=== PATIENT | male | born 2000 | race Caucasian/White ===

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

== ENCOUNTER → 2018-01-29 14:16 | Outpatient (CLI) | payer MEDICAID, SELFPAY ==
[2018-01-29 16:53] LABS: Anion Gap 5 (5-15); BUN 15 mg/dL (7-18); BUN/Creat Ratio 18.3 RATIO (10-20); Calcium,Total 9.4 mg/dL (8.5-10.1); Chloride 105 mmol/L (98-107); Creatinine, Serum 0.82 mg/dL (0.70-1.30); EST Glomerular Filtration Rate 128 mL/min (>60); Est Glom Filt Rate - Afr Amer 155 mL/min (>60); Glucose 90 mg/dL (74-106); Potassium 3.6 mmol/L (3.5-5.1); Sodium Level 142 mmol/L (136-145); Thyroid Stim Hormone (TSH) 2.61 uIU/mL (0.358-3.74)
== END ==
PROVIDERS: Family Provider Family Medicine; PCP Family Medicine; Visit Provider Family Medicine
DX: Z01.818 Encounter for other preprocedural examination (principal); E03.9 Hypothyroidism, unspecified; G80.1 Spastic diplegic cerebral palsy
CPT/HCPCS: 36415; 80048; 84443; 97110; 97140

== ENCOUNTER 2018-02-05 01:50 | Emergency (ER) | payer MEDICAID, SELFPAY ==
[2018-02-05 01:50] VITALS: BP 148/69; PULSE 69; RESP 18; TEMP 36.9; O2SAT 100; BMI 18.6
--- NOTE | 2018-02-05 02:14 | ED.DCSUM_ITS ---
- ER Visit Summary Date of Service: 02/05/18 Chief Complaint: [] Postoperative leg pain History of Present Illness: The patient is a 17 M complaining of pain in his left Achilles and foot postoperative. 5 days ago he had a lengthening procedure done on his left Achilles at the [facility]. He has been having some pain in this area. He just took his last Toradol earlier today. He is taking no narcotics but was given a prescription for oxycodone that he never filled. He is also taking as needed Valium. Requesting something for pain. He said it hurts to walk on the side. The right side is not bothering him. Physical Examination: [] Vital signs reviewed General: Well-nourished well-developed Head: Normocephalic atraumatic Eyes: Pupils equal round and reactive to light extraocular movements intact ENT: TMs clear no hemotympanum no trauma Neck: Nontender full range of motion Cardiovascular: Regular rate rhythm no murmurs normal S1-S2 Respiratory: No distress clear to auscultation bilaterally chest nontender Abdomen: Soft nontender nondistended normal bowel sounds no masses Back: Nontender no CVA tenderness Extremities: Bilateral lower legs casted to mid martinez. Capillary refill bilateral feet normal. Normal dorsalis pedis pulses bilateral. Skin: Normal color no trauma Neuro alert oriented cranial nerves II through XII intact normal strength sensation reflexes Test Results: [] Emergency Department Course and Treatment: [] At this time I have a low suspicion for compartment syndrome. I do not think any to take off his cast. He is mainly here for pain control. Given a shot of morphine. Will fill his oxycodone as an outpatient. Will call his surgeon tomorrow for recheck in the office Treatment Plan: [] Disposition: [] Impression: [] Left foot postoperative pain This note was generated with [employer] dictation software. It may contain incorrect words, spelling, and punctuation that were not noted in review of the chart prior to signing ED Disposition - Plan for ED Patient: Chief Complaint: Lower Extremity Injury Referrals: Karissa Alberto MD [Primary Care Provider] -
--- NOTE | 2018-02-05 02:14 | ED.DEP ---
ED Disposition - Plan for ED Patient: Disposition: Home or Assisted Living Chief Complaint: Lower Extremity Injury Instructions: ED Post Op Pain Referrals: Karissa Alberto MD [Primary Care Provider] - Additional Instructions: Call Your surgeon to have your foot evaluated tomorrow
[2018-02-05] MEDS: Morphine 4 MG/ML Syringe IM (02:20)
[2018-02-05 02:43] VITALS: BP 132/67; PULSE 80; RESP 18; O2SAT 98
== END 2018-02-05 02:43 | disposition home or self-care (01) ==
PROVIDERS: Emergency Provider Emergency Medicine; Family Provider Family Medicine; PCP Family Medicine
DX: G89.18 Other acute postprocedural pain (principal); M79.672 Pain in left foot; Z79.899 Other long term (current) drug therapy; Z98.890 Other specified postprocedural states
CPT/HCPCS: 96372; 99282

== ENCOUNTER 2018-02-06 23:33 | Emergency (ER) | payer MEDICAID, SELFPAY ==
[2018-02-06 23:33] VITALS: BP 112/82; PULSE 128; RESP 20; TEMP 36.8; O2SAT 98; BMI 18.0
--- NOTE | 2018-02-06 23:43 | ED.VISSUMM ---
- ER Visit Summary Date of Service: 02/06/18 Chief Complaint: [] Left lower extremity pain History of Present Illness: The patient is a 17 M [] patient stated he has left lower extremity pain. It has been since he has surgery approximately a week ago on his Achilles. It hurts on the left side. He lengthening surgery. I saw him 2 days ago for the same pain. He gave a shot of morphine which helped. However he is only taking Tylenol volumes and baclofen. Physical Examination: [] Vital signs reviewed General: Well-nourished well-developed Head: Normocephalic atraumatic Eyes: Pupils equal round and reactive to light extraocular movements intact ENT: TMs clear no hemotympanum no trauma Neck: Nontender full range of motion Cardiovascular: Regular rate rhythm no murmurs normal S1-S2 Respiratory: No distress clear to auscultation bilaterally chest nontender Abdomen: Soft nontender nondistended normal bowel sounds no masses Back: Nontender no CVA tenderness Extremities: Nontender active range of motion ?4 extremities no trauma. Cast removed as well as dressings. His surgical incision on his posterior Achilles is clean dry intact without abnormalities. His lower leg is normal. There is no swelling. His pulses are good distally. There is no evidence of compartment syndrome. Good cap refill with normal color of his foot. Skin: Normal color no trauma Neuro alert oriented cranial nerves II through XII intact normal strength sensation reflexes Test Results: [] Emergency Department Course and Treatment: [] Given an injection of morphine and will be placed in a posterior leg splint. Given crutches. At this time it is likely secondary to his discomfort from his cast. He will be given a short course of Percocet for home. Will follow-up with his surgeon Treatment Plan: [] Disposition: [] Impression: [] Post operative lower extremity pain This note was generated with [employer] dictation software. It may contain incorrect words, spelling, and punctuation that were not noted in review of the chart prior to signing ED Disposition - Plan for ED Patient: Chief Complaint: Lower Extremity Injury Referrals: Adam Paiz MD [Primary Care Provider] -
--- NOTE | 2018-02-07 00:16 | ED.DEP ---
ED Disposition - Plan for ED Patient: Disposition: Home or Assisted Living Chief Complaint: Lower Extremity Injury Instructions: ED Post Op Pain Prescriptions: Oxycodone HCl/Acetaminophen [Percocet 5/325] 1 tab PO Q6H PRN PRN 3 Days #12 tab PRN Reason: Pain Referrals: Adam Paiz MD [Primary Care Provider] - Additional Instructions: follow with your surgeon.
[2018-02-07] MEDS: Morphine 4 MG/ML Syringe IM (00:19)
[2018-02-07 00:51] VITALS: BP 121/74; PULSE 92; RESP 16; O2SAT 100
--- NOTE | 2018-02-07 00:52 | ED.RN ---
THIS NURSE REVIEWED D/C INSTRUCTIONS WITH PT. PT VERBALIZED UNDERSTANDING OF INSTRUCTIONS. PT DENIES FURTHER NEEDS OR QUESTIONS AT THIS TIME.
== END 2018-02-07 00:52 | disposition home or self-care (01) ==
PROVIDERS: Emergency Provider Emergency Medicine; Family Provider Family Medicine; PCP Family Medicine
DX: G89.18 Other acute postprocedural pain (principal); M79.605 Pain in left leg; Z98.890 Other specified postprocedural states; Z79.899 Other long term (current) drug therapy
CPT/HCPCS: 29515; 96372; 99282

== ENCOUNTER 2018-02-17 10:25 | Emergency (ER) | payer MEDICAID, SELFPAY ==
[2018-02-17 10:26] VITALS: BP 149/92; PULSE 94; RESP 18; TEMP 36.3; O2SAT 99; BMI 18.6
--- NOTE | 2018-02-17 12:09 | ED.VISSUMM ---
- ER Visit Summary Date of Service: 02/17/18 Chief Complaint: Right leg pain History of Present Illness: The patient is a 17 M is status post Achilles surgery bilaterally on January [address] Lamas in [place]. He reports pain to his right leg at the ankle bilaterally. This started over the past few days. He also reports that he thinks he got this cast wet. He has no complaints regarding the left leg. No cough, fever, chest pain, or other symptoms. Physical Examination: Afebrile and vital signs unremarkable. Patient has bilateral lower extremity casts in place. He is neurovascularly intact distally. Test Results: None Emergency Department Course and Treatment: Right lower extremity cast was removed by me. The patient tolerated this well. He did have a couple areas of abrasions from the salt on his left foot. These were superficial. Incision is clean, dry, intact. No sign of redness, warmth, drainage, or bleeding. He is neurovascular intact distally. Skin otherwise appears normal. Sensation intact. Compartments soft. Calves soft and supple. Symptoms resolved with cast removal. No indication for any diagnostic testing. A splint was applied. He tolerated this well. Neurovascularly intact distally afterwards. He will follow-up with his surgeon. Call tomorrow. Return for any new or worsening issues. Treatment Plan: As above Disposition: Discharged Impression: 1. Right leg pain This note was generated with [employer] dictation software. It may contain incorrect words, spelling, and punctuation that were not noted in review of the chart prior to signing ED Disposition - Plan for ED Patient: Chief Complaint: Other, Pain/Inj Referrals: Adam Paiz MD [Primary Care Provider] -
--- NOTE | 2018-02-17 12:11 | ED.DEP ---
ED Disposition - Plan for ED Patient: Chief Complaint: Other, Pain/Inj Instructions: Discharge Instructions: Splint Care Additional Instructions: follow up with your surgeon
== END 2018-02-17 12:47 | disposition home or self-care (01) ==
PROVIDERS: Emergency Provider Emergency Medicine; Family Provider Family Medicine; PCP Family Medicine
DX: M79.604 Pain in right leg (principal); Z98.890 Other specified postprocedural states; S90.811A Abrasion, right foot, initial encounter; X58.XXXA Exposure to other specified factors, initial encounter; Y93.9 Activity, unspecified; Y92.9 Unspecified place or not applicable; Y99.9 Unspecified external cause status
CPT/HCPCS: 29515; 99282

== ENCOUNTER 2018-03-28 13:30 | Outpatient (RCR) | payer MEDICAID, SELFPAY ==
--- NOTE | 2018-01-23 15:52 | HP.PTEVAL ---
Patient's Visit Information BRITNEY WEBBER is a 17 year old M referred to Physical Therapy by ANUJA LAMAS with a diagnosis of Spastic CP. Date of Evaluation: 01/23/18 Physical Therapist: Aleksandr Conway DPT, OC - Visit Plan Frequency: 2-3x /Week Duration: 4-6 Weeks Plan: 3x/week after his surgery and 2 visits prior. Prior to surgery, work on verifying that flexion of L/S and NS positioning are helpful for his back pain, please do STM to LB and ES/MH for pain. EG to recheck after next weeks surgery but anticipate quad, HS, gastroc, add, hip flexor rollout and stretching in addition to core /NS strength adn progress to I HEP. - Subjective Subjective: Will have surgery in a week for achilles transfer adn HS lenghtening. Dr. Lamas sent him here for LBP shooting into legs due to muscles stretching. Surgery is due to pain. Hoping sice he is done growing this will be the last one. Has been hurting for about three months insidious onset. Pain can also shoot down postreioly to knees and to ankles. Pain is constant and worse with activity on feet and paying basketball or walking long distances. Ex regular include walking 1/2 mile, tries to stretch some time. Sitting is mostly comfortable. 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 Wants to run but is too painful. Went to work for a month at [employer] but pain got worse. Hoping this surgery will take care of that. Live with girlfriend. Basic ADLs are good. Wants to workout without pain to run a mile and a half for the [employer]. - Pain LBP to legs Pain Intensity (Out of 10): 2 Pain Intensity Range: 0, 8 - Objective L leg 1/2 inch hort vs R standing and supine but holds L knee slightly more bent in standing and slight contracture in supine. L -8 DF aND r -3, 90-90 hs TEST AT -60 B. quad tight max B and 90 degrees only in prone, hip extension only to neutral B, pulling in back. LB AROM ext is mod limited adn painful centrally, SB are mod limited and B painful centrally, flexion is max limited adn painful centrally. reflexes in patella and achilles are 3/3 and clonus B consistent with CP. Sensation WNL to gross light touch. Walks I with L heel not hitting ground and tighter than R. Hips are adducted adn B knees slightly bent with ambulation. -6 L knee flexion in supine. I with trasnfers and ambulation. sits slouched with slight ant pelvic tilt, worse in supine with legs straight. - Goals Goal 1:: patient back pain 1/10 at worst adn intermittent, 90% better overall. Goal Time Frame: 4-6 Weeks Goal 2:: Patient I in appropriate LE stretches and LB core ex to minimize future problems. Goal Time Frame: 4-6 Weeks Goal 3:: Pt feel good enough to attempt to work Goal Time Frame: 4-6 Weeks Goal 4:: Run 1/2 mile without pain to attempt academy run. Goal Time Frame: 4-6 Weeks - Rehabilitation Potential Physical Therapy Diagnosis: tightness in LE and pelvis leading to LBP. Rehabilitation Potential: Fair - Anticipated Interventions Patient/Client Instruction: Educate patient on: Condition, Plan of Care For the Purpose of:: To decrease pain, To increase ROM, To increase tolerance to activity/condition/position Therapeutic Exercise to Include: Strength training, Flexibilty training, Passive ROM, Active ROM, Dynamic Lumbar Stabilization For the Purpose of:: To decrease pain, To increase ROM, To increase tolerance to activity/condition/position, To improve ability of physical actions for home/community/work/leisure Manual Therapy Techniques to Include: Soft tissue mobilization For the Purpose of:: To decrease pain, To improve nutrient delivery to tissue TENS: Yes Thermo therapy (hot pack): Yes For the Purpose of:: To decrease pain, To increase ROM, To increase tolerance to activity/condition/position, To improve ability of physical actions for home/community/work/leisure, To improve gait and locomotor functions Thank you for the opportunity to evaluate your patient. For Medicare and Medicare HMO plans, please review the plan of care and approve it. It will need to be FAXED BACK to us at [phone] for Medicare purposes. Please let me know if there are questions or concerns regarding this plan of care. Physician Signature: Date:
--- NOTE | 2018-02-20 15:12 | HP.PTREVAL_ITS ---
ANUJA JOHNSON, It has been my pleasure to treat BRITNEY WEBBER over the last 4 visits for Spastic CP. Please see the progress note below for an update on the physical therapy plan of care! Subjective: 01/30 B achilles lengthening. In casts ever since but needed changed due to tightness. R one yesterday. They come off next week. No pain lately since cast changed. Using walker for balance as he is clumsy with casts on. Not much pain lately. No HEP lately, doing pressups every now and then. No back or leg pain since surgery. Objective/Function: Walks with slight L trendelenberg, able to stand straight knees and hips but tends posterior due to casts on feet/ankles B. HS length - 30 B 90/90, hip flexors mildly tight as are quads. Weakness evident on core with ambulation. Full L/S AROM without pain today. OVERALL PAIN MUCH BETTER AND ABOLISHED. BALANCE, HIP AND CORE STRENGTH ADN FLEX GASTROC EVENTUALLY WILL NEED ADDRESSED. Plan Plan: After casts removed, will see 2x/week for 4 weeks for... 1. balance check and training with gait. 2. gaastroc stretches. 3. core strength and progress HEP. 4. monitor need for further HS/quad stretching/improvement. 5. progress to running as able. Goals Goal 1:: patient back pain 1/10 at worst adn intermittent, 90% better overall. Goal Time Frame: 4-6 Weeks Goal 2:: Patient I in appropriate LE stretches and LB core ex to minimize future problems. Goal Time Frame: 4-6 Weeks Goal Progress: Progressing Goal 3:: Pt feel good enough to attempt to work Goal Time Frame: 4-6 Weeks Goal 4:: Run 1/2 mile without pain to attempt [employer] run. Goal Time Frame: 4-6 Weeks Anticipated Interventions Patient/Client Instruction: Educate patient on: Condition, Plan of Care For the Purpose of:: To decrease pain, To increase ROM, To increase tolerance to activity/condition/position Therapeutic Exercise to Include: Strength training, Flexibilty training, Passive ROM, Active ROM, Dynamic Lumbar Stabilization For the Purpose of:: To decrease pain, To increase ROM, To increase tolerance to activity/condition/position, To improve ability of physical actions for home/ community/work/leisure Manual Therapy Techniques to Include: Soft tissue mobilization For the Purpose of:: To decrease pain, To improve nutrient delivery to tissue TENS: Yes Thermo therapy (hot pack): Yes For the Purpose of:: To decrease pain, To increase ROM, To increase tolerance to activity/condition/position, To improve ability of physical actions for home/ community/work/leisure, To improve gait and locomotor functions Please do not hesitate to contact me at [phone] by phone or Fax: if you have questions or concerns regarding this new plan of care! Sincerely, Aleksandr Conway, DPT, OC
--- NOTE | 2018-03-28 14:07 | HP.PTREVAL_ITS ---
ANUJA JOHNSON, It has been my pleasure to treat BRITNEY WEBBER over the last 5 visits for Spastic CP. Please see the progress note below for an update on the physical therapy plan of care! Subjective: Was on vacatioon. Out of casts 4 weeks ago and has boots for 4 weeks which he will get out of next week. Discomfort pain is L heel if walking too far(30 mintes). No back pain lately. Not much achilles pain. Wants to get back to running for basketball and rugby. Says doctor told him to wean out of boot starting tomorrow. Objective/Function: some swelling L achilles vs R. L leg shorter 3/4 today. L achilels tendon thicker postriorly vs R slightly, both just mildly tender. Stands with R knee bent due to LLD and when straightened he is off balance. Walks without antlagia but obvious deficits with LLD without boot. Plan Plan: f/u 1-2 weeks after weaned back to walking without boots. Likely 1- 2x/week for 4-6 after that time for progression of activity and soft tissue treatment with fair prognosis toward goals which are appropriate now after surgery. Address LLD with heel lift as needed and teach strength for ankles, ensure stretching. May need more frequent treatments for STM and stretching as wella s education on weaning back to activity, may need infrequent visits to progress activity, will decide at next session. Goals Goal 1:: patient back pain 1/10 at worst adn intermittent, 90% better overall. Goal Time Frame: 4-6 Weeks Goal Progress: Progressing Goal 2:: Patient I in appropriate LE stretches and LB core ex to minimize future problems. Goal Time Frame: 4-6 Weeks Goal Progress: Progressing Goal 3:: Pt feel good enough to attempt to work Goal Time Frame: 4-6 Weeks Goal Progress: approp Goal 4:: Run 1/2 mile without pain to attempt academy run. Goal Time Frame: 4-6 Weeks Goal Progress: approp. Anticipated Interventions Patient/Client Instruction: Educate patient on: Condition, Plan of Care For the Purpose of:: To decrease pain, To increase ROM, To increase tolerance to activity/condition/position Therapeutic Exercise to Include: Strength training, Flexibilty training, Passive ROM, Active ROM, Dynamic Lumbar Stabilization For the Purpose of:: To decrease pain, To increase ROM, To increase tolerance to activity/condition/position, To improve ability of physical actions for home/community/work/leisure Manual Therapy Techniques to Include: Soft tissue mobilization For the Purpose of:: To decrease pain, To improve nutrient delivery to tissue TENS: Yes Thermo therapy (hot pack): Yes For the Purpose of:: To decrease pain, To increase ROM, To increase tolerance to activity/condition/position, To improve ability of physical actions for home/community/work/leisure, To improve gait and locomotor functions Please do not hesitate to contact me at [phone] by phone or if you have questions or concerns regarding this new plan of care! Sincerely, Aleksandr Conway, DPT, OC
--- NOTE | 2018-06-21 13:55 | HP.PT.NRP ---
HP - Discharge Summary (1) - Patient Information BRITNEY WEBBER was seen in my office for initial evaluation on 01/23/18. The following Plan of Care was established for this patient: Initial Frequency: 2-3x /Week Initial Duration: 4-6 Weeks - Anticipated Interventions Patient/Client Instruction: Educate patient on: Condition, Plan of Care For the Purpose of:: To decrease pain, To increase ROM, To increase tolerance to activity/condition/position Therapeutic Exercise to Include: Strength training, Flexibilty training, Passive ROM, Active ROM, Dynamic Lumbar Stabilization For the Purpose of:: To decrease pain, To increase ROM, To increase tolerance to activity/condition/position, To improve ability of physical actions for home/community/work/leisure Manual Therapy Techniques to Include: Soft tissue mobilization For the Purpose of:: To decrease pain, To improve nutrient delivery to tissue TENS: Yes Thermo therapy (hot pack): Yes For the Purpose of:: To decrease pain, To increase ROM, To increase tolerance to activity/condition/position, To improve ability of physical actions for home/community/work/leisure, To improve gait and locomotor functions This patient was last seen in our office 03/28/18. Pertinent comments regarding their Physical therapy will appear below: Pt seen 5 visits of POC. At his last recheck, he was in casts and was to f/u a week later for recheck. He did not schedule it for another month and then no showed for that visit at end of April and has neglected to reschedule. at this point it has been over two months and I will discontinue due to nonattendance. At this point I will be discontinuing this patient from physical therapy. I would be happy to see this patient again in the future if found appropriate by the physician. Thank you! Aleksandr Conway, DPT, OCS, CSCS
== END 2018-03-28 19:00 | disposition home or self-care (01) ==
LOC: PT 13:30
PROVIDERS: Family Provider Family Medicine; PCP Family Medicine
DX: Z01.818 Encounter for other preprocedural examination (principal); G80.1 Spastic diplegic cerebral palsy; E03.9 Hypothyroidism, unspecified
CPT/HCPCS: 97014; 97110; 97140; 97162; 97530; G0283

== ENCOUNTER 2018-04-03 21:26 | Emergency (ER) | payer MEDICAID, SELFPAY ==
[2018-04-03 21:26] VITALS: BP 157/93; PULSE 78; RESP 16; TEMP 36.7; O2SAT 98; BMI 19.2
--- NOTE | 2018-04-03 21:55 | ED.DCSUM_ITS ---
- ER Visit Summary Date of Service: 04/03/18 Chief Complaint: Back pain History of Present Illness: The patient is a 17 M presenting with back pain. Patient states he was helping someone move today. He lifted appliances and a heavy fish tank. He then started having lower back pain. He denies bowel or bl adder incontinence. Denies numbness or weakness. He is able to ambulate. He did not take any medication prior to arrival. Physical Examination: Vitals are stable. Patient is afebrile. Alert no acute distress. HEENT exam is unremarkable. Neck is supple. Lungs are clear and equal bilaterally. Heart is regular rate and rhythm. Abdomen is soft nontender nondistended. Back bilateral paraspinal lumbar tenderness, no midline tenderness Extremities are unremarkable. Skin is warm and dry. No focal neurologic deficit. Remainder of exam is unremarkable. Emergency Department Course and Treatment: Patient was given Toradol, Norflex IM. On reevaluation, patient is feeling improved. He is given a prescription for Naprosyn and Flexeril. He is advised to follow-up with his primary care physician. He is advised to return to the ED for worsening complaints. Disposition: Discharge home Impression: Lumbar strain This note was generated with [employer] dictation software. It may contain incorrect words, spelling, and punctuation that were not noted in review of the chart prior to signing ED Disposition - Plan for ED Patient: Chief Complaint: Back Instructions: ED Sprain Strain Lumbar Prescriptions: Naproxen [Naprosyn] 500 mg PO BID PRN #20 tablet Cyclobenzaprine [Flexeril] 10 mg PO TID PRN #20 tablet PRN Reason: Muscle Spasm Referrals: Adam Paiz MD [Primary Care Provider] -
[2018-04-03 22:08] VITALS: BP 125/65; PULSE 86; RESP 16; O2SAT 99
[2018-04-03] MEDS: Ketorolac 60 MG/2 ML Vial IM (22:12)
[2018-04-03] MEDS: Orphenadrine 60 MG/2 ML Ampul IM (22:12)
--- NOTE | 2018-04-03 22:48 | ED.DEP ---
ED Disposition - Plan for ED Patient: Chief Complaint: Back Instructions: ED Sprain Strain Lumbar Prescriptions: Naproxen [Naprosyn] 500 mg PO BID PRN #20 tablet Cyclobenzaprine [Flexeril] 10 mg PO TID PRN #20 tablet PRN Reason: Muscle Spasm Referrals: Adam Paiz MD [Primary Care Provider] -
[2018-04-03 23:18] VITALS: BP 115/84; PULSE 75; RESP 16; O2SAT 99
== END 2018-04-03 23:19 | disposition home or self-care (01) ==
LOC: ED 22:35
PROVIDERS: Emergency Provider Emergency Medicine; Family Provider Family Medicine; PCP Family Medicine
DX: S39.012A Strain of muscle, fascia and tendon of lower back, initial encounter (principal); X50.9XXA Other and unspecified overexertion or strenuous movements or postures, initial encounter; Y93.E6 Activity, residential relocation; Y92.9 Unspecified place or not applicable; Y99.9 Unspecified external cause status
CPT/HCPCS: 96372; 99282

== ENCOUNTER 2018-09-04 12:30 | Outpatient (RCR) | payer MEDICAID, SELFPAY ==
--- NOTE | 2018-08-13 14:40 | HP.PTEVAL ---
Patient's Visit Information BRITNEY WEBBER is a 18 year old M referred to Physical Therapy by [facility]ST[facility] with a diagnosis of SPASTIC DIPLEGIC CEREBRAL PALSEY,ACHILLES TENDON CONTRACTURE,GROIN PAIN. Date of Evaluation: 08/13/18 Physical Therapist: Dwaine Grace PT, Cert MDT, OCS - Visit Plan Frequency: 2x /Week Duration: 4 Weeks Plan: AGRRESIVE LE STETCHING,HAMSTRINGS,ACHILLES,HIP FLEXORS,STRENGTH HIPS ANKLES - Subjective Findings: This 18 y/o male presents to physical therapy with spastic diplegic cerebral palsy. Patient under s/p achilles tendon lengthening January 31 2018 at [facility] done by Dr Lamas. Patient was casted about 7 weeks ankle . Patient intially was in w/c for 4weeks ,then transferred to walking boots and needed walker for about 1month. Patient has tightness in ankle with playing basketball ,jogging per patient. Patient has no achilles pain ,but has right groin/thigh about [address] roman pulled groin. Patient had personal issues. reason didn't start PT sooner. Denies parathesia/tingling. Surgery affects ability to walk in morning or extended rest.Patient sleepng good. Patient condition affect QOL and RTQ. VOCATION: unemployed. SOCIAL: single - Pain Right Hip Pain Intensity (Out of 10): 0 Pain Intensity Range: 10 Bilateral Ankle Pain Intensity (Out of 10): 0 Pain Intensity Range: 10 - Objective POSTURE: knee valgus ,calcaneal valgus,forefoot valgus,pes planus. GAIT: bilateral knee valgus,calcaneal valgus,forefoot valgus ,knee slight flexed. NEURO denies parathesia/tingling,mild hyperflexia achilles,patella. FLAXABLITY: hams mod tight ,piriformis mod tight,hip flexors mod,quads min/mod. AROM: dorsiflexion 5 degrees,plantarflexion 50 degrees,hip flexion 110 degrees,IR 20. degrres pain right. PROM: ANKLE DF 0 degrees. LEG LENGTH: 1/2 short left, ompared to right. MMT: quads/hams 5/5,hip flexion hip ER/IR 4/5,3+/5 hip abd bilateral ,ankle 4/5 G-S - Special Tests R Hip Scour: Positive R Hip Trendelenberg - Glut Medius: Positive Comment: + YANG TEST - Goals Goal 1:: Independant with HEP Goal Time Frame: 4-6 Weeks Goal 2:: Patient to improve quality of gait 80% of the time. Goal Time Frame: 4-6 Weeks Goal 3:: Patient improve hip strength 4-/5 abduction to improve function. Goal Time Frame: 4-6 Weeks Goal 4:: Patient to improve dorsiflexion by 5 degrees to improve gait. Goal Time Frame: 4-6 Weeks Goal 5:: Patient to improve LFES score by 5- 10 ponts to improev QOL Goal Time Frame: 4-6 Weeks Goal Time Frame: 4-6 Weeks - Rehabilitation Potential Physical Therapy Diagnosis: This patient underwent s/p achilles tendon lengthening 2017 with weakess hip ,ankle ,tightness achilles,hamstring tightness impairs gait and function,along with developing right groin pain. Rehabilitation Potential: Good - Anticipated Interventions Patient/Client Instruction: Educate patient on: Condition, Plan of Care For the Purpose of:: To decrease pain, To increase ROM, To improve muscle performance and motor function, To improve ability to perform ADL's, To increase tolerance to activity/condition/position, To improve ability of physical actions for home/community/work/leisure, To improve gait and locomotor functions, To improve health of tissue, To decrease soft tissue restriction, To increase flexibility/ROM, To improve balance Therapeutic Exercise to Include: Strength training, Flexibilty training, Gait and locomotor training, Passive ROM, Active ROM, Dynamic Lumbar Stabilization Comment: HIP/ANKLE For the Purpose of:: To decrease pain, To increase ROM, To improve ability to perform ADL's, To increase tolerance to activity/condition/position, To improve performance and independence with ADL's, To improve ability of physical actions for home/community/work/leisure, To improve health of tissue, To decrease soft tissue restriction, To increase flexibility/ROM, To improve balance Thank you for the opportunity to evaluate your patient. For Medicare and Medicare HMO plans, please review the plan of care and approve it. It will need to be FAXED BACK to us at [phone] for Medicare purposes. For Medicare only, by signing this I certify the plan of care. Please let me know if there are questions or concerns regarding this plan of care. Physician Signature: Date:
--- NOTE | 2019-01-31 10:27 | HP.PTDCNRP_ITS ---
HP - Discharge Summary (1) - Patient Information BRITNEY WEBBER was seen in my office for initial evaluation on 08/13/18. The following Plan of Care was established for this patient: Initial Frequency: 2x /Week Initial Duration: 4 Weeks - Anticipated Interventions Patient/Client Instruction: Educate patient on: Condition, Plan of Care For the Purpose of:: To decrease pain, To increase ROM, To improve muscle perfor nelly and motor function, To improve ability to perform ADL's, To increase tolerance to activity/condition/position, To improve ability of physical actions for home/community/work/leisure, To improve gait and locomotor functions, To improve health of tissue, To decrease soft tissue restriction, To increase flexibility/ROM, To improve balance Therapeutic Exercise to Include: Strength training, Flexibilty training, Gait and locomotor training, Passive ROM, Active ROM, Dynamic Lumbar Stabilization For the Purpose of:: To decrease pain, To increase ROM, To improve ability to perform ADL's, To increase tolerance to activity/condition/position, To improve performance and independence with ADL's, To improve ability of physical actions for home/community/work/leisure, To improve health of tissue, To decrease soft tissue restriction, To increase flexibility/ROM, To improve balance This patient was last seen in our office 09/04/18. Pertinent comments regarding their Physical therapy will appear below: Patient seen for PT following PT from leg surgery focusing on stretching and progressing to strengthening. Thus patient is d/c. At this point I will be discontinuing this patient from physical therapy. I would be happy to see this patient again in the future if found appropriate by the physician. Thank you! Dwaine Grace, PT, Cert MDT, OCS
== END 2018-09-04 19:00 | disposition home or self-care (01) ==
LOC: PT 12:30
PROVIDERS: Family Provider Family Medicine; PCP Family Medicine
DX: M67.01 Short Achilles tendon (acquired), right ankle (principal); G80.1 Spastic diplegic cerebral palsy; M62.89 Other specified disorders of muscle; R10.31 Right lower quadrant pain
CPT/HCPCS: 97110; 97162

== ENCOUNTER → 2020-01-01 | Outpatient (CLI) | payer MEDICAID, SELFPAY | END | disposition home or self-care (01) | LOC: LABSPEC 17:10 | PROVIDERS: PCP Family Medicine | DX: Z20.828 Contact with and (suspected) exposure to other viral communicable diseases (principal); R91.8 Other nonspecific abnormal finding of lung field | CPT/HCPCS: 87635; G2023; U0003 ==

== ENCOUNTER 2020-01-15 01:16 | Emergency (ER) | payer MEDICAID, SELFPAY ==
[2020-01-15 01:19] VITALS: BP 119/70; PULSE 80; RESP 18; TEMP 36.7; O2SAT 98; BMI 19.2
--- NOTE | 2020-01-15 01:37 | RAD_ITS ---
STUDY: X-RAY CHEST REASON FOR EXAM: Male, 19 years old. PT STATES HE FINISHED A COURSE OF ABX FOR PNEUMONIA EARLIER THIS WEEK, TESTED NEGATIVE FOR COVID. STATES INCREASED SOB TECHNIQUE: AP COMPARISON: None. FINDINGS: The lungs are clear and expanded. There is no demonstrated pleural abnormality. Normal size heart. Normal mediastinum and zeynep. Normal visualized pulmonary arteries. Normal visualized aortic arch and descending thoracic aorta. Normal visualized thoracic spine. Normal visualized ribs, clavicles, and shoulders. There is no demonstrated abnormality of the visualized soft tissue structures of the upper abdomen. RAD/Chest 1 View (Portable) IMPRESSION: Negative x-ray examination of the chest. Electronically Signed: Garcia Quesada, at 2:14 EDT Tel , Service support ,
--- NOTE | 2020-01-15 02:02 | EKG12_ITS ---
Test Reason : SOB Blood Pressure : / mmHG Vent. Rate : 058 BPM Atrial Rate : 058 BPM P-R Int : 152 ms QRS Dur : 074 ms QT Int : 374 ms P-R-T Axes : 024 022 037 degrees QTc Int : 367 ms Sinus bradycardia with marked sinus arrhythmia Otherwise normal ECG Confirmed by SONAL MCMAHON, JOYCE ([id number]), restaurant expeditor LUCINDA KAUR ([id number]) on 01/19/2020 9:31:02 AM Referred By: DIVINA Confirmed By:DANIELLE PRUITT MD
[2020-01-15] MEDS: Ketorolac 30 MG/ML Syringe IM (02:11)
--- NOTE | 2020-01-15 02:19 | ED.VIS.GEN ---
History of Present Illness Chief Complaint: Shortness of Breath Informant: Patient Narrative: Patient is a 19-year-old male with a history of cerebral palsy who presents to the emergency room for cough, shortness of breath and chest wall pain. Symptoms have been present over the past couple of weeks. He was treated for pneumonia. He is not sure which antibiotic he was on but he did complete that. States that his body aches and overall generalized illness improved significantly after the antibiotics. His cough has persisted and he occasionally gets short of breath. His chest wall does hurt especially with coughing and pushing on it. He has not been taking anything for this otherwise. Denies any fevers or chills. No nausea/vomiting or nominal pain. He has been having a few episodes of diarrhea per day. No known sick contacts. He is a non-smoker. No production to the cough. No sore throat or ear pain. Patient was concerned as he was reading on the Internet and he thought he might have a dropped lung. Past Medical History - Allergies and Home Meds Allergies/Adverse Reactions: Allergies latex Allergy (Verified 01/15/20 01:17) Hives TAPE Adverse Reaction (Uncoded 01/15/20 01:17) Rash Primary Care Physician: Adam Paiz MD [Primary Care Provider] - 3-5 Days Prior records reviewed: Yes Past Medical History: - - Ureteral palsy Surgical History: - - Hip and Achilles surgery Smoking Status: Never smoker Alcohol: None Drugs: None - Family History Maternal Family History: Reports: No pertinent history Review of Systems All systems negative except as indicated General: Denies: Chills, Fever Eyes: Denies: Visual changes - bilaterally ENT: Denies: Bilateral ear pain Cardiovascular: Reports: Chest pain - Chest wall pain. Denies: Palpitations Respiratory: Reports: Dyspnea, Cough. Denies: Sputum Gastrointestinal: Reports: Diarrhea. Denies: Abdominal pain, Nausea, Vomiting Genitourinary: Reports: Dysuria Musculoskeletal: Denies: Myalgias, Swelling, Extremity Pain Skin: Denies: Rash, Wounds Neurological: Denies: Headache, Weakness Physical Exam Vital Signs/Narrative: Vital Signs Temp Pulse Resp BP Pulse Ox 01/15/20 01:19 98.0 F 80 18 119/70 98 Inital Vital Signs reviewed: Yes General: Well nourished, Well developed, No Acute Distress Head: Normocephalic, Atraumatic Eyes: Perrl, EOMI ENT: Moist mucous membranes, No rhinorrhea Neck: Supple, Nontender Cardiovascular: Regular rate, Regular rhythm, No murmurs Respiratory: No distress, CTA bilaterally, Chest tenderness Abdomen: Soft, Nontender, Nondistended, Normal bowel sounds Back: Nontender, Normal Inspection Extremities: Nontender, No edema. Negative for: Edema, Calf Tenderness Skin: Normal color, No rash Neurological: Alert, Oriented x3, Cranial nerves II-XII grossly intact, Normal Strength, Normal Sensation Psychological: Normal affect, Normal Mood Diagnostic/Tx/Re-eval - EKG Initial EKG Interpretation: - - Rate of 58 bpm in a sinus bradycardia. Normal intervals. Normal axis. No ST elevations or depressions appreciated. No T wave abnormalities. No prior EKG for comparison. - Medical Decision Making Patient presents to the emergency department for cough, shortness of breath and chest wall pain. He is getting over pneumonia. He states he has been improving but was concerned that his symptoms are still present. Upon arrival to the emergency department he is satting well on room air. Not tachycardic. Afebrile. Repeat chest x-ray obtained which did not show any evidence of consolidation. Basic lab work and EKG obtained as well. He had a coronavirus test which was negative already. Did improve with antibiotics. His chest wall is tender to palpation which is sent with costochondritis given his cough. Lab work did not reveal any significant acute abnormality. EKG not showing signs of ischemia or arrhythmia. After Toradol injection his chest wall pain is starting to feel better. At this time will discharge home in stable condition. He has been satting well on room air throughout ED stay. Very low concern for pulmonary embolism and is PERC negative. He otherwise is to follow-up with his PCP. If he develops any worsening or concerning symptoms he is to return to the emergency department immediately. He understands and is agreeable with this plan. ED Disposition - Plan for ED Patient: Disposition: Home or Assisted Living Diagnosis: Cough, Chest wall pain, Dyspnea Instructions: ED CHEST PAIN [place], ED Dyspnea Referrals: Adam Paiz MD [Primary Care Provider] - 3-5 Days
[2020-01-15 02:22] LABS: Absolute Lymphocyte Count 2.09 X10^3/uL (0.83-4.51); Absolute Neutrophil Count 2.5 X10^3/uL (2.0-7.7); Basophil# 0.04 X10^3/uL; Basophil% 0.8 % (0-1); Eosinophil# 0.12 X10^3/uL; Eosinophils% 2.3 % (0-5); Hematocrit 44.3 % (40-54); Hemoglobin 14.2 g/dL (13.0-16.5); Lymphocyte # 2.09 X10^3/ul (4.0); Lymphocyte % 40.7 % (19-41); Mean Corp Hgb Conc 32.1 g/dL (32-36); Mean Corpuscular Hgb 30.1 pg (27.0-32.0); Mean Corpuscular Volume 94.1 fL (80-94); Mean Platelet Vol. 11.2 fl (6.2-12.0); Monocyte# 0.35 X10^3/uL; Monocyte% 6.8 % (0-10); NRBC Flagged by Analyzer 0 % (0-5); Neutrophil # 2.51 X10^3/uL (2.7-7.7); Platelet Count 254 K/mm3 (150-450); RBC Distribution Width CV 12.6 % (11.6-14.6); RBC Distribution Width SD 43.7 fl (35.1-43.9); Red Blood Count 4.71 M/mm3 (4.6-6.2); White Blood Count 5.1 K/mm3 (4.4-11.0)
[2020-01-15 02:40] LABS: Anion Gap 3 (5-15); BUN 17 mg/dL (7-18); BUN/Creat Ratio 24.7 RATIO (10-20); Calcium,Total 8.9 mg/dL (8.5-10.1); Chloride 107 mmol/L (98-107); Creatinine, Serum 0.69 mg/dL (0.70-1.30); EST Glomerular Filtration Rate 153 mL/min (>60); Est Glom Filt Rate - Afr Amer 185 mL/min (>60); Estimated Creatinine Clearance 133.18 ml/min; Glucose 93 mg/dL (74-106); Potassium 3.6 mmol/L (3.5-5.1); Sodium Level 140 mmol/L (136-145)
[2020-01-15 03:04] VITALS: BP 108/70; PULSE 78; RESP 16; O2SAT 99
== END 2020-01-15 03:05 | disposition home or self-care (01) ==
PROVIDERS: Emergency Provider Emergency Medicine; PCP Family Medicine
DX: R05 Cough (principal); R07.89 Other chest pain; R06.00 Dyspnea, unspecified; G80.9 Cerebral palsy, unspecified; Z79.899 Other long term (current) drug therapy; Z87.01 Personal history of pneumonia (recurrent)
CPT/HCPCS: 71045; 80048; 84484; 85025; 93005; 96372; 99283

== ENCOUNTER 2020-03-13 01:29 | Emergency (ER) | payer MEDICAID, SELFPAY ==
[2020-03-13 01:30] VITALS: BP 143/72; PULSE 99; RESP 16; TEMP 36.3; O2SAT 100; BMI 21.3
--- NOTE | 2020-03-13 01:50 | ED.VIS.GEN ---
History of Present Illness Chief Complaint: Abd Pain Informant: Patient Narrative: Patient states he chronically has discomfort because of muscle tightness in his hamstrings and all the way around his buttocks into his lower back. He states it is not so much pain but it is really uncomfortable because everything is tight. He has undergone surgery for this, however he has to be in a cast for 4 to 6 weeks afterwards and he is trying to avoid that by getting Botox injections which are scheduled for Sunday, which is 2 days away. He states tonight he was trying to stretch these areas out multiple different ways because they were very tight and feeling uncomfortable, and in doing so he then started involving what felt like his abdominal wall muscles and making them sore as well so he presents to the ER asking for something to try to help with this so he can sleep tonight. It is approximately 1:30 - 2 AM. - Past Medical History (1) Cerebral palsy Status: Chronic (2) Chronic back pain Status: Chronic Past Medical History - Allergies and Home Meds Allergies/Adverse Reactions: Allergies latex Allergy (Verified 03/13/20 01:33) Hives TAPE Adverse Reaction (Uncoded 03/13/20 01:33) Rash Primary Care Physician: Adam Paiz MD [Primary Care Provider] - Surgical History: - - Hip and Achilles surgery Smoking Status: Never smoker - Family History Maternal Family History: Reports: No pertinent history Review of Systems General: Denies: Chills, Fever, Sweats Eyes: Denies: Visual changes - bilaterally, Diplopia ENT: Denies: Rhinorrhea, Sore throat Cardiovascular: Denies: Chest pain, Palpitations Respiratory: Denies: Dyspnea, Cough, Dyspnea on exertion Gastrointestinal: Denies: Abdominal pain, Nausea, Vomiting, Diarrhea, Melena, Hematochezia Genitourinary: Denies: Dysuria, Hematuria, Frequency Musculoskeletal: Denies: Back pain, Extremity Pain Skin: Denies: Rash, Wounds Neurological: Denies: Headache, Weakness, Numbness Physical Exam Vital Signs/Narrative: Vital Signs Temp Pulse Resp BP Pulse Ox 03/13/20 01:30 97.4 F L 99 16 143/72 H 100 Inital Vital Signs reviewed: Yes General: Well nourished, Well developed, No Acute Distress Head: Normocephalic, Atraumatic Eyes: Perrl, EOMI ENT: Moist mucous membranes, No rhinorrhea Neck: Supple, Nontender Cardiovascular: Regular rate, Regular rhythm, No murmurs Respiratory: No distress, CTA bilaterally, Chest nontender Abdomen: Soft, Nontender, Nondistended, Normal bowel sounds Back: Nontender, Normal Inspection Extremities: Nontender, No edema, - - FROM throughout all BLE and BUE joints. all compartments soft and ND. Skin: Normal color, No rash, No Trauma Neurological: Alert, Oriented x3, Cranial nerves II-XII grossly intact, Normal Strength, Normal Sensation, Normal Gait Psychological: Normal affect, Normal Mood Diagnostic/Tx/Re-eval - Medical Decision Making Patient will be given Toradol, oral baclofen and an oral Flexeril to see if that helps. He will be discharged after the medications given, he is driving himself home so we are avoiding medications that will make him drowsy and unfit for driving. ED Disposition - Plan for ED Patient: Disposition: Home or Assisted Living Diagnosis: Muscle tightness Instructions: ED ACHING MUSCLES Referrals: Adam Paiz MD [Primary Care Provider] - As Needed
[2020-03-13] MEDS: Ketorolac 60 MG/2 ML Vial IM (01:54)
[2020-03-13] MEDS: cycloBENZAPRine HCl 10 MG Tablet PO (01:55)
[2020-03-13] MEDS: Baclofen 10 MG Tablet PO (01:56)
== END 2020-03-13 01:50 | disposition home or self-care (01) ==
LOC: ED 01:58
PROVIDERS: Emergency Provider Emergency Medicine; PCP Family Medicine
DX: M62.9 Disorder of muscle, unspecified (principal); M54.9 Dorsalgia, unspecified; G89.29 Other chronic pain; G80.9 Cerebral palsy, unspecified
CPT/HCPCS: 96372; 99283

== ENCOUNTER 2020-03-25 21:00 | Emergency (ER) | payer MEDICAID, SELFPAY ==
[2020-03-25 21:01] VITALS: BP 149/77; PULSE 97; RESP 15; TEMP 36.2; O2SAT 99; BMI 18.3
--- NOTE | 2020-03-25 22:10 | RAD_ITS ---
STUDY: X-RAY - LEFT KNEE REASON FOR EXAM: Male, 19 years old. Twisting injury, felt pop. TECHNIQUE: 4 view(s) of the knee. COMPARISON: 06/11/2016 femoral radiographs. FINDINGS: No apparent acute fracture or osseous destruction. The patella is mildly high riding with thickening of the patellar tendon which is new compared to prior. Partially visible femoral adam intact. No apparent joint effusion. RAD/Knee 4 or More Views IMPRESSION: The patella is mildly high riding with thickening of the patellar tendon, new compared to prior. Concerning for injury to the patellar tendon. Please correlate with tenderness etc. MRI of the left knee without contrast would more definitively evaluate. Electronically Signed: Jose Guadalupe Humphries, at 22:33 EDT Tel , Service support ,
[2020-03-25 22:53] VITALS: BP 147/81; PULSE 86; RESP 14; O2SAT 99
--- NOTE | 2020-03-26 00:10 | ED.DCSUM_ITS ---
History of Present Illness Chief Complaint: Lower Extremity Injury Informant: Patient Occurred: Today Onset: Today Narrative: Patient is a 19-year-old male with history of cerebral palsy and spasticity especially of the lower extremities presenting with sudden onset of pain in his left knee. Patient states he was playing with his son when he felt a popping sensation in his superior medial left knee. He immediately had pain. Still walk on it but is having a hard time straightening out his leg saying that cause a lot of pain. Patient has had surgeries on his other knee at [facility] in [facility]. He is looking for CP specialist that he can follow with for his legs more locally. No other complaints at this time peer did not take any for pain prior to arrival. Past Medical History - Allergies and Home Meds Allergies/Adverse Reactions: Allergies latex Allergy (Verified 03/25/20 21:03) Hives TAPE Adverse Reaction (Uncoded 03/25/20 21:03) Rash Primary Care Physician: Arnaldo Noble DO [STAFF PHYSICIAN] - Past Medical History: - - Cerebral palsy Surgical History: - - Hip and Achilles surgery, right knee surgery Smoking Status: Former smoker - Family History Maternal Family History: Reports: No pertinent history Review of Systems General: Denies: Chills, Fever, Sweats ENT: Denies: Rhinorrhea, Sore throat Cardiovascular: Denies: Chest pain, Palpitations Respiratory: Denies: Dyspnea, Cough, Dyspnea on exertion Gastrointestinal: Denies: Abdominal pain, Nausea, Vomiting Musculoskeletal: Reports: Extremity Pain - Left knee. Denies: Back pain, Swelling Skin: Denies: Rash, Wounds Neurological: Denies: Headache, Weakness, Numbness Physical Exam Vital Signs/Narrative: Vital Signs Temp Pulse Resp BP Pulse Ox 03/25/20 22:53 86 14 147/81 H 99 03/25/20 21:01 97.2 F L 97 15 149/77 H 99 Inital Vital Signs reviewed: Yes - Extremity Exam Left Femur: - - Patient holds his leg in slight flexion of the knee and points to his quadricep tendon as the area of his pain. Negative for: Contusion, Deformity, Limited ROM Left Knee: Limited ROM - Holds knee in flexion with increased pain with extension of the knee. Straight leg mechanism is intact however painful for the patient., - - No obvious joint effusion noted. No associated erythema or warmth. No ligamental laxity appreciated. No significant tenderness palpation of the patellar tendon.. Negative for: Contusion, Deformity, Edema Left Tib Fib: Negative for: Contusion, Deformity, Edema, Limited ROM Left Ankle: Negative for: Contusion, Deformity, Edema, Limited ROM General: Well nourished, Well developed, - - Patient has abnormal muscle tone throughout, likely associated with his history of cerebral palsy. Head: Normocephalic, Atraumatic Eyes: Perrl, EOMI ENT: No Trauma, Moist Mucous Membranes Neck: Nontender, Full ROM Cardiovascular: Regular rate, Regular rhythm, No murmurs Respiratory: No distress, CTA bilaterally, Chest nontender Abdomen: Soft, Nontender, Nondistended, Normal bowel sounds Back: Nontender Skin: Normal color, No rash Neurological: Alert, Oriented x3, Cranial nerves II-XII grossly intact, Normal Strength, Normal Sensation Psychological: Normal affect Diagnostic/Tx/Re-eval Clinical Impression(s) from Imaging Studies Knee X-Ray 03/25/20 22:10 IMPRESSION: The patella is mildly high riding with thickening of the patellar tendon, new compared to prior. Concerning for injury to the patellar tendon. Please correlate with tenderness etc. MRI of the left knee without contrast would more definitively evaluate. Electronically Signed: Jose Guadalupe Yandel, at 22:33 EDT Tel , Service support , - Medical Decision Making Patient is evaluated for pain of his left medial/superior knee with associated popping sensation. X-ray obtained shows a high riding patella with thickening and changes of the patella tendon. This is not exactly where the patient's pain is. However patient's history is complicated because of his cerebral palsy diagnosis. Patient placed in a knee immobilizer and given orthopedic follow-up. He is also given information for the cerebral palsy spasticity clinic at [facility]. I am not sure if they will accept a 19-year-old but he is given the phone number regardless. He is given Motrin Tylenol for pain control. He is neuro vastly intact does not have any other injuries. Think he is stable for outpatient follow-up. He is able to ambulate. ED Disposition - Plan for ED Patient: Disposition: Home or Assisted Living Diagnosis: Left knee injury Instructions: ED Meniscal Injury Knee Poss Prescriptions: Ibuprofen [Motrin] 600 mg PO Q6H PRN PRN #20 tab PRN Reason: Pain Score 1-10/10 Prescription Printed Referrals: Arnaldo Noble DO [STAFF PHYSICIAN] - Additional Instructions: It is possible that you have an injury to your quadricep tendon or patella tendon. This needs further evaluation. Even referred to an orthopedist. There is a spasticity clinic for CP at [facility] the phone number is [phone]. Please call to see if you could follow with them or they might be able to give you further recommendations for follow-up. He can also talk to your primary care doctor. Alternate Tylenol and ibuprofen as needed for pain.
[2020-03-26] MEDS: Ibuprofen 600 MG Tablet PO (00:34)
[2020-03-26] MEDS: Acetaminophen 325 MG Tablet 650 MG PO (00:35)
== END 2020-03-26 00:35 | disposition home or self-care (01) ==
PROVIDERS: Emergency Provider Emergency Medicine; PCP Family Medicine
DX: S89.92XA Unspecified injury of left lower leg, initial encounter (principal); X50.1XXA Overexertion from prolonged static or awkward postures, initial encounter; Y93.9 Activity, unspecified; Y92.9 Unspecified place or not applicable; Y99.9 Unspecified external cause status; G80.1 Spastic diplegic cerebral palsy; Z87.891 Personal history of nicotine dependence
CPT/HCPCS: 73564; 99281; 99284

== ENCOUNTER 2020-04-12 14:59 | Outpatient (RCR) | payer MEDICAID, SELFPAY ==
--- NOTE | 2020-04-12 17:23 | HP.PTEVAL_ITS ---
Patient's Visit Information BRITNEY WEBBER is a 19 year old M referred to Physical Therapy by Lisandro Lockwood PA-C with a diagnosis of Left Knee Dislocation. Date of Evaluation: 04/12/20 Physical Therapist: Karolina Quispe DPT - Visit Plan Frequency: 2x /Week Duration: 4 Weeks Plan: Focus on LE and core s/s- functional mobility - Subjective Patient reports that he buckled his left knee- MD thinks its due to his CP- has a 16 month old son who keeps him on his toes. [place] a pop in the left knee- and it locked up- about 2 days and it loosened up but he still has tingling and pain. Went to the ER- reports patellar disclocation superiorly. Was put in a brace but he does not wear it. Saw ortho who wanted him to come to PT and work it out. The knee has some weakness in the thigh here and there. No pain at this point. This is the first injury. Has had x-rays- no MRI due to metal adam from hip to knee cap. Feels that he is back to 75% of where he was before. No problems with stairs. Last time he had pain 3 days after the injury. Sleep: not disturbed. PMHx: CP, Botox in achilles and hamstring March 15 (lasts about 3-4 months) Meds: muscle relaxer, Ibuprofen. - Objective Posture: FH, RS, increased kyphosis- can correct but does not maintain. Gait:crouched gait pattern- posterior pelvic tilt with toes turned out to the side and circumduction of the LE- no AFOs but reports had them when he was little. Stairs: asc/desc 8 recip no HR- ascending he circumducts the right LE- descending he turns his right LE into midline and has a decreased control with descent. SLS: Left: 3 seconds Right: 6 seconds. Palpation: not tender- increased patellar mobility- good tracking noted. Sensaton/Reflex: WFL. ROM: WFL in all planes. Flex: Left: HS: mild Gastroc: mild Right: HS: moderate, Gastroc: moderate. Strength:Core: fair, Left: Hip: 4/5 Knee: 5/5, Ankle: 5/5m Right: Hip: 4+/5, Knee: 5/5. Right Leg is tighter - Goals Goal 1:: Patient will be I with HEP and progression Goal Time Frame: 4-6 Weeks Goal 2:: Patient will demo 4+/5 strength in bilateral LE Goal Time Frame: 4-6 Weeks Goal 3:: Patient will SLS for 10 sec bilateral without LOB - Rehabilitation Potential Physical Therapy Diagnosis: Patient presents with hypmobility- he has decreased strength, flex and muscular endurance leading to abnormal gait and instability. Rehabilitation Potential: Good - Anticipated Interventions Patient/Client Instruction: Educate patient on: Benefits of Fitness Program Therapeutic Exercise to Include: Strength training, Endurance training, Balance training, Coordination, Agility training, Body mechanics, Postural training, Flexibilty training, Gait and locomotor training, Neuromotor development, Dynamic Lumbar Stabilization, Scapular Strength/Stabilization For the Purpose of:: To improve muscle performance and motor function TENS: Yes Cryotherapy (ice pack, ice massage): Yes Thermo therapy (hot pack): Yes Thank you for the opportunity to evaluate your patient. For Medicare and Medicare HMO plans, please review the plan of care and approve it. It will need to be FAXED BACK to us at [phone] for Medicare purposes. For Medicare only, by signing this I certify the plan of care. Please let me know if there are questions or concerns regarding this plan of care. Physician Signature: Date:
--- NOTE | 2020-05-20 11:39 | HP.PT.NRP ---
BRITNEY WEBBER was seen in my office for initial evaluation on 04/12/20. The following Plan of Care was established for this patient: Initial Frequency: 2x /Week Initial Duration: 4 Weeks Patient/Client Instruction: Educate patient on: Benefits of Fitness Program Therapeutic Exercise to Include: Strength training, Endurance training, Balance training, Coordination, Agility training, Body mechanics, Postural training, Flexibilty training, Gait and locomotor training, Neuromotor development, Dynamic Lumbar Stabilization, Scapular Strength/Stabilization For the Purpose of:: To improve muscle performance and motor function TENS: Yes Cryotherapy (ice pack, ice massage): Yes Thermo therapy (hot pack): Yes This patient was last seen in our office . 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 At this point I will be discontinuing this patient from physical therapy. I would be happy to see this patient again in the future if found appropriate by the physician. Thank you! Karolina Quispe DPT
== END 2020-04-12 19:00 | disposition home or self-care (01) ==
LOC: PT 14:59
PROVIDERS: PCP Family Medicine; Referring Provider Physician Assistant; Visit Provider Physician Assistant
DX: M22.8X2 Other disorders of patella, left knee (principal)
CPT/HCPCS: 97110; 97161

== ENCOUNTER 2020-07-03 10:34 | Emergency (ER) | payer MEDICAID, SELFPAY ==
[2020-07-03 10:35] VITALS: BP 123/78; PULSE 94; RESP 17; TEMP 36.9; O2SAT 98; BMI 19.1
--- NOTE | 2020-07-03 10:43 | RAD_ITS ---
STUDY: X-RAY - LEFT HAND REASON FOR EXAM: Male, 20 years old. Shut hand in car or. Pain in the third digit. TECHNIQUE: 3 view(s) of the hand. COMPARISON: None. FINDINGS: Normal radiocarpal articulation. Normal distal radioulnar joint. Normal visualized carpal bones. Normal carpal articulations Normal carpometacarpal articulation of the thumb. Normal second through fifth carpometacarpal joints. Normal metacarpi. Normal metacarpophalangeal joint of the thumb. Normal interphalangeal joint of the thumb. Normal proximal and distal phalanges of the thumb. Normal metacarpophalangeal joints of the second through fifth fingers. Normal proximal and distal interphalangeal joints of the second through fifth fingers. Normal phalanges of the second through fifth fingers. The soft tissue structures are unremarkable. RAD/Hand Min 3 Views IMPRESSION: Normal x-ray examination of the hand. Electronically Signed: Reagan Beard DO at 11:25 EST Tel [phone], Service support ,
--- NOTE | 2020-07-03 10:48 | ED.DCSUM_ITS ---
- ER Visit Summary Date of Service: 07/03/20 Chief Complaint: Left hand shot in car door History of Present Illness: The patient is a 20 M medical history of cerebral palsy. Patient states his mother got a new car yesterday the handles were up by the door frame and he states when he showed it he did pull his hand back far enough and he shot his left hand primarily the long finger but also the index and ring finger in the door. He has had pain and swelling since that time. He is right-hand dominant this is his left hand. He is never had any surgery or major injury to his left hand. Denies any other complaints. Physical Examination: Young male no acute distress vital signs stable afebrile. HEENT exam unremarkable. Neck nontender no lymphadenopathy. Lungs are clear. Heart regular rhythm. Abdomen soft nontender. His right upper and both lower extremities are nontender with normal range of motion. No injury to those extremities. His left shoulder elbow and wrist are nontender normal range of motion with no swelling. His left hand there is a subungual hematoma about 70% of his left long finger underneath the nail and bruising and swelling on the palmar tip of the left long finger. He has minimal tenderness to the left index and ring fingers. He has decreased range of motion due to pain and swelling of the left long finger. Skin is intact. There is no gross bony deformity. His palm is nontender. Test Results: Left hand x-ray 3 views interpreted by myself shows no acute abnormality. Mild soft tissue swelling of the left long finger. No fracture. No dislocation. I did go over the x-rays with the patient. Emergency Department Course and Treatment: X-ray of the left hand. Patient was offered but deferred Motrin. Treatment Plan: Ice and elevate. Tylenol and Motrin for pain. Follow-up if not improving. I did discuss with him if he wanted his subungual hematoma drained and he deferred. Disposition: Discharge Impression: Acute left hand Left ring finger subungual hematoma This note was generated with [employer] dictation software. It may contain incorrect words, spelling, and punctuation that were not noted in review of the chart prior to signing ED Disposition - Plan for ED Patient: Referrals: Adam Paiz MD [Primary Care Provider] -
--- NOTE | 2020-07-03 11:23 | ED.DEP ---
ED Disposition - Plan for ED Patient: Disposition: Home or Assisted Living Instructions: ED Contusion, Upper Extremity Referrals: Adam Paiz MD [Primary Care Provider] - 1 Week if not improving Additional Instructions: Ice and elevate his left hand to decrease pain and swelling. Tylenol and Motrin for pain. This should progressively get better skin to be sore for the next several days if it is not improving follow-up to have it reevaluated.
[2020-07-03 11:38] VITALS: RESP 18
== END 2020-07-03 11:38 | disposition home or self-care (01) ==
PROVIDERS: Emergency Provider Emergency Medicine; PCP Family Medicine
DX: S60.142A Contusion of left ring finger with damage to nail, initial encounter (principal); W23.0XXA Caught, crushed, jammed, or pinched between moving objects, initial encounter; Y93.9 Activity, unspecified; Y92.810 Car as the place of occurrence of the external cause; Y99.9 Unspecified external cause status; G80.9 Cerebral palsy, unspecified
CPT/HCPCS: 73130; 99282

== ENCOUNTER 2020-07-09 14:09 | Emergency (ER) | payer MEDICAID, SELFPAY ==
[2020-07-09 14:10] VITALS: BP 158/93; PULSE 115; RESP 18; TEMP 36.4; O2SAT 96; BMI 19.4
--- NOTE | 2020-07-09 14:22 | EKG12_ITS ---
Test Reason : CP Blood Pressure : / mmHG Vent. Rate : 088 BPM Atrial Rate : 088 BPM P-R Int : 152 ms QRS Dur : 074 ms QT Int : 338 ms P-R-T Axes : 044 039 045 degrees QTc Int : 408 ms Normal sinus rhythm with sinus arrhythmia Normal ECG Confirmed by SONAL MCMAHON, JOYCE ([id number]), editor sound LUCINDA KAUR ([id number]) on 07/12/2020 12:14:31 PM Referred By: SHER Confirmed By:DANIELLE PRUITT MD
--- NOTE | 2020-07-09 14:25 | ED.DCSUM_ITS ---
- ER Visit Summary Date of Service: 07/09/20 Chief Complaint: Chest pain History of Present Illness: The patient is a 20 M presenting with chest pain. Patient states this started 2 days ago. Pain has been continuous on the right side of his chest. He states he does do a lot of lifting at work but does not recall a specific injury. He has mild shortness of breath. He denies fever or cough. Denies other complaints. He has a family history of DVT, no other PE/DVT risk factors. Physical Examination: Vitals are stable. Patient is afebrile. Alert no acute distress. HEENT exam is unremarkable. Neck is supple. Lungs are clear and equal bilaterally. Mild right-sided chest tenderness with no crepitus Heart is regular tachycardic Abdomen is soft nontender nondistended. Extremities are unremarkable. Skin is warm and dry. No focal neurologic deficit. Remainder of exam is unremarkable. Emergency Department Course and Treatment: Patient was given IV fluids. CBC, chemistries unremarkable. Troponin is negative. D-dimer normal. Chest x-ray read by myself and radiology shows no acute process. EKG is sinus rhythm rate of 88 with no acute ischemic changes. On reevaluation, patient is resting comfortably. Advised to follow-up with primary care physician. Advised return to ED for worsening complaints. Disposition: Discharge home Impression: Atypical chest pain This note was generated with [employer] dictation software. It may contain incorrect words, spelling, and punctuation that were not noted in review of the chart prior to signing ED Disposition - Plan for ED Patient: Referrals: Adam Paiz MD [Primary Care Provider] -
[2020-07-09] MEDS: 0.9% Normal Saline 1,000 ML 1000 ML IV (14:32)
[2020-07-09 14:55] LABS: Absolute Lymphocyte Count 1.63 X10^3/uL (0.83-4.51); Absolute Neutrophil Count 3.2 X10^3/uL (2.0-7.7); Basophil# 0.02 X10^3/uL; Basophil% 0.4 % (0-1); Eosinophil# 0.02 X10^3/uL; Eosinophils% 0.4 % (0-5); Hematocrit 45.6 % (40-54); Hemoglobin 14.7 g/dL (13.0-16.5); Lymphocyte # 1.63 X10^3/ul (4.0); Lymphocyte % 31.9 % (19-41); Mean Corp Hgb Conc 32.2 g/dL (32-36); Mean Corpuscular Volume 93.1 fL (80-94); Mean Platelet Vol. 11.5 fl (6.2-12.0); Monocyte# 0.24 X10^3/uL; Monocyte% 4.7 % (0-10); NRBC Flagged by Analyzer 0 % (0-5); Neutrophil # 3.18 X10^3/uL (2.7-7.7); Neutrophil % 62.2 % (47-70); Platelet Count 192 K/mm3 (150-450); RBC Distribution Width CV 12.5 % (11.6-14.6); RBC Distribution Width SD 43.5 fl (35.1-43.9); White Blood Count 5.1 K/mm3 (4.4-11.0)
--- NOTE | 2020-07-09 14:55 | RAD_ITS ---
STUDY: X-RAY CHEST REASON FOR EXAM: Male, 20 years old. COMPLAINS OF RIGHT SIDED CHEST PAIN FOR PAST 48 HRS. DYSPNEA TODAY TECHNIQUE: Single AP portable view of the chest. COMPARISON: 01/15/2020 FINDINGS: The lungs are clear and expanded. There is no demonstrated pleural abnormality. Normal size heart. Normal mediastinum and zeynep. Normal visualized pulmonary arteries. Normal visualized aortic arch and descending thoracic aorta. Normal visualized thoracic spine. Healed fracture the right clavicle. There is no demonstrated abnormality of the visualized soft tissue structures of the upper abdomen. RAD/Chest 1 View (Portable) IMPRESSION: Normal x-ray examination of the chest. Electronically Signed: Parminder Abbott MD at 15:17 EST Tel , Service support ,
[2020-07-09 15:02] LABS: Anion Gap 4 (5-15); BUN 25 mg/dL (7-18); BUN/Creat Ratio 29.8 RATIO (10-20); Calcium,Total 9.7 mg/dL (8.5-10.1); Chloride 102 mmol/L (98-107); Creatinine, Serum 0.84 mg/dL (0.70-1.30); EST Glomerular Filtration Rate 122 mL/min (>60); Est Glom Filt Rate - Afr Amer 147 mL/min (>60); Estimated Creatinine Clearance 109.65 ml/min; Glucose 84 mg/dL (74-106); Potassium 3.6 mmol/L (3.5-5.1); Sodium Level 138 mmol/L (136-145)
--- NOTE | 2020-07-09 16:13 | ED.DEP ---
ED Disposition - Plan for ED Patient: Instructions: ED Chest Pain, Uncertain Cause Referrals: Adam Paiz MD [Primary Care Provider] -
[2020-07-09 16:14] VITALS: BP 117/66; PULSE 89; RESP 19; O2SAT 99
== END 2020-07-09 16:20 | disposition home or self-care (01) ==
LOC: ED 14:48
PROVIDERS: Emergency Provider Emergency Medicine; PCP Family Medicine
DX: R07.89 Other chest pain (principal); R06.02 Shortness of breath
CPT/HCPCS: 71045; 80048; 84484; 85025; 85379; 93005; 96360; 99284; J7030; A4216

== ENCOUNTER 2020-08-26 02:14 | Emergency (ER) | payer MEDICAID, SELFPAY ==
[2020-08-26 02:15] VITALS: BP 154/94; PULSE 84; RESP 15; TEMP 36.3; O2SAT 98; BMI 19.1
--- NOTE | 2020-08-26 02:21 | ED.DCSUM_ITS ---
- ER Visit Summary Date of Service: 08/26/20 Chief Complaint: Back pain History of Present Illness: The patient is a 20 M who presents with back pain. He has had this back pain for months. It sharp in the lumbar region. Is worse with movement. It radiates down his right hip. He denies any fever, dysuria, urinary or bowel incontinence or retention. He has seen a marketing project specialist near [place] who did an x-ray and an MRI. He was told that he has bulging disks and this doctor recommended he get spinal injections but he has not received any yet. He is here [facility] for some relief and also a work note to give him light duty. 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 Physical Examination: Vital signs reviewed. HEENT exam unremarkable. Heart is regular rate and rhythm without murmurs. Lungs are clear to auscultation. Abdomen is soft and nontender. Extremities reveal no edema. Skin exam normal. Neurologic exam normal. Test Results: None performed Emergency Department Course and Treatment: The patient appears in no acute distress. He does have a history of cerebral palsy but he ambulates without difficulty despite this. I will give him naproxen and Zanaflex as he said Hussein was not working at home. He will need to follow-up with a marketing project specialist. He has had no falls or trauma. Do not feel he needs any x-rays at this time. Treatment Plan: [] Disposition: Discharge Impression: Lumbar back pain This note was generated with [employer] dictation software. It may contain incorrect words, spelling, and punctuation that were not noted in review of the chart prior to signing ED Disposition - Plan for ED Patient: Disposition: Home or Assisted Living Instructions: ED Back and Neck Pain, General Prescriptions: Naproxen [Naprosyn] 500 mg PO BID PRN #20 tablet Transmission Status: Pending to [facility] #30 Tizanidine HCl [Zanaflex] 2 mg PO Q8H PRN #12 tablet PRN Reason: Pain/Inflammation Transmission Status: Pending to [facility] Referrals: Adam Paiz MD [Primary Care Provider] -
[2020-08-26] MEDS: Naproxen 500 MG Tablet PO (02:24)
[2020-08-26] MEDS: tiZANidine HCl 2 MG Tablet PO (02:29)
== END 2020-08-26 02:40 | disposition home or self-care (01) ==
LOC: ED 02:38
PROVIDERS: Emergency Provider Emergency Medicine; PCP Family Medicine
DX: M54.5 Low back pain (principal); G80.9 Cerebral palsy, unspecified
CPT/HCPCS: 99283

== ENCOUNTER 2020-09-16 22:48 | Emergency (ER) | payer MEDICAID, SELFPAY ==
[2020-09-16 22:49] VITALS: BP 142/83; PULSE 90; RESP 18; TEMP 36.3; O2SAT 97; BMI 19.5
--- NOTE | 2020-09-16 23:01 | EKG12_ITS ---
Test Reason : CHEST PAIN Blood Pressure : / mmHG Vent. Rate : 068 BPM Atrial Rate : 068 BPM P-R Int : 138 ms QRS Dur : 066 ms QT Int : 354 ms P-R-T Axes : 072 027 032 degrees QTc Int : 376 ms Sinus rhythm with Premature atrial complexes Otherwise normal ECG Confirmed by GARCIA MCMAHON, KLAUS ([id number]), video tape editor LORI SOLIS ([id number]) on 09/20/2020 2:17:40 PM Referred By: TEO Confirmed By:KLAUS ZELAYA MD
--- NOTE | 2020-09-16 23:08 | RAD_ITS ---
STUDY: X-RAY CHEST REASON FOR EXAM: Male, 20 years old. cp TECHNIQUE: Single frontal view of the chest. COMPARISON: 07/09/2020 FINDINGS: The lungs are clear and expanded. There is no demonstrated pleural abnormality. Normal size heart. Normal mediastinum and zeynep. Normal visualized pulmonary arteries. Normal visualized aortic arch and descending thoracic aorta. Normal visualized thoracic spine. Old right clavicle fracture. There is no demonstrated abnormality of the visualized soft tissue structures of the upper abdomen. RAD/Chest 1 View IMPRESSION: No acute cardiopulmonary disease identified. Electronically Signed: Daniel Jackson MD at 23:23 EDT Tel , Service support ,
--- NOTE | 2020-09-16 23:11 | ED.VIS.GEN ---
History of Present Illness Chief Complaint: Chest Pain Narrative: Patient presents with chest pain for 1 week. It is achy. It is constant. It is not pleuritic. There is no radiation to the back. There is no tearing sensation. No lower extremity edema or calf pain. Past medical history: Cerebral palsy Medications: No chronic meds noncontributory Social history: Review of systems: All systems negative except as indicated General: Denies: Fever Eyes: Denies: Visual changes - bilaterally ENT: Denies: Rhinorrhea, Sore throat Cardiovascular: Chest pain as in HPI Respiratory: Denies: Dyspnea, Cough Gastrointestinal: Denies: Abdominal pain, Nausea, Vomiting Genitourinary: Denies: Dysuria Musculoskeletal: Denies: Myalgias Skin: Denies: Rash Neurological: Denies: Headache, no focal weakness Psych: Reports: negative Hematologic: Denies: Easy bruising, Easy bleeding Physical exam General: Well nourished, Well developed, No Acute Distress Head: Normocephalic, Atraumatic Eyes: Conjunctiva not pale ENT: Moist mucous membranes Neck: Supple, Nontender, No lymphadenopathy Cardiovascular: Regular rate, Regular rhythm Respiratory: No distress, CTA bilaterally Abdomen: Soft, Nontender, Nondistended Back: Nontender, Normal Inspection. Negative for: CVA tenderness Extremities: Decreased strength in his left lower extremity Skin: Normal color, No rash Neurological: Alert, Normal Strength, Normal Sensation Psychological: Normal affect Past Medical History - Allergies and Home Meds Allergies/Adverse Reactions: Allergies latex Allergy (Verified 09/16/20 22:51) Hives TAPE Adverse Reaction (Uncoded 09/16/20 22:51) Rash Primary Care Physician: Adam Paiz MD [Primary Care Provider] - Surgical History: - - Hip and Achilles surgery, right knee surgery Smoking Status: Never smoker - Family History Maternal Family History: Reports: No pertinent history Physical Exam Vital Signs/Narrative: Vital Signs Temp Pulse Resp BP Pulse Ox 09/16/20 22:49 97.3 F L 90 18 142/83 H 97 Diagnostic/Tx/Re-eval Chest X-Ray - ED: 1 View, Read by ED Physician, Read by Radiologist, Normal, Heart, Lungs - EKG Initial EKG Interpretation: - - Normal sinus rhythm with a rate of 68. Normal OH and QTc intervals. No ischemic changes. Interpreted by emergency doctor - Medical Decision Making ED work-up he appears well I will discharge him in stable condition. He is PERC negative. He has a normal EKG and normal x-ray. ED Disposition - Plan for ED Patient: Disposition: LEFT WITHOUT BEING SEEN Diagnosis: Chest pain Instructions: ED Chest Pain, Noncardiac Prescriptions: Omeprazole 20 mg PO DAILY #30 tab. Transmission Status: Pending to [facility] #30 Referrals: Adam Paiz MD [Primary Care Provider] - 3-5 Days
[2020-09-16 23:42] VITALS: BP 128/61; PULSE 88; RESP 21; O2SAT 98
== END 2020-09-16 23:43 | disposition home or self-care (01) ==
PROVIDERS: Emergency Provider Emergency Medicine; PCP Family Medicine
DX: R07.9 Chest pain, unspecified (principal); G80.9 Cerebral palsy, unspecified
CPT/HCPCS: 71045; 93005; 99282; A4216

== ENCOUNTER 2020-10-26 23:34 | Emergency (ER) | payer MEDICAID, SELFPAY ==
[2020-10-26 23:38] VITALS: BP 132/80; PULSE 90; RESP 18; TEMP 36; O2SAT 97; BMI 18.0
--- NOTE | 2020-10-27 00:12 | EX.ED.DYSGE1 ---
HPI History of Present Illness Chief Complaint: Anxiety Informant: patient Onset/Context/Timing Onset: Today Context: Sudden Onset Timing: Continuous Quality: Palpitations, shortness of breath and feeling anxious Location: After court hearing for visitation rights Current Severity: Mild Maximum Severity: Severe Worsened by: Court appearance Relieved by: Nothing Associated Symptoms Associated Symptoms: Palpitations and shortness of breath Narrative Narrative: Is a 20-year-old male with history of back problems on multiple medications. He presents because of feeling anxious with palpitations shortness of breath after court appearance. He was in court to get visitation rights to see his daughter. He has had this happen once before. He denies any other symptoms. He denies fever, chills night sweats. Eyes double vision, blurred vision loss of vision. No trouble speech or swallowing. He denies nausea, vomiting diarrhea. He denies urologic symptoms. He denies problems with balance or coordination. He denies muscle weakness or loss of sensation. He denies perioral numbness or numbness in his hands or feet. Prior similar symptoms: Yes Recent Illness/Hospitalization: No [facility] Medical History (Updated 10/27/20 @ 00:[address] Ashvin Durant MD) Cerebral palsy Herniated lumbar disc without myelopathy Home Medications amitriptyline 10 - 20 mg PO QHS 10/26/20 [History Last Taken Unknown] meloxicam 15 mg PO DAILY PRN 10/26/20 [History Last Taken Unknown] tizanidine 4 mg PO Q8H PRN 10/26/20 [History Last Taken Unknown] lorazepam [Ativan] 0.5 mg PO BID PRN #6 tab 10/27/20 [Rx Last Taken Unknown] Allergy/AdvReac Type Severity Reaction Status Date / Time latex Allergy Hives Verified 10/26/20 23:35 TAPE AdvReac Rash Uncoded 10/26/20 23:35 Social History (Updated 10/27/20 @ 00:[address] Ashvin Durant MD) Smoking Status: Never smoker alcohol intake: never substance use type: does not use ROS ROS ED Constitutional Constitutional ED: Denies chills, fever(s), subjective or sweats Eyes Eyes: Denies blurry vision or change in vision ENT ENT ED: Denies ear pain, rhinorrhea or sore throat Cardiovascular Cardiovascular: Reports palpitations and racing heartbeat; Denies chest pain Respiratory/Chest Respiratory/Chest: Reports dyspnea; Denies cough, dyspnea on exertion or sputum Gastrointestinal Gastrointestinal: Reports nausea; Denies abdominal pain, diarrhea or vomiting Genitourinary Genitourinary ED: Denies dysuria, hematuria or urinary frequency Musculoskeletal Musculoskeletal: Reports back pain; Denies arthralgias, myalgias or neck pain Integumentary Denies rash Neurologic Neurologic: Denies paresthesias or weakness Psychiatric Psychiatric: Reports anxiety and depression; Denies suicidal thoughts EXAM Physical Exam Const Vital Signs: 10/26/20 23:38 Temperature 96.8 F L Temperature Source Temporal Pulse Rate 90 Respiratory Rate 18 Blood Pressure 132/80 H Blood Pressure Mean 97 Pulse Ox 97 Oxygen Delivery Method Room Air Positive well nourished and well developed General Appearance ED: well developed and NAD HEENT Reports moist mucous membranes HEENT Narrative: Nose is normal. Ears are normal. There is no asymmetry of the face. Eyes PERRL and EOMs intact bilaterally General Eye ED: Negative for pale conjunctiva or scleral icterus Neck no lymphadenopathy, supple and no JVD Chest Wall inspection of chest normal and palpation of chest normal Resp normal respiratory effort and clear to auscultation bilaterally Cardio regular rate, regular rhythm, S1 normal heart sound, S2 normal heart sound and no murmurs Neuro oriented x3, CN's II-XII intact bilaterally and no sensory deficits noted Sensorium / Orientation: alert Motor Exam: strength 5/5 throughout Psych Psych Narrative: Affect is flat. Mood & Affect: anxious Skin no rashes or lesions noted MDM MDM MDM Narrative Medical decision making narrative: Patient presents with anxiety reaction related to visitation rights and court hearing. Patient was prescribed short course of Ativan. Since he drove himself he was told that he would not receive any medicine in the emergency department. Discharge Plan Triage Chief Complaint: Anxiety Other Complaint: Palpitations ED Provider: Ashvin Durant Dx/Rx/DC Orders Clinical Impression: Anxiety in acute stress reaction Instructions: ED Anxiety Reaction Prescriptions: New lorazepam [Ativan] 0.5 mg tablet 0.5 mg PO BID PRN (Reason: anxiety) Qty: 6 RF: 0 No Action meloxicam 15 mg Tablet 15 mg PO DAILY PRN (Reason: Pain) RF: 0 amitriptyline 10 mg Tablet 10 - 20 mg PO QHS RF: 0 tizanidine 2 MG tablet 4 mg PO Q8H PRN (Reason: Pain/Inflammation) RF: 0 Primary Care Provider: Adam Paiz Referrals: Adam Paiz MD [Primary Care Provider] - 3-5 Days if not improving Disposition Disposition: Home, self care
== END 2020-10-27 00:34 | disposition home or self-care (01) ==
PROVIDERS: Emergency Provider Emergency Medicine; PCP Family Medicine
DX: F43.0 Acute stress reaction (principal); F41.9 Anxiety disorder, unspecified; R00.2 Palpitations; R06.02 Shortness of breath; G80.9 Cerebral palsy, unspecified; M51.26 Other intervertebral disc displacement, lumbar region; F32.9 Major depressive disorder, single episode, unspecified; Z79.899 Other long term (current) drug therapy
CPT/HCPCS: 99282

== ENCOUNTER 2021-01-02 03:52 | Emergency (ER) | payer MEDICAID, SELFPAY ==
[2021-01-02 03:54] VITALS: BP 137/80; PULSE 67; RESP 18; TEMP 36.1; O2SAT 97; BMI 18.5
[2021-01-02 04:57] VITALS: BP 137/80; PULSE 67; RESP 15; O2SAT 97
--- NOTE | 2021-01-02 04:59 | ED.VIS.BACK ---
HPI History of Present Illness Chief Complaint: Back Narrative Narrative: 20-year-old male with history of cerebral palsy and chronic back pain presenting for prescription refill of tizanidine. He states he has chronic back pain and was referred to a surgeon at [facility] by Dr. Vargas. Patient states that he is too young to have spinal surgery but he does have some disc problems. He had an injection 2 months ago but states this wore off. He did have a prescription for Zanaflex however he states that he has run out and he currently does not have the resources to get to [place] to see his doctor. He denies any loss of bladder or bowel control. He denies urinary tension PFSH [facility] Medical History Cerebral palsy Herniated lumbar disc without myelopathy Home Medications amitriptyline 10 - 20 mg PO QHS 10/26/20 [History Last Taken Unknown] meloxicam 15 mg PO DAILY PRN 10/26/20 [History Last Taken Unknown] tizanidine 4 mg PO Q8H PRN 10/26/20 [History Last Taken Unknown] lorazepam [Ativan] 0.5 mg PO BID PRN #6 tab 10/27/20 [Rx Last Taken Unknown] tizanidine [Zanaflex] 4 mg PO Q8H PRN #20 cap 01/02/21 [Rx Last Taken Unknown] Allergy/AdvReac Type Severity Reaction Status Date / Time latex Allergy Hives Verified 10/26/20 23:35 TAPE AdvReac Rash Uncoded 10/26/20 23:35 Social History Smoking Status: Never smoker alcohol intake: never substance use type: does not use ROS ROS ED Constitutional Constitutional ED: Denies chills, fever(s) or sweats Eyes Eyes: Denies blurry vision or change in vision ENT ENT ED: Denies ear pain, rhinorrhea or sore throat Cardiovascular Cardiovascular: Denies chest pain, palpitations or racing heartbeat Respiratory/Chest Respiratory/Chest: Denies cough, dyspnea or sputum Gastrointestinal Gastrointestinal: Denies abdominal pain, constipation, diarrhea or vomiting Genitourinary Genitourinary ED: Denies dysuria, hematuria or urinary frequency Musculoskeletal Musculoskeletal: Reports back pain; Denies arthralgias, myalgias or neck pain Integumentary Denies abscess, Abrasions or rash Neurologic Neurologic: Denies headache(s), paresthesias or weakness Psychiatric Psychiatric: Denies anxiety, depression, suicidal ideation or suicidal thoughts Endocrine Endocrinology: Denies polydipsia or polyuria EXAM Physical Exam Const Vital Signs: 01/02/21 03:54 Temperature 97.0 F L Temperature Source Temporal Pulse Rate 67 Respiratory Rate 18 Blood Pressure 137/80 H Blood Pressure Mean 99 Pulse Ox 97 Oxygen Delivery Method Room Air General Appearance ED: Negative for pallor HEENT Reports normocephalic, head/scalp atraumatic and moist mucous membranes Eyes PERRL and EOMs intact bilaterally Neck no lymphadenopathy and supple Chest Wall inspection of chest normal and palpation of chest normal Resp normal respiratory effort and clear to auscultation bilaterally Auscultation: Negative for rales, rhonchi or wheezes Cardio regular rate and regular rhythm GI Auscultation: normoactive bowel sounds Palpation: soft Narrative: Deferred Back/Spine no CVA tenderness Back/Spine Narrative: Diffuse lumbar tenderness from L1-L5. No midline deformity or step-off. Extremity normal to inspection General Extremety ED: Negative for edema or tenderness General Extremity: Negative for edema Neuro oriented x3 and CN's II-XII intact bilaterally Sensorium / Orientation: alert Motor Exam: strength 5/5 throughout Psych mental status grossly normal Attitude: No agitated Skin no rashes or lesions noted and no wounds General Skin Exam: Negative for jaundice or pallor MDM MDM MDM Narrative Medical decision making narrative: Patient presents requesting refill on Zanaflex because he has chronic back pain and is unable to get to [place] for an office visit in a refill. He has no signs of cauda equina syndrome. Patient states this is a chronic issue. I do not believe he needs imaging at this time he has not had any acute injury. I will refill his Zanaflex and he will follow up with his spinal surgeon. Impression: 1. Acute on chronic back pain Discharge Plan Triage Chief Complaint: Back ED Provider: Cr Tierney Dx/Rx/DC Orders Instructions: ED Back Pain (Acute or Chronic) Prescriptions: New tizanidine [Zanaflex] 4 mg capsule 4 mg PO Q8H PRN (Reason: muscle spasticity) Qty: 20 RF: 0 No Action meloxicam 15 mg Tablet 15 mg PO DAILY PRN (Reason: Pain) RF: 0 amitriptyline 10 mg Tablet 10 - 20 mg PO QHS RF: 0 tizanidine 2 MG tablet 4 mg PO Q8H PRN (Reason: Pain/Inflammation) RF: 0 lorazepam [Ativan] 0.5 mg tablet 0.5 mg PO BID PRN (Reason: anxiety) Qty: 6 RF: 0 Primary Care Provider: Adam Paiz Referrals: Adam Paiz MD [Primary Care Provider] - Disposition Disposition: Home, Self Care
[2021-01-02] MEDS: tiZANidine HCl 2 MG Tablet 4 MG PO (05:20)
== END 2021-01-02 05:26 | disposition home or self-care (01) ==
LOC: ED 05:05
PROVIDERS: Emergency Provider Student in an Organized Health Care Education/Training Program; PCP Family Medicine
DX: M54.9 Dorsalgia, unspecified (principal); G89.29 Other chronic pain; Z76.0 Encounter for issue of repeat prescription; G80.9 Cerebral palsy, unspecified; M51.26 Other intervertebral disc displacement, lumbar region; Z79.899 Other long term (current) drug therapy
CPT/HCPCS: 99283

== ENCOUNTER 2021-01-15 21:35 | Emergency (ER) | payer MEDICAID, SELFPAY ==
[2021-01-15 21:36] VITALS: BP 161/97; PULSE 108; RESP 18; TEMP 36.5; O2SAT 96; BMI 18.0
--- NOTE | 2021-01-15 22:13 | EDS_ITS ---
HPI History of Present Illness Chief Complaint: Head Injury Narrative Narrative: Patient present after falling and hitting his head. He hit his head on hard surface. He did put his hand out. He fell over another person while doing a sports event. He did not hurt his hand. There is no abrasion on his head. He did not lose consciousness but did feel dazed for a short period of time. He never had nausea vomiting. His vision is normal. He always has a small amount of gait instability due to cerebral palsy but is not different than normal. He is not on any anticoagulation. He is not intoxicated or using any He pretty much feels back to his normal now. chemicals. Despite his med list as listed, he is not taking Ativan right now. He is on Zanaflex. Past medical history of possible cerebral palsy, arthritis, lower back pain. Meds are tizanidine and meloxicam. Allergy to latex and tape Denying prior back surgery [facility] Medical History Cerebral palsy Herniated lumbar disc without myelopathy Home Medications amitriptyline 10 - 20 mg PO QHS 10/26/20 [History Last Taken Unknown] meloxicam 15 mg PO DAILY PRN 10/26/20 [History Last Taken Unknown] tizanidine 4 mg PO Q8H PRN 10/26/20 [History Last Taken Unknown] lorazepam [Ativan] 0.5 mg PO BID PRN #6 tab 10/27/20 [Rx Last Taken Unknown] tizanidine [Zanaflex] 4 mg PO Q8H PRN #20 cap 01/02/21 [Rx Last Taken Unknown] Allergy/AdvReac Type Severity Reaction Status Date / Time latex Allergy Hives Verified 01/15/21 21:37 TAPE AdvReac Rash Uncoded 01/15/21 21:37 Social History Smoking Status: Never smoker alcohol intake: never substance use type: does not use ROS ROS ED Constitutional Constitutional ED: Denies chills or fever(s) Eyes Eyes: Denies blurry vision or change in vision ENT ENT ED: Denies rhinorrhea Cardiovascular Cardiovascular: Denies chest pain Respiratory/Chest Respiratory/Chest: Denies cough or dyspnea Gastrointestinal Gastrointestinal: Denies nausea or vomiting Genitourinary Genitourinary ED: Denies hematuria Musculoskeletal Musculoskeletal: Reports back pain and other Details: Patient has mild soreness of his lower back but is not different or changed after his fall. This is been an ongoing issue for him. Integumentary Reports Abrasions; Denies rash Neurologic Neurologic: Denies headache(s), paresthesias or weakness Hematologic/Lymphatic Hematologic/Lymphatic: Denies easy bleeding or easy bruising EXAM Physical Exam Const Vital Signs: 01/15/21 21:36 Temperature 97.7 F L Temperature Source Temporal Pulse Rate 108 H Respiratory Rate 18 Blood Pressure 161/97 H Blood Pressure Mean 118 Pulse Ox 96 Oxygen Delivery Method Room Air Positive well nourished General Appearance ED: NAD HEENT HEENT Narrative: I see no abrasions or contusions anywhere on the scalp or face. Negative for atraumatic, trauma or tenderness Eyes PERRL and EOMs intact bilaterally Neck full ROM Neck Narrative: No pain with range of motion. General: Negative for tenderness Resp normal respiratory effort and clear to auscultation bilaterally Cardio regular rhythm Rate: regular rate GI normal to inspection, nondistended, normoactive bowel sounds Back/Spine normal to inspection and no thoracic nor lumbar tenderness Thoracic Spine / Upper Back: Negative for thoracic spinal tenderness Extremity full ROM Extremity Narrative: Patient has very slight abrasions to the dorsum of his right hand. There is no swelling. No bony tenderness. No pain with range of motion. No wrist tenderness or snuffbox tenderness. General Extremety ED: Negative for tenderness Neuro oriented x3 and moves all extremities Neuro Narrative: Patient does have a slightly altered gait due to his cerebral palsy. However he states this is normal for him and he feels his gait and balance are normal. He is very independently mobile. Sensorium / Orientation: alert Sensory Exam: other Motor Exam: strength 5/5 throughout Psych mental status grossly normal Skin Skin Narrative: Abrasion to right hand dorsally. Trauma: abrasion MDM MDM MDM Narrative Medical decision making narrative: Patient is not intoxicated. He is not on anticoagulation. He has no signs of head injury clinically. He did not lose consciousness. He feels back to his baseline. He has had no nausea or vomiting. I do not think a CAT scan is required. I will give him reasons to return. We will give him instructions about concussion and we did talk about this. We talked about reasons to return. Discharge Plan Triage Chief Complaint: Head Injury ED Provider: Boris Beckford Dx/Rx/DC Orders Clinical Impression: Closed head injury Instructions: ED Concussion, ED Head Injury (Adult) Prescriptions: No Action meloxicam 15 mg Tablet 15 mg PO DAILY PRN (Reason: Pain) RF: 0 amitriptyline 10 mg Tablet 10 - 20 mg PO QHS RF: 0 tizanidine 2 MG tablet 4 mg PO Q8H PRN (Reason: Pain/Inflammation) RF: 0 lorazepam [Ativan] 0.5 mg tablet 0.5 mg PO BID PRN (Reason: anxiety) Qty: 6 RF: 0 tizanidine [Zanaflex] 4 mg capsule 4 mg PO Q8H PRN (Reason: muscle spasticity) Qty: 20 RF: 0 Primary Care Provider: Adam Paiz Referrals: Adam Paiz MD [Primary Care Provider] - 3-5 Days if not improving Disposition Disposition: Home, Self Care
[2021-01-15 22:20] VITALS: BP 161/97; PULSE 108; RESP 18; TEMP 36.5; O2SAT 96
== END 2021-01-15 22:31 | disposition home or self-care (01) ==
LOC: ED 22:22
PROVIDERS: Emergency Provider Emergency Medicine; PCP Family Medicine
DX: S09.90XA Unspecified injury of head, initial encounter (principal); S60.511A Abrasion of right hand, initial encounter; W01.10XA Fall on same level from slipping, tripping and stumbling with subsequent striking against unspecified object, initial encounter; Y93.79 Activity, other specified sports and athletics; Y92.9 Unspecified place or not applicable; Y99.9 Unspecified external cause status; G80.9 Cerebral palsy, unspecified; M51.26 Other intervertebral disc displacement, lumbar region; R26.89 Other abnormalities of gait and mobility
CPT/HCPCS: 99282

== ENCOUNTER 2021-01-29 23:03 | Emergency (ER) | payer MEDICAID, SELFPAY ==
[2021-01-29 23:04] VITALS: BP 103/78; PULSE 93; RESP 16; TEMP 36.6; O2SAT 96; BMI 18.2
--- NOTE | 2021-01-29 23:33 | EX.ED.UPPERE ---
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 [facility] Medical History Cerebral palsy Herniated lumbar disc without myelopathy Home Medications amitriptyline 10 - 20 mg PO QHS 10/26/20 [History Last Taken Unknown] meloxicam 15 mg PO DAILY PRN 10/26/20 [History Last Taken Unknown] tizanidine 4 mg PO Q8H PRN 10/26/20 [History Last Taken Unknown] Allergy/AdvReac Type Severity Reaction Status Date / Time latex Allergy Hives Verified 01/29/21 23:04 TAPE AdvReac Rash Uncoded 01/29/21 23:04 Social History Smoking Status: Never smoker alcohol intake: never substance use type: does not use ROS ROS ED Constitutional Constitutional ED: Denies chills or fever(s) Musculoskeletal Musculoskeletal: Reports extremity pain; Denies neck pain Integumentary Denies Abrasions, rash or wounds Neurologic Neurologic: Denies paresthesias or weakness EXAM Physical Exam Const Vital Signs: 01/29/21 23:04 Temperature 97.8 F Temperature Source Temporal Pulse Rate 93 Respiratory Rate 16 Blood Pressure 103/78 Blood Pressure Mean 86 Pulse Ox 96 Oxygen Delivery Method Room Air Positive well nourished and well developed General Appearance ED: well developed and NAD Neck full ROM and supple Back/Spine normal ROM and normal to inspection Extremity normal to inspection and full ROM Extremity Narrative: Patient has pain and tenderness at the right coracoid process. Negative Yergason without tenderness at the biceps tendon. He does have some pain with subscapularis movement. Negative Speed test. Negative drop sign with abduction is good. Neuro oriented x3, no focal motor deficits and no sensory deficits noted Sensorium / Orientation: alert Psych mental status grossly normal and thought process normal Skin no wounds Rashes: no rashes MDM MDM MDM Narrative Medical decision making narrative: My interpretation 4 view x-ray of the right shoulder are normal including the coracoid process. Patient was given stretches to do, I think he can do whatever he can tolerate at this time, anti-inflammatories, he was given a dose prior to discharge he is comfortable with that plan. Discharge Plan Triage Chief Complaint: Upper Extremity Injury ED Provider: Kristian Lagos Dx/Rx/DC Orders Clinical Impression: Contusion of right shoulder Instructions: ED Shoulder Contusion Prescriptions: No Action meloxicam 15 mg Tablet 15 mg PO DAILY PRN (Reason: Pain) RF: 0 amitriptyline 10 mg Tablet 10 - 20 mg PO QHS RF: 0 tizanidine 2 MG tablet 4 mg PO Q8H PRN (Reason: Pain/Inflammation) RF: 0 Primary Care Provider: Adam Paiz Referrals: Adam Paiz MD [Primary Care Provider] - 1 Week if not improving Activity Restrictions/Additional Instructions: Ibuprofen or Aleve as needed for pain. May also use topical treatments [id number]. Able to do whatever you are able to tolerate for now. Disposition Disposition: Home, Self Care
--- NOTE | 2021-01-29 23:44 | RAD_ITS ---
STUDY: X-RAY - RIGHT SHOULDER REASON FOR EXAM: Male, 20 years old. injury TECHNIQUE: 3 view(s) of the shoulder. COMPARISON: None. FINDINGS: Normal glenohumeral articulation. Normal acromioclavicular joint. Normal acromion. Old healed fracture of the middle part of the right clavicle. Normal humeral head and visualized proximal humerus. The soft tissue structures are unremarkable. Normal visualized pulmonary apex. RAD/Shoulder min 2 Views IMPRESSION: Old healed fracture of the middle part of the right clavicle. Electronically Signed: Lázaro Larose MD at 1:00 EDT Tel , Service support ,
[2021-01-30] MEDS: Naproxen 250 MG Tablet 500 MG PO (00:53)
[2021-01-30 00:57] VITALS: BP 103/78; PULSE 90; RESP 16; O2SAT 96
== END 2021-01-30 00:57 | disposition home or self-care (01) ==
LOC: ED 01-30 00:19
PROVIDERS: Emergency Provider Emergency Medicine; PCP Family Medicine
DX: S40.011A Contusion of right shoulder, initial encounter (principal); W22.8XXA Striking against or struck by other objects, initial encounter; Y93.61 Activity, american tackle football; Y92.9 Unspecified place or not applicable; Y99.9 Unspecified external cause status; G80.9 Cerebral palsy, unspecified; M51.26 Other intervertebral disc displacement, lumbar region; Z79.899 Other long term (current) drug therapy
CPT/HCPCS: 73030; 99283

== ENCOUNTER 2021-04-20 22:53 | Emergency (ER) | payer MEDICAID, SELFPAY ==
[2021-04-20 22:54] VITALS: BP 137/92; PULSE 107; RESP 16; TEMP 36.7; O2SAT 98; BMI 18.1
--- NOTE | 2021-04-20 23:29 | EDS_ITS ---
HPI History of Present Illness Chief Complaint: Nausea/Vomiting Informant: patient Narrative Narrative: Patient presents with nausea and vomiting and concern for Covid. Symptoms started about 3 days ago. He has had some myalgias sore throat and runny nose. The sore throat is improving. He was seen in urgent care yesterday. It sounds like he was given something similar to Robitussin. He came in tonight because he then developed some vomiting today. He has vomited twice. He has no abdominal pain. Stools might be slightly soft but no diarrhea. No blood in the vomitus or stool. Not having fevers or chills. 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 Past medical history cerebral palsy Current medications are only the medicines from an urgent care visit yesterday which he thinks is like Robitussin. Allergy to latex and tape No recent surgery Does work full-time, lives with grandmother. [facility] Medical History Cerebral palsy Herniated lumbar disc without myelopathy Home Medications amitriptyline 10 - 20 mg PO QHS 10/26/20 [History Last Taken Unknown] meloxicam 15 mg PO DAILY PRN 10/26/20 [History Last Taken Unknown] tizanidine 4 mg PO Q8H PRN 10/26/20 [History Last Taken Unknown] ondansetron 4 mg PO Q8H PRN #10 tab 04/21/21 [Rx Last Taken Unknown] Allergy/AdvReac Type Severity Reaction Status Date / Time latex Allergy Hives Verified 04/20/21 22:54 TAPE AdvReac Rash Uncoded 04/20/21 22:54 Social History Smoking Status: Unknown if ever smoked alcohol intake: never substance use type: does not use ROS ROS ED Constitutional Constitutional ED: Denies chills, fever(s) or subjective Eyes Eyes: Denies blurry vision ENT ENT ED: Reports rhinorrhea and sore throat; Denies ear pain Cardiovascular Cardiovascular: Denies chest pain Respiratory/Chest Respiratory/Chest: Denies cough, dyspnea or sputum Gastrointestinal Gastrointestinal: Reports nausea, vomiting and other Details: See history of present illness ; Denies abdominal pain, constipation or melena Genitourinary Genitourinary ED: Denies dysuria Musculoskeletal Musculoskeletal: Reports myalgias Integumentary Denies rash Neurologic Neurologic: Denies headache(s) or weakness Psychiatric Psychiatric: Denies anxiety or depression Endocrine Endocrinology: Denies polydipsia or polyuria Allergic/Immunologic Allergic/Immunologic ED: Denies urticaria EXAM Physical Exam Const Vital Signs: 04/20/21 22:54 Temperature 98.0 F Temperature Source Temporal Pulse Rate 107 H Respiratory Rate 16 Blood Pressure 137/92 H Blood Pressure Mean 107 Pulse Ox 98 Oxygen Delivery Method Room Air Positive well nourished and well developed General Appearance ED: well developed and NAD; Negative for cyanotic or diaphoretic HEENT Reports moist mucous membranes HEENT Narrative: Minimal posterior pharyngeal erythema without exudate. No asymmetry or swelling. Eyes General Eye ED: Negative for pale conjunctiva or scleral icterus Neck no lymphadenopathy, supple and no JVD Chest Wall inspection of chest normal Resp normal respiratory effort and clear to auscultation bilaterally Auscultation: Negative for rales, rhonchi or wheezes Cardio regular rate GI normal to inspection, nondistended, normoactive bowel sounds, non-tender and non-distended Palpation: soft Back/Spine no CVA tenderness Extremity normal to inspection General Extremety ED: Negative for tenderness Neuro Sensorium / Orientation: alert Psych mental status grossly normal Skin no rashes or lesions noted and no wounds MDM MDM MDM Narrative Medical decision making narrative: Patient is feeling better. Nausea is gone. He can tolerate fluid. He requested note to give him a day off work so he can rest. I think this is reasonable. His Covid is negative. We discussed reasons to return. I will write for some Zofran. Discharge Plan Triage Chief Complaint: Nausea/Vomiting ED Provider: Boris Beckford Dx/Rx/DC Orders Clinical Impression: Nausea & vomiting Instructions: ED Vomiting (Adult) Prescriptions: New ondansetron 4 mg tablet,disintegrating 4 mg PO Q8H PRN (Reason: nausea and vomiting) Qty: 10 RF: 0 No Action meloxicam 15 mg Tablet 15 mg PO DAILY PRN (Reason: Pain) RF: 0 amitriptyline 10 mg Tablet 10 - 20 mg PO QHS RF: 0 tizanidine 2 MG tablet 4 mg PO Q8H PRN (Reason: Pain/Inflammation) RF: 0 Stand Alone Forms: ED Work / School Excuse Primary Care Provider: Adam Paiz Referrals: Adam Paiz MD [Primary Care Provider] - 3-5 Days if not improving Disposition Disposition: Home, Self Care
[2021-04-20] MEDS: Ondansetron ODT 4 MG Tablet PO (23:36)
== END 2021-04-21 00:32 | disposition home or self-care (01) ==
PROVIDERS: Emergency Provider Emergency Medicine; PCP Family Medicine
DX: R11.2 Nausea with vomiting, unspecified (principal); Z20.822 Contact with and (suspected) exposure to COVID-19; G80.9 Cerebral palsy, unspecified; M51.26 Other intervertebral disc displacement, lumbar region; J02.9 Acute pharyngitis, unspecified; M79.10 Myalgia, unspecified site; R09.89 Other specified symptoms and signs involving the circulatory and respiratory systems; Z79.899 Other long term (current) drug therapy
CPT/HCPCS: 87426; 99283

== ENCOUNTER 2021-05-06 21:33 | Emergency (ER) | payer MEDICAID, SELFPAY ==
[2021-05-06 21:34] VITALS: BP 147/79; PULSE 82; RESP 16; TEMP 36.1; O2SAT 98; BMI 19.1
[2021-05-06] MEDS: Ibuprofen 600 MG Tablet PO (21:59)
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
== END 2021-05-06 22:01 | disposition home or self-care (01) ==
LOC: ED 21:49
PROVIDERS: Emergency Provider Student in an Organized Health Care Education/Training Program; PCP Family Medicine
DX: S00.83XA Contusion of other part of head, initial encounter (principal); Y04.2XXA Assault by strike against or bumped into by another person, initial encounter; Y93.9 Activity, unspecified; Y92.9 Unspecified place or not applicable; Y99.9 Unspecified external cause status; G80.9 Cerebral palsy, unspecified; M51.26 Other intervertebral disc displacement, lumbar region; Z79.899 Other long term (current) drug therapy
CPT/HCPCS: 99282

== ENCOUNTER 2021-05-19 15:26 | Emergency (ER) | payer MEDICAID, SELFPAY ==
[2021-05-19 15:27] VITALS: BP 127/72; PULSE 78; RESP 16; TEMP 35.7; O2SAT 97; BMI 19.3
== END 2021-05-19 16:34 | disposition left against medical advice (07) ==
LOC: ED 16:33
PROVIDERS: PCP Family Medicine
DX: S09.90XA Unspecified injury of head, initial encounter (principal); X58.XXXA Exposure to other specified factors, initial encounter; Y93.9 Activity, unspecified; Y92.9 Unspecified place or not applicable; Y99.9 Unspecified external cause status; Z53.21 Procedure and treatment not carried out due to patient leaving prior to being seen by health care provider

== ENCOUNTER 2021-05-19 22:06 | Emergency (ER) | payer MEDICAID, SELFPAY ==
[2021-05-19 22:07] VITALS: BP 142/77; PULSE 107; RESP 18; TEMP 36.1; O2SAT 97; BMI 18.2
--- NOTE | 2021-05-19 23:27 | ED.RN ---
PT STATES HE IS GOING TO GO TO [place]. STATES THEY SAID THEY DO NOT HAVE MUCH OF A WAIT.
== END 2021-05-19 23:35 | disposition left against medical advice (07) ==
LOC: ED 23:38
PROVIDERS: PCP Family Medicine
DX: S09.90XA Unspecified injury of head, initial encounter (principal); X58.XXXA Exposure to other specified factors, initial encounter; Y93.9 Activity, unspecified; Y92.9 Unspecified place or not applicable; Y99.9 Unspecified external cause status; Z53.21 Procedure and treatment not carried out due to patient leaving prior to being seen by health care provider

== ENCOUNTER 2021-08-16 01:12 | Emergency (ER) | payer MEDICAID, SELFPAY ==
[2021-08-16 01:13] VITALS: BP 137/75; PULSE 65; RESP 18; TEMP 36.3; O2SAT 100; BMI 18.6
[2021-08-16 01:33] VITALS: BP 141/98; PULSE 86; RESP 19; O2SAT 92
--- NOTE | 2021-08-16 01:39 | EDS_ITS ---
HPI History of Present Illness Chief Complaint: Back Narrative Narrative: 20-year-old male presenting with back pain. This is chronic in nature. It sporadically causes spasm into his lower extremities and is occluding his gluteals and hamstrings. Patient states that this has been ongoi ng for couple of days and he tried taking Tylenol and ibuprofen and waited 2 hours prior to arrival and did not any relief. Previously he was on Zanaflex and states that this helped him. He states his last time he saw his specialist was about 6 months ago and describes what is possibly nerve ablation versus spinal injection. He is not sure. He states it is Classified as a surgery. Patient has no loss of bladder or bowel control. No saddle anesthesia. Patient denies any direct trauma. He feels otherwise healthy. [facility] Medical History Cerebral palsy Herniated lumbar disc without myelopathy Home Medications tizanidine [Zanaflex] 4 mg PO Q8H PRN #20 cap 08/16/21 [Rx Last Taken Unknown] Allergy/AdvReac Type Severity Reaction Status Date / Time latex Allergy Hives Verified 08/16/21 01:20 TAPE AdvReac Rash Uncoded 08/16/21 01:20 Social History Smoking Status: Never smoker alcohol intake: never substance use type: does not use ROS ROS ED Constitutional Constitutional ED: Denies chills or fever(s) Eyes Eyes: Denies blurry vision or diplopia ENT ENT ED: Denies rhinorrhea or sore throat Cardiovascular Cardiovascular: Denies chest pain or palpitations Respiratory/Chest Respiratory/Chest: Denies dyspnea or sputum Gastrointestinal Gastrointestinal: Denies abdominal pain, nausea or vomiting Genitourinary Genitourinary ED: Denies dysuria or hematuria Musculoskeletal Musculoskeletal: Reports back pain Integumentary Denies abscess or rash Neurologic Neurologic: Denies paresthesias or weakness EXAM Physical Exam Const Vital Signs: 08/16/21 01:13 08/16/21 01:33 Temperature 97.3 F L Temperature Source Temporal Pulse Rate 65 86 Respiratory Rate 18 19 H Blood Pressure 137/75 H 141/98 H Blood Pressure Mean 95 112 Pulse Ox 100 92 Oxygen Delivery Method Room Air Room Air Positive well nourished General Appearance ED: NAD HEENT Reports moist mucous membranes Negative for trauma Eyes PERRL and EOMs intact bilaterally Resp normal respiratory effort and clear to auscultation bilaterally Cardio regular rate and regular rhythm Back/Spine Lumbar Spine / Lower Back: paraspinal muscle tenderness bilateral Neuro oriented x3 and no sensory deficits noted Sensorium / Orientation: alert Motor Exam: strength 5/5 throughout Psych mental status grossly normal Skin no rashes or lesions noted MDM MDM MDM Narrative Medical decision making narrative: Patient with acute exacerbation of chronic back pain. He states that Zanaflex typically helps for him however he is out of this. He states that he previously had some kind of spinal injection versus nerve ablation about 6 months ago and his and his specialist retired. He was given 3 months of medication but did not find to follow-up in this timeframe. He states he was not referred to anybody. Patient was treated with Norflex in the ED. He states he has a ride home. Patient will given a prescription for Zanaflex. No signs or symptoms of cauda equina syndrome. He is discharged home in stable condition. Impression: 1. Acute on chronic back pain Lab Data Attestation: I reviewed the patient's lab results. Discharge Plan Triage Chief Complaint: Back ED Provider: Cr Tierney Dx/Rx/DC Orders Instructions: ED Back Spasm, No Trauma Prescriptions: New tizanidine [Zanaflex] 4 mg capsule 4 mg PO Q8H PRN (Reason: muscle spasticity) Qty: 20 RF: 0 Primary Care Provider: Adam Paiz Referrals: Adam Paiz MD [Primary Care Provider] - Disposition Disposition: Home, Self Care
[2021-08-16] MEDS: Orphenadrine 60 MG/2 ML Ampul IM (01:41)
[2021-08-16 03:06] VITALS: BP 124/72; PULSE 67; RESP 18; O2SAT 97
== END 2021-08-16 03:09 | disposition home or self-care (01) ==
LOC: ED 01:48
PROVIDERS: Emergency Provider Student in an Organized Health Care Education/Training Program; PCP Family Medicine; Visit Provider Student in an Organized Health Care Education/Training Program
DX: M54.9 Dorsalgia, unspecified (principal); G80.9 Cerebral palsy, unspecified; G89.29 Other chronic pain; M51.26 Other intervertebral disc displacement, lumbar region
CPT/HCPCS: 96372; 99282

== ENCOUNTER 2021-10-26 21:06 | Emergency (ER) | payer MEDICAID, SELFPAY ==
[2021-10-26 21:06] VITALS: BP 140/81; PULSE 85; RESP 18; TEMP 35.9; O2SAT 97; BMI 19.1
--- NOTE | 2021-10-26 22:07 | RAD_ITS ---
STUDY: X-RAY CHEST REASON FOR EXAM: Male, 21 years old. Cough TECHNIQUE: Portable, upright, AP chest radiograph COMPARISON: 09/16/2020 FINDINGS: The lungs are clear and expanded. There is no demonstrated pleural abnormality. Normal size heart. Normal mediastinum and zeynep. Normal visualized pulmonary arteries. Normal visualized aortic arch and descending thoracic aorta. There is no demonstrated abnormality of the visualized soft tissue structures of the upper abdomen. RAD/Chest 1 View IMPRESSION: No acute abnormal cardiopulmonary finding. Electronically Signed: Fareed Catherine MD at 22:27 EDT ,
--- NOTE | 2021-10-26 22:55 | EX.ED.DYSGE1 ---
HPI History of Present Illness Chief Complaint: Shortness of Breath Informant: patient Narrative Narrative: Patient presents mostly with myalgias for about 4 5 days. He states he kind of aches all over her arms legs. He is eating and drinking but his appetite is a little bit down. No nausea vomiting or diarrhea. He denies any dyspnea to me even though the triage note mentioned it. His girlfriend states that she thinks he is short of breath but he states he is not. He states if he sneezes his whole body hurts but he is not short of breath. He does not know if he has had COVID or been around anyone with it. [facility] Medical History Cerebral palsy Herniated lumbar disc without myelopathy Home Medications tizanidine [Zanaflex] 4 mg PO Q8H PRN #20 cap 08/16/21 [Rx Last Taken Unknown] Allergy/AdvReac Type Severity Reaction Status Date / Time latex Allergy Hives Verified 10/26/21 21:07 TAPE AdvReac Rash Uncoded 10/26/21 21:07 Social History Smoking Status: Never smoker alcohol intake: never substance use type: does not use ROS ROS ED Constitutional Constitutional ED: Reports subjective Eyes Eyes: Denies blurry vision or change in vision ENT ENT ED: Reports rhinorrhea; Denies sore throat Cardiovascular Cardiovascular: Denies chest pain or palpitations Respiratory/Chest Respiratory/Chest: Reports cough; Denies dyspnea or sputum Gastrointestinal Gastrointestinal: Denies abdominal pain, diarrhea, nausea or vomiting Genitourinary Genitourinary ED: Denies dysuria Musculoskeletal Musculoskeletal: Reports arthralgias and myalgias Integumentary Denies rash Neurologic Neurologic: Denies headache(s) Psychiatric Psychiatric: Denies anxiety or depression Endocrine Endocrinology: Denies polydipsia or polyuria Allergic/Immunologic Allergic/Immunologic ED: Denies urticaria EXAM Physical Exam Const Vital Signs: 10/26/21 21:06 Temperature 96.7 F L Temperature Source Temporal Pulse Rate 85 Respiratory Rate 18 Blood Pressure 140/81 H Blood Pressure Mean 100 Pulse Ox 97 Oxygen Delivery Method Room Air Positive well nourished and well developed General Appearance ED: well developed and NAD; Negative for cyanotic or diaphoretic HEENT Reports moist mucous membranes Negative for trauma or tenderness Eyes PERRL and EOMs intact bilaterally General Eye ED: Negative for pale conjunctiva or scleral icterus Neck no lymphadenopathy and no JVD Neck Narrative: No meningismus. Chest Wall inspection of chest normal Resp normal respiratory effort and clear to auscultation bilaterally Effort and Inspection: Negative for pain with movement Auscultation: Negative for rales, rhonchi or wheezes Cardio regular rate GI normal to inspection, nondistended, normoactive bowel sounds and non-tender Palpation: soft Back/Spine no CVA tenderness Extremity normal to inspection Extremity Narrative: Patient has mild nonfocal soreness with palpation but no real tenderness. No swelling. No joints are swollen. No rashes noted Neuro oriented x3 Sensorium / Orientation: alert Psych mental status grossly normal Skin no rashes or lesions noted MDM MDM MDM Narrative Medical decision making narrative: Chest x-ray shows no acute process. Patient's negative for COVID and influenza. Patient still has symptoms of some nasal congestion, subjective fevers and diffuse myalgias. He has not had dark urine by history. There is no swelling. No indication for rhabdo. He also has sore joints. His abdomen is benign. He is eating and drinking. He has no urinary symptoms. I think the patient can go home he likely has a viral syndrome. Radiography Diagnostic Testing: Clinical Impression(s) from Imaging Studies Chest X-Ray 10/26/21 22:07 IMPRESSION: No acute abnormal cardiopulmonary finding. Electronically Signed: Fareed Catherine MD at 22:27 EDT Reading Location ID and State: [facility] / [place] Tel , Service support , Discharge Plan Triage Chief Complaint: Shortness of Breath ED Provider: Boris Beckford Dx/Rx/DC Orders Clinical Impression: Acute viral syndrome, Myalgia, Arthralgia Instructions: ED Viral Syndrome (Adult) Prescriptions: No Action tizanidine [Zanaflex] 4 mg capsule 4 mg PO Q8H PRN (Reason: muscle spasticity) Qty: 20 RF: 0 Primary Care Provider: Adam Paiz Referrals: Adam Paiz MD [Primary Care Provider] - 3-5 Days Disposition Disposition: Home, Self Care
[2021-10-26 23:13] VITALS: PULSE 76; RESP 16; O2SAT 99
== END 2021-10-26 23:15 | disposition home or self-care (01) ==
PROVIDERS: Emergency Provider Emergency Medicine; PCP Family Medicine; Visit Provider Emergency Medicine
DX: B34.9 Viral infection, unspecified (principal); Z20.822 Contact with and (suspected) exposure to COVID-19; R09.81 Nasal congestion; M79.10 Myalgia, unspecified site; M25.50 Pain in unspecified joint; G80.9 Cerebral palsy, unspecified
CPT/HCPCS: 71045; 87428; 99282

== ENCOUNTER 2021-11-17 16:53 | Outpatient (RCR) | payer MEDICAID, SELFPAY ==
--- NOTE | 2021-11-17 17:47 | HP.PTEVAL_ITS ---
Patient's Visit Information BRITNEY WEBBER is a 21 year old M referred to Physical Therapy by MINGO Garcia with a diagnosis of CP with L spasticity casuing knee pain. Date of Evaluation: 11/17/21 Physical Therapist: Aleksandr Conway, DPT, OCS, CSCS - Visit Plan Frequency: 3x /Week Duration: 4-6 Weeks Plan: 2-3x/week for 4-6 weeks for. 1. rollout of L quad and stretching L quad and ITB and HS and progress to HEP. 2. strength L hip and LE and progress to I. - Subjective L knee bucklinig and going out on him. Last 5 months has happened and worse the last two months. 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 L knee hurts if he plays sports or on stairs. It is fine sitting. Pain is a tightness when he moves it. Pain is lateral at the knee patella and 3/10, lingers a little while and then gone. Man snot keep him up at night. Does not keep him from doing much uinless it gives out a few times then he has to stay off it. Has knee brace that he just got today and has not tried it yet. 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 Will be on feet alot 6am to 6 pm. Plays basketball and football with the boys. Will do wheelchair rugby soon. has CP but gets around fairly well. - Pain L knee Pain Intensity (Out of 10): 0 Pain Intensity Range: 0, 4 - Objective Walks on forefeet with CP spastic gait pattern, knees bent and femurs adducted B...but good balance and I in transfers and gait. Steps are reciprocal up wihtout rail anbd descends with rail reeciprocal, weaker on L knee and slightly painful. Full aROM B knees without pain. Obvoious tightness in B quads , ITB and HS at -45 90/90 test B. reflexes 2/3 patella and achilles. Strength is L hip abd and ext 3 and 4- on R, flexion hip 4-L and 4 R. quad 4- B, HS 4- B. - bounce home, - disco, - patellar grind, has tenderness under knee cap L medial and lateral and obvious patella nicole L > R. needs education on donning and doffing patellar stab brace today but can do it I. - Goals Goal 1:: Pt I in appropriate stretching and strengthening to minimize pain Goal Time Frame: 4-6 Weeks Goal 2:: Pain 0-1/10 at all times. Goal Time Frame: 4-6 Weeks Goal 3:: Patient climb steps without pain in knee Goal Time Frame: 4-6 Weeks Goal 4:: Pt tolerate new job with only 1/10 pain or less. Goal Time Frame: 4-6 Weeks - Rehabilitation Potential Physical Therapy Diagnosis: L knee pain from spasticity and weakness and PFS. Rehabilitation Potential: Fair - Anticipated Interventions Patient/Client Instruction: Educate patient on: Condition, Plan of Care For the Purpose of:: To decrease pain, To improve muscle performance and motor function, To increase tolerance to activity/condition/position Therapeutic Exercise to Include: Strength training, Flexibilty training For the Purpose of:: To decrease pain, To improve muscle performance and motor function, To increase tolerance to activity/condition/position Thank you for the opportunity to evaluate your patient. For Medicare and Medicare HMO plans, please review the plan of care and approve it. It will need to be FAXED BACK to us at [phone] for Medicare purposes. For Medicare only, by signing this I certify the plan of care. Please let me know if there are questions or concerns regarding this plan of care. Physician Signature: Date:
--- NOTE | 2022-01-13 07:50 | HP.PT.NRP ---
BRITNEY WEBBER was seen in my office for initial evaluation on 11/17/21. The following Plan of Care was established for this patient: Initial Frequency: 3x /Week Initial Duration: 4-6 Weeks Patient/Client Instruction: Educate patient on: Condition, Plan of Care For the Purpose of:: To decrease pain, To improve muscle performance and motor function, To increase tolerance to activity/condition/position Therapeutic Exercise to Include: Strength training, Flexibilty training For the Purpose of:: To decrease pain, To improve muscle performance and motor function, To increase tolerance to activity/condition/position This patient was last seen in our office 11/17/21. Pertinent comments regarding their Physical therapy will appear below: Pt seen for initial eval and POC established and approval received. Pt did not schedule or attend any visits. at this point, it has been over 6 weeks and i will discontinue from my care. At this point I will be discontinuing this patient from physical therapy. I would be happy to see this patient again in the future if found appropriate by the physician. Thank you! Aleksandr Conway, DPT, OCS, CSCS
== END 2021-11-17 19:00 | disposition home or self-care (01) ==
LOC: PT 16:53
PROVIDERS: PCP Family Medicine; Referring Provider Physician Assistant; Visit Provider Physician Assistant
DX: G80.9 Cerebral palsy, unspecified (principal); M25.562 Pain in left knee
CPT/HCPCS: 97161

== ENCOUNTER 2022-01-30 03:34 | Emergency (ER) | payer MEDICAID, SELFPAY ==
[2022-01-30 03:35] VITALS: BP 150/81; PULSE 74; RESP 16; TEMP 36.8; O2SAT 100; BMI 18.6
--- NOTE | 2022-01-30 03:41 | EDS_ITS ---
HPI HPI - GI History of Present Illness Chief Complaint: Abd Pain Informant: patient Abdominal Pain/Flank Pain Onset: Yesterday Context: Gradual Onset Timing: Continuous Quality: Cramping and Sharp Location: Diffuse (Across mid abdomen into back some) Current Severity: Moderate Maximum Severity: Moderate Worsened by: Nothing Relieved by: Nothing (Tried a muscle relaxer, no help) Nausea/Vomiting/Emesis GI Symptom: Positive for Nausea; Negative for Vomiting Diarrhea/Melena/Hematochezia GI Symptom: Positive for - (Normal bowel movements without changes); Negative for Diarrhea, Melena or Hematochezia Associated Symptoms Associated Symptoms: Negative for Dysuria, Frequency, Hematuria or Urgency Narrative Narrative: Patient states he has been had sharp nonlateralizing abdominal pains all day. It is made him have some anorexia and not want to eat, a little nausea from time to time but no vomiting. Normal bowel movements. Normal urination. No fevers or chills. No thoracic symptoms. He states it feels a little like it did just prior to getting appendicitis. He had his appendix out. He recently started a new job, lots of heavy lifting but has noticed no bulges or hernias. Denies any known injuries. [facility] Medical History (Updated 01/30/22 @ 05:[address] Kristian Lagos MD) Cerebral palsy Herniated lumbar disc without myelopathy Migraines Home Medications tizanidine 4 mg capsule (Zanaflex) 4 mg PO Q8H PRN muscle spasticity #20 caps 08/16/21 [Rx Last Taken Unknown] acetaminophen 500 mg tablet (Tylenol Extra Strength) 500 mg PO Q6H PRN muscle relaxer 11/11/21 [History Last Taken Unknown] dicyclomine 10 mg capsule 20 mg PO Q6H PRN PRN abdominal discomfort #20 CAPSULES 01/30/22 [Rx Last Taken Unknown] Allergy/AdvReac Type Severity Reaction Status Date / Time latex Allergy Hives Verified 11/11/21 08:38 TAPE AdvReac Rash Uncoded 11/11/21 08:38 Surgical History (Updated 01/30/22 @ 03:44 by Dee Krause) History of appendectomy Social History Smoking Status: Never smoker alcohol intake: never substance use type: does not use ROS ROS ED Constitutional Constitutional ED: Denies chills or fever(s) Eyes Eyes: Denies change in vision or diplopia ENT ENT ED: Denies rhinorrhea or sore throat Cardiovascular Cardiovascular: Denies chest pain or palpitations Respiratory/Chest Respiratory/Chest: Denies cough or dyspnea Gastrointestinal Gastrointestinal: Reports abdominal pain and nausea; Denies diarrhea or vomiting Genitourinary Genitourinary ED: Denies dysuria or hematuria Musculoskeletal Musculoskeletal: Reports back pain; Denies neck pain Integumentary Denies abscess or rash Neurologic Neurologic: Denies headache(s), paresthesias or weakness Psychiatric Psychiatric: Denies anxiety or suicidal thoughts EXAM Physical Exam Const Vital Signs: 01/30/22 03:35 Temperature 98.2 F Temperature Source Oral Pulse Rate 74 Respiratory Rate 16 Blood Pressure 150/81 H Blood Pressure Mean 104 Pulse Ox 100 Oxygen Delivery Method Room Air Positive well nourished and well developed General Appearance ED: well developed and NAD HEENT Reports moist mucous membranes normocephalic and atraumatic Eyes PERRL and EOMs intact bilaterally Neck full ROM and supple Resp normal respiratory effort and clear to auscultation bilaterally Cardio regular rate, regular rhythm and no murmurs GI non-tender and non-distended GI Narrative: Very benign abdomen without clinically significant tenderness. No rebound or guarding. Normal bowel sounds no masses. Auscultation: normoactive bowel sounds Palpation: soft Back/Spine no CVA tenderness General Back: other FROM Extremity normal to inspection General Extremety ED: Negative for edema, pulses abnormal or tenderness General Extremity: Negative for edema or pulses abnormal Neuro oriented x3, CN's II-XII intact bilaterally and moves all extremities Sensorium / Orientation: awake and alert Psych mental status grossly normal and thought process normal Skin no rashes or lesions noted and no wounds MDM MDM MDM Narrative Medical decision making narrative: Patient has a very benign abdomen, and it sounds like he is having intestinal pain which could be from any functional etiologies, he suggest that he has had this before, just more prominent and persistent today. Therefore I do not think he needs an emergent work-up. I offered him medications he was amenable to that. I ordered Zofran, GI cocktail, oral Protonix, IM dicyclomine and Toradol. Nursing gave him all the oral medications at 1 time and he vomited them up so we waited and retreated him without even receiving the GI cocktail again, and he is feeling much better, texting on his cell phone, and stable for discharge. Given a prescription for oral dicyclomine to use as needed. Discharge Plan Triage Chief Complaint: Abd Pain ED Provider: Kristian Lagos Dx/Rx/DC Orders Clinical Impression: Diffuse abdominal pain Instructions: Abdominal Pain Prescriptions: New dicyclomine 10 mg capsule 20 mg PO Q6H PRN PRN (Reason: abdominal discomfort) Qty: 20 0RF No Action acetaminophen [Tylenol Extra Strength] 500 mg tablet 500 mg PO Q6H PRN (Reason: muscle relaxer) tizanidine [Zanaflex] 4 mg capsule 4 mg PO Q8H PRN (Reason: muscle spasticity) Qty: 20 0RF Primary Care Provider: Adam Paiz Referrals: Adam Paiz MD [Primary Care Provider] - 3-5 Days if not improving Activity Restrictions/Additional Instructions: If you get recurrent symptoms/episodes, try taking the prescription pill and you may also try adding Mylanta and/or simethicone-containing medications. Disposition Disposition: Home, Self Care
[2022-01-30] MEDS: Pantoprazole Sodium 40 MG Tablet PO (03:50)
[2022-01-30] MEDS: Ketorolac 30 MG/ML Syringe IM (03:50)
[2022-01-30] MEDS: Dicyclomine 20 MG/2 ML Vial IM (03:50)
[2022-01-30] MEDS: Ondansetron ODT 4 MG Tablet 8 MG PO (03:50)
[2022-01-30 05:00] VITALS: BP 150/81; PULSE 74; RESP 16; O2SAT 100
== END 2022-01-30 05:18 | disposition home or self-care (01) ==
PROVIDERS: Emergency Provider Emergency Medicine; PCP Family Medicine; Visit Provider Emergency Medicine
DX: R10.84 Generalized abdominal pain (principal); G80.9 Cerebral palsy, unspecified; R63.0 Anorexia; R11.0 Nausea
CPT/HCPCS: 96372; 99283

== ENCOUNTER 2022-01-31 10:09 | Emergency (ER) | payer MEDICAID, SELFPAY ==
[2022-01-31 10:10] VITALS: BP 124/78; PULSE 65; RESP 18; TEMP 36.1; O2SAT 100; BMI 18.7
--- NOTE | 2022-01-31 10:21 | CT_ITS ---
STUDY: CT ABDOMEN AND PELVIS WITH CONTRAST REASON FOR EXAM: Male, 21 years old. MID ABDOMEN PAIN RADIATING TO BACK. PRIOR APPEDECTOMY RADIATION DOSAGE (If Supplied By Facility): CTDIvol = ( 10.50 ) mGy, DLP = ( 407.45 ) mGycm TECHNIQUE: Transaxial images were obtained from the dome of the diaphragm to the symphysis pubis with oral contrast. Oral and amp; IV Gastrografin and amp; 100mL Isovue-300 was administered. Sagittal and coronal images were reconstructed. Individualized dose optimization techniques were used for this CT. COMPARISON: Comparison is made with prior examination dated 03/20/2017. FINDINGS: The visualized lung bases are unremarkable. The visualized portions of the heart are within normal limits. Normal liver. Mild degree of gallbladder wall thickening. Small amount of pericholecystic fluid. I suspect gallstones within the gallbladder lumen. Normal spleen. Normal pancreas. Normal bilateral adrenal glands. Normal right kidney. Normal left kidney. Normal visualized stomach. Normal small intestine. Normal colon. The patient is status post appendectomy. Normal abdominal aorta. Normal inferior vena cava. Normal retroperitoneum. Normal urinary bladder. Normal abdominal wall. Normal osseous structures. CT/Abdomen/Pelvis WITH Contrast IMPRESSION: Mild degree of gallbladder wall thickening with pericholecystic fluid and questionable small gallstones. Correlation with ultrasound is recommended. Electronically Signed: Randal Coates MD at 13:02 EDT ,
--- NOTE | 2022-01-31 10:22 | EDS_ITS ---
HPI History of Present Illness Chief Complaint: Abd Pain Informant: patient Onset/Context/Timing Onset: Days (4 days) Context: Gradual Onset Timing: Waxes and wanes Current Severity: Moderate Maximum Severity: Moderate Narrative Narrative: Patient presents secondary to abdominal pain. He points around the mid abdomen is states it wraps around into his back. He has noted decreased urine output. No dysuria. He was seen in the emergency room early yesterday morning for the same. It was felt to be functional abdominal pain at that time and he was started on Bentyl. Patient states he is not getting any improvement with his pain medication. [facility] Medical History Cerebral palsy Herniated lumbar disc without myelopathy Migraines Home Medications tizanidine 4 mg capsule (Zanaflex) 4 mg PO Q8H PRN muscle spasticity #20 caps 08/16/21 [Rx Last Taken Unknown] naproxen 500 mg tablet (Naprosyn) 500 mg PO BID PRN pain #20 tabs 01/31/22 [Rx Last Taken Unknown] omeprazole 20 mg capsule,delayed release 20 mg PO DAILY 4 weeks #28 caps 01/31/22 [Rx Last Taken Unknown] Allergy/AdvReac Type Severity Reaction Status Date / Time latex Allergy Hives Verified 01/31/22 10:11 adhesive tape AdvReac Rash Verified 01/31/22 10:23 Surgical History History of appendectomy Social History Smoking Status: Never smoker alcohol intake: never substance use type: does not use ROS ROS ED Constitutional Constitutional ED: Denies chills or fever(s) Eyes Eyes: Denies change in vision or discharge from eye(s) ENT ENT ED: Denies discharge from eye(s), rhinorrhea or sore throat Cardiovascular Cardiovascular: Denies chest pain or palpitations Respiratory/Chest Respiratory/Chest: Denies cough or dyspnea Gastrointestinal Gastrointestinal: Reports abdominal pain and nausea; Denies diarrhea or vomiting Genitourinary Genitourinary ED: Denies dysuria Musculoskeletal Musculoskeletal: Reports back pain; Denies extremity pain Integumentary Denies Abrasions or rash Neurologic Neurologic: Denies headache(s) or weakness Psychiatric Psychiatric: Denies anxiety or depression Allergic/Immunologic Allergic/Immunologic ED: Denies lip swelling or urticaria EXAM Physical Exam Const Vital Signs: 01/31/22 10:10 01/31/22 14:04 Temperature 97 F L Temperature Source Temporal Pulse Rate 65 54 L Respiratory Rate 18 16 Blood Pressure 124/78 H 136/65 H Blood Pressure Mean 93 88 Pulse Ox 100 98 Oxygen Delivery Method Room Air Room Air Positive well nourished and well developed General Appearance ED: well developed HEENT Reports normocephalic and head/scalp atraumatic Eyes PERRL and EOMs intact bilaterally Neck supple Chest Wall inspection of chest normal and palpation of chest normal Resp normal respiratory effort and clear to auscultation bilaterally Cardio regular rate and regular rhythm GI GI Narrative: Diffuse abdominal tenderness to palpation. No guarding or rebound. Hypoactive bowel sounds. Palpation: soft Extremity normal to inspection Neuro oriented x3 and no sensory deficits noted Sensorium / Orientation: alert Motor Exam: strength 5/5 throughout Psych mental status grossly normal Skin no rashes or lesions noted MDM MDM MDM Narrative Medical decision making narrative: Patient given Toradol, Zofran, IV fluids. Lab work obtained along with a CT scan. Lab Data Attestation: I reviewed the patient's lab results. Labs: Laboratory Results - last 24 hr 01/31/22 01/31/22 01/31/22 10:15 10:15 10:35 WBC 4.7 RBC 4.78 Hgb 14.7 Hct 44.4 MCV 92.9 MCH 30.8 MCHC 33.1 RDW Std Deviation 43.1 RDW Coeff of Kave[place] 12.5 Plt Count 173 MPV 11.5 Immature Gran % (Auto) 0.200 Neut % (Auto) 54.5 Lymph % (Auto) 38.5 [place] % (Auto) 6.2 Eos % (Auto) 0.0 Baso % (Auto) 0.6 Absolute Neuts (auto) 2.6 Absolute Lymphs (auto) 1.81 Nucleated RBC % 0 Sodium 140 Potassium 3.7 Chloride 104 Carbon Dioxide 32.0 Anion Gap 4 L BUN 18 Creatinine 0.93 Estim Creat Clear Calc 94.70 Est GFR (MDRD) Af Amer 128 Est GFR (MDRD) Non-Af 106 BUN/Creatinine Ratio 19.3 Glucose 101 Calcium 9.3 Total Bilirubin 0.70 Direct Bilirubin 0.17 AST 30 ALT 22 Alkaline Phosphatase 71 Total Protein 7.3 Albumin 4.2 Globulin 3.1 Lipase 117 Urine Color Yellow Urine Clarity Sl. Cloudy Urine pH 6.0 Ur Specific [place] 1.025 Urine Protein 15 H Urine Glucose (UA) Normal Urine Ketones Negative Urine Occult Blood 250 H Urine Nitrite Negative Urine Bilirubin Negative Urine Urobilinogen Normal Ur Leukocyte Esterase 100 H Urine RBC 25-50 SEEN Urine WBC 10-25 SEEN Ur Squamous Epith Cells 0-5 SEEN Urine Bacteria 1+ Urine Mucus 0 SEEN Radiography Diagnostic Testing: Clinical Impression(s) from Imaging Studies Abdomen/Pelvis CT 01/31/22 10:21 IMPRESSION: Mild degree of gallbladder wall thickening with pericholecystic fluid and questionable small gallstones. Correlation with ultrasound is recommended. Electronically Signed: Randal Coates MD at 13:02 EDT , Gallbladder Ultrasound 01/31/22 13:15 IMPRESSION: Mildly thickened gallbladder wall with a small amount of pericholecystic fluid. Small gallbladder polyps No evidence of gallstones. Electronically Signed: Randal Coates MD at 14:25 EDT , Treatment and Re-Evaluation Narrative: Lab work is unremarkable including a normal white count. No left shift. CT scan reveals mild gallbladder wall thickening with pericholecystic fluid and questionable gallstones. Ultrasound recommended. Right upper quadrant ultrasound is obtained. There is a mildly thickened gallbladder wall at 4.1 mm. There is a small amount of pericholecystic fluid. No gallstones appreciated. On repeat exam patient is resting comfortably and feels improved. He has min imal to no tenderness on palpation of the right upper quadrant. I spoke with Dr. Agudelo who reviewed the patient's lab work and imaging. He does not feel that this represents acute cholecystitis. I will discharge the patient home to continue Bentyl and I will provide him with a prescription for Prilosec and naproxen. He will be referred to GI for follow-up. Return instructions are provided. Discharge Plan Triage Chief Complaint: Abd Pain ED Provider: Kristel Morales Dx/Rx/DC Orders Clinical Impression: Abdominal pain Instructions: ED Abdominal Pain Unkn Cause Male... Prescriptions: New naproxen [Naprosyn] 500 mg tablet 500 mg PO BID PRN (Reason: pain) Qty: 20 0RF omeprazole 20 mg capsule,delayed release(DR/EC) 20 mg PO DAILY 28 Days Qty: 28 0RF No Action tizanidine [Zanaflex] 4 mg capsule 4 mg PO Q8H PRN (Reason: muscle spasticity) Qty: 20 0RF Primary Care Provider: Adam Paiz Referrals: Adam Paiz MD [Primary Care Provider] - [place] DO [Med Staff - Active Staff] - As soon as possible Disposition Disposition: Home, Self Care
[2022-01-31 10:31] LABS: Absolute Lymphocyte Count 1.81 X10^3/uL (0.83-4.51); Absolute Neutrophil Count 2.6 X10^3/uL (2.0-7.7); Basophil# 0.03 X10^3/uL; Basophil% 0.6 % (0-1); Hematocrit 44.4 % (40-54); Hemoglobin 14.7 g/dL (13.0-16.5); Lymphocyte # 1.81 X10^3/ul (0.83-4.51); Lymphocyte % 38.5 % (19-41); Mean Corp Hgb Conc 33.1 g/dL (32-36); Mean Corpuscular Hgb 30.8 pg (27.0-32.0); Mean Corpuscular Volume 92.9 fL (80-94); Mean Platelet Vol. 11.5 fl (6.2-12.0); Monocyte# 0.29 X10^3/uL; Monocyte% 6.2 % (0-10); NRBC Flagged by Analyzer 0 % (0-5); Neutrophil # 2.56 X10^3/uL (2.7-7.7); Neutrophil % 54.5 % (47-70); Platelet Count 173 K/mm3 (150-450); RBC Distribution Width CV 12.5 % (11.6-14.6); RBC Distribution Width SD 43.1 fl (35.1-43.9); Red Blood Count 4.78 M/mm3 (4.6-6.2); White Blood Count 4.7 K/mm3 (4.4-11.0)
[2022-01-31] MEDS: Ondansetron 4 MG/2 ML Vial IV (10:31)
[2022-01-31] MEDS: 0.9% Normal Saline 1,000 ML 1000 ML IV (10:31)
[2022-01-31] MEDS: Ketorolac 30 MG/ML Syringe IV (10:32)
[2022-01-31 10:39] LABS: Mucous, Urine 0 SEEN /hpf (<or=2+)
[2022-01-31 10:40] LABS: Color, Urine Yellow (Yellow); Glucose, Dipstick Normal (Normal); Ketone-Dipstick Negative (Negative); Leukocyte Esterase-Dipstick 100 /ul (Negative); Nitrite-Dipstick Negative (Negative); Occult Blood-Urine 250 /ul (Negative); Protein-Dipstick 15 mg/dl (Negative); Specific Gravity, Urine 1.025 (1.002-1.030); Urine Bilirubin Dipstick Negative (Negative); Urine Clarity Sl. Cloudy (Clear); Urine Urobilinogen Normal (Normal)
[2022-01-31 10:45] LABS: AST(SGOT) 30 U/L (15-37); Alanine Aminotransfer ALT/SGPT 22 U/L (16-61); Albumin, Serum 4.2 g/dL (3.2-5.0); Alkaline Phosphatase 71 U/L (45-117); Anion Gap 4 (5-15); BUN 18 mg/dL (7-18); BUN/Creat Ratio 19.3 RATIO (10-20); Bilirubin, Direct 0.17 mg/dL (0.00-0.30); Calcium,Total 9.3 mg/dL (8.5-10.1); Chloride 104 mmol/L (98-107); Creatinine, Serum 0.93 mg/dL (0.70-1.30); EST Glomerular Filtration Rate 106 mL/min (>60); Est Glom Filt Rate - Afr Amer 128 mL/min (>60); Globulin 3.1 g/dL (2.2-4.2); Glucose 101 mg/dL (74-106); Lipase 117 U/L (73-393); Potassium 3.7 mmol/L (3.5-5.1); Protein, Total 7.3 g/dL (6.4-8.2); Sodium Level 140 mmol/L (136-145)
[2022-01-31 10:46] LABS: Bacteria 1+ /hpf (None Seen); Red Blood Cells-Urine 25-50 SEEN /hpf (0-5); Squamous Epithelial Cells - UA 0-5 SEEN /hpf (0-5); White Blood Cells 10-25 SEEN /hpf (0-5)
--- NOTE | 2022-01-31 13:15 | US_ITS ---
STUDY: ABDOMINAL ULTRASOUND - RIGHT UPPER QUADRANT REASON FOR VISIT: Male, 21 years old . Abdominal pain. TECHNIQUE: Ultrasound evaluation of the right upper quadrant was performed with real-time and static stokes-scale imaging. TECHNICAL QUALITY: Adequate. COMPARISON: Comparison is made with prior CT scan done earlier today. FINDINGS: Liver: The liver measures 14.8 cm. There is normal echogenicity of the liver. The bile ducts are within normal limits. There is hepatic color flow. The direction of portal flow is hepatopetal. There is no demonstrated mass lesion. Gallbladder: Normal distended gallbladder. The gallbladder wall is thickened and measures 4.1 mm. There is a negative sonographic Acevedo''s sign. There is a small amount of pericholecystic fluid. There are no gallstones. There is evidence of tiny polyps adherent to the gallbladder wall. Common Bile Duct (C.B.D.): The common bile duct measures 4.8 mm. Pancreas: Normal size of the head, body and tail of the pancreas. There is normal echogenicity of the pancreas. There is no demonstrated pancreatic mass or cyst. Right Kidney: Normal size of the right kidney. The right kidney measures 9.5 cm x 5.3 cm x 3.4 cm. Normal renal cortex. The right cortex measures 1.1 cm. There is no demonstrated renal mass or cyst. There is no right hydronephrosis. US/Gallbladder IMPRESSION: Mildly thickened gallbladder wall with a small amount of pericholecystic fluid. Small gallbladder polyps No evidence of gallstones. Electronically Signed: Randal Coates MD at 14:25 EDT ,
[2022-01-31 14:04] VITALS: BP 136/65; PULSE 54; RESP 16; O2SAT 98
[2022-01-31 15:11] VITALS: BP 118/66; RESP 19; O2SAT 98
== END 2022-01-31 15:17 | disposition home or self-care (01) ==
PROVIDERS: Emergency Provider Emergency Medicine; PCP Family Medicine; Visit Provider Emergency Medicine
DX: R10.9 Unspecified abdominal pain (principal); G80.9 Cerebral palsy, unspecified; Z79.899 Other long term (current) drug therapy
CPT/HCPCS: 74177; 76705; 80048; 80076; 81001; 83690; 85025; 96361; 96374; 96375; 99283; Q9967; J2405

== ENCOUNTER 2022-03-05 21:17 | Emergency (ER) | payer MEDICAID, SELFPAY ==
[2022-03-05 21:18] VITALS: BP 128/75; PULSE 76; RESP 15; TEMP 36.7; O2SAT 98; BMI 18.9
--- NOTE | 2022-03-05 21:40 | EDS_ITS ---
HPI HPI - URI History of Present Illness Chief Complaint: Sore Throat Informant: patient Onset/Context/Timing Onset: Days Context: Gradual Onset Timing: Continuous Current Severity: Mild Maximum Severity: Mild Associated Symptoms Associated Symptoms: Positive for Nasal Congestion and Nonproductive cough; N egative for Diarrhea, Shortness of Breath, Chest Pain or Productive Cough Narrative Narrative: 21-year-old male history of cerebral palsy. He had a cough and sore throat the last several days. No fever. No vomiting. No diarrhea. No shortness of breath. Nonproductive cough. No dysuria. No abdominal pain. Able to swallow. Prior similar symptoms: Yes Recent Illness/Hospitalization: No ROS ROS ED ROS Narrative Sore throat. Nasal congestion. Mild cough. Review of Systems ROS Unobtainable: Denies due to encephalopathy Constitutional Constitutional ED: Reports chills; Denies fever(s) Eyes Eyes: Denies blurry vision ENT ENT ED: Reports rhinorrhea and sore throat; Denies ear pain Respiratory/Chest Respiratory/Chest: Reports cough; Denies dyspnea Gastrointestinal Gastrointestinal: Denies abdominal pain, constipation, diarrhea, melena, nausea or vomiting Genitourinary Genitourinary ED: Denies dysuria or hematuria Musculoskeletal Musculoskeletal: Denies arthralgias Integumentary Denies abscess Neurologic Neurologic: Denies headache(s) Psychiatric Psychiatric: Denies anxiety Endocrine Endocrinology: Denies cold intolerance Hematologic/Lymphatic Hematologic/Lymphatic: Denies easy bleeding Allergic/Immunologic Allergic/Immunologic ED: Denies mouth swelling, tongue swelling or urticaria PFSH PFSH Medical History Cerebral palsy Herniated lumbar disc without myelopathy Migraines Home Medications tizanidine 4 mg capsule (Zanaflex) 4 mg PO Q8H PRN muscle spasticity #20 caps 08/16/21 [Rx Last Taken Unknown] Allergy/AdvReac Type Severity Reaction Status Date / Time latex Allergy Hives Verified 03/05/22 21:18 adhesive tape AdvReac Rash Verified 03/05/22 21:18 Surgical History History of appendectomy Social History Smoking Status: Never smoker alcohol intake: never substance use type: does not use EXAM Physical Exam Narrative Exam Narrative: Well-appearing 18-year-old male no acute distress vital signs stable afebrile. Pulse is 9 8% on room air no hypoxia. H EENT exam normal. TMs normal bilaterally. Posterior pharynx moist pink no erythema or exudate. No trouble swallowing or breathing no stridor or drooling. Neck nontender no meningismus. Lungs clear to auscultation. Heart regular rhythm no murmur. Abdomen soft nontender. Moving all 4 extremities. Back nontender. Skin no rashes. Neurologically is awake and alert. Const Vital Signs: 03/05/22 21:18 03/05/22 21:24 Temperature 98.0 F Temperature Source Temporal Pulse Rate 76 Respiratory Rate 15 Respiratory Effort Normal Non-Labored Respiratory Pattern Normal Blood Pressure 128/75 H Blood Pressure Mean 92 Pulse Ox 98 Oxygen Delivery Method Room Air Positive well nourished and well developed; Negative for obese, cachectic or contractures General Appearance ED: well developed and NAD; Negative for cachectic, contractures, cyanotic, diaphoretic or pallor Nutritional Appearance: Negative for cachectic or obese HEENT Reports moist mucous membranes; Denies dry mucous membranes normocephalic and atraumatic; Negative for scalp tenderness Face and Sinus: Negative for sinus tenderness Mouth ED: No dry mucous membranes Mouth: No dry mucous membranes Throat: posterior oropharynx normal; Negative for tonsils abnormal or posterior oropharynx abnormal Eyes PERRL and EOMs intact bilaterally General Eye ED: Negative for pale conjunctiva or scleral icterus Neck no lymphadenopathy, supple, no meningeal signs and no JVD General: Negative for anterior neck swelling or lymphadenopathy Resp normal respiratory effort and clear to auscultation bilaterally Effort and Inspection: Negative for retractions Auscultation: Negative for rales, rhonchi or wheezes Cardio S1 normal heart sound, S2 normal heart sound and no murmurs Rate: regular rate; Negative for bradycardia Rhythm: Negative for regular rhythm or abnormal rhythm GI non-tender, non-distended and no masses Inspection: Negative for abdominal distention Auscultation: normoactive bowel sounds Palpation: soft and tender Back/Spine no CVA tenderness and normal ROM General Back: Negative for CVA tenderness Cervical Spine: Negative for cervical spine tenderness Thoracic Spine / Upper Back: Negative for thoracic spinal tenderness Lumbar Spine / Lower Back: Negative for lumbar spinal tenderness Sacrum: Negative for tenderness Extremity normal to inspection and full ROM General Extremety ED: Negative for cyanosis or tenderness General Extremity: Negative for cyanosis Neuro oriented x3 Sensorium / Orientation: alert, oriented to person, oriented to place and oriented to time; Negative for orientation impaired, lethargic, stuporous or oth er Motor Exam: strength 5/5 throughout Psych mental status grossly normal Appearance: Negative for other Attitude: No agitated Mood & Affect: Negative for depressed, anxious or tearful Skin General Skin Exam: Negative for jaundice or pallor Lesions: no lesions Rashes: no rashes MDM MDM MDM Narrative Medical decision making narrative: 21-year-old male with URI symptoms. Rapid strep will be obtained. Clinically looks well. To be discharged to home. Repeat exam doing well at 11:18 PM. Will be discharged to home. Lab Data Attestation: I reviewed the patient's lab results. Lab results narrative: Rapid strep test negative. Discharge Plan Triage Chief Complaint: Sore Throat ED Provider: Dereje Sánchez Dx/Rx/DC Orders Clinical Impression: Viral URI, History of cerebral palsy Instructions: ED Pharyngitis, Viral, ED URI, Viral, No Abx (Adult) Prescriptions: No Action tizanidine [Zanaflex] 4 mg capsule 4 mg PO Q8H PRN (Reason: muscle spasticity) Qty: 20 0RF Primary Care Provider: Adam Paiz Referrals: Adam Paiz MD [Primary Care Provider] - 1 Week if not improving Activity Restrictions/Additional Instructions: Plenty of fluids and rest. Warm salt water gargling. Motrin and Tylenol for pain and body aches. Follow-up with your doctor if not improving return if worse. Disposition Disposition: Home, Self Care
== END 2022-03-05 23:15 | disposition home or self-care (01) ==
LOC: ED 21:55
PROVIDERS: Emergency Provider Emergency Medicine; PCP Family Medicine; Visit Provider Emergency Medicine
DX: J06.9 Acute upper respiratory infection, unspecified (principal); G80.9 Cerebral palsy, unspecified
CPT/HCPCS: 87880; 99283

== ENCOUNTER 2022-03-27 02:05 | Emergency (ER) | payer MEDICAID, SELFPAY ==
[2022-03-27 02:06] VITALS: BP 139/83; PULSE 78; RESP 18; TEMP 36.6; O2SAT 97; BMI 19.1
[2022-03-27 02:13] VITALS: O2SAT 98
--- NOTE | 2022-03-27 02:22 | RAD_ITS ---
EXAM: XR CHEST, 2 VIEWS CLINICAL INDICATION: cough TECHNIQUE: Frontal and lateral views of the chest. This report was created using [employer] report generation technology. COMPARISON: Previous chest radiographs of 09/16/2020 and 10/26/2021 FINDINGS: LUNGS AND PLEURAL SPACES: Unremarkable. No consolidation or edema. No pneumothorax. No effusion. HEART: Unremarkable. Cardiac silhouette not enlarged. MEDIASTINUM: Central airways and mediastinal contour are unremarkable. BONES/JOINTS: Minimal S-shaped thoracolumbar scoliosis, which may be positional. SOFT TISSUES: Unremarkable. RAD/Chest PA and Lateral IMPRESSION: No radiographic evidence of acute cardiopulmonary disease. Electronically Signed: Chevy Levy MD at 3:04 EDT ,
[2022-03-27] MEDS: predniSONE 20 MG Tablet 60 MG PO (02:30)
[2022-03-27] MEDS: Ipratropium/Albuterol Sulfate 3 ML AMPUL.NEB INHALATION (02:30)
[2022-03-27] MEDS: guaiFENesin/Codeine 5 ML UDC 10 ML PO (02:31)
--- NOTE | 2022-03-27 02:34 | EX.ED.DYSGE1 ---
HPI History of Present Illness Chief Complaint: Shortness of Breath Narrative Narrative: Patient is a 21-year-old male with past medical history of cerebral palsy. He was seen on March 05 secondary to upper respiratory infection symptoms. He states he got better from that but for the past week he has had increasing congestion cough and shortness of breath. He denies any history of asthma COPD smoking or vaping. He denies any known sick contacts. He states that he was swabbed for COVID and has strep check last time he was here. He states that he feels like his symptoms have been slowly worsening for the past week and with concern for developing infection comes in for evaluation [facility] Medical History Cerebral palsy Herniated lumbar disc without myelopathy Migraines Home Medications tizanidine 4 mg capsule (Zanaflex) 4 mg PO Q8H PRN muscle spasticity #20 caps 08/16/21 [Rx Last Taken Unknown] albuterol sulfate 90 mcg/actuation aerosol inhaler (Ventolin HFA) 2 puff inhalation Q4H PRN PRN Wheezing #1 device 03/27/22 [Rx Last Taken Unknown] azelastine 137 mcg (0.1 %) nasal spray aerosol 2 spray intranasal BID #30 mL 03/27/22 [Rx Last Taken Unknown] prednisone 20 mg tablet 40 mg PO DAILY 5 days #10 tabs 03/27/22 [Rx Last Taken Unknown] promethazine 6.25 mg-codeine 10 mg/5 mL syrup 5 ml PO 4X/DAY PRN PRN cough 7 days #140 mL 03/27/22 [Rx Last Taken Unknown] Allergy/AdvReac Type Severity Reaction Status Date / Time latex Allergy Hives Verified 03/05/22 21:18 adhesive tape AdvReac Rash Verified 03/05/22 21:18 Surgical History History of appendectomy Social History Smoking Status: Never smoker alcohol intake: never substance use type: does not use ROS ROS ED Constitutional Constitutional ED: Denies chills or fever(s) ENT ENT ED: Reports rhinorrhea and sore throat Cardiovascular Cardiovascular: Denies chest pain Respiratory/Chest Respiratory/Chest: Reports cough and dyspnea Gastrointestinal Gastrointestinal: Denies abdominal pain, diarrhea, nausea or vomiting Genitourinary Genitourinary ED: Denies dysuria Musculoskeletal Musculoskeletal: Reports myalgias Integumentary Denies rash Neurologic Neurologic: Denies headache(s) Hematologic/Lymphatic Hematologic/Lymphatic: Denies easy bleeding or easy bruising EXAM Physical Exam Const Vital Signs: 03/27/22 02:06 03/27/22 02:13 03/27/22 02:39 Temperature 98 F Temperature Source Temporal Pulse Rate 78 88 Respiratory Rate 18 21 H Respiratory Effort Short of Breath Respiratory Pattern Tachypnea Blood Pressure 139/83 H Blood Pressure Mean 101 Pulse Ox 97 Oxygen Delivery Method Room Air Positive well nourished and well developed General Appearance ED: well developed HEENT Reports moist mucous membranes HEENT Narrative: Bilateral TMs are retracted but show no secondary changes to suggest infection. Nasal mucosa is hyperemic and boggy with enlarged inferior nasal turbinates There is cobblestoning the posterior pharynx consistent with sinus drainage but no airway edema or compromise Eyes PERRL and EOMs intact bilaterally Neck supple Neck Narrative: No crepitance noted. No pain with external epilation of the thyroid cartilage. Positive anterior cervical lymphadenopathy Resp normal respiratory effort Resp Narrative: Breath sounds are diminished throughout with faint rhonchi in bilateral bases otherwise no nasal flaring retractions tachypnea or accessory muscle use Cardio regular rate and regular rhythm Extremity Extremity Narrative: No asymmetric edema no pitting edema negative Homans' sign bilaterally. Chronic changes to the bilateral lower extremities secondary to history of cerebral palsy Neuro oriented x3 and CN's II-XII intact bilaterally Sensorium / Orientation: alert Psych mental status grossly normal Skin no rashes or lesions noted MDM MDM MDM Narrative Medical decision making narrative: Patient presented to the ER satting in the high 90s on room air with minimal work of breathing. His constellation of symptoms are most consistent with viral infection. He had COVID and strep obtained in the last few weeks and therefore did not want this retested. With his wheeze and mild increased work of breathing/cough I did elect to perform a chest x-ray to rule out pneumonia. X-ray revealed no acute findings. After giving steroids and a breathing treatment and cough syrup patient had improvement of his breath sounds and resolution of symptoms. Therefore at this time as he is not requiring supplemental oxygen or showing signs of respiratory distress he was given symptomatic medications and discharged home for his viral upper respiratory infection Radiography Diagnostic Testing: Clinical Impression(s) from Imaging Studies Chest X-Ray 03/27/22 02:22 IMPRESSION: No radiographic evidence of acute cardiopulmonary disease. Electronically Signed: Chevy Levy MD at 3:04 EDT , 2 view chest x-ray as interpreted by the emergency medicine physician reveals no acute infiltrate pneumothorax or pleural effusion Discharge Plan Triage Chief Complaint: Shortness of Breath ED Provider: Jose Randall Dx/Rx/DC Orders Clinical Impression: Upper respiratory tract infection, Wheezes, Cerebral palsy Instructions: ED URI, Viral W/ Wheezing (Adult) Prescriptions: New prednisone 20 mg tablet 40 mg PO DAILY 5 Days Qty: 10 0RF azelastine 137 mcg (0.1 %) aerosol,spray 2 spray intranasal BID Qty: 30 0RF Rx Instructions: administer into each nostril albuterol sulfate [Ventolin HFA] 90 mcg/actuation HFA aerosol inhaler 2 puff inhalation Q4H PRN PRN (Reason: Wheezing) Qty: 1 0RF promethazine-codeine 6.25-10 mg/5 mL syrup 5 ml PO 4X/DAY PRN PRN (Reason: cough) 7 Days Qty: 140 0RF No Action tizanidine [Zanaflex] 4 mg capsule 4 mg PO Q8H PRN (Reason: muscle spasticity) Qty: 20 0RF Stand Alone Forms: ED Work / School Excuse Primary Care Provider: Adam Paiz Referrals: Adam Paiz MD [Primary Care Provider] - Disposition Disposition: Home, Self Care
[2022-03-27 02:39] VITALS: PULSE 88; RESP 21
== END 2022-03-27 03:31 | disposition home or self-care (01) ==
PROVIDERS: Emergency Provider Emergency Medicine; PCP Family Medicine; Visit Provider Emergency Medicine
DX: J06.9 Acute upper respiratory infection, unspecified (principal); G80.9 Cerebral palsy, unspecified; R06.2 Wheezing
CPT/HCPCS: 71046; 94640; 99283

== ENCOUNTER 2022-04-03 00:57 | Emergency (ER) | payer MEDICAID, SELFPAY ==
[2022-04-03 00:58] VITALS: PULSE 74; RESP 15; TEMP 36.1; O2SAT 98; BMI 18.4
[2022-04-03 01:00] VITALS: BP 118/77
--- NOTE | 2022-04-03 01:20 | RAD_ITS ---
STUDY: X-RAY - RIGHT RADIUS AND ULNA REASON FOR EXAM: Male, 21 years old. injury TECHNIQUE: 2 view(s) of the forearm. COMPARISON: None. FINDINGS: There is no demonstrated soft tissue swelling. Normal visualized radius. Normal visualized ulna. There is no demonstrated acute fracture. RAD/Forearm 2 Views IMPRESSION: Normal x-ray examination of the radius and ulna. Electronically Signed: Jaclyn Antony MD at 1:53 EDT ,
--- NOTE | 2022-04-03 01:39 | EX.ED.UPPERE ---
HPI History of Present Illness Chief Complaint: Upper Extremity Injury Informant: patient and family Onset/Context/Timing Onset: Today Context: Sudden Onset Timing: Continuous Quality of Pain: - (sore) Location: R forearm Current Severity: Moderate Maximum Severity: Moderate Worsened by: moving, palpation Relieved by: remaining still Associated Symptoms Associated Symptoms: Positive for Parasthesia (thorughout forearm but not hand); Negative for Weakness or Loss of Funtion Narrative Narrative: Patient has history of several palsy, he is gone down some steps and missed stepped, fell down 2 or 3 steps landing firmly against his right forearm against the floor. Does not think he hit his head family is concerned about it. He has no headache or other injury. No loss of consciousness or amnesia. States start developing some numbness in his forearm after the injury. [facility] Medical History Cerebral palsy Herniated lumbar disc without myelopathy Migraines Home Medications tizanidine 4 mg capsule (Zanaflex) 4 mg PO Q8H PRN muscle spasticity #20 caps 08/16/21 [Rx Last Taken Unknown] albuterol sulfate 90 mcg/actuation aerosol inhaler (Ventolin HFA) 2 puff inhalation Q4H PRN PRN Wheezing #1 device 03/27/22 [Rx Last Taken Unknown] azelastine 137 mcg (0.1 %) nasal spray aerosol 2 spray intranasal BID #30 mL 03/27/22 [Rx Last Taken Unknown] prednisone 20 mg tablet 40 mg PO DAILY 5 days #10 tabs 03/27/22 [Rx Last Taken Unknown] promethazine 6.25 mg-codeine 10 mg/5 mL syrup 5 ml PO 4X/DAY PRN PRN cough 7 days #140 mL 03/27/22 [Rx Last Taken Unknown] Allergy/AdvReac Type Severity Reaction Status Date / Time latex Allergy Hives Verified 03/05/22 21:18 adhesive tape AdvReac Rash Verified 03/05/22 21:18 Surgical History History of appendectomy Social History Smoking Status: Never smoker alcohol intake: never substance use type: does not use ROS ROS ED Constitutional Constitutional ED: Denies chills or fever(s) Musculoskeletal Musculoskeletal: Reports extremity pain; Denies neck pain Integumentary Denies Abrasions, rash or wounds Neurologic Neurologic: Denies paresthesias or weakness EXAM Physical Exam Const Vital Signs: 04/03/22 00:58 04/03/22 01:00 Temperature 97 F L Temperature Source Temporal Pulse Rate 74 Respiratory Rate 15 Blood Pressure 118/77 Blood Pressure Mean 90 Pulse Ox 98 Oxygen Delivery Method Room Air Positive well nourished and well developed General Appearance ED: well developed and NAD HEENT Reports moist mucous membranes HEENT Narrative: TMs normal bilaterally. No sweet sign. No periorbital ecchymosis bilaterally. normocephalic and atraumatic Eyes Negative for PERRL or EOMs intact bilaterally Neck full ROM and supple Chest Wall inspection of chest normal and palpation of chest normal Back/Spine normal ROM and normal to inspection Extremity Extremity Narrative: Erythema and tenderness throughout the ulna and the right forearm. Full range of motion of the elbow and wrist without apparent difficulty. Painless pronation and supination. No deformities. Skin intact. Neuro oriented x3, no focal motor deficits and no sensory deficits noted Sensorium / Orientation: alert Psych mental status grossly normal and thought process normal Skin no wounds Rashes: no rashes MDM MDM MDM Narrative Medical decision making narrative: No signs of any head injury, he passes multiple criteria to require no imaging of his head at this time. X-rays 2 views of my interpretation right forearm negative for any fracture or bony abnormality. Reassured, given an ice pack ibuprofen appropriate discharge instructions. Discharge Plan Triage Chief Complaint: Upper Extremity Injury ED Provider: Kristian Lagos Dx/Rx/DC Orders Clinical Impression: Contusion of forearm, right, Accidental fall on or from stairs or steps Instructions: ED Contusion, Upper Extremity Prescriptions: No Action tizanidine [Zanaflex] 4 mg capsule 4 mg PO Q8H PRN (Reason: muscle spasticity) Qty: 20 0RF prednisone 20 mg tablet 40 mg PO DAILY 5 Days Qty: 10 0RF azelastine 137 mcg (0.1 %) aerosol,spray 2 spray intranasal BID Qty: 30 0RF Rx Instructions: administer into each nostril albuterol sulfate [Ventolin HFA] 90 mcg/actuation HFA aerosol inhaler 2 puff inhalation Q4H PRN PRN (Reason: Wheezing) Qty: 1 0RF promethazine-codeine 6.25-10 mg/5 mL syrup 5 ml PO 4X/DAY PRN PRN (Reason: cough) 7 Days Qty: 140 0RF Primary Care Provider: Adam Paiz Referrals: Adam Paiz MD [Primary Care Provider] - As Needed Disposition Disposition: Home, Self Care
[2022-04-03] MEDS: Ibuprofen 600 MG Tablet PO (01:47)
== END 2022-04-03 01:52 | disposition home or self-care (01) ==
PROVIDERS: Emergency Provider Emergency Medicine; PCP Family Medicine; Visit Provider Emergency Medicine
DX: S50.11XA Contusion of right forearm, initial encounter (principal); G80.9 Cerebral palsy, unspecified; R20.2 Paresthesia of skin; W10.9XXA Fall (on) (from) unspecified stairs and steps, initial encounter; Z79.52 Long term (current) use of systemic steroids
CPT/HCPCS: 73090; 99283

== ENCOUNTER 2022-04-05 01:56 | Emergency (ER) | payer MEDICAID, SELFPAY ==
[2022-04-05 01:58] VITALS: BP 125/71; PULSE 74; RESP 17; TEMP 36.8; O2SAT 99; BMI 19.1
--- NOTE | 2022-04-05 02:13 | ED.VIS.GI ---
HPI HPI - GI History of Present Illness Chief Complaint: Abd Pain Informant: patient Abdominal Pain/Flank Pain Onset: Weeks Timing: Intermittent Quality: Cramping Location: Diffuse Current Severity: Mild Maximum Severity: Mild Worsened by: Nothing Relieved by: Nothing Nausea/Vomiting/Emesis GI Symptom: Negative for Nausea or Vomiting Diarrhea/Melena/Hematochezia GI Symptom: Negative for Diarrhea, Melena or Hematochezia Associated Symptoms Associated Symptoms: Negative for Dysuria, Frequency, Hematuria or Urgency Narrative Narrative: 21-year-old male past medical history of prior appendectomy. Had extensive work-up in emergency department January 31 including labs which were unremarkable CAT scan and ultrasound. He also was evaluated by general surgery who looked over his test results and felt he can be seen as an outpatient. There was some question on his gallbladder but they did not think it was secondary to acute cholecystitis. He has basically had intermittent abdominal cramping. At times he will have some loose stools at other times he might have some mild constipation. He has been having normal bowel movements. No melena. No fever. No weight loss. No dysuria. He denies any abdominal trauma. Prior similar symptoms: Yes Recent Illness/Hospitalization: No [facility] Medical History Cerebral palsy Herniated lumbar disc without myelopathy Migraines Home Medications tizanidine 4 mg capsule (Zanaflex) 4 mg PO Q8H PRN muscle spasticity #20 caps 08/16/21 [Rx Last Taken Unknown] albuterol sulfate 90 mcg/actuation aerosol inhaler (Ventolin HFA) 2 puff inhalation Q4H PRN PRN Wheezing #1 device 03/27/22 [Rx Last Taken Unknown] azelastine 137 mcg (0.1 %) nasal spray aerosol 2 spray intranasal BID #30 mL 03/27/22 [Rx Last Taken Unknown] prednisone 20 mg tablet 40 mg PO DAILY 5 days #10 tabs 03/27/22 [Rx Last Taken Unknown] promethazine 6.25 mg-codeine 10 mg/5 mL syrup 5 ml PO 4X/DAY PRN PRN cough 7 days #140 mL 03/27/22 [Rx Last Taken Unknown] Allergy/AdvReac Type Severity Reaction Status Date / Time latex Allergy Hives Verified 04/05/22 01:58 adhesive tape AdvReac Rash Verified 04/05/22 01:58 Surgical History History of appendectomy Social History Smoking Status: Never smoker alcohol intake: never substance use type: does not use ROS ROS ED ROS Narrative Loose stools at times. Constipation at times. Review of Systems ROS Unobtainable: Denies due to encephalopathy Constitutional Constitutional ED: Denies chills or fever(s) ENT ENT ED: Denies ear pain Cardiovascular Cardiovascular: Denies chest pain Respiratory/Chest Respiratory/Chest: Denies cough Gastrointestinal Gastrointestinal: Reports abdominal pain, constipation and diarrhea; Denies melena, nausea or vomiting Genitourinary Genitourinary ED: Denies dysuria or hematuria Musculoskeletal Musculoskeletal: Denies arthralgias Integumentary Denies abscess Neurologic Neurologic: Denies headache(s) Psychiatric Psychiatric: Denies anxiety Endocrine Endocrinology: Denies polydipsia Hematologic/Lymphatic Hematologic/Lymphatic: Denies easy bleeding Allergic/Immunologic Allergic/Immunologic ED: Denies mouth swelling or tongue swelling EXAM Physical Exam Narrative Exam Narrative: Well-appearing 21-year-old male. Vital signs stable afebrile. No distress. H EENT exam unremarkable. Neck nontender no lymphadenopathy. Lungs clear to auscultation bilaterally. Heart regular rate and rhythm rate about 75 no murmur. Chest nontender. Abdomen soft nontender normal bowel sounds no peritoneal signs. No distention. Moving all 4 extremities. Calves nontender. No edema. Back normal. Neurologic exam normal. Const Vital Signs: 04/05/22 01:58 Temperature 98.2 F Temperature Source Temporal Pulse Rate 74 Respiratory Rate 17 Blood Pressure 125/71 H Blood Pressure Mean 89 Pulse Ox 99 Oxygen Delivery Method Room Air Positive well nourished and well developed; Negative for obese, cachectic, contractures or unkempt General Appearance ED: well developed and NAD; Negative for unkempt, cachectic, contractures or pallor Nutritional Appearance: Negative for cachectic or obese HEENT Reports moist mucous membranes normocephalic and atraumatic; Negative for trauma or tenderness Eyes EOMs intact bilaterally General Eye ED: Negative for pale conjunctiva or scleral icterus Neck no lymphadenopathy, supple and no JVD General: Negative for tenderness Carotids: Negative for other Lymph Lymphatic: Negative for other Resp normal respiratory effort and clear to auscultation bilaterally Effort and Inspection: Negative for respiratory distress Auscultation: Negative for rales, rhonchi or wheezes Cardio regular rate, regular rhythm, S1 normal heart sound, S2 normal heart sound and no murmurs Rate: Negative for bradycardia or tachycardic GI non-tender, non-distended and no masses Inspection: Negative for abdominal distention Auscultation: normoactive bowel sounds; Negative for hyperactive bowel sounds or hypoactive bowel sounds Palpation: soft; Negative for tender, guarding, rigid, hepatomegaly, splenomegaly, hernia, mass, pulsatile mass or rebound tenderness present Back/Spine no CVA tenderness General Back: Negative for CVA tenderness Cervical Spine: Negative for cervical spine tenderness Thoracic Spine / Upper Back: Negative for thoracic spinal tenderness Lumbar Spine / Lower Back: Negative for lumbar spinal tenderness Coccyx: Negative for other Extremity full ROM General Extremety ED: Negative for edema or tenderness General Extremity: Negative for edema Neuro CN's II-XII intact bilaterally and moves all extremities Sensorium / Orientation: alert, oriented to person, oriented to place and oriented to time; Negative for orientation impaired, confused, lethargic or stuporous Motor Exam: strength 5/5 throughout Psych mental status grossly normal and thought process normal Appearance: Negative for unkempt Attitude: No agitated Mood & Affect: Negative for depressed, anxious or tearful Skin no wounds General Skin Exam: Negative for jaundice or pallor Lesions: no lesions Rashes: no rashes Trauma: Negative for abrasion Nails: Negative for discolored MDM MDM MDM Narrative Medical decision making narrative: 21-year-old with intermittent abdominal cramping. Sometimes loose stools sometimes constipation. Exam is totally benign. He had a recent extensive work-up including labs, ultrasound and CAT scan. He is following up with GI but has been unable to get in as of this time. He does not need any further work-up at this time. He has had a prior appendectomy. His exam shows no signs of obstruction nor peritoneal signs nor cholecystitis. Discharge Plan Triage Chief Complaint: Abd Pain ED Provider: Dereje Sánchez Dx/Rx/DC Orders Clinical Impression: Abdominal pain, Cerebral palsy Instructions: Abdominal Pain Prescriptions: No Action tizanidine [Zanaflex] 4 mg capsule 4 mg PO Q8H PRN (Reason: muscle spasticity) Qty: 20 0RF prednisone 20 mg tablet 40 mg PO DAILY 5 Days Qty: 10 0RF azelastine 137 mcg (0.1 %) aerosol,spray 2 spray intranasal BID Qty: 30 0RF Rx Instructions: administer into each nostril albuterol sulfate [Ventolin HFA] 90 mcg/actuation HFA aerosol inhaler 2 puff inhalation Q4H PRN PRN (Reason: Wheezing) Qty: 1 0RF promethazine-codeine 6.25-10 mg/5 mL syrup 5 ml PO 4X/DAY PRN PRN (Reason: cough) 7 Days Qty: 140 0RF Primary Care Provider: Adam Paiz Referrals: Adam Paiz MD [Primary Care Provider] - As soon as possible Activity Restrictions/Additional Instructions: Follow-up with your primary care physician 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 Disposition Disposition: Home, Self Care
== END 2022-04-05 02:37 | disposition home or self-care (01) ==
LOC: ED 02:24
PROVIDERS: Emergency Provider Emergency Medicine; PCP Family Medicine; Visit Provider Emergency Medicine
DX: R10.9 Unspecified abdominal pain (principal); G80.9 Cerebral palsy, unspecified; Z79.899 Other long term (current) drug therapy
CPT/HCPCS: 99282

== ENCOUNTER 2022-11-29 19:14 | Emergency (ER) | payer MEDICAID, SELFPAY ==
[2022-11-29 19:15] VITALS: BP 149/80; PULSE 97; RESP 15; TEMP 36.9; O2SAT 100; BMI 18.1
--- NOTE | 2022-11-29 19:31 | EX.ED.DYSGE1 ---
HPI History of Present Illness Chief Complaint: Other, Pain/Inj Detail of Chief Complaint: Sore throat and abdominal pain Informant: patient and spouse/S.O. Onset/Context/Timing Onset: Days Narrative Narrative: Patient presents secondary to sore throat and abdominal pain for the past 3 days. Several of his kids and his spouse have strep throat and are currently being treated. Patient developed sore throat 3 days ago. Patient also developed lower abdominal pain recently. He states his brother recently got out of and he is playing football with him. After diving he has had cramping and spasm in the lower abdomen. This is near the site of his prior appendectomy. He does also report some problems with abdominal pain when he eats. He has not had significant fever, but states it has been borderline. Although he does not want to speak, he is tolerating secretions well and when he does speak has a strong voice. [facility] Medical History Cerebral palsy Herniated lumbar disc without myelopathy Migraines Home Medications tizanidine 4 mg capsule (Zanaflex) 4 mg PO Q8H PRN muscle spasticity #20 caps 08/16/21 [Rx Last Taken Unknown] albuterol sulfate 90 mcg/actuation aerosol inhaler (Ventolin HFA) 2 puff inhalation Q4H PRN PRN Wheezing #1 device 03/27/22 [Rx Last Taken Unknown] azelastine 137 mcg (0.1 %) nasal spray aerosol 2 spray intranasal BID #30 mL 03/27/22 [Rx Last Taken Unknown] prednisone 20 mg tablet 40 mg PO DAILY 5 days #10 tabs 03/27/22 [Rx Last Taken Unknown] promethazine 6.25 mg-codeine 10 mg/5 mL syrup 5 ml PO 4X/DAY PRN PRN cough 7 days #140 mL 03/27/22 [Rx Last Taken Unknown] amoxicillin 500 mg capsule 500 mg PO BID #20 caps 11/29/22 [Rx Last Taken Unknown] cyclobenzaprine 10 mg tablet 10 mg PO BID PRN muscle spasm #10 TABLETS 11/29/22 [Rx Last Taken Unknown] omeprazole 20 mg capsule,delayed release 20 mg PO DAILY 4 weeks #28 caps 11/29/22 [Rx Last Taken Unknown] prednisone 20 mg tablet 40 mg PO DAILY #8 tabs 11/29/22 [Rx Last Taken Unknown] Allergy/AdvReac Type Severity Reaction Status Date / Time latex Allergy Hives Verified 11/29/22 19:17 adhesive tape AdvReac Rash Verified 11/29/22 19:17 Surgical History History of appendectomy Social History Smoking Status: Never smoker alcohol intake: never substance use type: does not use ROS ROS ED Constitutional Constitutional ED: Denies chills or fever(s) Eyes Eyes: Denies change in vision ENT ENT ED: Reports sore throat; Denies rhinorrhea Cardiovascular Cardiovascular: Denies chest pain or palpitations Respiratory/Chest Respiratory/Chest: Denies cough or dyspnea Gastrointestinal Gastrointestinal: Reports abdominal pain; Denies diarrhea or vomiting Genitourinary Genitourinary ED: Denies dysuria Neurologic Neurologic: Denies headache(s) Psychiatric Psychiatric: Denies anxiety or depression Allergic/Immunologic Allergic/Immunologic ED: Denies mouth swelling or tongue swelling EXAM Physical Exam Const Vital Signs: 11/29/22 19:15 Temperature 98.5 F Temperature Source Temporal Pulse Rate 97 Respiratory Rate 15 Blood Pressure 149/80 H Blood Pressure Mean 103 Pulse Ox 100 Oxygen Delivery Method Room Air Positive well nourished and well developed General Appearance ED: well developed HEENT Reports moist mucous membranes HEENT Narrative: 2+ tonsils bilaterally with mild erythema. Uvula midline. No significant exudate at this time. Eyes EOMs intact bilaterally Neck no lymphadenopathy Chest Wall inspection of chest normal and palpation of chest normal Resp normal respiratory effort and clear to auscultation bilaterally Cardio regular rate and regular rhythm GI GI Narrative: Abdomen soft with mild tenderness in the lower abdomen. No palpable hernias. Active bowel sounds noted throughout. Neuro oriented x3 and no sensory deficits noted Psych mental status grossly normal MDM MDM MDM Narrative Medical decision making narrative: Patient presents with symptoms consistent with strep throat and known exposure. He will be treated for presumed strep. He will be given amoxicillin for the next 10 days. I will also give him a short course of steroids to help with inflammation and pain. I will cover him with Prilosec to help his stomach while he is on steroids. He will also be given a short course of muscle relaxers to help with muscle spasm in his lower abdomen. At this time patient is tolerating secretions well I do not feel he needs imaging studies. Return instructions given. Discharge Plan Triage Chief Complaint: Other, Pain/Inj ED Provider: Kristel Morales Dx/Rx/DC Orders Clinical Impression: Strep pharyngitis Instructions: ED Pharyngitis, Strep (Presumed) Prescriptions: New amoxicillin 500 mg capsule 500 mg PO BID Qty: 20 0RF prednisone 20 mg tablet 40 mg PO DAILY Qty: 8 0RF omeprazole 20 mg capsule,delayed release(DR/EC) 20 mg PO DAILY 28 Days Qty: 28 0RF cyclobenzaprine 10 mg tablet 10 mg PO BID PRN (Reason: muscle spasm) Qty: 10 0RF No Action tizanidine [Zanaflex] 4 mg capsule 4 mg PO Q8H PRN (Reason: muscle spasticity) Qty: 20 0RF prednisone 20 mg tablet 40 mg PO DAILY 5 Days Qty: 10 0RF azelastine 137 mcg (0.1 %) aerosol,spray 2 spray intranasal BID Qty: 30 0RF Rx Instructions: administer into each nostril albuterol sulfate [Ventolin HFA] 90 mcg/actuation HFA aerosol inhaler 2 puff inhalation Q4H PRN PRN (Reason: Wheezing) Qty: 1 0RF promethazine-codeine 6.25-10 mg/5 mL syrup 5 ml PO 4X/DAY PRN PRN (Reason: cough) 7 Days Qty: 140 0RF Primary Care Provider: Adam Paiz Referrals: Adam Paiz MD [Primary Care Provider] - 1-2 Weeks Disposition Disposition: Home, Self Care
[2022-11-29] MEDS: Pantoprazole Sodium 40 MG Tablet PO (19:41)
[2022-11-29] MEDS: predniSONE 20 MG Tablet 40 MG PO (19:41)
[2022-11-29] MEDS: AMOXICILLIN 500 MG CAPSULE PO (19:41)
== END 2022-11-29 19:46 | disposition home or self-care (01) ==
LOC: ED 19:40
PROVIDERS: Emergency Provider Emergency Medicine; PCP Family Medicine; Visit Provider Emergency Medicine
DX: J02.0 Streptococcal pharyngitis (principal); G80.9 Cerebral palsy, unspecified; R10.30 Lower abdominal pain, unspecified; Z90.49 Acquired absence of other specified parts of digestive tract
CPT/HCPCS: 99283

== ENCOUNTER 2022-12-05 00:10 | Emergency (ER) | payer MEDICAID, SELFPAY ==
[2022-12-05 00:12] VITALS: BP 106/60; PULSE 80; RESP 16; TEMP 36.2; O2SAT 96; BMI 18.8
[2022-12-05 00:14] VITALS: O2SAT 97
--- NOTE | 2022-12-05 00:34 | RAD_ITS ---
EXAM: XR CHEST, 2 VIEWS CLINICAL INDICATION: cough TECHNIQUE: Frontal and lateral views of the chest. COMPARISON: PA lateral chest 03/27/2022 FINDINGS: LUNGS AND PLEURAL SPACES: Unremarkable. No consolidation or edema. No pneumothorax. No effusion. HEART: Unremarkable. Cardiac silhouette not enlarged. MEDIASTINUM: Central airways and mediastinal contour are unremarkable. BONES/JOINTS: Old, healed right mid clavicle fracture. SOFT TISSUES: Unremarkable. RAD/Chest PA and Lateral IMPRESSION: No acute findings in the chest. Electronically Signed: Joe Heath MD at 1:18 EDT ,
[2022-12-05] MEDS: Benzonatate 100 MG Capsule 200 MG PO (00:43)
--- NOTE | 2022-12-05 01:28 | EX.ED.DYSGE1 ---
HPI History of Present Illness Chief Complaint: Cough Informant: patient Onset/Context/Timing Onset: Days Context: Gradual Onset Narrative Narrative: Patient was seen over the weekend secondary to strep pharyngitis. He had multiple exposures. He states his throat is improving but now he has increased cough. No fever or chills. [facility] Medical History Cerebral palsy Herniated lumbar disc without myelopathy Migraines Home Medications tizanidine 4 mg capsule (Zanaflex) 4 mg PO Q8H PRN muscle spasticity #20 caps 08/16/21 [Rx Last Taken Unknown] albuterol sulfate 90 mcg/actuation aerosol inhaler (Ventolin HFA) 2 puff inhalation Q4H PRN PRN Wheezing #1 device 03/27/22 [Rx Last Taken Unknown] azelastine 137 mcg (0.1 %) nasal spray aerosol 2 spray intranasal BID #30 mL 03/27/22 [Rx Last Taken Unknown] prednisone 20 mg tablet 40 mg PO DAILY 5 days #10 tabs 03/27/22 [Rx Last Taken Unknown] promethazine 6.25 mg-codeine 10 mg/5 mL syrup 5 ml PO 4X/DAY PRN PRN cough 7 days #140 mL 03/27/22 [Rx Last Taken Unknown] amoxicillin 500 mg capsule 500 mg PO BID #20 caps 11/29/22 [Rx Last Taken Unknown] cyclobenzaprine 10 mg tablet 10 mg PO BID PRN muscle spasm #10 TABLETS 11/29/22 [Rx Last Taken Unknown] omeprazole 20 mg capsule,delayed release 20 mg PO DAILY 4 weeks #28 caps 11/29/22 [Rx Last Taken Unknown] prednisone 20 mg tablet 40 mg PO DAILY #8 tabs 11/29/22 [Rx Last Taken Unknown] benzonatate 200 mg capsule 200 mg PO BID PRN cough #20 caps 12/05/22 [Rx Last Taken Unknown] Allergy/AdvReac Type Severity Reaction Status Date / Time latex Allergy Hives Verified 12/05/22 00:15 adhesive tape AdvReac Rash Verified 12/05/22 00:15 Surgical History History of appendectomy Social History Smoking Status: Never smoker alcohol intake: never substance use type: does not use ROS ROS ED Constitutional Constitutional ED: Denies chills or fever(s) Eyes Eyes: Denies discharge from eye(s) ENT ENT ED: Denies discharge from eye(s), rhinorrhea or sore throat Cardiovascular Cardiovascular: Denies chest pain or palpitations Respiratory/Chest Respiratory/Chest: Reports cough; Denies dyspnea Gastrointestinal Gastrointestinal: Denies abdominal pain, nausea or vomiting Genitourinary Genitourinary ED: Denies dysuria Musculoskeletal Musculoskeletal: Denies back pain or extremity pain Integumentary Denies Abrasions or rash Neurologic Neurologic: Denies headache(s) or weakness Psychiatric Psychiatric: Denies anxiety or depression Allergic/Immunologic Allergic/Immunologic ED: Denies lip swelling or urticaria EXAM Physical Exam Const Vital Signs: 12/05/22 00:12 12/05/22 00:14 Temperature 97.2 F L Temperature Source Temporal Pulse Rate 80 Respiratory Rate 16 Respiratory Effort Normal Non-Labored Respiratory Depth Normal Respiratory Pattern Normal Blood Pressure 106/60 Blood Pressure Mean 75 Pulse Ox 96 Oxygen Delivery Method Room Air Room Air Positive well nourished and well developed General Appearance ED: well developed HEENT Reports normocephalic and head/scalp atraumatic Eyes PERRL and EOMs intact bilaterally Neck supple Chest Wall inspection of chest normal and palpation of chest normal Resp normal respiratory effort and clear to auscultation bilaterally Cardio regular rate and regular rhythm GI non-tender Auscultation: normoactive bowel sounds Palpation: soft Extremity normal to inspection Neuro oriented x3 and no sensory deficits noted Sensorium / Orientation: alert Motor Exam: strength 5/5 throughout Psych mental status grossly normal Skin no rashes or lesions noted MDM MDM MDM Narrative Medical decision making narrative: Patient given Tessalon Perles to control cough. Two-view chest x-ray obtained to evaluate for infiltrate. Differential diagnosis includes bronchitis, pneumonia. Radiography Diagnostic Testing: Clinical Impression(s) from Imaging Studies Chest X-Ray 12/05/22 00:34 IMPRESSION: No acute findings in the chest. Electronically Signed: Joe Heath MD at 1:18 EDT , Treatment and Re-Evaluation :: 2 view chest x-ray per my interpretation reveals no evidence of infiltrate. Radiology interpretation is reviewed and agrees. Test results are discussed with the patient. He is currently on amoxicillin which will cover majority of the respiratory kylie. I will write him a prescription for Tessalon Perles. Return instructions are given. Discharge Plan Triage Chief Complaint: Cough ED Provider: Kristel Morales Dx/Rx/DC Orders Clinical Impression: Cough, URI (upper respiratory infection) Instructions: ED Upper Resp Infec Abx Tx Prescriptions: New benzonatate 200 mg capsule 200 mg PO BID PRN (Reason: cough) Qty: 20 0RF No Action tizanidine [Zanaflex] 4 mg capsule 4 mg PO Q8H PRN (Reason: muscle spasticity) Qty: 20 0RF prednisone 20 mg tablet 40 mg PO DAILY 5 Days Qty: 10 0RF azelastine 137 mcg (0.1 %) aerosol,spray 2 spray intranasal BID Qty: 30 0RF Rx Instructions: administer into each nostril albuterol sulfate [Ventolin HFA] 90 mcg/actuation HFA aerosol inhaler 2 puff inhalation Q4H PRN PRN (Reason: Wheezing) Qty: 1 0RF promethazine-codeine 6.25-10 mg/5 mL syrup 5 ml PO 4X/DAY PRN PRN (Reason: cough) 7 Days Qty: 140 0RF amoxicillin 500 mg capsule 500 mg PO BID Qty: 20 0RF prednisone 20 mg tablet 40 mg PO DAILY Qty: 8 0RF omeprazole 20 mg capsule,delayed release(DR/EC) 20 mg PO DAILY 28 Days Qty: 28 0RF cyclobenzaprine 10 mg tablet 10 mg PO BID PRN (Reason: muscle spasm) Qty: 10 0RF Primary Care Provider: Adam Paiz Referrals: Adam Paiz MD [Primary Care Provider] - 5-7 Days Disposition Disposition: Home, Self Care Discharge Date/Time: 12/05/22 01:39
== END 2022-12-05 01:39 | disposition home or self-care (01) ==
PROVIDERS: Emergency Provider Emergency Medicine; PCP Family Medicine; Visit Provider Emergency Medicine
DX: J06.9 Acute upper respiratory infection, unspecified (principal)
CPT/HCPCS: 71046; 99282

== ENCOUNTER 2023-01-31 00:19 | Emergency (ER) | payer MEDICAID, SELFPAY ==
[2023-01-31 00:21] VITALS: BP 139/85; PULSE 104; RESP 18; TEMP 36.6; O2SAT 99; BMI 20.9
--- NOTE | 2023-01-31 00:52 | EX.ED.DYSGE1 ---
HPI History of Present Illness Chief Complaint: Burn Informant: patient Narrative Narrative: Patient is a 22-year-old male with past medical history of cerebral palsy. He states that he was playing in an [id number] football game a few days ago when he got jammed running a wheel route. He states that he felt pain as soon as he was jammed but was able to continue playing. He states he also developed some burn to the same area. He reports he has been doing [id number] creams without much relief and secondary to this wanted to be evaluated make sure he did not cause any type of internal injury. [facility] Medical History Cerebral palsy Herniated lumbar disc without myelopathy Migraines Home Medications lidocaine-hyaluronic ac-aloe vera-collagen 2 % topical spray gel 1 spray topical TID PRN pain #120 mL 01/31/23 [Rx Last Taken Unknown] Allergy/AdvReac Type Severity Reaction Status Date / Time latex Allergy Hives Verified 01/31/23 00:20 adhesive tape AdvReac Rash Verified 01/31/23 00:20 Surgical History History of appendectomy Social History Smoking Status: Never smoker alcohol intake: never substance use type: does not use ROS ROS ED Constitutional Constitutional ED: Denies chills or fever(s) ENT ENT ED: Denies sore throat Cardiovascular Cardiovascular: Denies chest pain Respiratory/Chest Respiratory/Chest: Denies cough or dyspnea Gastrointestinal Gastrointestinal: Denies abdominal pain, diarrhea, nausea or vomiting Genitourinary Genitourinary ED: Denies dysuria Musculoskeletal Musculoskeletal: Reports other Details: Positive right thigh/knee pain Integumentary Reports other Details: Positive sunburn ; Denies rash Neurologic Neurologic: Denies headache(s) Hematologic/Lymphatic Hematologic/Lymphatic: Denies easy bleeding or easy bruising EXAM Physical Exam Const Vital Signs: 01/31/23 00:21 01/31/23 00:21 Temperature 98 F Temperature Source Temporal Pulse Rate 104 H Respiratory Rate 18 Respiratory Effort Normal Blood Pressure 139/85 H Blood Pressure Mean 103 Pulse Ox 99 Positive well nourished and well developed General Appearance ED: well developed HEENT HEENT Narrative: Normocephalic atraumatic Eyes PERRL and EOMs intact bilaterally Neck supple Resp normal respiratory effort and clear to auscultation bilaterally Cardio regular rate and regular rhythm Extremity Extremity Narrative: Bilateral lower extremities are neurovascularly intact. There is no obvious bony deformity or joint effusion. Patellar tendon is intact and knee ligaments are stable. There is pain to palpation over top the anterior distal aspect of the right quadriceps without deformity noted. There is pain with extension against resistance but no true weakness indicating grade 1 muscular strain. Compartments are soft going against compartment syndrome. Neuro oriented x3 and CN's II-XII intact bilaterally Sensorium / Orientation: alert Psych mental status grossly normal Skin Skin Narrative: Patient has a combination of first and second-degree thermal gaines to the anterior aspect of his bilateral anterior thighs without secondary changes to suggest infection. MDM MDM MDM Narrative Medical decision making narrative: Patient presented to the ER with report of mechanical trauma to the right knee. Differential diagnosis is for patellar tendon injury versus knee ligament such as ACL PCL MCL or LCL injury. By exam there is no ligamentous laxity. He has no derangement to the knee or joint effusion to suggest underlying trauma. There is no deformity to suggest patellar tendon rupture. At this time the patient's been able to ambulate on the joint for multiple days I do not feel an x-ray is warranted. By history and exam he has a grade 1 strain to the quadriceps muscle. This is exacerbated by his sunburn. However as he does not have signs of secondary infection or internal injury/tendon rupture there is no need for further work-up and patient can be discharged home and instructed on symptomatic care. History & Record Review Discussion w/independent historian: Patient Discharge Plan Triage Chief Complaint: Burn ED Provider: Jose Randall Dx/Rx/DC Orders Clinical Impression: Strain of right quadriceps muscle, 1st degree sunburn, Cerebral palsy Instructions: ED First- and Second-Degree Gaines ..., ED Muscle Strain, Extremity Prescriptions: New lidocaine-hyalur ic-vglw-nuor 2 % spray gel 1 spray topical TID PRN (Reason: pain) Qty: 120 0RF Primary Care Provider: Adam Paiz Referrals: Adam Paiz MD [Primary Care Provider] - Disposition Disposition: Home, Self Care
== END 2023-01-31 01:04 | disposition home or self-care (01) ==
PROVIDERS: Emergency Provider Emergency Medicine; PCP Family Medicine; Visit Provider Emergency Medicine
DX: S76.111A Strain of right quadriceps muscle, fascia and tendon, initial encounter (principal); G80.9 Cerebral palsy, unspecified; L55.0 Sunburn of first degree; X58.XXXA Exposure to other specified factors, initial encounter; Y93.61 Activity, american tackle football
CPT/HCPCS: 99282

== ENCOUNTER 2023-03-14 20:58 | Emergency (ER) | payer MEDICAID, SELFPAY ==
[2023-03-14 20:59] VITALS: BP 129/70; PULSE 86; RESP 15; TEMP 36.6; O2SAT 97; BMI 20.4
--- NOTE | 2023-03-14 21:04 | RAD_ITS ---
STUDY: X-RAY - LEFT SHOULDER REASON FOR EXAM: Male, 22 years old. INJURY TECHNIQUE: 4 view(s) of the shoulder. COMPARISON: None. FINDINGS: Normal glenohumeral articulation. Normal acromioclavicular joint. Normal acromion. Normal humeral head and visualized proximal humerus. The soft tissue structures are unremarkable. Normal visualized pulmonary apex. RAD/Shoulder min 2 Views IMPRESSION: Normal x-ray examination of the shoulder. Electronically Signed: Adam Mcallister MD at 21:26 EDT ,
--- NOTE | 2023-03-14 22:19 | EX.ED.UPPERE ---
HPI History of Present Illness Chief Complaint: Upper Extremity Injury Informant: patient Narrative Narrative: Complains of left shoulder pain. Patient was playing wheelchair football on Sunday. He only is in a wheelchair for sports. Other than that he walks around without the chair. He states he is not sure if he hit into somebody or somebody's chair hitting the shoulder but he did collide with somebody. Shoulder on the left was pulled back a bit. Its been sore ever since. If he does overhead motion he will sometimes get some popping and clicking. No numbness tingling or weakness. He took Motrin and that does help. But he is just concerned because it several days later and it still bothering him. No other injuries or areas of pain. No numbness or tingling distally. No chest pain or trouble breathing. [facility] Medical History Cerebral palsy Herniated lumbar disc without myelopathy Migraines Home Medications lidocaine-hyaluronic ac-aloe vera-collagen 2 % topical spray gel 1 spray topical TID PRN pain #120 mL 01/31/23 [Rx Last Taken Unknown] Allergy/AdvReac Type Severity Reaction Status Date / Time latex Allergy Hives Verified 03/14/23 21:01 adhesive tape AdvReac Rash Verified 03/14/23 21:01 Surgical History History of appendectomy Social History Smoking Status: Never smoker alcohol intake: never substance use type: does not use ROS ROS ED Constitutional Constitutional ED: Denies chills, fever(s) or subjective Cardiovascular Cardiovascular: Denies chest pain or palpitations Respiratory/Chest Respiratory/Chest: Denies cough or dyspnea Gastrointestinal Gastrointestinal: Denies nausea or vomiting Musculoskeletal Musculoskeletal: Reports other Details: See history of present illness. ; Denies back pain, myalgias or neck pain Integumentary Denies abscess, Abrasions or rash Neurologic Neurologic: Denies paresthesias or weakness Hematologic/Lymphatic Hematologic/Lymphatic: Denies easy bleeding or easy bruising Allergic/Immunologic Allergic/Immunologic ED: Denies urticaria EXAM Physical Exam Narrative Exam Narrative: : Patient sitting calmly in the bed in no acute distress. Carries on normal conversation. HEENT: Shows no sign of trauma. Cardiorespiratory shows easy unlabored breathing normal heart rate. Saturations are normal at 97% on room air showing no hypoxia. Abdomen is nontender. Extremities there is no deformity. He actually has pretty good range of motion of his left shoulder including behind his back. There is some mild nonfocal tenderness. No real AC joint tenderness or swelling. The shoulder does not seem swollen bruised or abraded. Is not warm. No tenderness along the clavicle. No tenderness along the scapula. He does has more pain with reaching forward and abduction especially as he gets overhead. 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 Const Vital Signs: 03/14/23 20:59 Temperature 97.8 F Temperature Source Temporal Pulse Rate 86 Respiratory Rate 15 Blood Pressure 129/70 H Blood Pressure Mean 89 Pulse Ox 97 Oxygen Delivery Method Room Air MDM MDM MDM Narrative Medical decision making narrative: My independent interpretation the patient's 4 view x-ray of his left shoulder shows no acute fracture or dislocation. Included portions of the chest show no acute abnormality or pneumothorax. No abnormal calcifications. Final reading by radiology is normal x-ray examination of the shoulder. Patient will continue Motrin as needed. Ice. I will give him a sling. I stated he can use this as he did want 1. But he needs to come out of it at least 6-8 times a day for range of motion. I demonstrated good exercises for range of motion. If he develops any worsening symptoms pain new symptoms or concerns he should return. If it is still bothering him in a couple weeks it may be worth repeat x-ray. This is likely rotator cuff type strain from the injury. Radiography Diagnostic Testing: Clinical Impression(s) from Imaging Studies Shoulder X-Ray 03/14/23 21:04 IMPRESSION: Normal x-ray examination of the shoulder. Electronically Signed: Adam Mcallister MD at 21:26 EDT , Discharge Plan Triage Chief Complaint: Upper Extremity Injury ED Provider: Boris Beckford Dx/Rx/DC Orders Clinical Impression: Rotator cuff arthropathy of left shoulder, Contusion of left shoulder Instructions: ED Shoulder Sprain Prescriptions: No Action lidocaine-hyalur [id number]-umnm 2 % spray gel 1 spray topical TID PRN (Reason: pain) Qty: 120 0RF Primary Care Provider: Adam Paiz Referrals: Adam Paiz MD [Primary Care Provider] - 10-14 Days if not better Activity Restrictions/Additional Instructions: Only use sling for a few days. During that time you need to come out of the sling at least 6-8 times a day and do range of motion as demonstrated Disposition Disposition: Home, Self Care
== END 2023-03-14 22:43 | disposition home or self-care (01) ==
LOC: ED 22:30
PROVIDERS: Emergency Provider Emergency Medicine; PCP Family Medicine; Visit Provider Emergency Medicine
DX: S40.012A Contusion of left shoulder, initial encounter (principal); X58.XXXA Exposure to other specified factors, initial encounter
CPT/HCPCS: 73030; 99283

== ENCOUNTER 2023-07-07 00:13 | Emergency (ER) | payer MEDICAID, SELFPAY ==
[2023-07-07 00:16] VITALS: BP 147/87; PULSE 79; RESP 16; TEMP 36.1; O2SAT 98; BMI 20.5
[2023-07-07] MEDS: Ondansetron ODT 4 MG Tablet PO (00:53)
[2023-07-07 00:59] LABS: Mucous, Urine 0 SEEN /hpf (<or=2+); Red Blood Cells-Urine 0 SEEN /hpf (0-5); Squamous Epithelial Cells - UA 0 SEEN /hpf (0-5); White Blood Cells 0 SEEN /hpf (0-5)
[2023-07-07 01:01] LABS: Color, Urine Yellow (Yellow); Glucose, Dipstick Normal (Normal); Ketone-Dipstick 50 mg/dl (Negative); Leukocyte Esterase-Dipstick Negative /ul (Negative); Nitrite-Dipstick Negative (Negative); Occult Blood-Urine Negative /ul (Negative); Protein-Dipstick 15 mg/dl (Negative); Specific Gravity, Urine 1.015 (1.002-1.030); Urine Bilirubin Dipstick Negative (Negative); Urine Clarity Cloudy (Clear); Urine Urobilinogen 1 mg/dl (Normal)
--- OUTSIDE RECORDS SUMMARY | 2023-07-07 01:04 | XMS RPT_ITS | CCD ---
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 [facility] Start: 08-01-2019 End: 08-01-2019 Treatment 08/01/2019 Treatment Rehabilitation Zara Osborne, [facility] Start: 07-29-2019 End: 07-29-2019 Treatment [facility] Start: 07-25-2019 End: 07-25-2019 Treatment 07/25/2019 Treatment Rehabilitation Zara Osborne [facility] Start: 07-22-2019 End: 07-22-2019 Treatment 07/22/2019 Treatment Rehabilitation Zara Osborne [facility] Start: 07-18-2019 End: 07-18-2019 Treatment 07/18/2019 Treatment Rehabilitation Zara Osborne [facility] Start: 07-15-2019 End: 07-15-2019 Treatment 07/15/[address], PT [facility] Start: 07-11-2019 End: 07-11-2019 Treatment 07/11/2019 Treatment Rehabilitation Zara Osborne [facility] Start: 07-09-2019 End: 07-09-2019 Treatment 07/09/2019 Treatment Rehabilitation Lexa Stephens MD [address] [place] [address] [phone] Zara Osborne [facility] Start: 07-08-2019 End: 07-08-2019 Treatment 07/08/[address], [facility] Start: 06-19-2019 End: 06-19-2019 Office Visit 06/19/2019 Office Visit Physical Medicine and Rehabilitation Lexa Stephens MD [address] [place] [address] [phone] Dao Matthews MD [address] [place] [address] [phone] [facility] Start: 06-10-2019 End: 06-10-2019 Evaluation 06/10/2019 Evaluation Rehabilitation Lexa Stephens MD [address] [place] [address] [phone], [facility] Start: 05-30-2019 End: 05-30-2019 Evaluation 05/30/2019 Evaluation Rehabilitation Lexa Stephens MD [address] [place] [address] [address] [place] [address] [phone], [facility] Start: 02-09-2019 Influenza vaccination given SEQUENTIAL INFLUENZA VACCINE (#1) [facility] Start: 02-09-2018 Influenza vaccination given SEQUENTIAL INFLUENZA VACCINE (#1) [facility] Start: 04-02-2017 End: 04-02-[address] [facility] Work Phone: Start: 2016 HEPATITIS C SCREENING HEPATITIS C SCREENING [facility] Start: 2016 Hepatitis C screening Hepatitis C Screening [facility] Start: 2016 HIV SCREENING HIV SCREENING [facility] Start: 05-12-2015 End: 05-12-2015 Radex clavicle complete X-Ray, Clavicle [facility] Work Phone: Start: 2014 Meningococcal B Vaccine: Consider Based On Risk (1 of 2 - Patient Seeks Protection) Meningococcal B Vaccine: Consider Based On Risk (1 of 2 - Patient Seeks Protection) [facility] Start: 2013 Vaccination for human papillomavirus HPV VACCINES (1 - Male 3-dose series) [facility] Start: 2012 PEDS TO ADULT TRANSITION ANNUAL ASSESSMENT PEDS TO ADULT TRANSITION ANNUAL ASSESSMENT [facility] Start: 2010 Adult depression screening assessment DEPRESSION SCREENING [facility] Start: 2010 PEDS TO ADULT TRANSITION INITIAL DISCUSSION PEDS TO ADULT TRANSITION INITIAL DISCUSSION [facility] Start: 2009 HPV VACCINE (1 - Male 2-dose series) HPV VACCINE (1 - Male 2-dose series) [facility] Start: 2009 HPV Vaccines (1 - Male 2-dose series) HPV Vaccines (1 - Male 2-dose series) [facility] Start: 2009 Vaccination for human papillomavirus HPV VACCINES (1 - Male 2-dose series) [facility] Start: 2008 MENINGOCOCCAL B: Consider based on risk (1 of 2 - Risk Bexsero 2-dose series) MENINGOCOCCAL B: Consider based on risk (1 of 2 - Risk Bexsero 2-dose series) [facility] Start: 2007 HPV VACCINE (1 - Male 2-dose series) HPV VACCINE (1 - Male 2-dose series) [facility] Start: 04-01-2004 Varicella vaccination Varicella Vaccines (1 of 2 - 2-dose childhood series) [facility] Start: 2003 COVID-19 VACCINE (#1) COVID-19 VACCINE (#1) [facility] Start: 2003 COVID-19 VACCINE (1) COVID-19 VACCINE (1) [facility] Start: 2001 History and physical examination, annual for health maintenance Wellness Visit [facility] Start: 1998 COVID-19 VACCINE (#1) COVID-19 VACCINE (#1) [facility] Start: 1998 HIV screening HIV Screening [facility] Start: 1998 Lipid panel Lipid Panel [facility] Start: 1998 Tetanus vaccination TETANUS EVERY 10 YR [facility] Start: 1998 Yearly Adult Physical Yearly Adult Physical [facility] [place] [facility] [place] [facility] 06/01/2019 2:59 AM EST [facility] End: 02-07-2019 S. pyogenes Org specific cx Ql (Throat) Strep A Culture, Throat Microbiology BARRY Once for 1 Occurrences starting 02/07/2019 until 02/07/2019, 1 completed [facility] Immunizations Immunization Date Immunization Notes Care Provider Tomas zuluaga 2019 diphtheria, tetanus toxoids and acellular pertussis vaccine, unspecified formulation [facility] 2019 Seasonal, quadrivale nt, recombinant, injectable influenza vaccine, preservative free [facility] 2019 tetanus toxoid, redu arleth diphtheria toxoid, and acellular pertussis vaccine, adsorbed [facility] 2019 flu vac qv 2019,18yr up,rc,PF, (FLUBLOK QUAD) syringe [facility] 2019 influenza virus vacc ine, unspecified formulation Yamila Torres MD Work Phone: [facility] 12-24-2015 meningococcal polysaccharide (groups A, C, Y and W-135) diphtheria toxoid conjugate vaccine (MCV4P) [facility] 03-04-2004 measles, mumps and rubella virus vaccine Geremias Layla DO Work Phone: [facility] 03-04-2004 poliovirus vaccine, inactivated Geremias Layla DO Work Phone: [facility] 03-04-2003 diphtheria, tetanus toxoids and acellular pertussis vaccine, unspecified formulation Geremias Layla DO Work Phone: [facility] 07-10-2001 diphtheria, tetanus toxoids and acellular pertussis vaccine, unspecified formulation Geremias Layla DO Work Phone: [facility] 07-10-2001 hepatitis B vaccine, pediatric or pediatric/adolescent dosage Geremias Layla DO Work Phone: [facility] 07-10-2001 poliovirus vaccine, inactivated Geremias Layla DO Work Phone: [facility] 07-11-2000 diphtheria, tetanus toxoids and acellular pertussis vaccine, unspecified formulation Geremias Layla DO Work Phone: [facility] 07-11-2000 hepatitis B vaccine, pediatric or pediatric/adolescent dosage Geremias Layla DO Work Phone: [facility] 07-11-2000 poliovirus vaccine, inactivated Geremias Layla DO Work Phone: [facility] 09-29-1999 diphtheria, tetanus toxoids and acellular pertussis vaccine, unspecified formulation Geremias Layla DO Work Phone: [facility] 09-29-1999 haemophilus influenz ae type b conjugate and Hepatitis B vaccine Geremias Layla DO Work Phone: [facility] 09-29-1999 measles, mumps and rubella virus vaccine Geremias Layla DO Work Phone: [facility] 09-29-1999 trivalent poliovirus vaccine, live, oral Geremias Layla DO Work Phone: [facility] Payers Date Payer Category Payer Medicaid [id number] 2021 Unknown [facility] CARES PINK[employer] 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 2018 Medicaid [id number] 2018 Medicaid [employer] MEDICA[employer] xxxxxxxxxxx 2018-Present xxxxxxxxxxx [id number] 2017 Medicaid [employer] [id number] 2017-Present [phone] [address] [place] [address] Medicaid [id number] 2017 Medicaid [id number] 1998 Unknown [id number] 1998 Unknown [id number] [id number] 1998 Unknown [id number] [id number] 1998 Unknown [id number] 2.16.840.1.100934.3.579.2.297 1998 Unknown [id number] [id number] 1998 Unknown [id number] 2.16.840.1.318398.3.579.2.903 1998 Unknown [id number] 2.16.840.1.039703.3.579.2.903 1998 Unknown [id number] 2.16.840.1.573795.3.579.2.903 1998 Unknown [id number] 2.16.840.1.143490.3.579.2.903 1998 Unknown [id number] 2.16.840.1.388290.3.579.2.903 1998 Unknown [id number] 2.16.840.1.514841.3.579.2.903 1998 Unknown [id number] 2.16.840.1.039802.3.579.2.903 1998 Unknown [id number] 2.16.840.1.143310.3.579.2.903 1998 Unknown [id number] 2.16.840.1.313715.3.579.2.903 1998 Unknown [id number] 2.16.840.1.038535.3.579.2.903 1998 Unknown [id number] 2.16.840.1.135623.3.579.2.903 1998 Unknown [id number] 2.16.840.1.537076.3.579.2.903 1998 Unknown [id number] 2.16.840.1.090823.3.579.2.903 1998 Unknown [id number] [id number] Unknown 1976 [id number] Social History Date Type Detail Facility Start: 10-06-2018 End: 05-10-2023 Tobacco smoking status NHIS Never smoker [facility] Start: 10-06-2018 End: 2019 History SDOH Alcohol Frequency 1 [facility] Start: 1998 Sex Assigned At Not on file [facility] Start: 02-07-2019 End: 05-31-2019 Alcohol intake Lifetime non-drinker (finding) [facility] Start: 10-30-2019 History SDOH Physica l Activity DPW 5 [facility] Start: 10-30-2019 History SDOH Physica l Activity MPS 4 [facility] Start: 09-04-2021 End: 05-10-2023 Exposure to SARS-CoV-2 (event) Not sure [facility] Start: 11-17-2020 End: 03-05-2023 Alcohol intake Current non-drinker of alcohol (finding) [facility] Start: 01-09-2018 End: 05-10-2023 Tobacco use and exposure Smokeless tobacco non-user [facility] consumption unknown [facility] Start: 03-05-2023 End: 05-10-2023 History of Social function [facility] Start: 03-05-2023 End: 05-10-2023 Tobacco use panel [facility] Retired 07/10/2019 P HQ Score 0 [facility] Functional Status Date Assessment Result Facility 09-30-2021 Functional Status [facility] 09-30-2021 Functional Status [facility] Mental Status Date Assessment Result Facility 09-30-2021 Mental Status [facility] 09-30-2021 Mental Status [facility] Clinical Notes 07-30-2020 to 05-10-2023 Marcy Galeas PA-C - 05/10/2023 1:57 AM Mary Kay Galeas PA-C - 05/10/2023 1:57 AM Rodolfo Ellison MD - 03/05/2023 1:50 PM EDTAlicia Isidro APRN.[facility] - 12/05/2022 4:52 PM EDT Note Date & Type Note Facility 05-10-2023 Emergency department Note HPI Chief Complaint Patient presents with Shoulder Injury I slipped on the ice about an hour ago , I hurt my right shoulder and right wrist , denies loc 22-year-old male with a history of cerebral palsy presenting to the ED today with right shoulder pain and right wrist pain after a fall a few hours ago. Patient states he was walking out to his car, slipped on the ice and as he was falling he landed on the back of his right shoulder and tried to brace his fall with his wrist. He denies hitting his head or LOC or use of blood thinners. He states he does not have any pain to the neck or back, just his shoulder and wrist are hurting him. He did not take anything for pain before coming to the ER. He denies chest pain or shortness of breath, cough, nausea or vomiting. He denies any abdominal pain. He does not have a headache and he did not injure anything else when he fell. No further complaints at this time. He states that he does have chronic issues with this shoulder and wrist due to being in a wheelchair with repetitive movement as well as bowling. History provided by: Patient No data recorded Patient History History reviewed. No pertinent past medical history. History reviewed. No pertinent surgical history. No family history on file. Social History Tobacco Use Smoking status: Never Smokeless tobacco: Never Vaping Use Vaping Use: Never used Substance Use Topics Alcohol use: Not on file Drug use: Never Physical Exam ED Triage Vitals [05/10/23 0151] Temp Heart Rate Resp BP 36.5 C (97.7 F) 105 16 (!) 150/96 SpO2 Temp Source Heart Rate Source Patient Position 96 % Tympanic Monitor Sitting BP Location FiO2 (%) Left arm -- Physical Exam Constitutional: General: He is not in acute distress. Appearance: Normal appearance. He is not toxic-appearing. HENT: Head: Normocephalic and atraumatic. Eyes: Conjunctiva/sclera: Conjunctivae normal. Cardiovascular: Rate and Rhythm: Normal rate and regular rhythm. Pulses: Normal pulses. Heart sounds: Normal heart sounds. Comments: Distal pulses intact and symmetric, cap refill less than 2 seconds Pulmonary: Effort: Pulmonary effort is normal. Breath sounds: Normal breath sounds. Musculoskeletal: Cervical back: Normal range of motion and neck supple. Comments: No scalp or facial bony tenderness or signs of bony deformity. No midline tenderness, paraspinal tenderness, step-offs or signs of trauma throughout the cervical, thoracic and lumbar spines. Tenderness on palpation towards the posterior aspect of the right shoulder without obvious dislocation or deformity. Tenderness along the medial aspect of the right wrist with mild swelling but no crepitus or obvious deformity or dislocation. FROM right shoulder and right wrist with pain reproduced on ROM. No tenderness throughout the rest of the right upper extremity, negative anatomic snuffbox tenderness. NVI Skin: General: Skin is warm. Capillary Refill: Capillary refill takes less than 2 seconds. Neurological: Mental Status: He is alert and oriented to person, place, and time. ED Course & MDM Diagnoses as of 05/10/23 0258 Acute pain of right shoulder Wrist sprain, right, initial encounter Medical Decision Making 22-year-old male with history of cerebral palsy presenting to the ED today with right shoulder and right wrist pain after he slipped on ice outside tonight and fell. There was no head injury or LOC and he is on a blood thinner. He has no neck or back pain or chest pain from the fall, he is only endorsing right shoulder and wrist pain but states he has chronic pain in these areas from using wheelchair and bowling. No further associated complaints and he arrives afebrile, hypertensive and mildly tachycardic. On exam he is resting comfortably however and has no signs of acute distress. GCS of 15, he is interacting appropriately. On my exam heart RRR, lungs are clear and chest wall is nontender and atraumatic. He does has full range of motion to the right upper extremity with some pain reproduced to the shoulder and wrist on ROM. No obvious dislocation or deformity but he is tender along the medial aspect of the right wrist, the lateral/posterior aspect of the right shoulder. No edema or crepitus or ecchymosis. he is otherwise neurologically neurovascular intact and there is no further signs of trauma on exam. X-rays were ordered as well as naproxen as patient states this medication works well for his pain. X-rays of the right wrist and right shoulder show no acute osseous abnormality. On reassessment patient is resting comfortably. I did discuss these results with him, diagnosis and treatment plan. He is safe for discharge home at this time. Patient would like some naproxen to go home with as he states this does help his pain. I did discuss the need for follow-up as well and he expressed understanding and agreed with the plan of care today. Labs Reviewed - No data to display XR shoulder right 2+ views Final Result No acute osseous abnormality. MACRO: None Signed by: Stephanie Emery 05/10/2023 2:55 AM Dictation workstation: [id number] XR wrist right 3+ views Final Result No acute osseous abnormality. MACRO: None Signed by: Stephanie Emery 05/10/2023 2:54 AM Dictation workstation: [id number] Procedure Procedures Marcy Galeas PA-C 05/10/23 0301 documented in this encounter [facility] Work Phone: 05-10-2023 Physician Emergency department Note HPI Chief Complaint Patient presents with Shoulder Injury I slipped on the ice about an hour ago , I hurt my right shoulder and right wrist , denies loc 22-year-old male with a history of cerebral palsy presenting to the ED today with right shoulder pain and right wrist pain after a fall a few hours ago. Patient states he was walking out to his car, slipped on the ice and as he was falling he landed on the back of his right shoulder and tried to brace his fall with his wrist. He denies hitting his head or LOC or use of blood thinners. He states he does not have any pain to the neck or back, just his shoulder and wrist are hurting him. He did not take anything for pain before coming to the ER. He denies chest pain or shortness of breath, cough, nausea or vomiting. He denies any abdominal pain. He does not have a headache and he did not injure anything else when he fell. No further complaints at this time. He states that he does have chronic issues with this shoulder and wrist due to being in a wheelchair with repetitive movement as well as bowling. History provided by: Patient No data recorded Patient History History reviewed. No pertinent past medical history. History reviewed. No pertinent surgical history. No family history on file. Social History Tobacco Use Smoking status: Never Smokeless tobacco: Never Vaping Use Vaping Use: Never used Substance Use Topics Alcohol use: Not on file Drug use: Never Physical Exam ED Triage Vitals [05/10/23 0151] Temp Heart Rate Resp BP 36.5 C (97.7 F) 105 16 (!) 150/96 SpO2 Temp Source Heart Rate Source Patient Position 96 % Tympanic Monitor Sitting BP Location FiO2 (%) Left arm -- Physical Exam Constitutional: General: He is not in acute distress. Appearance: Normal appearance. He is not toxic-appearing. HENT: Head: Normocephalic and atraumatic. Eyes: Conjunctiva/sclera: Conjunctivae normal. Cardiovascular: Rate and Rhythm: Normal rate and regular rhythm. Pulses: Normal pulses. Heart sounds: Normal heart sounds. Comments: Distal pulses intact and symmetric, cap refill less than 2 seconds Pulmonary: Effort: Pulmonary effort is normal. Breath sounds: Normal breath sounds. Musculoskeletal: Cervical back: Normal range of motion and neck supple. Comments: No scalp or facial bony tenderness or signs of bony deformity. No midline tenderness, paraspinal tenderness, step-offs or signs of trauma throughout the cervical, thoracic and lumbar spines. Tenderness on palpation towards the posterior aspect of the right shoulder without obvious dislocation or deformity. Tenderness along the medial aspect of the right wrist with mild swelling but no crepitus or obvious deformity or dislocation. FROM right shoulder and right wrist with pain reproduced on ROM. No tenderness throughout the rest of the right upper extremity, negative anatomic snuffbox tenderness. NVI Skin: General: Skin is warm. Capillary Refill: Capillary refill takes less than 2 seconds. Neurological: Mental Status: He is alert and oriented to person, place, and time. ED Course & MDM Diagnoses as of 05/10/23 0258 Acute pain of right shoulder Wrist sprain, right, initial encounter Medical Decision Making 22-year-old male with history of cerebral palsy presenting to the ED today with right shoulder and right wrist pain after he slipped on ice outside tonight and fell. There was no head injury or LOC and he is on a blood thinner. He has no neck or back pain or chest pain from the fall, he is only endorsing right shoulder and wrist pain but states he has chronic pain in these areas from using wheelchair and bowling. No further associated complaints and he arrives afebrile, hypertensive and mildly tachycardic. On exam he is resting comfortably however and has no signs of acute distress. GCS of 15, he is interacting appropriately. On my exam heart RRR, lungs are clear and chest wall is nontender and atraumatic. He does has full range of motion to the right upper extremity with some pain reproduced to the shoulder and wrist on ROM. No obvious dislocation or deformity but he is tender along the medial aspect of the right wrist, the lateral/posterior aspect of the right shoulder. No edema or crepitus or ecchymosis. he is otherwise neurologically neurovascular intact and there is no further signs of trauma on exam. X-rays were ordered as well as naproxen as patient states this medication works well for his pain. X-rays of the right wrist and right shoulder show no acute osseous abnormality. On reassessment patient is resting comfortably. I did discuss these results with him, diagnosis and treatment plan. He is safe for discharge home at this time. Patient would like some naproxen to go home with as he states this does help his pain. I did discuss the need for follow-up as well and he expressed understanding and agreed with the plan of care today. Labs Reviewed - No data to display XR shoulder right 2+ views Final Result No acute osseous abnormality. MACRO: None Signed by: Stephanie Emery 05/10/2023 2:55 AM Dictation workstation: [id number] XR wrist right 3+ views Final Result No acute osseous abnormality. MACRO: None Signed by: Stephanie Emery 05/10/2023 2:54 AM Dictation workstation: [id number] Procedure Procedures Marcy Galeas PA-C 05/10/23 0301 [facility] Work Phone: 03-05-2023 Note HNO ID: [id number] Author: Rodolfo Nicholson MD Service: ? Author Type: Physician Type: Progress Notes Filed: 03/05/2023 2:05 PM Note Text: Patient presents with: Pain: Chronic widespread pain, worsened x1 week HPI: Body pain: Duration: flared up 1 week Location: all over, upper and lower body Character: cramping and tightness Radiation: Aggravating: doing wheelchair rugby Relieving: stretching Pain relievers: Tylenol Associated: CP Pertinent negatives: Denies fever, chills, joint pain MEDICATIONS: No prescriptions on file. ALLERGIES: ALLERGIES Allergen Reactions Latex Rash VITALS: BP 123/72 Pulse 65 Temp 36.3 ?C (97.3 ?F) Resp 18 Wt 54.3 kg (119 lb 12.8 oz) SpO2 99% BMI 18.76 kg/m? PE: Pleasant, in no acute distress. Atrophic lower extremities. No point tenderness of muscles. ASSESSMENT/PLAN: 1. Muscle aches - ICD9: 729.1, ICD10: M79.10 Occasional muscle relaxer use has helped with pains he attributes to CP in the past. - TIZANIDINE 4 MG TABLET He has been getting care mostly through the ED and [facility] the last few years. Schedule follow up with PCP. Rodolfo Nicholson MD [facility] 03-05-2023 History of Presen t illness Narrative Patient presents with: Pain: Chronic widespread pain, worsened x1 week HPI: Body pain: Duration: flared up 1 week Location: all over, upper and lower body Character: cramping and tightness Radiation: Aggravating: doing wheelchair rugby Relieving: stretching Pain relievers: Tylenol Associated: CP Pertinent negatives: Denies fever, chills, joint pain MEDICATIONS: No prescriptions on file. ALLERGIES: ALLERGIES Allergen Reactions Latex Rash VITALS: BP 123/72 Pulse 65 Temp 36.3 C (97.3 F) Resp 18 Wt 54.3 kg (119 lb 12.8 oz) SpO2 99% BMI 18.76 kg/m PE: Pleasant, in no acute distress. Atrophic lower extremities. No point tenderness of muscles. ASSESSMENT/PLAN: 1. Muscle aches - ICD9: 729.1, ICD10: M79.10 Occasional muscle relaxer use has helped with pains he attributes to CP in the past. - TIZANIDINE 4 MG TABLET He has been getting care mostly through the ED and [facility] the last few years. Schedule follow up with PCP. Rodolfo Nicholson MD documented in this encounter [facility] 12-05-2022 Note HNO ID: [id number] Author: Alicia Isidro APRN.[employer]ICER Service: ? Author Type: Nurse Practitioner Type: Progress Notes Filed: 12/05/2022 5:08 PM Note Text: CC: Patient presents with: Cough: Cough and congestion x 1 week HPI: Jez Haider is a 22 year old male who presents to the office with complaint of head congestion and cough, nonproductive for a week. Symptoms are staying the same. Associated symptoms includes nasal congestion. Denies fever, nausea, vomiting , and diarrhea. Treatments tried include finishing up amoxicillin for strep throat and Tessalon Perles. With no relief of symptoms. Sick contacts: unknown. History of asthma, frequent episodes of bronchitis, chronic bronchitis, bronchiectasis or COPD: No Smoker: No Seasonal/environmental allergies: No The ROS is otherwise negative. The patient's pmh, medications, allergies, and past visits are reviewed. PHYSICAL EXAM: BP 122/70 Pulse 99 Temp 36.3 ?C (97.4 ?F) (Tympanic) Resp 18 Wt 53.3 kg (117 lb 9.6 oz) SpO2 98% BMI 18.42 kg/m? General appearance: alert, cooperative, pleasant, in no acute distress Head: Normocephalic Eyes: EOM's intact, conjunctiva pink and moist, no icterus, sclera white, non-injected Heart: Negative. RRR without obvious murmur, gallop, or rubs. No ectopy. Lungs: clear to auscultation, without rales or wheeze, good air exchange PAST MEDICAL HISTORY Diagnosis Date Cerebral palsy (HCC) PAST SURGICAL HISTORY Procedure Laterality Date LEG SURGERY HX x4 S TENDON - ACHILLES Bilateral 01/30/2018 [facility] ALLERGIES Latex MEDICATIONS tiZANidine (ZANAFLEX) 4 mg tablet Take 4 mg by mouth every 6 hours as needed. dicyclomine (BENTYL) 10 mg capsule Take by mouth. meloxicam (MOBIC) 15 mg tablet Take by mouth. naproxen (NAPROSYN) 500 mg tablet Take by mouth. omeprazole (PRILOSEC) 20 mg capsule Take by mouth. amitriptyline (ELAVIL) 10 mg tablet Take 1-2 tablets by mouth daily at bedtime. (Patient not taking: Reported on 02/06/2022) FAMILY HISTORY Problem Relation Age of Onset None Father None Mother Cancer Maternal Grandmother throat Alzheimer's Disease Maternal Grandmother None Sister None Brother None Brother None Brother None Brother None Sister None Sister None Sister Social History Tobacco Use Smoking status: Never Smokeless tobacco: Never Substance Use Topics Alcohol use: No Drug use: No ASSESSMENT/PLAN: 1. Acute cough - ICD9: 786.2, ICD10: R05.1 Patient's medication was not adjusted at this time. Patient was educated to follow-up if signs and symptoms seem to be eating worse not better. Patient was okay with this care plan. Alicia Isidro APRN.MYLA Prescription instructions reviewed with patient as applicable. Potential red flag symptoms discussed with the patient. Reviewed appropriate action plan to take if red flag symptoms occur. Patient agreeable to treatment plan. Alicia Isidro APRN.MYLA [facility] 12-05-2022 History of Presen t illness Narrative CC: Patient presents with: Cough: Cough and congestion x 1 week HPI: Jez Haider is a 22 year old male who presents to the office with complaint of head congestion and cough, nonproductive for a week. Symptoms are staying the same. Associated symptoms includes nasal congestion. Denies fever, nausea, vomiting , and diarrhea. Treatments tried include finishing up amoxicillin for strep throat and Tessalon Perles. With no relief of symptoms. Sick contacts: unknown. History of asthma, frequent episodes of bronchitis, chronic bronchitis, bronchiectasis or COPD: No Smoker: No Seasonal/environmental allergies: No The ROS is otherwise negative. The patient's pmh, medications, allergies, and past visits are reviewed. PHYSICAL EXAM: BP 122/70 Pulse 99 Temp 36.3 C (97.4 F) (Tympanic) Resp 18 Wt 53.3 kg (117 lb 9.6 oz) SpO2 98% BMI 18.42 kg/m General appearance: alert, cooperative, pleasant, in no acute distress Head: Normocephalic Eyes: EOM's intact, conjunctiva pink and moist, no icterus, sclera white, non-injected Heart: Negative. RRR without obvious murmur, gallop, or rubs. No ectopy. Lungs: clear to auscultation, without rales or wheeze, good air exchange PAST MEDICAL HISTORY Diagnosis Date Cerebral palsy (HCC) PAST SURGICAL HISTORY Procedure Laterality Date LEG SURGERY HX x4 S TENDON - ACHILLES Bilateral 01/30/2018 [facility] ALLERGIES Latex MEDICATIONS tiZANidine (ZANAFLEX) 4 mg tablet Take 4 mg by mouth every 6 hours as needed. dicyclomine (BENTYL) 10 mg capsule Take by mouth. meloxicam (MOBIC) 15 mg tablet Take by mouth. naproxen (NAPROSYN) 500 mg tablet Take by mouth. omeprazole (PRILOSEC) 20 mg capsule Take by mouth. amitriptyline (ELAVIL) 10 mg tablet Take 1-2 tablets by mouth daily at bedtime. (Patient not taking: Reported on 02/06/2022) FAMILY HISTORY Problem Relation Age of Onset None Father None Mother Cancer Maternal Grandmother throat Alzheimer's Disease Maternal Grandmother None Sister None Brother None Brother None Brother None Brother None Sister None Sister None Sister Social History Tobacco Use Smoking status: Never Smokeless tobacco: Never Substance Use Topics Alcohol use: No Drug use: No ASSESSMENT/PLAN: 1. Acute cough - ICD9: 786.2, ICD10: R05.1 Patient's medication was not adjusted at this time. Patient was educated to follow-up if signs and symptoms seem to be eating worse not better. Patient was okay with this care plan. Alicia Isidro APRN.CNP Prescription instructions reviewed with patient as applicable. Potential red flag symptoms discussed with the patient. Reviewed appropriate action plan to take if red flag symptoms occur. Patient agreeable to treatment plan. Alicia Isidro APRN.MYLA documented in this encounter [facility] 11-13-2022 Emergency department Note Patient discharged in no noted distress with script to his pharmacy and PCP follow up. Lenka Kumar RN 11/13/22 1335 [facility] 11-13-2022 Emergency department Note Patient discharged in no noted distress with script to his pharmacy and PCP follow up. Lenka Kumar RN 11/13/22 1335 EMERGENCY DEPARTMENT ENCOUNTER Pt Name: Jez Haider Birthdate 2000 Date of evaluation: 11/13/2022 ED Provider: Yamila Torres MD CHIEF COMPLAINT Chief Complaint Patient presents with Abdominal Pain Onset 3am across abdomen, denies nausea HISTORY OF PRESENT ILLNESS (Location/Symptom, Timing/Onset, Context/Setting, Quality, Duration, Modifying Factors, Severity) Note limiting factors. I wore appropriate PPE for the entirety of this encounter. HPI Jez Haider is a 22 y.o. male who presents to the emergency department with chief complaint of abdominal pain. Patient states he is having epigastric pain that wraps around to his right flank. History of cerebral palsy and prior appendectomy. He states he has intermittent pain but this was more severe. Denies prior gallbladder pathology or kidney stones or infections. Denies any lower abdominal pain fevers chills nausea vomiting states he has been eating well normal urination and bowel movements. Nursing Notes were reviewed. Limitations to history: None Outside historians: None REVIEW OF SYSTEMS Review of Systems Constitutional: Negative for chills and fever. HENT: Negative for ear pain and sore throat. Eyes: Negative for pain and visual disturbance. Respiratory: Negative for cough and shortness of breath. Cardiovascular: Negative for chest pain and palpitations. Gastrointestinal: Positive for abdominal pain. Negative for vomiting. Genitourinary: Positive for flank pain. Negative for dysuria and hematuria. Musculoskeletal: Negative for arthralgias and back pain. Skin: Negative for color change and rash. Neurological: Negative for seizures and syncope. All other systems reviewed and are negative. Pertinent positives and negatives as per HPI. PAST MEDICAL HISTORY History reviewed. No pertinent past medical history. SURGICAL HISTORY History reviewed. No pertinent surgical history. CURRENT MEDICATIONS Previous Medications No medications on file ALLERGIES Patient has no known allergies. FAMILY HISTORY No family history on file. SOCIAL HISTORY Social History Socioeconomic History Marital status: Single SCREENINGS PHYSICAL EXAM ED Triage Vitals [11/13/22 1051] Temp Heart Rate Resp BP 36.3 C (97.4 F) 68 16 (!) 145/78 SpO2 Temp Source Heart Rate Source Patient Position 99 % Oral -- -- BP Location FiO2 (%) -- -- Physical Exam Vitals and nursing note reviewed. Constitutional: General: He is not in acute distress. Appearance: He is well-developed. HENT: Head: Normocephalic and atraumatic. Mouth/Throat: Mouth: Mucous membranes are moist. Pharynx: Oropharynx is clear. Eyes: Conjunctiva/sclera: Conjunctivae normal. Cardiovascular: Rate and Rhythm: Normal rate and regular rhythm. Heart sounds: No murmur heard. Pulmonary: Effort: Pulmonary effort is normal. No respiratory distress. Breath sounds: Normal breath sounds. Abdominal: Palpations: Abdomen is soft. There is no hepatomegaly, splenomegaly or pulsatile mass. Tenderness: There is abdominal tenderness in the right upper quadrant and epigastric area. There is no right CVA tenderness or left CVA tenderness. Musculoskeletal: General: No swelling. Cervical back: Neck supple. Skin: General: Skin is warm and dry. Capillary Refill: Capillary refill takes less than 2 seconds. Findings: No rash. Neurological: General: No focal deficit present. Mental Status: He is alert and oriented to person, place, and time. Psychiatric: Mood and Affect: Mood normal. DIAGNOSTIC RESULTS Procedures/EKG: EKG was reviewed by myself. Physician EKG interpretation can be found in [facility] RADIOLOGY (Per Emergency Physician): Interpretation per the Radiologist below, if available at the time of this note: No orders to display ED BEDSIDE ULTRASOUND: Performed by ED Physician - none LABS: Labs Reviewed CBC WITH AUTO DIFFERENTIAL - Abnormal Result Value Auto WBC 4.8 RBC 4.83 Hemoglobin 14.6 Hematocrit 44.3 MCV 91.7 MCH 30.2 MCHC 33.0 RDW 12.3 Platelets 181 MPV 11.3 Neutrophils Relative 65.9 Lymphocytes Relative 25.9 Monocytes Relative 6.8 Eosinophils Relative 0.6 (*) Basophils Relative 0.6 Immature Grans % 0.2 (*) Neutrophils Absolute 3.2 Lymphocytes Absolute 1.3 Monocytes Absolute 0.3 Eosinophils Absolute 0.0 Basophils Absolute 0.0 Immature Grans Absolute 0.0 COMPREHENSIVE METABOLIC PANEL - Abnormal SODIUM 139 POTASSIUM 4.0 CHLORIDE 106 CARBON DIOXIDE 29 ANION GAP 4 UREA NITROGEN 16 CREATININE 0.72 GLUCOSE 103 (*) CALCIUM 9.4 AST (SGOT) 20 ALT 13 ALKALINE PHOSPHATASE 70 ALBUMIN 4.5 BILIRUBIN, TOTAL 0.4 TOTAL PROTEIN 7.5 eGFR >90.0 COMPLETE URINALYSIS - Abnormal Color, Urine Light Yellow Clarity, Urine Clear pH, Urine 6.5 Leukocytes, Urine Negative Nitrite, Urine Negative Protein, Urine Negative Glucose, Urine Normal Bilirubin, Urine Negative Ketones, Urine Negative Urobilinogen, Urine 2 (*) Blood, Urine Negative Volume, Urine 12 mL SPECIFIC GRAVITY OF URINE (NUMERIC) 1.023 LIPASE - Normal LIPASE 85 COMPLETE URINALYSIS WITH REFLEX TO CULTURE Narrative: The following orders were created for panel order Urinalysis complete with reflex to Culture. Procedure Abnormality Status --------- ------ Complete Urinalysis[[id number]] Abnormal Final result Please view results for these tests on the individual orders. All other labs were within normal range or not returned as of this dictation. EMERGENCY DEPARTMENT COURSE and DIFFERENTIAL DIAGNOSIS/MDM: Vitals: Vitals: 11/13/22 1051 BP: (!) 145/78 Pulse: 68 Resp: 16 Temp: 36.3 C (97.4 F) TempSrc: Oral SpO2: 99% Weight: 54.4 kg (120 lb) 22-year-old male presenting with epigastric right upper quadrant and right flank pain. Differential includes cholecystitis pancreatitis kidney stone kidney infection. Plan CBC CMP lipase urinalysis, treatment with Bentyl and reassessment. Diagnoses as of 11/13/22 1240 Generalized abdominal pain The patient presented with chief complaint of abd pain. The differential diagnosis associated with this patient's presentation includes above. Our workup consisted of ordering/reviewing: above. Diagnostic tests considered but not performed: ct abd pelvis -prior appendectomy and currently over the low suspicion for acute cholecystitis or obstructing kidney stone Patient is in agreement with this plan. Patient's care was impacted by cerebral palsy. Medications dicyclomine (Bentyl) capsule 10 mg (10 mg Oral Given 11/13/22 1155) REVAL: Labs are reviewed by me and with the patient. No leukocytosis electrolyte imbalance renal dysfunction transaminitis normal lipase negative urinalysis. Patient feeling improved and tolerating p.o. benign abdominal exam will give Bentyl prescription and follow-up with PCP. Return precautions given. CRITICAL CARE TIME None CONSULTS: None PROCEDURES: Unless otherwise noted below, none Procedures Patients symptoms are consistent with sepsis, severe sepsis, or septic shock (If yes use .sepsiscoremeasure ): no FINAL IMPRESSION 1. Generalized abdominal pain DISPOSITION Discharge 11/13/2022 12:39:01 PM PATIENT REFERRED TO: [place] [id number] Schedule an appointment as soon as possible for a visit DISCHARGE MEDICATIONS: New Prescriptions DICYCLOMINE (BENTYL) 20 MG TABLET Take 1 tablet (20 mg) by mouth 3 times daily as needed (abdominal pain) for up to 5 days. (Comment: Please note this report has been produced using speech recognition software and may contain errors related to that system including errors in grammar, punctuation, and spelling, as well as words and phrases that may be inappropriate. If there are any questions or concerns please feel free to contact the dictating provider for clarification.) Yamila Torres MD (electronically signed) Emergency Medicine Provider Yamila Torres MD 11/13/22 1240 documented in this encounter [facility] 11-13-2022 Physician Emergency department Note EMERGENCY DEPARTMENT ENCOUNTER Pt Name: Jez Haider Birthdate 2000 Date of evaluation: 11/13/2022 ED Provider: Yamila Torres MD CHIEF COMPLAINT Chief Complaint Patient presents with Abdominal Pain Onset 3am across abdomen, denies nausea HISTORY OF PRESENT ILLNESS (Location/Symptom, Timing/Onset, Context/Setting, Quality, Duration, Modifying Factors, Severity) Note limiting factors. I wore appropriate PPE for the entirety of this encounter. HPI Jez Haider is a 22 y.o. male who presents to the emergency department with chief complaint of abdominal pain. Patient states he is having epigastric pain that wraps around to his right flank. History of cerebral palsy and prior appendectomy. He states he has intermittent pain but this was more severe. Denies prior gallbladder pathology or kidney stones or infections. Denies any lower abdominal pain fevers chills nausea vomiting states he has been eating well normal urination and bowel movements. Nursing Notes were reviewed. Limitations to history: None Outside historians: None REVIEW OF SYSTEMS Review of Systems Constitutional: Negative for chills and fever. HENT: Negative for ear pain and sore throat. Eyes: Negative for pain and visual disturbance. Respiratory: Negative for cough and shortness of breath. Cardiovascular: Negative for chest pain and palpitations. Gastrointestinal: Positive for abdominal pain. Negative for vomiting. Genitourinary: Positive for flank pain. Negative for dysuria and hematuria. Musculoskeletal: Negative for arthralgias and back pain. Skin: Negative for color change and rash. Neurological: Negative for seizures and syncope. All other systems reviewed and are negative. Pertinent positives and negatives as per HPI. PAST MEDICAL HISTORY History reviewed. No pertinent past medical history. SURGICAL HISTORY History reviewed. No pertinent surgical history. CURRENT MEDICATIONS Previous Medications No medications on file ALLERGIES Patient has no known allergies. FAMILY HISTORY No family history on file. SOCIAL HISTORY Social History Socioeconomic History Marital status: Single SCREENINGS PHYSICAL EXAM ED Triage Vitals [11/13/22 1051] Temp Heart Rate Resp BP 36.3 C (97.4 F) 68 16 (!) 145/78 SpO2 Temp Source Heart Rate Source Patient Position 99 % Oral -- -- BP Location FiO2 (%) -- -- Physical Exam Vitals and nursing note reviewed. Constitutional: General: He is not in acute distress. Appearance: He is well-developed. HENT: Head: Normocephalic and atraumatic. Mouth/Throat: Mouth: Mucous membranes are moist. Pharynx: Oropharynx is clear. Eyes: Conjunctiva/sclera: Conjunctivae normal. Cardiovascular: Rate and Rhythm: Normal rate and regular rhythm. Heart sounds: No murmur heard. Pulmonary: Effort: Pulmonary effort is normal. No respiratory distress. Breath sounds: Normal breath sounds. Abdominal: Palpations: Abdomen is soft. There is no hepatomegaly, splenomegaly or pulsatile mass. Tenderness: There is abdominal tenderness in the right upper quadrant and epigastric area. There is no right CVA tenderness or left CVA tenderness. Musculoskeletal: General: No swelling. Cervical back: Neck supple. Skin: General: Skin is warm and dry. Capillary Refill: Capillary refill takes less than 2 seconds. Findings: No rash. Neurological: General: No focal deficit present. Mental Status: He is alert and oriented to person, place, and time. Psychiatric: Mood and Affect: Mood normal. DIAGNOSTIC RESULTS Procedures/EKG: EKG was reviewed by myself. Physician EKG interpretation can be found in [facility] RADIOLOGY (Per Emergency Physician): Interpretation per the Radiologist below, if available at the time of this note: No orders to display ED BEDSIDE ULTRASOUND: Performed by ED Physician - none LABS: Labs Reviewed CBC WITH AUTO DIFFERENTIAL - Abnormal Result Value Auto WBC 4.8 RBC 4.83 Hemoglobin 14.6 Hematocrit 44.3 MCV 91.7 MCH 30.2 MCHC 33.0 RDW 12.3 Platelets 181 MPV 11.3 Neutrophils Relative 65.9 Lymphocytes Relative 25.9 Monocytes Relative 6.8 Eosinophils Relative 0.6 (*) Basophils Relative 0.6 Immature Grans % 0.2 (*) Neutrophils Absolute 3.2 Lymphocytes Absolute 1.3 Monocytes Absolute 0.3 Eosinophils Absolute 0.0 Basophils Absolute 0.0 Immature Grans Absolute 0.0 COMPREHENSIVE METABOLIC PANEL - Abnormal SODIUM 139 POTASSIUM 4.0 CHLORIDE 106 CARBON DIOXIDE 29 ANION GAP 4 UREA NITROGEN 16 CREATININE 0.72 GLUCOSE 103 (*) CALCIUM 9.4 AST (SGOT) 20 ALT 13 ALKALINE PHOSPHATASE 70 ALBUMIN 4.5 BILIRUBIN, TOTAL 0.4 TOTAL PROTEIN 7.5 eGFR >90.0 COMPLETE URINALYSIS - Abnormal Color, Urine Light Yellow Clarity, Urine Clear pH, Urine 6.5 Leukocytes, Urine Negative Nitrite, Urine Negative Protein, Urine Negative Glucose, Urine Normal Bilirubin, Urine Negative Ketones, Urine Negative Urobilinogen, Urine 2 (*) Blood, Urine Negative Volume, Urine 12 mL SPECIFIC GRAVITY OF URINE (NUMERIC) 1.023 LIPASE - Normal LIPASE 85 COMPLETE URINALYSIS WITH REFLEX TO CULTURE Narrative: The following orders were created for panel order Urinalysis complete with reflex to Culture. Procedure Abnormality Status --------- ------ Complete Urinalysis[[id number]] Abnormal Final result Please view results for these tests on the individual orders. All other labs were within normal range or not returned as of this dictation. EMERGENCY DEPARTMENT COURSE and DIFFERENTIAL DIAGNOSIS/MDM: Vitals: Vitals: 11/13/22 1051 BP: (!) 145/78 Pulse: 68 Resp: 16 Temp: 36.3 C (97.4 F) TempSrc: Oral SpO2: 99% Weight: 54.4 kg (120 lb) 22-year-old male presenting with epigastric right upper quadrant and right flank pain. Differential includes cholecystitis pancreatitis kidney stone kidney infection. Plan CBC CMP lipase urinalysis, treatment with Bentyl and reassessment. Diagnoses as of 11/13/22 1240 Generalized abdominal pain The patient presented with chief complaint of abd pain. The differential diagnosis associated with this patient's presentation includes above. Our workup consisted of ordering/reviewing: above. Diagnostic tests considered but not performed: ct abd pelvis -prior appendectomy and currently over the low suspicion for acute cholecystitis or obstructing kidney stone Patient is in agreement with this plan. Patient's care was impacted by cerebral palsy. Medications dicyclomine (Bentyl) capsule 10 mg (10 mg Oral Given 11/13/22 1154) REVAL: Labs are reviewed by me and with the patient. No leukocytosis electrolyte imbalance renal dysfunction transaminitis normal lipase negative urinalysis. Patient feeling improved and tolerating p.o. benign abdominal exam will give Bentyl prescription and follow-up with PCP. Return precautions given. CRITICAL CARE TIME None CONSULTS: None PROCEDURES: Unless otherwise noted below, none Procedures Patients symptoms are consistent with sepsis, severe sepsis, or septic shock (If yes use .sepsiscoremeasure ): no FINAL IMPRESSION 1. Generalized abdominal pain DISPOSITION Discharge 11/13/2022 12:39:01 PM PATIENT REFERRED TO: [facility] [address] [address] Schedule an appointment as soon as possible for a visit DISCHARGE MEDICATIONS: New Prescriptions DICYCLOMINE (BENTYL) 20 MG TABLET Take 1 tablet (20 mg) by mouth 3 times daily as needed (abdominal pain) for up to 5 days. (Comment: Please note this report has been produced using speech recognition software and may contain errors related to that system including errors in grammar, punctuation, and spelling, as well as words and phrases that may be inappropriate. If there are any questions or concerns please feel free to contact the dictating provider for clarification.) Yamila Torres MD (electronically signed) Emergency Medicine Provider Yamila Torres MD 11/13/22 1240 [facility] 04-05-2022 Miscellaneous Notes Received ED summary for abd pain from [facility]. Placed in provider's inbox for review. Route to MA scanning. documented in this encounter [facility] 04-03-2022 Miscellaneous Notes Received ED summary and xray for fall from [facility]. Placed in provider's inbox for review. Route to MA scanning. documented in this encounter [facility] 03-27-2022 Miscellaneous Notes Received ED summary and chest x ray imgage report from [facility]. Placed in provider's inbox for review. Route to MA scanning. documented in this encounter [facility] 03-06-2022 History of Presen t illness Narrative 03/06/2022 Patient presents with: Sore Throat: Body aches, fatigue x2 days SUBJECTIVE: This is a 21 year old that is here today for Complaint(s) of sore throat x 2 days. Associated fatigue and body aches. Occasional cough. Notes some intermittent . + nasal congestion and drainage. Denies fever/chill, GAY, vomiting, diarrhea. Patient seen in ER last evening and had a negative strep. PAST MEDICAL HISTORY Diagnosis Date Cerebral palsy (HCC) ALLERGIES Latex MEDICATIONS Current Outpatient Medications Medication Sig tiZANidine (ZANAFLEX) 4 mg tablet Take 4 mg by mouth every 6 hours as needed. dicyclomine (BENTYL) 10 mg capsule Take by mouth. meloxicam (MOBIC) 15 mg tablet Take by mouth. naproxen (NAPROSYN) 500 mg tablet Take by mouth. omeprazole (PRILOSEC) 20 mg capsule Take by mouth. amitriptyline (ELAVIL) 10 mg tablet Take 1-2 tablets by mouth daily at bedtime. (Patient not taking: Reported on 02/06/2022) No current facility-administered medications for this visit. SOCIAL HISTORY Social History Tobacco Use Smoking status: Never Smokeless tobacco: Never Substance Use Topics Alcohol use: No Drug use: No REVIEW OF SYSTEMS See HPI OBJECTIVE: BP 130/82 Pulse 88 Temp 36.1 C (97 F) Resp 18 Wt 55.2 kg (121 lb 9.6 oz) SpO2 97% BMI 19.05 kg/m APPEARANCE Well appearing, alert, in no acute distress, well-hydrated, well nourished. EYES PERRLA, conjunctiva and sclera normal. EARS External ears normal, canals clear. TMs normal KEISHA NOSE/SINUS Nares normal. Septum midline. Mucosa normal. No drainage or sinus tenderness. THROAT+ posterior pharyngeal erythema, no exudate. Uvuvla midline. NECK Supple, no adenopathy; thyroid without nodule or mass, no TTP. HEART RRR with normal S1 and S2 LUNG clear to auscultation, No wheezing, rhonchi, rales. ASSESSMENT/PLAN: 1. Sore throat - ICD9: 462, ICD10: J02.9 - Alere Strep Test negative, no culture pending - Discussed supportive care treatment with fluids, rest and analgesia. - The patient may also use OTC cough and cold meds as needed, warm salt water gargles, throat lozenges and/or OTC throat spray as needed, and nasal saline gtts and suction prn. - The patient should follow up in 3-5 days if symptoms persist or worsen - Call back if drooling, increased temperature, symptoms of dehydration and/or still sick in one week - 2019 CORONAVIRUS The patient indicates understanding of these issues and agrees with the plan. Reviewed red flags and when to seek care sooner. Nirmala Bloom PA-C documented in this encounter [facility] 02-06-2022 History of Presen t illness Narrative Images from the original note were not included. Subjective HPI HPI Jez Haider is a 21 year old male who presents today for CC of itching, rash. This started 5 days ago. Has tried nothing for relief. Symptoms are worsened by nothing. 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 Denies fever. .Patient presents with: Rash: all over, itching x 5 days PAST MEDICAL HISTORY Diagnosis Date Cerebral palsy (HCC) PAST SURGICAL HISTORY Procedure Laterality Date LEG SURGERY HX x4 S TENDON - ACHILLES Bilateral 01/30/2018 [facility] ALLERGIES Latex MEDICATIONS dicyclomine (BENTYL) 10 mg capsule Take by mouth. meloxicam (MOBIC) 15 mg tablet Take by mouth. naproxen (NAPROSYN) 500 mg tablet Take by mouth. omeprazole (PRILOSEC) 20 mg capsule Take by mouth. triamcinolone acetonide (KENALOG) 0.1 % cream Apply 1 application to affected area three times daily for 10 days. Apply sparingly to area for rash/itching. amitriptyline (ELAVIL) 10 mg tablet Take 1-2 tablets by mouth daily at bedtime. (Patient not taking: Reported on 02/06/2022) FAMILY HISTORY Problem Relation Age of Onset None Father None Mother Cancer Maternal Grandmother throat Alzheimer's Disease Maternal Grandmother None Sister None Brother None Brother None Brother None Brother None Sister None Sister None Sister Social History Tobacco Use Smoking status: Never Smokeless tobacco: Never Substance Use Topics Alcohol use: No Drug use: No ROS Objective Blood pressure 124/70, pulse 78, temperature 36.6 C (97.8 F), resp. rate 16, weight 54 kg (119 lb), SpO2 96 %. Physical Exam Constitutional: General: He is not in acute distress. Appearance: He is not toxic-appearing or diaphoretic. HENT: Head: Normocephalic and atraumatic. Pulmonary: Effort: Pulmonary effort is normal. No accessory muscle usage or respiratory distress. Skin: Neurological: Mental Status: He is alert and oriented to person, place, and time. ASSESSMENT/PLAN: 1. Rash - ICD9: 782.1, ICD10: R21 Contact dermatitis -use medication as prescribed -follow up if symptoms persist, worsen, change - TRIAMCINOLONE ACETONIDE 0.1 % TOPICAL CREAM Agrees to plan Basilio Valdez APRN.MYLA documented in this encounter [facility] 02-01-2022 Miscellaneous Notes Received ED summary and labs abd pain from [facility]. Placed in provider's inbox for review. Route to MA scanning. documented in this encounter [facility] 01-31-2022 History of Presen t illness Narrative Patient came in with complains of severe abdominal pain. Patients is visible uncomfortable. Said he has an 9/10 pain. Unable to sit still. Was seen two days ago at the ER and given bentyl with no testing done such as scans since he has no appendix he said. Patient was instructed to seek medical attention at a different ER for a full evaluation. Patient and partner were okay with this suggestion. She will drive him to the ER. documented in this encounter [facility] 01-13-2022 Miscellaneous Notes Received 01/13/2022 from [facility] Physical therapy. Placed in provider's inbox for review. Route to MA scanning Rehabilitation Services discharge summary documented in this encounter [facility] 11-18-2021 Miscellaneous Notes Received 11/18/2021 from [facility] Rehabilitation services. Placed in provider's inbox for review. Route to MA for scanning documented in this encounter [facility] 10-27-2021 Miscellaneous Notes Received ED summary from [facility]. Placed in provider's inbox for review. Route to MA scanning. documented in this encounter [facility] 09-30-2021 Hospital Discharg e instructions Patient Education 09/30/2021 21:35:36 Foot Sprain Foot Sprain A sprain is a stretching or tearing of the ligaments that hold a joint together. There are usually no broken bones. Sprains generally take from 3 to 6 weeks to heal. A sprain may be treated with a splint, walking cast, or special boot. Mild sprains may not need any additional support. Home care The following guidelines will help you care for your injury at home: Keep your leg elevated when sitting or lying down. This is very important during the first 48 hours to reduce swelling. Stay off the injured foot as much as possible until you can walk on it without pain. If needed, you may use crutches during the first week for this purpose. Crutches can be rented at many pharmacies or surgical/orthopedic supply stores. You may be given a cast shoe to wear to prevent movement in your foot. If not, you can use a sandal or any shoe that does not put pressure on the injured area until the swelling and pain go away. If using a sandal, be careful not to hit your foot against anything, since another injury could make the sprain worse. Apply an ice pack over the injured area for 15 to 20 minutes every 3 to 6 hours. You should do this for the first 24 to 48 hours. You can make an ice pack by filling a plastic bag that seals at the top with ice cubes and then wrapping it with a thin towel. Continue to use ice packs for relief of pain and swelling as needed. As the ice melts, try not to get the wrap, splint, or cast wet. After 48 hours, apply heat from a warm shower or bath for 20 minutes several times daily. Alternating ice and heat may also be helpful. You may use [id number] pain medicine to control pain, unless another medicine was prescribed. If you have chronic liver or kidney disease or ever had a stomach ulcer or gastrointestinal bleeding, talk with your healthcare provider before using these medicines. If you were given a splint or cast, keep it dry. Bathe with your splint or cast well out of the water, protected with 2 large plastic bags, sealed with tape or rubber-bands at the top end. If a fiberglass splint or cast gets wet, you can dry it with a anthropology department chair on cool setting. You may return to sports after healing, when you can run without pain. Follow-up care Follow up with your healthcare provider as directed. Sometimes fractures don t show up on the first X-ray. Bruises and sprains can sometimes hurt as much as a fracture. These injuries can take time to heal completely. If your symptoms don t improve or they get worse, talk with your healthcare provider. You may need a repeat X-ray or other tests. When to seek medical advice Call your healthcare provider right away if any of these occur: The plaster cast or splint gets wet or soft The fiberglass cast or splint gets wet and does not dry for 24 hours Pain or swelling increases, or redness appears A bad odor comes from within the cast Fever of 100.4 F (38 C) or above lasting for 24 to 48 hours, or as advised Chills Toes on the injured foot become cold, blue, numb, or tingly [phone] [employer]. [address] [place] [address]. All rights reserved. This information is not intended as a substitute for professional medical care. Always follow your healthcare professional's instructions. Follow Up Care 09/30/2021 21:18:59 With:MIRI MCMAHON, ANANYA MONTENEGRO Address: [address] [place] [address] [place] [address]- [phone] When:2-4 days [facility] 05-20-2021 Hospital Discharg e instructions Patient Education 05/20/2021 00:20:13 Head Injury (Adult) Head Injury (Adult) You have a head injury. It does not appear serious at this time. But symptoms of a more serious problem, such as a mild brain injury (concussion) or bruising or bleeding in the brain, may appear later. For this reason, you or someone caring for you will need to watch for the symptoms listed below. Once you re home, also be sure to follow any care instructions you re given. Home care Watch for the following symptoms Seek emergency medical care if you have any of these symptoms over the next hours to days: Headache Nausea or vomiting Dizziness Sensitivity to light or noise Unusual sleepiness or grogginess Trouble falling asleep Personality changes Vision changes Memory loss Confusion Trouble walking or clumsiness Loss of consciousness (even for a short time) Inability to be awakened Stiff neck Weakness or numbness in any part of the body Seizures General care If you were prescribed medicines for pain, use them as directed. Note: Don t take other medicines for pain without talking to your provider first. To help reduce swelling and pain, apply a cold source to the injured area for up to 20 minutes at a time. Do this as often as directed. Use a cold pack or bag of ice wrapped in a thin towel. Never apply a cold source directly to the skin. If you have cuts or scrapes as a result of your head injury, care for them as directed. For the next 24 hours (or longer, if instructed): oDon t drink alcohol or use sedatives or other medicines that make you sleepy. oDon t drive or operate machinery. oDon t do anything strenuous, such as heavy lifting or straining. oLimit tasks that require concentration. This includes reading, using a smartphone or computer, watching TV, and playing video games. oDon t return to sports or other activities that could result in another head injury. Follow-up care Follow up with your healthcare provider, or as directed. If imaging tests were done, they will be reviewed by a doctor. You will be told the results and any new findings that may affect your care. When to seek medical advice Call your healthcare provider right away if any of these occur: Pain doesn t get better or worsens New or increased swelling or bruising Fever of 100.4 F (38 C) or higher, or as directed by your provider Increased redness, warmth, drainage, or bleeding from the injured area Fluid drainage or bleeding from the nose or ears Any depression or bony abnormality in the injured area Persistent confusion or lethargy Bruising behind the ears or bruising around the eyes [id number] [employer]. [address] [place] [address]. All rights reserved. This information is not intended as a substitute for professional medical care. Always follow your healthcare professional's instructions. Follow Up Care 05/19/2021 23:59:32 With:Your Doctor Address: When:2-4 days [facility] 11-17-2020 Note HNO ID: [id number] Author: Amilcar Hernandez APRN.REAL ESTATE UTILIZATION OFFICER Service: ? Author Type: Nurse Practitioner Type: Progress Notes Filed: 11/17/2020 10:35 PM Note Text: Subjective The history is provided by the patient. Back Pain This is a chronic problem. The current episode started more than 1 week ago. The problem occurs constantly. The problem has been rapidly improving. The pain is present in the lumbar spine. The quality of the pain is described as stabbing, shooting and aching. The pain is at a severity of 5/10. The pain is moderate. The symptoms are aggravated by bending. Associated symptoms include leg pain. Pertinent negatives include no chest pain, no headaches, no bowel incontinence, no perianal numbness, no dysuria, no tingling and no weakness. Treatments tried: Bilateral transforaminal injection. The treatment provided significant relief. Review of Systems Eyes: Negative for blurred vision. Respiratory: Negative for shortness of breath. Cardiovascular: Negative for chest pain and leg swelling. Gastrointestinal: Negative for bowel incontinence, constipation, diarrhea, nausea and vomiting. Genitourinary: Negative for dysuria. Musculoskeletal: Positive for back pain. Skin: Positive for itching. Neurological: Negative for dizziness, tingling, weakness and headaches. Endo/Heme/Allergies: Does not bruise/bleed easily. Psychiatric/Behavioral: Negative for depression and suicidal ideas. PAST MEDICAL HISTORY Diagnosis Date - Cerebral palsy (HCC) PAST SURGICAL HISTORY Procedure Laterality Date - LEG SURGERY HX x4 - S TENDON - ACHILLES Bilateral 01/30/2018 [facility] FAMILY HISTORY Problem Relation Age of Onset - None Father - None Mother - Cancer Maternal Grandmother throat - Alzheimer's Disease Maternal Grandmother - None Sister - None Brother - None Brother - None Brother - None Brother - None Sister - None Sister - None Sister Social History Tobacco Use - Smoking status: Never Smoker - Smokeless tobacco: Never Used Substance Use Topics - Alcohol use: No - Drug use: No Current Meds amitriptyline (ELAVIL) 10 mg tablet Take 1-2 tablets by mouth daily at bedtime. Objective Ht 170.2 cm (5' 7 ) Wt 57.2 kg (126 lb) BMI 19.73 kg/m? Physical Exam INPATIENT TELEPHONE VISIT PROGRESS NOTE SERVICE DATE: 11/17/2020 SERVICE TIME: 1:45 Jez Haider has consented to this telephone encounter. Persons Present: patient Chief Complaint/Reason: follow up injection HPI: see above Data Reviewed: No new labs Assessment and Plan I had a nice discussion with the patient today about their current pain and the pathology that could be causing it. We discussed different treatment options. Our plan will be as follows: --injection was extremely beneficial patient reports 70% relief. --I recommended further injection as the patient had significant relief however he has still reduced quality of life. --Recommended the patient continue with home exercise plan 1. Lumbar radiculopathy - PRE-CERT ORDER (AG) 2. DDD (degenerative disc disease), lumbosacral - PRE-CERT ORDER (AG) I spent 11-20 minutes minutes providing this service. The patient or patient?s international representative consented to this telephone encounter. I reviewed all pertinent data. SIGNATURE: Amilcar Hernandez APRN.REAL ESTATE UTILIZATION OFFICER PATIENT NAME: Jez Haider DATE: November 17, 2020 TIME: 1:53 PM [facility] 11-02-2020 Note HNO ID: [id number] Author: Fatemeh Soares LPN Service: ? Author Type: LICENSED NURSE Type: Progress Notes Filed: 11/02/2020 12:55 PM Note Text: Dressing dry and intact. No drainage noted. The patient denies numbness, tingling, weakness, shortness of breath, dizziness, or headache. Pain level 0/10. Vital signs within normal limits. Patient given discharge instructions and escorted to transportation via ambulatory method. Patient left in good condition. Fatemeh Soares LPN [facility] 11-02-2020 Note HNO ID: [id number] Author: Yves Nguyen MD Service: ? Author Type: Physician Type: Procedures Filed: 11/02/2020 12:46 PM Note Text: HPI Jez Haider is a 20 year old male who presents with pain here for intervention Review of Systems REVIEW OF SYTEMS: Systemic Symptoms: Negative except as noted. Head Symptoms: Negative except as noted. Pulmonary Symptoms: Negative except as noted. Other ROS: Negative except as noted. Cardiovascular Symptoms: Negative except as noted. Gastrointestinal Symptoms: Negative except as noted. Genitourinary Symptoms: Negative except as noted. Neurological Symptoms: Negative except as noted. Endocrine Symptoms: Negative except as noted. Hematologic Symptoms: No History of Easy Bleeding. No History of Bruising. Musculoskeletal Symptoms: Negative except as noted. Skin Symptoms: Negative except as noted. Psychiatric Symptoms: Not feeling depressed. Not thinking about suicide. PAST MEDICAL HISTORY Diagnosis Date - Cerebral palsy (HCC) PAST SURGICAL HISTORY Procedure Laterality Date - LEG SURGERY HX x4 - S TENDON - ACHILLES Bilateral 01/30/2018 [facility] Family History Problem Relation Age of Onset - None Father - None Mother - Cancer Maternal Grandmother throat - Alzheimer's Disease Maternal Grandmother - None Sister - None Brother - None Brother - None Brother - None Brother - None Sister - None Sister - None Sister Social History Tobacco Use - Smoking status: Never Smoker - Smokeless tobacco: Never Used Substance Use Topics - Alcohol use: No - Drug use: No Current Outpatient Medications Medication Sig Dispense Refill - tiZANidine (ZANAFLEX) 4 mg tablet Take 1 tablet by mouth every 8 hours as needed (muscle spasms). 90 tablet 4 - meloxicam (MOBIC) 15 mg tablet Take 1 tablet by mouth once daily as needed for Pain. 30 tablet 4 - amitriptyline (ELAVIL) 10 mg tablet Take 1-2 tablets by mouth daily at bedtime. 60 tablet 0 Current Facility-Administered Medications Medication Dose Route Frequency Provider Last Rate Last Admin - dexAMETHasone sodium phosphate (PF) 10 mg injection (DECADRON) 10 mg OTHER ONCE Yves Nguyen MD - lidocaine (PF) 10 mg/mL (1 %) 80 mg injection (XYLOCAINE) 8 mL OTHER ONCE Yves Nguyen MD - iohexol 900 mg IV injection (OMNIPAQUE 300) 3 mL INTRATHECAL ONCE Yves Nguyen MD - NaCl (PF) 0.9% 3 mL injection 3 mL OTHER ONCE Yves Nguyen MD Objective Constitutional: Normal Good Appearance Oriented to Time, Place and Person Skin: Normal Examination of The Skin Eyes: Normal Examination of The Eyes Anicteric, EOMI ENT: Normal Lung Exam: Non-labored respirations Cardiovascular Exam: Normal Heart Rate and Rhythm Abdominal Exam: Normal Examination of the Abdomen Neuro: CN grossly intact Psych: Mood appropriate for given condition Nursing note and vitals reviewed.Time Out to confirm patient name, date of , procedure site, laterality, and allergies performed by physician. Please see nursing note for exact times (time out, procedure start, procedure end). Assessment and Plan I had a nice discussion with the patient today about their current pain and the pathology that could be causing it. We discussed different treatment options. Our plan will be as follows: Encounter Diagnosis ICD-10-CM 1. Lumbar radiculopathy M54.16 INJ TRANSFORAMINAL EPID ANES/STER LS SINGL dexAMETHasone sodium phosphate (PF) 10 mg injection (DECADRON) lidocaine (PF) 10 mg/mL (1 %) 80 mg injection (XYLOCAINE) iohexol 900 mg IV injection (OMNIPAQUE 300) NaCl (PF) 0.9% 3 mL injection Procedure Note Lumbar Transforaminal Epidural Diagnosis: Lumbar radiculopathy (primary encounter diagnosis) Procedure: Lumbar Transforaminal Epidural Steroid Injection The patient was identified in the preoperative area. The procedure was discussed in detail including its risks, benefits, and alternatives. Signed consent was obtained and the patient agreed to proceed. The patient was brought to the [facility] procedure room and positioned in the prone position onto the procedure room table. A pillow was placed below the abdomen to decrease lumbar lordosis and a safety strap was placed across the legs. The lumbosacral region was then exposed, prepped, and draped in the usual sterile fashion using 2% Chloroprep scrub. Under fluoroscopic guidance in the AP, oblique, and lateral views, the BILATERAL S1 foramina were identified. The skin and subcutaneous tissue along the intended needle trajectories were anesthetized with 5 ml of 1% preservative free lidocaine. Once adequate skin anesthesia was obtained, two 25-gauge Quinke needles were advanced into the foramina. Once the desired needle tip location was achieved, the needles were aspirated and were negative for heme and CSF. Then 3mL of Omnipaque constrast dye was injected in divid (more content not included)... [facility] 11-02-2020 Note HNO ID: [id number] Author: Ashley Huddleston MA Service: ? Author Type: Therapeutic Specialist Type: Progress Notes Filed: 11/02/2020 12:46 PM Note Text: Subjective HPI Review of Systems Eyes: Negative for blurred vision and double vision. Respiratory: Negative for shortness of breath. Cardiovascular: Negative for chest pain and leg swelling. Gastrointestinal: Positive for diarrhea. Negative for constipation, nausea and vomiting. Genitourinary: Negative for dysuria. Skin: Negative for itching. Neurological: Negative for dizziness, tingling, weakness and headaches. Endo/Heme/Allergies: Bruises/bleeds easily. Psychiatric/Behavioral: Negative for depression and suicidal ideas. The patient is not nervous/anxious. PAST MEDICAL HISTORY Diagnosis Date - Cerebral palsy (HCC) PAST SURGICAL HISTORY Procedure Laterality Date - LEG SURGERY HX x4 - S TENDON - ACHILLES Bilateral 01/30/2018 [facility] FAMILY HISTORY Problem Relation Age of Onset - None Father - None Mother - Cancer Maternal Grandmother throat - Alzheimer's Disease Maternal Grandmother - None Sister - None Brother - None Brother - None Brother - None Brother - None Sister - None Sister - None Sister Social History Tobacco Use - Smoking status: Never Smoker - Smokeless tobacco: Never Used Substance Use Topics - Alcohol use: No - Drug use: No Current Meds tiZANidine (ZANAFLEX) 4 mg tablet Take 1 tablet by mouth every 8 hours as needed (muscle spasms). meloxicam (MOBIC) 15 mg tablet Take 1 tablet by mouth once daily as needed for Pain. amitriptyline (ELAVIL) 10 mg tablet Take 1-2 tablets by mouth daily at bedtime. Objective Temp 36.7 ?C (98.1 ?F) Ht 170.2 cm (5' 7 ) Wt 57.2 kg (126 lb) BMI 19.73 kg/m? Physical Exam [facility] 11-02-2020 Note Procedure (AGSPINE1) AKBARJEZ ([id number]) 2000 M Date Time Provider Department 11/02/20 12:25 PM YVES [id number] During your visit today, we recorded the following information about you: Temperature Pulse Blood pressure Weight 98.1 degrees 94/minute 159/104 57.2 kg Height 1.702 m Ashley Huddleston MA 11/02/2020 12:46 PM Signed Subjective HPI Review of Systems Eyes: Negative for blurred vision and double vision. Respiratory: Negative for shortness of breath. Cardiovascular: Negative for chest pain and leg swelling. Gastrointestinal: Negative for constipation, diarrhea, nausea and vomiting. Genitourinary: Negative for dysuria. Skin: Negative for itching. Neurological: Negative for dizziness, tingling, weakness and headaches. Endo/Heme/Allergies: Does not bruise/bleed easily. Psychiatric/Behavioral: Negative for depression and suicidal ideas. The patient is not nervous/anxious. PAST MEDICAL HISTORY Diagnosis Date - Cerebral palsy (HCC) PAST SURGICAL HISTORY Procedure Laterality Date - LEG SURGERY HX x4 - S TENDON - ACHILLES Bilateral 01/30/2018 [facility] FAMILY HISTORY Problem Relation Age of Onset - None Father - None Mother - Cancer Maternal Grandmother throat - Alzheimer's Disease Maternal Grandmother - None Sister - None Brother - None Brother - None Brother - None Brother - None Sister - None Sister - None Sister Social History Tobacco Use - Smoking status: Never Smoker - Smokeless tobacco: Never Used Substance Use Topics - Alcohol use: No - Drug use: No Current Meds tiZANidine (ZANAFLEX) 4 mg tablet Take 1 tablet by mouth every 8 hours as needed (muscle spasms). meloxicam (MOBIC) 15 mg tablet Take 1 tablet by mouth once daily as needed for Pain. amitriptyline (ELAVIL) 10 mg tablet Take 1-2 tablets by mouth daily at bedtime. Objective There were no vitals taken for this visit. Physical Exam Ashley Huddleston MA 11/02/2020 12:33 PM Signed Stove Cleaner?s Name: Neri Are you on a blood thinner: no If yes, is a hold required: no Last dose of blood thinner: no INR result today: no Do you require a Lovenox bridge: no Are you a diabetic: no BS result today: no Are you/could you be : no Are you taking Xanax for the procedure: no Are you currently on an antibiotic: no Are you currently on a steroid: no Covid-19 Vaccine: no Ashley Huddleston MA 11/02/2020 12:46 PM Signed Subjective HPI Review of Systems Eyes: Negative for blurred vision and double vision. Respiratory: Negative for shortness of breath. Cardiovascular: Negative for chest pain and leg swelling. Gastrointestinal: Positive for diarrhea. Negative for constipation, nausea and vomiting. Genitourinary: Negative for dysuria. Skin: Negative for itching. Neurological: Negative for dizziness, tingling, weakness and headaches. Endo/Heme/Allergies: Bruises/bleeds easily. Psychiatric/Behavioral: Negative for depression and suicidal ideas. The patient is not nervous/anxious. PAST MEDICAL HISTORY Diagnosis Date - Cerebral palsy (HCC) PAST SURGICAL HISTORY Procedure Laterality Date - LEG SURGERY HX x4 - S TENDON - ACHILLES Bilateral 01/30/2018 [facility] FAMILY HISTORY Problem Relation Age of Onset - None Father - None Mother - Cancer Maternal Grandmother throat - Alzheimer's Disease Maternal Grandmother - None Sister - None Brother - None Brother - None Brother - None Brother - None Sister - None Sister - None Sister Social History Tobacco Use - Smoking status: Never Smoker - Smokeless tobacco: Never Used Substance Use Topics - Alcohol use: No - Drug use: No Current Meds tiZANidine (ZANAFLEX) 4 mg tablet Take 1 tablet by mouth every 8 hours as needed (muscle spasms). meloxicam (MOBIC) 15 mg tablet Take 1 tablet by mouth once daily as needed for Pain. amitriptyline (ELAVIL) 10 mg tablet Take 1-2 tablets by mouth daily at bedtime. Objective Temp 36.7 ?C (98.1 ?F) Ht 170.2 cm (5' 7 ) Wt 57.2 kg (126 lb) BMI 19.73 kg/m? Physical Exam Ashley Huddleston MA 11/02/2020 12:33 PM Signed PROCEDURE DISCHARGE INSTRUCTIONS 11/02/2020 Jez Haider 2000 Physician: Yves Nguyen MD Procedure: Epidural Steroid Injection: Lumbar (transforaminal/Interlaminar/Ca udal) Post Procedure Instructions: If sedation not given, no driving for 3 hours after the procedure., If sedation given, no driving the day of the procedure., Rest the day of the procedure., You may resume normal activities the day after the procedure, as tolerated., Avoid movements that may aggravate pain., Apply cold compresses to injection site if needed., If medically acceptable, take over the counter anti-inflammatories such as ibuprofen or Aleve if needed for post procedure discomfort., No hot baths, hot tubs or hot compresses for 24 hours. and (more content not included)... [facility] 11-02-2020 Note HNO ID: [id number] Author: Ashley Huddleston MA Service: ? Author Type: Therapeutic Specialist Type: Progress Notes Filed: 11/02/2020 12:46 PM Note Text: Subjective HPI Review of Systems Eyes: Negative for blurred vision and double vision. Respiratory: Negative for shortness of breath. Cardiovascular: Negative for chest pain and leg swelling. Gastrointestinal: Negative for constipation, diarrhea, nausea and vomiting. Genitourinary: Negative for dysuria. Skin: Negative for itching. Neurological: Negative for dizziness, tingling, weakness and headaches. Endo/Heme/Allergies: Does not bruise/bleed easily. Psychiatric/Behavioral: Negative for depression and suicidal ideas. The patient is not nervous/anxious. PAST MEDICAL HISTORY Diagnosis Date - Cerebral palsy (HCC) PAST SURGICAL HISTORY Procedure Laterality Date - LEG SURGERY HX x4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 establish with specialist here now in [place] and would also like to be set up with physical therapy as he has been having physical therapy all of his life. Feels as though he is done very well with it. The following portions of the patient's history were reviewed and updated as appropriate: allergies, current medications, past family history, past medical history, past social history, past surgicalhistory and problem list. Patient Active Problem List Diagnosis Spastic diplegic cerebral palsy (HCC) Achilles tendon contracture Past Surgical History: Procedure Laterality Date LEG SURGERY ORTHOPEDIC SURGERY Patient's Medications New Prescriptions No medications on file Previous Medications CYCLOBENZAP-IRRITANT CNTR IRR2 10 MG KIT 10 mg . FLU VAC QV 2019,18YR UP,RC,PF, (FLUBLOK QUAD) SYRINGE Sign this order in conjunction with the immunization order to satisfy [place] Board of Pharmacy Positive ID requirements for immunization orders. . NAPROXEN (NAPROSYN) 125 MG/5 ML SUSPENSION 500 mg . Modified Medications No medications on file Discontinued Medications No medications on file Review of Systems Constitutional: Negative for activity change, appetite change, chills, fever and unexpected weight change. HENT: Negative for congestion and rhinorrhea. Eyes: Negative for visual disturbance. Respiratory: Negative for cough and shortness of breath. Cardiovascular: Negative for chest pain, palpitations and leg swelling. Gastrointestinal: Negative for constipation, diarrhea, nausea and vomiting. Genitourinary: Negative for difficulty urinating and dysuria. Musculoskeletal: Positive for arthralgias. Negative for myalgias. Skin: Negative for rash and wound. Neurological: Negative for dizziness, weakness, light-headedness and numbness. Hematological: Negative for adenopathy. Does not bruise/bleed easily. Psychiatric/Behavioral: Negative for dysphoric mood and sleep disturbance. Physical Exam: BP 110/70 Pulse 82 Resp 16 Ht (P) 5' 7 Wt 52.2 kg (115 lb) SpO2 96% BMI (P) 18.01 kg/m Physical Exam Constitutional: General: He is not in acute distress. HENT: Head: Normocephalic and atraumatic. Right Ear: External ear normal. Left Ear: External ear normal. Eyes: Extraocular Movements: Extraocular movements intact. Conjunctiva/sclera: Conjunctivae normal. Neck: Musculoskeletal: Neck supple. No neck rigidity. Cardiovascular: Rate and Rhythm: Normal rate and regular rhythm. Pulmonary: Effort: Pulmonary effort is normal. Breath sounds: Normal breath sounds. Abdominal: General: There is no distension. Palpations: Abdomen is soft. Musculoskeletal: Normal range of motion. Comments: R ankle: no edema, bruising, erythema. No TTP over either malleoli or midfoot. Has pain over ATFL with inversion. No joint laxity. Skin: General: Skin is warm and dry. Findings: No rash. Neurological: General: No focal deficit present. Mental Status: He is alert. Coordination: Coordination normal. Comments: Occasional nystagmus No data recorded Health Maintenance Due Topic Date Due Wellness Visit 2001 HPV VACCINES (1 - Male 2-dose series) 2009 Goals None * Ting Perdomo LPN - 2019 3:30 PM EST Health Maintenance Due Topic Date Due TETANUS EVERY 10 YR 2000 Wellness Visit 2001 HPV VACCINES (1 - Male 2-dose series) 2009 SEQUENTIAL INFLUENZA VACCINE (1) 02/09/2019 documented in this encounter* Indy Yusuf MA - 06/09/2019 7:31 AM EST Received records from the [facility] that we requested -- place in Dr. Stephens's inbakset for review. documented in this encounter* Ashwin Way, PT - 07/08/2019 4:15 PM EST [facility] T[facility]AT[facility] NOTE Today's Date 07/08/2019 Patient Name: Jez Haider Date of : 2000 Current Visit #: 2 Authorized Visits: 30 Case Name: Cerebral Palsy PT History: Pre-Treatment Pain Scale: 0 Symptoms: stabilized Functional Diagnosis: 1. Spastic diplegic cerebral palsy (HCC) Clinical Information: Subjective: Patient reports no changes since last visit. Feels stretched out currently. Arrived 4 min late to appointment today. Objective Tx Start Time: 421 Tx End Time: 500 L trendelenburg noted with gait Treatments: Physical Therapy Exercise Log - 07/08/19 1626 OTHER Precautions/Contraindications PMHx: CP, h/o hamstring and achilles lengthening surgeries Therapeutic Exercise (78760) Intervention quadruped alt UE lift x10 ea Parameters quadruped alt LE lift x10 ea frequent cueing for proper trunk position, frequently goes into anterior pelvic tilt Intervention quadruped cat/camel x10 Parameters full plank on hands and toes x45 , x25 , x40 tactile cues at abdominals for proper trunk position Intervention sidelying hip abduction x15 keisha Parameters prone hip extension x15 keisha Neuro Re-Ed (97936) Intervention mod SLS at 4 step 2x45 no UE assist VCs for keeping knee extended Parameters step ups 6 step x10-12 keisha no UE assist Intervention amb with black tband at abdomen 2x40' Parameters lateral stepping x40' ea direction Intervention lateral step ups holding 4# med ball 6 step x10 ea Parameters stand and step with RLE holding orange SB L stance limb facilitation at L upper abdominals, scapula, and hip abductors PT Treatment Times Therex Total Time 17 Neuro Re-Ed Total Time 22 Direct Treatment Time 39 Total Treatment Time 39 Goals: Physical Therapy Neuro Goals: Patient will improve SLS to 5 sec keisha for improved single limb support and balance. Patient will improve DGI score from 14 to to dec his risk of falling and improve his safety with carrying his children. Patient will demonstrate improved trunk control and L swing phase with gait for improved efficiencyof gait and dec risk of tripping and falling. Patient will be independent with HEP for home management. IE date: 07/03/19 Progress report due: visit #6-10 or 08/03/19. Recert due: visit #16 or 09/01/19. Patient Education: Quality of movement, Written HEP, HEP Adherence and Diagnosis and recovery specific education with patient demonstrated understanding, verbalized understanding and written information provided . Post-Treatment Pain Scale: 0 Assessment: Patient had an expected response to treatment. patient demonstrated poor trunk control with several exercises. Focused on straightening knees with various exercises for improved quad strength and posture. Responded best with stand and step exercise with facilitation at L upper abdominals, scapula, and L hip abductors. Skilled Intervention demonstrated by modifications of treatment per exercise log including increased load, increased intensity, increased mobility, increased volume and assessment of patient's response and safety interventions per exercise log. Progress towards goals as expected. Plan for Next Visit: Treatment Visit with focus on Arc personal trainer Core stability exercises with SB Try bridges and add to HEP if appropriate Modified plank at counter with LE movements Step over low rod (try with NDT pole in LUE for trunk stabilization) Ashwin Way, PT STATE, [id number] documented in this encounter* Zara Osborne, HARNESS CUTTER - 07/09/2019 3:30 PM EST [facility] TREAT[facility] NOTE Today's Date 07/09/2019 Patient Name: Jez Haider Date of : 2000 Current Visit #: 3/16 Authorized Visits: 30 Case Name: Cerebral Palsy PT History: Pre-Treatment Pain Scale: 0 Symptoms: Functional Diagnosis: 1. Spastic diplegic cerebral palsy (HCC) Clinical Information: Subjective: Patient is compliant and independent with HEP. Pt states he wants to get his LE stronger to be able to hold his child and ambulate. Objective Time in:331 Time out:4:09 PM Treatments: Physical Therapy Exercise Log - 07/09/19 1529 OTHER Precautions/Contraindications PMHx: CP, h/o hamstring and achilles lengthening surgeries Therapeutic Exercise (58044) Intervention Slide disk lunges lat/retro x15 each B vc's to increase knee flex Parameters Lateral stepping with squat 10# 4x15 feet B vc's for correct squat form Neuro Re-Ed (03608) Intervention Step ups on 8 step with SL stand fwd/lat x10 each B vc's to complete with improve form Parameters Alternating step taps on blue foam and 12 step with 3# OH x15 B vc's to decrease speed Intervention SL bosu stepovers fwd/lat x15 B Parameters Mod SLS on bosu and 12 step 3x30 PT Treatment Times Therex Total Time 9 Neuro Re-Ed Total Time 29 Direct Treatment Time 38 Goals: Physical Therapy Neuro Goals: Patient will improve SLS to 5 sec keisha for improved single limb support and balance. Patient will improve DGI score from 14/24 to 19/24 to dec his risk of falling and improve his safety with carrying his children. Patient will demonstrate improved trunk control and L swing phase with gait for improved efficiencyof gait and dec risk of tripping and falling. Patient will be independent with HEP for home management. IE date: 07/03/19 Progress report due: visit #6-10 or 08/03/19. Recert due: visit #16 or 09/01/19. Patient Education: HEP Adherence with patient verbalized understanding. Post-Treatment Pain Scale: 0 Assessment: Patient had an expected response to treatment. Pt required vc's during session to complete exercises with correct form to further increase strength and balance in B LE. He had increased fatigue in B LE by conclusion of visit today. Skilled Intervention demonstrated by modifications of treatment per exercise log including increased intensity and assessment of patient's response and safety interventions per exercise log. Progress towards goals as expected. Plan for Next Visit: Treatment Visit with focus on increasing strength in B LE. Marching ambulationwith weight and retro stepping. Zara Osborne PTA STATE LICENSE, [id number] documented in this encounter* Zara Osborne PTA - 07/18/2019 4:15 PM EST [facility] TREAT[facility] NOTE Today's Date 07/18/2019 Patient Name: Jez Haider Date of : 2000 Current Visit #: 09/24 Authorized Visits: 30 Case Name: Cerebral Palsy PT History: Pre-Treatment Pain Scale: 0 Symptoms: Functional Diagnosis: 1. Spastic diplegic cerebral palsy (HCC) Clinical Information: Subjective: Pt arrived to therapy 6 min late today. Patient is compliant and independent with HEP. Pt has difficulty with stairs and ambulation due to decreased strength in B LE. Objective Time in:421 Time out:459 Treatments: Physical Therapy Exercise Log - 07/18/19 1623 OTHER Precautions/Contraindications PMHx: CP, h/o hamstring and achilles lengthening surgeries Therapeutic Exercise (82122) Intervention Nustep L5 8 min Parameters Golfers lift 10# x15 B vc's to decrease UE support as able Intervention Stool scoots fwd 2 min each LE Parameters Wall squats x15 vc's for correct form Intervention Sidelying plank ups x15 B Neuro Re-Ed (41266) Intervention Alternating step taps on bosu and 12 step x15 B Parameters Bosu squats x15 vc's to decrease speed Intervention Tandem stand balance 2x30 B U UE support for balance PT Treatment Times Therex Total Time 26 Neuro Re-Ed Total Time 12 Direct Treatment Time 38 Goals: Physical Therapy Neuro Goals: Patient will improve SLS to 5 sec keisha for improved single limb support and balance. Patient will improve DGI score from 14/24 to 19/24 to dec his risk of falling and improve his safety with carrying his children. Patient will demonstrate improved trunk control and L swing phase with gait for improved efficiencyof gait and dec risk of tripping and falling. Patient will be independent with HEP for home management. IE date: 07/03/19 Progress report due: visit #6-10 or 08/03/19. Recert due: visit #16 or 09/01/19. Patient Education: HEP Adherence with patient verbalized understanding. Post-Treatment Pain Scale: 0 Assessment: Patient had an expected response to treatment. Pt had increased fatigue at conclusion of visit today. He required vc's to decrease speed of completing exercises to further increase strength in B LE. He had difficulty with several new exercises due to weakness. Skilled Intervention demonstrated by modifications of treatment per exercise log including increased intensity and assessment of patient's response and safety interventions per exercise log. Progress towards goals as expected. Plan for Next Visit: Treatment Visit with focus on increasing strength in B LE. Lateral stepping with squat and retro lunges. Zara Osborne PTA STATE LICENSE, [id number] documented in this encounter* Ashwin Way, PT - 07/29/2019 5:00 PM EST [facility] TREATMENT NOTE Today's Date 07/29/2019 Patient Name: Jez Haider Date of : 2000 Current Visit #: 10/24 Authorized Visits: 30 Case Name: Cerebral Palsy PT History: Pre-Treatment Pain Scale: stiff Symptoms: keisha hips Functional Diagnosis: 1. Spastic diplegic cerebral palsy (HCC) Clinical Information: Subjective: Patient notes his daughter was born last night so he has not had much sleep. He has noticed improvements since starting therapy. If he is paying attention he is getting his heel down. He wants to be able to carry his daughter up the stairs. He thinks he can do this safely, but afraid of not picking his legs up enough. His stairs at home have a handrail on the L side going up the stairs. Objective Tx Start Time: 505 Tx End Time: 545 See goals for details Treatments: Physical Therapy Exercise Log - 07/29/19 1713 OTHER Precautions/Contraindications PMHx: CP, h/o hamstring and achilles lengthening surgeries Therapeutic Exercise (77879) Intervention Arc personal trainer 6 15 x5 min Parameters reviewed goals, HEP Intervention bridging x15 focus on not letting LEs fall into ER Neuro Re-Ed (38662) Intervention single leg stance Parameters DGI Intervention step ups holding 9# dumbbell in RUE x10 keisha at 6 step inc difficulty leading with RLE due to L posterolateral trunk lean Parameters step throughs holding 9# shahnaz in RUE x10 keisha at 6 step intermittent handrail use with R stance Intervention mod plank at counter x30 , x45 Parameters step over low rod with NDT pole in LUE for trunk stabilization, improved with lowering hand placement on NDT pole PT Treatment Times Therex Total Time 15 Neuro Re-Ed Total Time 24 Direct Treatment Time 39 Total Treatment Time 40 Goals: Physical Therapy Neuro Goals: Patient will improve SLS to 5 sec keisha for improved single limb support and balance. 07/29/19: R 7 sec L 3 sec with heavy trunk lean to L to compensate for hip abductor weakness. Ongoing. Patient will improve DGI score from to to dec his risk of falling and improve his safety with carrying his children. 07/29/19: . Met. Patient will demonstrate improved trunk control and L swing phase with gait for improved efficiencyof gait and dec risk of tripping and falling. 07/29/19: improved L swing phase, poor trunk control with L posterolateral lean during L stance of gait. Ongoing. Patient will be independent with HEP for home management. 07/29/19: notes he was good about doing HEP initially but has been busy recently and not able to be as consistent. IE date: 07/03/19 Progress report due: visit #6-10 or 08/03/19. Recert due: visit #16 or 09/01/19. HEP: sidelying hip abduction x15 keisha, prone hip extension x15 keisha, planks on forearms and toes x3 reps, bridging x15 Patient Education: Quality of movement, Written HEP, HEP Modification, HEP Adherence, Diagnosis andrecovery specific education and Home Safety with patient demonstrated understanding, verbalized understanding and written information provided . Post-Treatment Pain Scale: 0 Assessment: Patient had an expected response to treatment. He is demonstrating improved balance with gait as evidenced by DGI test. His gait is demonstrating improved quad strength as his knees are not buckling when he ambulates. He continues to demonstrate poor trunk control and weakness in his L hip abductors. Skilled therapy needed to continue addressing functional impairments and working towards goals. Skilled Intervention demonstrated by modifications of treatment per exercise log including increased load, increased intensity and assessment of patient's response and safety interventions per exercise log. Progress towards goals as expected. Plan for Next Visit: Treatment Visit with focus on Trunk stability, core stability exercises with SB, side planks on forearms and knees with progression to foot , Modified plank at counter with LE movements [address] PT STATE, [id number] documented in this encounter* Indy Yusuf MA - 05/30/2019 12:59 PM EST Received records from [facility]. Placed in Dr. Stephens's inbasket for review. documented in this encounter* Ashwin Way PT - 07/03/2019 5:00 PM EST [facility] Evaluation Today's Date 07/04/2019 Patient Name: Jez Haider Date of : 2000 Case Name: Cerebral Palsy PT Functional Diagnosis: 1. Spastic diplegic cerebral palsy (HCC) 2. Imbalance Clinical Information: Subjective History of Present Illness Chief Complaint/ Mechanism of Injury: Patient presents to PT with CP. He wants to better his balance. He has had therapy almost all his life, in school, and after all 6 surgeries. He wants to continue to work on his walking and balance. Has had achilles and hamstring lengthening surgeries. He has titanium bar from the top of his L hip to his L knee. They tried to rotate his L hip 3-4 times. Has had 5 hamstring lengthening surgeries and achilles lengthening 3 times. He had surgery to his R knee after it locked up on him and had R achilles and HS lengthening after this. Most recent surgery was February 2018 and it was for achilles lengthening keisha. He does stretching at home to help with the tightness, but does not stretch every day. He wants to be more consistent with this. 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 Works at [employer] until 3pm then at [employer] after that. He wants to be able to safely carry his kids. Patient has an 8 mo old son and daughter due in July. He was last in therapy July 2018 which is when it ended following his last surgery. He notes that he is having more trouble with leaning when standing or walking that his body does to balance itself. He is weaker on his L side than the R. Several months ago he had some back pain that has comeon and off over the years. It sometimes affects his ability to walk and has to use a cane or a wheelchair. Just started working at [employer] this week and today was his 4th day of work there. Pain Scale: Average Pain: pain at low back/sacrum, up to 10/10 when it comes on but doesn't last long, stretches his back to resolve it; can occur 2-3x/day. Functional Status Current Functional Level: not currently limited. Daily activity scale: very active Prior level of function: very active Red Flags: None Barriers to Care: Work Schedule (works 2 jobs) Fall risk screening Fallen 2 or more times in the last 12 months: No Injured as a result of a fall in the last 12 months: No Personal Goals: Improve my walking overall, to try and get a little better heel- toe gait. Safely holding his kids (better balance). Home medical equipment owned: No Social History Occupation: [employer]-does a lot of bending, lots with his hands, stands all day Home environment: house and lives with others (14 steps to 2nd floor, handrail on L side for first 11 steps going up but none for last 3 steps) Jain, social, or cultural considerations to be made aware of before starting treatment: No Evaluation Tx Start Time: 500 Tx End Time: 546 Posture: Seated: fair-poor sitting posture, several voluntary movements and readjusting throughout subjective Standing: good alignment, knees straight and not buckled Gait: Comments: L posterolateral trunk lean with L swing phase and initial stance, dec L knee flexion during L swing, good heel-toe gait; trouble with clearing L foot over shoe box Stairs: reciprocal no UE assist Single leg stance: L-1 sec, R-2 sec Sit<>stand: WNL Stand<>sit: WNL Price/56 DGI: FGA: 5x sit<>stand: 9.9 sec no UE assist Tinetti: Balance: 14 Gait: 8 Total: Strength L_/5 R_/5 Hip Flexion 5 4+ Knee Extension 5 5 Knee Flexion 4 4+ Ankle Dorsiflexion 5 5 Ankle Plantarflexion 4 5 Able to get to full knee extension in sitting, beyond neutral DF with knees straight and bent bilaterally Treatments: Physical Therapy Exercise Log - 07/03/19 1701 OTHER Precautions/Contraindications PMHx: CP, h/o hamstring and achilles lengthening surgeries Therapeutic Exercise (78669) Intervention initiate HEP based on response to the following: step ups, step throughs, mod SLS, modplank at counter, quadruped Treatment Plan: Frequency of Visits: twice per week Duration: 8 weeks Interventions: Therapeutic Exercise, Neuromuscular Re-Education, Manual Therapy, Therapeutic/ Functional Activities, Gait Training and Hot/Cold Pack Rehab Potential: fair Goals: Physical Therapy Neuro Goals: Patient will improve SLS to 5 sec keisha for improved single limb support and balance. Patient will improve DGI score from to to dec his risk of falling and improve his safety with carrying his children. Patient will demonstrate improved trunk control and L swing phase with gait for improved efficiencyof gait and dec risk of tripping and falling. Patient will be independent with HEP for home management. IE date: 07/03/19 Progress report due: visit #6-10 or 08/03/19. Recert due: visit #16 or 09/01/19. Patient Education provided: Discussed Plan of care frequency and duration, treatment plan, importance of attendance for recovery, team concept, and diagnosis/pathophysiolgy/prognosis. Pt is in agreement with plan, and all questions at this time were answered. Clinical Impression: CPT Code 37619 Low 94263 Moderate 03997 High History 0 1-2 3+ Comorbidities: hx of neurological disease and prior surgical history, Personal factors: age, chronicity or severity of the current condition and work/school barriers Examination of body systems (elements of body structures & functions, activity limitations, and/or participation restrictions) 1-2 elements 3+ elements 4+ elements See below clinical impression Clinical Presentation Stable Evolving Unstable As evidenced by no consistent response to assessments/interventions Jez Haider presents to [facility] outpatient neurological rehab services with c/o difficulty with gait and balance due to cerebral palsy. Upon assessment, patient demonstrates the following impairments: impaired static and dynamic balance, impaired single limb stance, dec strength, impaired gait. 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 Potential barriers to rehab include: work schedule and history of attendance issues due to several rescheduled evaluations to begin therapy. The patient would benefit from skilled PT services focused on the above listed impairments and limitations in order to safely progress patient to desired level of function. Plan of care to be revised as needed based on response to therapeutic intervention. Thank you for allowing me to participate in this patient's care. Please contact me with any questions at the above number. Plan: initiate HEP based on response to the following: step ups, step throughs, mod SLS, mod plank at counter, quadruped; step over low rod, ambulation with tband around abdomen for inc core activation, holding SB in UEs with ambulation [address], PT STATE, [id number] documented in this encounter Additional Source Comments (unrecognized sect ion and content) No Status Records FoundNo Status Records FoundNo Status Records FoundNo Status Records FoundNo Status Records FoundNo Status Records FoundNo Status Records FoundNo Status Records FoundNo Status Records FoundNo Status Records Found INFORMATION SOURCE (unrecogn ized section and content) DATE CREATED AUTHOR AUTHOR'S ORGANIZ ATION 05/20/2018 [facility] DATE CREATED AUTHOR AUTHOR'S ORGANIZ ATION 07/11/2018 [facility] DATE CREATED AUTHOR AUTHOR'S ORGANIZ ATION 10/25/2019 [facility] DATE CREATED AUTHOR AUTHOR'S ORGANIZ ATION 10/30/2019 [facility] DATE CREATED AUTHOR AUTHOR'S ORGANIZ ATION 12/28/2019 [facility] DATE CREATED AUTHOR AUTHOR'S ORGANIZ ATION 11/19/2020 [facility] DATE CREATED AUTHOR AUTHOR'S ORGANIZ ATION 10/11/2021 [facility] ([place] DATE CREATED AUTHOR AUTHOR'S ORGANIZ ATION 11/19/2022 [facility] DATE CREATED AUTHOR AUTHOR'S ORGANIZ ATION 03/13/2023 [facility] Reason for Visit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 nausea, vomiting or diarrhea. No neck stiffness. No cough or trouble breathing. He is still able to eat and swallow without difficulty. Reports about a month ago he had throat infection and he was worried maybe that was the same thing today. Past Medical History: Diagnosis Date CP (cerebral palsy) ([facility]) Past Surgical History: Procedure Laterality Date ORTHOPEDIC SURGERY History reviewed. No pertinent family history. Social History Socioeconomic History Marital status: Single Spouse name: Not on file Number of children: Not on file Years of education: Not on file Highest education level: Not on file Occupational History Not on file Social Needs Financial resource strain: Not on file Food insecurity: Worry: Not on file Inability: Not on file Transportation needs: Medical: Not on file Non-medical: Not on file Tobacco Use Smoking status: Never Smoker Smokeless tobacco: Never Used Substance and Sexual Activity Alcohol use: Never Frequency: Never Drug use: Never Sexual activity: Not on file Lifestyle Physical activity: Days per week: Not on file Minutes per session: Not on file Stress: Not on file Relationships Social connections: Talks on phone: Not on file Gets together: Not on file Attends lutheran service: Not on file Active member of club or organization: Not on file Attends meetings of clubs or organizations: Not on file Relationship status: Not on file Other Topics Concern Not on file Social History Narrative Not on file Previous Medications Medication Sig cyclobenzap-irritant cntr irr2 10 mg Kit 10 mg . naproxen (NAPROSYN) 125 mg/5 mL suspension 500 mg . Allergies Allergen Reactions Latex Hives Review of Systems Constitutional: Negative for chills and fever. HENT: Positive for sore throat. Negative for congestion, ear discharge, ear pain, rhinorrhea and trouble swallowing. Respiratory: Negative for cough, shortness of breath and wheezing. Cardiovascular: Negative for chest pain and palpitations. Gastrointestinal: Negative for abdominal pain, diarrhea, nausea and vomiting. Musculoskeletal: Negative for neck pain and neck stiffness. Skin: Negative for rash. Neurological: Negative for syncope, weakness, light-headedness and headaches. All other systems reviewed and are negative. Positives and pertinent negatives as per HPI. All other systems were reviewed and are negative. Patient Vitals for the past 24 hrs: BP Temp Temp src Pulse Resp SpO2 Height Weight 11/01/19 2350 127/72 97.6 F (36.4 C) Oral 67 18 97 % 5' 7 57.2 kg (126 lb) Physical Exam Vitals signs and nursing note reviewed. Constitutional: General: He is not in acute distress. HENT: Head: Normocephalic and atraumatic. Right Ear: External ear normal. Left Ear: External ear normal. Nose: Nose normal. Mouth/Throat: Mouth: Mucous membranes are dry. Pharynx: Oropharynx is clear. No oropharyngeal exudate or posterior oropharyngeal erythema. Eyes: Extraocular Movements: Extraocular movements intact. Conjunctiva/sclera: Conjunctivae normal. Pupils: Pupils are equal, round, and reactive to light. Neck: Musculoskeletal: Normal range of motion and neck supple. No neck rigidity. Cardiovascular: Rate and Rhythm: Normal rate and regular rhythm. Pulses: Normal pulses. Heart sounds: Normal heart sounds. Pulmonary: Effort: Pulmonary effort is normal. No respiratory distress. Breath sounds: Normal breath sounds. No wheezing or rhonchi. Lymphadenopathy: Cervical: No cervical adenopathy. Skin: General: Skin is warm. Capillary Refill: Capillary refill takes less than 2 seconds. Findings: No erythema or rash. Neurological: Mental Status: He is alert and oriented to person, place, and time. Laboratory & Radiographic Imaging (if done): Results for orders placed or performed during the hospital encounter of 04/11/19 Rapid Strep Screen Result Value Ref Range Strep A Ag Presumptive Negative for Group A Streptococcus Presumptive Negative for Group A Streptococcus No orders to display Procedures The patient has been informed that they may have pre-hypertension or hypertension based on a blood pressure reading in the Emergency Department. I recommend that the patient call the primary care provider listed on their discharge instructions or a physician of their choice as soon as possible to arrange follow-up in the next 4 weeks for further evaluation of possible pre-hypertension or hypertension. . New Prescriptions ibuprofen (ADVIL,MOTRIN) 800 MG tablet Take 1 (one) tablet (800 mg total) by mouth every 8 (eight) hours as needed for pain . Bita Kline DO, FACEP Attending Physician [facility] Emergency Department Bita Kline DO 04/12/19 0050 Pt states, I was seen here about a month ago for a throat infection and I'm having like the same symptoms and someone told me it could be an air pocket. No OTC and no F/U with PCP. documented in this encounter ED PROVIDER NOTE [facility] NAME: Jez Haider AGE: 19 y.o. : 2000 VISIT DATE: 05/31/2019 CSN: [id number] PCP: Lexa Stephens MD Clinical Impression: 1. Fatigue, unspecified type 2. Viral syndrome ED Disposition ED Disposition Condition Comment Discharge Stable Jez Haider discharged to home/self care in stable condition. Considered viral/bacterial URI, bronchitis, atypical pneumonia, infectious mononucleosis. Currently no hypoxia, no evidence of dehydration, tolerating po fluids and antipyretics if needed. Will discharge at this time with symptom control and follow up with PCP in 2-3 days for recheck. Return for worsening symptoms or concerns. Follow-up Information 1. Lexa Stephens MD. Specialty: Family Medicine Why: As needed, recheck today's complaints [address] [place] [address] [address] [place] [address] Contact information for after-discharge care Follow-up information has not been specified. MDM Number of Diagnoses or Management Options Amount and/or Complexity of Data Reviewed Clinical lab tests: ordered and reviewed Patient Progress Patient progress: stable Chief Complaint Patient presents with Generalized Body Aches Shortness of Breath HPI Patient is a 19-year-old male presented to the emergency department concerns of generally not feeling well. Patient states that symptoms started yesterday. States he has been generalized fatigue, generalized body aches. He states that he feels like he cannot exert himself at all. States he has not tried anything for symptoms at this time. Denies any fever, chills no headache, dizziness, syncope. States he has had some mild tightness in his chest. Denies any cough, chest pain. States he has had some nausea denies any vomiting. Denies abdominal pain, no diarrhea, hematochezia backslash tarry stools, dysuria, hematuria urgency or frequency, extremity weakness numbness, paresthesias. As noted above, no interventions at this time. Past Medical History: Diagnosis Date CP (cerebral palsy) ([facility]) Past Surgical History: Procedure Laterality Date LEG SURGERY ORTHOPEDIC SURGERY Family History Problem Relation Age of Onset Cancer Mother Cancer Maternal Grandmother Diabetes Paternal Grandmother Cancer Paternal Grandfather Social History Socioeconomic History Marital status: Single Spouse name: Not on file Number of children: Not on file Years of education: Not on file Highest education level: Not on file Occupational History Not on file Social Needs Financial resource strain: Not on file Food insecurity Worry: Never true Inability: Never true Transportation needs Medical: Not on file Non-medical: Not on file Tobacco Use Smoking status: Never Smoker Smokeless tobacco: Never Used Substance and Sexual Activity Alcohol use: Never Frequency: Never Drug use: Never Sexual activity: Not on file Lifestyle Physical activity Days per week: Not on file Minutes per session: Not on file Stress: Not on file Relationships Social connections Talks on phone: Not on file Gets together: Not on file Attends lutheran service: Not on file Active member of club or organization: Not on file Attends meetings of clubs or organizations: Not on file Relationship status: Not on file Other Topics Concern Not on file Social History Narrative Not on file Previous Medications Medication Sig cyclobenzap-irritant cntr irr2 10 mg Kit 10 mg . flu vac qv 2019,18yr up,rc,PF, (FLUBLOK QUAD) syringe Sign this order in conjunction with the immunization order to satisfy [place] Board [employer] Positive ID requirements for immunization orders. . naproxen (NAPROSYN) 125 mg/5 mL suspension 500 mg . Allergies Allergen Reactions Latex Hives Review of Systems Positives and pertinent negatives as per HPI. All other systems were reviewed and are negative. Patient Vitals for the past 24 hrs: BP Temp Temp src Pulse Resp SpO2 Height Weight 06/01/19 0308 129/69 86 16 99 % 05/31/19 2354 (!) 147/89 97.5 F (36.4 C) Oral 79 16 99 % 05/31/19 2354 5' 7 57.2 kg (126 lb) Physical Exam Vitals signs and nursing note reviewed. Constitutional: General: He is not in acute distress. Appearance: He is well-developed. He is not ill-appearing, toxic-appearing or diaphoretic. HENT: Head: Normocephalic and atraumatic. Mouth/Throat: Mouth: Mucous membranes are moist. Pharynx: Oropharynx is clear. No pharyngeal swelling. Eyes: Extraocular Movements: Extraocular movements intact. Pupils: Pupils are equal, round, and reactive to light. Neck: Musculoskeletal: Normal range of motion. Cardiovascular: Rate and Rhythm: Normal rate and regular rhythm. Heart sounds: No murmur. No friction rub. No gallop. Pulmonary: Effort: Pulmonary effort is normal. No tachypnea or respiratory distress. Breath sounds: Normal breath sounds. No decreased breath sounds, wheezing or rhonchi. Chest: Chest wall: No tenderness. Abdominal: Palpations: Abdomen is soft. Tenderness: There is no abdominal tenderness. There is no guarding. Musculoskeletal: Right lower leg: No edema. Left lower leg: No edema. Skin: General: Skin is warm. Capillary Refill: Capillary refill takes less than 2 seconds. Coloration: Skin is not cyanotic. Findings: No erythema or rash. Neurological: General: No focal deficit present. Mental Status: He is alert and oriented to person, place, and time. Laboratory & Radiographic Imaging (if done): Results for orders placed or performed during the hospital encounter of 05/31/19 Influenza A,B Rapid Molecular Result Value Ref Range Influenza A Not Detected Not Detected Influenza B Not Detected Not Detected BMP Result Value Ref Range Sodium 141 135 - 145 mmol/L Potassium 3.6 3.5 - 5.1 mmol/L Chloride 109 (H) 98 - 108 mmol/L Bicarbonate 29 21 - 32 mmol/L Anion Gap 7 (L) 10 - 20 mmol/L Glucose 118 (H) 65 - 99 mg/dL BUN 18 8 - 25 mg/dL Creatinine 0.75 0.50 - 1.30 mg/dL eGFR 131 >=60 mL/min/1.73 m2 BUN/Creatinine Ratio 24.0 (H) 10.0 - 20.0 Calcium 8.9 8.4 - 10.2 mg/dL Urinalysis Result Value Ref Range Color, Urine Yellow Colorless, Yellow Clarity, Urine Cloudy (A) Clear Specific [place] 1.023 1.005 - 1.025 pH, Urine 6.0 5.0 - 7.0 Protein, Urine Negative Negative mg/dL Glucose, Urine Negative Negative mg/dL Ketones, Urine Negative Negative mg/dL Bilirubin, Urine Negative Negative Urobilinogen, Urine 2.0 (A) <2.0 mg/dL Blood, Urine Negative Negative Nitrite, Urine Negative Negative Leukocyte Esterase, Urine Negative Negative Bacteria, Urine None Seen None Seen /hpf Amorphous Crystals Rare None Seen, Rare /hpf Mucus, Urine Rare None Seen, Rare /lpf CPK NO MB Result Value Ref Range Total CK 207 60 - 225 U/L Mononucleosis Screen Result Value Ref Range Mononucleosis Screen Negative Negative CBC Auto Differential Result Value Ref Range WBC 5.46 4.50 - 11.00 K/mcL RBC 4.83 4.50 - 5.90 M/mcL Hemoglobin 14.4 13.5 - 17.5 g/dL Hematocrit 42.6 41.0 - 53.0 % MCV 88.2 80.0 - 100.0 fL MCH 29.8 26.0 - 34.0 pg MCHC 33.8 31.0 - 37.0 g/dL Platelets 180 150 - 400 K/mcL RDW - CV 12.4 11.6 - 14.8 % MPV 11.7 9.0 - 15.5 fL Neutrophils 65.9 % Lymphocytes 25.1 % Monocytes 7.7 % Eosinophils 0.2 % Basophils 0.9 % IG Percent 0.20 % Neutrophils Abs 3.60 1.70 - 7.00 K/mcL Lymphocytes Abs 1.37 0.90 - 4.00 K/mcL Monocytes Abs 0.42 0.30 - 0.90 K/mcL Eosinophils Abs 0.01 0.00 - 0.50 K/mcL Basophils Abs 0.05 0.00 - 0.30 K/mcL IG Absolute 0.01 0.00 - 0.30 K/mcL Nucleated RBC 0.0 % Nucleated RBC Abs 0.00 0.00 - 0.00 K/mcL No orders to display Procedures The patient has been informed that they may have pre-hypertension or hypertension based on a blood pressure reading in the Emergency Department. I recommend that the patient call the primary care provider listed on their discharge instructions or a physician of their choice as soon as possible to arrange follow-up in the next 4 weeks for further evaluation of possible pre-hypertension or hypertension. . (Please note that portions of this note may have been completed with a voice recognition software. Efforts were made to correct any errors, but occasionally words are mis-transcribed.) Sim Acharya PA-C 06/01/19 0328 I feel bad , I have been working a lot lately and this am when I woke up my whole body hurts and I feel short of breath documented in this encounter [facility] ED Physician Note: NAME: Jez Haider 19 y.o. CSN: [id number] PCP: Lexa Stephens MD Chief Complaint: Leg Pain; Generalized Body Aches; and Post-op Problem Clinical Impression: 1. Muscle pain 2. S/P Botox injection 3. Left against medical advice ED Course/ Medical Decision Making: Patient presents emergency room for evaluation of bilateral leg pain and leg spasms sensation. He has disc pain and spasm at baseline due to cerebral palsy but worsening symptoms since Botox injection. On exam there is no signs of infection, cellulitis, abscess. The patient has good muscle tone bilaterally of the entire leg, sensation intact throughout, muscle strength is 5 out of 5. Patient denies any other symptoms such as fever, chills, nausea or vomiting, chest pain shortness of breath, headache, dizziness, no other focal neuro deficit is noted on my exam. Normal gait noted without ataxia Will prescribe some muscle relaxer. Patient was given Toradol and Norflex injection for his pain and spasm Discussed case with attending MD. I am paging alyse Leyva patient's doctor to perform this procedure. We are calling multiple times to get a hold of this doctor but we are not successful. The patient states that he has to go to work therefore he does not want to wait. I have recommended staying in the ed for his doctor to call back so we can discuss his case l, but Jez Haider refuses. The risks (including but not limited to, suffering and ) as well as the benefits were explained to the him. Questions were sought and answered and the he voiced understanding. However, Jez Haider still refuses I have encouraged him to return to have their evaluation completed, if he changes his mind. I have also instructed Jez Haider on the importance of immediate follow-up and to return for any worsening or worrisome concerns, or if he changes his her mind. Jez Haider appears competent to make medical decisions at this time. AMA form signed and placed on the chart. The patient has been informed that they may have pre-hypertension or hypertension based on a blood pressure reading in the Emergency Department. I recommend that the patient call the primary care provider listed on their discharge instructions or a physician of their choice as soon as possible to arrange follow-up in the next 4 weeks for further evaluation of possible pre-hypertension or hypertension. . If patient is currently a smoker or uses a tobacco product, I did alcoholic counselor them on benefits and resources of smoking/tobacco use cessation. Disposition: Patient left AMA New Prescriptions cyclobenzaprine (FLEXERIL) 10 MG tablet Take 1 (one) tablet (10 mg total) by mouth 3 (three) times a day as needed for muscle spasms . ibuprofen (ADVIL,MOTRIN) 600 MG tablet Take 1 (one) tablet (600 mg total) by mouth every 8 (eight) hours as needed for pain Take with food . Follow-up Information 1. dr alyse solomon, your specialist at [facility]. Why: for symptom reheck 2. [facility] Emergency Department. Specialty: Emergency Medicine Why: If symptoms worsen [address] [facility] [address] [place] [address] Contact information for after-discharge care Follow-up information has not been specified. History: Chief Complaint: Leg Pain; Generalized Body Aches; and Post-op Problem HPI: The history was obtained from the patient. He is a 19 y.o. male who presents with a chief complaint of Leg Pain; Generalized Body Aches; and Post-op Problem. This is 19-year-old male who comes to emergency room for evaluation of bilateral leg pain. Patient reports muscle ache-like pain and spasm of bilateral lower legs since 3 days ago he received Botox in his bilateral leg muscle for his cerebral palsy. He went to a specialist, at [facility], Dr. Martinez. He says that he was referred to him by Dr. Stephens. He says that he is a specialist told him that the Botox injection will not kick in for 1 week and it will help with his chronic bilateral leg muscle spasm secondary to cerebral palsy. He reports since the injection, he is has had achy sensation of the bilateral leg and some spasm. The patient reports he is never had this injection before. He states that he has had this sensation since the injection and worsening after he woke up from sleep from working third shift. He was not able to call his doctor. He reports sensation is constant, nothing makes it better or worse. He denies any swelling, redness, warmth or rash. Denies any fever, chills, nausea vomit. Denies any pallor, paresthesia. History provided by: Patient interpreter for the deaf used: No Leg Pain Associated symptoms: no fever PMHx: Past Medical History: Diagnosis Date CP (cerebral palsy) (HCC) PMSx: Past Surgical History: Procedure Laterality Date HIP SURGERY LEG SURGERY ORTHOPEDIC SURGERY FAM. Hx: Family History Problem Relation Age of Onset Cancer Mother Cancer Maternal Grandmother Diabetes Paternal Grandmother Cancer Paternal Grandfather SOC. Hx: Social History Socioeconomic History Marital status: Single Spouse name: Not on file Number of children: Not on file Years of education: Not on file Highest education level: Not on file Occupational History Not on file Social Needs Financial resource strain: Not on file Food insecurity Worry: Never true Inability: Never true Transportation needs Medical: Not on file Non-medical: Not on file Tobacco Use Smoking status: Never Smoker Smokeless tobacco: Never Used Substance and Sexual Activity Alcohol use: Never Frequency: Never Drug use: Never Sexual activity: Not on file Lifestyle Physical activity Days per week: 5 days Minutes per session: 40 min Stress: Not at all Relationships Social connections Talks on phone: Not on file Gets together: Not on file Attends lutheran service: Not on file Active member of club or organization: Not on file Attends meetings of clubs or organizations: Not on file Relationship status: Not on file Other Topics Concern Not on file Social History Narrative Not on file MEDs: Previous Medications Medication Sig cyclobenzap-irritant cntr irr2 10 mg Kit 10 mg . flu vac qv 2019,18yr up,rc,PF, (FLUBLOK QUAD) syringe Sign this order in conjunction with the immunization order to satisfy [place] Board of Pharmacy Positive ID requirements for immunization orders. . naproxen (NAPROSYN) 125 mg/5 mL suspension 500 mg . tiZANidine (Zanaflex) 4 MG tablet Take 1 (one) tablet (4 mg total) by mouth 3 (three) times a day as needed for muscle spasms . ALL: Allergies Allergen Reactions Latex Hives ROS: Review of Systems Constitutional: Negative for chills and fever. Respiratory: Negative for cough and shortness of breath. Cardiovascular: Negative for chest pain. Gastrointestinal: Negative for abdominal pain, nausea and vomiting. Skin: Negative for color change and wound. Neurological: Negative for weakness and numbness. All other systems reviewed and are negative. Positives and pertinent negatives as per HPI. All other systems were reviewed and are negative. Physical Exam: Patient Vitals for the past 24 hrs: BP Temp Pulse Resp SpO2 Height Weight 12/01/191954 134/73 98.3 F (36.8 C) 92 18 97 % 5' 7 53.5 kg (118 lb) Physical Exam Vitals signs and nursing note reviewed. Constitutional: General: He is not in acute distress. Appearance: He is well-developed. Cardiovascular: Rate and Rhythm: Normal rate and regular rhythm. Pulses: Normal pulses. Dorsalis pedis pulses are 2+ on the right side and 2+ on the left side. Comments: Bilateral legs showed no pitting edema. No unilateral edema or tenderness or redness noted. No lymphangitis no either leg. No homans sign on either legs. Pulmonary: Effort: Pulmonary effort is normal. Breath sounds: Normal breath sounds. Abdominal: General: Bowel sounds are normal. Tenderness: There is no abdominal tenderness. Musculoskeletal: Right hip: He exhibits normal range of motion, normal strength, no tenderness and no bony tenderness. Left hip: He exhibits normal range of motion, normal strength, no tenderness and no bony tenderness. Right knee: He exhibits normal range of motion and no swelling. No tenderness found. Left knee: He exhibits normal range of motion and no swelling. No tenderness found. Comments: I am not seeing any puncture on bilateral legs or signs of infection, redness or warmth or rash. Bilateral leg musculature tone is strong, bilateral leg strength is 5 out of 5, sensation intact throughout. I do not appreciate any tremors. Patient is stable gait. Skin: Capillary Refill: Capillary refill takes less than 2 seconds. Neurological: General: No focal deficit present. Mental Status: He is alert and oriented to person, place, and time. GCS: GCS eye subscore is 4. GCS verbal subscore is 5. GCS motor subscore is 6. Cranial Nerves: Cranial nerves are intact. Sensory: Sensation is intact. Motor: Motor function is intact. Coordination: Coordination is intact. Gait: Gait is intact. Psychiatric: Behavior: Behavior normal. Laboratory & Radiological Imaging (if done): Labs Reviewed - No data to display No orders to display Procedures: Procedures Note: To expedite correspondence this note was generated by [employer] voice recognition software. Some grammatical or spelling errors may occur using the system. ZHANNA Em, ENP-C ED Nurse Practitioner [facility] Emergency Department (Please note that portions of this note have been completed with a voice recognition software. Efforts were made to correct any errors, but occasionally words are mis-transcribed.) Maureen Poe CNP 12/01/19 [id number] Pt in [place] am I going to be seen by 930? If not im going to leave this rn assured pt that providers are working as quickly as possible and will be in to see him as soon as they can. This rn offered to get pt refreshments and a blanket. Pt denies needs and ambulated back to room Patient reports I have CP. I had a botox injection into my legs on Sunday. I have a lot of pain and tightness in my legs. I am feeling a lot of pain all over. documented in this encounter ED PROVIDER NOTE [facility] EMERGENCY DEPARTMENT NAME: Jez Haider AGE: 18 y.o. : 2000 VISIT DATE: 02/01/2019 CSN: [id number] PCP: Physician No Clinical Impression: 1. Chronic low back pain without sciatica, unspecified back pain laterality ED Disposition ED Disposition Condition Comment Discharge Stable Jez Haider discharged to home/self care in stable condition. Follow-up Information 1. [facility]. [address] [place] [address] [phone] Contact information for after-discharge care Follow-up information has not been specified. MDM Number of Diagnoses or Management Options Diagnosis management comments: Patient presents to the emergency department complaint of low back pain. He has no erythema or rash. He has good strength of all extremities. Good pulses. He reports he has cerebral palsy and sometimes gets spasms in his back and legs. He is requesting his muscle relaxer be switched because they ordered him Skelaxin and it was too expensive. I did discuss with him that I could write him for Norflex although I do not know the cost. He does not want Flexeril because he has had some issues with that before. Chief Complaint Patient presents with Medication Refill Patient presents to the emergency department complaint of low back pain. He reports that he has cerebral palsy and gets muscle spasms. He was seen here last week and they gave him a prescription for prednisone and Skelaxin. He reports when he went to the pharmacy to fill the Skelaxin it was $70 and he could not afford it. He reports he came in today just to see if we could switch this muscle relaxer to a different muscle relaxer. He is requesting no Flexeril since he had some trouble with that one in the past. He denies any fall or injury. No numbness or tingling. No weakness. No fever or chills. Past Medical History: Diagnosis Date CP (cerebral palsy) (HCC) Past Surgical History: Procedure Laterality Date ORTHOPEDIC SURGERY History reviewed. No pertinent family history. Social History Socioeconomic History Marital status: Single Spouse name: Not on file Number of children: Not on file Years of education: Not on file Highest education level: Not on file Occupational History Not on file Social Needs Financial resource strain: Not on file Food insecurity: Worry: Not on file Inability: Not on file Transportation needs: Medical: Not on file Non-medical: Not on file Tobacco Use Smoking status: Never Smoker Smokeless tobacco: Never Used Substance and Sexual Activity Alcohol use: Never Frequency: Never Drug use: Never Sexual activity: Not on file Lifestyle Physical activity: Days per week: Not on file Minutes per session: Not on file Stress: Not on file Relationships Social connections: Talks on phone: Not on file Gets together: Not on file Attends lutheran service: Not on file Active member of club or organization: Not on file Attends meetings of clubs or organizations: Not on file Relationship status: Not on file Other Topics Concern Not on file Social History Narrative Not on file Previous Medications Medication Sig cyclobenzap-irritant cntr irr2 10 mg Kit 10 mg . naproxen (NAPROSYN) 125 mg/5 mL suspension 500 mg . [DISCONTINUED] metaxalone (SKELAXIN) 800 MG tablet Take 0.5 (one-half) tablet (400 mg total) by mouth 3 (three) times a day as needed for muscle spasms . Allergies Allergen Reactions Latex Hives Review of Systems Constitutional: Negative for chills and fever. Respiratory: Negative for cough, shortness of breath and wheezing. Cardiovascular: Negative for chest pain and palpitations. Gastrointestinal: Negative for abdominal pain, diarrhea, nausea and vomiting. Musculoskeletal: Positive for back pain. Negative for neck pain. Skin: Negative for rash. Neurological: Negative for dizziness, syncope, weakness, light-headedness and headaches. All other systems reviewed and are negative. Positives and pertinent negatives as per HPI. All other systems were reviewed and are negative. Patient Vitals for the past 24 hrs: BP Temp Temp src Pulse Resp SpO2 Height Weight 02/01/19 2153 125/78 97.4 F (36.3 C) Oral (!) 106 18 97 % 5' 7 51.8 kg (114 lb 3.2 oz) Physical Exam Vitals signs and nursing note reviewed. Constitutional: General: He is not in acute distress. Appearance: He is well-developed. HENT: Head: Normocephalic and atraumatic. Nose: Nose normal. Eyes: Conjunctiva/sclera: Conjunctivae normal. Cardiovascular: Rate and Rhythm: Normal rate and regular rhythm. Heart sounds: Normal heart sounds. Pulmonary: Effort: Pulmonary effort is normal. No respiratory distress. Breath sounds: Normal breath sounds. No wheezing. Abdominal: General: Bowel sounds are normal. There is no distension. Palpations: Abdomen is soft. Tenderness: There is no tenderness. There is no guarding or rebound. Musculoskeletal: Normal range of motion. General: No swelling, tenderness or deformity. Comments: Mild tenderness to the low back Skin: General: Skin is warm and dry. Capillary Refill: Capillary refill takes less than 2 seconds. Findings: No erythema or rash. Neurological: General: No focal deficit present. Mental Status: He is alert and oriented to person, place, and time. Sensory: No sensory deficit. Motor: No weakness. Laboratory & Radiographic Imaging (if done): No results found for this visit on 02/01/19. No orders to display Procedures The patient has been informed that they may have pre-hypertension or hypertension based on a blood pressure reading in the Emergency Department. I recommend that the patient call the primary care provider listed on their discharge instructions or a physician of their choice as soon as possible to arrange follow-up in the next 4 weeks for further evaluation of possible pre-hypertension or hypertension. . New Prescriptions orphenadrine (NORFLEX) 100 mg tablet Take 1 (one) tablet (100 mg total) by mouth 2 (two) times a day for 5 days . Discontinued Medications Disp Refills Start End metaxalone (SKELAXIN) 800 MG tablet 12 tablet 0 01/17/2019 02/01/2019 Sig: Take 0.5 (one-half) tablet (400 mg total) by mouth 3 (three) times a day as needed for muscle spasms . Class: Print Route: Oral Reason for Discontinue: Cost of medication Bita Kline DO, FACEP Attending Physician [facility] Emergency Department Bita Kline DO 02/01/19 2219 I was here last week and they gave me a script for a muscle relaxer but it is too expensive and I want to see if they gave prescribe something else documented in this encounter ED Attestation Note - Fareed Skelton MD - 12/16/2018 6:59 PM EDTAssessment & Plan Note - Lexa Stephens MD - 05/24/2019 8:16 PM EST Miscellaneous Notes (unrecog nized section and content) ED Attestation: I was personally available for consult in the ED for this patient, if the Advanced Practice Provider (MONICA) needed any assistance. The MONICA evaluated the patient independently for a complaint of No chief complaint on file., and completed their own examination, documentation, and discharge. documented in this encounter Associated Problem(s): Achilles tendon contracture per chart review, s/p bilateral achilles lengthening in 2018 documented in this encounter ED Attestation: I was personally available for consult in the ED for this patient, if the Advanced Practice Provider (MONICA) needed any assistance. The MONICA evaluated the patient independently for a complaint of Generalized Body Aches and Shortness of Breath, and completed their own examination, documentation, and discharge. Zac Cohen MD Emergency Department Physician documented in this encounter ED Attestation: I have reviewed the Advanced Practice Provider's (MONICA's) documention. In addition, I have personally introduced myself to the patient, and have taken his history and performed an examination. I agree with the physical findings, management, clinical impression and disposition. In brief, he is a 19 y.o. male who presents with a chief complaint of Leg Pain; Generalized Body Aches; and Post-op Problem. After my evaluation, I noticed he is awake, alert, well-appearing, ambulating normally in the emergency department. He is requesting to leave and unwilling to wait for us to speak to his physician in [place] because he needs to go to work. Kevin Skelton MD ED Attending Physician [facility] Emergency Department (Please note that portions of this note have been completed with a voice recognition software. Efforts were made to correct any errors, but occasionally words are mis-transcribed.) documented in this encounter Source Comments (unrecognize d section and content) In the event this informatio n is protected by the Federal Confidentiality of Alcohol and Drug Abuse Patient Records regulations: The Federal rules restrict any use of the information to criminally investigate or prosecute any alcohol or drug abuse patient.[facility] the event this information is protected by the Federal Confidentiality of Alcohol and Drug Abuse Patient Records regulations: The Federal rules restrict any use of the information to criminally investigate or prosecute any alcohol or drug abuse patient.[facility] Center[facility] the event this information is protected by the Federal Confidentiality of Alcohol and Drug Abuse Patient Records regulations: The Federal rules restrict any use of the information to criminally investigate or prosecute any alcohol or drug abuse patient.[facility] the event this information is protected by the Federal Confidentiality of Alcohol and Drug Abuse Patient Records regulations: The Federal rules restrict any use of the information to criminally investigate or prosecute any alcohol or drug abuse patient.[facility] the event this information is protected by the Federal Confidentiality of Alcohol and Drug Abuse Patient Records regulations: The Federal rules restrict any use of the information to criminally investigate or prosecute any alcohol or drug abuse patient.[facility] the event this information is protected by the Federal Confidentiality of Alcohol and Drug Abuse Patient Records regulations: The Federal rules restrict any use of the information to criminally investigate or prosecute any alcohol or drug abuse patient.[facility] Center[facility] the event this information is protected by the Federal Confidentiality of Alcohol and Drug Abuse Patient Records regulations: The Federal rules restrict any use of the information to criminally investigate or prosecute any alcohol or drug abuse patient.[facility] Center[facility] the event this information is protected by the Federal Confidentiality of Alcohol and Drug Abuse Patient Records regulations: The Federal rules restrict any use of the information to criminally investigate or prosecute any alcohol or drug abuse patient.[facility] Center[facility] the event this information is protected by the Federal Confidentiality of Alcohol and Drug Abuse Patient Records regulations: The Federal rules restrict any use of the information to criminally investigate or prosecute any alcohol or drug abuse patient.[facility] Center[facility] the event this information is protected by the Federal Confidentiality of Alcohol and Drug Abuse Patient Records regulations: The Federal rules restrict any use of the information to criminally investigate or prosecute any alcohol or drug abuse patient.[facility] Center[facility] the event this information is protected by the Federal Confidentiality of Alcohol and Drug Abuse Patient Records regulations: The Federal rules restrict any use of the information to criminally investigate or prosecute any alcohol or drug abuse patient.[facility] Center[facility] the event this information is protected by the Federal Confidentiality of Alcohol and Drug Abuse Patient Records regulations: The Federal rules restrict any use of the information to criminally investigate or prosecute any alcohol or drug abuse patient.[facility] Center[facility] the event this information is protected by the Federal Confidentiality of Alcohol and Drug Abuse Patient Records regulations: The Federal rules restrict any use of the information to criminally investigate or prosecute any alcohol or drug abuse patient.[facility] Care Teams (unrecognized sec tion and content) Television Technician Relationship Specialty Start Date End Date Lexa Stephens MD [address] [place] [address] [address] [place] [address] PCP - General Internal Medicine 10/31/19 Television Technician Relationship Specialty Start Date End Date Lexa Stephens MD [address] [place] [address] Dr [address] [place] [address] PCP - General Internal Medicine 10/31/19 Television Technician Relationship Specialty Start Date End Date Lexa Stephens MD [address] [place] [address] Dr [address] [place] [address] PCP - General Internal Medicine 10/31/19 Television Technician Relationship Specialty Start Date End Date Lexa Stephens MD PCP - General Internal Medicine 10/31/19 Television Technician Relationship Specialty Start Date End Date [address] [address] PCP - General 11/13/22 Television Technician Relationship Specialty Start Date End Date Lexa Stephens MD PCP - General Internal Medicine 10/31/19 Television Technician Relationship Specialty Start Date End Date Lexa Stephens MD PCP - General Internal Medicine 10/31/19 Television Technician Relationship Specialty Start Date End Date Generic Provider, No Assigned PcpMD [address] [place] [address] PCP - General Family Medicine 05/10/23 Scheduled Active and Recently Administ ered Medications (unrecognized section and content) Scheduled Medication Order 05/08/2023 05/09/2023 05/10/2023 naproxen (Naprosyn) tablet 500 mg (COMPLETED) 500 mg, oral, Once, On Jacqui 05/10/23 at 0210, For 1 dose, If ordered PRN for pain, nurse is permitted to administer this medication for higher pain scores based on patient preference? Yes 0213 (Given - Provid er: Soni Reardon RN) FOR RECORDS PERTAINING TO PATIENTS WHO ARE OR HAVE BEEN ENROLLED IN A CHEMICAL DEPENDENCY/SUBSTANCEABUSE PROGRAM, SOME INFORMATION MAY BE OMITTED. This clinical summary was aggregated from multiple sources. Caution should be exercised in using it in the provision of clinical care. This summary normalizes information from multiple sources, and as a consequence, information in this document may materially change the coding, format and clinical context of patient data. In addition, data may be omitted in some cases. CLINICAL DECISIONS SHOULD BE BASED ON THE PRIMARY CLINICAL RECORDS. [facility]. provides no warranty or guarantee of the accuracy or completeness of information in this document.
[2023-07-07 01:33] LABS: Amorphous Sediment 2+; Bacteria 1+ /hpf (None Seen)
--- NOTE | 2023-07-07 02:25 | EDS_ITS ---
HPI History of Present Illness Chief Complaint: Nausea/Vomiting Detail of Chief Complaint: Nausea after eating 2-1/2 slices of pizza Informant: patient Onset/Context/Timing Onset: Hours Context: Sudden Onset Timing: Continuous Quality: Nausea Location: GI Current Severity: Mild Maximum Severity: Moderate Worsened by: Nothing Relieved by: Nothing Associated Symptoms Associated Symptoms: Not feeling well Narrative Narrative: Patient is a 23-year-old male with no significant past medical history who presents because he feels nauseous after eating 2 and half slices of pizza. No one else ate the pizza. He has had no vomiting diarrhea. [place] fever or chills. He has not been sleeping well. He denies headache, visual, ocular auditory symptoms. He denies rhinorrhea, congestion or sore throat. He denies cough or shortness of breath. He denies chest pain. He denies urologic symptoms. He denies myalgias arthralgias. Denies any skin lesions. Prior similar symptoms: No Recent Illness/Hospitalization: No PFSH PFSH Medical History Cerebral palsy Herniated lumbar disc without myelopathy Migraines Home Medications ondansetron 4 mg disintegrating tablet 4 mg PO Q8H PRN PRN Nausea #5 tabs 07/07/23 [Rx Last Taken Unknown] Allergy/AdvReac Type Severity Reaction Status Date / Time latex Allergy Hives Verified 03/14/23 21:01 adhesive tape AdvReac Rash Verified 03/14/23 21:01 Surgical History History of appendectomy Social History Smoking Status: Never smoker alcohol intake: never substance use type: does not use ROS ROS ED Constitutional Constitutional ED: Denies chills, fever(s), subjective, sweats or weight loss Eyes Eyes: Denies blurry vision, change in vision or diplopia ENT ENT ED: Denies ear pain, rhinorrhea or sore throat Cardiovascular Cardiovascular: Denies chest pain or palpitations Respiratory/Chest Respiratory/Chest: Denies cough, dyspnea or dyspnea on exertion Gastrointestinal Gastrointestinal: Reports nausea; Denies abdominal pain, constipation, diarrhea, melena or vomiting Genitourinary Genitourinary ED: Denies dysuria, hematuria or urinary frequency Musculoskeletal Musculoskeletal: Denies arthralgias, back pain or myalgias Integumentary Denies rash Neurologic Neurologic: Denies weakness Psychiatric Psychiatric: Denies anxiety or depression Hematologic/Lymphatic Hematologic/Lymphatic: Reports systems reviewed and no addt'l complaints, except as documented EXAM Physical Exam Const Vital Signs: 07/07/23 00:16 Temperature 97 F L Temperature Source Oral Pulse Rate 79 Respiratory Rate 16 Blood Pressure 147/87 H Blood Pressure Mean 107 Pulse Ox 98 Oxygen Delivery Method Room Air Positive well nourished and well developed Constitutional Narrative: Patient appears pale and ill. Does not appear toxic. He does not appear in distress. General Appearance ED: well developed and pallor; Negative for cyanotic or diaphoretic HEENT Reports moist mucous membranes HEENT Narrative: Head is atraumatic and normocephalic. Ears are normal. TMs are normal. Nares patent. Posterior pharynx out erythema or exudate. Eyes PERRL and EOMs intact bilaterally General Eye ED: Negative for pale conjunctiva or scleral icterus Neck no lymphadenopathy, supple and no JVD Chest Wall inspection of chest normal Resp normal respiratory effort and clear to auscultation bilaterally Cardio regular rate, regular rhythm, S1 normal heart sound, S2 normal heart sound and no murmurs GI normal to inspection, nondistended, normoactive bowel sounds, non-tender, non- distended and no masses; Negative for hepatosplenomegaly Back/Spine no CVA tenderness Extremity normal to inspection Neuro oriented x3 and CN's II-XII intact bilaterally Sensorium / Orientation: alert Psych mental status grossly normal Skin no rashes or lesions noted, no wounds and skin turgor normal General Skin Exam: pallor; Negative for elasticity normal or jaundice MDM MDM MDM Narrative Medical decision making narrative: Patient may have indigestion, could be early viral illness. Patient was treated with Zofran for his nausea. He does not appear dehydrated therefore fluids nor labs were ordered. Lab Data Attestation: I reviewed the patient's lab results. Lab results narrative: Urine reveals ketones and urobilinogen. There is also 2+ bacteria with no pyuria or hematuria microscopic. Therefore, will send culture. Labs: Laboratory Results - last 24 hr 07/07/23 00:54 Urine Color Yellow Urine Clarity Cloudy Urine pH 7.0 Ur Specific [place] 1.015 Urine Protein 15 H Urine Glucose (UA) Normal Urine Ketones 50 H Urine Occult Blood Negative Urine Nitrite Negative Urine Bilirubin Negative Urine Urobilinogen 1 H Ur Leukocyte Esterase Negative Urine RBC 0 SEEN Urine WBC 0 SEEN Ur Squamous Epith Cells 0 SEEN Amorphous Sediment 2+ Urine Bacteria 1+ Urine Mucus 0 SEEN Treatment and Re-Evaluation :: Patient was reassessed at 0222. He states he feels markedly better he appears and looks better. Plan is to discharge home with prescription for Zofran. Discharge Plan Triage Chief Complaint: Nausea/Vomiting ED Provider: Ashvin Durant Dx/Rx/DC Orders Clinical Impression: Bacteriuria, Nausea alone, Ketosis Instructions: ED Vomiting (Adult) Prescriptions: New ondansetron [ondansetron] 4 mg tablet,disintegrating 4 mg PO Q8H PRN PRN (Reason: Nausea) Qty: 5 0RF Primary Care Provider: Adam Paiz Referrals: Adam Paiz MD [Primary Care Provider] - 3-5 Days if not improving Disposition Disposition: Home, Self Care
[2023-07-07 03:00] VITALS: BP 106/75; PULSE 81; RESP 16; O2SAT 99
== END 2023-07-07 03:01 | disposition home or self-care (01) ==
PROVIDERS: Emergency Provider Emergency Medicine; PCP Family Medicine; Visit Provider Emergency Medicine
DX: R82.71 Bacteriuria (principal); E88.89 Other specified metabolic disorders; R11.0 Nausea
CPT/HCPCS: 81001; 87086; 99282

== ENCOUNTER 2023-08-15 20:52 | Emergency (ER) | payer MEDICAID, SELFPAY ==
[2023-08-15 20:52] VITALS: BP 109/59; PULSE 79; RESP 18; TEMP 36.6; O2SAT 97; BMI 19.4
--- NOTE | 2023-08-15 21:22 | EX.ED.UPPERE ---
HPI History of Present Illness Chief Complaint: Upper Extremity Injury Narrative Narrative: 23-year-old male who denies significant past medical history presents with 3 weeks of right fourth and fifth digit numbness and may be some in his third digit of his right hand. He is right-hand dominant. While he denies any injury, he states that it is worse when he bowls and cups his right wrist. Also, when he is at work and is trying to lift things above his head, he can get numbness of his fingers especially fourth and fifth digits. He noticed that it was going more into his wrist over the last few days. He denies any fevers or chills, numbness is worse with movement. [facility] Medical History Cerebral palsy Herniated lumbar disc without myelopathy Migraines Home Medications ondansetron 4 mg disintegrating tablet 4 mg PO Q8H PRN PRN Nausea #5 tabs 07/07/23 [Rx Last Taken Unknown] Allergy/AdvReac Type Severity Reaction Status Date / Time latex Allergy Hives Verified 08/15/23 20:56 adhesive tape AdvReac Rash Verified 08/15/23 20:56 Surgical History History of appendectomy Social History Smoking Status: Never smoker alcohol intake: never substance use type: does not use ROS ROS ED ROS Narrative Constitutional: No fever, no chills. HEENT: No sore throat. No neck pain. No loss of vision. No rhinorrhea. Cardiovascular: No chest pain. No palpitations. No pedal edema. Respiratory: No cough, no shortness of breath. Abdominal: No abdominal pain. No nausea. No vomiting. Genitourinary: No dysuria. No hematuria. Musculoskeletal: No myalgias. No arthralgias. Neurologic: No headaches. No dizziness. No lightheadedness. Paresthesias and numbness of fourth and fifth digits on right hand and somewhat in his third digit. Numbness worsened with flexion of the right wrist. Skin: No rash. No change in color. Psychiatric: No depression. No anxiety. EXAM Physical Exam Narrative Exam Narrative: Afebrile. Vital signs noted. HEENT: Normocephalic. Atraumatic. PERRL, EOMI. Neck soft and supple. No point tenderness or step off. Cardiovascular: Regular rate and rhythm. No murmurs, rubs, or gallops appreciated. Respiratory: No tachypnea. Lungs clear to auscultation bilaterally. Gastrointestinal: Abdomen soft, nontender, with normoactive bowel sounds. No rebound or guarding. Neurological: Awake. Alert. Nonfocal, nonlateralizing. Subjective numbness of fourth and fifth digits on right hand. Full range of motion of fingers including abduction and abduction. Good capillary refill of fingers. Flexion extension of wrist intact. Palpable radial pulse. Skin: No rash. Normal color. No pallor. Musculoskeletal: No pedal edema. Full range of motion extremities. 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 I do not feel laboratory work is indicated. He will be placed in a cock up wrist splint and told to continue elevation and rest of his right wrist as he may have more of a tendinitis/bursitis in his wrist as well. He will follow-up with his primary care provider for possible outpatient imaging versus physical therapy. He may need referral to a hand specialist as well. At this point in time, as his symptoms have been ongoing for 3 to 4 weeks, I feel he can be discharged to follow-up. He will take [id number] naproxen as needed. Return instructions to the emergency department were reviewed. Disposition is discharged home in stable condition. 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 Take ibuprofen or naproxen as directed. Follow-up with your primary care provider. You may need outpatient imaging or referral to a hand specialist for the numbness in your fourth and fifth fingers. Disposition Disposition: Home, Self Care
--- OUTSIDE RECORDS SUMMARY | 2023-08-15 21:26 | XMS RPT_ITS | CCD ---
Author Name Unknown Address [id number] [place] [address] Organization [facility] Care Team Providers Care Landscape Horticulture Instructor Name Role Phone Bonita Ramos PA-C Unavailable [phone] Adam Paiz Unavailable Unavailable LATANYA RENO Unavailable [...] Care Provider UnavailLexa Starr Primary Care Provider [phone] LEXA STEPHENS Attending Unavailable LEXA STEPHENS Primary Care Unavailable LEXA STEPHENS Attending Unavailable LEXA STEPHENS Primary Care Unavailable LEXA STEPHENS Admitting Unavailable REJI RIVERA Attending Unavail able LEXA STEPHENS Referring Unavailable LEXA STEPHENS Primary Care Unavailable NO, PHYSICIAN Primary Care Unavailable BITA BARRY Attending Unavailab le NO, PHYSICIAN Primary Care Unavailable BITA KLINE Attending Unavailable BITA KLINE Admitting Unavailable NO, PHYSICIAN Primary Care Unavailable TAWANA HUGGINS Attending Unavailable TAWANA HUGGINS Admitting Unavailable TAWANA DUFFY Admitting Unavailable NO, PHYSICIAN Primary Care Unavailable NO, PHYSICIAN Primary Care Unavailable BITA KLINE Attending Unavailable BITA KLINE HENDRIX Admitting Unavailable LEXA STEPHENS Primary Care [...] Unavailab Lexa Gonzalez MD Primary Care Provider [phone] MIRI MCMAHON, ANANYA MONTENEGRO Primary Care Physicia n Lexa Stephens MD Primary Care Provider [phone] Lexa Stephens MD Primary Care Provider [employer], [facility] Primary Care Provider Unav YAMILA Reese Attending Unavailable INC, [facility] Primary Care Unavailable Lexa Stephens MD Primary Care Provider [phone] LEXA STEPHENS Primary Care Unavailable LEXA STEPHENS Primary Care Unavailable Generic Provider MD, No Assigned Pcp Primary Car e Provider Unavailable Allergies Allergy Classification Reported Allergen(s) Allergy Type Date of Onset Reaction(s) Facility (20 sources) Latex; Translations: [LATEX] Propensity to adverse reactions (disorder) [facility] Medications Current Medications Medication Drug Class(es) [...] Body temperature 97.2 [degF] No Generic Provider [facility] 05-10-2023 03:41-0500 Diastolic blood pressure 99 mm[Hg] No Generic Provider [facility] 05-10-2023 03:41-0500 Heart rate 95 /min No Generic Provider [facility] 05-10-2023 03:41-0500 Respiratory rate 16 /min No Generic Provider [facility] 05-10-2023 03:41-0500 SaO2% (BldA) [Mass fraction] 97 % No Generic Provider [facility] 05-10-2023 03:41-0500 Systolic blood pressure 147 mm[Hg] No Generic Provider [facility] 05-10-2023 01:51-0500 Body height 170.2 cm No Generic Provider [facility] 05-10-2023 01:51-0500 Body mass index (BMI) [Ratio] 19.42 kg/m2 No Generic Provider [facility] 05-10-2023 01:51-0500 Body weight 56.25 kg No Generic Provider [facility] 03-05-2023 13:47-0400 Body temperature 97.3 [degF] Rodolfo Nicholson MD Work Phone: [facility] 03-05-2023 13:47-0400 Body weight 54.34 kg Rodolfo Nicholson MD Work Phone: [facility] 03-05-2023 13:47-0400 Diastolic blood pressure 72 mm[Hg] Rodolfo Nicholson MD Work Phone: [facility] 03-05-2023 13:47-0400 Heart rate 65 /min Rodolfo Nicholson MD Work Phone: [facility] 03-05-2023 13:47-0400 Respiratory rate 18 /min Rodolfo Nicholson MD Work Phone: [facility] 03-05-2023 13:47-0400 SaO2% (BldA) [Mass fraction] 99 % Rodolfo Nicholson MD Work Phone: [facility] 03-05-2023 13:47-0400 Systolic blood pressure 123 mm[Hg] Rodolfo Nicholson MD Work Phone: [facility] 12-05-2022 16:38-0400 Body temperature 97.39 [degF] Alicia Isidro APRN.RADIOGRAPHER Work Phone: [facility] 12-05-2022 16:38-0400 Body weight 53.34 kg Alicia Isidro APRN.RADIOGRAPHER Work Phone: [facility] 12-05-2022 16:38-0400 Diastolic blood pressure 70 mm[Hg] Alicia Isidro APRN.RADIOGRAPHER Work Phone: [facility] 12-05-2022 16:38-0400 Heart rate 99 /min Alicia Isidro APRN.RADIOGRAPHER Work Phone: [facility] 12-05-2022 16:38-0400 Respiratory rate 18 /min Alicia Isidro APRN.RADIOGRAPHER Work Phone: [facility] 12-05-2022 16:38-0400 SaO2% (BldA) [Mass fraction] 98 % Alicia Isidro APRN.RADIOGRAPHER Work Phone: [facility] 12-05-2022 16:38-0400 Systolic blood pressure 122 mm[Hg] Alicia Isidro APRN.RADIOGRAPHER Work Phone: [facility] 11-13-2022 10:51-0400 Body temperature 97.39 [degF] Yamila Torres MD Work Phone: [facility] 11-13-2022 10:51-0400 Body weight 54.43 kg Yamila Torres MD Work Phone: [facility] 11-13-2022 10:51-0400 Diastolic blood pressure 78 mm[Hg] Yamila Torres MD Work Phone: [facility] 11-13-2022 10:51-0400 Heart rate 68 /min Yamila Torres MD Work Phone: [facility] 11-13-2022 10:51-0400 Respiratory rate 16 /min Yamila Torres MD Work Phone: [facility] 11-13-2022 10:51-0400 SaO2% (BldA) [Mass fraction] 99 % Yamila Torres MD Work Phone: [facility] 11-13-2022 10:51-0400 Systolic blood pressure 145 mm[Hg] Yamila Torres MD Work Phone: [facility] 03-06-2022 11:55-0400 Heart rate 88 /min Nirmala Bogner PA-C Work Phone: [facility] 03-06-2022 11:44-0400 Body temperature 97 [degF] Nirmala Bogner PA-C Work Phone: [facility] 03-06-2022 11:44-0400 Body weight 55.16 kg Nirmala Bogner PA-C Work Phone: [facility] 03-06-2022 11:44-0400 Diastolic blood pressure 82 mm[Hg] Nirmala Bogner PA-C Work Phone: [facility] 03-06-2022 11:44-0400 Respiratory rate 18 /min Nirmala Bogner PA-C Work Phone: [facility] 03-06-2022 11:44-0400 SaO2% (BldA) [Mass fraction] 97 % Nirmala Bogner PA-C Work Phone: [facility] 03-06-2022 11:44-0400 Systolic blood pressure 130 mm[Hg] Nirmala Bloom PA-C Work Phone: [facility] 02-06-2022 13:45-0400 Body temperature 97.81 [degF] Basilio King COVER MAT MACHINE OPERATOR.RADIOGRAPHER Work Phone: [facility] 02-06-2022 13:45-0400 Body weight 53.98 kg Basilio King COVER MAT MACHINE OPERATOR.RADIOGRAPHER Work Phone: [facility] 02-06-2022 13:45-0400 Diastolic blood pressure 70 mm[Hg] Basilio King COVER MAT MACHINE OPERATOR.RADIOGRAPHER Work Phone: [facility] 02-06-2022 13:45-0400 Heart rate 78 /min Basilio King COVER MAT MACHINE OPERATOR.RADIOGRAPHER Work Phone: [facility] 02-06-2022 13:45-0400 Respiratory rate 16 /min Basilio José Miguel COVER MAT MACHINE OPERATOR.RADIOGRAPHER Work Phone: [facility] 02-06-2022 13:45-0400 SaO2% (BldA) [Mass fraction] 96 % Basilio Valdez COVER MAT MACHINE OPERATOR.RADIOGRAPHER Work Phone: [facility] 02-06-2022 13:45-0400 Systolic blood pressure 124 mm[Hg] Basilio Valdez COVER MAT MACHINE OPERATOR.RADIOGRAPHER Work Phone: [facility] 09-30-2021 21:19-0400 Body height 170.2 cm LEXA MCGEE DO [facility] 09-30-2021 21:19-0400 Body temperature 97.88 [degF] LEXA MCGEE DO [facility] 09-30-2021 21:19-0400 Body weight 55.5 kg LEXA MCGEE DO [facility] 09-30-2021 21:19-0400 Diastolic blood pressure 86 mm[Hg] LEXA MCGEE DO [facility] 09-30-2021 21:19-0400 Heart rate 75 /min LEXA MCGEE DO [facility] 09-30-2021 21:19-0400 Respiratory rate 18 /min LEXA MCGEE DO [facility] 09-30-2021 21:19-0400 Systolic blood pressure 138 mm[Hg] LEXA MCGEE DO [facility] 05-20-2021 00:09-0500 Body temperature 97.7 [degF] AMILCAR REESE MD [facility] 05-20-2021 00:09-0500 Diastolic blood pressure 72 mm[Hg] AMILCAR REESE MD [facility] 05-20-2021 00:09-0500 Heart rate 73 /min AMILCAR REESE MD [facility] 05-20-2021 00:09-0500 Respiratory rate 16 /min AMILCAR REESE MD [facility] 05-20-2021 00:09-0500 Systolic blood pressure 125 mm[Hg] AMILCAR REESE MD [facility] 12-01-2019 19:55-0400 BMI (Body Mass Index) 18.48 kg/m2 [facility] 12-01-2019 19:55-0400 Body Temperature 98.29 [degF] [facility] 12-01-2019 19:55-0400 Body weight 53.52 kg [facility] 12-01-2019 19:55-0400 BP Diastolic 73 mm[Hg] [facility] 12-01-2019 19:55-0400 BP Systolic 134 mm[Hg] [facility] 12-01-2019 19:55-0400 Height 170.2 cm [facility] 12-01-2019 19:55-0400 Pulse (Heart Rate) 92 /min [facility] 12-01-2019 19:55-0400 Pulse Oximetry 97 % [facility] 12-01-2019 19:55-0400 Respiratory Rate 18 /min [facility] 07-03-2019 17:00-0500 BP Diastolic 76 mm[Hg] [facility] 07-03-2019 17:00-0500 BP Systolic 130 mm[Hg] [facility] 07-03-2019 17:00-0500 Pulse (Heart Rate) 69 /min [facility] 06-01-2019 03:08-0500 BP Diastolic 69 mm[Hg] [facility] 06-01-2019 03:08-0500 BP Systolic 129 mm[Hg] [facility] 06-01-2019 03:08-0500 Pulse (Heart Rate) 86 /min [facility] 06-01-2019 03:08-0500 Pulse Oximetry 99 % [facility] 06-01-2019 03:08-0500 Respiratory Rate 16 /min [facility] 05-31-2019 23:54-0500 Body Temperature 97.5 [degF] [facility] 05-31-2019 23:54-0500 BMI (Body Mass Index) 19.73 kg/m2 [facility] 05-31-2019 23:54-0500 Body weight 57.15 kg [facility] 05-31-2019 23:54-0500 Height 170.2 cm [facility] 2019 16:08-0500 BP Diastolic 70 mm[Hg] Lexa [facility] 2019 16:08-0500 BP Systolic 110 mm[Hg] Lexa Stephens [facility] 2019 15:39-0500 BMI (Body Mass Index) 18.01 kg/m2 Lexa Stephens [facility] 2019 15:39-0500 Body weight 52.16 kg Lexa Stephens [facility] 2019 15:39-0500 Pulse (Heart Rate) 82 /min Lexa Stephens [facility] 2019 15:39-0500 Pulse Oximetry 96 % Lexa Stephens [facility] 2019 15:39-0500 Respiratory Rate 16 /min Lexa Stephens [facility] 04-11-2019 23:50-0400 BMI (Body Mass Index) 19.73 kg/m2 [facility] 04-11-2019 23:50-0400 Body Temperature 97.59 [degF] [facility] 04-11-2019 23:50-0400 Body weight 57.15 kg [facility] 04-11-2019 23:50-0400 BP Diastolic 72 mm[Hg] [facility] 04-11-2019 23:50-0400 BP Systolic 127 mm[Hg] [facility] 04-11-2019 23:50-0400 Height 170.2 cm [facility] 04-11-2019 23:50-0400 Pulse (Heart Rate) 67 /min [facility]ita [facility] 04-11-2019 23:50-0400 Pulse Oximetry 97 % [facility] 04-11-2019 23:50-0400 Respiratory Rate 18 /min [facility] 02-07-2019 04:22-0400 BMI (Body Mass Index) 18.17 kg/m2 [facility] 02-07-2019 04:22-0400 Body Temperature 97.3 [degF] [facility] 02-07-2019 04:22-0400 Body weight 52.62 kg Tawana [facility] 02-07-2019 04:22-0400 BP Diastolic 89 mm[Hg] [facility] 02-07-2019 04:22-0400 BP Systolic 146 mm[Hg] [facility] 02-07-2019 04:22-0400 Height 170.2 cm [facility] 02-07-2019 04:22-0400 Pulse (Heart Rate) 73 /min [facility] 02-07-2019 04:22-0400 Pulse Oximetry 98 % [facility] 02-07-2019 04:22-0400 Respiratory Rate 16 /min [facility] 02-01-2019 21:53-0400 BMI (Body Mass Index) 17.89 kg/m2 [facility] 02-01-2019 21:53-0400 Body Temperature 97.39 [degF] [facility] 02-01-2019 21:53-0400 Body weight 51.8 kg [facility] 02-01-2019 21:53-0400 BP Diastolic 78 mm[Hg] [facility] 02-01-2019 21:53-0400 BP Systolic 125 mm[Hg] [facility] 02-01-2019 21:53-0400 Height 170.2 cm [facility] 02-01-2019 21:53-0400 Pulse (Heart Rate) 106 /min [facility] 02-01-2019 21:53-0400 Pulse Oximetry 97 % [facility] 02-01-2019 21:53-0400 Respiratory Rate 18 /min [facility] 12-16-2018 18:35-0400 Body Temperature 97.39 [degF] [facility] 12-16-2018 18:35-0400 BP Diastolic 74 mm[Hg] [facility] 12-16-2018 18:35-0400 BP Systolic 148 mm[Hg] [facility] 12-16-2018 18:35-0400 Pulse (Heart Rate) 78 /min [facility] 12-16-2018 18:35-0400 Pulse Oximetry 98 % [facility] 12-16-2018 18:35-0400 Respiratory Rate 16 /min [facility] 12-16-2018 18:33-0400 BMI (Body Mass Index) 19.58 kg/m2 [facility] 12-16-2018 18:33-0400 Body weight 56.7 kg [facility] 12-16-2018 18:33-0400 Height 170.2 cm [facility] 10-07-2018 00:30-0400 BP Diastolic 63 mm[Hg] Kevin [facility] 10-07-2018 00:30-0400 BP Systolic 115 mm[Hg] [facility] 10-07-2018 00:30-0400 Pulse (Heart Rate) 63 /[facility]-07-[facility] 00:30-0400 Pulse [facility]ximetry 97 % [facility] 10-07-2018 00:30-0400 Respiratory Rate 17 /min [facility] 10-06-2018 21:54-0400 BMI (Body Mass Index) 20.18 kg/m2 [facility] 10-06-2018 21:54-0400 Body Temperature 97.81 [degF] [facility] 10-06-2018 21:54-0400 Height 167.6 cm [facility] 10-06-2018 21:54-0400 Weight 56.7 kg [facility] 04-02-2017 08:03-0400 BMI (Body Mass Index) 19.85 kg/m2 Bonita Ramos MINGOBroderick [facility] [employer] Work Phone: 04-02-2017 08:03-0400 Body Temperature 97.7 [degF] Bonita AGUILA-C [facility] [employer] Work Phone: 04-02-2017 08:03-0400 BP Diastolic 78 mm[Hg] [facility]Jose [facility] [employer] Work Phone: 04-02-2017 08:03-0400 BP Systolic 147 mm[Hg] Bonita Ramos PA-C [facility] [employer] Work Phone: 04-02-2017 08:03-0400 Height 167.64 cm Bonita Ramos PA-C [facility] [employer] Work Phone: 04-02-2017 08:03-0400 Pulse (Heart Rate) 80 /min Bonita Ramos PA-C [facility] [employer] Work Phone: 04-02-2017 08:03-0400 Respiratory Rate 18 /min Bonita Ramos PA-C [facility] [employer] Work Phone: 04-02-2017 08:03-0400 Weight 55.79 kg Bonita Ramos PA-C [facility] [employer] Work Phone: Encounters Encounter Date Encounter Type Care Provider Facility Start: 05-10-2023 End: 05-10-2023 Emergency department patient visit No Generic Provider [facility] Emergency Medicine Procedures Date Procedure Procedure Detail [...] of 2) Zoster Vaccines (1 of 2) [facility] Start: 2029 DTaP/Tdap/Td Vaccines (6 - Td or Tdap) DTaP/Tdap/Td Vaccines (6 - Td or Tdap) [facility] Start: 2029 Tetanus vaccination [facility] Start: 2029 Urine microalbumin profile [facility] Start: 02-09-2023 Influenza vaccination [facility] Start: 06-11-2022 DEPRESSION ASSESSMENT DEPRESSION ASSESSMENT [facility] Start: 02-09-2022 Influenza vaccination [facility] Start: 06-11-2021 DEPRESSION ASSESSMENT DEPRESSION ASSESSMENT [facility] Start: 2020 Depression screening using PHQ-9 (Patient Health Questionnaire 9) score DEPRESSION SCREENING (PHQ9) [facility] Start: 08-08-2019 End: 08-08-2019 Treatment [facility] Start: 08-05-2019 End: 08-05-2019 Treatment 08/05/2019 Treatment Rehabilitation Susy Paiz, [facility] Start: 08-01-2019 End: 08-01-2019 Treatment 08/01/2019 Treatment Rehabilitation Zara Osborne, [facility] Start: 07-29-2019 End: 07-29-2019 Treatment [facility] Start: 07-25-2019 End: 07-25-2019 Treatment 07/25/2019 Treatment Rehabilitation Zara Osborne [facility] Start: 07-22-2019 End: 07-22-2019 Treatment 07/22/2019 Treatment Rehabilitation Zara Osborne [facility] Start: 07-18-2019 End: 07-18-2019 Treatment 07/18/2019 Treatment Rehabilitation Zara Osborne [facility] Start: 07-15-2019 End: 07-15-2019 Treatment 07/15/[address], PT [facility] Start: 07-11-2019 End: 07-11-2019 Treatment 07/11/2019 Treatment Rehabilitation Zara Osborne [facility] Start: 07-09-2019 End: 07-09-2019 Treatment 07/09/2019 Treatment Rehabilitation Lexa Stephens MD [address] [place] [address] [phone] Zara Osborne [facility] Start: 07-08-2019 End: 07-08-2019 Treatment 07/08/[address], [facility] Start: 06-19-2019 End: 06-19-2019 Office Visit 06/19/2019 Office Visit Physical Medicine and Rehabilitation Lexa Stephens MD [address] [place] [address] [phone] Dao Matthews MD [address] [place] [address] [phone] [facility] Start: 06-10-2019 End: 06-10-2019 Evaluation 06/10/2019 Evaluation Rehabilitation Lexa Stephens MD [address] [place] [address] [phone], [facility] Start: 05-30-2019 End: 05-30-2019 Evaluation 05/30/2019 Evaluation Rehabilitation Lexa Stephens MD [address] [place] [address] [address] [place] [address] [phone], [facility] Start: 02-09-2019 Influenza vaccination given SEQUENTIAL INFLUENZA VACCINE (#1) [facility] Start: 02-09-2018 Influenza vaccination given SEQUENTIAL INFLUENZA VACCINE (#1) [facility] Start: 04-02-2017 End: 04-02-[address] [facility] Work Phone: Start: 2016 HEPATITIS C SCREENING HEPATITIS C SCREENING [facility] Start: 2016 Hepatitis C screening Hepatitis C Screening [facility] Start: 2016 HIV SCREENING HIV SCREENING [facility] Start: 05-12-2015 End: 05-12-2015 Radex clavicle complete X-Ray, Clavicle [facility] Work Phone: Start: 2014 Meningococcal B Vaccine: Consider Based On Risk (1 of 2 - Patient Seeks Protection) Meningococcal B Vaccine: Consider Based On Risk (1 of 2 - Patient Seeks Protection) [facility] Start: 2013 Vaccination for human papillomavirus HPV VACCINES (1 - Male 3-dose series) [facility] Start: 2012 PEDS TO ADULT TRANSITION ANNUAL ASSESSMENT PEDS TO ADULT TRANSITION ANNUAL ASSESSMENT [facility] Start: 2010 Adult depression screening assessment DEPRESSION SCREENING [facility] Start: 2010 PEDS TO ADULT TRANSITION INITIAL DISCUSSION PEDS TO ADULT TRANSITION INITIAL DISCUSSION [facility] Start: 2009 HPV VACCINE (1 - Male 2-dose series) HPV VACCINE (1 - Male 2-dose series) [facility] Start: 2009 HPV Vaccines (1 - Male 2-dose series) HPV Vaccines (1 - Male 2-dose series) [facility] Start: 2009 Vaccination for human papillomavirus HPV VACCINES (1 - Male 2-dose series) [facility] Start: 2008 MENINGOCOCCAL B: Consider based on risk (1 of 2 - Risk Bexsero 2-dose series) MENINGOCOCCAL B: Consider based on risk (1 of 2 - Risk Bexsero 2-dose series) [facility] Start: 2007 HPV VACCINE (1 - Male 2-dose series) HPV VACCINE (1 - Male 2-dose series) [facility] Start: 04-01-2004 Varicella vaccination Varicella Vaccines (1 of 2 - 2-dose childhood series) [facility] Start: 2003 COVID-19 VACCINE (#1) COVID-19 VACCINE (#1) [facility] Start: 2003 COVID-19 VACCINE (1) COVID-19 VACCINE (1) [facility] Start: 2001 History and physical examination, annual for health maintenance Wellness Visit [facility] Start: 1998 COVID-19 VACCINE (#1) COVID-19 VACCINE (#1) [facility] Start: 1998 HIV screening HIV Screening [facility] Start: 1998 Lipid panel Lipid Panel [facility] Start: 1998 Tetanus vaccination TETANUS EVERY 10 YR [facility] Start: 1998 Yearly Adult Physical Yearly Adult Physical [facility] STAT 06/01/2019 2:59 AM EST [facility] End: 02-07-2019 S. pyogenes Org specific cx Ql (Throat) Strep A Culture, Throat Microbiology BARRY Once for 1 Occurrences starting 02/07/2019 until 02/07/2019, 1 completed [facility] Immunizations Immunization Date Immunization Notes Care Provider Tomas zuluaga 2019 diphtheria, tetanus toxoids and acellular pertussis vaccine, unspecified formulation [facility] 2019 Seasonal, quadrivale nt, recombinant, injectable influenza vaccine, preservative free [facility] 2019 tetanus toxoid, redu arleth diphtheria toxoid, and acellular pertussis vaccine, adsorbed [facility] 2019 flu vac qv 2019,18yr up,rc,PF, (FLUBLOK QUAD) syringe [facility] 2019 influenza virus vacc ine, unspecified formulation Yamila Torres MD Work Phone: [facility] 12-24-2015 meningococcal polysaccharide (groups A, C, Y and W-135) diphtheria toxoid conjugate vaccine (MCV4P) [facility] 03-04-2004 measles, mumps and rubella virus vaccine Geremias Layla DO Work Phone: [facility] 03-04-2004 poliovirus vaccine, inactivated Geremias Layla DO Work Phone: [facility] 03-04-2003 diphtheria, tetanus toxoids and acellular pertussis vaccine, unspecified formulation Geremias Layla DO Work Phone: [facility] 07-10-2001 diphtheria, tetanus toxoids and acellular pertussis vaccine, unspecified formulation Geremias Layla DO Work Phone: [facility] 07-10-2001 hepatitis B vaccine, pediatric or pediatric/adolescent dosage Geremias Layla DO Work Phone: [facility] 07-10-2001 poliovirus vaccine, inactivated Geremias Layla DO Work Phone: [facility] 07-11-2000 diphtheria, tetanus toxoids and acellular pertussis vaccine, unspecified formulation Egremias Layla DO Work Phone: [facility] 07-11-2000 hepatitis B vaccine, pediatric or pediatric/adolescent dosage Geremias Layla DO Work Phone: [facility] 07-11-2000 poliovirus vaccine, inactivated Geremias Layla DO Work Phone: [facility] 09-29-1999 diphtheria, tetanus toxoids and acellular pertussis vaccine, unspecified formulation Geremias Layla DO Work Phone: [facility] 09-29-1999 haemophilus influenz ae type b conjugate and Hepatitis B vaccine Geremias Layla DO Work Phone: [facility] 09-29-1999 measles, mumps and rubella virus vaccine Geremias Layla DO Work Phone: [facility] 09-29-1999 trivalent poliovirus vaccine, live, oral Geremias Layla DO Work Phone: [facility] Payers Date Payer Category Payer Medicaid [id number] 2021 Unknown [facility] AND DISABLED [id number] 2021-Present [address] [place] [address] [id number] 2018 Medicaid [id number] 2018 Medicaid [employer] MEDICAID [employer] MEDICAID xxxxxxxxxxx 2018-Present xxxxxxxxxxx [id number] 2017 Medicaid [employer] A[employer] MEDICAID [id number] 2017-Present [phone] [address] [place] [address] Medicaid [id number]. [id number] 2017 Medicaid [id number]. 1.13.159.2.7.3. [id number] 1998 Unknown [id number] 2.16.840.1.698792.3.579.2.297 1998 Unknown [id number] 2.16.840.1.439156.3.579.2.297 1998 Unknown [id number] 2.16.840.1.274466.3.579.2.297 1998 Unknown [id number] 2.16.840.1.836979.3.579.2.297 1998 Unknown [id number] 2.16.840.1.142606.3.579.2.903 1998 Unknown [id number] 2.16.840.1.050108.3.579.2.903 1998 Unknown [id number] 2.16.840.1.921761.3.579.2.903 1998 Unknown [id number] 2.16.840.1.994478.3.579.2.903 1998 Unknown [id number] 2.16.840.1.644496.3.579.2.903 1998 Unknown [id number] 2.16.840.1.961049.3.579.2.903 1998 Unknown [id number] 2.16.840.1.236644.3.579.2.903 1998 Unknown [id number] 2.16.840.1.638636.3.579.2.903 1998 Unknown [id number] 2.16.840.1.140547.3.579.2.903 1998 Unknown [id number] 2.16.840.1.354668.3.579.2.903 1998 Unknown [id number] 2.16.840.1.708246.3.579.2.903 1998 Unknown [id number] 2.16.840.1.875838.3.579.2.903 1998 Unknown [id number] 2.16.840.1.225515.3.579.2.903 1998 Unknown [id number] 2.16.840.1.857888.3.579.2.903 1998 Unknown [id number] 2.16.840.1.909579.3.579.2.903 Unknown [id number] 2.16.840.1.410716.3.579.2.443 Social History Date Type Detail Facility Start: 10-06-2018 End: 05-10-2023 Tobacco smoking status NHIS Never smoker [facility] Start: 10-06-2018 End: 2019 History SDOH Alcohol Frequency 1 [facility] Start: 2000 Sex Assigned At Not on file [facility] Start: 02-07-2019 End: 05-31-2019 Alcohol intake Lifetime non-drinker (finding) [facility] Start: 10-30-2019 History SDOH Physica l Activity DPW 5 [facility] Start: 10-30-2019 History SDOH Physica l Activity MPS 4 [facility] Start: 09-04-2021 End: 05-10-2023 Exposure to SARS-CoV-2 (event) Not sure [facility] Start: 11-17-2020 End: 03-05-2023 Alcohol intake Current non-drinker of alcohol (finding) [facility] Start: 01-09-2018 End: 05-10-2023 Tobacco use and exposure Smokeless tobacco [facility]user [facility] Start: 03-05-2023 End: 05-10-2023 History of Social function [facility] Start: 03-05-2023 End: 05-10-2023 Tobacco use panel [facility] Retired 07/10/2019 P HQ Score 0 [facility] Functional Status Date Assessment Result Facility 09-30-2021 Functional Status [facility] 09-30-2021 Functional Status [facility] Mental Status Date Assessment Result Facility 09-30-2021 Mental Status [facility] 09-30-2021 Mental Status [facility] Clinical Notes 07-30-2020 to 05-10-2023 Marcy Galeas PA-C - 05/10/2023 1:57 AM Mary Kay Galeas PA-C - 05/10/2023 1:57 AM Rodolfo Ellison MD - 03/05/2023 1:50 PM EDTAlicia Isidro APRN.[facility] - 12/05/2022 4:52 PM EDT Note Date [...] Stephanie Emery 05/10/2023 2:55 AM Dictation workstation: [id number] XR wrist right 3+ views Final Result No acute osseous abnormality. MACRO: None Signed by: Stephanie Emery 05/10/2023 2:54 AM Dictation workstation: [id number] Procedure Procedures Marcy Galeas PA-C 05/10/23 0301 documented in this encounter [facility] Work Phone: 05-10-2023 Physician Emergency department Note [...] Stephanie Emery 05/10/2023 2:55 AM Dictation workstation: [id number] XR wrist right 3+ views Final Result No acute osseous abnormality. MACRO: None Signed by: Stephanie Emery 05/10/2023 2:54 AM Dictation workstation: [id number] Procedure Procedures Marcy Galeas PA-C 05/10/23 0301 [facility] Work Phone: 03-05-2023 Note HNO ID: [id number] Author: Rodolfo Nicholson MD Service: ? Author [...] follow up with PCP. Rodolfo Nicholson MD [facility] 03-05-2023 History of Presen t illness [...] Rodolfo Nicholson MD documented in this encounter [facility] 12-05-2022 Note HNO ID: [id number] Author: Alicia Isidro APRN.RADIOGRAPHER Service: ? Author Type: Nurse Practitioner Type: [...] S TENDON - ACHILLES Bilateral 01/30/2018 [facility] ALLERGIES Latex MEDICATIONS tiZANidine (ZANAFLEX) 4 mg [...] agreeable to treatment plan. Alicia Isidro APRN.MYLA [facility] 12-05-2022 History of Presen t illness [...] S TENDON - ACHILLES Bilateral 01/30/2018 [facility] ALLERGIES Latex MEDICATIONS tiZANidine (ZANAFLEX) 4 mg [...] Alicia Isidro APRN.MYLA documented in this encounter [facility] 11-13-2022 Emergency department Note Patient discharged in no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 Why: If symptoms worsen [address] [place] [address] Contact information for after-discharge care Follow-up [...] palsy. He went to a specialist, at [facility], Dr. Martinez. He says that he was [...] any pallor, paresthesia. History provided by: Patient records management analyst used: No Leg Pain Associated symptoms: no [...] file Gets together: Not on file Attends latter-day service: Not on file Active member of [...] conjunction with the immunization order to satisfy [place] [employer] Positive ID requirements for [...] expedite correspondence this note was generated by [employer] voice recognition software. Some grammatical or spelling errors may occur using the system. ZHANNA Em, ENP-C ED Nurse Practitioner [facility] Emergency Department (Please note that portions of this note have been completed with a voice recognition software. Efforts were made to correct any errors, but occasionally words are mis-transcribed.) Maureen Poe CNP 12/01/19 0711 Pt in [place] states am I going [...] documented in this encounter ED PROVIDER NOTE [facility] EMERGENCY DEPARTMENT NAME: Jez Haider AGE: 18 y.o. : 2000 VISIT DATE: 02/01/2019 CSN: [id number] PCP: Physician No Clinical Impression: 1. Chronic low back pain without sciatica, unspecified back pain laterality ED Disposition ED Disposition Condition Comment Discharge Stable Jez Haider discharged to home/self care in stable condition. Follow-up Information 1. [facility]. [address] [place] [address] [phone] Contact information for after-discharge care Follow-up information [...] file Gets together: Not on file Attends latter-day service: Not on file Active member of [...] medication Bita Kline DO, FACEP Attending Physician [facility] Emergency Department Bita Kline DO 02/01/19 [...] us to speak to his physician in [place] because he needs to go to work. Kevin Skelton MD ED Attending Physician [facility] Emergency Department (Please note that portions [...] or prosecute any alcohol or drug abuse patient.[facility] Hospital[facility] the event this information is protected by the Federal Confidentiality of Alcohol and Drug Abuse Patient Records regulations: The Federal rules restrict any use of the information to criminally investigate or prosecute any alcohol or drug abuse patient.[facility] Hospital[facility] the event this information is protected by the Federal Confidentiality of Alcohol and Drug Abuse Patient Records regulations: The Federal rules restrict any use of the information to criminally investigate or prosecute any alcohol or drug abuse patient.[facility] Hospital[facility] the event this information is protected by the Federal Confidentiality of Alcohol and Drug Abuse Patient Records regulations: The Federal rules restrict any use of the information to criminally investigate or prosecute any alcohol or drug abuse patient.[facility] Hospital[facility] the event this information is protected by the Federal Confidentiality of Alcohol and Drug Abuse Patient Records regulations: The Federal rules restrict any use of the information to criminally investigate or prosecute any alcohol or drug abuse patient.[facility] HospitalIn the event this information is protected by the Federal Confidentiality of Alcohol and Drug Abuse Patient Records regulations: The Federal rules restrict any use of the information to criminally investigate or prosecute any alcohol or drug abuse patient.[facility] Hospital[facility] the event this information is protected by the Federal Confidentiality of Alcohol and Drug Abuse Patient Records regulations: The Federal rules restrict any use of the information to criminally investigate or prosecute any alcohol or drug abuse patient.[facility] Hospital[facility] the event this information is protected by the Federal Confidentiality of Alcohol and Drug Abuse Patient Records regulations: The Federal rules restrict any use of the information to criminally investigate or prosecute any alcohol or drug abuse patient.[facility] Hospital[facility] the event this information is protected by the Federal Confidentiality of Alcohol and Drug Abuse Patient Records regulations: The Federal rules restrict any use of the information to criminally investigate or prosecute any alcohol or drug abuse patient.[facility] HospitalIn the event this information is protected by the Federal Confidentiality of Alcohol and Drug Abuse Patient Records regulations: The Federal rules restrict any use of the information to criminally investigate or prosecute any alcohol or drug abuse patient.[facility] Hospital[facility] the event this information is protected by the Federal Confidentiality of Alcohol and Drug Abuse Patient Records regulations: The Federal rules restrict any use of the information to criminally investigate or prosecute any alcohol or drug abuse patient.[facility] Hospital[facility] the event this information is protected by the Federal Confidentiality of Alcohol and Drug Abuse Patient Records regulations: The Federal rules restrict any use of the information to criminally investigate or prosecute any alcohol or drug abuse patient.[facility] HospitalIn the event this information is protected by the Federal Confidentiality of Alcohol and Drug Abuse Patient Records regulations: The Federal rules restrict any use of the information to criminally investigate or prosecute any alcohol or drug abuse patient.[facility] Care Teams (unrecognized sec tion and content) Landscape Horticulture Instructor Relationship Specialty Start Date End Date Lexa Stephens MD [address] [place] [address] [address] [place] [address] PCP - General Internal Medicine 10/31/19 Landscape Horticulture Instructor Relationship Specialty Start Date End Date Lexa Stephens MD [address] [place] [address] [address] [place] [address] PCP - General Internal Medicine 10/31/19 Landscape Horticulture Instructor Relationship Specialty Start Date End Date Lexa Stephens MD [address] [place] [address] [address] [place] [address] PCP - General Internal Medicine 10/31/19 Landscape Horticulture Instructor Relationship Specialty Start Date End Date Lexa Stephens MD PCP - General Internal Medicine 10/31/19 Landscape Horticulture Instructor Relationship Specialty Start Date End Date [address] [address] PCP - General 11/13/22 Landscape Horticulture Instructor Relationship Specialty Start Date End Date Lexa Stephens MD PCP - General Internal Medicine 10/31/19 Landscape Horticulture Instructor Relationship Specialty Start Date End Date Lexa Stephens MD PCP - General Internal Medicine 10/31/19 Landscape Horticulture Instructor Relationship Specialty Start Date End Date Generic Provider, No Assigned Pcp[facility] [address] [place] [address] PCP - General Family Medicine 05/10/23 Scheduled [...] BE BASED ON THE PRIMARY CLINICAL RECORDS. [facility] provides no warranty or guarantee of the accuracy or completeness of information in this document.
== END 2023-08-15 21:45 | disposition home or self-care (01) ==
PROVIDERS: Emergency Provider Emergency Medicine; PCP Family Medicine; Visit Provider Emergency Medicine
DX: G56.21 Lesion of ulnar nerve, right upper limb (principal); G80.9 Cerebral palsy, unspecified
CPT/HCPCS: 99283

== ENCOUNTER 2023-08-21 03:40 | Emergency (ER) | payer MEDICARE, MEDICAID, SELFPAY ==
[2023-08-21 03:41] VITALS: TEMP 36.9; BMI 20.7
[2023-08-21 04:02] VITALS: BP 137/72; PULSE 70; RESP 16; O2SAT 100
--- NOTE | 2023-08-21 04:29 | ED.VIS.BACK ---
HPI History of Present Illness Chief Complaint: Back Informant: patient Narrative Narrative: 23-year-old male presenting to the emergency room with recurring chronic back pain. Patient has a history of cerebral palsy. He was told within the past year that he has got degenerative disc disease and underwent what sounds like a back injection in [place] about 6 months ago. He states that this did seem to help until about a week ago when he began to have some low back discomfort and over the past 3 nights has had decreased sleep due to pain. It is nonradiating in nature no bowel or bladder dysfunction. No fevers. States that he called his doctor and they are not able to see him until the end of October. PFSH PFS Medical History Cerebral palsy Herniated lumbar disc without myelopathy Migraines Home Medications ondansetron 4 mg disintegrating tablet 4 mg PO Q8H PRN PRN Nausea #5 tabs 07/07/23 [Rx Last Taken Unknown] cyclobenzaprine 10 mg tablet 10 mg PO TID PRN Muscle Spasm #15 TABLETS 08/21/23 [Rx Last Taken Unknown] naproxen 500 mg tablet 500 mg PO BID #14 tabs 08/21/23 [Rx Last Taken Unknown] Allergy/AdvReac Type Severity Reaction Status Date / Time latex Allergy Hives Verified 08/21/23 04:03 adhesive tape AdvReac Rash Verified 08/21/23 04:03 Surgical History History of appendectomy Social History Smoking Status: Never smoker alcohol intake: never substance use type: does not use ROS ROS ED Constitutional Constitutional ED: Denies chills, fever(s) or weight loss Eyes Eyes: Denies change in vision or diplopia ENT ENT ED: Denies ear pain, rhinorrhea or sore throat Cardiovascular Cardiovascular: Denies chest pain, orthopnea, palpitations or racing heartbeat Respiratory/Chest Respiratory/Chest: Denies cough, dyspnea or orthopnea Gastrointestinal Gastrointestinal: Denies abdominal pain, diarrhea, nausea or vomiting Genitourinary Genitourinary ED: Denies dysuria, hematuria or urinary frequency Musculoskeletal Musculoskeletal: Reports back pain; Denies arthralgias, myalgias or neck pain Integumentary Denies abscess or rash Neurologic Neurologic: Denies headache(s), paresthesias or weakness Psychiatric Psychiatric: Denies anxiety, depression, suicidal ideation or suicidal thoughts Endocrine Endocrinology: Denies polydipsia, polyphagia or polyuria Allergic/Immunologic Allergic/Immunologic ED: Denies mouth swelling, tongue swelling or urticaria EXAM Physical Exam Const Vital Signs: 08/21/23 03:41 08/21/23 04:02 Temperature 98.5 F Temperature Source Temporal Pulse Rate 70 Respiratory Rate 16 Blood Pressure 137/72 H Blood Pressure Mean 93 Pulse Ox 100 Oxygen Delivery Method Room Air Positive well nourished and well developed General Appearance ED: well developed HEENT Reports normocephalic, head/scalp atraumatic and moist mucous membranes Eyes PERRL and EOMs intact bilaterally Neck no lymphadenopathy, supple and no JVD Resp normal respiratory effort and clear to auscultation bilaterally Cardio regular rate, regular rhythm and no murmurs GI normal to inspection, nondistended, normoactive bowel sounds and non-tender Palpation: soft Back/Spine Back/Spine Narrative: Patient with a scoliotic like curve. He has tenderness palpation in the lumbar paraspinal musculature. I do not appreciate a midline tenderness. He moves around fairly easily. Neurologically he appears intact without deficits Extremity normal to inspection General Extremety ED: Negative for edema General Extremity: Negative for edema Neuro oriented x3, CN's II-XII intact bilaterally and no sensory deficits noted Sensorium / Orientation: alert Motor Exam: strength 5/5 throughout Deep Tendon Reflexes: Rt Patellar (L4): 2+, Lt Patellar (L4): 2+, Rt Ankle (S1): 2+ and Lt Ankle (S1): 2+ Deep Tendon Reflexes Back: Rt Patellar (L4): 2+, Lt Patellar (L4): 2+, Rt Ankle (S1): 2+ and Lt Ankle (S1): 2+ Psych mental status grossly normal Mood & Affect: Negative for depressed or tearful Skin no rashes or lesions noted and no wounds MDM MDM MDM Narrative Medical decision making narrative: Patient drove himself to the emergency department tonight. Only give him a dose of Toradol. It is mostly acute on chronic and most likely muscular at this point. I do not see acute neurologic deficits to suggest that he would need an emergent MRI. He is wondering if there is a pain management doctor that could see him earlier than in October for more injections. I can give him someone locally. I will write for some Flexeril and anti-inflammatories for home use. History & Record Review Discussion w/independent historian: Patient Additional record(s) reviewed:: Prior ED visit Discharge Plan Triage Chief Complaint: Back ED Provider: Yoshi Buck Dx/Rx/DC Orders Clinical Impression: Degenerative disc disease, lumbar, Acute lumbar back pain Instructions: ED Degenerative Disk Disease Prescriptions: New cyclobenzaprine [cyclobenzaprine] 10 mg tablet 10 mg PO TID PRN (Reason: Muscle Spasm) Qty: 15 0RF naproxen 500 mg tablet 500 mg PO BID Qty: 14 0RF No Action ondansetron [ondansetron] 4 mg tablet,disintegrating 4 mg PO Q8H PRN PRN (Reason: Nausea) Qty: 5 0RF Primary Care Provider: Adam Paiz Referrals: Beverly Pavon MD [Med Staff - Active Staff] - (for pain management) Mata Amaya DO [Non-Staff] - (for pain management) Adam Paiz MD [Primary Care Provider] - 1 Week Disposition Disposition: Home, Self Care
[2023-08-21 04:31] VITALS: BP 137/86; PULSE 74; RESP 19; O2SAT 97
[2023-08-21] MEDS: Ketorolac 60 MG/2 ML Vial IM (04:35)
[2023-08-21 04:37] VITALS: BP 137/86; PULSE 79; RESP 16; TEMP 36.4; O2SAT 96
--- OUTSIDE RECORDS SUMMARY | 2023-08-21 05:00 | XMS RPT_ITS | CCD ---
Author Name Unknown Address [address] [place] [address] Organization [facility] Care Team Providers Care Java Consultant Name Role Phone Bonita Ramos PA-C Unavailable [phone] Adam Paiz Unavailable Unavailable LATANYA RENO Unavailable [...] Care Provider UnavailLexa Starr Primary Care Provider [phone] LEXA STEPHENS Attending Unavailable LEXA STEPHENS Primary [...] Unavailab Lexa Gonzalez MD Primary Care Provider [phone] MIRI MCMAHON, ANANYA MONTENEGRO Primary Care Physicia n Lexa Stephens MD Primary Care Provider [phone] Lexa Stephens MD Primary Care Provider [employer], [facility] Primary Care Provider Unav YAMILA Reese Attending Unavailable INC, [facility] Primary Care Unavailable Lexa Stephens MD Primary Care Provider [phone] LEXA STEPHENS Primary Care Unavailable LEXA STEPHENS Primary Care Unavailable Generic Provider MD, No Assigned Pcp Primary Car e Provider Unavailable Allergies Allergy Classification Reported Allergen(s) Allergy Type Date of Onset Reaction(s) Facility (20 sources) Latex; Translations: [LATEX] Propensity to adverse reactions (disorder) 6 HivesGermain [facility] Repository Medications Current Medications Medication Drug Class(es) [...] Body temperature 97.2 [degF] No Generic Provider [facility] 05-10-2023 03:41-0500 Diastolic blood pressure 99 mm[Hg] No Generic Provider [facility] 05-10-2023 03:41-0500 Heart rate 95 /min No Generic Provider [facility] 05-10-2023 03:41-0500 Respiratory rate 16 /min No Generic Provider [facility] 05-10-2023 03:41-0500 SaO2% (BldA) [Mass fraction] 97 % No Generic Provider [facility] 05-10-2023 03:41-0500 Systolic blood pressure 147 mm[Hg] No Generic Provider [facility] 05-10-2023 01:51-0500 Body height 170.2 cm No Generic Provider [facility] 05-10-2023 01:51-0500 Body mass index (BMI) [Ratio] 19.42 kg/m2 No Generic Provider [facility] 05-10-2023 01:51-0500 Body weight 56.[address] kg No Generic [address] [facility] 03-05-2023 13:47-0400 Body temperature 97.3 [degF] Rodolfo Nicholson MD Work Phone: [facility] 03-05-2023 13:47-0400 Body weight 54.34 kg Rodolfo Nicholson MD Work Phone: [facility] 03-05-2023 13:47-0400 Diastolic blood pressure 72 mm[Hg] Rodolfo Nicholson MD Work Phone: [facility] 03-05-2023 13:47-0400 Heart rate 65 /min Rodolfo Nicholson MD Work Phone: [facility] 03-05-2023 13:47-0400 Respiratory rate 18 /min Rodolfo Nicholson MD Work Phone: [facility] 03-05-2023 13:47-0400 SaO2% (BldA) [Mass fraction] 99 % Rodolfo Nicholson MD Work Phone: [facility] 03-05-2023 13:47-0400 Systolic blood pressure 123 mm[Hg] Rodolfo Nicholson MD Work Phone: [facility] 12-05-2022 16:38-0400 Body temperature 97.39 [degF] Alicia Isidro APRN.MEDICAL MALPRACTICE PARALEGAL Work Phone: [facility] 12-05-2022 16:38-0400 Body weight 53.34 kg Alicia Isidro APRN.MEDICAL MALPRACTICE PARALEGAL Work Phone: [facility] 12-05-2022 16:38-0400 Diastolic blood pressure 70 mm[Hg] Alicia Isidro APRN.MEDICAL MALPRACTICE PARALEGAL Work Phone: [facility] 12-05-2022 16:38-0400 Heart rate 99 /min Alicia Isidro APRN.MEDICAL MALPRACTICE PARALEGAL Work Phone: [facility] 12-05-2022 16:38-0400 Respiratory rate 18 /min Alicia Isidro APRN.MEDICAL MALPRACTICE PARALEGAL Work Phone: [facility] 12-05-2022 16:38-0400 SaO2% (BldA) [Mass fraction] 98 % Alicia Isidro APRN.MEDICAL MALPRACTICE PARALEGAL Work Phone: [facility] 12-05-2022 16:38-0400 Systolic blood pressure 122 mm[Hg] Alicia Isidro APRN.MEDICAL MALPRACTICE PARALEGAL Work Phone: [facility] 11-13-2022 10:51-0400 Body temperature 97.39 [degF] Yamila Torres MD Work Phone: [facility] [employer] 11-13-2022 10:51-0400 Body weight 54.43 kg Yamila Torres MD Work Phone: [facility] [employer] 11-13-2022 10:51-0400 Diastolic blood pressure 78 mm[Hg] Yamila Torres MD Work Phone: [facility] 11-13-2022 10:51-0400 Heart rate 68 /min Yamila Torres MD Work Phone: [facility] [employer] 11-13-2022 10:51-0400 Respiratory rate 16 /min Yamila Torres MD Work Phone: [facility] [employer] 11-13-2022 10:51-0400 SaO2% (BldA) [Mass fraction] 99 % Yamila Torres MD Work Phone: [facility] [employer] 11-13-2022 10:51-0400 Systolic blood pressure 145 mm[Hg] Yamila Torres MD Work Phone: [facility] 03-06-2022 11:55-0400 Heart rate 88 /min Nirmala Bogner PA-C Work Phone: [facility] 03-06-2022 11:44-0400 Body temperature 97 [degF] Nirmala Bogner PA-C Work Phone: [facility] 03-06-2022 11:44-0400 Body weight 55.16 kg Nirmala Bogner PA-C Work Phone: [facility] 03-06-2022 11:44-0400 Diastolic blood pressure 82 mm[Hg] Nirmala Bogner PA-C Work Phone: [facility] 03-06-2022 11:44-0400 Respiratory rate 18 /min Nirmala Bogner PA-C Work Phone: [facility] 03-06-2022 11:44-0400 SaO2% (BldA) [Mass fraction] 97 % Nirmala Bogner PA-C Work Phone: [facility] 03-06-2022 11:44-0400 Systolic blood pressure 130 mm[Hg] Nirmala Bloom PA-C Work Phone: [facility] 02-06-2022 13:45-0400 Body temperature 97.81 [degF] Basilio King GAME FARM HELPER.MEDICAL MALPRACTICE PARALEGAL Work Phone: [facility] 02-06-2022 13:45-0400 Body weight 53.98 kg Basilio King GAME FARM HELPER.MEDICAL MALPRACTICE PARALEGAL Work Phone: [facility] 02-06-2022 13:45-0400 Diastolic blood pressure 70 mm[Hg] Basilio King GAME FARM HELPER.MEDICAL MALPRACTICE PARALEGAL Work Phone: [facility] 02-06-2022 13:45-0400 Heart rate 78 /min Basilio King GAME FARM HELPER.MEDICAL MALPRACTICE PARALEGAL Work Phone: [facility] 02-06-2022 13:45-0400 Respiratory rate 16 /min Basilio José Miguel GAME FARM HELPER.MEDICAL MALPRACTICE PARALEGAL Work Phone: [facility] 02-06-2022 13:45-0400 SaO2% (BldA) [Mass fraction] 96 % Basilio Valdez GAME FARM HELPER.MEDICAL MALPRACTICE PARALEGAL Work Phone: [facility] 02-06-2022 13:45-0400 Systolic blood pressure 124 mm[Hg] Basilio Valdez GAME FARM HELPER.MEDICAL MALPRACTICE PARALEGAL Work Phone: [facility] 09-30-2021 21:19-0400 Body height 170.2 cm ELXA MCGEE DO [facility] 09-30-2021 21:19-0400 Body temperature 97.88 [degF] LEXA MCGEE DO [facility] 09-30-2021 21:19-0400 Body weight 55.5 kg LEXA MCGEE DO [facility] 09-30-2021 21:19-0400 Diastolic blood pressure 86 mm[Hg] LEXA MCGEE DO [facility] 09-30-2021 21:19-0400 Heart rate 75 /min LEXA MCGEE DO [facility] 09-30-2021 21:19-0400 Respiratory rate 18 /min LEXA MCGEE DO [facility] 09-30-2021 21:19-0400 Systolic blood pressure 138 mm[Hg] LEXA MCGEE DO [facility] 05-20-2021 00:09-0500 Body temperature 97.7 [degF] AMILCAR REESE MD [facility] 05-20-2021 00:09-0500 Diastolic blood pressure 72 mm[Hg] AMILCAR REESE MD [facility] 05-20-2021 00:09-0500 Heart rate 73 /min AMILCAR REESE MD [facility] 05-20-2021 00:09-0500 Respiratory rate 16 /min AMILCAR REESE MD [facility] 05-20-2021 00:09-0500 Systolic blood pressure 125 mm[Hg] AMILCAR REESE MD [facility] 12-01-2019 19:55-0400 BMI (Body Mass Index) 18.48 kg/m2 Kevin Skelton [facility] 12-01-2019 19:55-0400 Body Temperature 98.29 [degF] Kevin Skelton [facility] 12-01-2019 19:55-0400 Body weight 53.52 kg Kevin Skelton [facility] 12-01-2019 19:55-0400 BP Diastolic 73 mm[Hg] Kevin Skelton [facility] 12-01-2019 19:55-0400 BP Systolic 134 mm[Hg] Kevin Skelton [facility] 12-01-2019 19:55-0400 Height 170.2 cm Kevin [facility] 12-01-2019 19:55-0400 Pulse (Heart Rate) 92 /min Kevin Skelton [facility] 12-01-2019 19:55-0400 Pulse Oximetry 97 % Kevin [facility] 12-01-2019 19:55-0400 Respiratory Rate 18 /min Kevin Skelton [facility] 07-03-2019 17:00-0500 BP Diastolic 76 mm[Hg] [address] [facility] 07-03-2019 17:00-0500 BP Systolic 130 mm[Hg] [address] [facility] 07-03-2019 17:00-0500 Pulse (Heart Rate) 69 /min [address] [facility] 06-01-2019 03:08-0500 BP Diastolic 69 mm[Hg] Zac Cohen [facility] 06-01-2019 03:08-0500 BP Systolic 129 mm[Hg] Zac Cohen [facility] 06-01-2019 03:08-0500 Pulse (Heart Rate) 86 /min Zac Cohen [facility] 06-01-2019 03:08-0500 Pulse Oximetry 99 % Zac Cohen [facility] 06-01-2019 03:08-0500 Respiratory Rate 16 /min Zac Cohen [facility] 05-31-2019 23:54-0500 Body Temperature 97.5 [degF] Zac Coehn [facility] 05-31-2019 23:54-0500 BMI (Body Mass Index) 19.73 kg/m2 Zac Cohen [facility] 05-31-2019 23:54-0500 Body weight 57.15 kg Zac Cohen [facility] 05-31-2019 23:54-0500 Height 170.2 cm Zac Cohen [facility] 2019 16:08-0500 BP Diastolic 70 mm[Hg] Lexa Stephens [facility] 2019 16:08-0500 BP Systolic 110 mm[Hg] Lexa Stephens [facility] 2019 15:39-0500 BMI (Body Mass Index) 18.01 kg/m2 Lexa Stephens [facility] 2019 15:39-0500 Body weight 52.16 kg Lexa Stephens [facility] 2019 15:39-0500 Pulse (Heart Rate) 82 /min Lexa Stephens [facility] 2019 15:39-0500 Pulse Oximetry 96 % Lexa Stephens [facility] 2019 15:39-0500 Respiratory Rate 16 /min Lexa Stephens [facility] 04-11-2019 23:50-0400 BMI (Body Mass Index) 19.73 kg/m2 Bita Kline [facility] 04-11-2019 23:50-0400 Body Temperature 97.59 [degF] Bita Kline [facility] 04-11-2019 23:50-0400 Body weight 57.15 kg Bita Kline [facility] 04-11-2019 23:50-0400 BP Diastolic 72 mm[Hg] Bita Kline [facility] 04-11-2019 23:50-0400 BP Systolic 127 mm[Hg] Bita Kline [facility] 04-11-2019 23:50-0400 Height 170.2 cm Bita Kline [facility] 04-11-2019 23:50-0400 Pulse (Heart Rate) 67 /min Bita rich [facility] 04-11-2019 23:50-0400 Pulse Oximetry 97 % Bita Kline [facility] 04-11-2019 23:50-0400 Respiratory Rate 18 /min Bita rich [facility] 02-07-2019 04:22-0400 BMI (Body Mass Index) 18.17 kg/m2 [facility] 02-07-2019 04:22-0400 Body Temperature 97.3 [degF] Tawana Huggins [facility] 02-07-2019 04:22-0400 Body weight 52.62 kg Tawana [facility] 02-07-2019 04:22-0400 BP Diastolic 89 mm[Hg] [facility] 02-07-2019 04:22-0400 BP Systolic 146 mm[Hg] Tawana [facility] 02-07-2019 04:22-0400 Height 170.2 cm Tawana [facility] 02-07-2019 04:22-0400 Pulse (Heart Rate) 73 /min [facility] 02-07-2019 04:22-0400 Pulse Oximetry 98 % [facility] 02-07-2019 04:22-0400 Respiratory Rate 16 /min Tawana [facility] 02-01-2019 21:53-0400 BMI (Body Mass Index) 17.89 kg/m2 Bita Kline [facility] 02-01-2019 21:53-0400 Body Temperature 97.39 [degF] Bita Kline [facility] 02-01-2019 21:53-0400 Body weight 51.8 kg Bita Kline [facility] 02-01-2019 21:53-0400 BP Diastolic 78 mm[Hg] Bita Kline [facility] 02-01-2019 21:53-0400 BP Systolic 125 mm[Hg] Bita Kline [facility] 02-01-2019 21:53-0400 Height 170.2 cm Bita Kline [facility] 02-01-2019 21:53-0400 Pulse (Heart Rate) 106 /min Bita Kline [facility] 02-01-2019 21:53-0400 Pulse Oximetry 97 % Bita Kline [facility] 02-01-2019 21:53-0400 Respiratory Rate 18 /min Bita Kline [facility] 12-16-2018 18:35-0400 Body Temperature 97.39 [degF] Fareed Skelton [facility] 12-16-2018 18:35-0400 BP Diastolic 74 mm[Hg] Fareed Skelton [facility] 12-16-2018 18:35-0400 BP Systolic 148 mm[Hg] Fareed Skelton [facility] 12-16-2018 18:35-0400 Pulse (Heart Rate) 78 /min Fareed [facility] 12-16-2018 18:35-0400 Pulse Oximetry 98 % Fareed [facility] 12-16-2018 18:35-0400 Respiratory Rate 16 /min Fareed [facility] 12-16-2018 18:33-0400 BMI (Body Mass Index) 19.58 kg/m2 Fareed [facility] 12-16-2018 18:33-0400 Body weight 56.7 kg Fareed [facility] 12-16-2018 18:33-0400 Height 170.2 cm Fareed [facility] 10-07-2018 00:30-0400 BP Diastolic 63 mm[Hg] Kevin [facility] 10-07-2018 00:30-0400 BP Systolic 115 mm[Hg] Kevin [facility] 10-07-2018 00:30-0400 P[facility] (Heart Rate) 63 /[facility] 10-07-[facility] 00:30-0400 Pulse [facility]ximetry 97 [facility] 10-07-2018 00:30-0400 Respiratory Rate 17 /min Kevin Skelton [facility] 10-06-2018 21:54-0400 BMI (Body Mass Index) 20.18 kg/m2 Kevin Skelton [facility] 10-06-2018 21:54-0400 Body Temperature 97.81 [degF] Kevin Skelton [facility] 10-06-2018 21:54-0400 Height 167.6 cm Kevin Skelton [facility] 10-06-2018 21:54-0400 Weight 56.7 kg Kevin Skelton [facility] 04-02-2017 08:03-0400 BMI (Body Mass Index) 19.85 kg/m2 Bonita Ramos MINGOBroderick [facility] [employer] Work Phone: 04-02-2017 08:03-0400 Body Temperature 97.7 [degF] Bonita AGUILA-C [facility] [employer] Work Phone: 04-02-2017 08:03-0400 BP Diastolic 78 mm[Hg] [facility]Jose [facility] [employer] Work Phone: 04-02-2017 08:03-0400 BP Systolic 147 mm[Hg] Bonita Ramos PA-C [facility] [employer] Work Phone: 04-02-2017 08:03-0400 Height 167.64 cm Bonita Ramos PA-C [facility] [employer] Work Phone: 04-02-2017 08:03-0400 Pulse (Heart Rate) 80 /min Bonita Ramos PA-C [facility] [employer] Work Phone: 04-02-2017 08:03-0400 Respiratory Rate 18 /min Bonita Ramos PA-C [facility] [employer] Work Phone: 04-02-2017 08:03-0400 Weight 55.79 kg Bonita Ramos PA-C [facility] [employer] Work Phone: Encounters Encounter Date Encounter Type Care Provider Facility Start: 05-10-2023 End: 05-10-2023 Emergency department patient visit No Generic Provider [facility] Emergency Medicine Procedures Date Procedure Procedure [...] Platelet poor plasma by Coagulation assay Kevin Sketlon Work Phone: Start: 10-07-2018 LAVENDER TOP Kevin [...] of 2) Zoster Vaccines (1 of 2) [facility] Start: 2029 DTaP/Tdap/Td Vaccines (6 - Td or Tdap) DTaP/Tdap/Td Vaccines (6 - Td or Tdap) [facility] Start: 2029 Tetanus vaccination [facility] Start: 2029 Urine microalbumin profile [facility] Start: 02-09-2023 Influenza vaccination [facility] Start: 06-11-2022 DEPRESSION ASSESSMENT DEPRESSION ASSESSMENT [facility] Start: 02-09-2022 Influenza vaccination [facility] Start: 06-11-2021 DEPRESSION ASSESSMENT DEPRESSION ASSESSMENT [facility] Start: 2020 Depression screening using PHQ-9 (Patient Health Questionnaire 9) score DEPRESSION SCREENING (PHQ9) [facility] Start: 08-08-2019 End: 08-08-2019 Treatment [facility] Start: 08-05-2019 End: 08-05-2019 Treatment 08/05/2019 Treatment Rehabilitation Susy Paiz, [facility] Start: 08-01-2019 End: 08-01-2019 Treatment 08/01/2019 Treatment Rehabilitation Zara Osborne, [facility] Start: 07-29-2019 End: 07-29-2019 Treatment [facility] Start: 07-25-2019 End: 07-25-2019 Treatment 07/25/2019 Treatment Rehabilitation Zara Osborne [facility] Start: 07-22-2019 End: 07-22-2019 Treatment 07/22/2019 Treatment Rehabilitation Zara Osborne [facility] Start: 07-18-2019 End: 07-18-2019 Treatment 07/18/2019 Treatment Rehabilitation Zara Osborne [facility] Start: 07-15-2019 End: 07-15-2019 Treatment 07/15/[address], PT [facility] Start: 07-11-2019 End: 07-11-2019 Treatment 07/11/2019 Treatment Rehabilitation Zara Osborne [facility] Start: 07-09-2019 End: 07-09-2019 Treatment 07/09/2019 Treatment Rehabilitation Lexa Stephens MD [address] [place] [address] [phone] Zara Osborne [facility] Start: 07-08-2019 End: 07-08-2019 Treatment 07/08/[address], [facility] Start: 06-19-2019 End: 06-19-2019 Office Visit 06/19/2019 Office Visit Physical Medicine and Rehabilitation Lexa Stephens MD [address] [place] [address] [phone] Dao Matthews MD [address] [place] [address] [phone] [facility] Start: 06-10-2019 End: 06-10-2019 Evaluation 06/10/2019 Evaluation Rehabilitation Lexa Stephens MD [address] [place] [address] [phone], [facility] Start: 05-30-2019 End: 05-30-2019 Evaluation 05/30/2019 Evaluation Rehabilitation Lexa Stephens MD [address] [place] [address] [address] [place] [address] [phone], [facility] Start: 02-09-2019 Influenza vaccination given SEQUENTIAL INFLUENZA VACCINE (#1) [facility] Start: 02-09-2018 Influenza vaccination given SEQUENTIAL INFLUENZA VACCINE (#1) [facility] Start: 04-02-2017 End: 04-02-2017 Appointment Appointment [facility] Work Phone: Start: 2016 HEPATITIS C SCREENING HEPATITIS C SCREENING [facility] Start: 2016 Hepatitis C screening Hepatitis C Screening [facility] Start: 2016 HIV SCREENING HIV SCREENING [facility] Start: 05-12-2015 End: 05-12-2015 Radex clavicle complete X-Ray, Clavicle [facility] Work Phone: Start: 2014 Meningococcal B Vaccine: Consider Based On Risk (1 of 2 - Patient Seeks Protection) Meningococcal B Vaccine: Consider Based On Risk (1 of 2 - Patient Seeks Protection) [facility] Start: 2013 Vaccination for human papillomavirus HPV VACCINES (1 - Male 3-dose series) [facility] Start: 2012 PEDS TO ADULT TRANSITION ANNUAL ASSESSMENT PEDS TO ADULT TRANSITION ANNUAL ASSESSMENT [facility] Start: 2010 Adult depression screening assessment DEPRESSION SCREENING [facility] Start: 2010 PEDS TO ADULT TRANSITION INITIAL DISCUSSION PEDS TO ADULT TRANSITION INITIAL DISCUSSION [facility] Start: 2009 HPV VACCINE (1 - Male 2-dose series) HPV VACCINE (1 - Male 2-dose series) [facility] Start: 2009 HPV Vaccines (1 - Male 2-dose series) HPV Vaccines (1 - Male 2-dose series) [facility] Start: 2009 Vaccination for human papillomavirus HPV VACCINES (1 - Male 2-dose series) [facility] Start: 2008 MENINGOCOCCAL B: Consider based on risk (1 of 2 - Risk Bexsero 2-dose series) MENINGOCOCCAL B: Consider based on risk (1 of 2 - Risk Bexsero 2-dose series) [facility] Start: 2007 HPV VACCINE (1 - Male 2-dose series) HPV VACCINE (1 - Male 2-dose series) [facility] Start: 04-01-2004 Varicella vaccination Varicella Vaccines (1 of 2 - 2-dose childhood series) [facility] Start: 2003 COVID-19 VACCINE (#1) COVID-19 VACCINE (#1) [facility] Start: 2003 COVID-19 VACCINE (1) COVID-19 VACCINE (1) [facility] Start: 2001 History and physical examination, annual for health maintenance Wellness Visit [facility] Start: 1998 COVID-19 VACCINE (#1) COVID-19 VACCINE (#1) [facility] Start: 1998 HIV screening HIV Screening [facility] Start: 1998 Lipid [address] Lipid Panel [facility] Start: 1998 Tetanus vaccination TETANUS EVERY 10 YR [facility] Start: 1998 Yearly Adult Physical Yearly Adult [facility] [place] [facility] STAT 06/01/2019 2:59 AM EST [facility] End: 02-07-2019 S. pyogenes Org specific cx Ql (Throat) Strep A Culture, Throat Microbiology BARRY Once for 1 Occurrences starting 02/07/2019 until 02/07/2019, 1 completed [facility] Immunizations Immunization Date Immunization Notes Care Provider Tomas zuluaga 2019 diphtheria, tetanus toxoids and acellular pertussis vaccine, unspecified formulation [facility] 2019 Seasonal, quadrivale nt, recombinant, injectable influenza vaccine, preservative free [facility] 2019 tetanus toxoid, redu arleth diphtheria toxoid, and acellular pertussis vaccine, adsorbed [facility] 2019 flu vac qv 2019,18yr up,rc,PF, (FLUBLOK QUAD) syringe [facility] 2019 influenza virus vacc ine, unspecified formulation Yamila Torres MD Work Phone: [facility] 12-24-2015 meningococcal polysaccharide (groups A, C, Y and W-135) diphtheria toxoid conjugate vaccine (MCV4P) [facility] 03-04-2004 measles, mumps and rubella virus vaccine Geremias Layla DO Work Phone: [facility] 03-04-2004 poliovirus vaccine, inactivated Geremias Layla DO Work Phone: [facility] 03-04-2003 diphtheria, tetanus toxoids and acellular pertussis vaccine, unspecified formulation Geremias Layla DO Work Phone: [facility] 07-10-2001 diphtheria, tetanus toxoids and acellular pertussis vaccine, unspecified formulation Geremias Layla DO Work Phone: [facility] 07-10-2001 hepatitis B vaccine, pediatric or pediatric/adolescent dosage Geremias Layla DO Work Phone: [facility] 07-10-2001 poliovirus vaccine, inactivated Geremias Layla DO Work Phone: [facility] 07-11-2000 diphtheria, tetanus toxoids and acellular pertussis vaccine, unspecified formulation Geremias Layla DO Work Phone: [facility] 07-11-2000 hepatitis B vaccine, pediatric or pediatric/adolescent dosage Geremias Layla DO Work Phone: [facility] 07-11-2000 poliovirus vaccine, inactivated Geremias Layla DO Work Phone: [facility] 09-29-1999 diphtheria, tetanus toxoids and acellular pertussis vaccine, unspecified formulation Geremias Layla DO Work Phone: [facility] 09-29-1999 haemophilus influenz ae type b conjugate and Hepatitis B vaccine Geremias Layla DO Work Phone: [facility] 09-29-1999 measles, mumps and rubella virus vaccine Geremias Layla DO Work Phone: [facility] 09-29-1999 trivalent poliovirus vaccine, live, oral Geremias Layla DO Work Phone: [facility] Payers Date Payer Category Payer Medicaid [id number] 2021 Unknown [facility] 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 2018 Medicaid [id number] 2018 Medicaid [employer] MEDICAID [employer] MEDICAID xxxxxxxxxxx 2018-Present xxxxxxxxxxx [id number] 2017 Medicaid [employer] MEDIC AID [employer] MEDICAID [id number] 2017-Present [phone] [address] [place] [address] Medicaid [id number]. [id number] 2017 Medicaid [id number]. [id number] 1998 Unknown [id number] 2.16.840.1.968866.3.579.2.297 1998 Unknown [id number] 2.16.840.1.142992.3.579.2.297 1998 Unknown [id number] 2.16.840.1.719122.3.579.2.297 1998 Unknown [id number] 2.16.840.1.271030.3.579.2.297 1998 Unknown [id number] 2.16.840.1.285456.3.579.2.903 1998 Unknown [id number] 2.16.840.1.263871.3.579.2.903 1998 Unknown [id number] 2.16.840.1.061414.3.579.2.903 1998 Unknown [id number] 2.16.840.1.517646.3.579.2.903 1998 Unknown [id number] 2.16.840.1.882331.3.579.2.903 1998 Unknown [id number] 2.16.840.1.717158.3.579.2.903 1998 Unknown [id number] 2.16.840.1.643639.3.579.2.903 1998 Unknown [id number] 2.16.840.1.649868.3.579.2.903 1998 Unknown [id number] 2.16.840.1.338512.3.579.2.903 1998 Unknown [id number] 2.16.840.1.652801.3.579.2.903 1998 Unknown [id number] 2.16.840.1.615220.3.579.2.903 1998 Unknown [id number] 2.16.840.1.635340.3.579.2.903 1998 Unknown [id number] 2.16.840.1.150492.3.579.2.903 1998 Unknown [id number] 2.16.840.1.399128.3.579.2.903 1998 Unknown [id number] 2.16.840.1.304318.3.579.2.903 Unknown [id number] 2.16.840.1.176857.3.579.2.443 Social History Date Type Detail Facility Start: 10-06-2018 End: 05-10-2023 Tobacco smoking status NHIS Never smoker [facility] Start: 10-06-2018 End: 2019 History SDOH Alcohol Frequency 1 [facility] Start: 2000 Sex Assigned At Not on file [facility] Start: 02-07-2019 End: 05-31-2019 Alcohol intake Lifetime non-drinker (finding) [facility] Start: 10-30-2019 History SDOH Physica l Activity DPW 5 [facility] Start: 10-30-2019 History SDOH Physica l Activity MPS 4 [facility] Start: 09-04-2021 End: 05-10-2023 Exposure to SARS-CoV-2 (event) Not sure [facility] Start: 11-17-2020 End: 03-05-2023 Alcohol intake Current non-drinker of alcohol (finding) [facility] Start: 01-09-2018 End: 05-10-2023 Tobacco use and exposure Smokeless tobacco non-user [facility] Start: 03-05-2023 End: 05-10-2023 History of Social function [facility] Start: 03-05-2023 End: 05-10-2023 Tobacco use panel [facility] Retired 07/10/2019 P HQ Score 0 [facility] Functional Status Date Assessment Result Facility 09-30-2021 Functional Status [facility] [place] 09-30-2021 Functional Status [facility] Mental Status Date Assessment Result Facility 09-30-2021 Mental Status [facility] 09-30-2021 Mental Status [facility] Clinical Notes 07-30-2020 to 05-10-2023 Marcy Galeas PA-C - 05/10/2023 1:57 AM Mary Kay Galeas PA-C - 05/10/2023 1:57 AM Rodolfo Ellison MD - 03/05/2023 1:50 PM EDTAlicia Isidro APRN.[facility] - 12/05/2022 4:52 PM EDT Note [...] Stephanie Emery 05/10/2023 2:55 AM Dictation workstation: [id number] XR wrist right 3+ views Final Result No acute osseous abnormality. MACRO: None Signed by: Stephanie Emery 05/10/2023 2:54 AM Dictation workstation: [id number] Procedure Procedures Marcy Galeas PA-C 05/10/23 0301 documented in this encounter [facility] Work Phone: 05-10-2023 Physician Emergency [...] Stephanie Emery 05/10/2023 2:55 AM Dictation workstation: [id number] XR wrist right 3+ views Final Result No acute osseous abnormality. MACRO: None Signed by: Stephanie Emery 05/10/2023 2:54 AM Dictation workstation: [id number] Procedure Procedures Marcy Galeas PA-C 05/10/[address] [facility] Work Phone: 03-05-2023 Note HNO ID: [id number] Author: Rodolfo Nicholson MD Service: ? Author [...] follow up with PCP. Rodolfo Nicholson MD [facility] 03-05-2023 History of Presen t illness [...] Rodolfo Nicholson MD documented in this encounter [facility] 12-05-2022 Note HNO ID: [id number] Author: Alicia Isidro APRN.MEDICAL MALPRACTICE PARALEGAL Service: ? Author Type: Nurse Practitioner Type: [...] x4 S TENDON - ACHILLES Bilateral 01/30/2018 [facility] ALLERGIES Latex MEDICATIONS tiZANidine (ZANAFLEX) 4 [...] agreeable to treatment plan. Alicia Isidro APRN.MYLA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 Patient monotypist used: No Leg Pain Associated symptoms: no [...] file Gets together: Not on file Attends samaritan service: Not on file Active member of [...] conjunction with the immunization order to satisfy [place] [employer] Positive ID requirements for [...] expedite correspondence this note was generated by [employer] voice recognition software. Some grammatical or spelling errors may occur using the system. ZHANNA Em, ENP-C ED Nurse Practitioner [facility] Emergency Department (Please note that portions of this note have been completed with a voice recognition software. Efforts were made to correct any errors, but occasionally words are mis-transcribed.) Maureen Poe CNP 12/01/19 8162 Pt in [place] states am I going [...] documented in this encounter ED PROVIDER NOTE [facility] EMERGENCY DEPARTMENT NAME: Jez Haider AGE: 18 y.o. : 2000 VISIT DATE: 02/01/2019 CSN: [id number] PCP: Physician No Clinical Impression: 1. Chronic low back pain without sciatica, unspecified back pain laterality ED Disposition ED Disposition Condition Comment Discharge Stable Jez Haider discharged to home/self care in stable condition. Follow-up Information 1. [facility]. [address] [place] [address] [phone] Contact information for after-discharge care Follow-up information [...] file Gets together: Not on file Attends samaritan service: Not on file Active member of [...] medication Bita Kline DO, FACEP Attending Physician [facility] Emergency Department Bita Kline DO 02/01/19 2219 [...] us to speak to his physician in [place] because he needs to go to work. Kevin Skelton MD ED Attending Physician [facility] Emergency Department (Please note [...] or prosecute any alcohol or drug abuse patient.[facility] the event this information is protected by the Federal Confidentiality of Alcohol and Drug Abuse Patient Records regulations: The Federal rules restrict any use of the information to criminally investigate or prosecute any alcohol or drug abuse patient.[facility] Center[facility] the event this information is protected by the Federal Confidentiality of Alcohol and Drug Abuse Patient Records regulations: The Federal rules restrict any use of the information to criminally investigate or prosecute any alcohol or drug abuse patient.[facility] Center[facility] the event this information is protected by the Federal Confidentiality of Alcohol and Drug Abuse Patient Records regulations: The Federal rules restrict any use of the information to criminally investigate or prosecute any alcohol or drug abuse patient.[facility] Center[facility] the event this information is protected by the Federal Confidentiality of Alcohol and Drug Abuse Patient Records regulations: The Federal rules restrict any use of the information to criminally investigate or prosecute any alcohol or drug abuse patient.[facility] CenterIn the event this information is protected by the Federal Confidentiality of Alcohol and Drug Abuse Patient Records regulations: The Federal rules restrict any use of the information to criminally investigate or prosecute any alcohol or drug abuse patient.[facility] Center[facility] the event this information is protected by the Federal Confidentiality of Alcohol and Drug Abuse Patient Records regulations: The Federal rules restrict any use of the information to criminally investigate or prosecute any alcohol or drug abuse patient.[facility] Center[facility] the event this information is protected by the Federal Confidentiality of Alcohol and Drug Abuse Patient Records regulations: The Federal rules restrict any use of the information to criminally investigate or prosecute any alcohol or drug abuse patient.[facility] CenterIn the event this information is protected by the Federal Confidentiality of Alcohol and Drug Abuse Patient Records regulations: The Federal rules restrict any use of the information to criminally investigate or prosecute any alcohol or drug abuse patient.[facility] Center[facility] the event this information is protected by the Federal Confidentiality of Alcohol and Drug Abuse Patient Records regulations: The Federal rules restrict any use of the information to criminally investigate or prosecute any alcohol or drug abuse patient.[facility] Center[facility] the event this information is protected by the Federal Confidentiality of Alcohol and Drug Abuse Patient Records regulations: The Federal rules restrict any use of the information to criminally investigate or prosecute any alcohol or drug abuse patient.[facility] CenterIn the event this information is protected by the Federal Confidentiality of Alcohol and Drug Abuse Patient Records regulations: The Federal rules restrict any use of the information to criminally investigate or prosecute any alcohol or drug abuse patient.[facility] CenterIn the event this information is protected by the Federal Confidentiality of Alcohol and Drug Abuse Patient Records regulations: The Federal rules restrict any use of the information to criminally investigate or prosecute any alcohol or drug abuse patient.[facility] Care Teams (unrecognized sec tion and content) Java Consultant Relationship Specialty Start Date End Date Lexa Stephens MD [address] [place] [address] [address] [place] [address] PCP - General Internal Medicine 10/31/19 Java Consultant Relationship Specialty Start Date End Date Lexa Stephens MD [address] [place] [address] [address] [place] [address] PCP - General Internal Medicine 10/31/19 Java Consultant Relationship Specialty Start Date End Date Lexa Stephens MD [address] [place] [address] [address] [place] [address] PCP - General Internal Medicine 10/31/19 Java Consultant Relationship Specialty Start Date End Date Lexa Stephens MD PCP - General Internal Medicine 10/31/19 Java Consultant Relationship Specialty Start Date End Date [address] [address] PCP - General 11/13/22 Java Consultant Relationship Specialty Start Date End Date Lexa Stephens MD PCP - General Internal Medicine 10/31/19 Java Consultant Relationship Specialty Start Date End Date Lexa Stephens MD PCP - General Internal Medicine 10/31/19 Java Consultant Relationship Specialty Start Date End Date Generic Provider, No Assigned [facility]cp[facility] [address] [place] [address] PCP - General Family Medicine 05/10/23 Scheduled [...] ON THE PRIMARY CLINICAL RECORDS. [facility]. provides no warranty or guarantee of the accuracy or completeness of information in this document.
== END 2023-08-21 04:50 | disposition home or self-care (01) ==
LOC: ED 04:47
PROVIDERS: Emergency Provider Emergency Medicine; PCP Family Medicine; Visit Provider Emergency Medicine
DX: M51.36 Other intervertebral disc degeneration, lumbar region (principal); G80.9 Cerebral palsy, unspecified; G89.29 Other chronic pain; Z79.899 Other long term (current) drug therapy
CPT/HCPCS: 96372; 99282

== ENCOUNTER 2023-10-25 00:25 | Emergency (ER) | payer MEDICARE, MEDICAID, SELFPAY ==
[2023-10-25 00:25] VITALS: BP 144/86; PULSE 108; RESP 18; TEMP 36.9; O2SAT 98; BMI 24.0
--- NOTE | 2023-10-25 00:45 | EX.ED.DYSGE1 ---
HPI History of Present Illness Chief Complaint: General Illness Informant: patient Narrative Narrative: Patient presents secondary to sore throat and cough. He states has been sick for about a week. He was seen at an outside facility 2 days ago and diagnosed with strep. He was placed on amoxicillin and has been taking this for the past day and a half. He states he still has significant cough and was not sure there is a thing else that could be done to help control his symptoms. [facility] Medical History Migraines Herniated lumbar disc without myelopathy Cerebral palsy Home Medications ?Medication ?Instructions ?Recorded ?Last Taken ?Type ondansetron 4 mg disintegrating 4 mg PO Q8H PRN PRN Nausea #5 tabs 07/07/23 Unknown Rx tablet cyclobenzaprine 10 mg tablet 10 mg PO TID PRN Muscle Spasm #15 08/21/23 Unknown Rx TABLETS naproxen 500 mg tablet 500 mg PO BID #14 tabs 08/21/23 Unknown Rx benzonatate 200 mg capsule 200 mg PO BID PRN cough #20 caps 10/25/23 Unknown Rx prednisone 20 mg tablet 40 mg (2 x 20 mg) PO DAILY #8 tabs 10/25/23 Unknown Rx Allergy/AdvReac Type Severity Reaction Status Date / Time latex Allergy Hives Verified 08/21/23 04:03 adhesive tape AdvReac Rash Verified 08/21/23 04:03 Surgical History History of appendectomy Social History Smoking Status: Never smoker alcohol intake: never substance use type: does not use ROS ROS ED Constitutional Constitutional ED: Reports fever(s) and subjective; Denies chills Eyes Eyes: Denies discharge from eye(s) ENT ENT ED: Reports sore throat; Denies discharge from eye(s) or rhinorrhea Cardiovascular Cardiovascular: Denies chest pain or palpitations Respiratory/Chest Respiratory/Chest: Reports cough; Denies dyspnea Gastrointestinal Gastrointestinal: Denies abdominal pain, nausea or vomiting Musculoskeletal Musculoskeletal: Denies back pain or extremity pain Integumentary Denies Abrasions or rash Neurologic Neurologic: Denies headache(s) or weakness Allergic/Immunologic Allergic/Immunologic ED: Denies lip swelling or urticaria EXAM Physical Exam Const Vital Signs: 10/25/23 00:25 10/25/23 00:39 Temperature 98.4 F Temperature Source Temporal Pulse Rate 108 H Respiratory Rate 18 Respiratory Effort Normal Non-Labored Blood Pressure 144/86 H Blood Pressure Mean 105 Pulse Ox 98 Oxygen Delivery Method Room Air Positive well nourished and well developed General Appearance ED: well developed HEENT Reports moist mucous membranes HEENT Narrative: Posterior pharynx exam with only mild tonsillar enlargement. Uvula midline. Eyes EOMs intact bilaterally Neck no lymphadenopathy Chest Wall inspection of chest normal and palpation of chest normal Resp normal respiratory effort and clear to auscultation bilaterally Cardio regular rate and regular rhythm GI non-tender Palpation: soft Neuro oriented x3 and no sensory deficits noted Motor Exam: strength 5/5 throughout Psych mental status grossly normal Skin no rashes or lesions noted MDM MDM MDM Narrative Medical decision making narrative: Patient is already on antibiotics. I will write him a short course of steroids as well as Tessalon Perles to help control some swelling and cough. First dose will be given here with prescription sent to local pharmacy for him. I do not believe repeat swab is needed or any imaging studies. Patient will continue supportive care at home. Discharge Plan Triage Chief Complaint: General Illness ED Provider: Kristel Morales Dx/Rx/DC Orders Clinical Impression: Pharyngitis Instructions: ED Pharyngitis, Strep (Presumed) Prescriptions: New benzonatate 200 mg capsule 200 mg PO BID PRN (Reason: cough) Qty: 20 0RF prednisone 20 mg tablet 40 mg PO DAILY Qty: 8 0RF No Action ondansetron [ondansetron] 4 mg tablet,disintegrating 4 mg PO Q8H PRN PRN (Reason: Nausea) Qty: 5 0RF cyclobenzaprine [cyclobenzaprine] 10 mg tablet 10 mg PO TID PRN (Reason: Muscle Spasm) Qty: 15 0RF naproxen 500 mg tablet 500 mg PO BID Qty: 14 0RF Primary Care Provider: Adam Paiz Referrals: Adam Paiz MD [Primary Care Provider] - 1-2 Weeks Print Language: Luxembourger Disposition Disposition: Home, Self Care
[2023-10-25] MEDS: predniSONE 20 MG Tablet 40 MG PO (01:07)
[2023-10-25] MEDS: Benzonatate 100 MG Capsule 200 MG PO (01:07)
[2023-10-25 01:08] VITALS: BP 135/76; PULSE 95; RESP 18; TEMP 36.8; O2SAT 96
== END 2023-10-25 01:10 | disposition home or self-care (01) ==
LOC: ED 00:58
PROVIDERS: Emergency Provider Emergency Medicine; PCP Family Medicine; Visit Provider Emergency Medicine
DX: J02.0 Streptococcal pharyngitis (principal); G80.9 Cerebral palsy, unspecified; Z79.899 Other long term (current) drug therapy
CPT/HCPCS: 99282

== ENCOUNTER 2023-12-30 05:21 | Emergency (ER) | payer MEDICARE, MEDICAID, SELFPAY ==
[2023-12-30 05:22] VITALS: BP 140/83; PULSE 68; RESP 18; TEMP 36.6; O2SAT 98; BMI 24.3
--- NOTE | 2023-12-30 06:26 | EX.ED.DYSGE1 ---
HPI History of Present Illness Chief Complaint: General Illness Informant: patient Onset/Context/Timing Onset: Today Context: Gradual Onset Timing: Continuous Quality: Fatigue, weakness Location: Generalized Worsened by: Nothing Relieved by: Nothing Narrative Narrative: Patient presents with fatigue, weakness, and nausea that began today. Patient states that he noticed this when he woke up early this morning to go to work. Patient states he has been eating fast food for breakfast, lunch, and dinner yesterday. Patient admits to nausea but denies any vomiting. Patient denies any diarrhea. Patient states he just feels weak and fatigued all over. Patient states nothing makes it better nothing makes it worse. Patient denies any fevers or chills. Patient denies any chest pain or shortness of breath. [facility] Medical History Migraines Herniated lumbar disc without myelopathy Cerebral palsy Home Medications ?Medication ?Instructions ?Recorded ?Last Taken ?Type cyclobenzaprine 10 mg tablet 10 mg PO TID PRN Muscle Spasm #15 08/21/23 Unknown Rx TABLETS Allergy/AdvReac Type Severity Reaction Status Date / Time latex Allergy Hives Verified 12/30/23 05:25 adhesive tape AdvReac Rash Verified 12/30/23 05:25 Surgical History History of appendectomy Social History Smoking Status: Never smoker alcohol intake: never substance use type: does not use ROS ROS ED Constitutional Constitutional ED: Denies chills or fever(s) Eyes Eyes: Denies blurry vision or change in vision ENT ENT ED: Denies rhinorrhea or sore throat Cardiovascular Cardiovascular: Denies chest pain or palpitations Respiratory/Chest Respiratory/Chest: Denies cough or dyspnea Gastrointestinal Gastrointestinal: Reports nausea; Denies vomiting Genitourinary Genitourinary ED: Denies dysuria or hematuria Musculoskeletal Musculoskeletal: Reports neck pain; Denies back pain Integumentary Denies abscess or rash Neurologic Neurologic: Reports weakness; Denies headache(s) Allergic/Immunologic Allergic/Immunologic ED: Denies mouth swelling or urticaria EXAM Physical Exam Const Vital Signs: 12/30/23 05:22 12/30/23 06:25 12/30/23 07:31 Temperature 97.8 F Temperature Source Temporal Pulse Rate 68 Respiratory Rate 18 16 Respiratory Effort Normal Non-Labored Respiratory Pattern Normal Blood Pressure 140/83 H Blood Pressure Mean 102 Pulse Ox 98 99 Oxygen Delivery Method Room Air Room Air Positive well nourished and well developed General Appearance ED: well developed and NAD HEENT Reports moist mucous membranes Neck supple and no JVD Resp normal respiratory effort and clear to auscultation bilaterally Cardio regular rate and regular rhythm GI non-tender and non-distended Palpation: soft Extremity normal to inspection General Extremety ED: Negative for edema or tenderness General Extremity: Negative for edema Neuro oriented x3, CN's II-XII intact bilaterally and no sensory deficits noted Sensorium / Orientation: alert Psych mental status grossly normal MDM MDM MDM Narrative Medical decision making narrative: Differential diagnosis includes viral illness, dehydration, and electrolyte abnormality. CBC will be obtained to assess for leukocytosis and anemia. Basic metabolic profile will be obtained to assess for electrolyte abnormality and renal function. COVID-19, influenza, and RSV PCR will be obtained to assess for viral illness. Lab Data Lab results narrative: CBC was reviewed and was within normal limits. Basic metabolic profile was reviewed BUN was slightly elevated at 22. The remainder is essentially within normal limits. COVID-19 PCR was reviewed and was negative. Influenza PCR was reviewed and was negative for influenza A and influenza B. RSV PCR was reviewed and was negative. Labs: Laboratory Results - last 24 hr 12/30/23 06:34 WBC 5.8 RBC 5.08 Hgb 15.1 Hct 46.2 MCV 90.9 MCH 29.7 MCHC 32.7 RDW Std Deviation 41.1 RDW Coeff of Kaveh 12.4 Plt Count 203 MPV 11.6 Immature Gran % (Auto) 0.200 Neut % (Auto) 59.3 Lymph % (Auto) 30.3 Hart % (Auto) 6.9 Eos % (Auto) 2.6 Baso % (Auto) 0.7 Absolute Neuts (auto) 3.5 Absolute Lymphs (auto) 1.76 Nucleated RBC % 0 Sodium 140 Potassium 3.5 Chloride 102 Carbon Dioxide 33.0 H Anion Gap 5 BUN 22 H Creatinine 0.77 Estim Creat Clear Calc 103.72 Est GFR (MDRD) Af Amer 158 Est GFR (MDRD) Non-Af 130 BUN/Creatinine Ratio 28.6 H Glucose 99 Calcium 9.7 Treatment and Re-Evaluation :: Patient was given IV fluids and Zofran. Discharge Plan Triage Chief Complaint: General Illness ED Provider: Aleksandr Ronquillo Dx/Rx/DC Orders Clinical Impression: Viral illness, Cerebral palsy Instructions: ED Viral Syndrome (Adult) Prescriptions: No Action cyclobenzaprine [cyclobenzaprine] 10 mg tablet 10 mg PO TID PRN (Reason: Muscle Spasm) Qty: 15 0RF Stand Alone Forms: ED Work / School Excuse Primary Care Provider: Adam Paiz Referrals: Adam Paiz MD [Primary Care Provider] - 5-7 Days Print Language: Hong Konger Disposition Disposition: Home, Self Care
[2023-12-30] MEDS: Ondansetron 4 MG/2 ML Vial IV (06:43)
[2023-12-30] MEDS: 0.9% Normal Saline (1000mL) 1,000 ML 1000 ML IV (06:43)
[2023-12-30 06:45] LABS: Absolute Lymphocyte Count 1.76 X10^3/uL (0.83-4.51); Absolute Neutrophil Count 3.5 X10^3/uL (2.0-7.7); Basophil# 0.04 X10^3/uL; Basophil% 0.7 % (0-1); Eosinophil# 0.15 X10^3/uL; Eosinophils% 2.6 % (0-5); Hematocrit 46.2 % (40-54); Hemoglobin 15.1 g/dL (13.0-16.5); Lymphocyte # 1.76 X10^3/ul (0.83-4.51); Lymphocyte % 30.3 % (19-41); Mean Corp Hgb Conc 32.7 g/dL (32-36); Mean Corpuscular Hgb 29.7 pg (27.0-32.0); Mean Corpuscular Volume 90.9 fL (80-94); Mean Platelet Vol. 11.6 fl (6.2-12.0); Monocyte% 6.9 % (0-10); NRBC Flagged by Analyzer 0 % (0-5); Neutrophil # 3.45 X10^3/uL (2.7-7.7); Neutrophil % 59.3 % (47-70); Platelet Count 203 K/mm3 (150-450); RBC Distribution Width CV 12.4 % (11.6-14.6); RBC Distribution Width SD 41.1 fl (35.1-43.9); Red Blood Count 5.08 M/mm3 (4.6-6.2); White Blood Count 5.8 K/mm3 (4.4-11.0)
[2023-12-30 06:55] LABS: Anion Gap 5 (5-15); BUN 22 mg/dL (7-18); BUN/Creat Ratio 28.6 RATIO (10-20); Calcium,Total 9.7 mg/dL (8.5-10.1); Chloride 102 mmol/L (98-107); Creatinine, Serum 0.77 mg/dL (0.70-1.30); EST Glomerular Filtration Rate 130 mL/min (>60); Est Glom Filt Rate - Afr Amer 158 mL/min (>60); Estimated Creatinine Clearance 103.72 ml/min; Glucose 99 mg/dL (74-106); Potassium 3.5 mmol/L (3.5-5.1); Sodium Level 140 mmol/L (136-145)
[2023-12-30 07:31] VITALS: RESP 16; O2SAT 99
[2023-12-30 08:02] VITALS: BP 122/68; PULSE 95; RESP 16; TEMP 36.4; O2SAT 98
== END 2023-12-30 08:03 | disposition home or self-care (01) ==
PROVIDERS: Emergency Provider Emergency Medicine; PCP Family Medicine; Visit Provider Emergency Medicine
DX: B34.9 Viral infection, unspecified (principal); G80.9 Cerebral palsy, unspecified; R11.0 Nausea; Z11.52 Encounter for screening for COVID-19; R53.1 Weakness; R53.83 Other fatigue; M54.2 Cervicalgia
CPT/HCPCS: 80048; 85025; 87631; 96361; 96374; 99282; J2405

== ENCOUNTER 2024-01-18 22:50 | Emergency (ER) | payer MEDICARE, MEDICAID, SELFPAY ==
[2024-01-18 22:50] VITALS: BP 161/77; PULSE 98; RESP 16; TEMP 36.1; O2SAT 97; BMI 24.9
--- NOTE | 2024-01-18 23:15 | EX.ED.DYSGE1 ---
HPI History of Present Illness Chief Complaint: Lower Extremity Injury Informant: patient Narrative Narrative: Patient is a 23-year-old male with past medical history of cervical palsy. He reports he has got chronic joint pain and back pain from this. 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 He denies any direct trauma but states that he noticed that this evening as he was trying to go up and down the stairs he was having bilateral knee pain and weakness. Secondary to the increasing pain he presents for evaluation [facility] Medical History Migraines Herniated lumbar disc without myelopathy Cerebral palsy Home Medications ?Medication ?Instructions ?Recorded ?Last Taken ?Type cyclobenzaprine 10 mg tablet 10 mg PO TID PRN Muscle Spasm #15 08/21/23 Unknown Rx TABLETS oxycodone-acetaminophen 5 mg-325 1 tab PO Q6H PRN pain 3 days #12 01/18/24 Unknown Rx mg tablet (Percocet) tabs prednisone 20 mg tablet 40 mg (2 x 20 mg) PO DAILY 5 days 01/18/24 Unknown Rx #10 tabs Allergy/AdvReac Type Severity Reaction Status Date / Time latex Allergy Hives Verified 12/30/23 05:25 adhesive tape AdvReac Rash Verified 12/30/23 05:25 Surgical History History of appendectomy Social History Smoking Status: Never smoker alcohol intake: never substance use type: does not use ROS ROS ED Constitutional Constitutional ED: Denies chills or fever(s) ENT ENT ED: Denies sore throat Cardiovascular Cardiovascular: Denies chest pain Respiratory/Chest Respiratory/Chest: Denies cough or dyspnea Gastrointestinal Gastrointestinal: Denies abdominal pain, diarrhea, nausea or vomiting Genitourinary Genitourinary ED: Denies dysuria Musculoskeletal Musculoskeletal: Reports back pain and other Details: Positive knee pain Integumentary Denies Abrasions or rash Neurologic Neurologic: Denies headache(s) or paresthesias Hematologic/Lymphatic Hematologic/Lymphatic: Denies easy bleeding or easy bruising EXAM Physical Exam Const Vital Signs: 01/18/24 22:50 01/18/24 23:24 Temperature 97 F L 97 F L Temperature Source Temporal Pulse Rate 98 96 Respiratory Rate 16 16 Blood Pressure 161/77 H 155/70 H Blood Pressure Mean 105 98 Pulse Ox 97 96 Positive well nourished and well developed General Appearance ED: well developed; Negative for pallor HEENT HEENT Narrative: Normocephalic atraumatic Eyes PERRL and EOMs intact bilaterally Neck supple Resp normal respiratory effort and clear to auscultation bilaterally Cardio regular rate and regular rhythm Extremity Extremity Narrative: Bilateral lower extremities are neurovascularly intact. No bony deformity or joint effusion noted. No overlying erythema or warmth. Patellar tendon is intact and knee ligaments are stable bilaterally. There is crepitance noted with Holly's sign concerning for tendinitis. No asymmetric edema no pitting edema negative Homans' sign bilaterally. No saddle anesthesia. Negative straight leg raise. No clonus or Babinski. Patellar reflexes are plus 2 out of 4 bilaterally Neuro oriented x3, CN's II-XII intact bilaterally and no sensory deficits noted Sensorium / Orientation: alert Motor Exam: strength 5/5 throughout Psych mental status grossly normal Skin no rashes or lesions noted and no wounds General Skin Exam: Negative for jaundice or pallor MDM MDM MDM Narrative Medical decision making narrative: Patient arrived to ER hypertensive but otherwise with stable vitals. He has past medical history of chronic joint pain secondary to his cerebral palsy and reports he has been performing more activity recently. Differential diagnosis is for tendinitis versus knee sprain versus potential bursitis or infectious process such as septic joint. The patient does not have fever there is no erythema or warmth he has full active range of motion and therefore I do not believe he has a septic joint and without effusion present or erythema my concern for bursitis is low as well. As there was no report or signs of trauma and he does not have any laxity of his ligaments I do not feel there is need for an imaging study. Also as he does not have asymmetric swelling or calf pain concern for DVT is low and I do not feel there is a need for a venous duplex. History and exam is consistent with tendinitis secondary to overuse. I do believe he would benefit from a direct joint injection but that is not a procedure performed in the ER and he will be advised to follow-up with orthopedics to discuss this. In the meantime he will be placed on oral steroids and pain control and is otherwise safe for discharge. History & Record Review Discussion w/independent historian: Patient Discharge Plan Triage Chief Complaint: Lower Extremity Injury ED Provider: Jose Randall Dx/Rx/DC Orders Clinical Impression: Tendinitis of both knees, Cerebral palsy Instructions: ED Knee Sprain, ED Tendonitis Prescriptions: New prednisone 20 mg tablet 40 mg PO DAILY 5 Days Qty: 10 0RF oxycodone-acetaminophen [Percocet] 5-325 mg tablet 1 tab PO Q6H PRN (Reason: pain) 3 Days Qty: 12 0RF No Action cyclobenzaprine [cyclobenzaprine] 10 mg tablet 10 mg PO TID PRN (Reason: Muscle Spasm) Qty: 15 0RF Primary Care Provider: Adam Paiz Referrals: Adam Paiz MD [Primary Care Provider] - Jd Christie DO [Med Staff - Active Staff] - Activity Restrictions/Additional Instructions: Your history and exam is most consistent with inflammation/tendinitis of your knee which was most likely brought on by overuse secondary to your job. Follow-up with orthopedics to discuss potential joint injections to help control pain and use the prescribed medication as directed for symptom relief. Return to the ER should you have any further concerns Print Language: Estonian Disposition Disposition: Home, Self Care Discharge Date/Time: 01/18/24 23:31
[2024-01-18] MEDS: oxyCODONE 5 MG Tablet 10 MG PO (23:20)
[2024-01-18] MEDS: predniSONE 20 MG Tablet 60 MG PO (23:21)
[2024-01-18 23:24] VITALS: BP 155/70; PULSE 96; RESP 16; TEMP 36.1; O2SAT 96
== END 2024-01-18 23:31 | disposition home or self-care (01) ==
LOC: ED 23:23
PROVIDERS: Emergency Provider Emergency Medicine; PCP Family Medicine; Visit Provider Emergency Medicine
DX: M76.891 Other specified enthesopathies of right lower limb, excluding foot (principal); G80.9 Cerebral palsy, unspecified; M54.9 Dorsalgia, unspecified; M76.892 Other specified enthesopathies of left lower limb, excluding foot
CPT/HCPCS: 99283

== ENCOUNTER 2024-02-12 20:30 | Emergency (ER) | payer MEDICARE, MEDICAID, SELFPAY ==
[2024-02-12 20:31] VITALS: BP 125/77; PULSE 86; RESP 16; TEMP 36.6; O2SAT 97; BMI 20.7
--- NOTE | 2024-02-12 20:38 | RAD_ITS ---
INDICATION: PAIN EXAMINATION/TECHNIQUE: X-RAY - RIGHT XR Knee Complete 4 Views or More COMPARISON: None. FINDINGS: No acute fracture or malalignment. No significant degenerative changes are seen. No joint effusion. The soft tissues are unremarkable. RAD/Knee 4 or More Views IMPRESSION: No acute radiographic abnormalities. Electronically Signed: Garcia Ovalles MD at 21:03 EDT ,
--- NOTE | 2024-02-12 22:48 | ED.VIS.LOWEX ---
HPI History of Present Illness Chief Complaint: Lower Extremity Injury Detail of Chief Complaint: Increasing right knee pain Informant: patient Occured/Mechanism Comment: Atraumatic Onset/Context/Timing Onset: Weeks and Month(s) Context: Gradual Onset Timing: Continuous and Waxes and wanes Quality of Pain: Dull and Aching Location: Right knee Current Severity: Mild Maximum Severity: Severe Worsened by: Walking, weightbearing Relieved by: Nothing Associated Symptoms Associated Symptoms: Negative for Parasthesia, Weakness or Loss of Funtion Narrative Narrative: Patient is a 23-year-old male. 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 He also has history of right knee effusion. He denies history of gout or pseudogout. He states he has arthritis in the joint. He denies fever or chills. He states his knee feels tight. He denies paresthesia, anesthesia or motor weakness. He denies swelling of the knee, redness, or warmth. Prior similar symptoms: Yes Recent Illness/Hospitalization: No PFSH PFS Medical History Migraines Herniated lumbar disc without myelopathy Cerebral palsy Home Medications ?Medication ?Instructions ?Recorded ?Last Taken ?Type cyclobenzaprine 10 mg tablet 10 mg PO TID PRN Muscle Spasm #15 08/21/23 Unknown Rx TABLETS oxycodone-acetaminophen 5 mg-325 1 tab PO Q6H PRN pain 3 days #12 01/18/24 Unknown Rx mg tablet (Percocet) tabs prednisone 20 mg tablet 40 mg (2 x 20 mg) PO DAILY 5 days 01/18/24 Unknown Rx #10 tabs naproxen 500 mg tablet 500 mg PO BID #14 tabs 02/12/24 Unknown Rx Allergy/AdvReac Type Severity Reaction Status Date / Time latex Allergy Hives Verified 02/12/24 20:33 adhesive tape AdvReac Rash Verified 02/12/24 20:33 Surgical History History of appendectomy Social History Smoking Status: Never smoker alcohol intake: never substance use type: does not use ROS ROS ED Constitutional Constitutional ED: Denies chills, fever(s), subjective, sweats or weight loss Gastrointestinal Gastrointestinal: Denies abdominal pain, constipation, diarrhea, nausea or vomiting Musculoskeletal Musculoskeletal: Reports other Details: Atraumatic right knee pain ; Denies arthralgias, back pain, myalgias or neck pain Integumentary Denies rash Neurologic Neurologic: Denies paresthesias or weakness Hematologic/Lymphatic Hematologic/Lymphatic: Denies easy bleeding or easy bruising EXAM Physical Exam Const Vital Signs: 02/12/24 20:31 Temperature 97.9 F Temperature Source Temporal Pulse Rate 86 Respiratory Rate 16 Blood Pressure 125/77 H Blood Pressure Mean 93 Pulse Ox 97 Oxygen Delivery Method Room Air Positive well nourished and well developed General Appearance ED: well developed and NAD HEENT normocephalic and atraumatic Eyes PERRL Eyes Narrative: Extract muscles intact. Sclera is anicteric Neck full ROM and supple Resp normal respiratory effort Cardio regular rate and regular rhythm Extremity normal to inspection Extremity Narrative: Patient is able to extend through 165 degrees and flex to approximately 100 degrees. There is a well-healed scar from prior surgery. There is no obvious swelling. There is no significant difference in appearance other than the scar. Patella is not ballotable. There is no effusion. There is laxity of the lateral collateral ligament bilaterally. There is no joint line tenderness. There is no tenderness over the quadricep or patellar tendon. There is no fullness or tenderness in the popliteal fossa. Gordo's test was negative. Modified Holly's test was negative. Patient complained of pain with the Larios's test. DP and PT pulse are palpable and 2+. General Extremety ED: Yes weight-bearing difficulty; Negative for cyanosis or edema General Extremity: weight-bearing difficulty; Negative for cyanosis or edema Neuro oriented x3, CN's II-XII intact bilaterally, moves all extremities and no sensory deficits noted Sensorium / Orientation: alert Motor Exam: strength 5/5 throughout Plantar Reflex: Downgoing: bilateral Psych mental status grossly normal Skin no wounds Lesions: no lesions Rashes: no rashes MDM MDM MDM Narrative Medical decision making narrative: Differential diagnosis would include ligamentous injury, osteoarthritis, unlikely gout or pseudogout. X-rays were obtained per nurse protocol. Radiography Chest X-Ray - ED: Read by ED Physician (4 view x-ray of the knee was obtained. There is no acute process noted. There is no effusion, subluxation, dislocation or bony abnormality.) Diagnostic Testing: Clinical Impression(s) from Imaging Studies Knee X-Ray 02/12/24 20:38 IMPRESSION: No acute radiographic abnormalities. Electronically Signed: Garcia Ovalles MD at 21:03 EDT , Treatment and Re-Evaluation Narrative: Since patient drove himself to the emergency department he was treated with Naprosyn. He was discharged with Naprosyn since he has no contraindication to NSAIDs. Recommended following up with his doctor, Dr. Medina contact if no improvement. He states he has an appointment in 3 months. He apparently they could not get him in sooner. Discharge Plan Triage Chief Complaint: Lower Extremity Injury ED Provider: Ashvin Durant Dx/Rx/DC Orders Clinical Impression: Chronic pain of right knee, Cerebral palsy, Patella nicole Instructions: ED Chronic Pain, ED Knee Pain of Uncertain Cause Prescriptions: New naproxen 500 mg tablet 500 mg PO BID Qty: 14 0RF No Action cyclobenzaprine [cyclobenzaprine] 10 mg tablet 10 mg PO TID PRN (Reason: Muscle Spasm) Qty: 15 0RF prednisone 20 mg tablet 40 mg PO DAILY 5 Days Qty: 10 0RF oxycodone-acetaminophen [Percocet] 5-325 mg tablet 1 tab PO Q6H PRN (Reason: pain) 3 Days Qty: 12 0RF Primary Care Provider: Adam Paiz Referrals: Adam Paiz MD [Primary Care Provider] - 1 Week if not improving Print Language: Greenlandic Disposition Disposition: Home, Self Care
[2024-02-12] MEDS: Naproxen 500 MG Tablet PO (22:59)
[2024-02-12 23:00] VITALS: BP 122/70; PULSE 84; RESP 16; TEMP 36.6; O2SAT 99
== END 2024-02-12 23:01 | disposition home or self-care (01) ==
PROVIDERS: Emergency Provider Emergency Medicine; PCP Family Medicine; Visit Provider Emergency Medicine
DX: M25.561 Pain in right knee (principal); G80.9 Cerebral palsy, unspecified; G89.29 Other chronic pain; Z98.890 Other specified postprocedural states
CPT/HCPCS: 73564; 99282

== ENCOUNTER 2024-02-26 11:24 | Emergency (ER) | payer MEDICARE, MEDICAID, SELFPAY ==
[2024-02-26 11:24] VITALS: BP 149/83; PULSE 94; RESP 16; TEMP 36.5; O2SAT 100; BMI 19.7
--- NOTE | 2024-02-26 12:06 | RAD_ITS ---
STUDY: X-RAY - ABDOMEN/PELVIS REASON FOR EXAM: Male, 23 years old. Diffuse abd pain TECHNIQUE: Single AP view of the abdomen / pelvis. COMPARISON: None. FINDINGS: Normal visualized lung bases. There is an abundance of fecal material throughout the colon. The visualized liver, spleen and kidneys are grossly normal in size and morphology. Normal soft tissue structures. Prior left intramedullary adam fixation of the left femur with deformity of the left femoral head and neck. RAD/Abdomen Single View IMPRESSION: Large amount of fecal material in the colon. Electronically Signed: Randal Coates MD at 12:47 EDT ,
--- NOTE | 2024-02-26 12:07 | ED.VIS.GI ---
HPI HPI - GI History of Present Illness Chief Complaint: Abd Pain Informant: patient Narrative Narrative: Couple hours ago, patient started having paramedical abdominal pain, it became severe cramping aching, he was at work when this happened, he felt the need to have a bowel movement but was unable, and then states he was on the floor because the pain was so bad. Then he tried to urinate and had some issues urinating at the same time. When he did urinate here it was normal but he is concerned about this, nation. He states he is very concerned about cancer. He states cancer runs in the family, strongly. He states for the past 6 months off-and-on he has had a small ball shaped mass emanating from his anus off-and-on. He states he has had some minor bleeding from it on occasion. He states it is not there right now. He does have constipation from time to time where he does not go for 3 days or so because he cannot, then he eats something different and he is able to go, but usually goes every day or 2. Patient states abdominal pain is gone right now. [facility] Medical History Migraines Herniated lumbar disc without myelopathy Cerebral palsy Home Medications ?Medication ?Instructions ?Recorded ?Last Taken ?Type cyclobenzaprine 10 mg tablet 10 mg PO TID PRN Muscle Spasm #15 08/21/23 Unknown Rx TABLETS oxycodone-acetaminophen 5 mg-325 1 tab PO Q6H PRN pain 3 days #12 01/18/24 Unknown Rx mg tablet (Percocet) tabs prednisone 20 mg tablet 40 mg (2 x 20 mg) PO DAILY 5 days 01/18/24 Unknown Rx #10 tabs naproxen 500 mg tablet 500 mg PO BID #14 tabs 02/12/24 Unknown Rx hydrocortisone 2.5 % topical cream 1 applic [place] QHS #30 grams 02/26/24 Unknown Rx with perineal applicator (Proctosol HC) Allergy/AdvReac Type Severity Reaction Status Date / Time latex Allergy Hives Verified 02/26/24 11:25 adhesive tape AdvReac Rash Verified 02/26/24 11:25 Surgical History History of appendectomy Social History Smoking Status: Never smoker alcohol intake: never substance use type: does not use ROS ROS ED Constitutional Constitutional ED: Denies chills or fever(s) Eyes Eyes: Denies change in vision or diplopia ENT ENT ED: Denies rhinorrhea or sore throat Cardiovascular Cardiovascular: Denies chest pain or palpitations Respiratory/Chest Respiratory/Chest: Denies cough or dyspnea Gastrointestinal Gastrointestinal: Reports abdominal pain and constipation; Denies diarrhea, nausea or vomiting Genitourinary Genitourinary ED: Reports as per HPI and difficulty urinating; Denies dysuria, hematuria or urinary frequency Musculoskeletal Musculoskeletal: Reports other Details: Periumbilical abdominal pain radiated into his back, but it went away with the abdominal pain ; Denies neck pain Integumentary Denies abscess or rash Neurologic Neurologic: Denies headache(s), paresthesias or weakness Psychiatric Psychiatric: Denies anxiety or suicidal thoughts EXAM Physical Exam Const Vital Signs: 02/26/24 11:24 Temperature 97.7 F L Temperature Source Oral Pulse Rate 94 Respiratory Rate 16 Blood Pressure 149/83 H Blood Pressure Mean 105 Pulse Ox 100 Oxygen Delivery Method Room Air Positive well nourished and well developed General Appearance ED: well developed and NAD HEENT Reports moist mucous membranes normocephalic and atraumatic Eyes PERRL and EOMs intact bilaterally Neck full ROM and supple Resp normal respiratory effort and clear to auscultation bilaterally Cardio regular rate, regular rhythm and no murmurs GI non-tender and non-distended GI Narrative: Rectal exam unremarkable, nontender, no mass visible or palpable, no external or prolapsed hemorrhoids. Auscultation: normoactive bowel sounds Palpation: soft Back/Spine no CVA tenderness General Back: other FROM Extremity normal to inspection General Extremety ED: Negative for edema, pulses abnormal or tenderness General Extremity: Negative for edema or pulses abnormal Neuro oriented x3, CN's II-XII intact bilaterally and no sensory deficits noted Sensorium / Orientation: awake and alert Motor Exam: strength 5/5 throughout Skin no rashes or lesions noted and no wounds MDM MDM Lab Data Labs: Laboratory Results - last 24 hr 02/26/24 11:43 Urine Color Yellow Urine Clarity Clear Urine pH 6.0 Ur Specific [place] 1.030 Urine Protein 30 H Urine Glucose (UA) Normal Urine Ketones Negative Urine Occult Blood Negative Urine Nitrite Negative Urine Bilirubin Negative Urine Urobilinogen Normal Ur Leukocyte Esterase Negative Urine RBC 0 SEEN Urine WBC 0 SEEN Ur Squamous Epith Cells 0 SEEN Urine Bacteria 1+ Urine Mucus 0 SEEN Radiography Diagnostic Testing: Clinical Impression(s) from Imaging Studies KUB X-Ray 02/26/24 12:06 IMPRESSION: Large amount of fecal material in the colon. Electronically Signed: Randal Coates MD at 12:47 EDT , Discharge Plan Triage Chief Complaint: Abd Pain ED Provider: Kristian Lagos Dx/Rx/DC Orders Clinical Impression: Diffuse abdominal pain, Acute constipation, External hemorrhoid Instructions: ED Constipation (Adult), ED Hemorrhoids Prescriptions: New hydrocortisone [Proctosol HC] 2.5 % cream with perineal applicator 1 applic [place] QHS Qty: 30 0RF No Action cyclobenzaprine [cyclobenzaprine] 10 mg tablet 10 mg PO TID PRN (Reason: Muscle Spasm) Qty: 15 0RF prednisone 20 mg tablet 40 mg PO DAILY 5 Days Qty: 10 0RF oxycodone-acetaminophen [Percocet] 5-325 mg tablet 1 tab PO Q6H PRN (Reason: pain) 3 Days Qty: 12 0RF naproxen 500 mg tablet 500 mg PO BID Qty: 14 0RF Stand Alone Forms: ED Work / School Excuse Primary Care Provider: Adam Paiz Referrals: Adam Paiz MD [Primary Care Provider] - 1 Week if not improving Activity Restrictions/Additional Instructions: Use prescription cream nightly for 1-2 weeks. If you have chronic constipation consider getting a stool softener [id number] such as docusate sodium and take 100 mg capsule twice daily. Print Language: Romansh Disposition Disposition: Home, Self Care
[2024-02-26 12:26] LABS: Mucous, Urine 0 SEEN /hpf (<or=2+); Red Blood Cells-Urine 0 SEEN /hpf (0-5); Squamous Epithelial Cells - UA 0 SEEN /hpf (0-5); White Blood Cells 0 SEEN /hpf (0-5)
[2024-02-26 12:28] LABS: Color, Urine Yellow (Yellow); Glucose, Dipstick Normal (Normal); Ketone-Dipstick Negative (Negative); Leukocyte Esterase-Dipstick Negative /ul (Negative); Nitrite-Dipstick Negative (Negative); Occult Blood-Urine Negative /ul (Negative); Protein-Dipstick 30 mg/dl (Negative); Urine Bilirubin Dipstick Negative (Negative); Urine Clarity Clear (Clear); Urine Urobilinogen Normal (Normal)
[2024-02-26 12:56] LABS: Bacteria 1+ /hpf (None Seen)
== END 2024-02-26 14:14 | disposition home or self-care (01) ==
PROVIDERS: Emergency Provider Emergency Medicine; PCP Family Medicine; Visit Provider Emergency Medicine
DX: R10.84 Generalized abdominal pain (principal); G80.9 Cerebral palsy, unspecified; K59.00 Constipation, unspecified; K64.4 Residual hemorrhoidal skin tags
CPT/HCPCS: 74018; 81001; 99282

== ENCOUNTER 2024-08-30 13:06 | Emergency (ER) | payer MEDICARE, MEDICAID, SELFPAY ==
[2024-08-30 13:06] VITALS: BP 138/73; PULSE 82; RESP 14; TEMP 36.6; O2SAT 98
--- NOTE | 2024-08-30 13:17 | EKG12_ITS ---
Test Reason : cp Blood Pressure : */* mmHG Vent. Rate : 66 BPM Atrial Rate : 66 BPM P-R Int : 130 ms QRS Dur : 70 ms QT Int : 348 ms P-R-T Axes : * 11 27 degrees QTcB Int : 364 ms Poor data quality, interpretation may be adversely affected Normal sinus rhythm Normal ECG Confirmed by GARCIA MCMAHON, KLAUS ([id number]), content editor LUCINDA KAUR ([id number]) on 09/01/2024 6:41:45 AM Referred By: Celio Confirmed By: KLAUS ZELAYA MD
--- NOTE | 2024-08-30 13:18 | EDS_ITS ---
HPI History of Present Illness Chief Complaint: Chest Pain Narrative Narrative: 24-year-old male past medical history of cerebral palsy presents with generalized weakness and his heart feeling heavy as well as subjective fever and feeling cold. The symptoms began around 2 PM yesterday afternoon. He states he was sent home from work. He is not sure if he had food poisoning because he vomited twice yesterday without any blood in his emesis. His symptoms began approximately 23 hours ago. No exacerbating or alleviating factors but he states he feels weak and drained and that his heart feels heavy. [facility] Medical History Migraines Herniated lumbar disc without myelopathy Cerebral palsy Home Medications ?Medication ?Instructions ?Recorded ?Last Taken ?Type cyclobenzaprine 10 mg tablet 10 mg PO TID PRN Muscle S pasm #15 08/21/23 Unknown Rx TABLETS oxycodone-acetaminophen 5 mg-325 1 tab PO Q6H PRN pain 3 days #12 01/18/24 Unknown Rx mg tablet (Percocet) tabs prednisone 20 mg tablet 40 mg (2 x 20 mg) PO DAILY 5 days 01/18/24 Unknown Rx #10 tabs naproxen 500 mg tablet 500 mg PO BID #14 tabs 02/11 Unknown Rx hydrocortisone 2.5 % topical cream 1 applic ID QHS #30 grams 02/26/24 Unknown Rx with perineal applicator (Proctosol HC) Allergy/AdvReac Type Severity Reaction Status Date / Time latex Allergy Hives Verified 02/26/24 11:25 adhesive tape AdvReac Rash Verified 02/26/24 11:25 Surgical History History of appendectomy Social History Smoking Status: Never smoker alcohol intake: never substance use type: does not use ROS ROS ED ROS Narrative Review of systems positive for subjective fever alternating with feeling cold. No rigors. 2 episodes of nausea and vomiting yesterday. No recent cough or shortness of breath. States body and muscles feel tight and heart feels heavy. No dysuria or hematuria. Denies any exacerbating or alleviating factors. EXAM Physical Exam Narrative Exam Narrative: Afebrile. Vital signs noted. Nontoxic-appearing. Cardiovascular examination reveals a regular rate and rhythm. Lungs are clear to auscultation bilaterally. Abdomen is soft and nontender with normal active bowel sounds. No guarding or rebound. Neurological examination nonfocal, nonlateralizing. No noted pedal edema. Const Vital Signs: 08/30/24 13:06 08/30/24 13:06 Temperature 98 F Temperature Source Temporal Pulse Rate 82 Respiratory Rate 14 Respiratory Effort Normal Respiratory Pattern Normal Blood Pressure 138/73 H Blood Pressure Mean 94 Pulse Ox 98 Oxygen Delivery Method Room Air MDM MDM MDM Narrative Medical decision making narrative: Differential diagnosis includes but not limited to dehydration versus other electrolyte imbalance versus viral syndrome versus pneumonia. I have low suspicion for acute coronary syndrome as the patient states he is not having chest pain although that is what he was triaged as. He denies chest pain but states he feels weak, drained, and tired/fatigued. EKG was obtained and interpreted by myself independently as normal sinus rhythm at 66 bpm without ectopy or acute ST changes. No STEMI. I reviewed his laboratory work and he has slight neutropenia 4.3 and when compared to prior labs he has had this previously. I think this is more nonspecific. Hemoglobin normal at 16.2 with hematocrit 48.7, platelet count normal at 218. CMP is remarkable for a BUN of 20 with a normal creatinine of 0.97 which could be slight dehydration. Sodium is normal at 140 and potassium 3.7, normal. LFTs show alk phos low at 32 which I think is nonspecific. High- sensitivity troponin is less than 6. I feel this is greater than a 6-hour troponin as his symptoms began yesterday at around 2 PM. I do not feel he requires serial enzymes. Respiratory swab is negative for COVID, influenza A and B, and RSV. UA shows 0 WBCs. I do not feel antibiotics are indicated. Chest x-ray interpreted by myself independently in 1 view shows no evidence of pneumonia or pneumothorax. I reviewed the radiology report which confirms my independent interpretation. Patient was seen ambulating to the restroom without difficulty, and back to his cot. He does have a baseline limp. At this point in time, I feel he can be discharged to follow-up after his IV fluids are complete. He was given a note to be off work today. Return instructions to the emergency department were reviewed. Disposition is discharged home in stable condition. History & Record Review Discussion w/independent historian: Patient Additional record(s) reviewed:: Prior labs Lab Data Attestation: I reviewed the patient's lab results. Labs: Laboratory Results - last 24 hr 08/30/24 08/30/24 13:16 13:37 WBC 4.3 L RBC 5.30 Hgb 16.2 Hct 48.7 MCV 91.9 MCH 30.6 MCHC 33.3 RDW Std Deviation 42.7 RDW Coeff of Kaveh 12.6 Plt Count 218 MPV 11.8 Immature Gran % (Auto) 0.500 Neut % (Auto) 47.2 Lymph % (Auto) 43.2 H [place] % (Auto) 6.3 Eos % (Auto) 1.9 Baso % (Auto) 0.9 Absolute Neuts (auto) 2.0 Absolute Lymphs (auto) 1.86 Nucleated RBC % 0 Sodium 140 Potassium 3.7 Chloride 101 Carbon Dioxide 26.0 Anion Gap 13 BUN 20 H Creatinine 0.97 Estim Creat Clear Calc 95.16 Est GFR (MDRD) Non-Af 111 BUN/Creatinine Ratio 20.6 H Glucose 92 Calcium 9.7 Total Bilirubin 1.02 AST 25 ALT 18 Alkaline Phosphatase 32 L Troponin T High Sens < 6 Total Protein 7.9 Albumin 5.0 Globulin 6.6 H Albumin/Globulin Ratio 0.2 L Urine Color Yellow Urine Clarity Clear Urine pH 6.0 Ur Specific [place] 1.025 Urine Protein 30 H Urine Glucose (UA) Normal Urine Ketones Negative Urine Occult Blood Negative Urine Nitrite Negative Urine Bilirubin Negative Urine Urobilinogen Normal Ur Leukocyte Esterase Negative Urine RBC 0 SEEN Urine WBC 0 SEEN Ur Squamous Epith Cells 0-5 SEEN Urine Bacteria 2+ Urine Mucus 1+ Radiography Chest X-Ray - ED: 1 View, Read by ED Physician, Read by Radiologist and Normal Diagnostic Testing: Clinical Impression(s) from Imaging Studies Chest X-Ray 08/30/24 13:40 IMPRESSION: Negative Chest. Reading Location: [facility] Discharge Plan Triage Chief Complaint: Chest Pain Other Complaint: General Illness ED Provider: Xu Gordon Dx/Rx/DC Orders Clinical Impression: Generalized weakness, Chest heaviness Instructions: ED Chest Pain, Uncertain Cause, ED Weakness Uncertain Cause Prescriptions: No Action cyclobenzaprine [cyclobenzaprine] 10 mg tablet 10 mg PO TID PRN (Reason: Muscle Spasm) Qty: 15 0RF prednisone 20 mg tablet 40 mg PO DAILY 5 Days Qty: 10 0RF oxycodone-acetaminophen [Percocet] 5-325 mg tablet 1 tab PO Q6H PRN (Reason: pain) 3 Days Qty: 12 0RF hydrocortisone [Proctosol HC] 2.5 % cream with perineal applicator 1 applic ID QHS Qty: 30 0RF naproxen 500 mg tablet 500 mg PO BID Qty: 14 0RF Stand Alone Forms: ED Work / School Excuse Primary Care Provider: Adam Paiz Referrals: Adam Paiz MD [Primary Care Provider] - 3-5 Days if not improving Activity Restrictions/Additional Instructions: Drink plenty of oral fluids. Follow-up with your primary care provider. Return with new or worsening symptoms. Print Language: Cymraes Disposition Disposition: Home, Self Care
[2024-08-30 13:31] VITALS: BMI 20.1
[2024-08-30 13:31] LABS: Absolute Lymphocyte Count 1.86 X10^3/uL (0.83-4.51); Basophil# 0.04 X10^3/uL; Basophil% 0.9 % (0-1); Eosinophil# 0.08 X10^3/uL; Eosinophils% 1.9 % (0-5); Hematocrit 48.7 % (40-54); Hemoglobin 16.2 g/dL (13.0-16.5); Lymphocyte # 1.86 X10^3/ul (0.83-4.51); Lymphocyte % 43.2 % (19-41); Mean Corp Hgb Conc 33.3 g/dL (32-36); Mean Corpuscular Hgb 30.6 pg (27.0-32.0); Mean Corpuscular Volume 91.9 fL (80-94); Mean Platelet Vol. 11.8 fl (6.2-12.0); Monocyte# 0.27 X10^3/uL; Monocyte% 6.3 % (0-10); NRBC Flagged by Analyzer 0 % (0-5); Neutrophil # 2.04 X10^3/uL (2.7-7.7); Neutrophil % 47.2 % (47-70); Platelet Count 218 K/mm3 (150-450); RBC Distribution Width CV 12.6 % (11.6-14.6); RBC Distribution Width SD 42.7 fl (35.1-43.9); White Blood Count 4.3 K/mm3 (4.4-11.0)
[2024-08-30] MEDS: 0.9% Normal Saline (1000mL) 1,000 ML 1000 ML IV (13:32)
--- NOTE | 2024-08-30 13:40 | RAD_ITS ---
PROCEDURE: CHEST 1 VIEW (PORTABLE) 08/30/2024 REASON FOR EXAM: 24-year-old male, fatigue, chest discomfort and weakness. History of cerebral palsy. TECHNIQUE: Frontal view of the chest. COMPARISON: Chest radiographs 12/05/2022. FINDINGS: Hardware: None. Heart: The heart size is normal. Lungs: No focal consolidation, pleural effusion or pneumothorax. Bones: The bones are unremarkable. RAD/Chest 1 View (Portable) IMPRESSION: Negative Chest. Reading Location: [id number]
[2024-08-30 13:42] LABS: White Blood Cells 0 SEEN /hpf (0-5)
[2024-08-30 13:49] LABS: Color, Urine Yellow (Yellow); Glucose, Dipstick Normal (Normal); Ketone-Dipstick Negative (Negative); Leukocyte Esterase-Dipstick Negative /ul (Negative); Nitrite-Dipstick Negative (Negative); Occult Blood-Urine Negative /ul (Negative); Protein-Dipstick 30 mg/dl (Negative); Specific Gravity, Urine 1.025 (1.002-1.030); Urine Bilirubin Dipstick Negative (Negative); Urine Clarity Clear (Clear); Urine Urobilinogen Normal (Normal)
[2024-08-30 13:57] LABS: ALB/GLOB Ratio 0.2 RATIO (0.9-2.4); AST(SGOT) 25 U/L (<=37); Alanine Aminotransfer ALT/SGPT 18 U/L (<=46); Alkaline Phosphatase 32 U/L (40-129); Anion Gap 13 (5-15); BUN 20 mg/dL (4-19); BUN/Creat Ratio 20.6 RATIO (10-20); Calcium,Total 9.7 mg/dL (7.6-11.0); Chloride 101 mmol/L (98-108); Creatinine, Serum 0.97 mg/dL (0.70-1.20); EST Glomerular Filtration Rate 111 (>60); Estimated Creatinine Clearance 95.16 ml/min (50-250); Globulin 6.6 g/dL (2.2-4.2); Glucose 92 mg/dL (70-99); Potassium 3.7 mmol/L (3.3-5.1); Protein, Total 7.9 g/dL (5.9-8.4); Sodium Level 140 mmol/L (133-145); Total Bilirubin 1.02 mg/dL (0.00-1.30)
[2024-08-30 14:06] VITALS: BP 121/78; PULSE 64; RESP 18; TEMP 36.6; O2SAT 99
[2024-08-30 14:11] LABS: Bacteria 2+ /hpf (None Seen); Mucous, Urine 1+ /hpf (<or=2+); Red Blood Cells-Urine 0 SEEN /hpf (0-5); Squamous Epithelial Cells - UA 0-5 SEEN /hpf (0-5)
[2024-08-30 14:27] LABS: Troponin T High Sensitivity < 6 ng/L (<=22)
== END 2024-08-30 14:36 | disposition home or self-care (01) ==
PROVIDERS: Emergency Provider Emergency Medicine; PCP Family Medicine; Visit Provider Emergency Medicine
DX: R53.1 Weakness (principal); G80.9 Cerebral palsy, unspecified; R07.89 Other chest pain; Z11.52 Encounter for screening for COVID-19; Z79.899 Other long term (current) drug therapy
CPT/HCPCS: 71045; 80053; 81001; 84484; 85025; 87631; 93005; 96360; 99285; A4216

== ENCOUNTER 2024-11-05 02:51 | Emergency (ER) | payer MEDICARE, MEDICAID, SELFPAY ==
[2024-11-05 02:52] VITALS: BP 133/80; PULSE 65; RESP 18; TEMP 37.1; O2SAT 100; BMI 19.8
--- NOTE | 2024-11-05 02:54 | EX.ED.GENINJ ---
HPI History of Present Illness Chief Complaint: Other, Pain/Inj PFSH PFSH Medical History Migraines Herniated lumbar disc without myelopathy Cerebral palsy Home Medications ?Medication ?Instructions ?Recorded ?Last Taken ?Type acetaminophen 325 mg tablet 650 mg (2 x 325 mg) PO Q6H PRN 11/05/24 Unknown Rx (Tylenol) pain #90 tabs ibuprofen 400 mg tablet 400 mg PO Q6H PRN pain #90 tabs 11/05/24 Unknown Rx Allergy/AdvReac Type Severity Reaction Status Date / Time latex Allergy Hives Verified 11/05/24 02:52 adhesive tape AdvReac Rash Verified 11/05/24 02:52 Surgical History History of appendectomy Social History Smoking Status: Never smoker alcohol intake: never substance use type: does not use EXAM Physical Exam Const Vital Signs: 11/05/24 02:52 11/05/24 02:55 Temperature 98.8 F Temperature Source Oral Pulse Rate 65 Respiratory Rate 18 Respiratory Effort Normal Non-Labored Respiratory Pattern Normal Blood Pressure 133/80 H Blood Pressure Mean 97 Pulse Ox 100 Oxygen Delivery Method Room Air MDM MDM MDM Narrative Medical decision making narrative: HISTORY OF PRESENT ILLNESS: Chief complaint: Bilateral leg pain 24-year-old male history of cerebral palsy presents with bilateral nontraumatic leg pain. States has been moving out of the house recently has been exerting himself more as well as working 12 and 18-hour days consecutively. No new workout programs. No alcohol or drug use noted. He notes bilateral leg pain. Locates pain over his thighs. States that he has not tried any pain medicine but notes he has a pain management appointment in 2 weeks that he hopes to make. Denies loss of movement or sensation. Denies fever REVIEW OF SYSTEMS: Pertinent positives: Leg pain Pertinent negatives: Numbness, tingling, loss of sensation PHYSICAL EXAM: Nursing triage notes reviewed, Vital signs reviewed Constitutional: please see mdm Extremities: No edema, compartments are soft Neuro: Intact sensation L1-S1 dermatomal distributions. Intact 5/5 strength in hip flexion (T12-L3). Knee extension (L2-L4). Ankle dorsiflexion (L4-L5). Ankle plantar flexion (S1). Great toe extension (L5). 2+ patellar and Achilles DTRs. Skin: No rash or lesions noted MEDICAL DECISION MAKING: Chief Complaint: please see HPI External records reviewed: Reviewed prior ED visits, frequent ED utilizer Factors affecting care: CP Social determinants of health: Financially limited History obtained from others: none Consults: none MDM Narrative: The patient was initially hemodynamically stable, afebrile and nontoxic-appearing. Exam without focus of neurovascular compromise in bilateral lower extremities. I considered the following differential diagnosis: Musculoskeletal strain, rhabdomyolysis I offered a laboratory evaluation to definitively rhabdomyolysis or any sequela. Patient was alert and orient x 3 refused labs at this time. Given he had not tried any zxym-kct-doktzve pain medication I chose to start thereby give him a dose of Tylenol ibuprofen here and prescribing him Tylenol ibuprofen given some financial concerns. The patient and/or family, caregivers express understanding. The patient and/or family, caregivers agrees with the plan. Shared decision making: I will have a discussion with the patient and or visitors regarding risk/benefits of further testing or admission. They will be made aware of of the risk/benefits inherent in this decision they will be given the opportunity to voice understanding. Total critical care time today provided was at least 0 minutes. This excludes separately billable procedures. Critical care time (if documented) is secondary to the patient having high probability of clinically significant/life threatening deterioration in the patient's condition which required my urgent intervention. Impression: 1. Bilateral leg pain Dispo: Discharge home This note was generated with [employer] dictation software. It may contain incorrect words, spelling, and punctuation that were not noted in review of the chart prior to signing. Discharge Plan Triage Chief Complaint: Other, Pain/Inj ED Provider: Saeid Hadley Dx/Rx/DC Orders Clinical Impression: Myalgia Instructions: ED Myalgias Prescriptions: New acetaminophen [Tylenol] 325 mg tablet 650 mg PO Q6H PRN (Reason: pain) Qty: 90 3RF ibuprofen 400 mg tablet 400 mg PO Q6H PRN (Reason: pain) Qty: 90 3RF Stand Alone Forms: ED Work / School Excuse Primary Care Provider: Adam Paiz Referrals: Beverly Pavon MD [Med Staff - Active Staff] - Adam Paiz MD [Primary Care Provider] - Activity Restrictions/Additional Instructions: Thank you for trusting us with your care today! Please take Tylenol (2 pills, 650 mg), ibuprofen (2 pills, 400 mg) every 6 hours as needed for pain and fever control. Please return to the emergency department if your symptoms change or worsen. Please follow with your primary care physician for further outpatient evaluation and management. Print Language: Wolof Disposition Disposition: Home, Self Care
[2024-11-05] MEDS: Acetaminophen 325 MG Tablet 650 MG PO (03:35)
[2024-11-05] MEDS: Ibuprofen 200 MG Tablet 400 MG PO (03:35)
[2024-11-05 03:39] VITALS: BP 127/88; PULSE 76; RESP 16; TEMP 36.9; O2SAT 96
== END 2024-11-05 03:40 | disposition home or self-care (01) ==
PROVIDERS: Emergency Provider Emergency Medicine; PCP Family Medicine; Visit Provider Emergency Medicine
DX: M79.18 Myalgia, other site (principal); G80.9 Cerebral palsy, unspecified; M79.651 Pain in right thigh; M79.652 Pain in left thigh
CPT/HCPCS: 99282

== ENCOUNTER 2024-12-18 06:38 | Emergency (ER) | payer MEDICARE, MEDICAID, SELFPAY ==
[2024-12-18 06:41] VITALS: BP 142/81; PULSE 63; RESP 16; TEMP 36.6; O2SAT 100
--- NOTE | 2024-12-18 07:13 | ED.VIS.GI ---
HPI HPI - GI History of Present Illness Chief Complaint: Nausea/Vomiting Informant: patient Abdominal Pain/Flank Pain Onset: Today Context: Gradual Onset Timing: Continuous Quality: - (Discomfort) Location: Diffuse Current Severity: Mild Maximum Severity: Mild Worsened by: Nothing Relieved by: Nothing Nausea/Vomiting/Emesis GI Symptom: Positive for Nausea and Vomiting Onset: Today Quality: Positive for - (Light brown liquid) Episodes: 2 Diarrhea/Melena/Hematochezia GI Symptom: Negative for Diarrhea, Melena or Hematochezia Associated Symptoms Associated Symptoms: Negative for Dysuria, Frequency or Hematuria Narrative Narrative: Patient presents with nausea and vomiting that began this morning. Patient states he woke up feeling hungry. Patient states he started having some nausea and vomiting after that. Patient states he was vomiting up light brown liquid. Patient states he had 2 episodes of vomiting this morning. Patient denies any diarrhea, melena, or hematochezia. Patient denies any dysuria, frequency, or hematuria. Patient admits to some mild discomfort in his abdomen. Patient states it is diffuse. Patient states nothing makes it better and nothing makes it worse. [facility] Medical History Migraines Herniated lumbar disc without myelopathy Cerebral palsy Home Medications ?Medication ?Instructions ?Recorded ?Last Taken ?Type acetaminophen 325 mg tablet 650 mg (2 x 325 mg) PO Q6H PRN 11/05/24 Unknown Rx (Tylenol) pain #90 tabs ondansetron 4 mg disintegrating 4 mg PO Q8H PRN PRN Nausea #10 tabs 12/18/24 Unknown Rx tablet Allergy/AdvReac Type Severity Reaction Status Date / Time latex Allergy Hives Verified 12/18/24 06:43 adhesive tape AdvReac Rash Verified 12/18/24 06:43 Surgical History History of appendectomy Social History Smoking Status: Never smoker alcohol intake: never substance use type: does not use ROS ROS ED Constitutional Constitutional ED: Denies chills or fever(s) Eyes Eyes: Denies blurry vision or change in vision ENT ENT ED: Denies rhinorrhea or sore throat Cardiovascular Cardiovascular: Denies chest pain or palpitations Respiratory/Chest Respiratory/Chest: Denies cough or dyspnea Gastrointestinal Gastrointestinal: Reports abdominal pain, nausea and vomiting; Denies diarrhea or melena Genitourinary Genitourinary ED: Denies dysuria or hematuria Musculoskeletal Musculoskeletal: Denies back pain or neck pain Integumentary Denies abscess or rash Neurologic Neurologic: Denies headache(s) or weakness Allergic/Immunologic Allergic/Immunologic ED: Denies mouth swelling or urticaria EXAM Physical Exam Const Vital Signs: 12/18/24 06:41 Temperature 97.9 F Temperature Source Oral Pulse Rate 63 Respiratory Rate 16 Blood Pressure 142/81 H Blood Pressure Mean 101 Pulse Ox 100 Oxygen Delivery Method Room Air Positive well nourished and well developed General Appearance ED: well developed and NAD HEENT Reports moist mucous membranes Neck supple and no JVD Resp normal respiratory effort and clear to auscultation bilaterally Cardio regular rate and regular rhythm GI non-distended Palpation: soft and tender epigastric, LLQ, RLQ, LUQ, RUQ, periumbilical and suprapubic; Negative for guarding or rebound tenderness present Neuro CN's II-XII intact bilaterally, moves all extremities and no sensory deficits noted Sensorium / Orientation: alert Motor Exam: strength 5/5 throughout Psych mental status grossly normal MDM MDM MDM Narrative Medical decision making narrative: Differential diagnosis includes gastritis, peptic ulcer disease, duodenal ulcer, pancreatitis, cholecystitis, cholelithiasis, pyelonephritis, and urinary tract infection. CBC will be obtained to assess for leukocytosis and anemia. Comprehensive metabolic profile will be obtained to assess for hepatic function, renal function, and electrolyte abnormality. Lipase will be obtained to assess for pancreatitis. Urinalysis will be obtained to assess for urinary tract infection and hematuria. CT scan of the abdomen and pelvis will be obtained to assess for bowel obstruction, perforation, pancreatitis, cholecystitis, and cholelithiasis. History & Record Review Additional record(s) reviewed:: Prior outpatient record, Prior ED visit and Prior labs Lab Data Attestation: I reviewed the patient's lab results. Lab results narrative: CBC was reviewed and was within normal limits. Comprehensive metabolic profile was reviewed. BUN was slightly elevated at 24. The remainder is within normal limits. Lipase was reviewed and was normal at 29. Urinalysis was reviewed. There is no evidence of urinary tract infection or hematuria. Labs: Laboratory Results - last 24 hr 12/18/24 12/18/24 06:50 07:44 WBC 5.9 RBC 5.08 Hgb 15.4 Hct 46.6 MCV 91.7 MCH 30.3 MCHC 33.0 RDW Std Deviation 41.7 RDW Coeff of Kaveh 12.3 Plt Count 179 MPV 12.7 H Immature Gran % (Auto) 0.200 Neut % (Auto) 51.4 Lymph % (Auto) 40.2 [place] % (Auto) 5.4 Eos % (Auto) 2.0 Baso % (Auto) 0.8 Absolute Neuts (auto) 3.0 Absolute Lymphs (auto) 2.38 Nucleated RBC % 0 Sodium 142 Potassium 3.6 Chloride 101 Carbon Dioxide 27.7 Anion Gap 13 BUN 24 H Creatinine 0.83 Estim Creat Clear Calc 110.83 Est GFR (MDRD) Non-Af 124 BUN/Creatinine Ratio 28.6 H Glucose 104 H Calcium 9.5 Total Bilirubin 0.62 AST 19 ALT 14 Alkaline Phosphatase 73 Total Protein 7.4 Albumin 4.8 Globulin 2.7 Albumin/Globulin Ratio 1.8 Lipase 29 Urine Color Yellow Urine Clarity Clear Urine pH 6.0 Ur Specific [place] 1.025 Urine Protein 30 H Urine Glucose (UA) Normal Urine Ketones Negative Urine Occult Blood Negative Urine Nitrite Negative Urine Bilirubin Negative Urine Urobilinogen Normal Ur Leukocyte Esterase Negative Urine RBC 0 SEEN Urine WBC 0-5 SEEN Ur Squamous Epith Cells 0 SEEN Calcium Oxalate Crystal 1+ Urine Bacteria 0 SEEN Urine Mucus 1+ Radiography Diagnostic Testing: Clinical Impression(s) from Imaging Studies Abdomen/Pelvis CT 12/18/24 07:25 IMPRESSION: 1. Hepatomegaly with fatty infiltration. 2. Fecal retention in the colon consistent with constipation. 3. No obstructive uropathy. 4. Appendix is not clearly visualized. No significant fat stranding in the right lower abdominal quadrant to suggest acute inflammation. Reading Location: [facility] CT scan of the abdomen and pelvis was obtained. There is fecal retention in the colon consistent with constipation. There is no ureteral calculus or obstruction. There is fatty infiltration of the liver. There is no free air or free fluid. This was interpreted by the radiologist and was also independently reviewed by myself. Treatment and Re-Evaluation :: Patient was given IV fluids, morphine, and Zofran. Patient was advised of his findings. Patient was advised that this is most likely a viral illness. Patient was instructed to drink plenty of fluids. Patient was given a prescription for Zofran. Patient was instructed to follow-up with his primary care physician in 5 to 7 days. Patient was instructed to return if worse in any way. Patient understood and was agreeable with the plan. All questions were answered. Discharge Plan Triage Chief Complaint: Nausea/Vomiting ED Provider: Aleksandr Ronquillo Dx/Rx/DC Orders Clinical Impression: Nausea and vomiting, Cerebral palsy Instructions: ED Vomiting (Adult) Prescriptions: New ondansetron 4 mg tablet,disintegrating 4 mg PO Q8H PRN PRN (Reason: Nausea) Qty: 10 0RF No Action acetaminophen [Tylenol] 325 mg tablet 650 mg PO Q6H PRN (Reason: pain) Qty: 90 3RF Stand Alone Forms: ED Work / School Excuse Primary Care Provider: Adam Paiz Referrals: Adam Paiz MD [Primary Care Provider] - 5-7 Days Print Language: Venezuelan Disposition Disposition: Home, Self Care
--- NOTE | 2024-12-18 07:25 | CT_ITS ---
EXAM: CT Abdomen and Pelvis With Intravenous Contrast CLINICAL INDICATION: ABDOMINAL PAIN TECHNIQUE: Axial computed tomography images of the abdomen and pelvis with intravenous contrast. This CT exam was performed using one or more of the following dose reduction techniques: automated exposure control, adjustment of the mA and/or kV according to patient size, and/or use of iterative reconstruction technique. COMPARISON: No relevant prior studies available. FINDINGS: LUNG BASES: Unremarkable. No mass. No consolidation. ABDOMEN: LIVER: Hepatomegaly with fatty infiltration. GALLBLADDER AND BILE DUCTS: Unremarkable. No calcified stones. No ductal dilation. PANCREAS: Unremarkable. No mass. No ductal dilation. SPLEEN: Unremarkable. No splenomegaly. ADRENALS: Unremarkable. No mass. KIDNEYS AND URETERS: Unremarkable. No stones within either kidney. No hydronephrosis. STOMACH AND BOWEL: Fecal retention in the colon consistent with constipation. No obstruction. No mucosal thickening. PELVIS: APPENDIX: Appendix is not clearly visualized. No significant fat stranding in the right lower abdominal quadrant to suggest acute inflammation. BLADDER: Unremarkable. No mass. REPRODUCTIVE: Unremarkable as visualized. ABDOMEN and PELVIS: INTRAPERITONEAL SPACE: Unremarkable. No free air. No significant fluid collection. BONES/JOINTS: No acute fracture. No dislocation. SOFT TISSUES: Unremarkable. VASCULATURE: Unremarkable. No abdominal aortic aneurysm. LYMPH NODES: Unremarkable. No enlarged lymph nodes. CT/Abdomen/Pelvis W IV Cont ONLY IMPRESSION: 1. Hepatomegaly with fatty infiltration. 2. Fecal retention in the colon consistent with constipation. 3. No obstructive uropathy. 4. Appendix is not clearly visualized. No significant fat stranding in the rig ht lower abdominal quadrant to suggest acute inflammation. Reading Location: [facility]
--- OUTSIDE RECORDS SUMMARY | 2024-12-18 07:26 | XMS RPT_ITS | CCD ---
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 codes; unclassified (1 source) Past history of procedure; Translations: [S/P Botox injection] Episodic Residual codes; unclassified (1 source) Pain, unspecified; Translations: [Pain, unspecified] Onset: 11-17-2024 Episodic Residual codes; unclassified (1 source) Requires vaccination; Translations: [Need for vaccination] Spondylosis; intervertebral disc disorders; other back problems (4 sources) Degeneration of lumbar intervertebral disc; Translations: [Other intervertebral disc degeneration, lumbar region] 08-21-2023 Chronic Spondylosis; intervertebral disc disorders; other back problems (20 sources) Muscle spasm of back; Translations: [Low back pain] Onset: 12-12-2017 01-15-2020 Episodic Sprains and strains (13 sources) Strain of neck muscle; Translations: [Sprain of ankle] Onset: 05-10-2023 01-31-2023 Episodic Suicide and intentional self-inflicted injury (16 sources) Suicidal thoughts; Translations: [Suicidal ideations] 12-14-2017 Episodic Superficial injury; contusion (20 sources) Contusion of shoulder region; Translations: [Contusion of right shoulder, initial encounter] 04-11-2022 Episodic Unclassified (1 source) Unknown / UNK(Unknown) Onset: 12-12-2017 Unclassified (1 source) Encounter for removal of sutures Onset: 06-29-2018 Unclassified (1 source) Laceration without foreign body of right hand, initial encounter Onset: 06-24-2018 Viral infection (20 sources) Viral disease; Translations: [Acute viral disease] 11-03-2021 Episodic Past or Other Problems Problem Classification Problem Date Documented Da te Episodic/Chronic Abdominal pain (20 sources) Generalized abdominal pain; Translations: [Generalized abdominal pain] Onset: 11-13-2022 Episodic Other connective tissue disease (11 sources) Contracture of tendo achilles; Translations: [Contracture of Achilles tendon, unspecified laterality] Onset: 2019 2019 Episodic Other connective tissue disease (19 sources) Contracture of right Achilles tendon; Translations: [Short Achilles tendon (acquired), right ankle] Onset: 01-15-2018 01-30-2018 Episodic Other connective tissue disease (19 sources) Contracture of left Achilles tendon; Translations: [Short Achilles tendon (acquired), left ankle] Onset: 01-15-2018 01-30-2018 Episodic Other connective tissue disease (19 sources) Finding of thigh; Translations: [Other specified [...] bone, other site] Onset: 05-12-2015 05-12-2015 Episodic Other non-traumatic joint disorders (3 sources) Pain in right shoulder; Translations: [Pain in joint, shoulder region] Onset: 05-10-2023 05-10-2023 Episodic Other non-traumatic joint disorders (1 source) Pain in right knee; Translations: [Pain in right knee] Onset: 03-05-2024 Episodic Residual codes; unclassified (1 source) Illness, unspecified; Translations: [Illness, unspecified] Onset: 01-17-2024 Episodic Unclassified (10 sources) History of orthopedic surgery; Translations: [S/P Achilles tendon repair] Onset: 2019 Resolved: 2019 2019 Results Test Name Value Interpretation Reference Range Facil ity Urgent Care Visit Reporton 0 11-17-2024 Urgent Care Visit Report [facility] [address], [address] [place] [address] OFFICE VISIT Date of Service: 11/17/24 MR#: [id number] Acct: [id number] Name: JEZ HAIDER Rep #: [id number] : 2000 Provider: MINGO Lewis Age/Sex: 24/M Location: [facility] Status: Signed Intake Vital Signs 11/05/24 02:52 11/17/24 07:26 Height 5 ft 7 in 5 ft 7 in Weight: 122 lb 8 oz BMI 19.1 BP 102/62 Position Sitting Pulse 62 Temp 98.3 F Temp Source Oral Pulse Oximetry (%) 98 Oxygen Delivery Method room air Intake Visit Reasons: body aches, dizziness Accompanied by: Self Allergies latex Allergy (Verified 11/17/24 06:35) Hives adhesive tape Adverse Reaction (Verified 11/17/24 06:35) Rash Medications ???Medication ???Instructions ???Recorded ???Confirmed ???Type acetaminophen 325 mg tablet 650 mg (2 x 325 mg) PO Q6H PRN 11/17/24 Rx (Tylenol) pain #90 tabs ibuprofen 400 mg tablet 400 mg PO Q6H PRN pain #90 tabs 11/17/24 Rx Nurse's Note: Patient has BA,dizziness, cloudy head, little pain and his brain hurts he states. Patient said this has been going on for 48 hours. [facility] Medical History Migraines Herniated lumbar disc without myelopathy Cerebral palsy Surgical History History of appendectomy Social History Smoking Status: Never smoker alcohol intake: never substance use type: does not use HPI HPI Details: JEZ HAIDER, is a 24 M who presents to the office today for initial evaluation in the [facility] for approximately 48-hour history of persistent GAY, myalgias, fatigue, dizziness. Patient notes no complaints of fever, chills, sweats, nausea/vomiting, or chest pain or shortness of breath or dyspnea on exertion. Several close contacts recently dx???d w/ similar URI complaints. Patient notes working excessive hours with 2 full-time jobs and feels worn down as he describes. No [id number] medications taken to assist. No other associated symptoms and no other alleviating/aggrava ting factors. ROS Const Constitutional: No other (As above) Exam Const General: cooperative, healthy appearing and no acute distress Orientation: alert, awake and oriented x3 HENMT Head: normal to inspection Ears: hearing grossly normal bilaterally, external ears normal, TM's normal bilaterally and EAC's normal Nose: external nose normal, nares normal, septum normal and trace clear nasal discharge Face and sinus: normal facial exam, sinuses nontender and face symmetric Mouth: oral mucosae normal, lip normal, tongue normal and oropharynx normal Throat: posterior oropharynx normal, tonsils normal, uvula midline and no postnasal drainage Eyes General: appearance normal, both eyes and all related structures Neck Neck: normal visual inspection, full ROM, no lymphadenopathy, no meningeal signs and supple Neck mass: No Thyroid: thyroid normal Lymphatic: no lymphadenopathy noted Chest Chest palpation inspection: normal inspection of the chest Resp Effort Inspection: normal respiratory effort, able to speak in complete sentences and no unsolicited cough during today's exam Auscultation: Bilateral: Clear to Auscultation Cardio Palpation: normal PMI Rate: Regular Rhythm: regular rhythm Heart Sounds: S1 normal, S2 normal, no gallops, no murmurs and no rubs Pulses: radial pulses present Skin General: no rashes or lesions noted Neuro General: patient alert, patient awake and patient oriented x3 Cognition: normal cognition Speech: speech normal Psych Appearance: grossly normal Mental Status: mental status grossly normal Mood: congruent mood Affect: normal affect Speech and Movement: speech and movement normal Attitude: cooperative Diagnoses Contact with or exposure to other viral diseases Z20.828 URI (upper respiratory infection) J06.9 Assessment and Plan Assessment and Plan (1) Contact with or exposure to other viral diseases: Status: Acute (2) URI (upper respiratory infection): Status: Acute Plan: See POC results. Work excuse provided at patient request. Supportive measures as instructed today. Follow-up with PCP in 5 to 7 days should symptoms not improve, ED sooner should symptoms worsen or any other concerns develop. Pt states acknowledging understanding all the above. Results POC JAI CoV-2 PCR POC JAI CoV-2 PCR Not Detected Last Edit by Neris Bhatia MA on 11/17/24 06:54 POC FLU A B Office Flu A B Negative FLU A B Last Edit by Neris Bhatia MA on 11/17/24 06:54 Coding Level of Care Code Off vis,est,level 2 Assessment and Plan Assessment and Plan Orders: Ord (more content not included)... Normal [facility] Emergency Department Summary on 11-05-2024 Emergency Department Summary [facility] Department [address] [place] [id number] Emergency Department Summary 11/05/24 MR#: [id number] Acct: [id number] Name: JEZ HAIDER Rep #: [id number] : 2000 24 From: Saeid Hadley DO PCP: Dr. Adam Paiz MD Status:REG ER Location: ED HPI History of Present Illness Chief Complaint: Other, Pain/Inj PFSH PFS Medical History Migraines Herniated lumbar disc without myelopathy Cerebral palsy Home Medications ???Medication ???Instructions ???Recorded ???Last Taken ???Type acetaminophen 325 mg tablet 650 mg (2 x 325 mg) PO Q6H PRN Unknown Rx (Tylenol) pain #90 tabs ibuprofen 400 mg tablet 400 mg PO Q6H PRN pain #90 tabs Unknown Rx Allergy/AdvReac Type Severity Reaction Status Date / Time latex Allergy Hives Verified 11/05/24 02:52 adhesive tape AdvReac Rash Verified 11/05/24 02:52 Surgical History History of appendectomy Social History Smoking Status: Never smoker alcohol intake: never substance use type: does not use EXAM Physical Exam Const Vital Signs: 11/05/24 02:52 11/05/24 02:55 Temperature 98.8 F Temperature Source Oral Pulse Rate 65 Respiratory Rate 18 Respiratory Effort Normal Non-Labored Respiratory Pattern Normal Blood Pressure 133/80 H Blood Pressure Mean 97 Pulse Ox 100 Oxygen Delivery Method Room Air MDM MDM MDM Narrative Medical decision making narrative: HISTORY OF PRESENT ILLNESS: Chief complaint: Bilateral leg pain 24-year-old male history of cerebral palsy presents with bilateral nontraumatic leg pain. States has been moving out of the house recently has been exerting himself more as well as working 12 and 18-hour days consecutively. No new workout programs. No alcohol or drug use noted. He notes bilateral leg pain. Locates pain over his thighs. States that he has not tried any pain medicine but notes he has a pain management appointment in 2 weeks that he hopes to make. Denies loss of movement or sensation. Denies fever REVIEW OF SYSTEMS: Pertinent positives: Leg pain Pertinent negatives: Numbness, tingling, loss of sensation PHYSICAL EXAM: Nursing triage notes reviewed, Vital signs reviewed Constitutional: please see mdm Extremities: No edema, compartments are soft Neuro: Intact sensation L1-S1 dermatomal distributions. Intact 5/5 strength in hip flexion (T12- L3). Knee extension (L2-L4). Ankle dorsiflexion (L4-L5). Ankle plantar flexion (S1). Great toe extension (L5). 2+ patellar and Achilles DTRs. Skin: No rash or lesions noted MEDICAL DECISION MAKING: Chief Complaint: please see HPI External records reviewed: Reviewed prior ED visits, frequent ED utilizer Factors affecting care: CP Social determinants of health: Financially limited History obtained from others: none Consults: none [facility] Narrative: The patient was initially hemodynamically stable, afebrile and nontoxic-appearing. Exam without focus of neurovascular compromise in bilateral lower extremities. I considered the following differential diagnosis: Musculoskeletal strain, rhabdomyolysis I offered a laboratory evaluation to definitively rhabdomyolysis or any sequela. Patient was alert and orient x 3 refused labs at this time. Given he had not tried any ckri-vol-[id number] pain medication I chose to start thereby give him a dose of Tylenol ibuprofen here and prescribing him Tylenol ibuprofen given some financial concerns. The patient and/or family, caregivers express understanding. The patient and/or family, caregivers agrees with the plan. Shared decision making: I will have a discussion with the patient and or visitors regarding risk/benefits of further testing or admission. They will be made aware of of the risk/benefits inherent in this decision they will be given the opportunity to voice understanding. Total critical care time today provided was at least 0 minutes. This excludes separately billable procedures. Critical care time (if documented) is secondary to the patient having high probability of clinically significant/life threatening deterioration in the patient's condition which required my urgent intervention. Impression: 1. Bilateral leg pain Dispo: Discharge home This note was generated with [employer] dictation software. It may contain incorrect words, spelling, and punctuation that were not noted in review of the chart prior to signing. Discharge Plan Triage Chief Complaint: Other, Pain/Inj ED Provider: Saeid Hadley Dx/Rx/DC Orders Clinical Impression: Myalgia Instructions: ED Myalgias Pr (more content not included)... [facility] ---- JEZ HAIDER ([id number]) 2000 M Date Time Provider Department 09/20/24 12:15 PM ADAM CHANDLER [facility] During your visit today, we recorded the following information about you: Temperature Pulse Respiration Blood pressure 97.2 degrees 65/minute 16/minute 123/76 Weight 56.6 kg Adam Chandler APRN.MYLA 09/20/2024 1:39 PM Signed Subjective HPI Nontoxic-appearing 24-year-old male presents urgent care chief complaint cough sore throat nasal congestion fatigue. Duration of symptoms 2 days. Associated symptoms listed above. OTC medications none. Most prominent symptom today sinus pressure sore throat. No fevers. Denies any difficulty swallowing his secretions decreased range of motion neck or trismus. Past medical history prescription medications allergies reviewed .Patient presents with: URI: X2 days PAST MEDICAL HISTORY Diagnosis Date - Cerebral palsy (HCC) PAST SURGICAL HISTORY Procedure Laterality Date - LEG SURGERY HX x4 - S TENDON - ACHILLES Bilateral 01/30/2018 [facility] Latex MEDICATIONS - hydrocortisone (ANUSOL-HC) 2.5 % rectal cream (Patient not taking: Reported on 08/04/2024) - ondansetron orally disintegrating (ZOFRAN ODT) 4 mg disintegrating tablet Take 1 tablet by mouth every 6 hours as needed. (Patient not taking: Reported on 08/04/2024) FAMILY HISTORY Problem Relation Age of Onset - None Father - None Mother - Cancer Maternal Grandmother throat - Alzheimer's Disease Maternal Grandmother - None Sister - None Brother - None Brother - None Brother - None Brother - None Sister - None Sister - None Sister Social History Tobacco Use - Smoking status: Never - Smokeless tobacco: Never Substance Use Topics - Alcohol use: No - Drug use: No BP 123/76 Pulse 65 Temp 36.2 ?C (97.2 ?F) (Left Tympanic) Resp 16 Wt 56.6 kg (124 lb 12.5 oz) SpO2 99% BMI 19.54 kg/m? Review of Systems Constitutional: Negative for chills, fever and malaise/fatigue. HENT: Positive for congestion and sore throat. Negative for ear discharge, ear pain and sinus pain. Eyes: Negative for blurred vision, pain, discharge and redness. Respiratory: Positive for cough. Negative for hemoptysis, sputum production, shortness of breath, wheezing and stridor. Cardiovascular: Negative for chest pain. Gastrointestinal: Negative for abdominal pain, diarrhea, nausea and vomiting. Musculoskeletal: Positive for myalgias. Skin: Negative for itching and rash. Neurological: Positive for headaches. Negative for dizziness. Objective Physical Exam Constitutional: General: He is not in acute distress. Appearance: He is not diaphoretic. HENT: Head: Normocephalic. Jaw: No trismus, tenderness, swelling or pain on movement. Nose: Congestion present. Mouth/Throat: Mouth: Mucous membranes are moist. Pharynx: Oropharynx is clear. Uvula midline. Posterior oropharyngeal erythema present. No pharyngeal swelling, oropharyngeal exudate or uvula swelling. Tonsils: No tonsillar exudate or tonsillar abscesses. Eyes: Conjunctiva/sclera: Conjunctivae normal. Pupils: Pupils are equal, round, and reactive to light. Cardiovascular: Rate and Rhythm: Normal rate and regular rhythm. Heart sounds: Normal heart sounds. Pulmonary: Effort: Pulmonary effort is normal. No tachypnea, accessory muscle usage or respiratory distress. Breath sounds: Normal breath sounds. No stridor. No wheezing, rhonchi or rales. Abdominal: General: There is no distension. Palpations: Abdomen is soft. Tenderness: There is no abdominal tenderness. There is no guarding or rebound. Musculoskeletal: Cervical back: Normal range of motion and neck supple. No edema, erythema, rigidity or tenderness. No pain with movement. Normal range of motion. Lymphadenopathy: Cervical: No cervical adenopathy. Skin: General: Skin is warm and dry. Neurological: Mental Status: He is alert and oriented to person, place, and time. ASSESSMENT/PLAN: 1. Viral illness - ICD9: 079.99, ICD10: B34.9 - Discussed viral etiology and rationale for treatment. - Rapid strep negative in office today - Symptomatic treatment with prn analgesia - Supportive care with fluids and rest - COVID AND INFLUENZA A/B AND RSV PCR, ROUTINE Strep test negative. Diagnosed with viral illness. Treat supportively. Patient was educated on supportive therapies. Patient will follow up with primary care provider as needed. Patient was instructed to immediately proceed to emergency room for any new, worsening, or symptoms lasting longer than anticipated. The patient's clinical presentation is otherwise unremarkable at this time. Based on exam and clinical finding, the patient is stable for discharge. Plan of care was discussed with patient. Patient verbalizes understanding and agrees to plan of care (more content not included)... Normal [facility] STREP A MOLECULAR (POC)on Procedural Control Valid [facility] Strep A (POCT) Negative Negative [facility] 12 Lead EKGon 08-30-2024 12 Lead EKG [facility] [address] [place] [address] 12 Lead EKG 08/30/24 1310 MR#: [id number] Acct: [id number] Name: JEZ HAIDER Rep #: [id number] : 2000 24 From: Duncan Tamayo MD Attending Dr: Status: DEP ER Ordering Dr: Xu Gordon MD Date: 08/30/24 Location: ED Sex: M C Admitted: Test Reason : cp Blood Pressure : */* mmHG Vent. Rate : 66 BPM Atrial Rate : 66 BPM P-R Int : 130 ms QRS Dur : 70 ms QT Int : 348 ms P-R-T Axes : * 11 27 degrees QTcB Int : 364 ms Poor data quality, interpretation may be adversely affected Normal sinus rhythm Normal ECG Confirmed by GARCIA MCMAHON, DUNCAN ([id number]), editor managing newspaper BONITA KAUR ([id number]) on 09/01/2024 6:41:45 AM Referred By: Ar Confirmed By: DUNCAN TAMAYO MD 09/01/24 0641 Date Duncan Tamayo MD CC: Dr. Xu Gordon MD; Dr. Adam Paiz MD Signed Normal [facility] Absolute lymphocyte countOrd ered By: Xu Gordon on 08-30-2024 Lymphocytes Auto (Unsp spec) [#/Vol] 1.86 10*3/uL 0.83-4.51 [facility] Absolute neutrophil countOrd ered By: Xu Gordon on 08-30-2024 Neutrophils (Bld) [#/Vol] 2.0 10*3/uL 2.0-7.7 [facility] Anion gap in Serum or Plasma Ordered By: Xu Gordon on 08-30-2024 Anion gap [Moles/Vol] 13 mmol/L 5-15 [facility] Automated lymphocyte count a s percentage of total leukocytesOrdered By: Xu Gordon on 08-30-2024 Lymphocytes/100 WBC Auto (Unsp spec) 43.2 % High 19-41 [facility] BUN/creatinine ratioOrdered By: Xu Gordon on 08-30-2024 Urea nitrogen/Creatinine [Mass ratio] 20.6 mg/mg High 10-20 [facility] Basophil percentageOrdered B y: Xu Gordon on 08-30-2024 Basophils/100 WBC (Bld) 0.9 % 0-1 [facility] Bilirubin Test strip Ql (U)O rdered By: Xu Gordon on 08-30-2024 Bilirubin Ql (U) Negative Negative [facility] Bilirubin, totalOrdered By: Xu Gordon on 08-30-2024 Bilirubin [Mass/Vol] 1.02 mg/dL 0.00-1.30 [facility] CBC W/Diff, Automatedon 08-10 Absolute Lymph 1.86 X10 3/uL Normal 0.83-4.51 [facility] Comment on above: Performed By: #### L 100.0100, [id number] #### [facility] [address] [place], [address] Absolute Neut 2.0 X10 3/uL Normal 2.0-7.7 [facility] Comment on above: Performed By: #### L 100.0100, [id number] #### [facility] [address] [place], [address] Basophils/100 WBC (Bld) 0.9 % Normal 0-1 [facility] Comment on above: Performed By: #### L 100.0100, [id number] #### [facility] [address] [place], [address] Eosinophils/100 WBC (Bld) 1.9 % Normal 0-5 [facility] Comment on above: Performed By: #### L 100.0100, [id number] #### [facility] [address] [place], [address] Erythrocyte distribution width (RBC) [Ratio] 12.6 % Normal 11.6-14.6 [facility] Comment on above: Performed By: #### L 100.0100, [id number] #### [facility] [address] [place], [address] Hematocrit (Bld) [Volume fraction] 48.7 % Normal 40-54 [facility] Comment on above: Performed By: #### L 100.0100, [id number] #### [facility] [address] [place], [address] Hemoglobin (Bld) [Mass/Vol] 16.2 g/dL Normal 13.0-16.5 [facility] Comment on above: Performed By: #### L 100.0100, [id number] #### [facility] [address] [place], [address] IG% 0.500 Normal 0.0-0.9 [facility] Comment on above: Result Comment: IG% - Immature Granulocytes (promyelocytes, myelocytes and metamyelocytes) > 1% indicates that a LEFT SHIFT is Present. Performed By: #### L 100.0100, L500.4050 #### [facility] [address] [place], [address] Lymphocytes/100 WBC (Bld) 43.2 % High 19-41 [facility] Comment on above: Performed By: #### L 100.0100, [id number] #### [facility] [address] [place], [address] MCH (RBC) [Entitic mass] 30.6 pg Normal 27.0-32.0 [facility] Comment on above: Performed By: #### L 100.0100, [id number] #### [facility] [address] [place], [address] MCHC (RBC) [Mass/Vol] 33.3 g/dL Normal 32-36 [facility] Comment on above: Performed By: #### L 100.0100, [id number] #### [facility] [address] [place], [address] MCV (RBC) [Entitic vol] 91.9 fL Normal 80-94 [facility] Comment on above: Performed By: #### L 100.0100, [id number] #### [facility] [address] [place], [address] Monocytes/100 WBC (Bld) 6.3 % Normal 0-10 [facility] Comment on above: Performed By: #### L 100.0100, [id number] #### [facility] [address] [place], [address] Neutrophils/100 WBC (Bld) 47.2 % Normal 47-70 [facility] Comment on above: Performed By: #### L 100.0100, [id number] #### [facility] [address] [place], [address] Nucleated RBC (Bld) [#/Vol] 0 10*3/uL Normal 0-5 [facility] Comment on above: Performed By: #### L 100.0100, [id number] #### [facility] [address] [place], [address] Platelet mean volume (Bld) [Entitic vol] 11.8 fL Normal 6.2-12.0 [facility] Comment on above: Performed By: #### L 100.0100, [id number] #### [facility] [address] [place], [address] Platelets (Bld) [#/Vol] 218 10*3/uL Normal 150-450 [facility] Comment on above: Performed By: #### L 100.0100, L500.4050 #### [facility] [address] [place], [address] RBC (Bld) [#/Vol] 5.30 10*6/uL Normal 4.6-6.2 [facility] Comment on above: Performed By: #### L 100.0100, L500.4050 #### [facility] [address] [place], [address] RDW SD 42.7 fl Normal 35.1-43.9 [facility] Comment on above: Performed By: #### L 100.0100, L500.4050 #### [facility] [address] [place], [address] WBC (Bld) [#/Vol] 4.3 10*3/uL Low 4.4-11.0 [facility] Comment on above: Performed By: #### L 100.0100, L500.4050 #### [facility] [address] [place], [address] Carbon dioxide, total [Moles /volume] in Central venous bloodOrdered By: Xu Gordon on 08-30-2024 CO2 [Moles/Vol] 26.0 mmol/L 21.0-32.0 [facility] Chest 1 View (Portable)on Chest 1 View (Portable) [facility] Imaging Services [address] [place] [address] Chest 1 View (Portable) MR#: [id number] Acct: [id number] Name: JEZ HAIDER Rep #: [id number] : 2000 M 24 From: Karoline Quijano nd, MD PCP: Dr. Adam Paiz MD Status: REG ER Study: Chest 1 View (Portable) Date of Exam: 08/30/24 Exam# [id number] Ordering Dr: Xu Gordon MD PROCEDURE: CHEST 1 VIEW (PORTABLE) 08/30/2024 REASON FOR EXAM: 24-year-old male, fatigue, chest discomfort and weakness. History of cerebral palsy. TECHNIQUE: Frontal view of the chest. COMPARISON: Chest radiographs 12/05/2022. FINDINGS: Hardware: None. Heart: The heart size is normal. Lungs: No focal consolidation, pleural effusion or pneumothorax. Bones: The bones are unremarkable. RAD/Chest 1 View (Portable) IMPRESSION: Negative Chest. Reading Location: [facility] CC: Dr. Xu Gordon MD; Dr. Adam Paiz MD Floor Hand: Signed Normal [facility] Chloride assayOrdered By: Montez Gordon on 08-30-2024 Chloride [Moles/Vol] 101 mmol/L 98-108 [facility] Comprehensive Metabolic Prof ilon 08-30-2024 Albumin [Mass/Vol] 5.0 g/dL Normal 3.5-5.0 [facility] Comment on above: Performed By: #### L 100.0100, L500.4050 #### [facility] [address] [facility] [place], [address] Emergency Department Summary on 08-30-2024 Emergency Department Summary [facility] Medical Records Department [address] [place] [address] Emergency Department Summary 08/30/24 MR#: [id number] Acct: [id number] Name: JEZ HAIDER Rep #: [id number] : 2000 24 From: Xu Gordon MD PCP: Dr. Adam Paiz MD Status:REG ER Location: ED HPI History of Present Illness Chief Complaint: Chest Pain Narrative Narrative: 24-year-old male past medical history of cerebral palsy presents with generalized weakness and his heart feeling heavy as well as subjective fever and feeling cold. The symptoms began around 2 PM yesterday afternoon. He states he was sent home from work. He is not sure if he had food poisoning because he vomited twice yesterday without any blood in his emesis. His symptoms began approximately 23 hours ago. No exacerbating or alleviating factors but he states he feels weak and drained and that his heart feels heavy. [facility] Medical History Migraines Herniated lumbar disc without myelopathy Cerebral palsy Home Medications ???Medication ???Instructions ???Recorded ???Last Taken ???Type cyclobenzaprine 10 mg tablet 10 mg PO TID PRN Muscle Spasm #15 08/21/23 Unknown Rx TABLETS oxycodone-acetamino phen 5 mg-325 1 tab PO Q6H PRN pain 3 days #12 0 01/18/24 Unknown Rx mg tablet (Percocet) tabs prednisone 20 mg tablet 40 mg (2 x 20 mg) PO DAILY 5 days 01/18/24 Unknown Rx #10 tabs naproxen 500 mg tablet 500 mg PO BID #14 tabs 02/12/24 Un known Rx hydrocortisone 2.5 % topical cream 1 applic HI QHS #30 grams Unknown Rx with perineal applicator (Proctosol HC) Allergy/AdvReac Type Severity Reaction Status Date / Time latex Allergy Hives Verified 02/26/24 11:25 adhesive tape AdvReac Rash Verified 02/26/24 11:25 Surgical History History of appendectomy Social History Smoking Status: Never smoker alcohol intake: never substance use type: does not use ROS ROS ED ROS Narrative Review of systems positive for subjective fever alternating with feeling cold. No rigors. 2 episodes of nausea and vomiting yesterday. No recent cough or shortness of breath. States body and muscles feel tight and heart feels heavy. No dysuria or hematuria. Denies any exacerbating or alleviating factors. EXAM Physical Exam Narrative Exam Narrative: Afebrile. Vital signs noted. Nontoxic-appearing. Cardiovascular examination reveals a regular rate and rhythm. Lungs are clear to auscultation bilaterally. Abdomen is soft and nontender with normal active bowel sounds. No guarding or rebound. Neurological examination nonfocal, nonlateralizing. No noted pedal edema. Const Vital Signs: 08/30/24 13:06 08/30/24 13:06 Temperature 98 F Temperature Source Temporal Pulse Rate 82 Respiratory Rate 14 Respiratory Effort Normal Respiratory Pattern Normal Blood Pressure 138/73 H Blood Pressure Mean 94 Pulse Ox 98 Oxygen Delivery Method Room Air MDM MDM MDM Narrative Medical decision making narrative: Differential diagnosis includes but not limited to dehydration versus other electrolyte imbalance versus viral syndrome versus pneumonia. I have low suspicion for acute coronary syndrome as the patient states he is not having chest pain although that is what he was triaged as. He denies chest pain but states he feels weak, drained, and tired/fatigued. EKG was obtained and interpreted by myself independently as normal sinus rhythm at 66 bpm without ectopy or acute ST changes. No STEMI. I reviewed his laboratory work and he has slight neutropenia 4.3 and when compared to prior labs he has had this previously. I think this is more nonspecific. Hemoglobin normal at 16.2 with kelton tocrit 48.7, platelet count normal at 218. CMP is remarkable for a BUN of 20 with a normal creatinine of 0.97 which could be slight dehydration. Sodium is normal at 140 and potassium 3.7, normal. LFTs show alk phos low at 32 which I think is nonspecific. High-sensitivity troponin is less than 6. I feel this is greater than a 6-hour troponin as his symptoms began yesterday at around 2 PM. I do not feel he requires serial enzymes. Respiratory swab is negative for COVID, influenza A and B, and RSV. UA shows 0 WBCs. I do not feel antibiotics are indicated. Chest x-ray interpreted by myself independently in 1 view shows no evidence of pneumonia or pneumothorax. I reviewed the radiology report which confirms my independent interpretation. Patient was seen ambulating to the restroom without difficulty, and back to his cot. He does have a baseline limp. At this point in time, I feel he can be discharged to follow-up after his IV fluids are compl (more content not included)... Normal [facility] Eosinophil percentageOrdered By: Xu Gordon on 08-30-2024 Eosinophils/100 WBC (Bld) 1.9 % 0-5 [facility] Epithelial cells.squamous LM Ql (Urine sed)Ordered By: Xu Gordon on 08-30-2024 Epithelial cells.squamous LM.HPF (Urine sed) [#/Area] 0 /[HPF] 0-5 [facility] Erythrocyte distribution wid th ratioOrdered By: Xu Gordon on 08-30-2024 Erythrocyte distribution width (RBC) [Ratio] 12.6 % 11.6-14.6 [facility] Erythrocyte distribution wid th standard deviationOrdered By: Xu Gordon on 08-30-2024 Erythrocyte distribution width (RBC) [Entitic vol] 42.7 fL 35.1-43.9 [facility] Erythrocyte distribution width (RBC) [Ratio] 42.7 fl 35.1-43.9 [facility] Estimation of creatinine yudy aranceOrdered By: Xu Gordon on 08-30-2024 Estimated Creatinine Clearance Calc 95.16 ml/min 50-250 [facility] GFR/1.73 sq M.predicted nena g non-blacks MDRD (S/P/Bld) [Vol rate/Area]Ordered By: Xu Gordon on 08-30-2024 Estimated GFR (MDRD) Non-Af Amer 111 >60 [facility] Comment on above: mL/min/1.73m2 CKD-EP I Creatinine Equation (2020) Glomerular filtration rate ( GFR) estimation/1.73 sq m using serum, plasma, or whole bOrdered By: Xu Gordon on 08-30-2024 GFR/1.73 sq M.predicted among non-blacks MDRD (S/P/Bld) [Vol rate/Area] 111 mL/min/{1.73_m2} >60 [facility] Comment on above: mL/min/1.73m2 CKD-EP I Creatinine Equation (2020) Glucose Ql (U)Ordered By: Montez Gordon on 08-30-2024 Urine Glucose (UA) Normal mg/dl Normal [facility] Hematocrit Auto (Bld) [Volum e fraction]Ordered By: Xu Gordon on 08-30-2024 Hematocrit (Bld) [Volume fraction] 48.7 % 40-54 [facility] Hemoglobin measurementOrdere d By: Xu Gordon on 08-30-2024 Hemoglobin (Bld) [Mass/Vol] 16.2 g/dL 13.0-16.5 [facility] Immature granulocytes/100 WB C Auto (Bld)Ordered By: Xu Gordon on 08-30-2024 Immature granulocytes/100 WBC (Bld) 0.500 % 0.0-0.9 [facility] Comment on above: IG% - Immature Granu locytes (promyelocytes, myelocytes and metamyelocytes) > 1% indicates that a LEFT SHIFT is Present. Influenza virus A and B and SARS-CoV-2 (COVID-19) and Respiratory syncytial virus RNAOrdered By: Xu Gordon on 08-30-2024 SARS-CoV-2 (COVID-19) RNA LISA+probe Ql (Unsp spec) [facility] Ketones Test strip Ql (U)Ord ered By: Xu Gordon on 08-30-2024 Ketones Ql (U) Negative Negative [facility] L499.0042on 08-30-2024 Trop T High Sen Normal <=22 [facility] Comment on above: Result Comment: Canc elled via OM: Ordered Performed By: #### L 499.0042 ####[facility] [address] [place], [address] L501.4021on 08-30-2024 Trop T High Sen < 6 Normal <=22 [facility] Comment on above: Performed By: #### L 501.4021 ####[facility] [address] [place], [address] Laboratory - Chemistry and C hemistry - challengeOrdered By: Xu Sierramaria elena on 08-30-2024 AST [Catalytic activity/Vol] 25 U/L <38 [facility] Lymphocytes Auto (Unsp spec) [#/Vol]Ordered By: Xu Gordon on 08-30-2024 Lymphocytes (Bld) [#/Vol] 1.86 10*3/uL 0.83-4.51 [facility] Lymphocytes/100 WBC Auto (Un sp spec)Ordered By: Xu Gordon on 08-30-2024 Lymphocytes/100 WBC (Bld) 43.2 % High 19-41 [facility] M100.678on 08-30-2024 M100.678 SARS-CoV-2 (COVID 19) Negative INFLUENZA A Negative INFLUENZA B Negative RSV PCR Negative Normal [facility] Comment on above: Performed By: #### M 100.678 #### [facility] [address] [place], [address] MCV (mean corpuscular volume ) determinationOrdered By: Xu Gordon on 08-30-2024 MCV (RBC) [Entitic vol] 91.9 fL 80-94 [facility] Mean corpuscular hemoglobin (MCH) determinationOrdered By: Xu Gordon on 08-30-2024 MCH (RBC) [Entitic mass] 30.6 pg 27.0-32.0 [facility] Mean corpuscular hemoglobin concentration (MCHC) determinationOrdered By: Xu Gordon on 08-30-2024 MCHC (RBC) [Mass/Vol] 33.3 g/dL 32-36 [facility] Mean platelet volume determi nationOrdered By: Xu Gordon on 08-30-2024 Platelet mean volume (Bld) [Entitic vol] 11.8 fL 6.2-12.0 [facility] Microscopic analysis of urin e for red blood cells (RBC)Ordered By: Xu Gordon on 08-30-2024 Microscopic analysis of urine for red blood cells (RBC) 0 SEEN /hpf 0-5 [facility] Urine RBC 0 SEEN /hpf 0-5 [facility] Monocyte percentageOrdered B y: Xu Gordon on 08-30-2024 Monocytes/100 WBC (Bld) 6.3 % 0-10 [facility] Mucus LM Ql (Urine sed)Order ed By: Xu Gordon on 08-30-2024 Mucus Ql (Urine sed) 1+ /hpf [facility] Neutrophil percentageOrdered By: Xu Gordon on 08-30-2024 Neutrophils/100 WBC (Bld) 47.2 % 47-70 [facility] Nitrite Test strip Ql (U)Ord ered By: Xu Gordon on 08-30-2024 Nitrite Ql (U) Negative Negative [facility] No Panel InformationOrdered By: Xu Gordon on 08-30-2024 Troponin T High Sensitivity < 6 ng/L <22 [facility] Nucleated red blood cell per centageOrdered By: Xu Gordon on 08-30-2024 Nucleated RBC/100 WBC (Bld) [Ratio] 0 % 0-5 [facility] Platelet countOrdered By: Montez Gordon on 08-30-2024 Platelets (Bld) [#/Vol] 218 10*3/uL 150-450 [facility] Potassium (Unsp spec) [Mass/ Vol]Ordered By: Xu Gordon on 08-30-2024 Potassium [Moles/Vol] 3.7 mmol/L 3.3-5.1 [facility] Potassium measurement (mass/ volume)Ordered By: Xu Gordon on 08-30-2024 Potassium (Unsp spec) [Mass/Vol] 3.7 mmol/L 3.3-5.1 [facility] Protein Test strip Ql (U)Ord ered By: Xu Gordon on 08-30-2024 Protein Ql (U) 30 mg/dl High Negative [facility] RBC Auto (Bld) [#/Vol]Ordere d By: Xu Gordon on 08-30-2024 RBC (Bld) [#/Vol] 5.30 10*6/uL 4.6-6.2 [facility] Serum creatinine measurement (mass/volume)Ordered By: Xu Gordon on 08-30-2024 Creatinine [Mass/Vol] 0.97 mg/dL 0.70-1.20 [facility] Serum globulin measurementOr dered By: Xu Gordon on 08-30-2024 Globulin (S) [Mass/Vol] 6.6 g/dL High 2.2-4.2 [facility] Serum glucose measurement (m ass/volume)Ordered By: Xu Gordon on 08-30-2024 Glucose [Mass/Vol] 92 mg/dL 70-99 [facility] Serum or plasma alanine mullins otransferase (ALT) measurementOrdered By: Xu Gordon on 08-30-2024 ALT [Catalytic activity/Vol] 18 U/L <47 [facility] Serum or plasma albumin marita urement (mass/volume)Ordered By: Xu Gordon on 08-30-2024 Albumin [Mass/Vol] 5.0 g/dL 3.5-5.0 [facility] Serum or plasma albumin/glob ulin mass ratioOrdered By: Xu Gordon on 08-30-2024 Albumin/Globulin [Mass ratio] 0.2 {ratio} Low 0.9-2.4 [facility] Serum or plasma alkaline mercy sphatase measurementOrdered By: Xu Gordon on 08-30-2024 ALP [Catalytic activity/Vol] 32 U/L Low 40-129 [facility] Serum or plasma calcium marita urement (mass/volume)Ordered By: Xu Gordon on 08-30-2024 Calcium [Mass/Vol] 9.7 mg/dL 7.6-11.0 [facility] Serum or plasma urea nitroge n measurement (mass/volume)Ordered By: Xu Gordon on 08-30-2024 Urea nitrogen [Mass/Vol] 20 mg/dL High 4-19 [facility] Sodium levelOrdered By: Xu Gordon on 08-30-2024 Sodium [Moles/Vol] 140 mmol/L 133-145 [facility] Squamous epithelial cells de tection in urine sediment by light microscopyOrdered By: Xu Gordon on 08-30-2024 Epithelial cells.squamous LM Ql (Urine sed) 0-5 SEEN /hpf 0-5 [facility] Total proteinOrdered By: Arline Gordon on 08-30-2024 Protein [Mass/Vol] 7.9 g/dL 5.9-8.4 [facility] Urinalysis, Completeon 08-30 BACTERIA 2+ /hpf Normal None Seen [facility] Comment on above: Order Comment: CLEAN CATCH Performed By: #### L 400.0001 ####[facility] [address] [place], [place], [id number] EPI,SQUAMOUS 0-5 SEEN Normal 0-5 [facility] Comment on above: Order Comment: CLEAN CATCH Performed By: #### L 400.0001 ####[facility] [address] [place], [address] Mucus Ql (Urine sed) 1+ /hpf Normal [facility] Comment on above: Order Comment: CLEAN CATCH Performed By: #### L 400.0001 ####[facility] [address] [place], [address] RBC 0 SEEN Normal 0-5 [facility] Comment on above: Order Comment: CLEAN CATCH Performed By: #### L 400.0001 ####[facility] [address] [place], [address] WBC 0 SEEN Normal 0-5 [facility] Comment on above: Order Comment: CLEAN CATCH Performed By: #### L 400.0001 ####[facility] [address] [place], [address] Urine blood detectionOrdered By: Xu Gordon on 08-30-2024 Urine Occult Blood Negative Negative [facility] Urine clarityOrdered By: Arline Gordon on 08-30-2024 Clarity (U) Clear Clear [facility] Urine color determinationOrd ered By: Xu Gordon on 08-30-2024 Color (U) Yellow Yellow [facility] Urine glucose detectionOrder ed By: Xu Gordon on 08-30-2024 Glucose Ql (U) Normal mg/dl Normal [facility] Urine leukocyte esterase det ection by dipstickOrdered By: Xu Gordon on 08-30-2024 Leukocyte esterase Test strip Ql (U) Negative Negative [facility] Urine pHOrdered By: Xu livingston on 08-30-2024 pH (U) 6.0 [pH] 5.0 - 8.0 [facility] Urine sediment bacteria coun t by microscopy (number/high power field)Ordered By: Xu Gordon on 08-30-2024 Bacteria LM.HPF (Urine sed) [#/Area] 2 /[HPF] None Seen [facility] Urine specific gravity measu rementOrdered By: Xu Gordon on 08-30-2024 Specific gravity (U) [Rel density] 1.025 1.002-1.030 [facility] Urine urobilinogen measureme ntOrdered By: Xu Gordon on 08-30-2024 Urobilinogen Ql (U) Normal mg/dl Normal [facility] Urobilinogen Ql (U)Ordered B y: Xu Gordon on 08-30-2024 Urine Urobilinogen Normal mg/dl Normal [facility] White blood cell (WBC) count Ordered By: Xu Gordon on 08-30-2024 WBC (Bld) [#/Vol] 4.3 10*3/uL Low 4.4-11.0 [facility] White blood cell countOrdere d By: Xu Gordon on 08-30-2024 Urine WBC 0 SEEN /hpf 0-5 [facility] White blood cell count 0 SEEN /hpf 0-5 [facility] CNOVon 08-04-2024 CNOV Office Visit ([facility]) ---- JEZ HAIDER ([id number]) 2000 M Date Time Provider Department 08/04/24 6:30 PM MAYELIN NICOLAS WSTR During your visit today, we recorded the following information about you: Temperature Pulse Respiration Blood pressure 98 degrees 90/minute 18/minute 134/80 Weight 57 kg Mayelin Nicolas PA-C 08/04/2024 6:51 PM Signed This note was created using [employer]. Subjective Jez Haider is a 24 year old male. Patient is a 24-year-old male who complains of fever, chills, sore throat and myalgia that he has been experiencing for the past 3 days. Patient describes increased weakness and fatigue and in general feeling of overall illness. Patient reports no congestion, sinus pressure, ear pain or cough. Diarrhea Associated symptoms include chills and myalgias. Review of Systems Constitutional: Positive for chills, fatigue and fever. HENT: Positive for sore throat. Gastrointestinal: Positive for diarrhea. Musculoskeletal: Positive for myalgias. All other systems reviewed and are negative. Objective BP 134/80 Pulse 90 Temp 36.7 ?C (98 ?F) Resp 18 Wt 57 kg (125 lb 10.6 oz) SpO2 96% BMI 19.68 kg/m? Physical Exam Vitals and nursing note reviewed. Constitutional: Appearance: Normal appearance. He is normal weight. HENT: Head: Normocephalic and atraumatic. Right Ear: Tympanic membrane, ear canal and external ear normal. Left Ear: Tympanic membrane, ear canal and external ear normal. Nose: Nose normal. Mouth/Throat: Mouth: Mucous membranes are moist. Pharynx: Oropharynx is clear. Posterior oropharyngeal erythema present. Eyes: Extraocular Movements: Extraocular movements intact. Conjunctiva/sclera: Conjunctivae normal. Pupils: Pupils are equal, round, and reactive to light. Cardiovascular: Rate and Rhythm: Normal rate and regular rhythm. Pulses: Normal pulses. Heart sounds: Normal heart sounds. Pulmonary: Effort: Pulmonary effort is normal. Breath sounds: Normal breath sounds. Abdominal: General: Abdomen is flat. Bowel sounds are normal. There is no distension. Palpations: Abdomen is soft. Tenderness: There is no abdominal tenderness. Musculoskeletal: Cervical back: Normal range of motion and neck supple. Skin: General: Skin is warm and dry. Capillary Refill: Capillary refill takes less than 2 seconds. Neurological: General: No focal deficit present. Mental Status: He is alert and oriented to person, place, and time. Psychiatric: Mood and Affect: Mood normal. Behavior: Behavior normal. Thought Content: Thought content normal. Judgment: Judgment normal. Assessment and Plan Physical exam findings as noted above. Rapid strep test is positive. Patient was provided with a prescription for Augmentin 875-125 mg. Patient also requests a refill for a muscle relaxant medication for his chronic myalgia and was provided with a prescription for robaxin 500 mg. Supportive care instructions were discussed and the patient was placed off work -05 August 2024. CLINICAL IMPRESSION: Acute Streptococcal Tonsillitis; Chronic Myalgia ASSESSMENT/PLAN: 1. Sore throat - ICD9: 462, ICD10: J02.9 (primary diagnosis) - STREP A MOLECULAR (POC) 2. Acute non-recurrent streptococcal tonsillitis - ICD9: 034.0, ICD10: J03.00 - AMOXICILLIN 875 MG-POTASSIUM CLAVULANATE 125 MG TABLET 3. Myalgia - ICD9: 729.1, ICD10: M79.10 - METHOCARBAMOL 500 MG TABLET Mayelin Nicolas PA-C Allergies As of Date: 08/04/2024 Noted Allergy Reaction LATEX 03/22/2016 2 - Rash Date Reviewed: 08/04/2024 Reviewed by: Bita Crowell MA - Fully Assessed Reason for Visit: Diarrhea [35] Cmt: headache, bodyaches and sore throat x 3 days Primary Visit Diagnosis:Sore throat [J02.9] Other Visit Diagnoses:Acute non-recurrent streptococcal tonsillitis [J03.00] Myalgia [M79.10] Order(s):STREP A MOLECULAR (POC) [4251530] Order #: [id number]. #:[id number] amoxicillin-clavula chelsea potassium (AUGMENTIN) 875-125 mg per tabletTake 1 tablet by mouth two times a day for 10 days.Disp: 20 tabletRfl: 0 methocarbamol (ROBAXIN) 500 mg tabletTake 1 tablet by mouth three times a day for 5 days.Disp: 15 tabletRfl: 0 Prescriptions as of 08/04/2024 - amoxicillin-clavula chelsea potassium (AUGMENTIN) 875-125 mg per tablet Take 1 tablet by mouth two times a day for 10 days. - methocarbamol (ROBAXIN) 500 mg tablet Take 1 tablet by mouth three times a day for 5 days. - hydrocortisone (ANUSOL-HC) 2.5 % rectal cream - ondansetron orally disintegrating (ZOFRAN ODT) 4 mg disintegrating tablet Take 1 tablet by mouth every 6 hours as needed. 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 Normal [facility] STREP A MOLECULAR (POC)on Interpretation and review of laboratory results Abnormal [facility] Procedural Control Valid [facility] Strep A (POCT) Positive Abnormal Negative [facility] CNOVon 04-16-2024 CNOV Office Visit ([facility]) ---- JEZ HAIDER ([id number]) 2000 M Date Time Provider Department 04/16/24 3:30 PM SCOT VALDEZ [facility] During your visit today, we recorded the following information about you: Temperature Pulse Respiration Blood pressure 96.9 degrees 85/minute 20/minute 120/78 Weight 54.5 kg Scot Valdez APRN.CNP 04/16/2024 4:11 PM Signed Subjective HPI HPI Jez Haider is a 23 year old male who presents today for CC of vomiting, body aches, sob. This started 1 day ago. Has tried otc medication for relief. Symptoms are worsened by nothing. Denies cough, cp, fever. Last void few hours ago. Seen in ER last night for these s/s, dx viral. .Patient presents with: Nausea AND Vomiting: Sob x 1 day PAST MEDICAL HISTORY Diagnosis Date Cerebral palsy (HCC) PAST SURGICAL HISTORY Procedure Laterality Date LEG SURGERY HX x4 S TENDON - ACHILLES Bilateral 01/30/2018 [facility] ALLERGIES Latex MEDICATIONS hydrocortisone (ANUSOL-HC) 2.5 % rectal cream ondansetron orally disintegrating (ZOFRAN ODT) 4 mg disintegrating tablet Take 1 tablet by mouth every 6 hours as needed. cyclobenzaprine (FLEXERIL) 10 mg tablet Take 1 tablet by mouth three times a day as needed. cyclobenzaprine (FLEXERIL) 10 mg tablet Take 10 mg by mouth three times a day as needed. (Patient not taking: Reported on 04/16/2024) FAMILY HISTORY Problem Relation Age of Onset None Father None Mother Cancer Maternal Grandmother throat Alzheimer's Disease Maternal Grandmother None Sister None Brother None Brother None Brother None Brother None Sister None Sister None Sister Social History Tobacco Use Smoking status: Never Smokeless tobacco: Never Substance Use Topics Alcohol use: No Drug use: No Review of Systems Constitutional: Positive for chills, fever and malaise/fatigue. HENT: Negative for congestion, ear pain, nosebleeds and sore throat. Respiratory: Positive for shortness of breath. Negative for cough and wheezing. Cardiovascular: Negative for chest pain. Gastrointestinal: Positive for nausea and vomiting. Negative for abdominal pain, constipation and diarrhea. Musculoskeletal: Negative for neck pain. Skin: Negative for itching and rash. Objective Blood pressure 120/78, pulse 85, temperature 36.1 ?C (96.9 ?F), resp. rate 20, weight 54.5 kg (120 lb 2.4 oz), SpO2 98%. Physical Exam Constitutional: General: He is not in acute distress. Appearance: Normal appearance. He is not toxic-appearing. HENT: Mouth/Throat: Lips: [place]. Mouth: Mucous membranes are moist. Cardiovascular: Rate and Rhythm: Normal rate and regular rhythm. Heart sounds: Normal heart sounds. Pulmonary: Effort: Pulmonary effort is normal. Breath sounds: Normal breath sounds. Abdominal: General: Bowel sounds are normal. Palpations: Abdomen is soft. Tenderness: There is no abdominal tenderness. Lymphadenopathy: Cervical: No cervical adenopathy. Right cervical: No superficial cervical adenopathy. Skin: General: Skin is warm and dry. ASSESSMENT/PLAN: 1. Nausea and vomiting, unspecified vomiting type - ICD9: 787.01, ICD10: R11.2 (primary diagnosis) Viral syndrome Brat diet discussed F/u for worsening or continued s/s -If you experience chest pain/shortness of breath go to ER - ONDANSETRON 4 MG DISINTEGRATING TABLET 2. Muscle ache - ICD9: 729.1, ICD10: M79.10 - CYCLOBENZAPRINE 10 MG TABLET Scot Valdez APRN.[employer] Allergies As of Date: 04/16/2024 Noted Allergy Reaction LATEX 03/22/2016 2 - Rash Date Reviewed: 04/16/2024 Reviewed by: Lexus Chang MA - Fully Assessed Reason for Visit: Nausea AND Vomiting [237] Cmt: Sob x 1 day Primary Visit Diagnosis:Nausea and vomiting, unspecified vomiting type [R11.2] Other Visit Diagnosis:Muscle ache [M79.10] Order(s):ondansetro n orally disintegrating (ZOFRAN ODT) 4 mg disintegrating tabletTake 1 tablet by mouth every 6 hours as needed.Disp: 15 tabletRfl: 0 cyclobenzaprine (FLEXERIL) 10 mg tabletTake 1 tablet by mouth three times a day as needed.Disp: 15 tabletRfl: 0 Prescriptions as of 04/16/2024 - hydrocortisone (ANUSOL-HC) 2.5 % rectal cream - ondansetron orally disintegrating (ZOFRAN ODT) 4 mg disintegrating tablet Take 1 tablet by mouth every 6 hours as needed. - cyclobenzaprine (FLEXERIL) 10 mg tablet Take 1 tablet by mouth three times a day as needed. - cyclobenzaprine (FLEXERIL) 10 mg tablet Take 10 mg by mouth three times a day as needed. 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 Normal [facility] Abdomen Single Viewon 2023 Abdomen Single View [facility] Imaging Services [address] [place] [address] Abdomen Single View MR#: [id number] Acct: [id number] Name: JEZ HAIDER Rep #: [id number] : 2000 M 23 From: Randal sparrow MD PCP: Dr. Adam Paiz MD Status: REG ER Study: Abdomen Single View Date of Exam: 02/26/24 Exam# [id number] Ordering Dr: Kristian Lagos MD -[id number] STUDY: X-RAY - ABDOMEN/PELVIS REASON FOR EXAM: Male, 23 years old. Diffuse abd pain TECHNIQUE: Single AP view of the abdomen / pelvis. COMPARISON: None. FINDINGS: Normal visualized lung bases. There is an abundance of fecal material throughout the colon. The visualized liver, spleen and kidneys are grossly normal in size and morphology. Normal soft tissue structures. Prior left intramedullary adam fixation of the left femur with deformity of the left femoral head and neck. RAD/Abdomen Single View IMPRESSION: Large amount of fecal material in the colon. Electronically Signed: Randal Coates MD at 12:47 EDT , CC: Dr. Kristian Lagos MD; Dr. Adam Paiz MD Floor Hand: Signed Normal [facility] Emergency Department Summary on 02-26-2024 Emergency Department Summary [facility] Medical Records Department [address] [place] [address] Emergency Department Summary 02/26/24 MR#: [id number] Acct: [id number] Name: JEZ HAIDER Rep #: [id number] : 2000 23 From: Kristian Lagos MD PCP: Dr. Adam Paiz MD Status:REG ER Location: ED HPI HPI - GI History of Present Illness Chief Complaint: Abd Pain Informant: patient Narrative Narrative: Couple hours ago, patient started having paramedical abdominal pain, it became severe cramping aching, he was at work when this happened, he felt the need to have a bowel movement but was unable, and then states he was on the floor because the pain was so bad. Then he tried to urinate and had some issues urinating at the same time. When he did urinate here it was normal but he is concerned about this, nation. He states he is very concerned about cancer. He states cancer runs in the family, strongly. He states for the past 6 months off-and-on he has had a small ball shaped mass emanating from his anus off-and-on. He states he has had some minor bleeding from it on occasion. He states it is not there right now. He does have constipation from time to time where he does not go for 3 days or so because he cannot, then he eats something different and he is able to go, but usually goes every day or 2. Patient states abdominal pain is gone right now. [facility] Medical History Migraines Herniated lumbar disc without myelopathy Cerebral palsy Home Medications ???Medication ???Instructions ???Recorded ???Last Taken ???Type cyclobenzaprine 10 mg tablet 10 mg PO TID PRN Muscle Spasm #15 08/21/23 Unknown Rx TABLETS oxycodone-acetamino phen 5 mg-325 1 tab PO Q6H PRN pain 3 days #12 01/18/24 Unknown Rx mg tablet (Percocet) tabs prednisone 20 mg tablet 40 mg (2 x 20 mg) PO DAILY 5 days 01/18/24 Unknown Rx #10 tabs naproxen 500 mg tablet 500 mg PO BID #14 tabs 02/12/24 Unknown Rx hydrocortisone 2.5 % topical cream 1 applic HI QHS #30 grams 02/26/24 Unknown Rx with perineal applicator (Proctosol HC) Allergy/AdvReac Type Severity Reaction Status Date / Time latex Allergy Hives Verified 02/26/24 11:25 adhesive tape AdvReac Rash Verified 02/26/24 11:25 Surgical History History of appendectomy Social History Smoking Status: Never smoker alcohol intake: never substance use type: does not use ROS ROS ED Constitutional Constitutional ED: Denies chills or fever(s) Eyes Eyes: Denies change in vision or diplopia ENT ENT ED: Denies rhinorrhea or sore throat Cardiovascular Cardiovascular: Denies chest pain or palpitations Respiratory/Chest Respiratory/Chest: Denies cough or dyspnea Gastrointestinal Gastrointestinal: Reports abdominal pain and constipation; Denies diarrhea, nausea or vomiting Genitourinary Genitourinary ED: Reports as per HPI and difficulty urinating; Denies dysuria, hematuria or urinary frequency Musculoskeletal Musculoskeletal: Reports other Details: Periumbilical abdominal pain radiated into his back, but it went away with the abdominal pain ; Denies neck pain Integumentary Denies abscess or rash Neurologic Neurologic: Denies headache(s), paresthesias or weakness Psychiatric Psychiatric: Denies anxiety or suicidal thoughts EXAM Physical Exam Const Vital Signs: 02/26/24 11:24 Temperature 97.7 F L Temperature Source Oral Pulse Rate 94 Respiratory Rate 16 Blood Pressure 149/83 H Blood Pressure Mean 105 Pulse Ox 100 Oxygen Delivery Method Room Air Positive well nourished and well developed General Appearance ED: well developed and NAD HEENT Reports moist mucous membranes normocephalic and atraumatic Eyes PERRL and EOMs intact bilaterally Neck full ROM and supple Resp normal respiratory effort and clear to auscultation bilaterally Cardio regular rate, regular rhythm and no murmurs GI non-tender and non-distended GI Narrative: Rectal exam unremarkable, nontender, no mass visible or palpable, no external or prolapsed hemorrhoids. Auscultation: normoactive bowel sounds Palpation: soft Back/Spine no CVA tenderness General Back: other FROM Extremity normal to inspection General Extremety ED: Negative for edema, pulses abnormal or tenderness General Extremity: Negative for edema or pulses abnormal Neuro oriented x3, CN's II-XII intact bilaterally and no sensory deficits noted Sensorium / Orientation: awake and alert Motor Exam: strength 5/5 throughout Skin no rashes or lesions noted and no wounds MDM MDM Lab Data Labs: Laboratory Results - last 24 hr 02/26/24 11:43 (more content not included)... Normal [facility] Urinalysis, Completeon 02-25 BACTERIA 1+ /hpf Normal None Seen [facility] Comment on above: Order Comment: LUISITO CTOR TO SPECIFY Performed By: #### L 400.0001 #### [facility] Laboratory [address] [facility]. [place], [place], [id number] EPI,SQUAMOUS 0 SEEN Normal 0-5 [facility] Comment on above: Order Comment: LUISITO CTOR TO SPECIFY Performed By: #### L 400.0001 #### [facility] Laboratory [address] [facility] [place], [address] Mucus Ql (Urine sed) 0 SEEN Normal [facility] Comment on above: Order Comment: LUISITO CTOR TO SPECIFY Performed By: #### L 400.0001 #### [facility] Laboratory [address] [facility] [place], [address] RBC 0 SEEN Normal 0-5 [facility] Comment on above: Order Comment: LUISITO CTOR TO SPECIFY Performed By: #### L 400.0001 #### [facility] Laboratory [address] [facility] [place], [address] WBC 0 SEEN Normal 0-5 [facility] Comment on above: Order Comment: COLLE CTOR TO SPECIFY Performed By: #### L 400.0001 #### [facility] Laboratory [address] [place], [address] Emergency Department Summary on 02-12-2024 Emergency Department Summary [facility] Medical Records Department [address] [place] [address] Emergency Department Summary 02/12/24 MR#: [id number] Acct: [id number] Name: JEZ HAIDER Rep #: [id number] : 2000 23 From: Ashvin Durant MD PCP: Dr. Adam Paiz MD Status:REG ER Location: ED HPI History of Present Illness Chief Complaint: Lower Extremity Injury Detail of Chief Complaint: Increasing right knee pain Informant: patient Occured/Mechanism Comment: Atraumatic Onset/Context/Timin g Onset: Weeks and Month(s) Context: Gradual Onset Timing: Continuous and Waxes and wanes Quality of Pain: Dull and Aching Location: Right knee Current Severity: Mild Maximum Severity: Severe Worsened by: Walking, weightbearing Relieved by: Nothing Associated Symptoms Associated Symptoms: Negative for Parasthesia, Weakness or Loss of Funtion Narrative Narrative: Patient is a 23-year-old male. 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 He also has history of right knee effusion. He denies history of gout or pseudogout. He states he has arthritis in the joint. He denies fever or chills. He states his knee feels tight. He denies paresthesia, anesthesia or motor weakness. He denies swelling of the knee, redness, or warmth. Prior similar symptoms: Yes Recent Illness/Hospitaliza tion: No PFSH PFSH Medical History Migraines Herniated lumbar disc without myelopathy Cerebral palsy Home Medications ???Medication ???Instructions ???Recorded ???Last Taken ???Type cyclobenzaprine 10 mg tablet 10 mg PO TID PRN Muscle Spasm #15 08/21/23 Unknown Rx TABLETS oxycodone-acetamino phen 5 mg-325 1 tab PO Q6H PRN pain 3 days #12 01/18/24 Unknown Rx mg tablet (Percocet) tabs prednisone 20 mg tablet 40 mg (2 x 20 mg) PO DAILY 5 days 01/18/24 Unknown Rx #10 tabs naproxen 500 mg tablet 500 mg PO BID #14 tabs 02/12/24 Unknown Rx Allergy/AdvReac Type Severity Reaction Status Date / Time latex Allergy Hives Verified 02/12/24 20:33 adhesive tape AdvReac Rash Verified 02/12/24 20:33 Surgical History History of appendectomy Social History Smoking Status: Never smoker alcohol intake: never substance use type: does not use ROS ROS ED Constitutional Constitutional ED: Denies chills, fever(s), subjective, sweats or weight loss Gastrointestinal Gastrointestinal: Denies abdominal pain, constipation, diarrhea, nausea or vomiting Musculoskeletal Musculoskeletal: Reports other Details: Atraumatic right knee pain ; Denies arthralgias, back pain, myalgias or neck pain Integumentary Denies rash Neurologic Neurologic: Denies paresthesias or weakness Hematologic/Lymphat ic Hematologic/Lymphat ic: Denies easy bleeding or easy bruising EXAM Physical Exam Const Vital Signs: 02/12/24 20:31 Temperature 97.9 F Temperature Source Temporal Pulse Rate 86 Respiratory Rate 16 Blood Pressure 125/77 H Blood Pressure Mean 93 Pulse Ox 97 Oxygen Delivery Method Room Air Positive well nourished and well developed General Appearance ED: well developed and NAD HEENT normocephalic and atraumatic Eyes PERRL Eyes Narrative: Extract muscles intact. Sclera is anicteric Neck full ROM and supple Resp normal respiratory effort Cardio regular rate and regular rhythm Extremity normal to inspection Extremity Narrative: Patient is able to extend through 165 degrees and flex to approximately 100 degrees. There is a well-healed scar from prior surgery. There is no obvious swelling. There is no significant difference in appearance other than the scar. Patella is not ballotable. There is no effusion. There is laxity of the lateral collateral ligament bilaterally. There is no joint line tenderness. There is no tenderness over the quadricep or patellar tendon. There is no fullness or tenderness in the popliteal fossa. Gordo's test was negative. Modified Holly's test was negative. Patient complained of pain with the Larios's test. DP and PT pulse are palpable and 2+. General Extremety ED: Yes weight-bearing difficulty; Negative for cyanosis or edema General Extremity: weight-bearing difficulty; Negative for cyanosis or edema Neuro oriented x3, CN's II-XII intact bilaterally, moves all extremities and no sensory deficits noted Sensorium / Orientation: alert Motor Exam: strength 5/5 throughout Plantar Reflex: Downgoing: bilateral Psych mental status grossly normal Skin no wounds Lesions: no lesions Rashes: no rashes MDM MDM MDM Narrative Medical decision making narrative: Differential diagnosis would include ligamentous injury, osteoarthritis, unlikely gout or pseu (more content not included)... Normal [facility] Knee 4 or More Viewson 02-11 Knee 4 or More Views [facility] Imaging Services [address] [place] [address] [id number] Knee 4 or More Views MR#: [id number] Acct: [id number] Name: JEZ HAIDER Rep #: [id number] : 2000 M 23 From: Garcia pichardo MD PCP: Dr. Adam Paiz MD Status: PRE ER Study: Knee 4 or More Views Date of Exam: 02/12/24 Exam# [id number] Ordering Dr: J Luis Montelongo P. -[id number] INDICATION: PAIN EXAMINATION/TECHNIQ UE: X-RAY - RIGHT XR Knee Complete 4 Views or More COMPARISON: None. FINDINGS: No acute fracture or malalignment. No significant degenerative changes are seen. No joint effusion. The soft tissues are unremarkable. RAD/Knee 4 or More Views IMPRESSION: No acute radiographic abnormalities. Electronically Signed: Garcia Ovalles MD at 21:03 EDT , CC: Dr. Adam Paiz MD; ED PHYSICIAN PROVIDER Floor Hand: Signed Normal [facility] Emergency Department Summary on 01-18-2024 Emergency Department Summary [facility] Medical Records Department [address] [place] [address] Emergency Department Summary 01/18/24 MR#: [id number] Acct: [id number] Name: JEZ HAIDER Rep #: [id number] : 2000 23 From: Jose Randall DO PCP: Dr. Adam Paiz MD Status:DEP ER Location: ED HPI History of Present Illness Chief Complaint: Lower Extremity Injury Informant: patient Narrative Narrative: Patient is a 23-year-old male with past medical history of cervical palsy. He reports he has got chronic joint pain and back pain from this. 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 He denies any direct trauma but states that he noticed that this evening as he was trying to go up and down the stairs he was having bilateral knee pain and weakness. Secondary to the increasing pain he presents for evaluation [facility] Medical History Migraines Herniated lumbar disc without myelopathy Cerebral palsy Home Medications ???Medication ???Instructions ???Recorded ???Last Taken ???Type cyclobenzaprine 10 mg tablet 10 mg PO TID PRN Muscle Spasm #15 08/21/23 Unknown Rx TABLETS oxycodone-acetamino phen 5 mg-325 1 tab PO Q6H PRN pain 3 days #12 01/18/24 Unknown Rx mg tablet (Percocet) tabs prednisone 20 mg tablet 40 mg (2 x 20 mg) PO DAILY 5 days 01/18/24 Unknown Rx #10 tabs Allergy/AdvReac Type Severity Reaction Status Date / Time latex Allergy Hives Verified 12/30/23 05:25 adhesive tape AdvReac Rash Verified 12/30/23 05:25 Surgical History History of appendectomy Social History Smoking Status: Never smoker alcohol intake: never substance use type: does not use ROS ROS ED Constitutional Constitutional ED: Denies chills or fever(s) ENT ENT ED: Denies sore throat Cardiovascular Cardiovascular: Denies chest pain Respiratory/Chest Respiratory/Chest: Denies cough or dyspnea Gastrointestinal Gastrointestinal: Denies abdominal pain, diarrhea, nausea or vomiting Genitourinary Genitourinary ED: Denies dysuria Musculoskeletal Musculoskeletal: Reports back pain and other Details: Positive knee pain Integumentary Denies Abrasions or rash Neurologic Neurologic: Denies headache(s) or paresthesias Hematologic/Lymphat ic Hematologic/Lymphat ic: Denies easy bleeding or easy bruising EXAM Physical Exam Const Vital Signs: 01/18/24 22:50 01/18/24 23:24 Temperature 97 F L 97 F L Temperature Source Temporal Pulse Rate 98 96 Respiratory Rate 16 16 Blood Pressure 161/77 H 155/70 H Blood Pressure Mean 105 98 Pulse Ox 97 96 Positive well nourished and well developed General Appearance ED: well developed; Negative for pallor HEENT HEENT Narrative: Normocephalic atraumatic Eyes PERRL and EOMs intact bilaterally Neck supple Resp normal respiratory effort and clear to auscultation bilaterally Cardio regular rate and regular rhythm Extremity Extremity Narrative: Bilateral lower extremities are neurovascularly intact. No bony deformity or joint effusion noted. No overlying erythema or warmth. Patellar tendon is intact and knee ligaments are stable bilaterally. There is crepitance noted with Holly's sign concerning for tendinitis. No asymmetric edema no pitting edema negative Homans' sign bilaterally. No saddle anesthesia. Negative straight leg raise. No clonus or Babinski. Patellar reflexes are plus 2 out of 4 bilaterally Neuro oriented x3, CN's II-XII intact bilaterally and no sensory deficits noted Sensorium / Orientation: alert Motor Exam: strength 5/5 throughout Psych mental status grossly normal Skin no rashes or lesions noted and no wounds General Skin Exam: Negative for jaundice or pallor MDM MDM MDM Narrative Medical decision making narrative: Patient arrived to ER hypertensive but otherwise with stable vitals. He has past medical history of chronic joint pain secondary to his cerebral palsy and reports he has been performing more activity recently. Differential diagnosis is for tendinitis versus knee sprain versus potential bursitis or infectious process such as septic joint. The patient does not have fever there is no erythema or warmth he has full active range of motion and therefore I do not believe he has a septic joint and without effusion present or erythema my concern for bursitis is low as well. As there was no report or signs of trauma and he does not have any laxity of his ligaments I do not feel there is need for an imaging study. Also as he does not have asymmetric swelling or calf pain concern for DVT is low and I do not feel there is a need for a venous duplex. History and ex (more content not included)... Normal [facility] Basic Metabolic Profile (BMP )on 12-30-2023 BUN/CRE 28.6 RATIO High 10-20 [facility] Comment on above: Performed By: #### L 100.0100, L500.2500 #### [facility] Laboratory [address] [place], [address] CA,Total 9.7 mg/dL Normal 8.5-10.1 [facility] Comment on above: Performed By: #### L 100.0100, L500.2500 #### [facility] Laboratory [address] [place], [address] Chloride [Moles/Vol] 102 mmol/L Normal 98-107 [facility] Comment on above: Performed By: #### L 100.0100, L500.2500 #### [facility] Laboratory [address] [place], [address] CO2 [Moles/Vol] 33.0 mmol/L High 21.0-32.0 [facility] Comment on above: Performed By: #### L 100.0100, L500.2500 #### [facility] Laboratory [address] [place], [address] Creatinine [Mass/Vol] 0.77 mg/dL Normal 0.70-1.30 [facility] Comment on above: Result Comment: The validity of the calculated GFR GFRAA in patients over 70 years has not been determined. Clinical correlation is essential. Performed By: #### L 100.0100, L500.2500 #### [facility] Laboratory [address] [place], [address] ECRCL 103.72 ml/min Normal [facility] Comment on above: Performed By: #### L 100.0100, L500.2500 #### [facility] Laboratory [address] [place], [address] EST GFR - AA 158 mL/min Normal >60 [facility] Comment on above: Result Comment: Afri can Macanese GFR Calc Performed By: #### L 100.0100, L500.2500 #### [facility] Laboratory [address] [place], [address] GAP 5 Normal 5-15 [facility] Comment on above: Performed By: #### L 100.0100, L500.2500 #### [facility] Laboratory [address] [place], [address] GFR/1.73 sq M.predicted among non-blacks MDRD (S/P/Bld) [Vol rate/Area] 130 mL/min/{1.73_m2} Normal >60 [facility] [facility] Comment on above: Result Comment: Non- GFR Calc Performed By: #### L 100.0100, L500.2500 #### [facility] [address] [place], [address] Glucose [Mass/Vol] 99 mg/dL Normal 74-106 [facility] Comment on above: Performed By: #### L 100.0100, L500.2500 #### [facility] [address] [place], [address] Potassium [Moles/Vol] 3.5 mmol/L Normal 3.5-5.1 [facility] Comment on above: Performed By: #### L 100.0100, L500.2500 #### [facility] [address] [place], [address] Sodium [Moles/Vol] 140 mmol/L Normal 136-145 [facility] Comment on above: Performed By: #### L 100.0100, L500.2500 #### [facility] [address] [place], [address] Urea nitrogen [Mass/Vol] 22 mg/dL High 7-18 [facility] Comment on above: Performed By: #### L 100.0100, L500.2500 #### [facility] [address] [place], [address] CBC W/Diff, Automatedon 07-2 Absolute Lymph 1.76 X10 3/uL Normal 0.83-4.51 [facility] Comment on above: Performed By: #### L 100.0100, L500.2500 #### [facility] [address] [place], [address] Absolute Neut 3.5 X10 3/uL Normal 2.0-7.7 [facility] Comment on above: Performed By: #### L 100.0100, L500.2500 #### [facility] [address] [place], [address] Basophils/100 WBC (Bld) 0.7 % Normal 0-1 [facility] Comment on above: Performed By: #### L 100.0100, L500.2500 #### [facility] [address] [place], [address] Eosinophils/100 WBC (Bld) 2.6 % Normal 0-5 [facility] Comment on above: Performed By: #### L 100.0100, L500.2500 #### [facility] [address] [place], [address] Erythrocyte distribution width (RBC) [Ratio] 12.4 % Normal 11.6-14.6 [facility] Comment on above: Performed By: #### L 100.0100, L500.2500 #### [facility] [address] [place], [address] Hematocrit (Bld) [Volume fraction] 46.2 % Normal 40-54 [facility] Comment on above: Performed By: #### L 100.0100, L500.2500 #### [facility] [address] [place], [address] Hemoglobin (Bld) [Mass/Vol] 15.1 g/dL Normal 13.0-16.5 [facility] Comment on above: Performed By: #### L 100.0100, L500.2500 #### [facility] [address] [place], [address] IG% 0.200 Normal 0.0-0.9 [facility] Comment on above: Result Comment: IG% - Immature Granulocytes (promyelocytes, myelocytes and metamyelocytes) > 1% indicates that a LEFT SHIFT is Present. Performed By: #### L 100.0100, L500.2500 #### [facility] [address] [facility] [place], [address] Lymphocytes/100 WBC (Bld) 30.3 % Normal 19-41 [facility] Comment on above: Performed By: #### L 100.0100, L500.2500 #### [facility] [address] [place], [address] MCH (RBC) [Entitic mass] 29.7 pg Normal 27.0-32.0 [facility] Comment on above: Performed By: #### L 100.0100, L500.2500 #### [facility] [address] [place], [address] MCHC (RBC) [Mass/Vol] 32.7 g/dL Normal 32-36 [facility] Comment on above: Performed By: #### L 100.0100, L500.2500 #### [facility] [address] [place], [address] MCV (RBC) [Entitic vol] 90.9 fL Normal 80-94 [facility] Comment on above: Performed By: #### L 100.0100, L500.2500 #### [facility] [address] [place], [address] Monocytes/100 WBC (Bld) 6.9 % Normal 0-10 [facility] Comment on above: Performed By: #### L 100.0100, L500.2500 #### [facility] [address] [place], [address] Neutrophils/100 WBC (Bld) 59.3 % Normal 47-70 [facility] Comment on above: Performed By: #### L 100.0100, L500.2500 #### [facility] [address] [place], [address] Nucleated RBC (Bld) [#/Vol] 0 10*3/uL Normal 0-5 [facility] Comment on above: Performed By: #### L 100.0100, L500.2500 #### [facility] [address] [place], [address] Platelet mean volume (Bld) [Entitic vol] 11.6 fL Normal 6.2-12.0 [facility] Comment on above: Performed By: #### L 100.0100, L500.2500 #### [facility] [address] [place], [address] Platelets (Bld) [#/Vol] 203 10*3/uL Normal 150-450 [facility] Comment on above: Performed By: #### L 100.0100, L500.2500 #### [facility] [address] [place], [address] RBC (Bld) [#/Vol] 5.08 10*6/uL Normal 4.6-6.2 [facility] Comment on above: Performed By: #### L 100.0100, L500.2500 #### [facility] [address] [place], [address] RDW SD 41.1 fl Normal 35.1-43.9 [facility] Comment on above: Performed By: #### L 100.0100, L500.2500 #### [facility] [address] [place], [place], [address] WBC (Bld) [#/Vol] 5.8 10*3/uL Normal 4.4-11.0 [facility] Comment on above: Performed By: #### L 100.0100, L500.2500 #### [facility] [address] [place], [address] Emergency Department Summary on 12-30-2023 Emergency Department Summary [facility] Medical Records Department [address] [place] [address] Emergency Department Summary 12/30/23 MR#: [id number] Acct: [id number] Name: JEZ HAIDER Rep #: [id number] : 2000 23 From: Aleksandr Ronquillo DO PCP: Dr. Adam Paiz MD Status:REG ER Location: ED HPI History of Present Illness Chief Complaint: General Illness Informant: patient Onset/Context/Delroy garcía Onset: Today Context: Gradual Onset Timing: Continuous Quality: Fatigue, weakness Location: Generalized Worsened by: Nothing Relieved by: Nothing Narrative Narrative: Patient presents with fatigue, weakness, and nausea that began today. Patient states that he noticed this when he woke up early this morning to go to work. Patient states he has been eating fast food for breakfast, lunch, and dinner yesterday. Patient admits to nausea but denies any vomiting. Patient denies any diarrhea. Patient states he just feels weak and fatigued all over. Patient states nothing makes it better nothing makes it worse. Patient denies any fevers or chills. Patient denies any chest pain or shortness of breath. [facility] Medical History Migraines Herniated lumbar disc without myelopathy Cerebral palsy Home Medications ???Medication ???Instructions ???Recorded ???Last Taken ???Type cyclobenzaprine 10 mg tablet 10 mg PO TID PRN Muscle Spasm #15 08/21/23 Unknown Rx TABLETS Allergy/AdvReac Type Severity Reaction Status Date / Time latex Allergy Hives Verified 12/30/23 05:25 adhesive tape AdvReac Rash Verified 12/30/23 05:25 Surgical History History of appendectomy Social History Smoking Status: Never smoker alcohol intake: never substance use type: does not use ROS ROS ED Constitutional Constitutional ED: Denies chills or fever(s) Eyes Eyes: Denies blurry vision or change in vision ENT ENT ED: Denies rhinorrhea or sore throat Cardiovascular Cardiovascular: Denies chest pain or palpitations Respiratory/Chest Respiratory/Chest: Denies cough or dyspnea Gastrointestinal Gastrointestinal: Reports nausea; Denies vomiting Genitourinary Genitourinary ED: Denies dysuria or hematuria Musculoskeletal Musculoskeletal: Reports neck pain; Denies back pain Integumentary Denies abscess or rash Neurologic Neurologic: Reports weakness; Denies headache(s) Allergic/Immunologi c Allergic/Immunologi c ED: Denies mouth swelling or urticaria EXAM Physical Exam Const Vital Signs: 12/30/23 05:22 12/30/23 06:25 12/30/23 07:31 Temperature 97.8 F Temperature Source Temporal Pulse Rate 68 Respiratory Rate 18 16 Respiratory Effort Normal Non-Labored Respiratory Pattern Normal Blood Pressure 140/83 H Blood Pressure Mean 102 Pulse Ox 98 99 Oxygen Delivery Method Room Air Room Air Positive well nourished and well developed General Appearance ED: well developed and NAD HEENT Reports moist mucous membranes Neck supple and no JVD Resp normal respiratory effort and clear to auscultation bilaterally Cardio regular rate and regular rhythm GI non-tender and non-distended Palpation: soft Extremity normal to inspection General Extremety ED: Negative for edema or tenderness General Extremity: Negative for edema Neuro oriented x3, CN's II-XII intact bilaterally and no sensory deficits noted Sensorium / Orientation: alert Psych mental status grossly normal MDM MDM MDM Narrative Medical decision making narrative: Differential diagnosis includes viral illness, dehydration, and electrolyte abnormality. CBC will be obtained to assess for leukocytosis and anemia. Basic metabolic profile will be obtained to assess for electrolyte abnormality and renal function. COVID-19, influenza, and RSV PCR will be obtained to assess for viral illness. Lab Data Lab results narrative: CBC was reviewed and was within normal limits. Basic metabolic profile was reviewed BUN was slightly elevated at 22. The remainder is essentially within normal limits. COVID-19 PCR was reviewed and was negative. Influenza PCR was reviewed and was negative for influenza A and influenza B. RSV PCR was reviewed and was negative. Labs: Laboratory Results - last 24 hr 12/30/23 06:34 WBC 5.8 RBC 5.08 Hgb 15.1 Hct 46.2 MCV 90.9 MCH 29.7 MCHC 32.7 RDW Std Deviation 41.1 RDW Coeff of Kaveh 12.4 Plt Count 203 MPV 11.6 Immature Gran % (Auto) 0.200 Neut % (Auto) 59.3 Lymph % (Auto) 30.3 Snyder % (Auto) 6.9 Eos % (Auto) 2.6 Baso % (Auto) 0.7 Absolute Neuts (auto) 3.5 Absolute Lymphs (auto) 1.76 Nucleated RBC % 0 (more content not included)... Normal [facility] M100.678on 12-30-2023 M100.678 Normal Reference Range = Negative FLUABV+SARS-CoV-2+R SV Pnl Resp LISA+probe GeneXpert Instrument, PCR method SARS-CoV-2 (COVID 19) Negative INFLUENZA A Negative INFLUENZA B Negative RSV PCR Negative Normal [facility] Comment on above: Performed By: #### M 100.678 ####[facility] [id number] [place], [address] OV 10-23-2023 CNOV Office Visit (UCTR) ---- JEZ HAIDER ([id number]) 2000 M Date Time Provider Department 10/23/23 5:15 PM BUSHRA OLIVARES [facility] During your visit today, we recorded the following information about you: Temperature Pulse Respiration Blood pressure 98.8 degrees 95/minute 18/minute 145/76 Weight 54.2 kg Bushra Olivares APRN.ASSISTANT TENNIS COACH 10/23/2023 5:51 PM Signed Subjective Cough Associated symptoms include sore throat. Pertinent negatives include no chills, no ear pain, no headaches and no myalgias. Jez Haider is a 23 year old male who presents with cough, congestion, sore throat, body aches, feeling tired, and decreased appetite. He has not had a fever. He has not had any known sick contacts. He has not taken any medication today. States his throat feels swollen and congested. Review of Systems Constitutional: Positive for malaise/fatigue. Negative for chills and fever. HENT: Positive for congestion and sore throat. Negative for ear pain. Respiratory: Positive for cough. Cardiovascular: Negative. Gastrointestinal: Negative for abdominal pain, diarrhea, nausea and vomiting. Musculoskeletal: Negative for myalgias. Neurological: Negative for headaches. BP 145/76 Pulse 95 Temp 37.1 ?C (98.8 ?F) Resp 18 Wt 54.2 kg (119 lb 7.8 oz) SpO2 97% BMI 18.71 kg/m? PAST MEDICAL HISTORY Diagnosis Date Cerebral palsy (HCC) PAST SURGICAL HISTORY Procedure Laterality Date LEG SURGERY HX x4 S TENDON - ACHILLES Bilateral 01/30/2018 [facility] ALLERGIES Latex MEDICATIONS cyclobenzaprine (FLEXERIL) 10 mg tablet Take 10 mg by mouth three times a day as needed. FAMILY HISTORY Problem Relation Age of Onset None Father None Mother Cancer Maternal Grandmother throat Alzheimer's Disease Maternal Grandmother None Sister None Brother None Brother None Brother None Brother None Sister None Sister None Sister Social History Tobacco Use Smoking status: Never Smokeless tobacco: Never Substance Use Topics Alcohol use: No Drug use: No Objective Physical Exam Vitals and nursing note reviewed. Constitutional: General: He is not in acute distress. Appearance: Normal appearance. He is not ill-appearing. HENT: Right Ear: Tympanic membrane, ear canal and external ear normal. Left Ear: Tympanic membrane, ear canal and external ear normal. Nose: Congestion present. Mouth/Throat: Mouth: Mucous membranes are moist. Pharynx: Uvula midline. Posterior oropharyngeal erythema present. No oropharyngeal exudate. Cardiovascular: Rate and Rhythm: Normal rate and regular rhythm. Heart sounds: Normal heart sounds. Pulmonary: Effort: Pulmonary effort is normal. No respiratory distress. Breath sounds: Normal breath sounds. No wheezing or rales. Musculoskeletal: Cervical back: Neck supple. Lymphadenopathy: Cervical: No cervical adenopathy. Skin: General: Skin is warm and dry. Findings: No erythema or rash. Neurological: Mental Status: He is alert. ASSESSMENT/PLAN: 1. Strep throat - ICD9: 034.0, ICD10: J02.0 (primary diagnosis) - Amoxicillin for 10 days. - Discussed supportive care treatment with fluids, rest and analgesia. - The patient may also use warm salt water gargles, throat lozenges and/or OTC throat spray as needed. - Contagious dz precautions discussed- including considered contagious until on antibiotics for 24 hours - Call back if drooling, increased temperature, symptoms of dehydration and/or still sick in one week - AMOXICILLIN 500 MG CAPSULE 2. Viral URI with cough - ICD9: 465.9, ICD10: J06.9 - Discussed viral etiology and rationale for treatment. - Symptomatic treatment with prn analgesia - Supportive care with fluids and rest 3. Sore throat - ICD9: 462, ICD10: J02.9 - Group A strep molecular testing positive - STREP A MOLECULAR (POC) - Follow-up with your PCP in 3-5 days if symptoms have not improved or sooner if symptoms worsen - Discussed red flags and need for immediate medical evaluation if any occur. - Discussed supportive care treatment with fluids, rest and analgesia. - Discussed expected course of illness Bushra Olivares APRN.Bushra Zavaleta APRN.MYLA 10/23/2023 5:49 PM Signed ASSESSMENT/PLAN: 1. Strep throat - ICD9: 034.0, ICD10: J02.0 (primary diagnosis) - Amoxicillin for 10 days. - Discussed supportive care treatment with fluids, rest and analgesia. - The patient may also use warm salt water gargles, throat lozenges and/or OTC throat spray as needed. - Contagious dz precautions discussed- including considered contagious until on antibiotics for 24 hours - Call back if drooling, increased temperature, symptoms of dehydration and/or still sick in one week - AMOXICILLIN 500 MG CAPSULE 2. Viral URI with cough - ICD9: 465.9, ICD10: J06.9 - Discussed viral etiology and rationale for t (more content not included)... Normal [facility] STREP A MOLECULAR (POC)on Interpretation and review of laboratory results Abnormal [facility] Procedural Control Valid [facility] Strep A (POCT) Positive Abnormal Negative [facility] CNOVon 09-25-2023 CNOV Office Visit (UCWSTR) ---- AKBARJEZ M ([id number]) 2000 M Date Time Provider Department 09/25/23 3:30 PM ADAM CHANDLER [facility] During your visit today, we recorded the following information about you: Temperature Pulse Respiration Blood pressure 98 degrees 98/minute 20/minute 144/83 Weight 54 kg Adam Chandler, BREWERY TECHNICIAN.ASSISTANT TENNIS COACH 09/25/2023 3:47 PM Signed Subjective HPI Nontoxic male presents urgent care chief complaint fatigue muscle aches sore throat headache. Duration of symptoms 3 days. Associate symptoms listed above. Most prominent symptom today is sore throat. Sick contacts work similar signs symptoms no difficulty swallowing and secretions decreased range of motion of neck. Denies any fever body aches chills productive cough chest pain shortness of breath pleuritic pain hemoptysis nausea vomiting abdominal pain change in bowel or bladder habits. Past medical history prescription medication use and allergies reviewed. .Patient presents with: Fatigue: Muscle cramps, congested in throat, muscle cramps, headache x 3 days PAST MEDICAL HISTORY Diagnosis Date Cerebral palsy (HCC) PAST SURGICAL HISTORY Procedure Laterality Date LEG SURGERY HX x4 S TENDON - ACHILLES Bilateral 01/30/2018 [facility] ALLERGIES Latex MEDICATIONS cyclobenzaprine (FLEXERIL) 10 mg tablet Take 10 mg by mouth three times a day as needed. FAMILY HISTORY Problem Relation Age of Onset None Father None Mother Cancer Maternal Grandmother throat Alzheimer's Disease Maternal Grandmother None Sister None Brother None Brother None Brother None Brother None Sister None Sister None Sister Social History Tobacco Use Smoking status: Never Smokeless tobacco: Never Substance Use Topics Alcohol use: No Drug use: No BP 144/83 Pulse 98 Temp 36.7 ?C (98 ?F) Resp 20 Wt 54 kg (119 lb 0.8 oz) SpO2 99% BMI 18.65 kg/m? Review of Systems Constitutional: Positive for malaise/fatigue. Negative for chills and fever. HENT: Positive for sore throat. Negative for congestion, ear discharge, ear pain and sinus pain. Eyes: Negative for blurred vision, pain, discharge and redness. Respiratory: Negative for cough, hemoptysis, sputum production, shortness of breath, wheezing and stridor. Cardiovascular: Negative for chest pain. Gastrointestinal: Negative for abdominal pain, diarrhea, nausea and vomiting. Musculoskeletal: Positive for myalgias. Skin: Negative for itching and rash. Neurological: Positive for headaches. Negative for dizziness. Objective Physical Exam Constitutional: General: He is not in acute distress. Appearance: He is not diaphoretic. HENT: Head: Normocephalic. Jaw: No trismus, tenderness, swelling or pain on movement. Right Ear: Tympanic membrane, ear canal and external ear normal. Left Ear: Tympanic membrane, ear canal and external ear normal. Nose: Nose normal. Mouth/Throat: Mouth: Mucous membranes are moist. Pharynx: Oropharynx is clear. Uvula midline. Posterior oropharyngeal erythema present. No pharyngeal swelling, oropharyngeal exudate or uvula swelling. Tonsils: No tonsillar abscesses. Eyes: Conjunctiva/sclera: Conjunctivae normal. Pupils: Pupils are equal, round, and reactive to light. Cardiovascular: Rate and Rhythm: Normal rate and regular rhythm. Heart sounds: Normal heart sounds. Pulmonary: Effort: Pulmonary effort is normal. No tachypnea, accessory muscle usage or respiratory distress. Breath sounds: Normal breath sounds. No stridor. No wheezing, rhonchi or rales. Abdominal: General: There is no distension. Palpations: Abdomen is soft. Tenderness: There is no abdominal tenderness. There is no guarding or rebound. Musculoskeletal: Cervical back: Normal range of motion and neck supple. No edema, erythema, rigidity or tenderness. No pain with movement. Normal range of motion. Lymphadenopathy: Cervical: No cervical adenopathy. Skin: General: Skin is warm and dry. Neurological: Mental Status: He is alert and oriented to person, place, and time. ASSESSMENT/PLAN: 1. Pharyngitis, unspecified etiology - ICD9: 462, ICD10: J02.9 (primary diagnosis) 2. Strep throat - ICD9: 034.0, ICD10: J02.0 Strep test positive. Diagnosis strep pharyngitis. Placed on amoxicillin. Patient was educated on supportive therapies. Patient will follow up with primary care provider as needed. Patient was instructed to immediately proceed to emergency room for any new, worsening, or symptoms lasting longer than anticipated. The patient's clinical presentation is otherwise unremarkable at this time. Based on exam and clinical finding, the patient is stable for discharge. Plan of care was discussed with patient. Patient verbalizes understanding and agrees to plan of care. This note was generated using [employer]eter software. It may contain errors in w (more content not included)... Normal [facility] STREP A MOLECULAR (POC)on Procedural Control Valid [facility] Strep A (POCT) Positive Abnormal Negative [facility] Amorphous sediment detection in urine sediment by light microscopyOrdered By: Ashvin Durant on 07-07-2023 Amorphous sediment LM Ql (Urine sed) 2+ [facility] Basophil percentageOrdered B y: Ashvin Durant on 07-07-2023 Basophil percentage 0 SEEN /hpf 0-5 [facility] Bilirubin Test strip Ql (U)O rdered By: Ashvinantonietta Palominoo on 07-07-2023 Bilirubin Ql (U) Negative Negative [facility] Culture, urineOrdered By: Ug antonietta Durant on 07-07-2023 Bacteria identified Cx Nom (U) Culture exhibits no growth. [facility] Ketones Test strip Ql (U)Ord ered By: Ashvin Durant on 07-07-2023 Ketones Ql (U) 50 mg/dl Negative [facility] Mucus LM Ql (Urine sed)Order ed By: Ashvin Durant on 07-07-2023 Mucus Ql (Urine sed) 0 SEEN /hpf [facility] Nitrite Test strip Ql (U)Ord ered By: Ashvinantonietta Durant on 07-07-2023 Nitrite Ql (U) Negative Negative [facility] No Panel InformationOrdered By: Ashvin Durant on 07-07-2023 Urine RBC 0 SEEN /hpf 0-5 [facility] Protein Test strip Ql (U)Ord ered By: Ashvin Durant on 07-07-2023 Protein Ql (U) 15 mg/dl Negative [facility] Squamous epithelial cells de tection in urine sediment by light microscopyOrdered By: Ashvin Durant on 07-07-2023 Epithelial cells.squamous LM Ql (Urine sed) 0 SEEN /hpf 0-5 [facility] Urine blood detectionOrdered By: Ashvin Durant on 07-07-2023 RBC Ql (U) Negative Negative [facility] Urine clarityOrdered By: Ashvin Palominoo on 07-07-2023 Clarity (U) Cloudy Clear [facility] Urine color determinationOrd ered By: Ashvin Durant on 07-07-2023 Color (U) Yellow Yellow [facility] Urine glucose detectionOrder ed By: Ashvin Durant on 07-07-2023 Glucose Ql (U) Normal mg/dl Normal [facility] Urine leukocyte esterase det ection by dipstickOrdered By: Ashvin Durant on 07-07-2023 Leukocyte esterase Test strip Ql (U) Negative Negative [facility] Urine pHOrdered By: Ashvin li on 07-07-2023 pH (U) 7.0 [pH] 5.0 - 8.0 [facility] Urine sediment bacteria coun t by microscopy (number/high power field)Ordered By: Ashvin Durant on 07-07-2023 Bacteria LM.HPF (Urine sed) [#/Area] 1 /[HPF] None Seen [facility] Urine specific gravity measu rementOrdered By: Ashvin Durant on 07-07-2023 Specific gravity (U) [Rel density] 1.015 1.002-1.030 [facility] Urine urobilinogen measureme ntOrdered By: Ashvin Durant on 07-07-2023 Urobilinogen Ql (U) 1 mg/dl Normal [facility] Culture, urineOrdered By: Priyanka Durant on 07-06-2023 Bacteria identified Cx Nom (U) Culture exhibits no growth. [facility] No Panel Informationon 05-10 Radiology Study observation (narrative) [facility] Work Phone: XR SHOULDER RIGHT 2+ VIEWSon 05-10-2023 XR SHOULDER RIGHT 2+ VIEWS Interpreted By: Stephanie Emery, STUDY: XR SHOULDER RIGHT 2+ VIEWS; ; 05/10/2023 2:24 am INDICATION: Signs/Symptoms:fall . COMPARISON: None. ACCESSION NUMBER(S): [id number] ORDERING CLINICIAN: MARCY GALEAS FINDINGS: Three views right shoulder. No acute fracture or malalignment. Old right mid shaft clavicle fracture. The imaged lung is clear. IMPRESSION: No acute osseous abnormality. MACRO: None Signed by: Stephanie Emery 05/10/2023 2:55 AM Dictation workstation: [id number] [place] [address] XR Shoulder - right 2 Viewso n 05-10-2023 No acute osseous abnormality. MACRO: None Signed by: Stephanie Emery 05/10/2023 2:55 AM Dictation workstation: [id number] [facility]AL Interpreted By: Stephanie Emery, STUDY: XR SHOULDER RIGHT 2+ VIEWS; ; 05/10/2023 2:24 am INDICATION: Signs/Symptoms:fall . COMPARISON: None. ACCESSION NUMBER(S): [id number] ORDERING CLINICIAN: MARCY GALEAS FINDINGS: Three views right shoulder. No acute fracture or malalignment. Old right mid shaft clavicle fracture. The imaged lung is clear. [facility] MM[facility]AL Stephanie Emery MD - 05/10/2023 Interpreted By: Stephanie Emery, STUDY: XR SHOULDER RIGHT 2+ VIEWS; ; 05/10/2023 2:24 am INDICATION: Signs/Symptoms:fall . COMPARISON: None. ACCESSION NUMBER(S): [id number] ORDERING CLINICIAN: MARCY GALEAS FINDINGS: Three views right shoulder. No acute fracture or malalignment. Old right mid shaft clavicle fracture. The imaged lung is clear. IMPRESSION: No acute osseous abnormality. MACRO: None Signed by: Stephanie Emery 05/10/2023 2:55 AM Dictation workstation: [id number] Work Phone: XR Shoulder - right 2 ViewsO rdered By: Stephanie Emery on 05-10-2023 [facility] Work Phone: XR WRIST RIGHT 3+ VIEWSon XR WRIST RIGHT 3+ VIEWS Interpreted By: Stephanie Emery, STUDY: XR WRIST RIGHT 3+ VIEWS; ; 05/10/2023 2:24 am INDICATION: Signs/Symptoms:fall . COMPARISON: None. ACCESSION NUMBER(S): [id number] ORDERING CLINICIAN: MARCY GALEAS FINDINGS: Four views right wrist. No acute fracture or malalignment. Sclerotic densities in the distal ulna and scaphoid, most consistent with bone islands. Soft tissues are within normal limits. IMPRESSION: No acute osseous abnormality. MACRO: None Signed by: Stephanie Emery 05/10/2023 2:54 AM Dictation workstation: [id number] [facility] XR Wrist - right 3 Viewson 1 07-10-2022 No acute osseous abnormality. MACRO: None Signed by: Stephanie Emery 05/10/2023 2:54 AM Dictation workstation: [id number] MMODAL Interpreted By: Stephanie Emery, STUDY: XR WRIST RIGHT 3+ VIEWS; ; 05/10/2023 2:24 am INDICATION: Signs/Symptoms:fall . COMPARISON: None. ACCESSION NUMBER(S): [id number] ORDERING CLINICIAN: MARCY GALEAS FINDINGS: Four views right wrist. No acute fracture or malalignment. Sclerotic densities in the distal ulna and scaphoid, most consistent with bone islands. Soft tissues are within normal limits. [facility] Stephanie Emery MD - 05/10/2023 Interpreted By: Stephanie Emery, STUDY: XR WRIST RIGHT 3+ VIEWS; ; 05/10/2023 2:24 am INDICATION: Signs/Symptoms:fall . COMPARISON: None. ACCESSION NUMBER(S): [id number] ORDERING CLINICIAN: MARCY GALEAS FINDINGS: Four views right wrist. No acute fracture or malalignment. Sclerotic densities in the distal ulna and scaphoid, most consistent with bone islands. Soft tissues are within normal limits. IMPRESSION: No acute osseous abnormality. MACRO: None Signed by: Stephanie Emery 05/10/2023 2:54 AM Dictation workstation: [id number] [facility] Work Phone: [facility] Work Phone: CBC W Auto Differential pane l (Bld)Ordered By: Raquel Perdmoo on 11-13-2022 Basophils (Bld) [#/Vol] 0.0 10*3/uL 0.0 - 0.2 10*3/uL [facility] Basophils/100 WBC (Bld) 0.6 % 0.0 - 2.0 % [facility] Eosinophils (Bld) [#/Vol] 0.0 10*3/uL 0.0 - 0.5 10*3/uL [facility] Eosinophils/100 WBC (Bld) 0.6 % Low 1.0 - 6.0 % [facility] Erythrocyte distribution width (RBC) [Ratio] 12.3 % 11.5 - 14.5 % [facility] Hematocrit (Bld) [Volume fraction] 44.3 % 40.0 - 52.0 % [facility] Hemoglobin (Bld) [Mass/Vol] 14.6 g/dL 13.0 - 18.0 g/dL [facility] Immature granulocytes (Bld) [#/Vol] 0.0 10*3/uL NINF - 0.0 10*3/uL [facility] Immature granulocytes/100 WBC (Bld) 0.2 % High NINF - 0.0 % [facility] Interpretation and review of laboratory results Abnormal [facility] Lymphocytes (Bld) [#/Vol] 1.3 10*3/uL 1.0 - 4.3 10*3/uL [facility] Lymphocytes/100 WBC (Bld) 25.9 % 20.0 - 40.0 % [facility] MCH (RBC) [Entitic mass] 30.2 pg 26.0 - 34.0 pg [facility] MCHC (RBC) [Mass/Vol] 33.0 % 32.0 - 36.0 % [facility] MCV (RBC) [Entitic vol] 91.7 fL 80.0 - 98.0 fL [facility] Monocytes (Bld) [#/Vol] 0.3 10*3/uL 0.0 - 0.8 10*3/uL [facility] Monocytes/100 WBC (Bld) 6.8 % 2.0 - 10.0 % [facility] Neutrophils (Bld) [#/Vol] 3.2 10*3/uL 1.8 - 7.0 10*3/uL [facility] Neutrophils/100 WBC (Bld) 65.9 % 40.0 - 80.0 % [facility] Platelet mean volume (Bld) [Entitic vol] 11.3 fL 7.4 - 12.4 fL [facility] Comment on above: MPV is a calculated measurement using platelet volume ratio Platelets (Bld) [#/Vol] 181 10*3/uL 140 - 440 10*3/uL [facility] RBC (Bld) [#/Vol] 4.83 10*6/uL 4.40 - 5.9 0 10*6/uL [facility] WBC (Bld) [#/Vol] 4.8 10*3/uL 3.6 - 10.7 10*3/uL [facility] Comprehensive metabolic 2000 panelon 11-13-2022 Albumin [Mass/Vol] 4.5 g/dL 3.5 - 5.0 g/dL [facility] ALP [Catalytic activity/Vol] 70 U/L 38 - 126 U/L [facility] ALT [Catalytic activity/Vol] 13 U/L 0 - 49 U/L [facility] Anion gap [Moles/Vol] 4 mmol/L 3 - 13 mmol/L [facility] AST [Catalytic activity/Vol] 20 U/L 15 - 46 U/L [facility] Bilirubin [Mass/Vol] 0.4 mg/dL 0.2 - 1.3 mg/dL [facility] Calcium [Mass/Vol] 9.4 mg/dL 8.4 - 10. 4 mg/dL [facility] Chloride [Moles/Vol] 106 mmol/L 98 - 107 mmol/L [facility] CO2 [Moles/Vol] 29 mmol/L 22 - 30 mmol/L [facility] Creatinine [Mass/Vol] 0.72 mg/dL 0.66 - 1.25 mg/dL [facility] GFR/1.73 sq M.predicted MDRD (S/P/Bld) [Vol rate/Area] - PINF [facility] Comment on above: Calculation based on the Chronic Kidney Disease Epidemiology Collaboration (CKD-EPI) equation refit without adjustment for race Glucose [Mass/Vol] 103 mg/dL High 70 - 100 mg/dL [facility] Interpretation and review of laboratory results Abnormal [facility] Potassium [Moles/Vol] 4.0 mmol/L 3.5 - 5.1 mmol/L [facility] Protein [Mass/Vol] 7.5 g/dL 6.3 - 8.2 g/dL [facility] Sodium [Moles/Vol] 139 mmol/L 135 - 145 mmol/L [facility] Urea nitrogen [Mass/Vol] 16 mg/dL 9 - 20 mg/dL [facility] ED Nursing Noteon 11-13-2022 ED Nursing Note Patient discharged in no noted distress with script to his pharmacy and PCP follow up. Lenka Kumar RN 11/13/22 1335 Normal [facility] ED Provider Noteon ED Provider Note EMERGENCY DEPARTMENT ENCOUNTER Pt Name: Jez [...] 1051] Temp Heart Rate Resp BP 36.3 ?C (97.4 ?F) 68 16 (!) 145/78 SpO2 Temp Source [...] Negative Protein, Urine Negative Glucose, Urine Normal Bilirubin (more content not included)... Normal [facility] Laboratory - Chemistry and C hemistry - challengeon 11-13-2022 Lipase [Catalytic activity/Vol] 85 U/L 23 - 300 U/L [facility] Lipase [Catalytic activity/V ol]on 11-13-2022 Interpretation and review of laboratory results Normal [facility] No Panel Informationon 11-13 [facility] Urinalysis complete panel (U )on 11-13-2022 Bilirubin Ql (U) Negative Negative mg/dL [facility] Clarity (U) Clear Clear [facility] Color (U) Light Yellow Lt. Yellow [facility] Glucose Ql (U) Normal Normal (<70) mg/dL [facility] Hemoglobin Ql (U) Negative Negative mg/dL [facility] Interpretation and review of laboratory results Abnormal [facility] Ketones (U) [Mass/Vol] Negative Negative mg/d L [facility] Leukocyte esterase Test strip Ql (U) Negative Negative Kyle/uL [facility] Nitrite Ql (U) Negative Negative [facility] th pH (U) 6.5 [pH] 5.0 - 8.0 pH [facility] Protein (U) [Mass/Vol] Negative Negative mg/d L [facility] Specific gravity (U) [Rel density] 1.023 1.005 - 1.030 [facility] Urobilinogen (U) [Mass/Vol] 2 mg/dL Abnormal Normal (0-1) [facility] [employer] Volume, Urine 12 mL [facility] Absolute lymphocyte counton 01-31-2022 Lymphocytes Auto (Unsp spec) [#/Vol] 1.81 10*3/uL 0.83-4.51 [facility] Work Phone: [phone] Basophil percentageon 2021 Basophil percentage 10-25 SEEN /hpf 0-5 [facility] Work Phone: [phone] Basophils/100 WBC (Bld) 0.6 % 0-1 [facility] Work Phone: Bilirubin [Mass/Vol] 0.70 mg/dL 0.20-1.00 [facility] Work Phone: Comment on above: For patients on eltr ombopag therapy, use of [employer]ension [place] TBIL is not recommended. Chloride [Moles/Vol] 104 mmol/L 98-107 [facility] Work Phone: Eosinophils/100 WBC (Bld) 0.0 % 0-5 [facility] Work Phone: Glucose [Mass/Vol] 101 mg/dL 74-106 [facility] Work Phone: Comment on above: Fasting Glucose resu lt from 100 to 125 mg/dL suggests IMPAIRED HOMEOSTASIS per A.D.A. criteria. Neutrophils (Bld) [#/Vol] 2.6 10*3/uL 2.0-7.7 [facility] Work Phone: Neutrophils/100 WBC (Bld) 54.5 % 47-70 [facility] Work Phone: Potassium [Moles/Vol] 3.7 mmol/L 3.5-5.1 [facility] Work Phone: [phone] Protein [Mass/Vol] 7.3 g/dL 6.4-8.2 [facility] Work Phone: Sodium [Moles/Vol] 140 mmol/L 136-145 [facility] Work Phone: WBC (Bld) [#/Vol] 4.7 10*3/uL 4.4-11.0 [facility] Work Phone: Bilirubin Test strip Ql (U)o n 01-31-2022 Bilirubin Ql (U) Negative Negative [facility] Work Phone: Blood erythrocytes count (nu mber/volume)on 01-31-2022 RBC (Bld) [#/Vol] 4.78 10*6/uL 4.6-6.2 [facility] Work Phone: Blood hemoglobin measurement (mass/volume)on 01-31-2022 Hemoglobin (Bld) [Mass/Vol] 14.7 g/dL 13.0-16.5 [facility] Work Phone: Blood lymphocytes/100 leukoc yteson 01-31-2022 Lymphocytes/100 WBC (Bld) 38.5 % 19-41 [facility] Work Phone: Blood monocytes/100 leukocyt eson 01-31-2022 Monocytes/100 WBC (Bld) 6.2 % 0-10 [facility] Work Phone: Blood platelet mean volumeon 01-31-2022 Platelet mean volume (Bld) [Entitic vol] 11.5 fL 6.2-12.0 [facility] Work Phone: Determination of erythrocyte mean corpuscular volume (MCV)on 01-31-2022 MCV (RBC) [Entitic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 and delayed contrast timing. There is probable artifact within the left main bronchus on image 35 series 2. Esophagus: Unremarkable. ABDOMEN/PELVIS: Liver/Gallbladder: No evidence for traumatic injury. The portal veins are contrast opacified. There is no convincing CT evidence for significant bile duct obstruction. No CT evidence for acute cholecystitis. Spleen: No evidence for laceration or contusion. Stomach: Partially distended and suboptimally evaluated. Pancreas: No focal ductal dilation. Adrenal glands: Unremarkable bilaterally. Kidneys/ureters: Contrast noted within the bilateral urinary collecting systems.No hydronephrosis, hydroureter, or ureteral calculus. Urinary bladder: Partially decompressed and suboptimally evaluated. Reproductive organs: Normal-sized prostate. Bowel/appendix: The rectum is decompressed and suboptimally evaluated. The decompressed portions of the large bowel loops are suboptimally evaluated on this exam. The descending colon is mildly thickened on image 110 series 2. The appendix is not visualized. There is no evidence for small bowel obstruction. Short segment of the transverse colon also appears mildly thickened on image 104 series 2. Peritoneum: Suboptimally evaluated due to diffuse paucity of the peritoneal fat. Within constraints of this exam, there is no evidence for large mesenteric hematoma. There is no evidence for pneumoperitoneum. Vasculature: No evidence of aneurysm or dissection. Lymph nodes: No pathologically enlarged lymph nodes per CT size and morphological criteria. Soft tissue: Unremarkable. Bone: Intramedullary adam and screw fixation of the left proximal femur partially imaged. Overlying soft tissue stranding noted which may represent scar from prior procedure. Healed right mid clavicular fracture is visualized. No acute osseous injury is visualized. [facility], Rad In [employer] - 10/07/2018 12:02 AM EDT EXAMINATION: CT CHEST ABDOMEN PELVIS WITH IV CONTRAST ONLY HISTORY: Trauma COMPARISON: No relevant prior study available at time of interpretation. TECHNIQUE: Axial images through the chest, abdomen, and pelvis were obtained after administration of 75 mL of Isovue 370 intravenous contrast. Multiplanar 2-D reconstructed images were obtained and reviewed. Dose reduction techniques were achieved by using automated exposure control and/or adjustment of mA and/or kV according to patient size and/or use of iterative reconstruction technique. FINDINGS: CHEST: Lung: There is no focal airspace consolidation, pneumothorax, or pleural effusion. No significant peribronchial wall thickening is seen. Visualized thyroid gland: No suspicious mass. Lymph nodes: No pathologically enlarged lymphadenopathy. Heart: The heart size is normal. No significant pericardial abnormality is visualized. Thoracic aorta: Left-sided thoracic aorta is visualized which is normal in caliber without evidence of dissection. Pulmonary artery: The main pulmonary artery is normal in caliber. Please note intraluminal filling defect is suboptimally evaluated due to breathing motion artifact and delayed contrast timing. There is probable artifact within the left main bronchus on image 35 series 2. Esophagus: Unremarkable. ABDOMEN/PELVIS: Liver/Gallbladder: No evidence for traumatic injury. The portal veins are contrast opacified. There is no convincing CT evidence for significant bile duct obstruction. No CT evidence for acute cholecystitis. Spleen: No evidence for laceration or contusion. Stomach: Partially distended and suboptimally evaluated. Pancreas: No focal ductal dilation. Adrenal glands: Unremarkable bilaterally. Kidneys/ureters: Contrast noted within the bilateral urinary collecting systems.No hydronephrosis, hydroureter, or ureteral calculus. Urinary bladder: Partially decompressed and suboptimally evaluated. Reproductive organs: Normal-sized prostate. Bowel/appendix: The rectum is decompressed and suboptimally evaluated. The decompressed portions of the large bowel loops are suboptimally evaluated on this exam. The descending colon is mildly thickened on image 110 series 2. The appendix is not visualized. There is no evidence for small bowel obstruction. Short segment of the transverse colon also appears mildly thickened on image 104 series 2. Peritoneum: Suboptimally evaluated due to diffuse paucity of the peritoneal fat. Within constraints of this exam, there is no evidence for large mesenteric hematoma. There is no evidence for pneumoperitoneum. Vasculature: No evidence of aneurysm or dissection. Lymph nodes: No pathologically enlarged lymph nodes per CT size and morphological criteria. Soft tissue: Unremarkable. Bone: Intramedullary adam and screw fixation of the left proximal femur partially imaged. Overlying soft tissue stranding noted which may represent scar from prior procedure. Healed right mid clavicular fracture is visualized. No acute osseous injury is visualized. IMPRESSION: Focally thickened appearance of the descending colon [...] dedicated PE protocol study for further evaluation. /[facility] Workstation ID: [id number] [facility] Chem [id number] Anion gap molar conc 9 mmol/L Low 10 - 20 mmol/L [facility] Chloride molar conc 106 mmol/L 98 - 108 mmol/L [facility] Creatinine mass conc 0.91 mg/dL 0.5 - 1.3 mg/dL [facility] GFR/1.73 sq M predicted among non-blacks MDRD vol rate/area (S/P/Bld) The eGFR should be used for monitoring renal function only and not for medication dosing. [facility] GFR/1.73 sq M.predicted CKD-EPI vol rate/area (S/P/Bld) 140 >=60 mL/min/1.73 m2 [facility] GFR/1.73 sq M.predicted CKD-EPI vol rate/area (S/P/Bld) 121 >=60 mL/min/1.73 m2 [facility] Glucose mass conc 110 mg/dL High 65 - 99 mg/dL [facility] HCO3 molar conc 29 mmol/L 21 - 32 mmol/L [facility] Interpretation and review of laboratory results Abnormal [facility] Potassium molar conc 3.2 mmol/L Low 3.5 - 5 .1 mmol/L [facility] Sodium molar conc 141 mmol/L 135 - 145 mmol/L [facility] Urea nitrogen mass conc 16 mg/dL 8 - 25 mg/dL [facility] Urea nitrogen/Creatinine mass ratio 17.6 mg/mg [facility] DRUGS OF ABUSE SCREEN, URINE on 10-06-2018 Amphetamines Ql (U) None Detected None Detected [facility] Comment on above: Urine Amphetamine Cutoff: < 1000 ng/mL = None Detected Barbiturates Screen Ql (U) None Detected None Detected [facility] Comment on above: Urine Barbiturates Cutoff: < 200 ng/mL = None Detected Benzodiazepines Ql (U) None Detected None Detec geovanna [facility] Comment on above: Urine Benzodiazepine Cutoff: < 200 ng/mL = None Detected Cannabinoids Screen Ql (U) None Detected None Detected [facility] Comment on above: Urine Cannabinoids Cutoff: < 50 ng/mL = None Detected Cocaine Ql (U) None Detected None Detected [facility] Comment on above: Urine Cocaine Cutoff: < 300 ng/mL = None Detected Interpretation and review of laboratory results Normal [facility] Methadone Screen Ql (U) None Detected None Detected [facility] Comment on above: Urine Methadone Cutoff: < 300 ng/mL = None Detected Opiates Screen Ql (U) None Detected None Detect ed [facility] Comment on above: Urine Opiates Cutoff: < 300 ng/mL = None Detected Oxycodone Ql (U) None Detected None Detected [facility] Comment on above: Urine Oxycodone Cutoff: < 100 ng/mL = None Detected Screen results should be used for treatment purposes only. [facility] ECG 12-LEADon 10-06-2018 Kevin Skelton MD 10/07/2018 1:05 AM EKG 12-lead Date/Time: 10/06/2018 10:32 PM Performed by: Kevin Skelton MD Authorized by: Kevin Skelton MD Interpreted by ED attending physician Rhythm: sinus rhythm BPM: 99 QRS axis: left Clinical impression comment: Sinus rhythm with left axis deviation [facility] Otheron 10-06-2018 Extra Tube Hold for add-ons. [facility] Comment on above: Auto resulted. PT/INRon 10-06-2018 INR Coag RelTime (PPP) 1.1 {INR} [facility] Interpretation and review of laboratory results Normal [facility] Prothrombin time (PT) Coag time (PPP) 13.6 s [facility] During the induction phase of oral anticoagulation, the INR may not reflect the anticoagulation status of the patient. Therapeutic ranges for INR's are: Most clinical situations: INR 2.0-3.0 Mechanical Prosthetic Valve: INR 2.5-3.5 Critical: INR >5.0 [facility] Type and Screenon 10-06-2018 ABO and Rh group Nom (Bld) B Positive [facility] Blood group antibody screen Ql Negative [facility] Specimen Expires 10/09/2018 23:59 EST [facility] URINALYSISon 10-06-2018 Bacteria Auto Ql (U) None Seen None Seen /hpf [facility] Bilirubin Ql (U) Negative Negative [facility] th Clarity Refractometry automated Nom (U) Hazy Abnormal Clear [facility] Color Nom (U) Yellow Colorless, Yellow [facility] Glucose Automated test strip mass conc (U) 50 Abnormal Negative mg/dL [facility] Hemoglobin Automated test strip Ql (U) Negative Negative [facility] Interpretation and review of laboratory results Abnormal [facility] Ketones mass conc (U) Negative Negative mg/dL [facility] Leukocyte esterase Automated test strip Ql (U) Negative Negative [facility] Mucus Auto #/area (Urine sed) Rare None Seen, Rare /lpf [facility] Nitrite Automated test strip Ql (U) Negative Negative [facility] pH (U) 5.0 [pH] [facility] Protein mass conc (U) Negative Negative mg/dL [facility] RBC Auto #/area (Urine sed) 3 [facility] Specific gravity Relative Density (U) 1.025 [facility] Urobilinogen mass conc (U) <2.0 <2.0 mg/dL [facility] WBC Auto #/area (Urine sed) 1 [facility] Microscopic examination is performed on all urinalysis samples and only positive findings are reported. The test for blood on the chemical analytic portion of urinalysis may also be positive due to hemoglobinuria and myoglobinuria and if red blood cells are present they are quantified by microscopic examination. [facility] XR Chest 1 Viewon 10-06-2018 Interface, Rad In Fuji Speechq - 10/06/2018 11:54 PM EDT EXAMINATION: XR CHEST PA/AP HISTORY: Trauma TECHNIQUE: XR CHEST PA/AP COMPARISON: No relevant prior study is available at the time of this interpretation. FINDINGS: There is no visible pneumothorax, large pleural effusion, or focal airspace consolidation. The cardiomediastinal silhouette is unremarkable. No displaced fracture is visualized. There is probable remote posttraumatic deformity at the right mid clavicle. Overlying hardware obscures the underlying structures. IMPRESSION: No acute pulmonary abnormality. [facility] Workstation ID: [id number] [facility] No acute pulmonary abnormality. [facility] Workstation ID: [id number] [facility] EXAMINATION: XR CHEST PA/AP HISTORY: Trauma TECHNIQUE: XR CHEST PA/AP COMPARISON: No relevant prior study is available at the time of this interpretation. FINDINGS: There is no visible pneumothorax, large pleural effusion, or focal airspace consolidation. The cardiomediastinal silhouette is unremarkable. No displaced fracture is visualized. There is probable remote posttraumatic deformity at the right mid clavicle. Overlying hardware obscures the underlying structures. [facility] XR HAND RIGHT MIN 3 VIEW (RO UTINE)on 06-24-2018 XR HAND RIGHT MIN 3 VIEW (ROUTINE) EXAMINATION: 3 XRAY VIEWS OF THE RIGHT HAND 06/23/2018 11:15 pm COMPARISON: None. HISTORY: laceration, r/o foriegn body Laceration to medial right hand with a box toe cementer FINDINGS: Normal bone density. No acute fracture dislocation noted in the right hand. A soft tissue defect is noted overlying the 5th metacarpal head, without any foreign body. IMPRESSION: Soft tissue injury without foreign body. No bony injury Normal [facility] BLOOD CULTUREon 05-15-2018 Bacteria identified Cx Nom (Bld) : No Growth after 5 days. Normal [facility] Comment on above: Performed By: #### B LOOD ####Main Lab - [id number] [place], [place] [address] Bacteria identified Cx Nom (Bld) @ CARLOS DATE was changed from 05/09/18 to 05/10/18 @ by [id number]. : No Growth after 5 days. Normal [facility] Comment on above: Performed By: #### B LOOD ####Main Lab - [id number] [place], [place] [address] STREP A SCREENon 05-12-2018 STREP A SCREEN @ CARLOS DATE was changed from 05/09/18 to 05/10/18 @ by [id number]. STREP A SCREEN: NEG:X/NEG/24/48 NO GROUP A BETA HEMOLYTIC STREP ISOLATED @ 48 HOURS Normal [facility] Comment on above: Performed By: #### D D, STR ####Main Lab - [id number] [place], [place] [address] CBC WITH AUTO DIFFon --2 018 Basophils Auto #/vol (Bld) 0.1 10 3/uL Normal 0.0-0.2 [facility] Comment on above: Order Comment: @ COL L DATE was changed from 05/09/18 to 05/10/18@ by [id number]. Old specimen was 1129:[id number]. Performed By: #### C MP, CBC ####Main Lab - [id number] [place], [place] [address] Basophils/100 WBC Auto (Bld) 1.0 % Normal 0.0-1.0 [facility] Comment on above: Order Comment: @ COL L DATE was changed from 05/09/18 to 05/10/18@ by [id number]. Old specimen was 1129:[id number]. Performed By: #### C MP, CBC ####Main Lab - [id number] [place], [place] [address] Eosinophils Auto #/vol (Bld) 0.2 10 3/uL Normal 0.0-0.7 [facility] Comment on above: Order Comment: @ COL L DATE was changed from 05/09/18 to 05/10/18@ by [id number]. Old specimen was 1129:[id number]. Performed By: #### C MP, CBC ####Main Lab - [id number] [place], [place] [address] Eosinophils/100 WBC Auto (Bld) 2.2 % Normal 0.0-5.0 [facility] Comment on above: Order Comment: @ COL L DATE was changed from 05/09/18 to 05/10/18@ by [id number]. Old specimen was 1129:[id number]. Performed By: #### C MP, CBC ####Main Lab - [id number] [place], [place] [address] Erythrocyte distribution width Auto Ratio (RBC) 13.0 % Normal 11.5-14.0 [facility] Comment on above: Order Comment: @ COL L DATE was changed from 05/09/18 to 05/10/18@ by [id number]. Old specimen was 1129:[id number]. Performed By: #### C MP, CBC ####Main Lab - [id number] [place], [place] [address] Hematocrit Auto Volume Fraction (Bld) 44.9 % Normal 38.7-49.8 [facility] Comment on above: Order Comment: @ COL L DATE was changed from 05/09/18 to 05/10/18@ by [id number]. Old specimen was 1129:[id number]. Performed By: #### C MP, CBC ####Main Lab - [id number] [place], [place] [address] Hemoglobin mass conc (Bld) 15.5 g/dL Normal 12.9-16.6 [facility] Comment on above: Order Comment: @ COL L DATE was changed from 05/09/18 to 05/10/18@ by 12. Old specimen was [id number]. Performed By: #### C MP, CBC ####Main Lab - [id number] [place], [place] [address] Lymphocytes Auto #/vol (Bld) 2.7 10 3/uL Normal 1.0-3.5 [facility] Comment on above: Order Comment: @ COL L DATE was changed from 05/09/18 to 05/10/18@ by 12. Old specimen was 1129:[id number]. Performed By: #### C MP, CBC ####Main [facility] - [id number] [place], [place] [address] Lymphocytes/100 WBC Auto (Bld) 30.6 % Normal 24.0-44.0 [facility] Comment on above: Order Comment: @ COL L DATE was changed from 05/09/18 to 05/10/18@ by [id number]. Old specimen was 1129:[id number]. Performed By: #### C MP, CBC ####Main Lab - [id number] [place], [place] [address] MCH Auto Entitic mass (RBC) 30.6 pg Normal 27.0-31.0 [facility] Comment on above: Order Comment: @ COL L DATE was changed from 05/09/18 to 05/10/18@ by 68. Old specimen was 1129:[id number]. Performed By: #### C MP, CBC ####Main Lab - [id number] [place], [place] [address] MCHC Auto mass conc (RBC) 34.5 g/dL Normal 32.0-36.0 [facility] Comment on above: Order Comment: @ COL L DATE was changed from 05/09/18 to 05/10/18@ by [id number]. Old specimen was 1129:[id number]. Performed By: #### C MP, CBC ####Main Lab - [id number] [place], [place] [address] MCV Auto Entitic volume (RBC) 88.7 fL Normal 78.0-100.0 [facility] Comment on above: Order Comment: @ COL L DATE was changed from 05/09/18 to 05/10/18@ by [id number]. Old specimen was 1129:[id number]. Performed By: #### C MP, CBC ####[facility] - [id number] [place], [place] [address] Monocytes Auto #/vol (Bld) 0.6 10 3/uL Normal 0.2-0.8 [facility] Comment on above: Order Comment: @ COL L DATE was changed from 05/09/18 to 05/10/18@ by [id number]. Old specimen was 1129:[id number]. Performed By: #### C MP, CBC ####[facility] [place], [place] [address] Monocytes/100 WBC Auto (Bld) 7.0 % Normal 1.7-9.3 [facility] Comment on above: Order Comment: @ COL L DATE was changed from 05/09/18 to 05/10/18@ by [id number]. Old specimen was 1129:[id number]. Performed By: #### C MP, CBC ####[facility] - [id number] [place], [place] [address] NEUTROPHILS, ABSOLUTE (AUTO) 5.2 10 3/uL Normal 1.5-6.7 [facility] Comment on above: Order Comment: @ COL L DATE was changed from 05/09/18 to 05/10/18@ by [id number]. Old specimen was 1129:[id number]. Performed By: #### C MP, CBC ####Main Lab - [id number] [place], [place] [address] Platelet mean volume Auto Entitic volume (Bld) 9.8 fL High 6.0-9.5 [facility] Comment on above: Order Comment: @ COL L DATE was changed from 05/09/18 to 05/10/18@ by [id number]. Old specimen was 1129:[id number]. Performed By: #### C MP, CBC ####Main Lab - [id number] [place], [place] [address] Platelets Auto #/vol (Bld) 260 10 3/uL Normal 150-450 [facility] Comment on above: Order Comment: @ COL L DATE was changed from 05/09/18 to 05/10/18@ by [id number]. Old specimen was 1129:[id number]. Performed By: #### C MP, CBC ####[facility] - [id number] [place], [place] [address] RBC Auto #/vol (Bld) 5.06 x10 6/uL Normal 4.38-5.71 [facility] Comment on above: Order Comment: @ COL L DATE was changed from 05/09/18 to 05/10/18@ by [id number]. Old specimen was 1129:[id number]. Performed By: #### C MP, CBC ####[id number] [place], [place] [address] Segmented neutrophils/100 WBC Manual cnt (Bld) 59.2 % Normal 36.0-66.0 [facility] Comment on above: Order Comment: @ COL L DATE was changed from 05/09/18 to 05/10/18@ by [id number]. Old specimen was 1129:[id number]. Performed By: #### C MP, CBC ####Main Lab - [id number] [place], [place] [address] WBC Auto #/vol (Bld) 8.7 10 3/uL Normal 4.0-10.5 [facility] Comment on above: Order Comment: @ COL L DATE was changed from 05/09/18 to 05/10/18@ by [id number]. Old specimen was 1129:[id number]. Performed By: #### C MP, CBC ####Main Lab - [id number] [place], [place] [address] COMPREHENSIVE METABOLIC PANE Cade 05-10-2018 Albumin mass conc 4.6 g/dL Normal 3.9-5.0 [facility] Comment on above: Order Comment: @ COL L DATE was changed from 05/09/18 to 05/10/18@ by [id number]. Old specimen was 1129:[id number]. Performed By: #### C MP, CBC ####Main Lab - [id number] [place] [id number] Albumin/Globulin mass ratio 1.3 {ratio} Normal 1.1-1.8 [facility] Comment on above: Order Comment: @ COL L DATE was changed from 05/09/18 to 05/10/18@ by [id number]. Old specimen was 1129:[id number]. Performed By: #### C MP, CBC ####Main Lab - [id number] [place], [place] [address] ALP enzyme act/vol 91 U/L Normal 43-122 [facility] Comment on above: Order Comment: @ COL L DATE was changed from 05/09/18 to 05/10/18@ by [id number]. Old specimen was 1129:[id number]. Performed By: #### C MP, CBC ####Main Lab - [id number] [place], [place] [address] ALT/SGPT 20 U/L Normal 7-56 [facility] Comment on above: Order Comment: @ COL L DATE was changed from 05/09/18 to 05/10/18@ by [id number]. Old specimen was 1129:[id number]. Performed By: #### C MP, CBC ####Main Lab - [id number] [place], [place] [address] Anion gap 3 molar conc 17 mmol/L Normal 9-18 [facility] Comment on above: Order Comment: @ COL L DATE was changed from 05/09/18 to 05/10/18@ by [id number]. Old specimen was 1129:[id number]. Performed By: #### C MP, CBC ####Main Lab - [id number] [place], [place] [address] AST/SGOT 24 U/L Normal 14-50 [facility] Comment on above: Order Comment: @ COL L DATE was changed from 05/09/18 to 05/10/18@ by [id number]. Old specimen was 1129:[id number]. Result Comment: Spec imen Slightly Hemolyzed. Performed By: #### C MP, CBC ####Main Lab - [id number] [place], [place] [address] Bilirubin mass conc 0.4 mg/dL Normal 0.2-1.3 [facility] Comment on above: Order Comment: @ COL L DATE was changed from 05/09/18 to 05/10/18@ by [id number]. Old specimen was 1129:[id number]. Performed By: #### C MP, CBC ####Main Lab - [id number] [place], [place] [address] Calcium mass conc 9.6 mg/dL Normal 8.4-10.2 [facility] Comment on above: Order Comment: @ COL L DATE was changed from 05/09/18 to 05/10/18@ by [id number]. Old specimen was 1129:[id number]. Performed By: #### C MP, CBC ####Main Lab - [id number] [place], [place] [address] Chloride molar conc 100 mmol/L Normal 98-107 [facility] Comment on above: Order Comment: @ COL L DATE was changed from 05/09/18 to 05/10/18@ by [id number]. Old specimen was 1129:[id number]. Performed By: #### C MP, CBC ####Main Lab - [id number] [place], [place] [address] CO2 molar conc 26 mmol/L Normal 22-31 [facility] Comment on above: Order Comment: @ COL L DATE was changed from 05/09/18 to 05/10/18@ by [id number]. Old specimen was 1129:[id number]. Performed By: #### C MP, CBC ####Main Lab - [id number] [place], [place] [address] Creatinine mass conc 0.69 mg/dL Low 0.80-1.30 [facility] Comment on above: Order Comment: @ COL L DATE was changed from 05/09/18 to 05/10/18@ by [id number]. Old specimen was 1129:[id number]. Performed By: #### C MP, CBC ####Main Lab - [id number] [place], [place] [address] ESTIMATED CREAT CLEARANCE 132.74 Normal [facility] Comment on above: Order Comment: @ COL L DATE was changed from 05/09/18 to 05/10/18@ by [id number]. Old specimen was 1129:[id number]. Result Comment: COCK CROFT-GAULT FORMULA 1973 Performed By: #### C ESSENCE, CBC ####Main Lab - [id number] [place], [place] [address] GFR/1.73 sq M predicted among non-blacks MDRD vol rate/area (S/P/Bld) mL/min/{1.73_m2} Normal [facility] Comment on above: Order Comment: @ COL L DATE was changed from 05/09/18 to 05/10/18@ by [id number]. Old specimen was 1129:[id number]. Performed By: #### C ESSENCE, CBC ####Main Lab - [id number] [place], [place] [address] Globulin Calculated mass conc (S) 3.5 g/dL Normal [facility] Comment on above: Order Comment: @ COL L DATE was changed from 05/09/18 to 05/10/18@ by [id number]. Old specimen was 1129:[id number]. Performed By: #### C ESSENCE, CBC ####Main Lab - [id number] [place], [place] [address] Glucose mass conc 121 mg/dL High 70-99 [facility] Comment on above: Order Comment: @ COL L DATE was changed from 05/09/18 to 05/10/18@ by [id number]. Old specimen was 1129:[id number]. Result Comment: The glucose range is based on recommendations from theAmerican Diabetes Association for fasting blood glucoserange. Performed By: #### C MP, CBC ####Main Lab - [id number] [place], [place] [address] Potassium molar conc 3.7 mmol/L Normal 3.6-5.0 [facility] Comment on above: Order Comment: @ COL L DATE was changed from 05/09/18 to 05/10/18@ by [id number]. Old specimen was 1129:[id number]. Result Comment: Spec imen Slightly Hemolyzed. Performed By: #### C MP, CBC ####Main Lab - [id number] [place], [place] [address] Protein mass conc 8.1 g/dL Normal 6.3-8.2 [facility] Comment on above: Order Comment: @ COL L DATE was changed from 05/09/18 to 05/10/18@ by [id number]. Old specimen was 1129:[id number]. Performed By: #### C MP, CBC ####Main Lab - [id number] [place], [place] [address] Sodium molar conc 139 mmol/L Normal 137-145 [facility] Comment on above: Order Comment: @ COL L DATE was changed from 05/09/18 to 05/10/18@ by [id number]. Old specimen was 1129:[id number]. Performed By: #### C MP, CBC ####Main Lab - [id number] [place], [place] [address] Urea nitrogen mass conc (Bld) 16 mg/dL Normal 7-21 [facility] Comment on above: Order Comment: @ COL L DATE was changed from 05/09/18 to 05/10/18@ by [id number]. Old specimen was 1129:[id number]. Performed By: #### C MP, CBC ####Main Lab - [id number] [place], [place] [address] Urea nitrogen/Creatinine mass ratio 23.2 Ratio Normal 5.0-42.0 [facility] Comment on above: Order Comment: @ COL L DATE was changed from 05/09/18 to 05/10/18@ by [id number]. Old specimen was 1129:[id number]. Performed By: #### C MP, CBC ####Main Lab - [id number] [place], [place] [address] Age Reported 17 Years Normal [facility] Comment on above: Order Comment: @ COL L DATE was changed from 05/09/18 to 05/10/18@ by [id number]. Old specimen was 1129:[id number]. Performed By: #### C MP, CBC ####Main Lab - [id number] [place], [place] [address] D-DIMERon 05-10-2018 D-DIMER < 0.27 Normal 0.00-0.50 [facility] Comment on above: Order Comment: @ COL L DATE was changed from 05/09/18 to 05/10/18@ by [id number]. Old specimen was 1129:[id number]. Result Comment: The D-Dimer assay can be used to assist in the diagnosis ofvenous thromboembolism. For the assay in use at [facility]), a D-Dimer cutoff of <0.50 ug/mL FEU has anegative predictive value of 99% for all patients suspectedof venous thromboembolism. Performed By: #### D D, STR ####Main Lab - [id number] [place], [place] [address] LACTATEon 05-10-2018 Lactate molar conc 2.1 mmol/L Normal 0.7-2.4 [facility] Comment on above: Order Comment: @ COL L DATE was changed from 05/09/18 to 05/10/18@ by [id number]. Old specimen was 1129:[id number]. Performed By: #### L ACTATE 1 ####Main Lab - [id number] [place], [place] [address] XR CHEST, PA/LATERALon 05-10 XR CHEST, PA/LATERAL [facility] [address] [place] [address] Diagnostic Imaging Report : [id number] Signed Name: JEZ HAIDER MRUN: [id number] : 2000 Loc: ED Age / Sex: 17 / M ADM Status: DEP ER ADM Date: 05/09/18 Room/Bed: Ordering Physician: Tawana Isaac PA-C Procedure: XR CHEST, PA/LATERAL Order Number(s): [id number] Ordered Date: 05/10/18 Ordered Time: 0000 EXAMINATION: TWO VIEWS OF THE CHEST 05/10/2018 12:36 am COMPARISON: None. HISTORY: chest wall pain FINDINGS: The heart size and pulmonary vasculature are within normal limits. No acute pulmonary infiltrate, pleural effusion or pneumothorax is identified. Old fracture right clavicle. Mild spinal curvature IMPRESSION: No acute cardiopulmonary process. Dictated By: Jayden Ohara DO Dictated Date/Time: 05/10/18100 Signed By: Jayden Ohara DO Signed Date/Time: 05/10/18106 Transcribed Date/Time: 05/10/18102 Normal [facility] Office Visit: Post Op Append ectomyon 04-02-2017 Documentation of current medications (procedure) T Invalid Interpretation Code [facility] [address] [address] Work Phone: Documentation of current medications (procedure) Done Invalid Interpretation Code [facility] [address] [employer] [address] Work Phone: Fall risk assessment No Invalid Interpretation Code [facility] [address] Work Phone: Protein mass conc T Invalid Interpretation Code [facility] [address] [facility] [address] Work Phone: Protein mass conc Done Invalid Interpretation Code [facility] [employer] [address] Work Phone: Tobacco smoking status NHIS Never Invalid Interpretation Code [facility] [address] [employer] [address] Work Phone: Tobacco smoking status [facility] Never smoker Invalid Interpretation Code [facility] [address] [address] Work Phone: Tobacco use [facility] Never smoker Invalid Interpretation Code [facility] [address] Work Phone: Office Visiton 05-12-2015 Protein mass conc yes Invalid Interpretation Code [facility] [address] Work Phone: Smoking cessation education (procedure) yes Invalid Interpretation Code [facility] [employer] [address] Work Phone: No Panel Information SARS-CoV-2 & FLU Antigen (Rapid) [facility] Work Phone: S. pyogenes Ag IF Ql (Throat ) S. pyogenes Ag IA Ql (Unsp spec) [facility] Work Phone: Vital Signs Date Time Vital Sign Value Performing Clinician Facility 11-05-2024 03:39-0400 Body temperature 98.4 [degF] Dr. Adam Paiz MD Work Phone: [facility] 11-05-2024 03:39-0400 Diastolic blood pressure 88 mm[Hg] Dr. Adam Paiz MD Work Phone: [facility] 11-05-2024 03:39-0400 Heart rate 76 /min Dr. Adam Paiz MD Work Phone: [facility] 11-05-2024 03:39-0400 Respiratory rate 16 /min Dr. Adam Paiz MD Work Phone: [facility] 11-05-2024 03:39-0400 SaO2% (BldA) [Mass fraction] 96 % Dr. Adam Paiz MD Work Phone: [facility] 11-05-2024 03:39-0400 Systolic blood pressure 127 mm[Hg] Dr. Adam Paiz MD Work Phone: [facility] 11-05-2024 02:52-0400 Body height 170.[address] Adam Paiz MD Work Phone: [facility] 11-05-2024 02:52-0400 Body mass index (BMI) [Ratio] 19.8 kg/m2 Dr. Adam Paiz MD Work Phone: [facility] 11-05-2024 02:52-0400 Body weight 57.[address] Adam Paiz MD Work Phone: [facility] 09-20-2024 12:52-0400 Body mass index (BMI) [Ratio] 19.54 kg/m2 Adam Chandler APRN.ASSISTANT TENNIS COACH Work Phone: [facility] 09-20-2024 12:52-0400 Body temperature 97.2 [degF] Adam Chandler APRN.ASSISTANT TENNIS COACH Work Phone: [facility] 09-20-2024 12:52-0400 Body weight 56.6 kg Adam Chandler APRN.ASSISTANT TENN[employer] COACH Work Phone: [facility] 09-20-2024 12:52-0400 Diastolic blood pressure 76 mm[Hg] Adam Chandler APRN.ASSISTANT TENNIS COACH Work Phone: [facility] 09-20-2024 12:52-0400 Heart rate 65 /min Adam Ramesh BREWERY TECHNICIAN.ASSISTANT TENNIS COACH Work Phone: [facility] 09-20-2024 12:52-0400 Respiratory rate 16 /min Adam Chinzuhair BREWERY TECHNICIAN.ASSISTANT TENNIS COACH Work Phone: [facility] 09-20-2024 12:52-0400 SaO2% (BldA) [Mass fraction] 99 % Adam Chinzuhair BREWERY TECHNICIAN.ASSISTANT TENNIS COACH Work Phone: [facility] 09-20-2024 12:52-0400 Systolic blood pressure 123 mm[Hg] Adam Ramesh BREWERY TECHNICIAN.ASSISTANT TENNIS COACH Work Phone: [facility] 08-30-2024 14:06-0400 Body temperature 97.8 [degF] Dr. Adam Paiz MD Work Phone: [facility] 08-30-2024 14:06-0400 Diastolic blood pressure 78 mm[Hg] Dr. Adam Paiz MD Work Phone: [facility] 08-30-2024 14:06-0400 Heart rate 64 /min Dr. Adam Paiz MD Work Phone: [facility] 08-30-2024 14:06-0400 Respiratory rate 18 /min Dr. Adam Paiz MD Work Phone: [facility] 08-30-2024 14:06-0400 SaO2% (BldA) [Mass fraction] 99 % Dr. Adam Paiz MD Work Phone: [facility] 08-30-2024 14:06-0400 Systolic blood pressure 121 mm[Hg] Dr. Adam Paiz MD Work Phone: [facility] 08-30-2024 13:31-0400 Body mass index (BMI) [Ratio] 20.1 kg/m2 Dr. Adam Paiz MD Work Phone: [facility] 08-30-2024 13:31-0400 Body weight 58.[address] Adam Paiz MD Work Phone: [facility] 08-30-2024 13:06-0400 Body height 170.[address] Aadm Paiz MD Work Phone: [facility] 08-04-2024 18:32-0500 Body mass index (BMI) [Ratio] 19.68 kg/m2 Mayelin Clutter PA-C Work Phone: [facility] 08-04-2024 18:32-0500 Body temperature 98.01 [degF] Mayelin Clutter PA-C Work Phone: [facility] 08-04-2024 18:32-0500 Body weight 57 kg Mayelin Clutter PA-C Work Phone: [facility] 08-04-2024 18:32-0500 Diastolic blood pressure 80 mm[Hg] Mayelin Clutter PA-C Work Phone: [facility] 08-04-2024 18:32-0500 Heart rate 90 /min Mayelin Clutter PA-C Work Phone: [facility] 08-04-2024 18:32-0500 Respiratory rate 18 /min Mayelin Clutter PA-C Work Phone: [facility] 08-04-2024 18:32-0500 SaO2% (BldA) [Mass fraction] 96 % Mayelin Clutter PA-C Work Phone: [facility] 08-04-2024 18:32-0500 Systolic blood pressure 134 mm[Hg] Mayelin Clutter PA-C Work Phone: [facility] 04-16-2024 15:35-0500 Body mass index (BMI) [Ratio] 18.82 kg/m2 Scot Valdez APRN.[employer] Work Phone: [facility] 04-16-2024 15:35-0500 Body temperature 96.91 [degF] Scot Valdez APRN.[employer] Work Phone: [facility] 04-16-2024 15:35-0500 Body weight 54.5 kg Scotzara Valdez BREWERY TECHNICIAN.[employer] Work Phone: [facility] 04-16-2024 15:35-0500 Diastolic blood pressure 78 mm[Hg] Scot José Miguel BREWERY TECHNICIAN.[employer] Work Phone: [facility] 04-16-2024 15:35-0500 Heart rate 85 /min Scot José Miguel BREWERY TECHNICIAN.[employer] Work Phone: [facility] 04-16-2024 15:35-0500 Respiratory rate 20 /min Scot José Miguel BREWERY TECHNICIAN.[employer] Work Phone: [facility] 04-16-2024 15:35-0500 SaO2% (BldA) [Mass fraction] 98 % Scot Valdez BREWERY TECHNICIAN.[employer] Work Phone: [facility] 04-16-2024 15:35-0500 Systolic blood pressure 120 mm[Hg] Scotzara Valdez BREWERY TECHNICIAN.[employer] Work Phone: [facility] 10-23-2023 17:08-0400 Body mass index (BMI) [Ratio] 18.71 kg/m2 Bushra Praisler-Wood BREWERY TECHNICIAN.[employer] Work Phone: [facility] 10-23-2023 17:08-0400 Body temperature 98.8 [degF] Bushra Praisler-Wood BREWERY TECHNICIAN.[employer] Work Phone: [facility] 10-23-2023 17:08-0400 Body weight 54.2 kg Bushra Praisler-Wood BREWERY TECHNICIAN.[employer] Work Phone: [facility] 10-23-2023 17:08-0400 Diastolic blood pressure 76 mm[Hg] Bushra Praisler-Wood BREWERY TECHNICIAN.[employer] Work Phone: [facility] 10-23-2023 17:08-0400 Heart rate 95 /min Bushra Praisler-Wood BREWERY TECHNICIAN.[employer] Work Phone: [facility] 10-23-2023 17:08-0400 Respiratory rate 18 /min Bushra Praisler-Wood BREWERY TECHNICIAN.[employer] Work Phone: [facility] 10-23-2023 17:08-0400 SaO2% (BldA) [Mass fraction] 97 % Bushrakristin Ovalle-Ike BREWERY TECHNICIAN.[employer]STANT [employer] Work Phone: [facility] 10-23-2023 17:08-0400 Systolic blood pressure 145 mm[Hg] Bushra Ovalle-Wood BREWERY TECHNICIAN.[employer] Work Phone: [facility] 09-25-2023 15:26-0400 Body temperature 98.01 [degF] Adam Pendlebury BREWERY TECHNICIAN.[employer] Work Phone: [facility] 09-25-2023 15:26-0400 Body weight 54 kg Adam Pendlebury BREWERY TECHNICIAN.[employer] Work Phone: [facility] 09-25-2023 15:26-0400 Diastolic blood pressure 83 mm[Hg] Adam Pendlebury BREWERY TECHNICIAN.[employer] Work Phone: [facility] 09-25-2023 15:26-0400 Heart rate 98 /min Adam Pendlebury BREWERY TECHNICIAN.[employer] Work Phone: [facility] 09-25-2023 15:26-0400 Respiratory rate 20 /min Adam Pendlebury BREWERY TECHNICIAN.[employer] Work Phone: [facility] 09-25-2023 15:26-0400 SaO2% (BldA) [Mass fraction] 99 % Adam Pendlebury BREWERY TECHNICIAN.[employer] Work Phone: [facility] 09-25-2023 15:26-0400 Systolic blood pressure 144 mm[Hg] Adam Pendlebury BREWERY TECHNICIAN.[employer] Work Phone: [facility] 08-21-2023 04:37-0400 Body temperature 97.6 [degF] [facility] 08-21-2023 04:37-0400 Diastolic blood pressure 86 mm[Hg] [facility] 08-21-2023 04:37-0400 Heart rate 79 /min [facility] 08-21-2023 04:37-0400 Respiratory rate 16 /min [facility] 08-21-2023 04:37-0400 SaO2% (BldA) [Mass fraction] 96 % [facility] 08-21-2023 04:37-0400 Systolic blood pressure 137 mm[Hg] [facility] 08-21-2023 03:41-0400 Body height 170.18 cm [facility] 08-21-2023 03:41-0400 Body mass index (BMI) [Ratio] 20.7 kg/m2 [facility] 08-21-2023 03:41-0400 Body weight 59.87 kg [facility] 08-15-2023 20:52-0500 Body height 170.18 cm [facility] 08-15-2023 20:52-0500 Body mass index (BMI) [Ratio] 19.4 kg/m2 [facility] 08-15-2023 20:52-0500 Body temperature 97.9 [degF] [facility] 08-15-2023 20:52-0500 Body weight 56.35 kg [facility] 08-15-2023 20:52-0500 Diastolic blood pressure 59 mm[Hg] [facility] 08-15-2023 20:52-0500 Heart rate 79 /min [facility] 08-15-2023 20:52-0500 Respiratory rate 18 /min [facility] 08-15-2023 20:52-0500 SaO2% (BldA) [Mass fraction] 97 % [facility] 08-15-2023 20:52-0500 Systolic blood pressure 109 mm[Hg] [facility] 07-07-2023 03:00-0500 Diastolic blood pressure 75 mm[Hg] [facility] 07-07-2023 03:00-0500 Heart rate 81 /min [facility] 07-07-2023 03:00-0500 Respiratory rate 16 /min [facility] 07-07-2023 03:00-0500 SaO2% (BldA) [Mass fraction] 99 % [facility] 07-07-2023 03:00-0500 Systolic blood pressure 106 mm[Hg] [facility] 07-07-2023 00:16-0500 Body height 170.18 cm [facility] 07-07-2023 00:16-0500 Body mass index (BMI) [Ratio] 20.5 kg/m2 [facility] 07-07-2023 00:16-0500 Body temperature 97 [degF] [facility] 07-07-2023 00:16-0500 Body weight 59.4 kg [facility] 05-10-2023 03:41-0500 Body temperature 97.2 [degF] No Generic Provider [facility] 05-10-2023 03:41-0500 Diastolic blood pressure 99 mm[Hg] No Generic Provider [facility] 05-10-2023 03:41-0500 Heart rate 95 /min No Generic Provider [facility] 05-10-2023 03:41-0500 Respiratory rate 16 /min No Generic Provider [facility] 05-10-2023 03:41-0500 SaO2% (BldA) [Mass fraction] 97 % No Generic Provider [facility] 05-10-2023 03:41-0500 Systolic blood pressure 147 mm[Hg] No Generic Provider [facility] 05-10-2023 01:51-0500 Body height 170.2 cm No Generic Provider [facility] 05-10-2023 01:51-0500 Body mass index (BMI) [Ratio] 19.42 kg/m2 No Generic Provider [facility] 05-10-2023 01:51-0500 Body weight 56.25 kg No Generic Provider [facility] 03-14-2023 20:59-0400 Body height 162.56 cm [facility] 03-14-2023 20:59-0400 Body mass index (BMI) [Ratio] 20.4 kg/m2 [facility] 03-14-2023 20:59-0400 Body temperature 97.8 [degF] [facility] 03-14-2023 20:59-0400 Body weight 53.97 kg [facility] 03-14-2023 20:59-0400 Diastolic blood pressure 70 mm[Hg] [facility] 03-14-2023 20:59-0400 Heart rate 86 /min [facility] 03-14-2023 20:59-0400 Respiratory rate 15 /min [facility] 03-14-2023 20:59-0400 SaO2% (BldA) [Mass fraction] 97 % [facility] 03-14-2023 20:59-0400 Systolic blood pressure 129 mm[Hg] [facility] 03-05-2023 13:47-0400 Body temperature 97.3 [degF] Rodolfo Nicholson MD Work Phone: [facility] 03-05-2023 13:47-0400 Body weight 54.34 kg Rodolfo Nicholson MD Work Phone: [facility] 03-05-2023 13:47-0400 Diastolic blood pressure 72 mm[Hg] Rodolfo Nicholson MD Work Phone: [facility] 03-05-2023 13:47-0400 Heart rate 65 /min Rodolfo Nicholson MD Work Phone: [facility] 03-05-2023 13:47-0400 Respiratory rate 18 /min Rodolfo Nicholson MD Work Phone: [facility] 03-05-2023 13:47-0400 SaO2% (BldA) [Mass fraction] 99 % Rodolfo Nicholson MD Work Phone: [facility] 03-05-2023 13:47-0400 Systolic blood pressure 123 mm[Hg] Rodolfo Nicholson MD Work Phone: [facility] 01-31-2023 [id number] Body height 162.56 cm [facility] 01-31-2023 00:21-0400 Body mass index (BMI) [Ratio] 20.9 kg/m2 [facility] 01-31-2023 00:21-0400 Body temperature 98 [degF] [facility] 01-31-2023 00:21-0400 Body weight 55.5 kg [facility] 01-31-2023 00:21-0400 Diastolic blood pressure 85 mm[Hg] [facility] 01-31-2023 00:21-0400 Heart rate 104 /min [facility] 01-31-2023 00:21-0400 Respiratory rate 18 /min [facility] 01-31-2023 00:21-0400 SaO2% (BldA) [Mass fraction] 99 % [facility] 01-31-2023 00:21-0400 Systolic blood pressure 139 mm[Hg] [facility] 12-05-2022 16:38-0400 Body temperature 97.39 [degF] Alicia Isidro APRN.[employer] Work Phone: [facility] 12-05-2022 16:38-0400 Body weight 53.34 kg Alicia Isidro APRN.[employer] Work Phone: [facility] 12-05-2022 16:38-0400 Diastolic blood pressure 70 mm[Hg] Alicia Isidro APRN.[employer] Work Phone: [facility] 12-05-2022 16:38-0400 Heart rate 99 /min Alicia Isidro APRN.[employer] Work Phone: [facility] 12-05-2022 16:38-0400 Respiratory rate 18 /min Alicia Isidro APRN.[employer] Work Phone: [facility] 12-05-2022 16:38-0400 SaO2% (BldA) [Mass fraction] 98 % Alicia Isidro APRN.[employer] Work Phone: [facility] 12-05-2022 16:38-0400 Systolic blood pressure 122 mm[Hg] Alicia Isidro APRN.[employer] Work Phone: [facility] 12-05-2022 00:120400 Body height 170.18 cm [facility] 12-05-2022 00:12-0400 Body mass index (BMI) [Ratio] 18.8 kg/m2 [facility] 12-05-2022 00:12-0400 Body temperature 97.2 [degF] [facility] 12-05-2022 00:120400 Body weight 54.7 kg [facility] 12-05-2022 00:12-0400 Diastolic blood pressure 60 mm[Hg] [facility] 12-05-2022 00:12-0400 Heart rate 80 /min [facility] 12-05-2022 00:12-0400 Respiratory rate 16 /min [facility] 12-05-2022 00:12-0400 SaO2% (BldA) [Mass fraction] 96 % [facility] 12-05-2022 00:12-0400 Systolic blood pressure 106 mm[Hg] [facility] 11-29-2022 19:15-0400 Body height 170.18 cm [facility] 11-29-2022 19:15-0400 Body mass index (BMI) [Ratio] 18.1 kg/m2 [facility] 11-29-2022 19:15-0400 Body temperature 98.5 [degF] [facility] 11-29-2022 19:15-0400 Body weight 52.61 kg [facility] 11-29-2022 19:15-0400 Diastolic blood pressure 80 mm[Hg] [facility] 11-29-2022 19:15-0400 Heart rate 97 /min [facility] 11-29-2022 19:15-0400 Respiratory rate 15 /min [facility] 11-29-2022 19:15-0400 SaO2% (BldA) [Mass fraction] 100 % [facility] 11-29-2022 19:15-0400 Systolic blood pressure 149 mm[Hg] [facility] 11-13-2022 10:51-0400 Body temperature 97.39 [degF] Yamila Torres MD Work Phone: [facility] 11-13-2022 10:51-0400 Body weight 54.43 kg Yamila Torres MD Work Phone: [facility] 11-13-2022 10:51-0400 Diastolic blood pressure 78 mm[Hg] Yamila Torres MD Work Phone: [facility] 11-13-2022 10:51-0400 Heart rate 68 /min Yamila Torres MD Work Phone: [facility] 11-13-2022 10:51-0400 Respiratory rate 16 /min Yamila Torres MD Work Phone: [facility] 11-13-2022 10:51-0400 SaO2% (BldA) [Mass fraction] 99 % Yamila Torres MD Work Phone: [facility] 11-13-2022 10:51-0400 Systolic blood pressure 145 mm[Hg] Yamila Torres MD Work Phone: [facility] 04-05-2022 01:58-0400 Body height 170.18 cm [facility] Work Phone: 04-05-2022 01:58-0400 Body mass index (BMI) [Ratio] 19.1 kg/m2 [facility] Work Phone: 04-05-2022 01:58-0400 Body temperature 98.2 [degF] [facility] Work Phone: 04-05-2022 01:58-0400 Body weight 55.3 kg [facility] Work Phone: 04-05-2022 01:58-0400 Diastolic blood pressure 71 mm[Hg] [facility] Work Phone: 04-05-2022 01:58-0400 Heart rate 74 /min [facility] Work Phone: 04-05-2022 01:58-0400 Respiratory rate 17 /min [facility] Work Phone: 04-05-2022 01:58-0400 SaO2% (BldA) [Mass fraction] 99 % [facility] Work Phone: 04-05-2022 01:58-0400 Systolic blood pressure 125 mm[Hg] [facility] Work Phone: 04-03-2022 01:00-0400 Diastolic blood pressure 77 mm[Hg] [facility] Work Phone: 04-03-2022 01:00-0400 Systolic blood pressure 118 mm[Hg] [facility] Work Phone: 04-03-2022 00:58-0400 Body mass index (BMI) [Ratio] 18.4 kg/m2 [facility] Work Phone: 04-03-2022 00:58-0400 Body temperature 97 [degF] [facility] Work Phone: 04-03-2022 00:58-0400 Body weight 53.52 kg [facility] Work Phone: 04-03-2022 00:58-0400 Heart rate 74 /min [facility] Work Phone: 04-03-2022 00:58-0400 Respiratory rate 15 /min [facility] Work Phone: 04-03-2022 00:58-0400 SaO2% (BldA) [Mass fraction] 98 % [facility] Work Phone: 03-27-2022 02:39-0400 Heart rate 88 /min [facility] Work Phone: 03-27-2022 02:39-0400 Respiratory rate 21 /min [facility] Work Phone: 03-27-2022 02:06-0400 Body height 170.18 cm [facility] Work Phone: 03-27-2022 02:06-0400 Body mass index (BMI) [Ratio] 19.1 kg/m2 [facility] Work Phone: 03-27-2022 02:06-0400 Body temperature 98 [degF] [facility] Work Phone: 03-27-2022 02:06-0400 Body weight 55.4 kg [facility] Work Phone: 03-27-2022 02:06-0400 Diastolic blood pressure 83 mm[Hg] [facility] Work Phone: 03-27-2022 02:06-0400 SaO2% (BldA) [Mass fraction] 97 % [facility] Work Phone: 03-27-2022 02:06-0400 Systolic blood pressure 139 mm[Hg] [facility] Work Phone: 03-06-2022 11:55-0400 Heart rate 88 /min Nirmala Bogner PA-C Work Phone: [facility] 03-06-2022 11:44-0400 Body temperature 97 [degF] Nirmala Bogner PA-C Work Phone: [facility] 03-06-2022 11:44-0400 Body weight 55.16 kg Nirmala Bogner PA-C Work Phone: [facility] 03-06-2022 11:44-0400 Diastolic blood pressure 82 mm[Hg] Nirmala Bogner PA-C Work Phone: [facility] 03-06-2022 11:44-0400 Respiratory rate 18 /min Nirmala Bogner PA-C Work Phone: [facility] 03-06-2022 11:44-0400 SaO2% (BldA) [Mass fraction] 97 % Nirmala Bogner PA-C Work Phone: [facility] 03-06-2022 11:44-0400 Systolic blood pressure 130 mm[Hg] Nirmala Bogner PA-C Work Phone: [facility] 03-05-2022 21:18-0400 Body height 170.[address] Adam Paiz Work Phone: [facility] Work Phone: 03-05-2022 21:18-0400 Body mass index (BMI) [Ratio] 18.9 kg/m2 Dr. Adam Paiz Work Phone: [facility] Work Phone: 03-05-2022 21:18-0400 Body temperature 98 [degF] Dr. Adam Paiz Work Phone: [facility] Work Phone: 03-05-2022 21:18-0400 Body weight 54.[address] Adam Paiz Work Phone: [facility] Work Phone: 03-05-2022 21:18-0400 Diastolic blood pressure 75 mm[Hg] Dr. Adam Paiz Work Phone: [facility] Work Phone: 03-05-2022 21:18-0400 Heart rate 76 /min Dr. Adam Paiz Work Phone: [facility] Work Phone: 03-05-2022 21:18-0400 Respiratory rate 15 /min Dr. Adam Paiz Work Phone: [facility] Work Phone: 03-05-2022 21:18-0400 SaO2% (BldA) [Mass fraction] 98 % Dr. Adam Paiz Work Phone: [facility] Work Phone: 03-05-2022 21:18-0400 Systolic blood pressure 128 mm[Hg] Dr. Adam Paiz Work Phone: [facility] Work Phone: 02-06-2022 13:45-0400 Body temperature 97.81 [degF] Scot Valdez APRN.[employer] Work Phone: [facility] 02-06-2022 13:45-0400 Body weight 53.98 kg Scot Valdez APRN.[employer] Work Phone: [facility] 02-06-2022 13:45-0400 Diastolic blood pressure 70 mm[Hg] Scot Valdez APRN.[employer] Work Phone: [facility] 02-06-2022 13:45-0400 Heart rate 78 /min Scot Valdez APRN.ASSI[employer] Work Phone: [facility] 02-06-2022 13:45-0400 Respiratory rate 16 /min Scot King BREWERY TECHNICIAN.ASSISTANT [employer]ACH Work Phone: [facility] 02-06-2022 13:45-0400 SaO2% (BldA) [Mass fraction] 96 % Scot Valdez BREWERY TECHNICIAN.ASSIST[employer] Work Phone: [facility] 02-06-2022 13:45-0400 Systolic blood pressure 124 mm[Hg] Scot King BREWERY TECHNICIAN.[employer]SI[employer] Work Phone: [facility] 01-31-2022 15:11-0400 Diastolic blood pressure 66 mm[Hg] Dr. Adam Paiz Work Phone: [facility] Work Phone: 01-31-2022 15:11-0400 Respiratory rate 19 /min Dr. Adam Paiz Work Phone: [facility] Work Phone: 01-31-2022 15:11-0400 SaO2% (BldA) [Mass fraction] 98 % Dr. Adam Paiz Work Phone: [facility] Work Phone: 01-31-2022 15:11-0400 Systolic blood pressure 118 mm[Hg] Dr. Adam Paiz Work Phone: [facility] Work Phone: 01-31-2022 14:04-0400 Heart rate 54 /min Dr. Adam Paiz Work Phone: [facility] Work Phone: 01-31-2022 10:10-0400 Body height 170.[address] Adam Paiz Work Phone: [facility] Work Phone: 01-31-2022 10:10-0400 Body mass index (BMI) [Ratio] 18.7 kg/m2 Dr. Adam Paiz Work Phone: [facility] Work Phone: 01-31-2022 10:10-0400 Body temperature 97 [degF] Dr. Adam Paiz Work Phone: [facility] Work Phone: 01-31-2022 10:10-0400 Body weight 54.[address] Adam Paiz Work Phone: [facility] Work Phone: 01-30-2022 05:00-0400 Diastolic blood pressure 81 mm[Hg] Dr. Adam Paiz Work Phone: [facility] Work Phone: 01-30-2022 05:00-0400 Heart rate 74 /min Dr. Adam Paiz Work Phone: [facility] Work Phone: 01-30-2022 05:00-0400 Respiratory rate 16 /min Dr. Adam Paiz Work Phone: [facility] Work Phone: 01-30-2022 05:00-0400 SaO2% (BldA) [Mass fraction] 100 % Dr. Adam Paiz Work Phone: [facility] Work Phone: 01-30-2022 05:00-0400 Systolic blood pressure 150 mm[Hg] Dr. Adam Paiz Work Phone: [facility] Work Phone: 01-30-2022 03:35-0400 Body height 170.[address] Adam Paiz Work Phone: [facility] Work Phone: 01-30-2022 03:35-0400 Body mass index (BMI) [Ratio] 18.6 kg/m2 Dr. Adam Paiz Work Phone: [facility] Work Phone: 01-30-2022 03:35-0400 Body temperature 98.2 [degF] Dr. Adam Paiz Work Phone: [facility] Work Phone: 01-30-2022 03:35-0400 Body weight 53.[address] Adam Paiz Work Phone: [facility] Work Phone: 10-26-2021 23:13-0400 Heart rate 76 /min [facility] Work Phone: 10-26-2021 23:13-0400 Respiratory rate 16 /min [facility] Work Phone: 10-26-2021 23:13-0400 SaO2% (BldA) [Mass fraction] 99 % [facility] Work Phone: 10-26-2021 21:06-0400 Body height 170.18 cm [facility] Work Phone: 10-26-2021 21:06-0400 Body mass index (BMI) [Ratio] 19.1 kg/m2 [facility] Work Phone: 10-26-2021 21:06-0400 Body temperature 96.7 [degF] [facility] Work Phone: 10-26-2021 21:06-0400 Body weight 55.33 kg [facility] Work Phone: 10-26-2021 21:06-0400 Diastolic blood pressure 81 mm[Hg] [facility] Work Phone: 10-26-2021 21:06-0400 Systolic blood pressure 140 mm[Hg] [facility] Work Phone: 09-30-2021 21:19-0400 Body height 170.2 cm LEXA MCGEE [address] [facility] 09-30-2021 21:19-0400 Body temperature 97.88 [degF] LEXA MAGANATENISHAUmang [address] [facility] 09-30-2021 21:19-0400 Body weight 55.5 kg LEXA MCGEE DO [facility] 09-30-2021 21:19-0400 Diastolic blood pressure 86 mm[Hg] LEXA MCGEE DO [facility] 09-30-2021 21:19-0400 Heart rate 75 /min LEXA MCGEE DO [facility] 09-30-2021 21:19-0400 Respiratory rate 18 /min LEXA MCGEE DO [facility] 09-30-2021 21:19-0400 Systolic blood pressure 138 mm[Hg] LEXA MCGEE DO [facility] 08-16-2021 02:06-0500 Diastolic blood pressure 72 mm[Hg] [facility] Work Phone: 08-16-2021 02:06-0500 Heart rate 67 /min [facility] Work Phone: 08-16-2021 02:06-0500 Respiratory rate 18 /min [facility] Work Phone: 08-16-2021 02:06-0500 SaO2% (BldA) [Mass fraction] 97 % [facility] Work Phone: 08-16-2021 02:06-0500 Systolic blood pressure 124 mm[Hg] [facility] Work Phone: 08-16-2021 00:13-0500 Body mass index (BMI) [Ratio] 18.6 kg/m2 [facility] Work Phone: 08-16-2021 00:13-0500 Body temperature 97.3 [degF] [facility] Work Phone: 08-16-2021 00:13-0500 Body weight 53.97 kg [facility] Work Phone: 05-20-2021 00:09-0500 Body temperature 97.7 [degF] AMILCAR REESE MD [facility] 05-20-2021 00:09-0500 Diastolic blood pressure 72 mm[Hg] AMILCAR REESE MD [facility] 05-20-2021 00:09-0500 Heart rate 73 /min AMILCAR REESE MD [facility] 05-20-2021 00:09-0500 Respiratory rate 16 /min AMILCAR REESE MD [facility] 05-20-2021 00:09-0500 Systolic blood pressure 125 mm[Hg] AMILCAR REESE MD [facility] 12-01-2019 19:55-0400 BMI (Body Mass Index) 18.48 kg/m2 [facility]-01-[facility] 19:55-0400 Body Temperature 98.29 [degF] [facility] 12[facility]01[facility] 19:55-0400 Body weight 53.52 kg [facility] 12-01-2019 19:55-0400 BP Diastolic 73 mm[Hg] [facility] 12-01-2019 19:55-0400 BP Systolic 134 mm[Hg]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 Start: 2013 Vaccination for williams n papillomavirus HPV VACCINES (1 - Male 3-dose series) [facility] Start: 2012 PEDS TO ADULT TRANSI TION ANNUAL ASSESSMENT PEDS TO ADULT TRANSITION ANNUAL ASSESSMENT [facility] Start: 2010 Adult depression screening assessment DEPRESSION SCREENING [facility] Start: 2010 PEDS TO ADULT TRANSI TION INITIAL DISCUSSION PEDS TO ADULT TRANSITION INITIAL DISCUSSION [facility] Start: 2009 HPV VACCINE (1 - Mal e 2-dose series) HPV VACCINE (1 - Male 2-dose series) [facility] Start: 2009 HPV Vaccines (1 - Ma le 2-dose series) HPV Vaccines (1 - Male 2-dose series) [facility] Start: 2009 Vaccination for williams n papillomavirus HPV VACCINES (1 - Male 2-dose series) [facility] Start: 2008 MENINGOCOCCAL B: Consider based on risk (1 of 2 - Risk Bexsero 2-dose series) MENINGOCOCCAL B: Consider based on risk (1 of 2 - Risk Bexsero 2-dose series) [facility] Start: 2007 HPV VACCINE (1 - Mal e 2-dose series) HPV VACCINE (1 - Male 2-dose series) [facility] Start: 04-01-2004 Varicella vaccination Varicell a Vaccines (1 of 2 - 2-dose childhood series) [facility] Start: 2003 COVID-19 VACCINE (#1) COVID-19 VACCI NE (#1) [facility] Start: 2003 COVID-19 VACCINE (1) COVID-19 VACCIN E (1) [facility] Start: 2001 History and physical examination, annual for health maintenance Wellness Visit [facility] Start: 1998 COVID-19 VACCINE (#1) COVID-19 VACCI NE (#1) [facility] Start: 1998 HIV screening HIV Screening [facility] Start: 1998 Lipid panel Lipid Panel [facility] Start: 1998 Tetanus vaccination TETANUS EVERY 10 YR [facility] Start: 1998 Yearly Adult Physical Yearly Adult P [facility] Bacteria identified in Urine by Culture [facility] COVID & INFLUENZA A/ B & RSV PCR, ROUTINE COVID & INFLUENZA A/B & RSV PCR, ROUTINE Microbiology Routine Viral illness Ordered: 09/20/2024 [facility] Work Phone: Comment on above: Ordered: 09/20/2024 Patient Education [facility] Work Phone: Patient referral [facility] Work Phone: [facility] STAT 06/01/2019 2:59 AM EST [facility] End: 02-07-2019 S. pyogenes Org specific cx Ql (Throat) Strep A Culture, Throat Microbiology BARRY Once for 1 Occurrences starting 02/07/2019 until 02/07/2019, 1 completed [facility] Comment on above: Once for 1 Occurrenc es starting 02/07/2019 until 02/07/2019, 1 completed S. pyogenes Org spec ific cx Ql (Throat) [facility] End: 04-12-2019 S. pyogenes Org specific cx Ql (Throat) Strep A Culture, Throat Microbiology BARRY Once for 1 Occurrences starting 04/12/2019 until 04/12/2019, 1 completed [facility] Comment on above: Once for 1 Occurrenc es starting 04/12/2019 until 04/12/2019, 1 completed SARS-CoV-2 (COVID-19 ) RNA [Presence] in Respiratory specimen by LISA with probe detection 2019 CORONAVIRUS Microbiology Routine Sore throat Ordered: 03/06/2022 [facility] Work Phone: Comment on above: Ordered: 03/06/2022 Streptococcus pyogen es antigen assay Group A Streptococcus Rapid Screen [facility] Work Phone: [facility] [employer] [facility] STAT 06/01/2019 2:59 AM [facility] Immunizations Immunization Date Immunization Notes Care Provider Tomas zuluaga 2019 diphtheria, tetanus toxoids and acellular pertussis vaccine, unspecified formulation [facility] 2019 Seasonal, quadrivale nt, recombinant, injectable influenza vaccine, preservative free [facility] 2019 tetanus toxoid, redu arleth diphtheria toxoid, and acellular pertussis vaccine, adsorbed [facility] 2019 flu vac qv 2019,18yr up,rc,PF, (FLUBLOK QUAD) syringe [facility] 2019 influenza virus vacc ine, unspecified formulation Yamila Torres MD Work Phone: [facility] [employer] 12-24-2015 meningococcal polysaccharide (groups A, C, Y and W-135) diphtheria toxoid conjugate vaccine (MCV4P) [facility] 03-04-2004 measles, mumps and rubella virus vaccine Geremias Layla DO Work Phone: [facility] 03-04-2004 poliovirus vaccine, inactivated Geremias Layla DO Work Phone: [facility] 03-04-2003 diphtheria, tetanus toxoids and acellular pertussis vaccine, unspecified formulation Geremias Layla DO Work Phone: [facility] 07-10-2001 diphtheria, tetanus toxoids and acellular pertussis vaccine, unspecified formulation Geremias Layla DO Work Phone: [facility] 07-10-2001 hepatitis B vaccine, pediatric or pediatric/adolescent dosage Geremias Layla DO Work Phone: [facility] 07-10-2001 poliovirus vaccine, inactivated Geremias Layla DO Work Phone: [facility] 07-11-2000 diphtheria, tetanus toxoids and acellular pertussis vaccine, unspecified formulation Geremias Layla DO Work Phone: [facility] 07-11-2000 hepatitis B vaccine, pediatric or pediatric/adolescent dosage Geremias Layla DO Work Phone: [facility] 07-11-2000 poliovirus vaccine, inactivated Geremias Layla DO Work Phone: [facility] 09-29-1999 diphtheria, tetanus toxoids and acellular pertussis vaccine, unspecified formulation Geermias Layla DO Work Phone: [facility] 09-29-1999 haemophilus influenz ae type b conjugate and Hepatitis B vaccine Geremias Layla DO Work Phone: [facility] 09-29-1999 measles, mumps and rubella virus vaccine Geremias Layla DO Work Phone: [facility] 09-29-1999 trivalent poliovirus vaccine, live, oral Geremias Layla DO Work Phone: [facility] Payers Date Payer Category Payer Self-pay [id number] 2023 Medicare (Managed Care) [employer] [id number] 2023 Unknown [id number] 2023 Medicare [id number]. [id number] 2023 Medicare [id number] 2021 Unknown [employer] [facility] AND DISABLED [id number] 2021-Present [address] [place] [address] [id number] 2018 Medicaid [employer] MEDICAID [employer] xxxxxxxxxxx 2018-Present xxxxxxxxxxx [id number] 2017 Medicaid [employer] A[employer] [id number] 2017-Present [phone] [address] [place] [address] Medicaid [id number]. [id number] 2017 Medicaid [id number] [id number]. [id number] 2017 Medicaid [id number] 2017 Medicaid [id number] 1998 Unknown [id number] 2.16.840.1.590035.3.579.2. 297 1998 Unknown [id number] 2.16.840.1.506503.3.579.2. 297 1998 Unknown [id number] 2.16.840.1.327432.3.579.2. 297 1998 Unknown [id number] 2.16.840.1.017772.3.579.2. 297 1998 Unknown [id number] 2.16840.1.385132.3.579.2. 903 1998 Unknown [id number] 2.16.840.1.865053.3.579.2. 903 1998 Unknown [id number] 2.16.840.1.377824.3.579.2. 903 1998 Unknown [id number] 2.16.840.1.356730.3.579.2. 903 1998 Unknown [id number] 2.16.840.1.231299.3.579.2. 903 1998 Unknown [id number] 2.16.840.1.045499.3.579.2. 903 1998 Unknown [id number] 2.16.840.1.271190.3.579.2. 903 1998 Unknown [id number] 2.16.840.1.107613.3.579.2. 903 1998 Unknown [id number] 2.16.840.1.133045.3.579.2. 903 1998 Unknown [id number] 2.16.840.1.094914.3.579.2. 903 1998 Unknown [id number] 2.840.1.838689.3.579.2. 903 1998 Unknown [id number] 2.840.1.118121.3.579.2. 903 1998 Unknown [id number] 2.840.1.356930.3.579.2. 903 1998 Unknown [id number] 2.840.1.325222.3.579.2. 903 1998 Unknown [id number] 2.840.1.157930.3.579.2. 903 1998 Unknown [id number] 2.840.1.399927.3.579.2. 1246 Medicare MEDICARE PART A B [id number] Unknown [id number] 2.840.1.202332.3.579.2. 443 Unknown [id number] 20.1.784131.3.579.2. 462 Unknown [id number] 2840.1.238167.3.579.2. 462 Unknown [id number] 2840.1.106809.3.579.2. 462 Unknown [id number] 2840.1.870183.3.579.2. 462 Unknown [id number] 2840.1.217418.3.579.2. 462 Unknown [id number] 2840.1.275557.3.579.2. 462 Unknown [id number] 2840.1.609197.3.579.2. 462 Social History Date Type Detail Facility Start: 10-06-2018 End: 03-06-2022 Tobacco smoking status ILIS Never smoker [facility] Start: 10-06-2018 End: 2019 History SDOH Alcohol Frequency 1 [facility] Start: 1998 Sex Assigned At Not on file [facility] Start: 02-07-2019 End: 05-31-2019 Alcohol intake Lifetime non-drinker (finding) [facility] Start: 10-30-2019 History SDOH Physica l Activity DPW 5 [facility] Start: 10-30-2019 History SDOH Physica l Activity MPS 4 [facility] Start: 09-04-2021 End: 05-10-2023 Exposure to SARS-CoV-2 (event) Not sure [facility] Start: 11-17-2020 End: 09-20-2024 Alcohol intake Current non-drinker of alcohol (finding) [facility] Start: 10-26-2021 End: 08-21-2023 Tobacco smoking status NHIS Unknown if ever smoked [facility] Start: 01-15-2020 None [facility] Start: 10-26-2020 Non-smoker [facility] Start: 1998 Sex Assigned At Male [facility] Start: 01-09-2018 End: 03-06-2022 Tobacco use and exposure Smokeless tobacco non-user [facility] Start: 05-19-2020 End: 03-05-2023 History of Social function [facility] Start: 05-19-2020 End: 03-05-2023 Tobacco use panel [facility] Retired 07/10/2019 P HQ Score 0 [facility] Start: 08-30-2024 Sex Male (finding) [facility] Functional Status Date Assessment Result Facility 09-30-2021 Functional Status [facility] 09-30-2021 Functional Status [facility] Mental Status Date Assessment Result Facility 11-05-2024 Cognitive function Level Of Cons ciousness Awake;Alert;Appropriate;Follow s Commands [facility] Work Phone: 08-30-2024 Cognitive function Voice/Name [facility] Work Phone: 01-31-2023 Cognitive function Voice/Name [facility] Work Phone: 11-29-2022 Cognitive function Level Of Cons ciousness Awake;Alert;Appropriate [facility] Work Phone: 03-05-2022 Cognitive function Level Of Cons ciousness Awake;Alert;Appropriate;Follow s Commands [facility] Work Phone: 09-30-[address] [facility] 09-30-2021 Mental Status [facility] Clinical Notes 07-30-2020 to 11-05-2024 Adam Chandler APRN.[employer] - 09/20/2024 1:03 PM EDT Note Date & Type Note Facility 11-05-2024 Discharge summary [facility] 09-20-2024 Note SARS-COV-2 (AGENT OF COVID-19) RNA: Not detected INFLUENZA A RNA: Not detected INFLUENZA B RNA: Not detected RESPIRATORY SYNCYTIAL VIRUS (RSV) RNA: Not detected [facility] Comment on above: Performed By: #### 9 [id number] #### [facility] CLIA [id number] [address] [place] [address] [place] 09-20-2024 Note HNO ID: [id number] Author: ADAM CHANDLER APRN.[employer] Service: ? Author Type: Nurse Practitioner Type: Progress Notes Filed: 09/20/2024 13:39 Note Text: Subjective HPI Nontoxic-appearing 24-year-old male presents urgent care chief complaint cough sore throat nasal congestion fatigue. Duration of symptoms 2 days. Associated symptoms listed above. OTC medications none. Most prominent symptom today sinus pressure sore throat. No fevers. Denies any difficulty swallowing his secretions decreased range of motion neck or trismus. Past medical history prescription medications allergies reviewed .Patient presents with: URI: X2 days PAST MEDICAL HISTORY Diagnosis Date - Cerebral palsy (HCC) PAST SURGICAL HISTORY Procedure Laterality Date - LEG SURGERY HX x4 - S TENDON - ACHILLES Bilateral 01/30/2018 [facility] ALLERGIES Latex MEDICATIONS - hydrocortisone (ANUSOL-HC) 2.5 % rectal cream (Patient not taking: Reported on 08/04/2024) - ondansetron orally disintegrating (ZOFRAN ODT) 4 mg disintegrating tablet Take 1 tablet by mouth every 6 hours as needed. (Patient not taking: Reported on 08/04/2024) FAMILY HISTORY Problem Relation Age of Onset - None Father - None Mother - Cancer Maternal Grandmother throat - Alzheimer's Disease Maternal Grandmother - None Sister - None Brother - None Brother - None Brother - None Brother - None Sister - None Sister - None Sister Social History Tobacco Use - Smoking status: Never - Smokeless tobacco: Never Substance Use Topics - Alcohol use: No - Drug use: No BP 123/76 Pulse 65 Temp 36.2 ?C (97.2 ?F) (Left Tympanic) Resp 16 Wt 56.6 kg (124 lb 12.5 oz) SpO2 99% BMI 19.54 kg/m? Review of Systems Constitutional: Negative for chills, fever and malaise/fatigue. HENT: Positive for congestion and sore throat. Negative for ear discharge, ear pain and sinus pain. Eyes: Negative for blurred vision, pain, discharge and redness. Respiratory: Positive for cough. Negative for hemoptysis, sputum production, shortness of breath, wheezing and stridor. Cardiovascular: Negative for chest pain. Gastrointestinal: Negative for abdominal pain, diarrhea, nausea and vomiting. Musculoskeletal: Positive for myalgias. Skin: Negative for itching and rash. Neurological: Positive for headaches. Negative for dizziness. Objective Physical Exam Constitutional: General: He is not in acute distress. Appearance: He is not diaphoretic. HENT: Head: Normocephalic. Jaw: No trismus, tenderness, swelling or pain on movement. Nose: Congestion present. Mouth/Throat: Mouth: Mucous membranes are moist. Pharynx: Oropharynx is clear. Uvula midline. Posterior oropharyngeal erythema present. No pharyngeal swelling, oropharyngeal exudate or uvula swelling. Tonsils: No tonsillar exudate or tonsillar abscesses. Eyes: Conjunctiva/sclera: Conjunctivae normal. Pupils: Pupils are equal, round, and reactive to light. Cardiovascular: Rate and Rhythm: Normal rate and regular rhythm. Heart sounds: Normal heart sounds. Pulmonary: Effort: Pulmonary effort is normal. No tachypnea, accessory muscle usage or respiratory distress. Breath sounds: Normal breath sounds. No stridor. No wheezing, rhonchi or rales. Abdominal: General: There is no distension. Palpations: Abdomen is soft. Tenderness: There is no abdominal tenderness. There is no guarding or rebound. Musculoskeletal: Cervical back: Normal range of motion and neck supple. No edema, erythema, rigidity or tenderness. No pain with movement. Normal range of motion. Lymphadenopathy: Cervical: No cervical adenopathy. Skin: General: Skin is warm and dry. Neurological: Mental Status: He is alert and oriented to person, place, and time. ASSESSMENT/PLAN: 1. Viral illness - ICD9: 079.99, ICD10: B34.9 - Discussed viral etiology and rationale for treatment. - Rapid strep negative in office today - Symptomatic treatment with prn analgesia - Supportive care with fluids and rest - COVID AND INFLUENZA A/B AND RSV PCR, ROUTINE Strep test negative. Diagnosed with viral illness. Treat supportively. Patient was educated on supportive therapies. Patient will follow up with primary care provider as needed. Patient was instructed to immediately proceed to emergency room for any new, worsening, or symptoms lasting longer than anticipated. The patient's clinical presentation is otherwise unremarkable at this time. Based on exam and clinical finding, the patient is stable for discharge. Plan of care was discussed with patient. Patient verbalizes understanding and agrees to plan of care. This note was generated using [employer] software. It may contain errors in wording, punctuation, or spelling. Adam Chadnler APRN.[facility] 09-20-2024 History of Present illness Narrative Subjective HPI Nontoxic-appearing 24-year-old male presents urgent care chief complaint cough sore throat nasal congestion fatigue. Duration of symptoms 2 days. Associated symptoms listed above. OTC medications none. Most prominent symptom today sinus pressure sore throat. No fevers. Denies any difficulty swallowing his secretions decreased range of motion neck or trismus. Past medical history prescription medications allergies reviewed .Patient presents with: URI: X2 days PAST MEDICAL HISTORY Diagnosis Date Cerebral palsy (HCC) PAST SURGICAL HISTORY Procedure Laterality Date LEG SURGERY HX x4 S TENDON - ACHILLES Bilateral 01/30/2018 [facility] ALLERGIES Latex MEDICATIONS hydrocortisone (ANUSOL-HC) 2.5 % rectal cream (Patient not taking: Reported on 08/04/2024) ondansetron orally disintegrating (ZOFRAN ODT) 4 mg disintegrating tablet Take 1 tablet by mouth every 6 hours as needed. (Patient not taking: Reported on 08/04/2024) FAMILY HISTORY Problem Relation Age of Onset None Father None Mother Cancer Maternal Grandmother throat Alzheimer's Disease Maternal Grandmother None Sister None Brother None Brother None Brother None Brother None Sister None Sister None Sister Social History Tobacco Use Smoking status: Never Smokeless tobacco: Never Substance Use Topics Alcohol use: No Drug use: No BP 123/76 Pulse 65 Temp 36.2 C (97.2 F) (Left Tympanic) Resp 16 Wt 56.6 kg (124 lb 12.5 oz) SpO2 99% BMI 19.54 kg/m Review of Systems Constitutional: Negative for chills, fever and malaise/fatigue. HENT: Positive for congestion and sore throat. Negative for ear discharge, ear pain and sinus pain. Eyes: Negative for blurred vision, pain, discharge and redness. Respiratory: Positive for cough. Negative for hemoptysis, sputum production, shortness of breath, wheezing and stridor. Cardiovascular: Negative for chest pain. Gastrointestinal: Negative for abdominal pain, diarrhea, nausea and vomiting. Musculoskeletal: Positive for myalgias. Skin: Negative for itching and rash. Neurological: Positive for headaches. Negative for dizziness. Objective Physical Exam Constitutional: General: He is not in acute distress. Appearance: He is not diaphoretic. HENT: Head: Normocephalic. Jaw: No trismus, tenderness, swelling or pain on movement. Nose: Congestion present. Mouth/Throat: Mouth: Mucous membranes are moist. Pharynx: Oropharynx is clear. Uvula midline. Posterior oropharyngeal erythema present. No pharyngeal swelling, oropharyngeal exudate or uvula swelling. Tonsils: No tonsillar exudate or tonsillar abscesses. Eyes: Conjunctiva/sclera: Conjunctivae normal. Pupils: Pupils are equal, round, and reactive to light. Cardiovascular: Rate and Rhythm: Normal rate and regular rhythm. Heart sounds: Normal heart sounds. Pulmonary: Effort: Pulmonary effort is normal. No tachypnea, accessory muscle usage or respiratory distress. Breath sounds: Normal breath sounds. No stridor. No wheezing, rhonchi or rales. Abdominal: General: There is no distension. Palpations: Abdomen is soft. Tenderness: There is no abdominal tenderness. There is no guarding or rebound. Musculoskeletal: Cervical back: Normal range of motion and neck supple. No edema, erythema, rigidity or tenderness. No pain with movement. Normal range of motion. Lymphadenopathy: Cervical: No cervical adenopathy. Skin: General: Skin is warm and dry. Neurological: Mental Status: He is alert and oriented to person, place, and time. ASSESSMENT/PLAN: 1. Viral illness - ICD9: 079.99, ICD10: B34.9 - Discussed viral etiology and rationale for treatment. - Rapid strep negative in office today - Symptomatic treatment with prn analgesia - Supportive care with fluids and rest - COVID & INFLUENZA A/B & RSV PCR, ROUTINE Strep test negative. Diagnosed with viral illness. Treat supportively. Patient was educated on supportive therapies. Patient will follow up with primary care provider as needed. Patient was instructed to immediately proceed to emergency room for any new, worsening, or symptoms lasting longer than anticipated. The patient's clinical presentation is otherwise unremarkable at this time. Based on exam and clinical finding, the patient is stable for discharge. Plan of care was discussed with patient. Patient verbalizes understanding and agrees to plan of care. This note was generated using Program[employer] software. It may contain errors in wording, punctuation, or spelling. Adam Chandler APRN.ASSISTANT [employer]ACH documented in this encounter [facility] 08-30-2024 Discharge summary [facility] 08-30-2024 Radiology Diagnostic study note [facility] Imaging Services [address] [place] [id number] Chest 1 View (Portable) MR#: [id number] Acct: [id number] Name: JEZ HAIDER Rep #: [id number] : 2000 M 24 From: Madyson Hobbs MD PCP: Dr. Adam Paiz MD Status: REG ER Study:Chest 1 View (Portable) Date of Exam: 08/30/24 Exam# [id number] Ordering Dr: Xu Gordon MD PROCEDURE: CHEST 1 VIEW (PORTABLE) 08/30/2024 REASON FOR EXAM: 24-year-old male, fatigue, chest discomfort and weakness. History of cerebral palsy. TECHNIQUE: Frontal view of the chest. COMPARISON: Chest radiographs 12/05/2022. FINDINGS: Hardware: None. Heart: The heart size is normal. Lungs: No focal consolidation, pleural effusion or pneumothorax. Bones: The bones are unremarkable. RAD/Chest 1 View (Portable) IMPRESSION: Negative Chest. Reading Location: [id number] CC: Dr. Xu oGrdon MD; Dr. Adam Paiz MD ~ Floor Hand: Signed [facility] 08-30-2024 Discharge summary Note Date/Time August 30, 2024 2:35pm [facility] Medical Records Department [address] [place] [address] Emergency Department Summary 08/30/24 MR#: [id number] Acct: [id number] Name: JEZ HAIDER Rep #:[id number] : 2000 24 From: Xu Gordon MD PCP: Dr. Adam Paiz MD Status:REG ER Location: ED HPI History of Present Illness Chief Complaint: Chest Pain Narrative Narrative: 24-year-old male past medical history of cerebral palsy presents with generalized weakness and his heart feeling heavy as well as subjective fever andfeeling cold. The symptoms began around 2 PM yesterday afternoon. He states hewas sent home from work. He is not sure if he had food poisoning because he vomited twice yesterday without any blood in his emesis. His symptoms began approximately 23 hours ago. No exacerbating or alleviating factors but he states he feels weak and drained and that his heart feels heavy. [facility] Medical History Migraines Herniated lumbar disc without myelopathy Cerebral palsy Home Medications ?Medication ?Instructions ?Recorded ?Last Taken ?Type cyclobenzaprine 10 mg tablet 10 mg PO TID PRN Muscle S pasm #15 08/21/23 Unknown Rx TABLETS oxycodone-acetaminophen 5 mg-325 1 tab PO Q6H PRN pain 3 days #12 01/18/24 Unknown Rx mg tablet (Percocet) tabs prednisone 20 mg tablet 40 mg (2 x 20 mg) PO DAILY 5 days 01/18/24 Unknown Rx #10 tabs naproxen 500 mg tablet 500 mg PO BID #14 tabs 02/11 Unknown Rx hydrocortisone 2.5 % topical cream 1 applic HI QHS #30 grams 02/26/24 Unknown Rx with perineal applicator (Proctosol HC) Allergy/AdvReac Type Severity Reaction Status Date / Time latex Allergy Hives Verified 02/26/24 11:25 adhesive tape AdvReac Rash Verified 02/26/24 11:25 Surgical History History of appendectomy Social History Smoking Status: Never smoker alcohol intake: never substance use type: does not use ROS ROS ED ROS Narrative Review of systems positive for subjective fever alternating with feeling cold. No rigors. 2 episodes of nausea and vomiting yesterday. No recent cough or shortness of breath. States body and muscles feel tight and heart feels heavy. No dysuria or hematuria. Denies any exacerbating or alleviating factors. EXAM Physical Exam Narrative Exam Narrative: Afebrile. Vital signs noted. Nontoxic-appearing. Cardiovascular examination reveals a regular rate and rhythm. Lungs are clear to auscultation bilaterally. Abdomen is soft and nontender with normal active bowel sounds. No guarding or rebound. Neurological examination nonfocal, nonlateralizing. No noted pedal edema. Const Vital Signs: 08/30/24 13:06 08/30/24 13:06 Temperature 98 F Temperature Source Temporal Pulse Rate 82 Respiratory Rate 14 Respiratory Effort Normal Respiratory Pattern Normal Blood Pressure 138/73 H Blood Pressure Mean 94 Pulse Ox 98 Oxygen Delivery Method Room Air MDM MDM MDM Narrative Medical decision making narrative: Differential diagnosis includes but not limited to dehydration versus other electrolyte imbalance versus viral syndrome versus pneumonia. I have low suspicion for acute coronary syndrome as the patient states he is not having chest pain although that is what he was triaged as. He denies chest pain but states he feels weak, drained, and tired/fatigued. EKG was obtained and interpreted by myself independently as normal sinus rhythm at 66 bpm without ectopy or acute ST changes. No STEMI. I reviewed his laboratory work and he has slight neutropenia 4.3 and when compared to prior labs he has had this previously. I think this is more nonspecific. Hemoglobin normal at 16.2 with hematocrit 48.7, platelet count normal at 218. CMP is remarkable for a BUN of 20 with a normal creatinine of 0.97 which could be slight dehydration. Sodium is normal at 140 and potassium 3.7, normal. LFTs show alk phos low at 32 which I think is nonspecific. High-sensitivity troponin is less than 6. I feel this is greater than a 6-hour troponin as his symptoms began yesterday at around 2 PM. I do not feel he requires serial enzymes. Respiratory swab is negative for COVID, influenza A and B, and RSV. UA shows 0 WBCs. I do not feel antibiotics are indicated. Chest x-ray interpreted by myself independently in 1 view shows no evidence of pneumonia or pneumothorax. I reviewed the radiology report which confirms my independent interpretation. Patient was seen ambulating to the restroom withoutdifficulty, and back to his cot. He does have a baseline limp. At this point in time, I feel he can be discharged to follow-up after his IV fluids are complete. He was given a note to be off work today. Return instructions to theemergency department were reviewed. Disposition is discharged home in stable condition. History & Record Review Discussion w/independent historian: Patient Additional record(s) reviewed:: Prior labs Lab Data Attestation: I reviewed the patient's lab results. Labs: Laboratory Results - last 24 hr 08/30/24 08/30/24 13:16 13:37 WBC 4.3 L RBC 5.30 Hgb 16.2 Hct 48.7 MCV 91.9 MCH 30.6 MCHC 33.3 RDW Std Deviation 42.7 RDW Coeff of Kaveh 12.6 Plt Count 218 MPV 11.8 Immature Gran % (Auto) 0.500 Neut % (Auto) 47.2 Lymph % (Auto) 43.2 H Snyder % (Auto) 6.3 Eos % (Auto) 1.9 Baso % (Auto) 0.9 Absolute Neuts (auto) 2.0 Absolute Lymphs (auto) 1.86 Nucleated RBC % 0 Sodium 140 Potassium 3.7 Chloride 101 Carbon Dioxide 26.0 Anion Gap 13 BUN 20 H Creatinine 0.97 Estim Creat Clear Calc 95.16 Est GFR (MDRD) Non-Af 111 BUN/Creatinine Ratio 20.6 H Glucose 92 Calcium 9.7 Total Bilirubin 1.02 AST 25 ALT 18 Alkaline Phosphatase 32 L Troponin T High Sens < 6 Total Protein 7.9 Albumin 5.0 Globulin 6.6 H Albumin/Globulin Ratio 0.2 L Urine Color Yellow Urine Clarity Clear Urine pH 6.0 Ur Specific [place] 1.025 Urine Protein 30 H Urine Glucose (UA) Normal Urine Ketones Negative Urine Occult Blood Negative Urine Nitrite Negative Urine Bilirubin Negative Urine Urobilinogen Normal Ur Leukocyte Esterase Negative Urine RBC 0 SEEN Urine WBC 0 SEEN Ur Squamous Epith Cells 0-5 SEEN Urine Bacteria 2+ Urine Mucus 1+ Radiography Chest X-Ray - ED: 1 View, Read by ED Physician, Read by Radiologist and Normal Diagnostic Testing: Clinical Impression(s) from Imaging Studies Chest X-Ray 08/30/24 13:40 IMPRESSION: Negative Chest. Reading Location: [facility] Discharge Plan Triage Chief Complaint: Chest Pain Other Complaint: General Illness ED Provider: Xu Gordon Dx/Rx/DC Orders Clinical Impression: Generalized weakness, Chest heaviness Instructions: ED Chest Pain, Uncertain Cause, ED Weakness Uncertain Cause Prescriptions: No Action cyclobenzaprine [cyclobenzaprine] 10 mg tablet 10 mg PO TID PRN (Reason: Muscle Spasm) Qty: 15 0RF prednisone 20 mg tablet 40 mg PO DAILY 5 Days Qty: 10 0RF oxycodone-acetaminophen [Percocet] 5-325 mg tablet 1 tab PO Q6H PRN (Reason: pain) 3 Days Qty: 12 0RF hydrocortisone [Proctosol HC] 2.5 % cream with perineal applicator 1 applic HI QHS Qty: 30 0RF naproxen 500 mg tablet 500 mg PO BID Qty: 14 0RF Stand Alone Forms: ED Work / School Excuse Primary Care Provider: Adam Paiz Referrals: Adam Paiz MD [Primary Care Provider] - 3-5 Days if not improving Activity Restrictions/Additional Instructions: Drink plenty of oral fluids. Follow-up with your primary care provider. Returnwith new or worsening symptoms. Print Language: Ukrainian Disposition Disposition: Home, Self Care What to do if you have Problems For any increased pain, shortness of breath, bleeding, nausea or vomiting, chestpain, or any unexpected problems, contact your Primary Care Provider. Call [facility] ([phone]) or report to the closest Emergency Room. Call 911 if necessary. 08/30/24 1435 <Electronically signed by Xu Gordon MD> Cosigner Signature (if applicable): CC: Dr. Adam Paiz MD ~ Signed [facility] Work Phone: [phone] 863-100002-24-2025 NoteHNO ID: [id number] Author: MAYELIN NICOLAS PA-C Service: ? Author Type: Physician Customer Service Voice Type: Progress Notes Filed: 08/04/2024 18:51 Note Text: This note was created using [email or web address]. Subjective Jez Haider is a 24 year old male. Patient is a 24-year-old male who complains of fever, chills, sore throat and myalgia that he has been experiencing for the past 3 days. Patient describes increased weakness and fatigue and in general feeling of overall illness. Patient reports no congestion, sinus pressure, ear pain or cough. Diarrhea Associated symptoms include chills and myalgias. Review of Systems Constitutional: Positive for chills, fatigue and fever. HENT: Positive for sore throat. Gastrointestinal: Positive for diarrhea. Musculoskeletal: Positive for myalgias. All other systems reviewed and are negative. Objective BP 134/80 Pulse 90 Temp 36.7 ?C (98 ?F) Resp 18 Wt 57 kg (125 lb 10.6 oz) SpO2 96% BMI 19.68 kg/m? Physical Exam Vitals and nursing note reviewed. Constitutional: Appearance: Normal appearance. He is normal weight. HENT: Head: Normocephalic and atraumatic. Right Ear: Tympanic membrane, ear canal and external ear normal. Left Ear: Tympanic membrane, ear canal and external ear normal. Nose: Nose normal. Mouth/Throat: Mouth: Mucous membranes are moist. Pharynx: Oropharynx is clear. Posterior oropharyngeal erythema present. Eyes: Extraocular Movements: Extraocular movements intact. Conjunctiva/sclera: Conjunctivae normal. Pupils: Pupils are equal, round, and reactive to light. Cardiovascular: Rate and Rhythm: Normal rate and regular rhythm. Pulses: Normal pulses. Heart sounds: Normal heart sounds. Pulmonary: Effort: Pulmonary effort is normal. Breath sounds: Normal breath sounds. Abdominal: General: Abdomen is flat. Bowel sounds are normal. There is no distension. Palpations: Abdomen is soft. Tenderness: There is no abdominal tenderness. Musculoskeletal: Cervical back: Normal range of motion and neck supple. Skin: General: Skin is warm and dry. Capillary Refill: Capillary refill takes less than 2 seconds. Neurological: General: No focal deficit present. Mental Status: He is alert and oriented to person, place, and time. Psychiatric: Mood and Affect: Mood normal. Behavior: Behavior normal. Thought Content: Thought content normal. Judgment: Judgment normal. Assessment and Plan Physical exam findings as noted above. Rapid strep test is positive. Patient was provided with a prescription for Augmentin 875-125 mg. Patient also requests a refill for a muscle relaxant medication for his chronic myalgia and was provided with a prescription for robaxin 500 mg. Supportive care instructions were discussed and the patient was placed off work -05 August 2024. CLINICAL IMPRESSION: Acute Streptococcal Tonsillitis; Chronic Myalgia ASSESSMENT/PLAN: 1. Sore throat - ICD9: 462, ICD10: J02.9 (primary diagnosis) - STREP A MOLECULAR (POC) 2. Acute non-recurrent streptococcal tonsillitis - ICD9: 034.0, ICD10: J03.00 - AMOXICILLIN 875 MG-POTASSIUM CLAVULANATE 125 MG TABLET 3. Myalgia - ICD9: 729.1, ICD10: M79.10 - METHOCARBAMOL 500 MG TABLET [facility]02-24-2025 History of Present illness Narrative* Mayelin Nicolas PA-C - 08/04/2024 6:45 PM EST This note was created using [employer]. Subjective Jez Haider is a 24 year old male. Patient is a 24-year-old male who complains of fever, chills, sore throat and myalgia that he has been experiencing for the past 3 days. Patient describes increased weakness and fatigue and in general feeling of overall illness. Patient reports no congestion, sinus pressure, ear pain or cough. Diarrhea Associated symptoms include chills and myalgias. Review of Systems Constitutional: Positive for chills, fatigue and fever. HENT: Positive for sore throat. Gastrointestinal: Positive for diarrhea. Musculoskeletal: Positive for myalgias. All other systems reviewed and are negative. Objective BP 134/80 Pulse 90 Temp 36.7 C (98 F) Resp 18 Wt 57 kg (125 lb 10.6 oz) SpO2 96% BMI 19.68 kg/m Physical Exam Vitals and nursing note reviewed. Constitutional: Appearance: Normal appearance. He is normal weight. HENT: Head: Normocephalic and atraumatic. Right Ear: Tympanic membrane, ear canal and external ear normal. Left Ear: Tympanic membrane, ear canal and external ear normal. Nose: Nose normal. Mouth/Throat: Mouth: Mucous membranes are moist. Pharynx: Oropharynx is clear. Posterior oropharyngeal erythema present. Eyes: Extraocular Movements: Extraocular movements intact. Conjunctiva/sclera: Conjunctivae normal. Pupils: Pupils are equal, round, and reactive to light. Cardiovascular: Rate and Rhythm: Normal rate and regular rhythm. Pulses: Normal pulses. Heart sounds: Normal heart sounds. Pulmonary: Effort: Pulmonary effort is normal. Breath sounds: Normal breath sounds. Abdominal: General: Abdomen is flat. Bowel sounds are normal. There is no distension. Palpations: Abdomen is soft. Tenderness: There is no abdominal tenderness. Musculoskeletal: Cervical back: Normal range of motion and neck supple. Skin: General: Skin is warm and dry. Capillary Refill: Capillary refill takes less than 2 seconds. Neurological: General: No focal deficit present. Mental Status: He is alert and oriented to person, place, and time. Psychiatric: Mood and Affect: Mood normal. Behavior: Behavior normal. Thought Content: Thought content normal. Judgment: Judgment normal. Assessment and Plan Physical exam findings as noted above. Rapid strep test is positive. Patient was provided with a prescription for Augmentin 875-125 mg. Patient also requests a refill for a muscle relaxant medicationfor his chronic myalgia and was provided with a prescription for robaxin 500 mg. Supportive care instructions were discussed and the patient was placed off work -05 August 2024. CLINICAL IMPRESSION: Acute Streptococcal Tonsillitis; Chronic Myalgia ASSESSMENT/PLAN: 1. Sore throat - ICD9: 462, ICD10: J02.9 (primary diagnosis) - STREP A MOLECULAR (POC) 2. Acute non-recurrent streptococcal tonsillitis - ICD9: 034.0, ICD10: J03.00 - AMOXICILLIN 875 MG-POTASSIUM CLAVULANATE 125 MG TABLET 3. Myalgia - ICD9: 729.1, ICD10: M79.10 - METHOCARBAMOL 500 MG TABLET Mayelin Nicolas PA-C [facility] NoteHNO ID: [id number] Author: SCOT VALDEZ APRN.ASSISTANT TENNIS COACH Service: ? Author Type: Nurse Practitioner Type: Progress Notes Filed: 04/16/2024 16:11 Note Text: Subjective HPI HPI Jez Haider is a 23 year old male who presents today for CC of vomiting, body aches, sob. This started 1 day ago. Has tried otc medication for relief. Symptoms are worsened by nothing. Denies cough, cp, fever. Last void few hours ago. Seen in ER last night for these s/s, dx viral. .Patient presents with: Nausea AND Vomiting: Sob x 1 day PAST MEDICAL HISTORY Diagnosis Date Cerebral palsy (HCC) PAST SURGICAL HISTORY Procedure Laterality Date LEG SURGERY HX x4 S TENDON - ACHILLES Bilateral 01/30/2018 [facility] ALLERGIES Latex MEDICATIONS hydrocortisone (ANUSOL-HC) 2.5 % rectal cream ondansetron orally disintegrating (ZOFRAN ODT) 4 mg disintegrating tablet Take 1 tablet by mouth every 6 hours as needed. cyclobenzaprine (FLEXERIL) 10 mg tablet Take 1 tablet by mouth three times a day as needed. cyclobenzaprine (FLEXERIL) 10 mg tablet Take 10 mg by mouth three times a day as needed. (Patient not taking: Reported on 04/16/2024) FAMILY HISTORY Problem Relation Age of Onset None Father None Mother Cancer Maternal Grandmother throat Alzheimer's Disease Maternal Grandmother None Sister None Brother None Brother None Brother None Brother None Sister None Sister None Sister Social History Tobacco Use Smoking status: Never Smokeless tobacco: Never Substance Use Topics Alcohol use: No Drug use: No Review of Systems Constitutional: Positive for chills, fever and malaise/fatigue. HENT: Negative for congestion, ear pain, nosebleeds and sore throat. Respiratory: Positive for shortness of breath. Negative for cough and wheezing. Cardiovascular: Negative for chest pain. Gastrointestinal: Positive for nausea and vomiting. Negative for abdominal pain, constipation and diarrhea. Musculoskeletal: Negative for neck pain. Skin: Negative for itching and rash. Objective Blood pressure 120/78, pulse 85, temperature 36.1 ?C (96.9 ?F), resp. rate 20, weight 54.5 kg (120 lb 2.4 oz), SpO2 98%. Physical Exam Constitutional: General: He is not in acute distress. Appearance: Normal appearance. He is not toxic-appearing. HENT: Mouth/Throat: Lips: [place]. Mouth: Mucous membranes are moist. Cardiovascular: Rate and Rhythm: Normal rate and regular rhythm. Heart sounds: Normal heart sounds. Pulmonary: Effort: Pulmonary effort is normal. Breath sounds: Normal breath sounds. Abdominal: General: Bowel sounds are normal. Palpations: Abdomen is soft. Tenderness: There is no abdominal tenderness. Lymphadenopathy: Cervical: No cervical adenopathy. Right cervical: No superficial cervical adenopathy. Skin: General: Skin is warm and dry. ASSESSMENT/PLAN: 1. Nausea and vomiting, unspecified vomiting type - ICD9: 787.01, ICD10: R11.2 (primary diagnosis) Viral syndrome Brat diet discussed F/u for worsening or continued s/s -If you experience chest pain/shortness of breath go to ER - ONDANSETRON 4 MG DISINTEGRATING TABLET 2. Muscle ache - ICD9: 729.1, ICD10: M79.10 - CYCLOBENZAPRINE 10 MG TABLET Scot Valdez [facility] History of Present illness Narrative* Scot Valdez APRN.MYLA - 04/16/2024 4:09 PM EST Subjective HPI HPI Jez Haider is a 23 year old male who presents today for CC of vomiting, body aches, sob. This started 1 day ago. Has tried otc medication for relief. Symptoms are worsened by nothing. Deniescough, cp, fever. Last void few hours ago. Seen in ER last night for these s/s, dx viral. .Patient presents with: Nausea & Vomiting: Sob x 1 day PAST MEDICAL HISTORY Diagnosis Date Cerebral palsy (HCC) PAST SURGICAL HISTORY Procedure Laterality Date LEG SURGERY HX x4 S TENDON - ACHILLES Bilateral 01/30/2018 [facility] ALLERGIES Latex MEDICATIONS hydrocortisone (ANUSOL-HC) 2.5 % rectal cream ondansetron orally disintegrating (ZOFRAN ODT) 4 mg disintegrating tablet Take 1 tablet by mouth every 6 hours as needed. cyclobenzaprine (FLEXERIL) 10 mg tablet Take 1 tablet by mouth three times a day as needed. cyclobenzaprine (FLEXERIL) 10 mg tablet Take 10 mg by mouth three times a day as needed. (Patient not taking: Reported on 04/16/2024) FAMILY HISTORY Problem Relation Age of Onset None Father None Mother Cancer Maternal Grandmother throat Alzheimer's Disease Maternal Grandmother None Sister None Brother None Brother None Brother None Brother None Sister None Sister None Sister Social History Tobacco Use Smoking status: Never Smokeless tobacco: Never Substance Use Topics Alcohol use: No Drug use: No Review of Systems Constitutional: Positive for chills, fever and malaise/fatigue. HENT: Negative for congestion, ear pain, nosebleeds and sore throat. Respiratory: Positive for shortness of breath. Negative for cough and wheezing. Cardiovascular: Negative for chest pain. Gastrointestinal: Positive for nausea and vomiting. Negative for abdominal pain, constipation and diarrhea. Musculoskeletal: Negative for neck pain. Skin: Negative for itching and rash. Objective Blood pressure 120/78, pulse 85, temperature 36.1 C (96.9 F), resp. rate 20, weight 54.5 kg (120 lb2.4 oz), SpO2 98%. Physical Exam Constitutional: General: He is not in acute distress. Appearance: Normal appearance. He is not toxic-appearing. HENT: Mouth/Throat: Lips: [place]. Mouth: Mucous membranes are moist. Cardiovascular: Rate and Rhythm: Normal rate and regular rhythm. Heart sounds: Normal heart sounds. Pulmonary: Effort: Pulmonary effort is normal. Breath sounds: Normal breath sounds. Abdominal: General: Bowel sounds are normal. Palpations: Abdomen is soft. Tenderness: There is no abdominal tenderness. Lymphadenopathy: Cervical: No cervical adenopathy. Right cervical: No superficial cervical adenopathy. Skin: General: Skin is warm and dry. ASSESSMENT/PLAN: 1. Nausea and vomiting, unspecified vomiting type - ICD9: 787.01, ICD10: R11.2 (primary diagnosis) Viral syndrome Brat diet discussed F/u for worsening or continued s/s -If you experience chest pain/shortness of breath go to ER - ONDANSETRON 4 MG DISINTEGRATING TABLET 2. Muscle ache - ICD9: 729.1, ICD10: M79.10 - CYCLOBENZAPRINE 10 MG TABLET Scot Valdez APRN.CNP documented in this encounterW[facility]-14-[facility]24 Instructions* Patient Instructions* Bushra Olivares APRN.CNP - 10/23/2023 5:49 PM EDT ASSESSMENT/PLAN: 1. Strep throat - ICD9: 034.0, ICD10: J02.0 (primary diagnosis) - Amoxicillin for 10 days. - Discussed supportive care treatment with fluids, rest and analgesia. - The patient may also use warm salt water gargles, throat lozenges and/or OTC throat spray as needed. - Contagious dz precautions discussed- including considered contagious until on antibiotics for 24 hours - Call back if drooling, increased temperature, symptoms of dehydration and/or still sick in one week - AMOXICILLIN 500 MG CAPSULE 2. Viral URI with cough - ICD9: 465.9, ICD10: J06.9 - Discussed viral etiology and rationale for treatment. - Symptomatic treatment with prn analgesia - Supportive care with fluids and rest 3. Sore throat - ICD9: 462, ICD10: J02.9 - Group A strep molecular testing positive - STREP A MOLECULAR (POC) - Follow-up with your PCP in 3-5 days if symptoms have not improved or sooner if symptoms worsen - Discussed red flags and need for immediate medical evaluation if any occur. - Discussed supportive care treatment with fluids, rest and analgesia. - Discussed expected course of illness Bushra Olivares APRN.CNP What is strep throat? Strep throat is an infection caused by a specific type of bacteria, Streptococcus. When your child has a strep throat, the tonsils are usually very inflamed, and the inflammation may affect the surrounding part of the throat as well. Symptoms Strep throat is caused by a bacterium called Streptococcus pyogenes. To some extent, the symptoms of strep throat depend on the child s age. Infants with strep infections may have only a low fever and a thickened or bloody nasal discharge. Toddlers (ages one to three) also may have a thickened or bloody nasal discharge with a fever. Suchchildren are usually quite cranky, have no appetite, and often have swollen glands in the neck. Sometimes toddlers will complain of tummy pain instead of a sore throat. Children over three years of age with strep are often more ill; they may have an extremely painful throat, fever over 102 degrees Fahrenheit (38.9 degrees Celsius), swollen glands in the neck, and pus on the tonsils. It s important to be able to distinguish a strep throat from a viral sore throat, because strep infections are treated with antibiotics. When to call the school standards coach If your child has a sore throat that persists (not one that goes away after her first drink in the morning), whether or not it is accompanied by fever, headache, stomachache, or extreme fatigue, you should call your school standards coach. That call should be made even more urgently if your child seems extremely ill, or if she has difficulty breathing or extreme trouble swallowing (causing her to drool). This may indicate a more serious infection. Treatment If the strep test shows that your child does have strep throat, your school standards coach will prescribe anantibiotic to be taken by mouth or by injection. If your child is given the oral medication, it s very important that she take it for the full course, as prescribed, even if the symptoms get better or go away. If a child s strep throat is not treated with antibiotics, or if she doesn t complete the treatment, the infection may worsen or spread to other parts of her body, leading to conditions such as abscesses of the tonsils or kidney problems. Untreated strep infections also can lead to rheumatic fever, a disease that affects the heart. However, rheumatic fever is rare in the [place] and in children under five years old. Prevention Most types of throat infections are contagious, being passed primarily through the air on droplets of moisture or on the hands of infected children or adults. For that reason, it makes sense to keep your child away from people who have symptoms of this condition. However, most people are contagious before their first symptoms appear, so often there sreally no practical way to prevent your child from rush the disease. In the past when a child had several sore throats, her tonsils might have been removed in an attempt to prevent further infections. But this operation, called a tonsillectomy, is recommended today only for the most severely affected children. Even in difficult cases, where there is repeated strep throat, antibiotic treatment is usually the best solution. documented in this encounterWright[facility]05-14-2024 NoteHNO ID: [id number] Author: BUSHRA OLIVARES APRN.[employer] Service: ? Author Type: Nurse Practitioner Type: Progress Notes Filed: 10/23/2023 17:51 Note Text: Subjective Cough Associated symptoms include sore throat. Pertinent negatives include no chills, no ear pain, no headaches and no myalgias. Jez Haider is a 23 year old male who presents with cough, congestion, sore throat, body aches, feeling tired, and decreased appetite. He has not had a fever. He has not had any known sick contacts. He has not taken any medication today. States his throat feels swollen and congested. Review of Systems Constitutional: Positive for malaise/fatigue. Negative for chills and fever. HENT: Positive for congestion and sore throat. Negative for ear pain. Respiratory: Positive for cough. Cardiovascular: Negative. Gastrointestinal: Negative for abdominal pain, diarrhea, nausea and vomiting. Musculoskeletal: Negative for myalgias. Neurological: Negative for headaches. BP 145/76 Pulse 95 Temp 37.1 ?C (98.8 ?F) Resp 18 Wt 54.2 kg (119 lb 7.8 oz) SpO2 97% BMI 18.71 kg/m? PAST MEDICAL HISTORY Diagnosis Date Cerebral palsy (HCC) PAST SURGICAL HISTORY Procedure Laterality Date LEG SURGERY HX x4 S TENDON - ACHILLES Bilateral 01/30/2018 [facility] ALLERGIES Latex MEDICATIONS cyclobenzaprine (FLEXERIL) 10 mg tablet Take 10 mg by mouth three times a day as needed. FAMILY HISTORY Problem Relation Age of Onset None Father None Mother Cancer Maternal Grandmother throat Alzheimer's Disease Maternal Grandmother None Sister None Brother None Brother None Brother None Brother None Sister None Sister None Sister Social History Tobacco Use Smoking status: Never Smokeless tobacco: Never Substance Use Topics Alcohol use: No Drug use: No Objective Physical Exam Vitals and nursing note reviewed. Constitutional: General: He is not in acute distress. Appearance: Normal appearance. He is not ill-appearing. HENT: Right Ear: Tympanic membrane, ear canal and external ear normal. Left Ear: Tympanic membrane, ear canal and external ear normal. Nose: Congestion present. Mouth/Throat: Mouth: Mucous membranes are moist. Pharynx: Uvula midline. Posterior oropharyngeal erythema present. No oropharyngeal exudate. Cardiovascular: Rate and Rhythm: Normal rate and regular rhythm. Heart sounds: Normal heart sounds. Pulmonary: Effort: Pulmonary effort is normal. No respiratory distress. Breath sounds: Normal breath sounds. No wheezing or rales. Musculoskeletal: Cervical back: Neck supple. Lymphadenopathy: Cervical: No cervical adenopathy. Skin: General: Skin is warm and dry. Findings: No erythema or rash. Neurological: Mental Status: He is alert. ASSESSMENT/PLAN: 1. Strep throat - ICD9: 034.0, ICD10: J02.0 (primary diagnosis) - Amoxicillin for 10 days. - Discussed supportive care treatment with fluids, rest and analgesia. - The patient may also use warm salt water gargles, throat lozenges and/or OTC throat spray as needed. - Contagious dz precautions discussed- including considered contagious until on antibiotics for 24 hours - Call back if drooling, increased temperature, symptoms of dehydration and/or still sick in one week - AMOXICILLIN 500 MG CAPSULE 2. Viral URI with cough - ICD9: 465.9, ICD10: J06.9 - Discussed viral etiology and rationale for treatment. - Symptomatic treatment with prn analgesia - Supportive care with fluids and rest 3. Sore throat - ICD9: 462, ICD10: J02.9 - Group A strep molecular testing positive - STREP A MOLECULAR (POC) - Follow-up with your PCP in 3-5 days if symptoms have not improved or sooner if symptoms worsen - Discussed red flags and need for immediate medical evaluation if any occur. - Discussed supportive care treatment with fluids, rest and analgesia. - Discussed expected course of illness Bushra Olivares APRN.[facility]05-14-2024 History of Present illness Narrative* Bushra Olivares APRN.[employer] - 10/23/2023 5:26 PM EDT Subjective Cough Associated symptoms include sore throat. Pertinent negatives include no chills, no ear pain, no headaches and no myalgias. Jez Haider is a 23 year old male who presents with cough, congestion, sore throat, body aches,feeling tired, and decreased appetite. He has not had a fever. He has not had any known sick contacts. He has not taken any medication today. States his throat feels swollen and congested. Review of Systems Constitutional: Positive for malaise/fatigue. Negative for chills and fever. HENT: Positive for congestion and sore throat. Negative for ear pain. Respiratory: Positive for cough. Cardiovascular: Negative. Gastrointestinal: Negative for abdominal pain, diarrhea, nausea and vomiting. Musculoskeletal: Negative for myalgias. Neurological: Negative for headaches. BP 145/76 Pulse 95 Temp 37.1 C (98.8 F) Resp 18 Wt 54.2 kg (119 lb 7.8 oz) SpO2 97% BMI18.71 kg/m PAST MEDICAL HISTORY Diagnosis Date Cerebral palsy (HCC) PAST SURGICAL HISTORY Procedure Laterality Date LEG SURGERY HX x4 S TENDON - ACHILLES Bilateral 01/30/2018 [facility] ALLERGIES Latex MEDICATIONS cyclobenzaprine (FLEXERIL) 10 mg tablet Take 10 mg by mouth three times a day as needed. FAMILY HISTORY Problem Relation Age of Onset None Father None Mother Cancer Maternal Grandmother throat Alzheimer's Disease Maternal Grandmother None Sister None Brother None Brother None Brother None Brother None Sister None Sister None Sister Social History Tobacco Use Smoking status: Never Smokeless tobacco: Never Substance Use Topics Alcohol use: No Drug use: No Objective Physical Exam Vitals and nursing note reviewed. Constitutional: General: He is not in acute distress. Appearance: Normal appearance. He is not ill-appearing. HENT: Right Ear: Tympanic membrane, ear canal and external ear normal. Left Ear: Tympanic membrane, ear canal and external ear normal. Nose: Congestion present. Mouth/Throat: Mouth: Mucous membranes are moist. Pharynx: Uvula midline. Posterior oropharyngeal erythema present. No oropharyngeal exudate. Cardiovascular: Rate and Rhythm: Normal rate and regular rhythm. Heart sounds: Normal heart sounds. Pulmonary: Effort: Pulmonary effort is normal. No respiratory distress. Breath sounds: Normal breath sounds. No wheezing or rales. Musculoskeletal: Cervical back: Neck supple. Lymphadenopathy: Cervical: No cervical adenopathy. Skin: General: Skin is warm and dry. Findings: No erythema or rash. Neurological: Mental Status: He is alert. ASSESSMENT/PLAN: 1. Strep throat - ICD9: 034.0, ICD10: J02.0 (primary diagnosis) - Amoxicillin for 10 days. - Discussed supportive care treatment with fluids, rest and analgesia. - The patient may also use warm salt water gargles, throat lozenges and/or OTC throat spray as needed. - Contagious dz precautions discussed- including considered contagious until on antibiotics for 24 hours - Call back if drooling, increased temperature, symptoms of dehydration and/or still sick in one week - AMOXICILLIN 500 MG CAPSULE 2. Viral URI with cough - ICD9: 465.9, ICD10: J06.9 - Discussed viral etiology and rationale for treatment. - Symptomatic treatment with prn analgesia - Supportive care with fluids and rest 3. Sore throat - ICD9: 462, ICD10: J02.9 - Group A strep molecular testing positive - STREP A MOLECULAR (POC) - Follow-up with your PCP in 3-5 days if symptoms have not improved or sooner if symptoms worsen - Discussed red flags and need for immediate medical evaluation if any occur. - Discussed supportive care treatment with fluids, rest and analgesia. - Discussed expected course of illness Bushra Olivares APRN.[employer] documented in this encounterWright-[facility]04-16-2024 NoteHNO ID: [id number] Author: ADAM CHANDLER APRN.[employer] Service: ? Author Type: Nurse Practitioner Type: Progress Notes Filed: 09/25/2023 15:47 Note Text: Subjective HPI Nontoxic male presents urgent care chief complaint fatigue muscle aches sore throat headache. Duration of symptoms 3 days. Associate symptoms listed above. Most prominent symptom today is sore throat. Sick contacts work similar signs symptoms no difficulty swallowing and secretions decreased range of motion of neck. Denies any fever body aches chills productive cough chest pain shortness of breath pleuritic pain hemoptysis nausea vomiting abdominal pain change in bowel or bladder habits. Past medical history prescription medication use and allergies reviewed. .Patient presents with: Fatigue: Muscle cramps, congested in throat, muscle cramps, headache x 3 days PAST MEDICAL HISTORY Diagnosis Date Cerebral palsy (HCC) PAST SURGICAL HISTORY Procedure Laterality Date LEG SURGERY HX x4 S TENDON - ACHILLES Bilateral 01/30/2018 [facility] ALLERGIES Latex MEDICATIONS cyclobenzaprine (FLEXERIL) 10 mg tablet Take 10 mg by mouth three times a day as needed. FAMILY HISTORY Problem Relation Age of Onset None Father None Mother Cancer Maternal Grandmother throat Alzheimer's Disease Maternal Grandmother None Sister None Brother None Brother None Brother None Brother None Sister None Sister None Sister Social History Tobacco Use Smoking status: Never Smokeless tobacco: Never Substance Use Topics Alcohol use: No Drug use: No BP 144/83 Pulse 98 Temp 36.7 ?C (98 ?F) Resp 20 Wt 54 kg (119 lb 0.8 oz) SpO2 99% BMI 18.65 kg/m? Review of Systems Constitutional: Positive for malaise/fatigue. Negative for chills and fever. HENT: Positive for sore throat. Negative for congestion, ear discharge, ear pain and sinus pain. Eyes: Negative for blurred vision, pain, discharge and redness. Respiratory: Negative for cough, hemoptysis, sputum production, shortness of breath, wheezing and stridor. Cardiovascular: Negative for chest pain. Gastrointestinal: Negative for abdominal pain, diarrhea, nausea and vomiting. Musculoskeletal: Positive for myalgias. Skin: Negative for itching and rash. Neurological: Positive for headaches. Negative for dizziness. Objective Physical Exam Constitutional: General: He is not in acute distress. Appearance: He is not diaphoretic. HENT: Head: Normocephalic. Jaw: No trismus, tenderness, swelling or pain on movement. Right Ear: Tympanic membrane, ear canal and external ear normal. Left Ear: Tympanic membrane, ear canal and external ear normal. Nose: Nose normal. Mouth/Throat: Mouth: Mucous membranes are moist. Pharynx: Oropharynx is clear. Uvula midline. Posterior oropharyngeal erythema present. No pharyngeal swelling, oropharyngeal exudate or uvula swelling. Tonsils: No tonsillar abscesses. Eyes: Conjunctiva/sclera: Conjunctivae normal. Pupils: Pupils are equal, round, and reactive to light. Cardiovascular: Rate and Rhythm: Normal rate and regular rhythm. Heart sounds: Normal heart sounds. Pulmonary: Effort: Pulmonary effort is normal. No tachypnea, accessory muscle usage or respiratory distress. Breath sounds: Normal breath sounds. No stridor. No wheezing, rhonchi or rales. Abdominal: General: There is no distension. Palpations: Abdomen is soft. Tenderness: There is no abdominal tenderness. There is no guarding or rebound. Musculoskeletal: Cervical back: Normal range of motion and neck supple. No edema, erythema, rigidity or tenderness. No pain with movement. Normal range of motion. Lymphadenopathy: Cervical: No cervical adenopathy. Skin: General: Skin is warm and dry. Neurological: Mental Status: He is alert and oriented to person, place, and time. ASSESSMENT/PLAN: 1. Pharyngitis, unspecified etiology - ICD9: 462, ICD10: J02.9 (primary diagnosis) 2. Strep throat - ICD9: 034.0, ICD10: J02.0 Strep test positive. Diagnosis strep pharyngitis. Placed on amoxicillin. Patient was educated on supportive therapies. Patient will follow up with primary care provider as needed. Patient was instructed to immediately proceed to emergency room for any new, worsening, or symptoms lasting longer than anticipated. The patient's clinical presentation is otherwise unremarkable at this time. Based on exam and clinical finding, the patient is stable for discharge. Plan of care was discussed with patient. Patient verbalizes understanding and agrees to plan of care. This note was generated using Programeter software. It may contain errors in wording, punctuation, or spelling. Adam Chandler APRN.[facility]04-16-2024 History of Present illness Narrative* Adam Chandler APRN.[employer] - 09/25/2023 3:31 PM EDT Subjective HPI Nontoxic male presents urgent care chief complaint fatigue muscle aches sore throat headache. Duration of symptoms 3 days. Associate symptoms listed above. Most prominent symptom today is sore throat. Sick contacts work similar signs symptoms no difficulty swallowing and secretions decreased range of motion of neck. Denies any fever body aches chills productive cough chest pain shortness of breath pleuritic pain hemoptysis nausea vomiting abdominal pain change in bowel or bladder habits. Past medical history prescription medication use and allergies reviewed. .Patient presents with: Fatigue: Muscle cramps, congested in throat, muscle cramps, headache x 3 days PAST MEDICAL HISTORY Diagnosis Date Cerebral palsy (HCC) PAST SURGICAL HISTORY Procedure Laterality Date LEG SURGERY HX x4 S TENDON - ACHILLES Bilateral 01/30/2018 [facility] ALLERGIES Latex MEDICATIONS cyclobenzaprine (FLEXERIL) 10 mg tablet Take 10 mg by mouth three times a day as needed. FAMILY HISTORY Problem Relation Age of Onset None Father None Mother Cancer Maternal Grandmother throat Alzheimer's Disease Maternal Grandmother None Sister None Brother None Brother None Brother None Brother None Sister None Sister None Sister Social History Tobacco Use Smoking status: Never Smokeless tobacco: Never Substance Use Topics Alcohol use: No Drug use: No BP 144/83 Pulse 98 Temp 36.7 C (98 F) Resp 20 Wt 54 kg (119 lb 0.8 oz) SpO2 99% BMI 18.65 kg/m Review of Systems Constitutional: Positive for malaise/fatigue. Negative for chills and fever. HENT: Positive for sore throat. Negative for congestion, ear discharge, ear pain and sinus pain. Eyes: Negative for blurred vision, pain, discharge and redness. Respiratory: Negative for cough, hemoptysis, sputum production, shortness of breath, wheezing and stridor. Cardiovascular: Negative for chest pain. Gastrointestinal: Negative for abdominal pain, diarrhea, nausea and vomiting. Musculoskeletal: Positive for myalgias. Skin: Negative for itching and rash. Neurological: Positive for headaches. Negative for dizziness. Objective Physical Exam Constitutional: General: He is not in acute distress. Appearance: He is not diaphoretic. HENT: Head: Normocephalic. Jaw: No trismus, tenderness, swelling or pain on movement. Right Ear: Tympanic membrane, ear canal and external ear normal. Left Ear: Tympanic membrane, ear canal and external ear normal. Nose: Nose normal. Mouth/Throat: Mouth: Mucous membranes are moist. Pharynx: Oropharynx is clear. Uvula midline. Posterior oropharyngeal erythema present. No pharyngeal swelling, oropharyngeal exudate or uvula swelling. Tonsils: No tonsillar abscesses. Eyes: Conjunctiva/sclera: Conjunctivae normal. Pupils: Pupils are equal, round, and reactive to light. Cardiovascular: Rate and Rhythm: Normal rate and regular rhythm. Heart sounds: Normal heart sounds. Pulmonary: Effort: Pulmonary effort is normal. No tachypnea, accessory muscle usage or respiratory distress. Breath sounds: Normal breath sounds. No stridor. No wheezing, rhonchi or rales. Abdominal: General: There is no distension. Palpations: Abdomen is soft. Tenderness: There is no abdominal tenderness. There is no guarding or rebound. Musculoskeletal: Cervical back: Normal range of motion and neck supple. No edema, erythema, rigidity or tenderness. No pain with movement. Normal range of motion. Lymphadenopathy: Cervical: No cervical adenopathy. Skin: General: Skin is warm and dry. Neurological: Mental Status: He is alert and oriented to person, place, and time. ASSESSMENT/PLAN: 1. Pharyngitis, unspecified etiology - ICD9: 462, ICD10: J02.9 (primary diagnosis) 2. Strep throat - ICD9: 034.0, ICD10: J02.0 Strep test positive. Diagnosis strep pharyngitis. Placed on amoxicillin. Patient was educated on supportive therapies. Patient will follow up with primary care provider as needed. Patient was instructed to immediately proceed to emergency room for any new, worsening, or symptoms lasting longer thananticipated. The patient's clinical presentation is otherwise unremarkable at this time. Based on exam and clinical finding, the patient is stable for discharge. Plan of care was discussed with patient. Patient verbalizes understanding and agrees to plan of care. This note was generated using Programeter software. It may contain errors in wording, punctuation, or spelling. Adam Chandler APRN.[employer] documented in this encounterW[facility]03-06-2024 Discharge summary Author Xu Gordon [facility] August 15, 2023 9:25pm Note Date/Time August 15, 2023 9:25 pm [facility] Medical Records Department [address] [place] [address] Emergency Department Summary 08/15/23 MR#: [id number] Acct: [id number] Name: JEZ HAIDER Rep #:[id number] : 2000 23 From: Xu Gordon MD PCP: Dr. Adam Paiz MD Status:REG ER Location: ED HPI History of Present Illness Chief Complaint: Upper Extremity Injury Narrative Narrative: 23-year-old male who denies significant past medical history presents with 3 weeks of right fourth and fifth digit numbness and may be some in his third digit of his right hand. He is right-hand dominant. While he denies any injury, he states that it is worse when he bowls and cups his right wrist. Also, when he is at work and is trying to lift things above his head, he can getnumbness of his fingers especially fourth and fifth digits. He noticed that it was going more into his wrist over the last few days. He denies any fevers or chills, numbness is worse with movement. [facility] Medical History Cerebral palsy Herniated lumbar disc without myelopathy Migraines Home Medications ondansetron 4 mg disintegrating tablet 4 mg PO Q8H PRN PRN Nausea #5 tabs 07/07/23 [Rx Last Taken Unknown] Allergy/AdvReac Type Severity Reaction Status Date / Time latex Allergy Hives Verified 08/15/23 20:56 adhesive tape AdvReac Rash Verified 08/15/23 20:56 Surgical History History of appendectomy Social History Smoking Status: Never smoker alcohol intake: never substance use type: does not use ROS ROS ED ROS Narrative Constitutional: No fever, no chills. HEENT: No sore throat. No neck pain. No loss of vision. No rhinorrhea. Cardiovascular: No chest pain. No palpitations. No pedal edema. Respiratory: No cough, no shortness of breath. Abdominal: No abdominal pain. No nausea. No vomiting. Genitourinary: No dysuria. No hematuria. Musculoskeletal: No myalgias. No arthralgias. Neurologic: No headaches. No dizziness. No lightheadedness. Paresthesias and numbness of fourth and fifth digits on right hand and somewhat in his third digit. Numbness worsened with flexion of the right wrist. Skin: No rash. No change in color. Psychiatric: No depression. No anxiety. EXAM Physical Exam Narrative Exam Narrative: Afebrile. Vital signs noted. HEENT: Normocephalic. Atraumatic. PERRL, EOMI. Neck soft and supple. No pointtenderness or step off. Cardiovascular: Regular rate and rhythm. No murmurs, rubs, or gallops appreciated. Respiratory: No tachypnea. Lungs clear to auscultation bilaterally. Gastrointestinal: Abdomen soft, nontender, with normoactive bowel sounds. No rebound or guarding. Neurological: Awake. Alert. Nonfocal, nonlateralizing. Subjective numbness of fourth and fifth digits on right hand. Full range of motion of fingers including abduction and abduction. Good capillary refill of fingers. Flexion extension of wrist intact. Palpable radial pulse. Skin: No rash. Normal color. No pallor. Musculoskeletal: No pedal edema. Full range of motion extremities. Const Vital Signs: 08/15/23 20:52 Temperature 97.9 F Temperature Source Oral Pulse Rate 79 Respiratory Rate 18 Blood Pressure 109/59 L Blood Pressure Mean 75 Pulse Ox 97 Oxygen Delivery Method Room Air MDM MDM MDM Narrative Medical decision making narrative: Given his paresthesia distribution, I do feel he probably has ulnar nerve compression possibly in the wrist as it is whenever he flexes when he is bowlingthat is worsened. I do not feel laboratory work is indicated. He will be placed in a cock up wrist splint and told to continue elevation and rest of his right wrist as he may have more of a tendinitis/bursitis in his wrist as well. He will follow-up with his primary care provider for possible outpatient imagingversus physical therapy. He may need referral to a hand specialist as well. Atthis point in time, as his symptoms have been ongoing for 3 to 4 weeks, I feel he can be discharged to follow-up. He will take noml-hin-fvfgsck naproxen as needed. Return instructions to the emergency department were reviewed. Disposition is discharged home in stable condition. 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 Take ibuprofen or naproxen as directed. Follow-up with your primary care provider. You may need outpatient imaging or referralto a hand specialist for the numbness in your fourth and fifth fingers. Disposition Disposition: Home, Self Care What to do if you have Problems For any increased pain, shortness of breath, bleeding, nausea or vomiting, chestpain, or any unexpected problems, contact your Primary Care Provider. Call [facility] ([phone]) or report to the closest Emergency Room. Call 911 if necessary. 08/15/232124 <Electronically signed by Xu Gordon MD> Cosigner Signature (if applicable): CC: Dr. Adam Paiz MD ~ Signed [facility] Work Phone: 1(726) 304-100511-30-2023 Emergency department Note* Marcy Galeas PA-C - 05/10/2023 1:57 AM EST HPI Chief Complaint Patient presents with Shoulder [...] of the right upper extremity, negative anatomic snuffboxtenderness. NVI Skin: General: Skin is warm. Capillary [...] for follow-up as well and he expressed understandi ng and agreed with the plan of care today. Labs Reviewed - No data to display XR shoulder right 2+ views Final Result No acute osseous abnormality. MACRO: None Signed by: Stephanie Emery 05/10/2023 2:55 AM Dictation workstation: [id number] XR wrist right 3+ views Final Result No acute osseous abnormality. MACRO: None Signed by: Stephanie Emery 05/10/2023 2:54 AM Dictation workstation: [id number] Procedure Procedures Marcy Galeas PA-C 05/10/23 0301 documented in this [facility] Work Phone: 1(198) 691-379211-30-2023 Physician Emergency department Note* Marcy Galeas PA-C - 05/10/2023 1:57 AM EST HPI Chief Complaint Patient presents with Shoulder [...] of the right upper extremity, negative anatomic snuffboxtenderness. NVI Skin: General: Skin is warm. Capillary [...] for follow-up as well and he expressed understandi ng and agreed with the plan of care today. Labs Reviewed - No data to display XR shoulder right 2+ views Final Result No acute osseous abnormality. MACRO: None Signed by: Stephanie Emery 05/10/2023 2:55 AM Dictation workstation: [id number] XR wrist right 3+ views Final Result No acute osseous abnormality. MACRO: None Signed by: Stephanie Emery 05/10/2023 2:54 AM Dictation workstation: [id number] Procedure Procedures Marcy Galeas PA-C 05/10/[address] [facility] Work Phone: 1(885) 858-302810-04-2023 Discharge summary Author Boris Beckford [facility] March 14, 2023 10:24pm Note Date/Time March 14, 2023 10 :24pm [facility] Medical Records Department [address] [place] [address] Emergency Department Summary 03/14/23 MR#: [id number] Acct: [id number] Name: JEZ HAIDER Rep #:[id number] : 2000 22 From: Boris Beckford MD PCP: Dr. Adam Paiz MD Status:PRE ER Location: ED HPI History of Present Illness Chief Complaint: Upper Extremity Injury Informant: patient Narrative Narrative: Complains of left shoulder pain. Patient was playing wheelchair football on Sunday. He only is in a wheelchair for sports. Other than that he walks around without the chair. He states he isnot sure if he hit into somebody or somebody's chair hitting the shoulder but hedid collide with somebody. Shoulder on the left was pulled back a bit. Its been sore ever since. If he does overhead motion he will sometimes get some popping and clicking. No numbness tingling or weakness. He took Motrin and that does help. But he is just concerned because it several days later and it still bothering him. No other injuries or areas of pain. No numbness or tingling distally. No chest pain or trouble breathing. PFSH PFS Medical History Cerebral palsy Herniated lumbar disc without myelopathy Migraines Home Medications lidocaine-hyaluronic ac-aloe vera-collagen 2 % topical spray gel 1 spray topicalTID PRN pain #120 mL 01/31/23 [Rx Last Taken Unknown] Allergy/AdvReac Type Severity Reaction Status Date / Time latex Allergy Hives Verified 03/14/23 21:01 adhesive tape AdvReac Rash Verified 03/14/23 21:01 Surgical History History of appendectomy Social History Smoking Status: Never smoker alcohol intake: never substance use type: does not use ROS ROS ED Constitutional Constitutional ED: Denies chills, fever(s) or subjective Cardiovascular Cardiovascular: Denies chest pain or palpitations Respiratory/Chest Respiratory/Chest: Denies cough or dyspnea Gastrointestinal Gastrointestinal: Denies nausea or vomiting Musculoskeletal Musculoskeletal: Reports other Details: See history of present illness. ; Denies back pain, myalgias or neck pain Integumentary Denies abscess, Abrasions or rash Neurologic Neurologic: Denies paresthesias or weakness Hematologic/Lymphatic Hematologic/Lymphatic: Denies easy bleeding or easy bruising Allergic/Immunologic Allergic/Immunologic ED: Denies urticaria EXAM Physical Exam Narrative Exam Narrative: : Patient sitting calmly in the bed in no acute distress. Carries on normal conversation. HEENT: Shows no sign of trauma. Cardiorespiratory shows easy unlabored breathing normal heart rate. Saturationsare normal at 97% on room air showing no hypoxia. Abdomen is nontender. Extremities there is no deformity. He actually has pretty good range of motion of his left shoulder including behind his back. There is some mild nonfocal tenderness. No real AC joint tenderness or swelling. The shoulder does not seem swollen bruised or abraded. Is not warm. No tenderness along the clavicle. No tenderness along the scapula. He does has more pain with reachingforward and abduction especially as he gets overhead. Distal pulses sensation and cad designer strength are normal. Const Vital Signs: 03/14/23 20:59 Temperature 97.8 F Temperature Source Temporal Pulse Rate 86 Respiratory Rate 15 Blood Pressure 129/70 H Blood Pressure Mean 89 Pulse Ox 97 Oxygen Delivery Method Room Air MDM MDM MDM Narrative Medical decision making narrative: My independent interpretation the patient's 4 view x-ray of his left shoulder shows no acute fracture or dislocation. Included portions of the chest show no acute abnormality or pneumothorax. No abnormal calcifications. Final reading by radiology is normal x-ray examination of the shoulder. Patient will continue Motrin as needed. Ice. I will give him a sling. I stated he can use this as he did want 1. But he needs to come out of it at least 6-8 times a day for range of motion. I demonstrated good exercises for range of motion. If he develops any worsening symptoms pain new symptoms or concerns he should return. If it is still bothering him in a couple weeks it may be worth repeat x-ray. This is likely rotator cuff type strain from the injury. Radiography Diagnostic Testing: Clinical Impression(s) from Imaging Studies Shoulder X-Ray 03/14/23 21:04 IMPRESSION: Normal x-ray examination of the shoulder. Electronically Signed: Adam Mcallister MD at 21:26 EDT , Discharge Plan Triage Chief Complaint: Upper Extremity Injury ED Provider: Boris Beckford Dx/Rx/DC Orders Clinical Impression: Rotator cuff arthropathy of left shoulder, Contusion of left shoulder Instructions: ED Shoulder Sprain Prescriptions: No Action lidocaine-hyalur pe-umjv-kuum 2 % spray gel 1 spray topical TID PRN (Reason: pain) Qty: 120 0RF Primary Care Provider: Adam Paiz Referrals: Adam Paiz MD [Primary Care Provider] - 10-14 Days if not better Activity Restrictions/Additional Instructions: Only use sling for a few days. During that time you need to come out of the sling at least 6-8 times a day and do range of motion as demonstrated Disposition Disposition: Home, Self Care What to do if you have Problems For any increased pain, shortness of breath, bleeding, nausea or vomiting, chestpain, or any unexpected problems, contact your Primary Care Provider. Call [employer] [facility] ([phone]) or report to the closest Emergency Room. Call 911 if necessary. 10/04/23 2224 <Electronically signed by Boris Beckford MD> Cosigner Signature (if applicable): CC: Dr. Adam Paiz MD ~ Signed [facility] Work Phone: 1(803) 645-625310-04-2023 Hospital Discharge instructions Additional Instructions Only use sling for a few days. During that time you need to come out of the sling at least 6-8 times a day and do range of motion as demonstrated[facility] Work Phone: 1(125) 445-297109-25-2023 History of Present illness Narrative* Rodolfo Nicholson MD - 03/05/2023 1:50 PM EDT Patient presents with: Pain: Chronic widespread pain, [...] PCP. Rodolfo Nicholson MD documented in this encounterW[facility]06[facility] History of Present illness Narrative* Alicia Isidro APRN.ASSISTANT TENNIS COACH - 12/05/2022 4:52 PM EDT CC: Patient presents with: Cough: Cough and [...] x4 S TENDON - ACHILLES Bilateral 01/30/2018 [facility] ALLERGIES Latex MEDICATIONS tiZANidine (ZANAFLEX) 4 [...] plan. Alicia Isidro APRN.MYLA documented in this encounterWright-Pat[facility]06-05-2023 Emergency department Note * Lenka Kumar RN - 11/13/2022 1:34 PM EDT Patient discharged in no noted distress with script to his pharmacy and PCP follow up. Lenka Kumar RN 11/13/22 1338 [id number] Emergency department Note* Lenka Kumar RN - 11/13/2022 1:34 PM EDT Patient discharged in no noted distress with script to his pharmacy and PCP follow up. Lenka Kumar RN 11/13/22 0673 * Yamila Torres MD - 11/13/2022 10:49 AM EDT EMERGENCY DEPARTMENT ENCOUNTER Pt Name: Jez Haider [...] kidney stones or infections. Denies any lower abdominalpain fevers chills nausea vomiting states he has [...] right upper quadrant and epigastric area. There isno right CVA tenderness or left CVA tenderness. [...] Physician EKG interpretation can be found in [facility] RADIOLOGY (Per Emergency Physician): Interpretation per the [...] Culture. Procedure Abnormality Status --------- ------ Complete Urinalysis[[id number]] Abnormal Final result Please view results for [...] right upper quadrant and right flank pain. Differentialincludes cholecystitis pancreatitis kidney stone kidney infection. Plan CBC CMP lipase urinalysis, treatment with Bentyl and reassessment. Diagnoses as of 11/13/22 1240 Generalized abdominal pain The patient presented with chief complaint of abd pain. The differential diagnosis associated with this patient's presentation includes above. Our workup consisted of ordering/reviewing: above. Diagnostic tests considered but not performed: ct abd pelvis -prior appendectomy and currently overthe low suspicion for acute cholecystitis or obstructing [...] sepsis, or septic shock (If yes use .sepsiscoremeasure): no FINAL IMPRESSION 1. Generalized abdominal pain DISPOSITION Discharge 11/13/2022 12:39:01 PM PATIENT REFERRED TO: [facility] [address] [address] Schedule an appointment as soon as possible for a visit DISCHARGE MEDICATIONS: New Prescriptions DICYCLOMINE (BENTYL) 20 MG TABLET Take 1 tablet (20 mg) by mouth 3 times daily as needed (abdominalpain) for up to 5 days. (Comment: Please note this report has been produced using speech recognition software and may contain errors related to that system including errors in grammar, punctuation, and spelling, as well as words and phrases that may be inappropriate. If there are any questions or concerns please feel freeto contact the dictating provider for clarification.) Yamila Torres MD (electronically signed) Emergency Medicine Provider Yamila Torres MD 11/13/22 1240 documented in this [facility]06-05-2023 Physician Emergency department Note* Yamila Torres MD - 11/13/2022 10:49 AM EDT EMERGENCY DEPARTMENT ENCOUNTER Pt Name: Jez Haider [...] kidney stones or infections. Denies any lower abdominalpain fevers chills nausea vomiting states he has [...] right upper quadrant and epigastric area. There isno right CVA tenderness or left CVA tenderness. [...] Culture. Procedure Abnormality Status --------- ------ Complete Urinalysis[[id number]] Abnormal Final result Please view results for [...] right upper quadrant and right flank pain. Differentialincludes cholecystitis pancreatitis kidney stone kidney infection. Plan CBC CMP lipase urinalysis, treatment with Bentyl and reassessment. Diagnoses as of 11/13/22 1240 Generalized abdominal pain The patient presented with chief complaint of abd pain. The differential diagnosis associated with this patient's presentation includes above. Our workup consisted of ordering/reviewing: above. Diagnostic tests considered but not performed: ct abd pelvis -prior appendectomy and currently overthe low suspicion for acute cholecystitis or obstructing [...] sepsis, or septic shock (If yes use .sepsiscoremeasure): no FINAL IMPRESSION 1. Generalized abdominal pain DISPOSITION Discharge 11/13/2022 12:39:01 PM PATIENT REFERRED TO: [address] [address] Schedule an appointment as soon as possible for a visit DISCHARGE MEDICATIONS: New Prescriptions DICYCLOMINE (BENTYL) 20 MG TABLET Take 1 tablet (20 mg) by mouth 3 times daily as needed (abdominalpain) for up to 5 days. (Comment: Please note this report has been produced using speech recognition software and may contain errors related to that system including errors in grammar, punctuation, and spelling, as well as words and phrases that may be inappropriate. If there are any questions or concerns please feel freeto contact the dictating provider for clarification.) Yamila Torres MD (electronically signed) Emergency Medicine Provider Yamila Torres MD 11/13/22 1240 [id number] Miscellaneous Notes* Telephone Encounter - London Confer - 04/05/2022 8:19 AM EDT Received ED summary for abd pain from [facility]. Placed in provider's inbox for review. Route to [place] scanning. documented in this encounterW[facility]10-24-2022 Miscellaneous Notes* Telephone Encounter - London Confer - 04/03/2022 7:53 AM EDT Received ED summary and xray for fall from [facility]. Placed in provider's inbox for review. Route to [place] scanning. documented in this encounterWright-[facility] Center10-17-2022 Miscellaneous Notes* Telephone Encounter - London Mcghee - 03/27/2022 8:00 AM EDT Received ED summary and chest x ray imgage report from [facility]. Placed in provider's inbox for review. Route to MA scanning. documented in this encounterWright-[facility]09-26-2022 History of Present illness Narrative* Nirmala Bloom PA-C - 03/06/2022 11:49 AM EDT 03/06/2022 Patient presents with: Sore Throat: Body [...] sooner. Nirmala Bloom PA-C documented in this encounterWright-Pat[facility]08-29-2022 History of Present illness Narrative* Scot Valdez APRN.ASSISTANT TENNIS COACH - 02/06/2022 2:39 PM EDT Images from the original note were not [...] x4 S TENDON - ACHILLES Bilateral 01/30/2018 [facility] ALLERGIES Latex MEDICATIONS dicyclomine (BENTYL) 10 [...] resp. rate 16, weight 54 kg (119 lb),SpO2 96 %. Physical Exam Constitutional: General: He [...] 0.1 % TOPICAL CREAM Agrees to plan Scot Valdez APRN.MYLA documented in this encounterWright-[facility]08-24-2022 Miscellaneous Notes* Telephone Encounter - London Mcghee - 02/01/2022 8:34 AM EDT Received ED summary and labs abd pain from [facility]. Placed in provider's inbox for review. Route to [facility] scanning. documented in this encounterWright-[facility]08-23-2022 History of Present illness Narrative* Alicia Isidro APRN.CNP - 01/31/2022 9:59 AM EDT Patient came in with complains of severe abdominal pain. Patients is visible uncomfortable. Said hehas an 9/10 pain. Unable to sit still. [...] him to the ER. documented in this encounterWright-[facility]08-05-2022 Miscellaneous Notes* Telephone Encounter - Kamryn Hooker LPN - 01/13/2022 11:59 AM EDT Received 01/13/2022 from [facility] Physical therapy. Placed in provider's inbox for review. Route to MA scanning Rehabilitation Services discharge summary documented in this encounterWright-[facility]06-10-2022 Miscellaneous Notes* Telephone Encounter - Kamryn Hooker LPN - 11/18/2021 1:29 PM EDT Received 11/18/2021 from [facility] Rehabilitation services. Placed in provider's inbox for review. Route to [place] for scanning documented in this encounterWright-[facility]05-19-2022 Miscellaneous Notes* Telephone Encounter - London Mcghee - 10/27/2021 7:54 AM EDT Received ED summary from [facility]. Placed in provider's inbox for review. Route to [place] scanning. documented in this encounterWright-[facility]04-22-2022 Hospital Discharge instructions Patient Education 09/30/2021 21:35:36 Foot Sprain [...] is very important during the first 48 hoursto reduce swelling. Stay off the injured foot as much as possible until you can walk on it without pain. If needed, you may use crutches during the first week for this purpose. Crutches can be rentedat many pharmacies or surgical/orthopedic supply stores. You may be given a cast shoe to wear to prevent movement in your foot. If not, you can use a sandalor any shoe that does not put pressure on the injured area until the swelling and pain go away. If using a sandal, be careful not to hit your foot against anything, since another injury could make the sprain worse. Apply an ice pack over the injured area for 15 to 20 minutes every 3 to 6 hours. You should do thisfor the first 24 to 48 hours. You [...] 20 minutes several times daily. Alternating ice andheat may also be helpful. You may use ywab-ilr-xjtanrq pain medicine to control pain, unless another medicine was prescribed.If you have chronic liver or kidney disease [...] you can dry it with a chair finisher on cool setting. You may return to sports after healing, when you can run without pain. Follow-up care Follow up with your healthcare provider as directed. Sometimes fractures don t show up on the firstX-ray. Bruises and sprains can sometimes hurt as [...] foot become cold, blue, numb, or tingly [phone] [employer]. [address] [place] [address]. All rights reserved. This information is not intended as a substitute for professional medical care. Always follow yourhealthcare professional's instructions. Follow Up Care 09/30/2021 21:18:59 With:MIRI MCMAHON, ANANYA MONTENEGRO Address: [address] [place] [address] [place] [address]- [phone] When:2-[address] [facility] 12-10-2021 Hospital Discharge instructions Patient Education 05/20/2021 00:20:13 Head Injury [...] area for up to 20 minutes at atime. Do this as often as directed. Use [...] the ears or bruising around the eyes [id number] [employer]. [address] [place] [address]. All rights reserved. This information is not intended as a substitute for professional medical care. Always follow yourhealthcare professional's instructions. Follow Up Care 05/19/2021 23:59:32 With:Your Doctor Address: When:2-[address] [facility] 06-09-2021 NoteHNO ID: [id number] Author: Amilcar Hernandez APRN.ASSISTANT TENNIS COACH Service: ? Author Type: Nurse Practitioner Type: [...] - S TENDON - ACHILLES Bilateral 01/30/2018 [facility] FAMILY HISTORY Problem Relation Age of [...] at bedtime. Objective Ht 170.2 cm (5' 7) Wt 57.2 kg (126 lb) BMI 19.73 [...] providing this service. The patient or patient?s merchandiser retail representative consented to this telephone encounter. I reviewed all pertinent data. SIGNATURE: Amilcar Hernandez APRN.ASSISTANT TENNIS COACH PATIENT NAME: Jez Haider DATE: November 17, 2020 TIME: 1:53 [facility]05-25-2021 NoteHNO ID: [id number] Author: Fatemeh Soares LPN Service: ? Author [...] Patient left in good condition. Fatemeh Soares [facility]05-25-2021 NoteHNO ID: [id number] Author: Yves Nguyen MD Service: ? Author [...] - S TENDON - ACHILLES Bilateral 01/30/2018 [facility] Family History Problem Relation Age of [...] mg injection (XYLOCAINE) 8 mL OTHER ONCE Yevs Nguyen MD - iohexol 900 mg IV [...] divid (more content not included)... [facility]05-25-2021 NoteHNO ID: [id number] Author: Ashley Huddleston MA Service: ? Author Type: Education Specialist Type: Progress Notes Filed: 11/02/2020 12:46 [...] - S TENDON - ACHILLES Bilateral 01/30/2018 [facility] FAMILY HISTORY Problem Relation Age of [...] ?C (98.1 ?F) Ht 170.2 cm (5' 7) Wt 57.2 kg (126 lb) BMI 19.73 kg/m? [facility] NoteProcedure (AGSPINE1) JEZ HAIDER ([id number]) 2000 Date Time Provider Department 11/02/20 12:25 PM YVES NGUYEN AGSPINE1 During your visit today, we recorded the [...] - S TENDON - ACHILLES Bilateral 01/30/2018 [facility] FAMILY HISTORY Problem Relation Age of [...] Ashley Huddleston MA 11/02/2020 12:33 PM Signed Freight Unloader?s Name: Neri Are you on a blood [...] - S TENDON - ACHILLES Bilateral 01/30/2018 [facility] FAMILY HISTORY Problem Relation Age of [...] ?C (98.1 ?F) Ht 170.2 cm (5' 7) Wt 57.2 kg (126 lb) BMI 19.73 kg/m? Physical Exam Ashley Huddleston MA 11/02/2020 12:33 PM Signed PROCEDURE DISCHARGE INSTRUCTIONS 11/02/2020 Jez Haider 2000 Physician: Yves Nguyen MD Procedure: Epidural Steroid Injection: Lumbar (transforaminal/Interlaminar/Caudal) Post Procedure Instructions: If sedation not given, [...] for 24 hours. and (more content not included)...[facility] [facility] NoteHNO ID: [id number] Author: Ashley Huddleston MA Service: ? Author Type: Education Specialist Type: Progress Notes Filed: 11/02/2020 12:46 [...] - S TENDON - ACHILLES Bilateral 01/30/2018 [facility] FAMILY HISTORY Problem Relation Age of [...] no vitals taken for this visit. [facility] NoteHNO ID: [id number] Author: Yves Nguyen MD Service: ? 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 Patient saw Dr. Vargas from spine surgery who referred him to here for an evaluation of AYSHA. 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 as calculated from the following: Height as of this encounter: 170.2 cm (5' 7). Weight as of this encounter: 57.2 kg [...] No results found for: INR IMAGING/TESTING: MRI [place] 08/13/2020 RESULT: Counting reference: ?Lumbosacral junction. ?For the purposes of this report, ?L4-5 is considered the level of the iliac crest and assume there are 5 lumbar-type vertebrae. ?A (more content not included)...[facility]05-03-[facility]21 NoteHNO ID: [id number] Author: Ashley Huddleston MA Service: ? Author Type: Education Specialist Type: Progress Notes Filed: 10/18/2020 5:03 [...] - S TENDON - ACHILLES Bilateral 01/30/2018 [facility] FAMILY HISTORY Problem Relation Age of [...] no vitals taken for this visit. [facility]21 NoteHNO ID: [id number] Author: Lou Vargas Service: ? Author Type: Physician Type: Progress Notes Filed: 08/17/2020 4:24 PM Note Text: NEUROSURGERY FOLLOW UP OFFICE NOTE Lou Vargas MD Date of visit: August 17, 2020 Patient Name: Mr.Preston Thomas Haider Date of : 2000 Current Age: [age] year old Sex: male MRN/E# [id number] Last Office Visit: 07/30/2020 Chief Complaint: Patient [...] - S TENDON - ACHILLES Bilateral 01/30/2018 [facility] FAMILY HISTORY Problem Relation Age of [...] position. ?No significant s (more content not included)...[facility]02-19-[facility]21 NoteHNO ID: [id number] Author: Amy Chilel (Aprn Cnp) Service: ? Author Type: Nurse Practitioner Type: Progress Notes Filed: 07/30/2020 3:16 PM Note Text: NEUROSURGERY CONSULT NOTE Amy Chilel APRN.MYLA Vargas MD Date of visit: July 30, 2020 Patient Name: Mr.Preston Thomas Haider Date of : 2000 Current Age: [age] year old Sex: male MRN/E# [id number] Chief Complaint: Patient presents with: New Patient [...] - S TENDON - ACHILLES Bilateral 01/30/2018 [facility] FAMILY HISTORY Problem Relation Age of [...] IX: Good and e (more content not included)...[facility] Discharge summary Author Jose Randall [facility] January 31, 2023 1:02am Note Date/Time January 31, 2023 1: 00am [facility] Medical Records Department [address] [place] [address] Emergency Department Summary 01/31/23 MR#: [id number] Acct: [id number] Name: JEZ HAIDER Rep #:[id number] : 2000 22 From: Jose Randall DO PCP: Dr. Adam Paiz MD Status:REG ER Location: ED HPI History of Present Illness Chief Complaint: Burn Informant: patient Narrative Narrative: Patient is a 22-year-old male with past medical history of cerebral palsy. He states that he was playing in an xik-uq-nnmff football game a few days ago when he got jammed running a wheel route. He states that he felt pain as soon as he was jammed but was able to continue playing. He states he also developed some burn to the same area. He reports he has been doing ixnn-esx-xsumhom creams without much relief and secondary to this wanted to be evaluated make sure he did not cause any type of internal injury. [facility] Medical History Cerebral palsy Herniated lumbar disc without myelopathy Migraines Home Medications lidocaine-hyaluronic ac-aloe vera-collagen 2 % topical spray gel 1 spray topicalTID PRN pain #120 mL 01/31/23 [Rx Last Taken Unknown] Allergy/AdvReac Type Severity Reaction Status Date / Time latex Allergy Hives Verified 01/31/23 00:20 adhesive tape AdvReac Rash Verified 01/31/23 00:20 Surgical History History of appendectomy Social History Smoking Status: Never smoker alcohol intake: never substance use type: does not use ROS ROS ED Constitutional Constitutional ED: Denies chills or fever(s) ENT ENT ED: Denies sore throat Cardiovascular Cardiovascular: Denies chest pain Respiratory/Chest Respiratory/Chest: Denies cough or dyspnea Gastrointestinal Gastrointestinal: Denies abdominal pain, diarrhea, nausea or vomiting Genitourinary Genitourinary ED: Denies dysuria Musculoskeletal Musculoskeletal: Reports other Details: Positive right thigh/knee pain Integumentary Reports other Details: Positive sunburn ; Denies rash Neurologic Neurologic: Denies headache(s) Hematologic/Lymphatic Hematologic/Lymphatic: Denies easy bleeding or easy bruising EXAM Physical Exam Const Vital Signs: 01/31/23 00:01/31/23 00:21 Temperature 98 F Temperature Source Temporal Pulse Rate 104 H Respiratory Rate 18 Respiratory Effort Normal Blood Pressure 139/85 H Blood Pressure Mean 103 Pulse Ox 99 Positive well nourished and well developed General Appearance ED: well developed HEENT HEENT Narrative: Normocephalic atraumatic Eyes PERRL and EOMs intact bilaterally Neck supple Resp normal respiratory effort and clear to auscultation bilaterally Cardio regular rate and regular rhythm Extremity Extremity Narrative: Bilateral lower extremities are neurovascularly intact. There is no obvious bony deformity or joint effusion. Patellar tendon is intact and knee ligaments are stable. There is pain to palpation over top the anterior distal aspect of the right quadriceps without deformity noted. There is pain with extension against resistance but no true weakness indicating grade 1 muscular strain. Compartments are soft going against compartment syndrome. Neuro oriented x3 and CN's II-XII intact bilaterally Sensorium / Orientation: alert Psych mental status grossly normal Skin Skin Narrative: Patient has a combination of first and second-degree thermal caballero to the anterior aspect of his bilateral anterior thighs without secondary changes to suggest infection. MDM MDM MDM Narrative Medical decision making narrative: Patient presented to the ER with report of mechanical trauma to the right knee. Differential diagnosis is for patellar tendon injury versus knee ligament such as ACL PCL MCL or LCL injury. By exam there is no ligamentous laxity. He has no derangement to the knee or joint effusion to suggest underlying trauma. There is no deformity to suggest patellar tendon rupture. At this time the patient's been able to ambulate on the joint for multiple days I do not feel an x-ray is warranted. By history and exam he has a grade 1 strain to the quadriceps muscle. This is exacerbated by his sunburn. However as he does not have signs of secondary infection or internal injury/tendon rupture there is no need for further work-up and patient can be discharged home and instructed on symptomatic care. History & Record Review Discussion w/independent historian: Patient Discharge Plan Triage Chief Complaint: Burn ED Provider: Jose Randall Dx/Rx/DC Orders Clinical Impression: Strain of right quadriceps muscle, 1st degree sunburn, Cerebral palsy Instructions: ED First- and Second-Degree Caballero ..., ED Muscle Strain, Extremity Prescriptions: New lidocaine-hyalur gn-tgkw-ukfb 2 % spray gel 1 spray topical TID PRN (Reason: pain) Qty: 120 0RF Primary Care Provider: Adam Paiz Referrals: Adam Paiz MD [Primary Care Provider] - Disposition Disposition: Home, Self Care What to do if you have Problems For any increased pain, shortness of breath, bleeding, nausea or vomiting, chestpain, or any unexpected problems, contact your Primary Care Provider. Call [facility] ([phone]) or report to the closest Emergency Room. Call 911 if necessary. 01/31/23 0102 <Electronically signed by Jose Randall DO> Cosigner Signature (if applicable): CC: Dr. Adam Paiz MD ~ Signed [facility] Work Phone: Discharge summary Author Ashvin Durant [facility] July 07, 2023 2:32am Note Date/Time July 07, 2023 2 :31am [facility] Medical Records Department [address] [place] [id number] Emergency Department Summary 07/07/23 MR#: [id number] Acct: [id number] Name: JEZ HAIDER Rep #:[id number] : 2000 23 From: Ashvin Durant MD PCP: Dr. Adam Paiz MD Status:REG ER Location: ED HPI History of Present Illness Chief Complaint: Nausea/Vomiting Detail of Chief Complaint: Nausea after eating 2-1/2 slices of pizza Informant: patient Onset/Context/Timing Onset: Hours Context: Sudden Onset Timing: Continuous Quality: Nausea Location: GI Current Severity: Mild Maximum Severity: Moderate Worsened by: Nothing Relieved by: Nothing Associated Symptoms Associated Symptoms: Not feeling well Narrative Narrative: Patient is a 23-year-old male with no significant past medical history who presents because he feels nauseous after eating 2 and half slices of pizza. No one else ate the pizza. He has had no vomiting diarrhea. Nuys feveror chills. He has not been sleeping well. He denies headache, visual, ocular auditory symptoms. He denies rhinorrhea, congestion or sore throat. He denies cough or shortness of breath. He denies chest pain. He denies urologic symptoms. He denies myalgias arthralgias. Denies any skin lesions. Prior similar symptoms: No Recent Illness/Hospitalization: No PFSH PFSH Medical History (Reviewed 07/07/23 @ 02: by Dr. Ashvin Durant MD)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 Provider Active Start: November 17, 2024 End: November 17, 2024 Latanya AGUILA, PA Attending Provider Active Start: November 17, 2024 End: November 17, 2024 Goals (unrecognized section and content) Goals may be documented in a n alternate section Scheduled Active and Recently Administ ered Medications (unrecognized section and content) Medication Order 11/11/2022 11/12/2022 11/13/2022 dicyclomine (Bentyl) capsule 10 mg (COMPLETED) 10 mg, Oral, Once, On 11/13/22 at 1135, For 1 dose 1155 (Given - Provid er: Lenka Kumar RN) Scheduled Medication Order 05/08/2023 05/09/2023 05/10/2023 naproxen [...] BE BASED ON THE PRIMARY CLINICAL RECORDS. [employer] provides no warranty or guarantee of the accuracy or completeness of information in this document.
[2024-12-18 07:35] LABS: Hematocrit 46.6 % (40-54); Hemoglobin 15.4 g/dL (13.0-16.5); Immature Granulocytes Count 0.010 X10^3/uL (0.0-0.0); Mean Corp Hgb Conc 33.0 g/dL (32-36); Mean Corpuscular Volume 91.7 fL (80-94); Mean Platelet Vol. 12.7 fl (6.2-12.0); NRBC Flagged by Analyzer 0 % (0-5); Platelet Count 179 K/mm3 (150-450); RBC Distribution Width CV 12.3 % (11.6-14.6); RBC Distribution Width SD 41.7 fl (35.1-43.9); Red Blood Count 5.08 M/mm3 (4.6-6.2); White Blood Count 5.9 K/mm3 (4.4-11.0)
[2024-12-18] MEDS: 0.9% Normal Saline (1000mL) 1,000 ML 999 ML IV (07:43)
[2024-12-18 07:48] LABS: Red Blood Cells-Urine 0 SEEN /hpf (0-5); Squamous Epithelial Cells - UA 0 SEEN /hpf (0-5)
[2024-12-18 08:05] LABS: AST(SGOT) 19 U/L (<=37); Alanine Aminotransfer ALT/SGPT 14 U/L (<=46); Albumin, Serum 4.8 g/dL (3.5-5.0); Alkaline Phosphatase 73 U/L (40-129); Anion Gap 13 (5-15); BUN 24 mg/dL (4-19); BUN/Creat Ratio 28.6 RATIO (10-20); Calcium,Total 9.5 mg/dL (7.6-11.0); Carbon Dioxide 27.7 mmol/L (21.0-32.0); Chloride 101 mmol/L (98-108); Estimated Creatinine Clearance 110.83 ml/min (50-250); Globulin 2.7 g/dL (2.2-4.2); Glucose 104 mg/dL (70-99); Lipase 29 U/L (13-75); Potassium 3.6 mmol/L (3.3-5.1)
[2024-12-18 08:06] LABS: Color, Urine Yellow (Yellow); Glucose, Dipstick Normal (Normal); Ketone-Dipstick Negative (Negative); Leukocyte Esterase-Dipstick Negative /ul (Negative); Nitrite-Dipstick Negative (Negative); Occult Blood-Urine Negative /ul (Negative); Protein-Dipstick 30 mg/dl (Negative); Specific Gravity, Urine 1.025 (1.002-1.030); Urine Bilirubin Dipstick Negative (Negative)
[2024-12-18 08:17] LABS: Calcium Oxalate Crystals Ur 1+ /hpf (<or=2+); Mucous, Urine 1+ /hpf (<or=2+)
[2024-12-18 09:22] VITALS: BP 133/74; PULSE 82; RESP 19; O2SAT 100
[2024-12-18 09:23] VITALS: BP 133/74; PULSE 82; RESP 19; TEMP 36.6; O2SAT 100
== END 2024-12-18 09:23 | disposition home or self-care (01) ==
PROVIDERS: Emergency Provider Emergency Medicine; PCP Family Medicine; Visit Provider Emergency Medicine
DX: R11.2 Nausea with vomiting, unspecified (principal); G80.9 Cerebral palsy, unspecified; R10.9 Unspecified abdominal pain
CPT/HCPCS: 74177; 80053; 81001; 83690; 85025; 96361; 96374; 96375; 99285; Q9967; A4216; J2405

== ENCOUNTER 2024-12-20 04:07 | Emergency (ER) | payer MEDICARE, MEDICAID, SELFPAY ==
[2024-12-20 04:08] VITALS: BP 148/70; PULSE 62; RESP 18; TEMP 36.8; O2SAT 98; BMI 19.8
--- NOTE | 2024-12-20 04:40 | EX.ED.DYSGE1 ---
HPI History of Present Illness Chief Complaint: Nausea/Vomiting Narrative Narrative: Patient is a 24-year-old male with past medical history of migraines, cerebral palsy who presents to the emergency department chief complaint nausea and not feeling well overall. Patient states that he was here recently and had a workup performed he was given Zofran. He states that he thought he was feeling better early this afternoon and then he woke up early this morning feeling under the weather again prompting him to come here for further evaluation management. Patient states that he felt extremely nauseous and that he had to vomit however he ended up having bowel movement however he does note this was very small and was difficult for him to do so. Patient states that he has had his appendix out in the past. [facility] Medical History Migraines Herniated lumbar disc without myelopathy Cerebral palsy Home Medications ?Medication ?Instructions ?Recorded ?Last Taken ?Type acetaminophen 325 mg tablet 650 mg (2 x 325 mg) PO Q6H PRN 11/05/24 Unknown Rx (Tylenol) pain #90 tabs ondansetron 4 mg disintegrating 4 mg PO Q8H PRN PRN Nausea #10 tabs 12/18/24 Unknown Rx tablet dicyclomine 20 mg tablet 20 mg PO TID #30 tabs 12/20/24 Unknown Rx metoclopramide HCl 10 mg tablet 10 mg PO Q6H PRN nausea and 12/20/24 Unknown Rx (Reglan) vomiting #20 tabs Allergy/AdvReac Type Severity Reaction Status Date / Time latex Allergy Hives Verified 12/20/24 04:08 adhesive tape AdvReac Rash Verified 12/20/24 04:08 Surgical History History of appendectomy Social History Smoking Status: Never smoker alcohol intake: never substance use type: does not use ROS ROS ED ROS Narrative Constitutional: Denies any fevers, chills, headaches Eyes: Denies double vision Cardiovascular: Denies chest pain Respiratory: Denies shortness of breath Abdomen: Denies abdominal pain complains of nausea and vomiting : Denies any urinary symptoms Neurological: Denies any numbness, weakness, tingling Musculoskeletal: Denies back pain Skin: Denies any rashes or lesions EXAM Physical Exam Narrative Exam Narrative: General: Patient is lying in bed rest comfortably did not appear to be acute distress Head: Atraumatic, normocephalic Eyes: PERRL bilateral, EOMI by, no conjunctival injection noted Neck: Soft, supple, trachea midline Cardiovascular: Regular rate and rhythm Respiratory: Clear to auscultation bilaterally Abdomen: Soft, nondistended, nontender to palpation no rebound or guarding on exam Extremities: +4/5 strength of the bilateral upper and lower extremities Neurological: Patient following commands knew that he was at [facility] years 2024 Skin: Warm, dry, tact Const Vital Signs: 12/20/24 04:08 Temperature 98.2 F Temperature Source Oral Pulse Rate 62 Respiratory Rate 18 Blood Pressure 148/70 H Blood Pressure Mean 96 Pulse Ox 98 Oxygen Delivery Method Room Air MDM MDM MDM Narrative Medical decision making narrative: Patient is a 24-year-old male who presented to the emergency department the chief complaint of nausea and not feeling well overall. On the differential diagnose includes but not limited to constipation, viral gastroenteritis, cholecystitis, pancreatitis, bowel obstruction. I reviewed the patient's previous workup Including CT abdomen and pelvis that showed hepatomegaly with fatty infiltration. Fecal retention in the colon consistent with constipation no obstructive uropathy. I discussed this results with the patient again and notified him that his CT did reveal that he was constipated and he states that this does make sense as he had difficulty having a small bowel movement prior to arrival. He states he has not taken anything for constipation. I did offer to work him up again including IV labs and if his lab work was abnormal we would proceed with repeating CT scan he states that he would prefer not to have an IV and forego blood work at this point in time. He would like to try some oral medications and if things are getting better he would like to go home. On reevaluation patient is feeling much better he would like to go home at this point time. Patient will be given prescriptions for Reglan and Bentyl. He is advised to pickling grader MiraLAX and use this twice daily until he is having good bowel movements. He was advised to return with worsening symptoms or any concerns. His abdomen remains benign on repeat exam at 5:33 AM. All question concerns answered is discharged home in stable condition. Discharge Plan Triage Chief Complaint: Nausea/Vomiting ED Provider: Adonis Apodaca Dx/Rx/DC Orders Clinical Impression: Nausea, Constipation Prescriptions: New dicyclomine 20 mg tablet 20 mg PO TID Qty: 30 0RF metoclopramide HCl [Reglan] 10 mg tablet 10 mg PO Q6H PRN (Reason: nausea and vomiting) Qty: 20 0RF No Action ondansetron 4 mg tablet,disintegrating 4 mg PO Q8H PRN PRN (Reason: Nausea) Qty: 10 0RF acetaminophen [Tylenol] 325 mg tablet 650 mg PO Q6H PRN (Reason: pain) Qty: 90 3RF Primary Care Provider: Adam Paiz Referrals: Adam Paiz MD [Primary Care Provider] - Activity Restrictions/Additional Instructions: Take prescriptions of prescribed. Start with a bland diet and advance as tolerated. Crackers, plain toast, soups etc.. Return with any other concerns or worsening symptoms otherwise follow-up your doctor. Print Language: Spanish Disposition Disposition: Home, Self Care
--- OUTSIDE RECORDS SUMMARY | 2024-12-20 04:44 | XMS RPT_ITS | CCD ---
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 worn down as he describes. No vevz-njg-zirqwwu medications taken to assist. No other associated [...] Orders: Ord (more content not included)... Normal [facility] Emergency Department Summary on 11-05-2024 Emergency Department Summary [facility] Medical Records Department [address] [place] [address] Emergency Department Summary 11/05/24 MR#: [id number] Acct: [id number] Name: JEZ HAIDER Rep #: [id number] : 2000 24 From: Saeid Hadley DO [...] Ox 100 Oxygen Delivery Method Room Air [facility] Narrative Medical decision making narrative: HISTORY OF [...] History obtained from others: none Consults: none [facility] Narrative: The patient was initially hemodynamically stable, afebrile and nontoxic-appearing. Exam without focus of neurovascular compromise in bilateral lower extremities. I considered the following differential diagnosis: Musculoskeletal strain, rhabdomyolysis I offered a laboratory evaluation to definitively rhabdomyolysis or any sequela. Patient was alert and orient x 3 refused labs at this time. Given he had not tried any qdeq-irf-wghzuve pain medication I chose to start thereby [...] Discharge home This note was generated with [employer] dictation software. It may contain incorrect words, spelling, and punctuation that were not noted in review of the chart prior to signing. Discharge Plan Triage Chief Complaint: Other, Pain/Inj ED Provider: Saeid Hadley Dx/Rx/DC Orders Clinical Impression: Myalgia Instructions: ED Myalgias Pr (more content not included)... Normal [facility] CNOVon 09-20-2024 CN Office Visit ([facility]) ---- JEZ HAIEDR ([id number]) 2000 M Date Time Provider Department 09/20/24 12:15 PM ADAM CHANDLER [facility] During your visit today, we recorded the following information about you: Temperature Pulse Respiration Blood pressure 97.2 degrees 65/minute 16/minute 123/76 Weight 56.6 kg Adam Chandler APRN.RN [facility] 09/20/2024 1:39 PM Signed Subjective HPI Nontoxic-appearing [...] - S TENDON - ACHILLES Bilateral 01/30/2018 [facility] ALLERGIES Latex MEDICATIONS - hydrocortisone (ANUSOL-HC) [...] of care (more content not included)... Normal [facility] STREP A MOLECULAR (POC)on Procedural Control Valid [facility] Strep A (POCT) Negative Negative [facility] 12 Lead EKGon 08-30-2024 12 Lead EKG [facility] Cardiovascular Services [address] [place] [address] 12 Lead EKG 08/30/24 1310 MR#: [id number] Acct: [id number] Name: JEZ HAIDER Rep #: [id number] : 2000 24 From: Duncan Tamayo MD [...] Normal sinus rhythm Normal ECG Confirmed by DUNCAN TAMAYO MD ([id number]), editor greeting card BONITA KAUR ([id number]) on 09/01/2024 6:41:45 AM Referred By: Ar Confirmed By: DUNCAN TAMAYO MD 09/01/24640 Date Duncan Tamayo MD CC: Dr. Xu Gordon MD; Dr. Adam Paiz MD Signed Normal [facility] Absolute lymphocyte countOrd ered By: Xu Gordon on 08-30-2024 Lymphocytes Auto (Unsp spec) [#/Vol] 1.86 10*3/uL 0.83-4.51 [facility] Absolute neutrophil countOrd ered By: Xu Gordon on 08-30-2024 Neutrophils (Bld) [#/Vol] 2.0 10*3/uL 2.0-7.7 [facility] Anion gap in Serum or Plasma Ordered By: Xu Gordon on 08-30-2024 Anion gap [Moles/Vol] 13 mmol/L 5-15 [facility] Automated lymphocyte count a s percentage of total leukocytesOrdered By: Xu Gordon on 08-30-2024 Lymphocytes/100 WBC Auto (Unsp spec) 43.2 % High 19-41 [facility] BUN/creatinine ratioOrdered By: Xu Gordon on 08-30-2024 Urea nitrogen/Creatinine [Mass ratio] 20.6 mg/mg High 10-20 [facility] Basophil percentageOrdered B y: Xu Gordon on 08-30-2024 Basophils/100 WBC (Bld) 0.9 % 0-1 [facility] Bilirubin Test strip Ql (U)O rdered By: Xu Gordon on 08-30-2024 Bilirubin Ql (U) Negative Negative [facility] Bilirubin, totalOrdered By: Xu Gordon on 08-30-2024 Bilirubin [Mass/Vol] 1.02 mg/dL 0.00-1.30 [facility] CBC W/Diff, Automatedon 08-10 Absolute Lymph 1.86 X10 3/uL Normal 0.83-4.51 [facility] Comment on above: Performed By: #### L 100.0100, L500.4050 #### [facility] [address] [place], [address] Absolute Neut 2.0 X10 3/uL Normal 2.0-7.7 [facility] Comment on above: Performed By: #### L 100.0100, L500.4050 #### [facility] [address] [place], [address] Basophils/100 WBC (Bld) 0.9 % Normal 0-1 [facility] Comment on above: Performed By: #### L 100.0100, L500.4050 #### [facility] [address] [place], [address] Eosinophils/100 WBC (Bld) 1.9 % Normal 0-5 [facility] Comment on above: Performed By: #### L 100.0100, L500.4050 #### [facility] [address] [place], [address] Erythrocyte distribution width (RBC) [Ratio] 12.6 % Normal 11.6-14.6 [facility] Comment on above: Performed By: #### L 100.0100, L500.4050 #### [facility] [address] [place], [address] Hematocrit (Bld) [Volume fraction] 48.7 % Normal 40-54 [facility] Comment on above: Performed By: #### L 100.0100, L500.4050 #### [facility] [address] [place], [address] Hemoglobin (Bld) [Mass/Vol] 16.2 g/dL Normal 13.0-16.5 [facility] Comment on above: Performed By: #### L 100.0100, L500.4050 #### [facility] [address] [place], [address] IG% 0.500 Normal 0.0-0.9 [facility] Comment on above: Result Comment: IG% - Immature Granulocytes (promyelocytes, myelocytes and metamyelocytes) > 1% indicates that a LEFT SHIFT is Present. Performed By: #### L 100.0100, L500.4050 #### [facility] [address] [place], [address] Lymphocytes/100 WBC (Bld) 43.2 % High 19-41 [facility] Comment on above: Performed By: #### L 100.0100, L500.4050 #### [facility] [address] [place], [address] MCH (RBC) [Entitic mass] 30.6 pg Normal 27.0-32.0 [facility] Comment on above: Performed By: #### L 100.0100, L500.4050 #### [facility] [address] [place], [address] MCHC (RBC) [Mass/Vol] 33.3 g/dL Normal 32-36 [facility] Comment on above: Performed By: #### L 100.0100, L500.4050 #### [facility] [address] [place], [address] MCV (RBC) [Entitic vol] 91.9 fL Normal 80-94 [facility] Comment on above: Performed By: #### L 100.0100, L500.4050 #### [facility] [address] [place], [address] Monocytes/100 WBC (Bld) 6.3 % Normal 0-10 [facility] Comment on above: Performed By: #### L 100.0100, L500.4050 #### [facility] [address] [place], [address] Neutrophils/100 WBC (Bld) 47.2 % Normal 47-70 [facility] Comment on above: Performed By: #### L 100.0100, L500.4050 #### [facility] [address] [place], [address] Nucleated RBC (Bld) [#/Vol] 0 10*3/uL Normal 0-5 [facility] Comment on above: Performed By: #### L 100.0100, L500.4050 #### [facility] [address] [place], [address] Platelet mean volume (Bld) [Entitic vol] 11.8 fL Normal 6.2-12.0 [facility] Comment on above: Performed By: #### L 100.0100, L500.4050 #### [facility] [address] [place], [address] Platelets (Bld) [#/Vol] 218 10*3/uL Normal 150-450 [facility] Comment on above: Performed By: #### L 100.0100, L500.4050 #### [facility] [address] [place], [address] RBC (Bld) [#/Vol] 5.30 10*6/uL Normal 4.6-6.2 [facility] Comment on above: Performed By: #### L 100.0100, L500.4050 #### [facility] [address] [place], [address] RDW SD 42.7 fl Normal 35.1-43.9 [facility] Comment on above: Performed By: #### L 100.0100, L500.4050 #### [facility] [address] [place], [address] WBC (Bld) [#/Vol] 4.3 10*3/uL Low 4.4-11.0 [facility] Comment on above: Performed By: #### L 100.0100, L500.4050 #### [facility] [address] [place], [place], [address] Carbon dioxide, total [Moles /volume] in Central venous bloodOrdered By: Xu Gordon on 08-30-2024 CO2 [Moles/Vol] 26.0 mmol/L 21.0-32.0 [facility] Chest 1 View (Portable)on Chest 1 View (Portable) [facility] Imaging Services [address] [place], [place] [address] Chest 1 View (Portable) MR#: [id number] Acct: [id number] Name: JEZ HAIDER Rep #: [id number] : 2000 M 24 From: Karoline Quijano nd, MD PCP: Dr. Adam Paiz MD Status: REG ER Study: Chest 1 View (Portable) Date of Exam: 08/30/24 Exam# [id number] Ordering Dr: Xu Gordon MD PROCEDURE: CHEST [...] View (Portable) IMPRESSION: Negative Chest. Reading Location: [facility] CC: Dr. Xu Gordon MD; Dr. Adam Paiz MD Shopfitter: Signed Normal [facility] Chloride assayOrdered By: Montez Gordon on 08-30-2024 Chloride [Moles/Vol] 101 mmol/L 98-108 [facility] Comprehensive Metabolic Prof ilon 08-30-2024 Albumin [Mass/Vol] 5.0 g/dL Normal 3.5-5.0 [facility] Comment on above: Performed By: #### L 100.0100, L500.4050 #### [facility] [address] [place], [address] Emergency Department Summary on 08-30-2024 Emergency Department Summary [facility] Medical Records Department [address] [place] [address] Emergency Department Summary 08/30/24 MR#: [id number] Acct: [id number] Name: JEZ HAIDER Rep #: [id number] : 2000 24 From: Xu Gordon MD [...] drained and that his heart feels heavy. [facility] Medical History Migraines Herniated lumbar disc without [...] hydrocortisone 2.5 % topical cream 1 applic TN QHS #30 grams Unknown Rx with perineal [...] are compl (more content not included)... Normal [facility] Eosinophil percentageOrdered By: Xu Gordon on 08-30-2024 Eosinophils/100 WBC (Bld) 1.9 % 0-5 [facility] Epithelial cells.squamous LM Ql (Urine sed)Ordered By: Xu Gordon on 08-30-2024 Epithelial cells.squamous LM.HPF (Urine sed) [#/Area] 0 /[HPF] 0-5 [facility] Erythrocyte distribution wid th ratioOrdered By: Xu Gordon on 08-30-2024 Erythrocyte distribution width (RBC) [Ratio] 12.6 % 11.6-14.6 [facility] Erythrocyte distribution wid th standard deviationOrdered By: Xu Gordon on 08-30-2024 Erythrocyte distribution width (RBC) [Entitic vol] 42.7 fL 35.1-43.9 [facility] Erythrocyte distribution width (RBC) [Ratio] 42.7 fl 35.1-43.9 [facility] Estimation of creatinine yudy aranceOrdered By: Xu Gordon on 08-30-2024 Estimated Creatinine Clearance Calc 95.16 ml/min 50-250 [facility] GFR/1.73 sq M.predicted nena g non-blacks MDRD (S/P/Bld) [Vol rate/Area]Ordered By: Xu Gordon on 08-30-2024 Estimated GFR (MDRD) Non-Af Amer 111 >60 [facility] Comment on above: mL/min/1.73m2 CKD-EP I Creatinine Equation (2020) Glomerular filtration rate ( GFR) estimation/1.73 sq m using serum, plasma, or whole bOrdered By: Xu Gordon on 08-30-2024 GFR/1.73 sq M.predicted among non-blacks MDRD (S/P/Bld) [Vol rate/Area] 111 mL/min/{1.73_m2} >60 [facility] Comment on above: mL/min/1.73m2 CKD-EP I Creatinine Equation (2020) Glucose Ql (U)Ordered By: Montez Gordon on 08-30-2024 Urine Glucose (UA) Normal mg/dl Normal [facility] Hematocrit Auto (Bld) [Volum e fraction]Ordered By: Xu Gordon on 08-30-2024 Hematocrit (Bld) [Volume fraction] 48.7 % 40-54 [facility] Hemoglobin measurementOrdere d By: Xu Gordon on 08-30-2024 Hemoglobin (Bld) [Mass/Vol] 16.2 g/dL 13.0-16.5 [facility] Immature granulocytes/100 WB C Auto (Bld)Ordered By: Xu Gordon on 08-30-2024 Immature granulocytes/100 WBC (Bld) 0.500 % 0.0-0.9 [facility] Comment on above: IG% - Immature Granu locytes (promyelocytes, myelocytes and metamyelocytes) > 1% indicates that a LEFT SHIFT is Present. Influenza virus A and B and SARS-CoV-2 (COVID-19) and Respiratory syncytial virus RNAOrdered By: Xu Gordon on 08-30-2024 SARS-CoV-2 (COVID-19) RNA LISA+probe Ql (Unsp spec) [facility] Ketones Test strip Ql (U)Ord ered By: Xu Gordon on 08-30-2024 Ketones Ql (U) Negative Negative [facility] L499.0042on 08-30-2024 Trop T High Sen Normal <=22 [facility] Comment on above: Result Comment: Gian bauer via OM: Ordered Performed By: #### L 499.0042 ####[facility] [address] [place], [address] L501.4021on 08-30-2024 Trop T High Sen < 6 Normal <=22 [facility] Comment on above: Performed By: #### L 501.4021 ####[facility] [address] [place], [place], [address] Laboratory - Chemistry and C hemistry - challengeOrdered By: Xu Gordon on 08-30-2024 AST [Catalytic activity/Vol] 25 U/L <38 [facility] Lymphocytes Auto (Unsp spec) [#/Vol]Ordered By: Xu Gordon on 08-30-2024 Lymphocytes (Bld) [#/Vol] 1.86 10*3/uL 0.83-4.51 [facility] Lymphocytes/100 WBC Auto (Un sp spec)Ordered By: Xu Gordon on 08-30-2024 Lymphocytes/100 WBC (Bld) 43.2 % High 19-41 [facility] M100.678on 08-30-2024 M100.678 SARS-CoV-2 (COVID 19) Negative INFLUENZA A Negative INFLUENZA B Negative RSV PCR Negative Normal [facility] Comment on above: Performed By: #### M 100.678 #### [facility] [address] [place], [place], [address] MCV (mean corpuscular volume ) determinationOrdered By: Xu Gordon on 08-30-2024 MCV (RBC) [Entitic vol] 91.9 fL 80-94 [facility] Mean corpuscular hemoglobin (MCH) determinationOrdered By: Xu Gordon on 08-30-2024 MCH (RBC) [Entitic mass] 30.6 pg 27.0-32.0 [facility] Mean corpuscular hemoglobin concentration (MCHC) determinationOrdered By: Xu Gordon on 08-30-2024 MCHC (RBC) [Mass/Vol] 33.3 g/dL 32-36 [facility] Mean platelet volume determi nationOrdered By: Xu Gordon on 08-30-2024 Platelet mean volume (Bld) [Entitic vol] 11.8 fL 6.2-12.0 [facility] Microscopic analysis of urin e for red blood cells (RBC)Ordered By: Xu Gordon on 08-30-2024 Microscopic analysis of urine for red blood cells (RBC) 0 SEEN /hpf 0-5 [facility] Urine RBC 0 SEEN /hpf 0-5 [facility] Monocyte percentageOrdered B y: Xu Gordon on 08-30-2024 Monocytes/100 WBC (Bld) 6.3 % 0-10 [facility] Mucus LM Ql (Urine sed)Order ed By: Xu Gordon on 08-30-2024 Mucus Ql (Urine sed) 1+ /hpf [facility] Neutrophil percentageOrdered By: Xu Gordon on 08-30-2024 Neutrophils/100 WBC (Bld) 47.2 % 47-70 [facility] Nitrite Test strip Ql (U)Ord ered By: Xu Gordon on 08-30-2024 Nitrite Ql (U) Negative Negative [facility] No Panel InformationOrdered By: Xu Gordon on 08-30-2024 Troponin T High Sensitivity < 6 ng/L <22 [facility] Nucleated red blood cell per centageOrdered By: Xu Gordon on 08-30-2024 Nucleated RBC/100 WBC (Bld) [Ratio] 0 % 0-5 [facility] Platelet countOrdered By: Montez Gordon on 08-30-2024 Platelets (Bld) [#/Vol] 218 10*3/uL 150-450 [facility] Potassium (Unsp spec) [Mass/ Vol]Ordered By: Xu Gordon on 08-30-2024 Potassium [Moles/Vol] 3.7 mmol/L 3.3-5.1 [facility] Potassium measurement (mass/ volume)Ordered By: Xu Gordon on 08-30-2024 Potassium (Unsp spec) [Mass/Vol] 3.7 mmol/L 3.3-5.1 [facility] Protein Test strip Ql (U)Ord ered By: Xu Gordon on 08-30-2024 Protein Ql (U) 30 mg/dl High Negative [facility] RBC Auto (Bld) [#/Vol]Ordere d By: Xu Gordon on 08-30-2024 RBC (Bld) [#/Vol] 5.30 10*6/uL 4.6-6.2 [facility] Serum creatinine measurement (mass/volume)Ordered By: Xu Gordon on 08-30-2024 Creatinine [Mass/Vol] 0.97 mg/dL 0.70-1.20 [facility] Serum globulin measurementOr dered By: Xu Gordon on 08-30-2024 Globulin (S) [Mass/Vol] 6.6 g/dL High 2.2-4.2 [facility] Serum glucose measurement (m ass/volume)Ordered By: Xu Gordon on 08-30-2024 Glucose [Mass/Vol] 92 mg/dL 70-99 [facility] Serum or plasma alanine mullins otransferase (ALT) measurementOrdered By: Xu Gordon on 08-30-2024 ALT [Catalytic activity/Vol] 18 U/L <47 [facility] Serum or plasma albumin marita urement (mass/volume)Ordered By: Xu Gordon on 08-30-2024 Albumin [Mass/Vol] 5.0 g/dL 3.5-5.0 [facility] Serum or plasma albumin/glob ulin mass ratioOrdered By: Xu Gordon on 08-30-2024 Albumin/Globulin [Mass ratio] 0.2 {ratio} Low 0.9-2.4 [facility] Serum or plasma alkaline mercy sphatase measurementOrdered By: Xu Gordon on 08-30-2024 ALP [Catalytic activity/Vol] 32 U/L Low 40-129 [facility] Serum or plasma calcium marita urement (mass/volume)Ordered By: Xu Gordon on 08-30-2024 Calcium [Mass/Vol] 9.7 mg/dL 7.6-11.0 [facility] Serum or plasma urea nitroge n measurement (mass/volume)Ordered By: Xu Gordon on 08-30-2024 Urea nitrogen [Mass/Vol] 20 mg/dL High 4-19 [facility] Sodium levelOrdered By: Xu Gordon on 08-30-2024 Sodium [Moles/Vol] 140 mmol/L 133-145 [facility] Squamous epithelial cells de tection in urine sediment by light microscopyOrdered By: Xu Gordon on 08-30-2024 Epithelial cells.squamous LM Ql (Urine sed) 0-5 SEEN /hpf 0-5 [facility] Total proteinOrdered By: Arline Gordon on 08-30-2024 Protein [Mass/Vol] 7.9 g/dL 5.9-8.4 [facility] Urinalysis, Completeon 08-30 BACTERIA 2+ /hpf Normal None Seen [facility] Comment on above: Order Comment: CLEAN CATCH Performed By: #### L 400.0001 ####[facility] [address] [place], [address] EPI,SQUAMOUS 0-5 SEEN Normal 0-5 [facility] Comment on above: Order Comment: CLEAN CATCH Performed By: #### L 400.0001 ####[facility] [address] [place], [address] Mucus Ql (Urine sed) 1+ /hpf Normal [facility] Comment on above: Order Comment: CLEAN CATCH Performed By: #### L 400.0001 ####[facility] [address] [place], [address] RBC 0 SEEN Normal 0-5 [facility] Comment on above: Order Comment: CLEAN CATCH Performed By: #### L 400.0001 ####[facility] [address] [place], [address] WBC 0 SEEN Normal 0-5 [facility] Comment on above: Order Comment: CLEAN CATCH Performed By: #### L 400.0001 ####[facility] [address] [place], [address] Urine blood detectionOrdered By: Xu Gordon on 08-30-2024 Urine Occult Blood Negative Negative [facility] Urine clarityOrdered By: Arline Gordon on 08-30-2024 Clarity (U) Clear Clear [facility] Urine color determinationOrd ered By: Xu Gordon on 08-30-2024 Color (U) Yellow Yellow [facility] Urine glucose detectionOrder ed By: Xu Gordon on 08-30-2024 Glucose Ql (U) Normal mg/dl Normal [facility] Urine leukocyte esterase det ection by dipstickOrdered By: Xu Gordon on 08-30-2024 Leukocyte esterase Test strip Ql (U) Negative Negative [facility] Urine pHOrdered By: Xu livingston on 08-30-2024 pH (U) 6.0 [pH] 5.0 - 8.0 [facility] Urine sediment bacteria coun t by microscopy (number/high power field)Ordered By: Xu Gordon on 08-30-2024 Bacteria LM.HPF (Urine sed) [#/Area] 2 /[HPF] None Seen [facility] Urine specific gravity measu rementOrdered By: Xu Gordon on 08-30-2024 Specific gravity (U) [Rel density] 1.025 1.002-1.030 [facility] Urine urobilinogen measureme ntOrdered By: Xu Gordon on 08-30-2024 Urobilinogen Ql (U) Normal mg/dl Normal [facility] Urobilinogen Ql (U)Ordered B y: Xu Gordon on 08-30-2024 Urine Urobilinogen Normal mg/dl Normal [facility] White blood cell (WBC) count Ordered By: Xu Gordon on 08-30-2024 WBC (Bld) [#/Vol] 4.3 10*3/uL Low 4.4-11.0 [facility] White blood cell countOrdere d By: Xu Gordon on 08-30-2024 Urine WBC 0 SEEN /hpf 0-5 [facility] White blood cell count 0 SEEN /hpf 0-5 [facility] CNOVon 08-04-2024 CNOV Office Visit ([facility]) ---- JEZ HAIDER ([id number]) 2000 M Date Time Provider Department 08/04/24 6:30 PM MAYELIN NICOLAS [facility] During your visit today, we recorded the following information about you: Temperature Pulse Respiration Blood pressure 98 degrees 90/minute 18/minute 134/80 Weight 57 kg Mayelin Nicolas PA-C 08/04/2024 6:51 PM Signed This note was created using [employer]. Subjective Jez Haider is a 24 year [...] [J03.00] Myalgia [M79.10] Order(s):STREP A MOLECULAR (POC) [1946402] Order #: [id number]. #:[id number] amoxicillin-clavula chelsea potassium (AUGMENTIN) 875-125 mg per [...] Hamstring t (more content not included)... Normal [facility] STREP A MOLECULAR (POC)on Interpretation and review of laboratory results Abnormal [facility] Procedural Control Valid [facility] Strep A (POCT) Positive Abnormal Negative [facility] CNOVon 04-16-2024 CNOV Office Visit ([facility]) ---- JEZ HAIDER ([id number]) 2000 M Date Time Provider Department 04/16/24 3:30 PM SCOT VALDEZ [facility] During your visit today, we recorded the following information about you: Temperature Pulse Respiration Blood pressure 96.9 degrees 85/minute 20/minute 120/78 Weight 54.5 kg Scot Valdez APRN.RN [facility] 04/16/2024 4:11 PM Signed Subjective HPI HPI [...] x4 S TENDON - ACHILLES Bilateral 01/30/2018 [facility] ALLERGIES Latex MEDICATIONS hydrocortisone (ANUSOL-HC) 2.5 [...] He is not toxic-appearing. HENT: Mouth/Throat: Lips: Deloit. Mouth: Mucous membranes are moist. Cardiovascular: Rate [...] - CYCLOBENZAPRINE 10 MG TABLET Scot Valdez APRN.RN [facility] Allergies As of Date: 04/16/2024 Noted Allergy [...] 0 04/16/2024 (more content not included)... Normal [facility] Abdomen Single Viewon 2023 Abdomen Single View [facility] Imaging Services [address] [place] [address] Abdomen Single View MR#: [id number] Acct: [id number] Name: JEZ HAIDER Rep #: [id number] : 2000 M 23 From: Randal sparrow MD PCP: Dr. Adam Paiz MD Status: REG ER Study: Abdomen Single View Date of Exam: 02/26/24 Exam# [id number] Ordering Dr: Kristian Lagos MD -[id number] STUDY: X-RAY - ABDOMEN/PELVIS REASON FOR [...] Kristian Lagos MD; Dr. Adam Paiz MD Shopfitter: Signed Normal [facility] Emergency Department Summary on 02-26-2024 Emergency Department Summary [facility] Medical Records Department [address] [place] [address] Emergency Department Summary 02/26/24 MR#: [id number] Acct: [id number] Name: JEZ HAIDER Rep #: [id number] : 2000 23 From: Kristian Lagos MD [...] states abdominal pain is gone right now. [facility] Medical History Migraines Herniated lumbar disc without [...] hydrocortisone 2.5 % topical cream 1 applic [place] QHS #30 grams 02/26/24 Unknown Rx with [...] 02/26/24 11:43 (more content not included)... Normal [facility] Urinalysis, Completeon 02-25 BACTERIA 1+ /hpf Normal None Seen [facility] Comment on above: Order Comment: LUISITO CTOR TO SPECIFY Performed By: #### L 400.0001 #### [facility] [address] [place], [address] EPI,SQUAMOUS 0 SEEN Normal 0-[address] [place] [address] Comment on above: Order Comment: LUISITO CTOR TO SPECIFY Performed By: #### L 400.0001 #### [facility] [address] [place], [address] Mucus Ql (Urine sed) 0 SEEN Normal [facility] Comment on above: Order Comment: LUISITO CTOR TO SPECIFY Performed By: #### L 400.0001 #### [facility] [address] [place], [address] RBC 0 SEEN Normal [address] Comment on above: Order Comment: LUISITO CTOR TO SPECIFY Performed By: #### L 400.0001 #### [facility] [address] [place], [address] WBC 0 SEEN Normal [address] Comment on above: Order Comment: LUISITO CTOR TO SPECIFY Performed By: #### L 400.0001 #### [facility] [address] [place], [address] Emergency Department Summary on 02-12-2024 Emergency Department Summary [facility] Medical Records Department [address] [place] [place] [address] Emergency Department Summary 02/12/24 MR#: [id number] Acct: [id number] Name: JEZ HAIDER Rep #: [id number] : 2000 23 From: Ashvin Durant MD [...] or pseu (more content not included)... Normal [facility] Knee 4 or More Viewson 02-11 Knee 4 or More Views [facility] Imaging Services [address] [place] [address] Knee 4 or More Views MR#: [id number] Acct: [id number] Name: JEZ HAIDER Rep #: [id number] : 2000 M 23 From: Garcia pichardo MD PCP: Dr. Adam Paiz MD Status: PRE ER Study: Knee 4 or More Views Date of Exam: 02/12/24 Exam# [id number] Ordering Dr: Provider,Ed P. -[id number] INDICATION: PAIN EXAMINATION/TECHNIQ UE: X-RAY - [...] Dr. Adam Paiz MD; ED PHYSICIAN PROVIDER Shopfitter: Signed Normal [facility] Emergency Department Summary on 01-18-2024 Emergency Department Summary [facility] Medical Records Department [address] [place] [address] Emergency Department Summary 01/18/24 MR#: [id number] Acct: [id number] Name: JEZ HAIDER Rep #: [id number] : 2000 23 From: Jose Randall DO [...] the increasing pain he presents for evaluation [facility] Medical History Migraines Herniated lumbar disc without [...] and ex (more content not included)... Normal [facility] Basic Metabolic Profile (BMP )on 12-30-2023 BUN/CRE 28.6 RATIO High 10- [facility] Comment on above: Performed By: #### L 100.0100, L500.2500 #### [facility] [address] [place], [address] CA,Total 9.7 mg/dL Normal 8.5-10.1 [facility] Comment on above: Performed By: #### L 100.0100, L500.2500 #### [facility] [address] [place], [address] Chloride [Moles/Vol] 102 mmol/L Normal 98-107 [facility] Comment on above: Performed By: #### L 100.0100, L500.2500 #### [facility] [address] [place], [address] CO2 [Moles/Vol] 33.0 mmol/L High 21.0-32.0 [facility] Comment on above: Performed By: #### L 100.0100, L500.2500 #### [facility] [address] [place], [address] Creatinine [Mass/Vol] 0.77 mg/dL Normal 0.70-1.30 [facility] Comment on above: Result Comment: The validity of the calculated GFR GFRAA in patients over 70 years has not been determined. Clinical correlation is essential. Performed By: #### L 100.0100, L500.2500 #### [facility] [address] [place], [address] ECRCL 103.72 ml/min Normal [facility] Comment on above: Performed By: #### L 100.0100, L500.2500 #### [facility] [address] [place], [address] EST GFR - AA 158 mL/min Normal >60 [facility] Comment on above: Result Comment: Afri can Swedish GFR Calc Performed By: #### L 100.0100, L500.2500 #### [facility] [address] [place], [address] GAP 5 Normal 5-15 [facility] Comment on above: Performed By: #### L 100.0100, L500.2500 #### [facility] [address] [place], [address] GFR/1.73 sq M.predicted among non-blacks MDRD (S/P/Bld) [Vol rate/Area] 130 mL/min/{1.73_m2} Normal >60 [facility] Comment on above: Result Comment: Non- GFR Calc Performed By: #### L 100.0100, L500.2500 #### [facility] [address] [place], [address] Glucose [Mass/Vol] 99 mg/dL Normal 74-106 [facility] Comment on above: Performed By: #### L 100.0100, L500.2500 #### [facility] [address] [place], [address] Potassium [Moles/Vol] 3.5 mmol/L Normal 3.5-5.1 [facility] Comment on above: Performed By: #### L 100.0100, L500.2500 #### [facility] [address] [place], [address] Sodium [Moles/Vol] 140 mmol/L Normal 136-145 [facility] Comment on above: Performed By: #### L 100.0100, L500.2500 #### [facility] [address] [place], [address] Urea nitrogen [Mass/Vol] 22 mg/dL High 7-18 [facility] Comment on above: Performed By: #### L 100.0100, L500.2500 #### [facility] [address] [place], [address] CBC W/Diff, Automatedon -2 Absolute Lymph 1.76 X10 3/uL Normal 0.83-4.51 [facility] Comment on above: Performed By: #### L 100.0100, L500.2500 #### [facility] [address] [place], [address] Absolute Neut 3.5 X10 3/uL Normal 2.0-7.7 [facility] Comment on above: Performed By: #### L 100.0100, L500.2500 #### [facility] [address] [place], [address] Basophils/100 WBC (Bld) 0.7 % Normal 0-1 [facility] Comment on above: Performed By: #### L 100.0100, L500.2500 #### [facility] [address] [place], [address] Eosinophils/100 WBC (Bld) 2.6 % Normal 0-5 [facility] Comment on above: Performed By: #### L 100.0100, L500.2500 #### [facility] [address] [place], [address] Erythrocyte distribution width (RBC) [Ratio] 12.4 % Normal 11.6-14.6 [facility] Comment on above: Performed By: #### L 100.0100, L500.2500 #### [facility] [address] [place], [address] Hematocrit (Bld) [Volume fraction] 46.2 % Normal 40-54 [facility] Comment on above: Performed By: #### L 100.0100, L500.2500 #### [facility] [address] [place], [address] Hemoglobin (Bld) [Mass/Vol] 15.1 g/dL Normal 13.0-16.5 [facility] Comment on above: Performed By: #### L 100.0100, L500.2500 #### [facility] [address] [place], [address] IG% 0.200 Normal 0.0-0.9 [facility] Comment on above: Result Comment: IG% - Immature Granulocytes (promyelocytes, myelocytes and metamyelocytes) > 1% indicates that a LEFT SHIFT is Present. Performed By: #### L 100.0100, L500.2500 #### [facility] [address] [place], [address] Lymphocytes/100 WBC (Bld) 30.3 % Normal 19-41 [facility] Comment on above: Performed By: #### L 100.0100, L500.2500 #### [facility] [address] [place], [address] MCH (RBC) [Entitic mass] 29.7 pg Normal 27.0-32.0 [facility] Comment on above: Performed By: #### L 100.0100, L500.2500 #### [facility] [address] [place], [address] MCHC (RBC) [Mass/Vol] 32.7 g/dL Normal 32-36 [facility] Comment on above: Performed By: #### L 100.0100, L500.2500 #### [facility] [address] [place], [address] MCV (RBC) [Entitic vol] 90.9 fL Normal 80-94 [facility] Comment on above: Performed By: #### L 100.0100, L500.2500 #### [facility] [address] [place], [address] Monocytes/100 WBC (Bld) 6.9 % Normal 0-10 [facility] Comment on above: Performed By: #### L 100.0100, L500.2500 #### [facility] [address] [place], [address] Neutrophils/100 WBC (Bld) 59.3 % Normal 47-70 [facility] Comment on above: Performed By: #### L 100.0100, L500.2500 #### [facility] [address] [place], [address] Nucleated RBC (Bld) [#/Vol] 0 10*3/uL Normal 0-5 [facility] Comment on above: Performed By: #### L 100.0100, L500.2500 #### [facility] [address] [place], [address] Platelet mean volume (Bld) [Entitic vol] 11.6 fL Normal 6.2-12.0 [facility] Comment on above: Performed By: #### L 100.0100, L500.2500 #### [facility] [address] [place], [address] Platelets (Bld) [#/Vol] 203 10*3/uL Normal 150-450 [facility] Comment on above: Performed By: #### L 100.0100, L500.2500 #### [facility] [address] [place], [address] RBC (Bld) [#/Vol] 5.08 10*6/uL Normal 4.6-6.2 [facility] Comment on above: Performed By: #### L 100.0100, L500.2500 #### [facility] [address] [place], [address] RDW SD 41.1 fl Normal 35.1-43.9 [facility] Comment on above: Performed By: #### L 100.0100, L500.2500 #### [facility] [address] [place], [address] WBC (Bld) [#/Vol] 5.8 10*3/uL Normal 4.4-11.0 [facility] Comment on above: Performed By: #### L 100.0100, L500.2500 #### [facility] [address] [place], [address] Emergency Department Summary on 12-30-2023 Emergency Department Summary [facility] Medical Records Department [address] [place] [address] Emergency Department Summary 12/30/23 MR#: [id number] Acct: [id number] Name: JEZ HAIDER Rep #: [id number] : 2000 23 From: Aleksandr Ronquillo DO PCP: Dr. Adam Paiz MD Status:REG ER Location: ED HPI History of Present Illness Chief Complaint: General Illness Informant: patient Onset/Context/Timin g Onset: Today Context: Gradual Onset Timing: Continuous [...] any chest pain or shortness of breath. [facility] Medical History Migraines Herniated lumbar [...] % (Auto) 59.3 Lymph % (Auto) 30.3 [place] % (Auto) 6.9 Eos % (Auto) 2.6 Baso % (Auto) 0.7 Absolute Neuts (auto) 3.5 Absolute Lymphs (auto) 1.76 Nucleated RBC % 0 (more content not included)... Normal [facility] M100.678on 12-30-2023 M100.678 Normal Reference Range = Negative FLUABV+SARS-CoV-2+R SV Pnl Resp LISA+probe GeneXpert Instrument, PCR method SARS-CoV-2 (COVID 19) Negative INFLUENZA A Negative INFLUENZA B Negative RSV PCR Negative Normal [facility] Comment on above: Performed By: #### M 100.678 ####[facility] [id number] [place], [address] [facility] 10-23-2023 CN [facility] ---- JEZ HAIDER ([id number]) 2000 M Date Time Provider Department 10/23/23 5:15 PM BUSHRA OLIVARES [facility] During your visit today, we recorded the following information about you: Temperature Pulse Respiration Blood pressure 98.8 degrees 95/minute 18/minute 145/76 Weight 54.2 kg Bushra Olivares, HENRIQUE.[facility] 10/23/2023 5:51 PM Signed Subjective Cough Associated [...] x4 S TENDON - ACHILLES Bilateral 01/30/2018 [facility] ALLERGIES Latex MEDICATIONS cyclobenzaprine (FLEXERIL) 10 [...] course of illness Bushra Olivares APRN.Bushra Zavaleta APRN.CNP 10/23/2023 5:49 PM Signed ASSESSMENT/PLAN: 1. Strep [...] for t (more content not included)... Normal [facility] STREP A MOLECULAR (POC)on Interpretation and review of laboratory results Abnormal [facility] Procedural Control Valid [facility] Strep A (POCT) Positive Abnormal Negative [facility] CNOVon 09-25-2023 CNOV Office Visit ([facility]) ---- JEZ HAIDER ([id number]) 2000 M Date Time Provider Department 09/25/23 3:30 PM ADAM CHANDLER [facility] During your visit today, we recorded the following information about you: Temperature Pulse Respiration Blood pressure 98 degrees 98/minute 20/minute 144/83 Weight 54 kg OrlyAdam tuttleHENRIQUE.[facility] 09/25/2023 3:47 PM Signed Subjective HPI Nontoxic [...] x4 S TENDON - ACHILLES Bilateral 01/30/2018 [facility] ALLERGIES Latex MEDICATIONS cyclobenzaprine (FLEXERIL) 10 [...] of care. This note was generated using WeVue software. It may contain errors in w (more content not included)... Normal [facility] STREP A MOLECULAR (POC)on Procedural Control Valid [facility] Strep A (POCT) Positive Abnormal Negative [facility] Amorphous sediment detection in urine sediment by light microscopyOrdered By: Ashvin Durant on 07-07-2023 Amorphous sediment LM Ql (Urine sed) 2+ [facility] Basophil percentageOrdered B y: Ashvin Durant on 07-07-2023 Basophil percentage 0 SEEN /hpf 0-5 [facility] Bilirubin Test strip Ql (U)O rdered By: Ashvin Durant on 07-07-2023 Bilirubin Ql (U) Negative Negative [facility] Culture, urineOrdered By: Ug o Durant on 07-07-2023 Bacteria identified Cx Nom (U) Culture exhibits no growth. [facility] Ketones Test strip Ql (U)Ord ered By: Ashvin Durant on 07-07-2023 Ketones Ql (U) 50 mg/dl Negative [facility] Mucus LM Ql (Urine sed)Order ed By: Ashvin Durant on 07-07-2023 Mucus Ql (Urine sed) 0 SEEN /hpf [facility] Nitrite Test strip Ql (U)Ord ered By: Ashvin Durant on 07-07-2023 Nitrite Ql (U) Negative Negative [facility] No Panel InformationOrdered By: Ashvin Durant on 07-07-2023 Urine RBC 0 SEEN /hpf 0-5 [facility] Protein Test strip Ql (U)Ord ered By: Ashvin Durant on 07-07-2023 Protein Ql (U) 15 mg/dl Negative [facility] Squamous epithelial cells de tection in urine sediment by light microscopyOrdered By: Ashvin Durant on 07-07-2023 Epithelial cells.squamous LM Ql (Urine sed) 0 SEEN /hpf 0-5 [facility] Urine blood detectionOrdered By: Ashvin Durant on 07-07-2023 RBC Ql (U) Negative Negative [facility] Urine clarityOrdered By: Ashvin Durant on 07-07-2023 Clarity (U) Cloudy Clear [facility] Urine color determinationOrd ered By: Ashvin Durant on 07-07-2023 Color (U) Yellow Yellow [facility] Urine glucose detectionOrder ed By: Ashvin Durant on 07-07-2023 Glucose Ql (U) Normal mg/dl Normal [facility] Urine leukocyte esterase det ection by dipstickOrdered By: Ashvin Durant on 07-07-2023 Leukocyte esterase Test strip Ql (U) Negative Negative [facility] Urine pHOrdered By: Ashvin li on 07-07-2023 pH (U) 7.0 [pH] 5.0 - 8.0 [facility] Urine sediment bacteria coun t by microscopy (number/high power field)Ordered By: Ashvin Durant on 07-07-2023 Bacteria LM.HPF (Urine sed) [#/Area] 1 /[HPF] None Seen [facility] Urine specific gravity measu rementOrdered By: Ashvin Durant on 07-07-2023 Specific gravity (U) [Rel density] 1.015 1.002-1.030 [facility] Urine urobilinogen measureme ntOrdered By: Ashvin Durant on 07-07-2023 Urobilinogen Ql (U) 1 mg/dl Normal [facility] Culture, urineOrdered By: Priyanka Durant on 07-06-2023 Bacteria identified Cx Nom (U) Culture exhibits no growth. [facility] No Panel Informationon 05-10 Radiology Study observation (narrative) [facility] Work Phone: XR SHOULDER RIGHT 2+ VIEWSon 05-10-2023 XR SHOULDER RIGHT 2+ VIEWS Interpreted By: Stephanie Emery, STUDY: XR SHOULDER RIGHT 2+ VIEWS; ; 05/10/2023 2:24 am INDICATION: Signs/Symptoms:fall . COMPARISON: None. ACCESSION NUMBER(S): [id number] ORDERING CLINICIAN: MARCY GALEAS FINDINGS: Three views right shoulder. No acute fracture or malalignment. Old right mid shaft clavicle fracture. The imaged lung is clear. IMPRESSION: No acute osseous abnormality. MACRO: None Signed by: Stephanie Emery 05/10/2023 2:55 AM Dictation workstation: [id number] [facility] XR Shoulder - right 2 Viewso n 05-10-2023 No acute osseous abnormality. MACRO: None Signed by: Stephanie Emery 05/10/2023 2:55 AM Dictation workstation: [id number] [facility] Interpreted By: Stephanie Emery, STUDY: XR SHOULDER RIGHT 2+ VIEWS; ; 05/10/2023 2:24 am INDICATION: Signs/Symptoms:fall . COMPARISON: None. ACCESSION NUMBER(S): [id number] ORDERING CLINICIAN: MARCY GALEAS FINDINGS: Three views right shoulder. No acute fracture or malalignment. Old right mid shaft clavicle fracture. The imaged lung is clear. [facility]ODAL Stephanie Emery MD - 05/10/2023 Interpreted By: Stephanie Emery, STUDY: XR SHOULDER RIGHT 2+ VIEWS; ; 05/10/2023 2:24 am INDICATION: Signs/Symptoms:fall . COMPARISON: None. ACCESSION NUMBER(S): [id number] ORDERING CLINICIAN: MARCY GALEAS FINDINGS: Three views right shoulder. No acute fracture or malalignment. Old right mid shaft clavicle fracture. The imaged lung is clear. IMPRESSION: No acute osseous abnormality. MACRO: None Signed by: Stephanie Emery 05/10/2023 2:55 AM Dictation workstation: [id number] [place] [address] Work Phone: XR Shoulder - right 2 ViewsO rdered By: Stephanie Emery on 05-10-2023 [facility] Work Phone: XR WRIST RIGHT 3+ VIEWSon XR WRIST RIGHT 3+ VIEWS Interpreted By: Stephanie Emery, STUDY: XR WRIST RIGHT 3+ VIEWS; ; 05/10/2023 2:24 am INDICATION: Signs/Symptoms:fall . COMPARISON: None. ACCESSION NUMBER(S): [id number] ORDERING CLINICIAN: MARCY GALEAS FINDINGS: Four views right wrist. No acute fracture or malalignment. Sclerotic densities in the distal ulna and scaphoid, most consistent with bone islands. Soft tissues are within normal limits. IMPRESSION: No acute osseous abnormality. MACRO: None Signed by: Stephanie Emery 05/10/2023 2:54 AM Dictation workstation: [id number] [facility] XR Wrist - right 3 Viewson 1 07-10-2022 No acute osseous abnormality. MACRO: None Signed by: Stephanie Emery 05/10/2023 2:54 AM Dictation workstation: [id number] [facility] Interpreted By: Stephanie Emery, STUDY: XR WRIST RIGHT 3+ VIEWS; ; 05/10/2023 2:24 am INDICATION: Signs/Symptoms:fall . COMPARISON: None. ACCESSION NUMBER(S): [id number] ORDERING CLINICIAN: MARCY GALEAS FINDINGS: Four views right wrist. No acute fracture or malalignment. Sclerotic densities in the distal ulna and scaphoid, most consistent with bone islands. Soft tissues are within normal limits. MMODAL Stephanie Emery MD - 05/10/2023 Interpreted By: Stephanie Emery, STUDY: XR WRIST RIGHT 3+ VIEWS; ; 05/10/2023 2:24 am INDICATION: Signs/Symptoms:fall . COMPARISON: None. ACCESSION NUMBER(S): [id number] ORDERING CLINICIAN: MARCY GALEAS FINDINGS: Four views right wrist. No acute fracture or malalignment. Sclerotic densities in the distal ulna and scaphoid, most consistent with bone islands. Soft tissues are within normal limits. IMPRESSION: No acute osseous abnormality. MACRO: None Signed by: Stephanie Emery 05/10/2023 2:54 AM Dictation workstation: [id number] [facility] Work Phone: [facility] Work Phone: CBC W Auto Differential pane l (Bld)Ordered By: Raquel Perdomo on 11-13-2022 Basophils (Bld) [#/Vol] 0.0 10*3/uL 0.0 - 0.2 10*3/uL [facility] Basophils/100 WBC (Bld) 0.6 % 0.0 - 2.0 % [facility] Eosinophils (Bld) [#/Vol] 0.0 10*3/uL 0.0 - 0.5 10*3/uL [facility] Eosinophils/100 WBC (Bld) 0.6 % Low 1.0 - 6.0 % [facility] Erythrocyte distribution width (RBC) [Ratio] 12.3 % 11.5 - 14.5 % [facility] Hematocrit (Bld) [Volume fraction] 44.3 % 40.0 - 52.0 % [facility] Hemoglobin (Bld) [Mass/Vol] 14.6 g/dL 13.0 - 18.0 g/dL [facility] Immature granulocytes (Bld) [#/Vol] 0.0 10*3/uL NINF - 0.0 10*3/uL [facility] Immature granulocytes/100 WBC (Bld) 0.2 % High NINF - 0.0 % [facility] Interpretation and review of laboratory results Abnormal [facility] Lymphocytes (Bld) [#/Vol] 1.3 10*3/uL 1.0 - 4.3 10*3/uL [facility] Lymphocytes/100 WBC (Bld) 25.9 % 20.0 - 40.0 % [facility] MCH (RBC) [Entitic mass] 30.2 pg 26.0 - 34.0 pg [facility] MCHC (RBC) [Mass/Vol] 33.0 % 32.0 - 36.0 % [facility] MCV (RBC) [Entitic vol] 91.7 fL 80.0 - 98.0 fL [facility] Monocytes (Bld) [#/Vol] 0.3 10*3/uL 0.0 - 0.8 10*3/uL [facility] Monocytes/100 WBC (Bld) 6.8 % 2.0 - 10.0 % [facility] Neutrophils (Bld) [#/Vol] 3.2 10*3/uL 1.8 - 7.0 10*3/uL [facility] Neutrophils/100 WBC (Bld) 65.9 % 40.0 - 80.0 % [facility] Platelet mean volume (Bld) [Entitic vol] 11.3 fL 7.4 - 12.4 fL [facility] Comment on above: MPV is a calculated measurement using platelet volume ratio Platelets (Bld) [#/Vol] 181 10*3/uL 140 - 440 10*3/uL [facility] RBC (Bld) [#/Vol] 4.83 10*6/uL 4.40 - 5.9 0 10*6/uL [facility] WBC (Bld) [#/Vol] 4.8 10*3/uL 3.6 - 10.7 10*3/uL [facility] Comprehensive metabolic 2000 panelon 11-13-2022 Albumin [Mass/Vol] 4.5 g/dL 3.5 - 5.0 g/dL [facility] ALP [Catalytic activity/Vol] 70 U/L 38 - 126 U/L [facility] ALT [Catalytic activity/Vol] 13 U/L 0 - 49 U/L [facility] Anion gap [Moles/Vol] 4 mmol/L 3 - 13 mmol/L [facility] AST [Catalytic activity/Vol] 20 U/L 15 - 46 U/L [facility] Bilirubin [Mass/Vol] 0.4 mg/dL 0.2 - 1 .3 mg/dL [facility] Calcium [Mass/Vol] 9.4 mg/dL 8.4 - 10. 4 mg/dL [facility] Chloride [Moles/Vol] 106 mmol/L 98 - 10 7 mmol/L [facility] CO2 [Moles/Vol] 29 mmol/L 22 - 30 mmol/L [facility] Creatinine [Mass/Vol] 0.72 mg/dL 0.66 - 1.25 mg/dL [facility] GFR/1.73 sq M.predicted MDRD (S/P/Bld) [Vol rate/Area] - PINF [facility] Comment on above: Calculation based on the Chronic Kidney Disease Epidemiology Collaboration (CKD-EPI) equation refit without adjustment for race Glucose [Mass/Vol] 103 mg/dL High 70 - 100 mg/dL [facility] Interpretation and review of laboratory results Abnormal [facility] Potassium [Moles/Vol] 4.0 mmol/L 3.5 - 5.1 mmol/L [facility] Protein [Mass/Vol] 7.5 g/dL 6.3 - 8.2 g/dL [facility] Sodium [Moles/Vol] 139 mmol/L 135 - 145 mmol/L [facility] Urea nitrogen [Mass/Vol] 16 mg/dL 9 - 20 mg/dL [facility] ED Nursing Noteon 11-13-2022 ED Nursing Note Patient discharged in no noted distress with script to his pharmacy and PCP follow up. Lenka Kumar RN 11/13/22 1335 Normal [facility] ED Provider Noteon 3 ED Provider Note EMERGENCY DEPARTMENT ENCOUNTER Pt [...] [facility] (Per Emergency Physician): Interpretation per the [...] Normal Bilirubin (more content not included)... Normal [facility] - Chemistry and C hemistry - challengeon 11-13-2022 Lipase [Catalytic activity/Vol] 85 U/L 23 - 300 U/L [facility] Lipase [Catalytic activity/V ol]on 11-13-2022 Interpretation and review of laboratory results Normal [facility] No Panel Informationon 11-13 [facility] Urinalysis complete panel (U )on 11-13-2022 Bilirubin Ql (U) Negative Negative mg/dL [facility] Clarity (U) Clear Clear [facility] Color (U) Light Yellow Lt. Yellow [facility] Glucose Ql (U) Normal Normal (<70) mg/dL [facility] Hemoglobin Ql (U) Negative Negative mg/dL [facility] Interpretation and review of laboratory results Abnormal [facility] Ketones (U) [Mass/Vol] Negative Negative mg/d L [facility] Leukocyte esterase Test strip Ql (U) Negative Negative Kyle/uL [facility] Nitrite Ql (U) Negative Negative [facility] pH (U) 6.5 [pH] 5.0 - 8.0 pH [facility] Protein (U) [Mass/Vol] Negative Negative mg/d L [facility] Specific gravity (U) [Rel density] 1.023 1.005 - 1.030 [facility] Urobilinogen (U) [Mass/Vol] 2 mg/dL Abnormal Normal (0-1) [facility] Volume, Urine 12 mL [facility] h [facility] Absolute lymphocyte counton 01-31-2022 Lymphocytes Auto (Unsp spec) [#/Vol] 1.81 10*3/uL 0.83-4.51 [facility] Work Phone: Basophil percentageon 2021 Basophil percentage 10-25 SEEN /hpf 0-5 [facility] Work Phone: Basophils/100 WBC (Bld) 0.6 % 0-1 [facility] Work Phone: Bilirubin [Mass/Vol] 0.70 mg/dL 0.20-1.00 [facility] Work Phone: Comment on above: For patients on eltr ombopag therapy, use of [facility] [place] TBIL is not recommended. Chloride [Moles/Vol] 104 mmol/L 98-107 [facility] Work Phone: Eosinophils/100 WBC (Bld) 0.0 % 0-5 [facility] Work Phone: Glucose [Mass/Vol] 101 mg/dL 74-106 [facility] Work Phone: Comment on above: Fasting Glucose resu lt from 100 to 125 mg/dL suggests IMPAIRED HOMEOSTASIS per A.D.A. criteria. Neutrophils (Bld) [#/Vol] 2.6 10*3/uL 2.0-7.7 [facility] Work Phone: Neutrophils/100 WBC (Bld) 54.5 % 47-70 [facility] Work Phone: Potassium [Moles/Vol] 3.7 mmol/L 3.5-5.1 [facility] Work Phone: Protein [Mass/Vol] 7.3 g/dL 6.4-8.2 [facility] Work Phone: Sodium [Moles/Vol] 140 mmol/L 136-145 [facility] Work Phone: WBC (Bld) [#/Vol] 4.7 10*3/uL 4.4-11.0 [facility] Work Phone: Bilirubin Test strip Ql (U)o n 01-31-2022 Bilirubin Ql (U) Negative Negative [facility] Work Phone: Blood erythrocytes count (nu mber/volume)on 01-31-2022 RBC (Bld) [#/Vol] 4.78 10*6/uL 4.6-6.2 [facility] Work Phone: Blood hemoglobin measurement (mass/volume)on 01-31-2022 Hemoglobin (Bld) [Mass/Vol] 14.7 g/dL 13.0-16.5 [facility] Work Phone: Blood lymphocytes/100 leukoc yteson 01-31-2022 Lymphocytes/100 WBC (Bld) 38.5 % 19-41 [facility] Work Phone: Blood monocytes/100 leukocyt eson 01-31-2022 Monocytes/100 WBC (Bld) 6.2 % 0-10 [facility] Work Phone: Blood platelet mean volumeon 01-31-2022 Platelet mean volume (Bld) [Entitic vol] 11.5 fL 6.2-12.0 [facility] Work Phone: Determination of erythrocyte mean corpuscular volume (MCV)on 01-31-2022 MCV (RBC) [Entitic vol] 92.9 fL 80-94 [facility] Work Phone: Direct bilirubinon 2 Bilirubin.direct [Mass/Vol] 0.17 mg/dL 0.00-0.30 [facility] Work Phone: Hematocrit Auto (Bld) [Volum e fraction]on 01-31-2022 Hematocrit (Bld) [Volume fraction] 44.4 % 40-54 [facility] Work Phone: Ketones Test strip Ql (U)on 01-31-2022 Ketones Ql (U) Negative Negative [facility] Work Phone: Laboratory - Chemistry and C hemistry - challengeon 01-31-2022 ALP [Catalytic activity/Vol] 71 U/L 45-117 [facility] Work Phone: ALT [Catalytic activity/Vol] 22 U/L 16-61 [facility] Work Phone: CO2 [Moles/Vol] 32.0 mmol/L 21.0-32.0 [facility] Work Phone: Globulin (S) [Mass/Vol] 3.1 g/dL 2.2-4.2 [facility] Work Phone: Lipase [Catalytic activity/Vol] 117 U/L 73-393 [facility] Work Phone: Urea nitrogen/Creatinine [Mass ratio] 19.3 mg/mg 10-20 [facility] Work Phone: Laboratory - Hematology and Cell countson 01-31-2022 Erythrocyte distribution width (RBC) [Entitic vol] 43.1 fL 35.1-43.9 [facility] Work Phone: Erythrocyte distribution width (RBC) [Ratio] 12.5 % 11.6-14.6 [facility] Work Phone: Immature granulocytes/100 WBC (Bld) 0.200 % 0.0-0.9 [facility] Work Phone: Comment on above: IG% - Immature Granu locytes (promyelocytes, myelocytes and metamyelocytes) > 1% indicates that a LEFT SHIFT is Present. MCH (RBC) [Entitic mass] 30.8 pg 27.0-32.0 [facility] Work Phone: Nucleated RBC/100 WBC (Bld) [Ratio] 0 % 0-5 [facility] Work Phone: MCHC Auto (RBC) [Mass/Vol]on 01-31-2022 MCHC (RBC) [Mass/Vol] 33.1 g/dL 32-36 [facility] Work Phone: Mucus LM Ql (Urine sed)on Mucus Ql (Urine sed) 0 SEEN /hpf [facility] Work Phone: Nitrite Test strip Ql (U)on 01-31-2022 Nitrite Ql (U) Negative Negative [facility] Work Phone: No Panel Informationon 01-31 Estimated Creatinine Clearance Calc 94.70 ml/min [facility] Work Phone: Estimated GFR (MDRD) Amer 128 mL/min >60 [facility] Work Phone: Comment on above: GFR Calc Estimated GFR (MDRD) Non-Af Amer 106 mL/min >60 [facility] Work Phone: Comment on above: Non- GFR Calc Platelets bldon 01-31-2022 Platelets (Bld) [#/Vol] 173 10*3/uL 150-450 [facility] Work Phone: Protein Test strip Ql (U)on 01-31-2022 Protein Ql (U) 15 mg/dl Negative [facility] Work Phone: Serum or plasma albumin marita urement (mass/volume)on 01-31-2022 Albumin [Mass/Vol] 4.2 g/dL 3.2-5.0 [facility] Work Phone: Serum or plasma calcium marita urement (mass/volume)on 01-31-2022 Calcium [Mass/Vol] 9.3 mg/dL 8.5-10.1 [facility] Work Phone: Serum or plasma creatinine m easurement (mass/volume)on 01-31-2022 Creatinine [Mass/Vol] 0.93 mg/dL 0.70-1.30 [facility] Work Phone: Comment on above: The validity of the calculated GFR & GFRAA in patients over 70 years has not been determined. Clinical correlation is essential. Serum or plasma urea nitroge n measurement (mass/volume)on 01-31-2022 Urea nitrogen [Mass/Vol] 18 mg/dL 7-18 [facility] Work Phone: Squamous epithelial cells de tection in urine sediment by light microscopyon 01-31-2022 Epithelial cells.squamous LM Ql (Urine sed) 0-5 SEEN /hpf 0-5 [facility] Work Phone: Thin prep Papanicolaou smear with manual screeningon 01-31-2022 Thin prep Papanicolaou smear with manual screening 30 U/L 15-37 [facility] Work Phone: Thin prep Papanicolaou smear with manual screening 4 5-15 [facility] Work Phone: Urine blood detectionon 01-10 RBC Ql (U) 250 /ul Negative [facility] Work Phone: RBC Ql (U) 25-50 SEEN /hpf 0-5 [facility] Work Phone: Urine clarityon 01-31-2022 Clarity (U) Sl. Cloudy Clear [facility] Work Phone: Urine color determinationon 01-31-2022 Color (U) Yellow Yellow [facility] Work Phone: Urine glucose detectionon Glucose Ql (U) Normal mg/dl Normal [facility] Work Phone: Urine leukocyte esterase det ection by dipstickon 01-31-2022 Leukocyte esterase Test strip Ql (U) 100 /ul Negative [facility] Work Phone: Urine pHon 01-31-2022 pH (U) 6.0 [pH] 5.0 - 8.0 [facility] Work Phone: Urine sediment bacteria coun t by microscopy (number/high power field)on 01-31-2022 Bacteria LM.HPF (Urine sed) [#/Area] 1 /[HPF] None Seen [facility] Work Phone: Urine specific gravity measu rementon 01-31-2022 Specific gravity (U) [Rel density] 1.025 1.002-1.030 [facility] Work Phone: Urobilinogen Auto test strip Ql (U)on 01-31-2022 Urobilinogen Ql (U) Normal mg/dl Normal [facility] Work Phone: No Panel Informationon 10-26 SARS-CoV-2 & FLU Antigen (Rapid) [facility] Work Phone: XR FOOT MINIMUM 3 VIEWS [...] Date: 09/30/2021 9:59:21 PM [facility]2020 [facility] Telephone (AGSPHWG) ---- JEZ HAIDER ([id number]) 2000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 Comment: Spec imen Slightly Hemolyzed. Performed By: #### C MP, CBC ####Main Lab - [id number] [place], [place] [address] Bilirubin mass conc 0.4 mg/dL Normal 0.2-1.3 [facility] Comment on above: Order Comment: @ COL L DATE was changed from 05/09/18 to 05/10/18@ by [id number]. Old specimen was 1129:[id number]. Performed By: #### C MP, CBC ####Main Lab - [id number] [place], [place] [address] Calcium mass conc 9.6 mg/dL Normal 8.4-10.2 [facility] Comment on above: Order Comment: @ COL L DATE was changed from 05/09/18 to 05/10/18@ by [id number]. Old specimen was 1129:[id number]. Performed By: #### C MP, CBC ####Main Lab - [id number] [place] [id number] Chloride molar conc 100 mmol/L Normal 98-107 [facility] Comment on above: Order Comment: @ COL L DATE was changed from 05/09/18 to 05/10/18@ by [id number]. Old specimen was 1129:[id number]. Performed By: #### C MP, CBC ####Main Lab - [id number] [place], [place] [address] CO2 molar conc 26 mmol/L Normal 22-31 [facility] Comment on above: Order Comment: @ COL L DATE was changed from 05/09/18 to 05/10/18@ by [id number]. Old specimen was 1129:[id number]. Performed By: #### C MP, CBC ####Main Lab - [id number] [place] [id number] Creatinine mass conc 0.69 mg/dL Low 0.80-1.30 [facility] Comment on above: Order Comment: @ COL L DATE was changed from 05/09/18 to 05/10/18@ by [id number]. Old specimen was 1129:[id number]. Performed By: #### C MP, CBC ####Main Lab - [id number] [place], [place] [address] ESTIMATED CREAT CLEARANCE 132.74 Normal [facility] Comment on above: Order Comment: @ COL L DATE was changed from 05/09/18 to 05/10/18@ by [id number]. Old specimen was 1129:[id number]. Result Comment: COCK CROFT-GAULT FORMULA 1973 Performed By: #### C MP, CBC ####Main Lab - [id number] [place], [place] [address] GFR/1.73 sq M predicted among non-blacks MDRD vol rate/area (S/P/Bld) mL/min/{1.73_m2} Normal [facility] Comment on above: Order Comment: @ COL L DATE was changed from 05/09/18 to 05/10/18@ by [id number]. Old specimen was 1129:[id number]. Performed By: #### C MP, CBC ####Main Lab - [id number] [place], [place] [address] Globulin Calculated mass conc (S) 3.5 g/dL Normal [facility] Comment on above: Order Comment: @ COL L DATE was changed from 05/09/18 to 05/10/18@ by [id number]. Old specimen was 1129:[id number]. Performed By: #### C MP, CBC ####Main Lab - [id number] [place], [place] [address] Glucose mass conc 121 mg/dL High 70-99 [facility] Comment on above: Order Comment: @ COL L DATE was changed from 05/09/18 to 05/10/18@ by [id number]. Old specimen was 1129:[id number]. Result Comment: The glucose range is based on recommendations from theAmerican Diabetes Association for fasting blood glucoserange. Performed By: #### C MP, CBC ####Main Lab - [id number] [place], [place] [address] Potassium molar conc 3.7 mmol/L Normal 3.6-5.0 [facility] Comment on above: Order Comment: @ COL L DATE was changed from 05/09/18 to 05/10/18@ by [id number]. Old specimen was 1129:[id number]. Result Comment: Spec imen Slightly Hemolyzed. Performed By: #### C MP, CBC ####Main Lab - [id number] [place], [place] [address] Protein mass conc 8.1 g/dL Normal 6.3-8.2 [facility] Comment on above: Order Comment: @ COL L DATE was changed from 05/09/18 to 05/10/18@ by [id number]. Old specimen was 1129:[id number]. Performed By: #### C MP, CBC ####Main Lab - [id number] [place], [place] [address] Sodium molar conc 139 mmol/L Normal 137-145 [facility] Comment on above: Order Comment: @ COL L DATE was changed from 05/09/18 to 05/10/18@ by [id number]. Old specimen was 1129:[id number]. Performed By: #### C MP, CBC ####Main Lab - [id number] [place], [place] [address] Urea nitrogen mass conc (Bld) 16 mg/dL Normal 7-21 [facility] Comment on above: Order Comment: @ COL L DATE was changed from 05/09/18 to 05/10/18@ by [id number]. Old specimen was 1129:[id number]. Performed By: #### C MP, CBC ####Main Lab - [place] [id number] Urea nitrogen/Creatinine mass ratio 23.2 Ratio Normal 5.0-42.0 [facility] Comment on above: Order Comment: @ COL L DATE was changed from 05/09/18 to 05/10/18@ by [id number]. Old specimen was 1129:[id number]. Performed By: #### C ESSENCE, CBC ####Main [facility] - [id number] [place], [place] [address] Age Reported 17 Years Normal [facility] Comment on above: Order Comment: @ COL L DATE was changed from 05/09/18 to 05/10/18@ by [id number]. Old specimen was 1129:[id number]. Performed By: #### C MP, CBC ####Main Lab - [id number] [place] [address] D-DIMERon 05-10-2018 D-DIMER < 0.27 Normal 0.00-0.50 [facility] Comment on above: Order Comment: @ COL L DATE was changed from 05/09/18 to 05/10/18@ by [id number]. Old specimen was 1129:[id number]. Result Comment: The D-Dimer assay can be used to assist in the diagnosis ofvenous thromboembolism. For the assay in use at [facility]), a D-Dimer cutoff of <0.50 ug/mL FEU has anegative predictive value of 99% for all patients suspectedof venous thromboembolism. Performed By: #### D D, STR ####Main Lab - [id number] [place], [place] [address] LACTATEon 05-10-2018 Lactate molar conc 2.1 mmol/L Normal 0.7-2.4 [facility] Comment on above: Order Comment: @ COL L DATE was changed from 05/09/18 to 05/10/18@ by [id number]. Old specimen was 1129:[id number]. Performed By: #### L ACTATE 1 ####Main Lab - [id number] [place], [place] [address] XR CHEST, PA/LATERALon 05-10 XR CHEST, PA/LATERAL [facility] [address] [place], [place] [id number] Diagnostic Imaging Report : [id number] Signed Name: JEZ HAIDER MRUN: [id number] : 2000 Loc: ED Age / Sex: 17 / M ADM Status: DEP ER ADM Date: 05/09/18 Room/Bed: Ordering Physician: Tawana Isaac PA-C Procedure: XR CHEST, PA/LATERAL Order Number(s): [id number] Ordered Date: 05/10/18 Ordered Time: 0000 EXAMINATION: [...] Ohara DO Signed Date/Time: 05/10/18106 Transcribed Date/Time: 05/10/18 010 Normal [facility] Office Visit: Post Op Append ectomyon 04-02-2017 Documentation of current medications (procedure) T Invalid Interpretation Code [facility] Work Phone: Documentation of current medications (procedure) Done Invalid Interpretation Code [facility] Work Phone: Fall risk assessment No Invalid Interpretation Code [facility] Work Phone: Protein mass conc T Invalid Interpretation Code [facility] Work Phone: Protein mass conc Done Invalid Interpretation Code [facility] Work Phone: Tobacco smoking status NHIS Never Invalid Interpretation Code [facility] Surgical [facility] Work Phone: Tobacco smoking status NHIS Never smoker Invalid Interpretation Code [facility] Surgical [facility] Work Phone: Tobacco use [facility] Never smoker Invalid Interpretation Code [facility] Surgical [facility] Work Phone: Office Visiton 05-12-2015 Protein mass conc yes Invalid Interpretation Code [facility] Work Phone: Smoking cessation education (procedure) yes Invalid Interpretation Code [facility] Work Phone: No Panel Information SARS-CoV-2 & FLU Antigen (Rapid) [facility] Work Phone: S. pyogenes Ag IF Ql (Throat ) S. pyogenes Ag IA Ql (Unsp spec) [facility] Work Phone: Vital Signs Date Time Vital Sign Value Performing Clinician Facility 12-18-2024 09:23-0400 Body temperature 97.9 [degF] Dr. Adam Paiz MD Work Phone: [facility] 12-18-2024 09:23-0400 Diastolic blood pressure 74 mm[Hg] Dr. Adam Paiz MD Work Phone: [facility] 12-18-2024 09:23-0400 Heart rate 82 /min Dr. Adam Paiz MD Work Phone: [facility] 12-18-2024 09:23-0400 Respiratory rate 19 /min Dr. Adam Paiz MD Work Phone: [facility] 12-18-2024 09:23-0400 SaO2% (BldA) [Mass fraction] 100 % Dr. Adam Paiz MD Work Phone: [facility] 12-18-2024 09:23-0400 Systolic blood pressure 133 mm[Hg] Dr. Adam Paiz MD Work Phone: [phone])[phone] [place] [address] 12-18-2024 06:41-0400 Body height 170.[address] Adam Paiz MD Work Phone: 6(796)778-765420 [address] 12-18-2024 06:41-0400 Body mass index (BMI) [Ratio] 20 kg/m2 Dr. Adam Paiz MD Work Phone: 2(907)441-753920 [address] 12-18-2024 06:41-0400 Body weight 58.[address] Adam Paiz MD Work Phone: 2([phone])[phone] [place] [address] 11-17-2024 07:26-0400 Body mass index (BMI) [Ratio] 19.1 kg/m2 Dr. Adam Paiz MD Work Phone: 5(624)[phone] [place] [address] 11-17-2024 07:26-0400 Body temperature 98.3 [degF] Dr. Adam Paiz MD Work Phone: 0(060)[phone] [address] 11-17-2024 07:26-0400 Body weight 55.[address] Adam Paiz MD Work Phone: 2(292)215-420320 [address] 11-17-2024 07:26-0400 Diastolic blood pressure 62 mm[Hg] Dr. Adam Paiz MD Work Phone: 5(636)268-025020 [address] 11-17-2024 07:26-0400 Heart rate 62 /min Dr. Adam Paiz MD Work Phone: [phone])115-304720 [address] 11-17-2024 07:26-0400 SaO2% (BldA) [Mass fraction] 98 % Dr. Adam Paiz MD Work Phone: 1(456)[phone] [address] 11-17-2024 07:26-0400 Systolic blood pressure 102 mm[Hg] Dr. Adam Paiz MD Work Phone: 9(411)693-778620 [address] 11-05-2024 03:39-0400 Body temperature 98.4 [degF] Dr. Adam Paiz MD Work Phone: [facility] 11-05-2024 03:39-0400 Diastolic blood pressure 88 mm[Hg] Dr. Adam Paiz MD Work Phone: [facility] 11-05-2024 03:39-0400 Heart rate 76 /min Dr. Adam Paiz MD Work Phone: [facility] 11-05-2024 03:39-0400 Respiratory rate 16 /min Dr. Adam Paiz MD Work Phone: [facility] 11-05-2024 03:39-0400 SaO2% (BldA) [Mass fraction] 96 % Dr. Adam Paiz MD Work Phone: [facility] 11-05-2024 03:39-0400 Systolic blood pressure 127 mm[Hg] Dr. Adam Paiz MD Work Phone: [facility] 11-05-2024 02:52-0400 Body height 170.[address] Adam Paiz MD Work Phone: [facility] 11-05-2024 02:52-0400 Body mass index (BMI) [Ratio] 19.8 kg/m2 Dr. Adam Paiz MD Work Phone: [facility] 11-05-2024 02:52-0400 Body weight 57.[address] Adam Paiz MD Work Phone: [facility] 09-20-2024 12:52-0400 Body mass index (BMI) [Ratio] 19.54 kg/m2 Adam Chandler APRN.RN [employer] Work Phone: [facility] 09-20-2024 12:52-0400 Body temperature 97.2 [degF] Adam Chandler APRN.RN [employer] Work Phone: [facility] 09-20-2024 12:52-0400 Body weight 56.6 kg Adam Chandler APRN.RN [employer] Work Phone: [facility] 09-20-2024 12:52-0400 Diastolic blood pressure 76 mm[Hg] Adam Chinst. [facility] JAVA XML DEVELOPER.RN [employer] Work Phone: [facility] 09-20-2024 12:52-0400 Heart rate 65 /min Adam Chinzuhair J[employer] XML DEVELOPER.RN [employer] Work Phone: [facility] [facility] 12:52-0400 Respiratory rate 16 /min Adam Chinst. [facility] [employer] DEVELOPER[employer] Work Phone: [facility] 09-20-2024 12:52-0400 SaO2% (BldA) [Mass fraction] 99 % Adam Chinst. [facility] [employer] XML DEVELOPER[employer] Work Phone: [facility] 09-20-2024 12:52-0400 Systolic blood pressure 123 mm[Hg] Adam Chinst. [facility] JAVA XML DEVELOPER[employer] Work Phone: [facility] 08-30-2024 14:06-0400 Body temperature 97.8 [degF] Dr. Adam Paiz MD Work Phone: [facility] 08-30-2024 14:06-0400 Diastolic blood pressure 78 mm[Hg] Dr. Adam Paiz MD Work Phone: [facility] 08-30-2024 14:06-0400 Heart rate 64 /min Dr. Adam Paiz MD Work Phone: [facility] 08-30-2024 14:06-0400 Respiratory rate 18 /min Dr. Adam Paiz MD Work Phone: [facility] 08-30-2024 14:06-0400 SaO2% (BldA) [Mass fraction] 99 % Dr. Adam Paiz MD Work Phone: [facility] 08-30-2024 14:06-0400 Systolic blood pressure 121 mm[Hg] Dr. Adam Paiz MD Work Phone: [facility] 08-30-2024 13:31-0400 Body mass index (BMI) [Ratio] 20.1 kg/m2 Dr. Adam Paiz MD Work Phone: [facility] 08-30-2024 13:31-0400 Body weight 58.[address] Adam Paiz MD Work Phone: [facility] 08-30-2024 13:06-0400 Body height 170.[address] Adam Paiz MD Work Phone: [facility] 08-04-2024 18:32-0500 Body mass index (BMI) [Ratio] 19.68 kg/m2 Mayelin Clutter PA-C Work Phone: [facility] 08-04-2024 18:32-0500 Body temperature 98.01 [degF] Mayelin Clutter PA-C Work Phone: [facility] 08-04-2024 18:32-0500 Body weight 57 kg Mayelin Clutter PA-C Work Phone: [facility] 08-04-2024 18:32-0500 Diastolic blood pressure 80 mm[Hg] Mayelin Clutter PA-C Work Phone: [facility] 08-04-2024 18:32-0500 Heart rate 90 /min Mayelin Clutter PA-C Work Phone: [facility] 08-04-2024 18:32-0500 Respiratory rate 18 /min Mayelin Clutter PA-C Work Phone: [facility] 08-04-2024 18:32-0500 SaO2% (BldA) [Mass fraction] 96 % Mayelin Clutter PA-C Work Phone: [facility] 08-04-2024 18:32-0500 Systolic blood pressure 134 mm[Hg] Mayelin Clutter PA-C Work Phone: [facility] 04-16-2024 15:35-0500 Body mass index (BMI) [Ratio] 18.82 kg/m2 Scot Valdez APRN.CNP Work Phone: [facility] 04-16-2024 15:35-0500 Body temperature 96.91 [degF] Scot José Miguel JAVA XML DEVELOPER[employer] Work Phone: [facility] 04-16-2024 15:35-0500 Body weight 54.5 kg Scot José Miguel JAVA XML DEVELOPER.[employer] Work Phone: [facility] 04-16-2024 15:35-0500 Diastolic blood pressure 78 mm[Hg] Scot José Miguel JAVA XML DEVELOPER.[employer] Work Phone: [facility] 04-16-2024 15:35-0500 Heart rate 85 /min Scot José Miguel JAVA XML DEVELOPER.[employer] Work Phone: [facility] 04-16-2024 15:35-0500 Respiratory rate 20 /min Scot José Miguel JAVA XML DEVELOPER.[employer] Work Phone: [facility] 04-16-2024 15:35-0500 SaO2% (BldA) [Mass fraction] 98 % Scot Valdez JAVA XML DEVELOPER.[employer] Work Phone: [facility] 04-16-2024 15:35-0500 Systolic blood pressure 120 mm[Hg] Scot José Miguel JAVA XML DEVELOPER.[employer] Work Phone: [facility] 10-23-2023 17:08-0400 Body mass index (BMI) [Ratio] 18.71 kg/m2 Bushra Ovalle-Ike JAVA XML DEVELOPER.[employer] Work Phone: [facility] 10-23-2023 17:08-0400 Body temperature 98.8 [degF] Bushra Guerreroler-Ike JAVA XML DEVELOPER.RN [employer] Work Phone: [facility] 10-23-2023 17:08-0400 Body weight 54.2 kg Bushra Ovalle-Ike JAVA XML DEVELOPER.[employer] Work Phone: [facility] 10-23-2023 17:08-0400 Diastolic blood pressure 76 mm[Hg] Bushra Pracaydenler-Wood JAVA XML DEVELOPER.[employer] Work Phone: [facility] 10-23-2023 17:08-0400 Heart rate 95 /min Bushra Guerreroler-Wood JAVA XML DEVELOPER.RN [employer] Work Phone: [facility] 10-23-2023 17:08-0400 Respiratory rate 18 /min Bushra Pracaydenler-Wood JAVA XML DEVELOPER.RN [employer] Work Phone: [facility] 10-23-2023 17:08-0400 SaO2% (BldA) [Mass fraction] 97 % Bushra Praisler-Wood JAVA XML DEVELOPER.RN [employer] Work Phone: [facility] 10-23-2023 17:08-0400 Systolic blood pressure 145 mm[Hg] Bushra Praisler-Wood JAVA XML DEVELOPER.RN [employer] Work Phone: [facility] 09-25-2023 15:26-0400 Body temperature 98.01 [degF] Adam Pendlebury JAVA XML DEVELOPER.RN [employer] Work Phone: [facility] 09-25-2023 15:26-0400 Body weight 54 kg Adam Pendmarry JAVA XML DEVELOPER.RN [employer] Work Phone: [facility] 09-25-2023 15:26-0400 Diastolic blood pressure 83 mm[Hg] Adam Pendlebury JAVA XML DEVELOPER.RN [employer] Work Phone: [facility] 09-25-2023 15:26-0400 Heart rate 98 /min Adam Pendlebury JAVA XML DEVELOPER.RN [employer] Work Phone: [facility] 09-25-2023 15:26-0400 Respiratory rate 20 /min Adam Pendlebury JAVA XML DEVELOPER.RN [employer] Work Phone: [facility] 09-25-2023 15:26-0400 SaO2% (BldA) [Mass fraction] 99 % Adam Pendlebury JAVA XML DEVELOPER.RN [employer] Work Phone: [facility] 09-25-2023 15:26-0400 Systolic blood pressure 144 mm[Hg] Adam Pendlebury JAVA XML DEVELOPER.RN [employer] Work Phone: [facility] 08-21-2023 04:37-0400 Body temperature 97.6 [degF] [facility] 08-21-2023 04:37-0400 Diastolic blood pressure 86 mm[Hg] [facility] 08-21-2023 04:37-0400 Heart rate 79 /min [facility] 08-21-2023 04:37-0400 Respiratory rate 16 /min [facility] 08-21-2023 04:37-0400 SaO2% (BldA) [Mass fraction] 96 % [facility] 08-21-2023 04:37-0400 Systolic blood pressure 137 mm[Hg] [facility] 08-21-2023 03:41-0400 Body height 170.18 cm [facility] 08-21-2023 03:41-0400 Body mass index (BMI) [Ratio] 20.7 kg/m2 [facility] 08-21-2023 03:41-0400 Body weight 59.87 kg [facility] 08-15-2023 20:52-0500 Body height 170.18 cm [facility] 08-15-2023 20:52-0500 Body mass index (BMI) [Ratio] 19.4 kg/m2 [facility] 08-15-2023 20:52-0500 Body temperature 97.9 [degF] [facility] 08-15-2023 20:52-0500 Body weight 56.35 kg [facility] 08-15-2023 20:52-0500 Diastolic blood pressure 59 mm[Hg] [facility] 08-15-2023 20:52-0500 Heart rate 79 /min [facility] 08-15-2023 20:52-0500 Respiratory rate 18 /min [facility] 08-15-2023 20:52-0500 SaO2% (BldA) [Mass fraction] 97 % [facility] 08-15-2023 20:52-0500 Systolic blood pressure 109 mm[Hg] [facility] 07-07-2023 03:00-0500 Diastolic blood pressure 75 mm[Hg] [facility] 07-07-2023 03:00-0500 Heart rate 81 /min [facility] 07-07-2023 03:00-0500 Respiratory rate 16 /min [facility] 07-07-2023 03:00-0500 SaO2% (BldA) [Mass fraction] 99 % [facility] 07-07-2023 03:00-0500 Systolic blood pressure 106 mm[Hg] [facility] 07-07-2023 00:16-0500 Body height 170.18 cm [facility] 07-07-2023 00:16-0500 Body mass index (BMI) [Ratio] 20.5 kg/m2 [facility] 07-07-2023 00:16-0500 Body temperature 97 [degF] [facility] 07-07-2023 00:16-0500 Body weight 59.4 kg [facility] 05-10-2023 03:41-0500 Body temperature 97.2 [degF] No Generic Provider [facility] 05-10-2023 03:41-0500 Diastolic blood pressure 99 mm[Hg] No Generic Provider [facility] 05-10-2023 03:41-0500 Heart rate 95 /min No Generic Provider [facility] 05-10-2023 03:41-0500 Respiratory rate 16 /min No Generic Provider [facility] 05-10-2023 03:41-0500 SaO2% (BldA) [Mass fraction] 97 % No Generic Provider [facility] 05-10-2023 03:41-0500 Systolic blood pressure 147 mm[Hg] No Generic Provider [facility] 05-10-2023 01:51-0500 Body height 170.2 cm No Generic Provider [facility] 05-10-2023 01:51-0500 Body mass index (BMI) [Ratio] 19.42 kg/m2 No Generic Provider [facility] 05-10-2023 01:51-0500 Body weight 56.25 kg No Generic Provider [facility] 03-14-2023 20:59-0400 Body height 162.56 cm [facility] 03-14-2023 20:59-0400 Body mass index (BMI) [Ratio] 20.4 kg/m2 [facility] 03-14-2023 20:59-0400 Body temperature 97.8 [degF] [facility] 03-14-2023 20:59-0400 Body weight 53.97 kg [facility] 10-04-2023 20:59-0400 Diastolic blood pressure 70 mm[Hg] [facility] 03-14-2023 20:59-0400 Heart rate 86 /min [facility] 03-14-2023 20:59-0400 Respiratory rate 15 /min [facility] 03-14-2023 20:59-0400 SaO2% (BldA) [Mass fraction] 97 % [facility] 03-14-2023 20:59-0400 Systolic blood pressure 129 mm[Hg] [facility] 03-05-2023 13:47-0400 Body temperature 97.3 [degF] Rodolfo Nicholson MD Work Phone: [facility] 03-05-2023 13:47-0400 Body weight 54.34 kg Rodolfo Nicholson MD Work Phone: [facility] 03-05-2023 13:47-0400 Diastolic blood pressure 72 mm[Hg] Rodolfo Nicholson MD Work Phone: [facility] 03-05-2023 13:47-0400 Heart rate 65 /min Rodolfo Nicholson MD Work Phone: [facility] 03-05-2023 13:47-0400 Respiratory rate 18 /min Rodolfo Nicholson MD Work Phone: [facility] 03-05-2023 13:47-0400 SaO2% (BldA) [Mass fraction] 99 % Rodolfo Nicholson MD Work Phone: [facility] 03-05-2023 13:47-0400 Systolic blood pressure 123 mm[Hg] Rodolfo Nicholson MD Work Phone: [facility] 01-31-2023 [id number] Body height 162.56 cm [facility] 01-31-2023 [id number] Body mass index (BMI) [Ratio] 20.9 kg/m2 [facility] 01-31-2023 [id number] Body temperature 98 [degF] [facility] 01-31-2023 00:0400 Body weight 55.5 kg [facility] 01-31-2023 00:21-0400 Diastolic blood pressure 85 mm[Hg] [facility] 01-31-2023 00:21-0400 Heart rate 104 /min [facility] 01-31-2023 00:21-0400 Respiratory rate 18 /min [facility] 01-31-2023 00:21-0400 SaO2% (BldA) [Mass fraction] 99 % [facility] 01-31-2023 00:21-0400 Systolic blood pressure 139 mm[Hg] [facility] 12-05-2022 16:38-0400 Body temperature 97.39 [degF] Alicia Isidro APRN.RN [employer] Work Phone: [facility] 12-05-2022 16:38-0400 Body weight 53.34 kg Alicia Isidro APRN.RN [employer] Work Phone: [facility] 12-05-2022 16:38-0400 Diastolic blood pressure 70 mm[Hg] Alicia Isidro APRN.RN [employer] Work Phone: [facility] 12-05-2022 16:38-0400 Heart rate 99 /min Alicia Isidro APRN.RN [employer]GR[employer] Work Phone: [facility] 12-05-2022 16:38-0400 Respiratory rate 18 /min Alicia Isidro APRN.RN [employer] Work Phone: [facility] 12-05-2022 16:38-0400 SaO2% (BldA) [Mass fraction] 98 % Alicia Isidro APRN.RN [employer] Work Phone: [facility] 12-05-2022 16:38-0400 Systolic blood pressure 122 mm[Hg] Alicia Isidro APRN.RN [employer] Work Phone: [facility] 12-05-2022 00:12-0400 Body height 170.18 cm [facility] 12-05-2022 00:12-0400 Body mass index (BMI) [Ratio] 18.8 kg/m2 [facility] 12-05-2022 00:12-0400 Body temperature 97.2 [degF] [facility] 12-05-2022 00:12-0400 Body weight 54.7 kg [facility] 12-05-2022 00:12-0400 Diastolic blood pressure 60 mm[Hg] [facility] 12-05-2022 00:12-0400 Heart rate 80 /min [facility] 12-05-2022 00:12-0400 Respiratory rate 16 /min [facility] 12-05-2022 00:12-0400 SaO2% (BldA) [Mass fraction] 96 % [facility] 12-05-2022 00:12-0400 Systolic blood pressure 106 mm[Hg] [facility] 11-29-2022 19:15-0400 Body height 170.18 cm [facility] 11-29-2022 19:15-0400 Body mass index (BMI) [Ratio] 18.1 kg/m2 [facility] 11-29-2022 19:15-0400 Body temperature 98.5 [degF] [facility] 11-29-2022 19:15-0400 Body weight 52.61 kg [facility] 11-29-2022 19:15-0400 Diastolic blood pressure 80 mm[Hg] [facility] 11-29-2022 19:15-0400 Heart rate 97 /min [facility] 11-29-2022 19:15-0400 Respiratory rate 15 /min [facility] 11-29-2022 19:15-0400 SaO2% (BldA) [Mass fraction] 100 % [facility] 11-29-2022 19:15-0400 Systolic blood pressure 149 mm[Hg] [facility] 11-13-2022 10:51-0400 Body temperature 97.39 [degF] Yamila Torres MD Work Phone: [facility] 11-13-2022 10:51-0400 Body weight 54.43 kg Yamila Torres MD Work Phone: [facility] 11-13-2022 10:51-0400 Diastolic blood pressure 78 mm[Hg] Yamila Torres MD Work Phone: [facility] 11-13-2022 10:51-0400 Heart rate 68 /min Yamila Torres MD Work Phone: [facility] 11-13-2022 10:51-0400 Respiratory rate 16 /min Yamila Torres MD Work Phone: [facility] 11-13-2022 10:51-0400 SaO2% (BldA) [Mass fraction] 99 % Yamila Torres MD Work Phone: [facility] 11-13-2022 10:51-0400 Systolic blood pressure 145 mm[Hg] Yamila Torres MD Work Phone: [facility] 04-05-2022 01:58-0400 Body height 170.18 cm [facility] Work Phone: 04-05-2022 01:58-0400 Body mass index (BMI) [Ratio] 19.1 kg/m2 [facility] Work Phone: 04-05-2022 01:58-0400 Body temperature 98.2 [degF] [facility] Work Phone: 04-05-2022 01:58-0400 Body weight 55.3 kg [facility] Work Phone: 04-05-2022 01:58-0400 Diastolic blood pressure 71 mm[Hg] [facility] Work Phone: 04-05-2022 01:58-0400 Heart rate 74 /min [facility] Work Phone: 04-05-2022 01:58-0400 Respiratory rate 17 /min [facility] Work Phone: 04-05-2022 01:58-0400 SaO2% (BldA) [Mass fraction] 99 % [facility] Work Phone: 04-05-2022 01:58-0400 Systolic blood pressure 125 mm[Hg] [facility] Work Phone: 04-03-2022 01:00-0400 Diastolic blood pressure 77 mm[Hg] [facility] Work Phone: 04-03-2022 01:00-0400 Systolic blood pressure 118 mm[Hg] [facility] Work Phone: 04-03-2022 00:58-0400 Body mass index (BMI) [Ratio] 18.4 kg/m2 [facility] Work Phone: 04-03-2022 00:58-0400 Body temperature 97 [degF] [facility] Work Phone: 04-03-2022 00:58-0400 Body weight 53.52 kg [facility] Work Phone: 04-03-2022 00:58-0400 Heart rate 74 /min [facility] Work Phone: 04-03-2022 00:58-0400 Respiratory rate 15 /min [facility] Work Phone: 04-03-2022 00:58-0400 SaO2% (BldA) [Mass fraction] 98 % [facility] Work Phone: 03-27-2022 02:39-0400 Heart rate 88 /min [facility] Work Phone: 03-27-2022 02:39-0400 Respiratory rate 21 /min [facility] Work Phone: 03-27-2022 02:06-0400 Body height 170.18 cm [facility] Work Phone: 03-27-2022 02:06-0400 Body mass index (BMI) [Ratio] 19.1 kg/m2 [facility] Work Phone: 03-27-2022 02:06-0400 Body temperature 98 [degF] [facility] Work Phone: 03-27-2022 02:06-0400 Body weight 55.4 kg [facility] Work Phone: 03-27-2022 02:06-0400 Diastolic blood pressure 83 mm[Hg] [facility] Work Phone: 03-27-2022 02:06-0400 SaO2% (BldA) [Mass fraction] 97 % [facility] Work Phone: 03-27-2022 02:06-0400 Systolic blood pressure 139 mm[Hg] [facility] Work Phone: 03-06-2022 11:55-0400 Heart rate 88 /min Nirmala Bogner PA-C Work Phone: [facility] 03-06-2022 11:44-0400 Body temperature 97 [degF] Nirmala Bogner PA-C Work Phone: [facility] 03-06-2022 11:44-0400 Body weight 55.16 kg Nirmala Bogner PA-C Work Phone: [facility] 03-06-2022 11:44-0400 Diastolic blood pressure 82 mm[Hg] Nirmala Bogner PA-C Work Phone: [facility] 03-06-2022 11:44-0400 Respiratory rate 18 /min Nirmala Bogner PA-C Work Phone: [facility] 03-06-2022 11:44-0400 SaO2% (BldA) [Mass fraction] 97 % Nirmala Bogner PA-C Work Phone: [facility] 03-06-2022 11:44-0400 Systolic blood pressure 130 mm[Hg] Nirmala Bogner PA-C Work Phone: [facility]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 Plan of Treatment Date Care Activity Detail Author Start: 2048 Zoster Vaccines (1 of 2) Zoster Vacc alethea (1 of 2) [facility] Start: 2029 DTaP/Tdap/Td Vaccine s (6 - Td or Tdap) DTaP/Tdap/Td Vaccines (6 - Td or Tdap) [facility] Start: 2029 [facility] Start: 2029 Urine microalbumin profile [facility] Start: 02-09-2025 Influenza vaccination Influenz a Vaccine (Season Ended) [facility] Start: 12-18-2024 [facility] Start: 08-30-2024 End: 08-30-2024 [facility] Start: 08-30-2024 [facility] Start: 02-10-2024 Covid-19 Vaccine ( season) Covid-19 Vaccine ( season) [facility] Start: 02-10-2024 Influenza vaccination C [facility] Start: 08-21-2023 [facility] Start: 08-15-2023 [facility] Start: 07-07-2023 End: 07-07-2023 [facility] Start: 06-11-2023 Behavioral Health Screening Behavioral Health Screening [facility] Start: 02-09-2023 Covid-19 Vaccine ( season) Covid-19 Vaccine () [facility] Start: 02-09-2023 Influenza vaccination [facility] Start: 06-11-2022 DEPRESSION ASSESSMENT DEPRESSION ASS [facility]ONSIL [facility]PITALMENT [facility] Start: 02-09-2022 Influenza vaccination [facility] Start: 06-11-2021 DEPRESSION ASSESSMENT DEPRESSION ASS ESSMENT [facility] Start: 2020 Depression screening using PHQ-9 (Patient Health Questionnaire 9) score DEPRESSION SCREENING (PHQ9) [facility] Start: 08-08-2019 End: 08-08-2019 Treatment [facility] Start: 08-05-2019 End: 08-05-2019 Treatment 08/05/2019 Treatment Rehabilitation Susy Paiz, PT [facility] Start: 08-01-2019 End: 08-01-2019 Treatment 08/01/2019 Treatment Rehabilitation Zara Osborne, [facility] Start: 07-29-2019 End: 07-29-2019 Treatment [facility] Start: 07-25-2019 End: 07-25-2019 Treatment 07/25/2019 Treatment Rehabilitation Zara Osborne, [facility] Start: 07-22-2019 End: 07-22-2019 Treatment 07/22/2019 Treatment Rehabilitation Zara Osborne [facility] Start: 07-18-2019 End: 07-18-2019 Treatment 07/18/2019 Treatment Rehabilitation Zara Osborne, [facility] Start: 07-15-2019 End: 07-15-2019 Treatment 07/15/[address], PT [facility] Start: 07-11-2019 End: 07-11-2019 Treatment 07/11/2019 Treatment Rehabilitation Zara Osborne, [facility] Start: 07-09-2019 End: 07-09-2019 Treatment 07/09/2019 Treatment Rehabilitation Lexa Stephens MD [address] [place] [address] [phone] Zara Osborne, [employer] [facility] Start: 07-08-2019 End: 07-08-2019 Treatment 07/08/[address], PT [facility] Start: 06-19-2019 End: 06-19-2019 Office Visit 06/19/2019 Office Visit Physical Medicine and Rehabilitation Lexa Stephens MD [address] [place] [address] [phone] Dao Matthews MD [address] [place] [address] [place] [address] [phone] [facility] Start: 06-10-2019 End: 06-10-2019 Evaluation 06/10/2019 Evaluation Rehabilitation Lexa Stephens MD [address] [place] [address] [phone], PT [facility] Start: 05-30-2019 End: 05-30-2019 Evaluation 05/30/2019 Evaluation Rehabilitation Lexa Stephens MD [address] [place] [address] [address] [place] [address] [phone], PT [facility] Start: 02-09-2019 Influenza vaccinatio n given SEQUENTIAL INFLUENZA VACCINE (#1) [facility] Start: 02-09-2018 Influenza vaccinatio n given SEQUENTIAL INFLUENZA VACCINE (#1) [facility] Start: 04-02-2017 End: 04-02-2017 Appointment Appointment [facility] Work Phone: Start: 2016 Anxiety Screening Anxiety Screening [facility] Start: 2016 Depression Screening Depression Scre [facility] Start: 2016 HEPATITIS C SCREENING HEPATITIS C [facility] Start: 2016 Hepatitis C screening Hepatitis C [facility] Start: 12-12-2016 HIV SCREENING HIV SCREENING [facility] Start: 2016 HIV screening HIV Screening [facility] Start: 05-12-2015 End: 05-12-2015 Radex clavicle complete X-Ray, Clavicle [facility] Work Phone: Start: 2014 Meningococcal B Vacc ine: Consider Based On Risk (1 of 2 - Patient Seeks Protection) Meningococcal B Vaccine: Consider Based On Risk (1 of 2 - Patient Seeks Protection) [facility] Start: 2013 HPV Vaccine (1 - Mal e 3-dose series) HPV Vaccine (1 - Male 3-dose series) [facility] Start: 2013 Vaccination for williams n papillomavirus HPV VACCINES (1 - Male 3-dose series) [facility] Start: 2012 PEDS TO ADULT TRANSI TION ANNUAL ASSESSMENT PEDS TO ADULT TRANSITION ANNUAL ASSESSMENT [facility] Start: 2010 Adult depression screening assessment DEPRESSION SCREENING [facility] Start: 2010 PEDS TO ADULT TRANSI TION INITIAL DISCUSSION PEDS TO ADULT TRANSITION INITIAL DISCUSSION [facility] Start: 2009 HPV VACCINE (1 - Mal e 2-dose series) HPV VACCINE (1 - Male 2-dose series) [facility] Start: 2009 HPV Vaccines (1 - Ma le 2-dose series) HPV Vaccines (1 - Male 2-dose series) [facility] Start: 2009 Vaccination for williams n papillomavirus HPV VACCINES (1 - Male 2-dose series) [facility] Start: 2008 MENINGOCOCCAL B: Consider based on risk (1 of 2 - Risk Bexsero 2-dose series) MENINGOCOCCAL B: Consider based on risk (1 of 2 - Risk Bexsero 2-dose series) [facility] Start: 2007 HPV VACCINE (1 - Mal e 2-dose series) HPV VACCINE (1 - Male 2-dose series) [facility] Start: 04-01-2004 Varicella vaccination Varicell a Vaccines (1 of 2 - 2-dose childhood series) [facility] Start: 2003 COVID-19 VACCINE (#1) COVID-19 VACCI NE (#1) [facility] Start: 2003 COVID-19 VACCINE (1) COVID-19 VACCIN E (1) [facility] Start: 2001 History and physical examination, annual for health maintenance Wellness Visit [facility] Start: 1998 COVID-19 VACCINE (#1) COVID-19 VACCI NE (#1) [facility] Start: 1998 HIV screening HIV Screening [facility] Start: 1998 Lipid panel Lipid Panel [facility] Start: 1998 Tetanus vaccination TETANUS EVERY 10 YR [facility] Start: 1998 Yearly Adult Physical Yearly Adult P [facility] Bacteria identified in Urine by Culture [facility] COVID & INFLUENZA A/ B & RSV PCR, ROUTINE COVID & INFLUENZA A/B & RSV PCR, ROUTINE Microbiology Routine Viral illness Ordered: 09/20/2024 [facility] Work Phone: Comment on above: Ordered: 09/20/2024 Patient Education [facility] Work Phone: Patient referral [facility] Work Phone: High View Draw [facility] Lab STAT 06/01/2019 2:59 AM EST [facility] End: 02-07-2019 S. pyogenes Org specific cx Ql (Throat) Strep A Culture, Throat Microbiology BARRY Once for 1 Occurrences starting 02/07/2019 until 02/07/2019, 1 completed [facility] Comment on above: Once for 1 Occurrenc es starting 02/07/2019 until 02/07/2019, 1 completed S. pyogenes Org spec ific cx Ql (Throat) [facility] End: 04-12-2019 S. pyogenes Org specific cx Ql (Throat) Strep A Culture, Throat Microbiology BARRY Once for 1 Occurrences starting 04/12/2019 until 04/12/2019, 1 completed [facility] Comment on above: Once for 1 Occurrenc es starting 04/12/2019 until 04/12/2019, 1 completed SARS-CoV-2 (COVID-19 ) RNA [Presence] in Respiratory specimen by LISA with probe detection 2019 CORONAVIRUS Microbiology Routine Sore throat Ordered: 03/06/2022 [facility] Work Phone: Comment on above: Ordered: 03/06/2022 Streptococcus pyogen es antigen assay Group A Streptococcus Rapid Screen [facility] Work Phone: [employer] Lab STAT 06/01/2019 2:59 AM EST [facility] Immunizations Immunization Date Immunization Notes Care Provider Tomas zuluaga 2019 diphtheria, tetanus toxoids and acellular pertussis vaccine, unspecified formulation [facility] 2019 Seasonal, quadrivale nt, recombinant, injectable influenza vaccine, preservative free [facility] 2019 tetanus toxoid, redu arleth diphtheria toxoid, and acellular pertussis vaccine, adsorbed [facility] 2019 flu vac qv 2019,18yr up,rc,PF, (FLUBLOK QUAD) syringe [facility] 2019 influenza virus vacc ine, unspecified formulation Yamila Torres MD Work Phone: [facility] 12-24-2015 meningococcal polysaccharide (groups A, C, Y and W-135) diphtheria toxoid conjugate vaccine (MCV4P) [facility] 03-04-2004 measles, mumps and rubella virus vaccine Geremias Layla DO Work Phone: [facility] 03-04-2004 poliovirus vaccine, inactivated Geremias Layla DO Work Phone: [facility] 03-04-2003 diphtheria, tetanus toxoids and acellular pertussis vaccine, unspecified formulation Geremias Layla DO Work Phone: [facility] 07-10-2001 diphtheria, tetanus toxoids and acellular pertussis vaccine, unspecified formulation Geremias Layla DO Work Phone: [facility] 07-10-2001 hepatitis B vaccine, pediatric or pediatric/adolescent dosage Geremias Layla DO Work Phone: [facility] 07-10-2001 poliovirus vaccine, inactivated Geremias Layla DO Work Phone: [facility] 07-11-2000 diphtheria, tetanus toxoids and acellular pertussis vaccine, unspecified formulation Geremias Layla DO Work Phone: [facility] 07-11-2000 hepatitis B vaccine, pediatric or pediatric/adolescent dosage Geremias Layla DO Work Phone: [facility] 07-11-2000 poliovirus vaccine, inactivated Geremias Rich DO Work Phone: [facility] 09-29-1999 diphtheria, tetanus toxoids and acellular pertussis vaccine, unspecified formulation Geremias Ulloaiman DO Work Phone: [facility] 09-29-1999 haemophilus influenz ae type b conjugate and Hepatitis B vaccine Geremias Layla DO Work Phone: [facility] 09-29-1999 measles, mumps and rubella virus vaccine Geremias Layla DO Work Phone: [facility] 09-29-1999 trivalent poliovirus vaccine, live, oral Geremias Martinezn DO Work Phone: [facility] Payers Date Payer Category Payer Self-pay [id number] 2023 Medicare (Managed Care) [facility] MEDIC[facility] [id number] 2023 Unknown [id number] 2023 Medicare [id number]. 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 2018 Medicaid [facility] x[facility]xx 2018-Present [id number] 2017 Medicaid [facility] A[facility] [id number] 2017-Present [phone] [address] [place] [address] Medicaid [id number] 2017 Medicaid [id number] [id number]. [id number] 2017 Medicaid [id number] 2017 Medicaid [id number] 1998 Unknown [id number] 2.840.1.077161.3.579.2. 297 1998 Unknown [id number] 2.16840.1.126568.3.579.2. 297 1998 Unknown [id number] 2.16840.1.701260.3.579.2. 297 1998 Unknown [id number] 2.16840.1.859159.3.579.2. 297 1998 Unknown [id number] 2.16840.1.741939.3.579.2. 903 1998 Unknown [id number] 2.16840.1.109489.3.579.2. 903 1998 Unknown [id number] 2.16840.1.746815.3.579.2. 90 1998 Unknown [id number] 2.16.840.1.358184.3.579.2. 903 1998 Unknown [id number] 2.16.840.1.598346.3.579.2. 903 1998 Unknown [id number] 2.16.840.1.315407.3.579.2. 903 1998 Unknown [id number] 2.16.840.1.875785.3.579.2. 903 1998 Unknown [id number] 2.16.840.1.649110.3.579.2. 90 1998 Unknown [id number] 2.16.840.1.637907.3.579.2. 90 1998 Unknown [id number] 2.16.840.1.406553.3.579.2. 90 1998 Unknown [id number] 2.16840.1.409906.3.579.2. 90 1998 Unknown [id number] 2.16.840.1.577512.3.579.2. 90 1998 Unknown [id number] 2.16.840.1.789384.3.579.2. 90 1998 Unknown [id number] 2.16840.1.686608.3.579.2. 90 1998 Unknown [id number] 2.16.840.1.428631.3.579.2. 90 1998 Unknown [id number] 2.16.840.1.283815.3.579.2. 1246 Medicare MEDICARE PART A B [id number] Unknown [id number] 2.16840.1.176736.3.579.2. 443 Unknown [id number] 2.16840.1.480159.3.579.2. 462 Unknown [id number] 2.16.840.1.231119.3.579.2. 462 Unknown [id number] 2.16.840.1.537334.3.579.2. 462 Unknown [id number] 2.16.840.1.603303.3.579.2. 462 Unknown [id number] 2.16.840.1.826252.3.579.2. 462 Unknown [id number] 2.16840.1.677088.3.579.2. 462 Unknown [id number] 2.16.840.1.126330.3.579.2. 462 Social History Date Type Detail Facility Start: 10-06-2018 End: 12-18-2024 Tobacco smoking status NHIS Never smoker [facility] Start: 10-06-2018 End: 2019 History SDOH Alcohol Frequency 1 [facility] Start: 1998 Sex Assigned At Not on file [facility] Start: 02-07-2019 End: 05-31-2019 Alcohol intake Lifetime non-drinker (finding) [facility] Start: 10-30-2019 History SDOH Physica l Activity DPW 5 [facility] Start: 10-30-2019 History SDOH Physica l Activity MPS 4 [facility] Start: 09-04-2021 End: 05-10-2023 Exposure to SARS-CoV-2 (event) Not sure [facility] Start: 11-17-2020 End: 09-20-2024 Alcohol intake Current non-drinker of alcohol (finding) [facility] Start: 10-26-2021 End: 08-21-2023 Tobacco smoking status WVIS Unknown if ever smoked [facility] Start: 01-15-2020 None [facility] Start: 10-26-2020 Non-smoker [facility] Start: 1998 Sex Assigned At Male [facility] Start: 01-09-2018 End: 03-06-2022 Tobacco use and exposure Smokeless tobacco non-user [facility] Start: 05-19-2020 End: 03-05-2023 History of Social function [facility] Start: 05-19-2020 End: 03-05-2023 Tobacco use panel [facility] Retired 07/10/2019 P HQ Score 0 [facility] Start: 08-30-2024 Sex Male (finding) [facility] Functional Status Date Assessment Result Facility [facility]30[facility]21 [facility] Mental Status Date Assessment Result Facility 11-05-2024 Cognitive function Level Of Cons ciousness Awake;Alert;Appropriate;Follow s Commands [facility] Work Phone: 08-30-2024 Cognitive function Voice/Name [facility] Work Phone: 01-31-2023 Cognitive function Voice/Name [facility] Work Phone: 11-29-2022 Cognitive function Level Of Cons ciousness Awake;Alert;Appropriate [facility] Work Phone: 03-05-2022 Cognitive function Level Of Cons ciousness Awake;Alert;Appropriate;Follow s Commands [facility] Work Phone: 09-30-2021 [facility] 09-30-[facility]21 Mental Status [facility] Clinical Notes 07-30-2020 to 12-18-2024 Adam Chandler APRN.RN [facility] - 09/20/2024 1:03 PM EDT Note Date & Type Note Facility 12-18-2024 Radiology Diagnostic study note [facility] Imaging Services [address] [place] [address] Abdomen/Pelvis W IV Cont ONLY MR#: [id number] Acct: [id number] Name: JEZ HAIDER Rep #: [id number] : 2000 M 24 From: Chaparrita Magana MD PCP: Dr. Adam Paiz MD Status: REG ER Study:Abdomen/Pelvis W IV Cont ONLY Date of E xam: 12/18/24 Exam# [id number] Ordering Dr: Aleksandr Ronquillo DO EXAM: CT Abdomen and Pelvis With Intravenous Contrast CLINICAL INDICATION: ABDOMINAL PAIN TECHNIQUE: Axial computed tomography images of the abdomen and pelvis with intravenous contrast. This CT exam was performed using one or more of the following dose reduction techniques: automated exposure control, adjustment of the mA and/or kV according to patient size, and/or use of iterative reconstruction technique. COMPARISON: No relevant prior studies available. FINDINGS: LUNG BASES: Unremarkable. No mass. No consolidation. ABDOMEN: LIVER: Hepatomegaly with fatty infiltration. GALLBLADDER AND BILE DUCTS: Unremarkable. No calcified stones. No ductal dilation. PANCREAS: Unremarkable. No mass. No ductal dilation. SPLEEN: Unremarkable. No splenomegaly. ADRENALS: Unremarkable. No mass. KIDNEYS AND URETERS: Unremarkable. No stones within either kidney. No hydronephrosis. STOMACH AND BOWEL: Fecal retention in the colon consistent with constipation. No obstruction. No mucosal thickening. PELVIS: APPENDIX: Appendix is not clearly visualized. No significant fat stranding in the right lower abdominal quadrant to suggest acute inflammation. BLADDER: Unremarkable. No mass. REPRODUCTIVE: Unremarkable as visualized. ABDOMEN and PELVIS: INTRAPERITONEAL SPACE: Unremarkable. No free air. No significant fluid collection. BONES/JOINTS: No acute fracture. No dislocation. SOFT TISSUES: Unremarkable. VASCULATURE: Unremarkable. No abdominal aortic aneurysm. LYMPH NODES: Unremarkable. No enlarged lymph nodes. CT/Abdomen/Pelvis W IV Cont ONLY IMPRESSION: 1. Hepatomegaly with fatty infiltration. 2. Fecal retention in the colon consistent with constipation. 3. No obstructive uropathy. 4. Appendix is not clearly visualized. No significant fat stranding in the right lower abdominal quadrant to suggest acute inflammation. Reading Location: [facility] CC: Dr. Aleksandr Ronquillo DO; Dr. Adam Paiz MD ~ Shopfitter: Signed [facility] 11-05-2024 Discharge summary [facility] 09-20-2024 Note SARS-COV-2 (AGENT OF COVID-19) RNA: Not detected INFLUENZA A RNA: Not detected INFLUENZA B RNA: Not detected RESPIRATORY SYNCYTIAL VIRUS (RSV) RNA: Not detected [facility] Comment on above: Performed By: #### 9 [id number] #### [facility] CLIA [id number] [address] [place] [address] [place] [address] [place] 09-20-2024 Note HNO ID: [id number] Author: ADAM CHANDLER APRN.RN [facility] Service: ? Author Type: Nurse Practitioner Type: [...] - S TENDON - ACHILLES Bilateral 01/30/2018 [facility] ALLERGIES Latex MEDICATIONS - hydrocortisone (ANUSOL-HC) [...] of care. This note was generated using WeVue software. It may contain errors in wording, punctuation, or spelling. Adam Chandler APRN.EDIE [facility] 09-20-2024 History of Present illness Narrative [...] x4 S TENDON - ACHILLES Bilateral 01/30/2018 [facility] ALLERGIES Latex MEDICATIONS hydrocortisone (ANUSOL-HC) 2.5 [...] of care. This note was generated using WeVue software. It may contain errors in wording, punctuation, or spelling. Adam Chandler APRN.RN [facility] documented in this encounter [facility] 08-30-2024 Discharge summary [facility] 08-30-2024 Radiology Diagnostic study note [facility] Imaging Services [address] [place] [address] Chest 1 View (Portable) MR#: [id number] Acct: [id number] Name: JEZ HAIDER POCASSET Rep #: [id number] : 2000 M 24 From: Madyson Hobbs MD PCP: Dr. Adam Paiz MD Status: REG ER Study:Chest 1 View (Portable) Date of Exam: 08/30/24 Exam# [id number] Ordering Dr: Xu Gordon MD PROCEDURE: CHEST [...] View (Portable) IMPRESSION: Negative Chest. Reading Location: [id number] CC: Dr. Xu Gordon MD; Dr. Adam Paiz MD ~ Shopfitter: Signed [facility] 08-30-2024 Discharge summary Note Date/Time August 30, 2024 2:35pm [facility] Medical Records Department [address] [place] [address] Emergency Department Summary 08/30/24 MR#: [id number] Acct: [id number] Name: JEZ HAIDER Rep #:[id number] : [...] drained and that his heart feels heavy. [facility] Medical History Migraines Herniated lumbar disc without [...] hydrocortisone 2.5 % topical cream 1 applic TN QHS #30 grams 02/26/24 Unknown Rx with [...] (Auto) 47.2 Lymph % (Auto) 43.2 H [place] % (Auto) 6.3 Eos % (Auto) 1.9 [...] Clarity Clear Urine pH 6.0 Ur Specific [place] 1.025 Urine Protein 30 H Urine Glucose [...] 08/30/24 13:40 IMPRESSION: Negative Chest. Reading Location: [facility] Discharge Plan Triage Chief Complaint: Chest Pain [...] % cream with perineal applicator 1 applic TN QHS Qty: 30 0RF naproxen 500 mg tablet 500 mg PO BID Qty: 14 0RF Stand Alone Forms: ED Work / School Excuse Primary Care Provider: Adam Paiz Referrals: Adam Paiz MD [Primary Care Provider] - 3-5 Days if not improving Activity Restrictions/Additional Instructions: Drink plenty of oral fluids. Follow-up with your primary care provider. Returnwith new or worsening symptoms. Print Language: Lebanese Disposition Disposition: Home, Self Care What to do if you have Problems For any increased pain, shortness of breath, bleeding, nausea or vomiting, chestpain, or any unexpected problems, contact your Primary Care Provider. Call [facility] ([phone]) or report to the closest Emergency Room. Call 911 if necessary. 08/30/24 1435 <Electronically signed by Xu Gordon MD> Cosigner Signature (if applicable): CC: Dr. Adam Paiz MD ~ Signed [facility] Work Phone: 1(715) 541-696502-24-2025 NoteHNO ID: [id number] Author: MAYELIN NICOLAS PA-C Service: ? Author Type: Physician Director Of Counterintelligence Type: Progress Notes Filed: 08/04/2024 18:51 Note Text: This note was created using [employer] Creek Networks[employer]. Subjective Jez Haider is a 24 year [...] and the patient was placed off work 24-05 August 2024. CLINICAL IMPRESSION: Acute Streptococcal Tonsillitis; Chronic Myalgia ASSESSMENT/PLAN: 1. Sore throat - ICD9: 462, ICD10: J02.9 (primary diagnosis) - STREP A MOLECULAR (POC) 2. Acute non-recurrent streptococcal tonsillitis - ICD9: 034.0, ICD10: J03.00 - AMOXICILLIN 875 MG-POTASSIUM CLAVULANATE 125 MG TABLET 3. Myalgia - ICD9: 729.1, ICD10: M79.10 - METHOCARBAMOL 500 MG TABLET [facility]02-24-2025 History of Present illness Narrative* Mayelin Nicolas PA-C - 08/04/2024 6:45 PM EST This note was created using EQAL. Subjective Jez Haider is a 24 year [...] TABLET Mayelin Nicolas PA-C [facility] NoteHNO ID: [id number] Author: SCOT VALDEZ APRN.RN [facility] Service: ? Author Type: Nurse Practitioner Type: [...] x4 S TENDON - ACHILLES Bilateral 01/30/2018 [facility] ALLERGIES Latex MEDICATIONS hydrocortisone (ANUSOL-HC) 2.5 [...] He is not toxic-appearing. HENT: Mouth/Throat: Lips: [place]. Mouth: Mucous membranes are moist. Cardiovascular: Rate [...] - CYCLOBENZAPRINE 10 MG TABLET Scot Valdez [facility] History of Present illness Narrative* Scot Valdez APRN.EDIE - 04/16/2024 4:09 PM EST Subjective HPI [...] x4 S TENDON - ACHILLES Bilateral 01/30/2018 [facility] ALLERGIES Latex MEDICATIONS hydrocortisone (ANUSOL-HC) 2.5 [...] He is not toxic-appearing. HENT: Mouth/Throat: Lips: Deloit. Mouth: Mucous membranes are moist. Cardiovascular: Rate [...] - CYCLOBENZAPRINE 10 MG TABLET Scot Valdez APRN.RN INTEGRITY documented in this encounterC[facility]innati [facility]-14-[facility] Instructions* Patient Instructions* Bushra Olivares APRN.RN INTEGRITY - 10/23/2023 5:49 PM EDT ASSESSMENT/PLAN: 1. [...] Discussed expected course of illness Bushra Olivares APRN.RN INTEGRITY What is strep throat? Strep throat is [...] treated with antibiotics. When to call the juvenile detention officer If your child has a sore throat that persists (not one that goes away after her first drink in the morning), whether or not it is accompanied by fever, headache, stomachache, or extreme fatigue, you should call your juvenile detention officer. That call should be made even more urgently if your child seems extremely ill, or if she has difficulty breathing or extreme trouble swallowing (causing her to drool). This may indicate a more serious infection. Treatment If the strep test shows that your child does have strep throat, your juvenile detention officer will prescribe anantibiotic to be taken by [...] However, rheumatic fever is rare in the [place] and in children under five years [...] usually the best solution. documented in this encounterCincinnati [facility]05-14-2024 NoteHNO ID: [id number] Author: BUSHRA OLIVARES APRN.RN INTEGRITY Service: ? Author Type: Nurse Practitioner Type: [...] x4 S TENDON - ACHILLES Bilateral 01/30/2018 [facility] ALLERGIES Latex MEDICATIONS cyclobenzaprine (FLEXERIL) 10 [...] Discussed expected course of illness Bushra Olivares APRN.[facility]05-14-2024 History of Present illness Narrative* Bushra Olivares APRN.[facility] - 10/23/2023 5:26 PM EDT Subjective Cough [...] x4 S TENDON - ACHILLES Bilateral 01/30/2018 [facility] ALLERGIES Latex MEDICATIONS cyclobenzaprine (FLEXERIL) 10 [...] Discussed expected course of illness Bushra Olivares APRN.RN INTEGRITY documented in this encounterCincinnati [facility]04-16-2024 NoteHNO ID: [id number] Author: ADAM CHANDLER APRN.CNP Service: ? Author Type: Nurse Practitioner Type: [...] x4 S TENDON - ACHILLES Bilateral 01/30/2018 [facility] ALLERGIES Latex MEDICATIONS cyclobenzaprine (FLEXERIL) 10 [...] of care. This note was generated using WeVue software. It may contain errors in wording, punctuation, or spelling. Adam Chandler APRN.[facility]04-16-2024 History of Present illness Narrative* Adam Chandler APRN.RN INTEGRITY - 09/25/2023 3:31 PM EDT Subjective HPI [...] x4 S TENDON - ACHILLES Bilateral 01/30/2018 [facility] ALLERGIES Latex MEDICATIONS cyclobenzaprine (FLEXERIL) 10 [...] of care. This note was generated using WeVue software. It may contain errors in wording, punctuation, or spelling. Adam Chandler APRN.RN INTEGRITY documented in this encounterCincinnati [facility] Center03-06-2024 Discharge summary Author Xu Gordon [facility] August 15, 2023 9:25pm Note Date/Time August 15, 2023 9:25 pm [facility] Medical Records Department [address] [place] [address] Emergency Department Summary 08/15/23 MR#: [id number] Acct: [id number] Name: JEZ HAIDER Rep #:[id number] : [...] or chills, numbness is worse with movement. [facility] Medical History Cerebral palsy Herniated lumbar disc [...] be discharged to follow-up. He will take lgzr-pkk-yccznge naproxen as needed. Return instructions to the [...] problems, contact your Primary Care Provider. Call [facility] ([phone]) or report to the closest Emergency Room. Call 911 if necessary. 08/15/232124 <Electronically signed by Xu Gordon MD> Cosigner Signature (if applicable): CC: Dr. Adam Paiz MD ~ Signed [facility] Work Phone: 1(136) 101-481711-30-2023 Emergency department Note* Marcy Galeas PA-C - [...] Stephanie Emery 05/10/2023 2:55 AM Dictation workstation: [id number] XR wrist right 3+ views Final Result No acute osseous abnormality. MACRO: None Signed by: Stephanie Emery 05/10/2023 2:54 AM Dictation workstation: [id number] Procedure Procedures Marcy Galeas PA-C 05/10/23 0301 documented in this [facility] Work Phone: 1(680) 710-537611-30-2023 Physician Emergency department Note* Marcy Galeas PA-C [...] Stephanie Emery 05/10/2023 2:55 AM Dictation workstation: [id number] XR wrist right 3+ views Final Result No acute osseous abnormality. MACRO: None Signed by: Stephanie Emery 05/10/2023 2:54 AM Dictation workstation: [id number] Procedure Procedures Marcy Galeas PA-C 05/10/23 0301 [facility] Work Phone: 1(160) 866-560510-04-2023 Discharge summary Author Boris Beckford [facility] March 14, 2023 10:24pm Note Date/Time March 14, 2023 10 :24pm [facility] Medical Records Department [address] [place] [address] Emergency Department Summary 03/14/23 MR#: [id number] Acct: [id number] Name: JEZ HAIDER Rep #:[id number] : [...] distally. No chest pain or trouble breathing. [facility] Medical History Cerebral palsy Herniated [...] he gets overhead. 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 Const Vital Signs: 03/14/23 [...] ED Shoulder Sprain Prescriptions: No Action lidocaine-hyalur nn-gwad-jqpn 2 % spray gel 1 spray topical [...] your Primary Care Provider. Call [facility] ([phone]) or report to the closest Emergency Room. Call 911 if necessary. 03/14/232223 <Electronically signed by Boris Beckford MD> Cosign Signature (if applicable): CC: Dr. Adam Paiz MD ~ Signed [facility] Work Phone: 1(860) 567-670410-04-2023 Hospital Discharge instructions Additional Instructions Only use sling for a few days. During that time you need to come out of the sling at least 6-8 times a day and do range of motion as demonstratedWPike [facility] Work Phone: 1(259) 370-240409-25-2023 History of Present illness Narrative* Rodolfo Nicholson [...] PCP. Rodolfo Nicholson MD documented in this encounterCincinnati [facility] Center06-27-2023 History of Present illness Narrative* Alicia Isidro APRN.[facility] - 12/05/2022 4:52 PM EDT CC: Patient [...] x4 S TENDON - ACHILLES Bilateral 01/30/2018 [facility] ALLERGIES Latex MEDICATIONS tiZANidine (ZANAFLEX) 4 [...] Patient agreeable to treatment plan. Alicia Isidro APRN.EDIE documented in this encounterCincinnati Va Medical Center06-05-2023 Emergency department Note * Lekna Kumar RN - 11/13/2022 1:34 PM EDT Patient discharged in no noted distress with script to his pharmacy and PCP follow up. Lenka Kumar RN 11/13/22 7154 [id number] Emergency department Note* Lenka Kumar RN - 11/13/2022 1:34 PM EDT Patient discharged in no noted distress with script to his pharmacy and PCP follow up. Lenka Kumar RN 11/13/22 1335 * Yamila Torres MD - 11/13/2022 10:49 [...] Culture. Procedure Abnormality Status --------- ------ Complete Urinalysis[[id number]] Abnormal Final result Please view results for [...] Discharge 11/13/2022 12:39:01 PM PATIENT REFERRED TO: [address] [address] Schedule an appointment as soon as possible [...] Torres MD 11/13/22 1240 documented in this [facility]06-05-2023 Physician Emergency department Note* Yamila Torres MD [...] Culture. Procedure Abnormality Status --------- ------ Complete Urinalysis[[id number]] Abnormal Final result Please view results for [...] Discharge 11/13/2022 12:39:01 PM PATIENT REFERRED TO: [facility] [address] [address] Schedule an appointment as soon as possible [...] Medicine Provider Yamila Torres MD 11/13/22 1240 [facility] HospitalVlisvq62-20-0346 Miscellaneous Notes* Telephone Encounter - London Confer - 04/05/2022 8:19 AM EDT Received ED summary for abd pain from [facility]. Placed in provider's inbox for review. Route to MA scanning. documented in this encounterCincinnati [facility] Medical Center10-24-2022 Miscellaneous Notes* Telephone Encounter - Cheralyn Confer - 04/03/2022 7:53 AM EDT Received ED summary and xray for fall from [facility]. Placed in provider's inbox for review. Route to MA scanning. documented in this encounterCincinnati Va Medical Center10-17-2022 Miscellaneous Notes* Telephone Encounter - Cheralyn Confer - 03/27/2022 8:00 AM EDT Received ED summary and chest x ray imgage report from [facility]. Placed in provider's inbox for review. Route to MA scanning. documented in this encounterCincinnati Va Medical Center09-26-2022 History of Present illness Narrative* [...] sooner. Nirmala Bloom PA-C documented in this encounterCincinnati Va Medical Center08-29-2022 History of Present illness Narrative* Scot Valdez APRN.RN INTEGRITY - 02/06/2022 2:39 PM EDT Images from [...] x4 S TENDON - ACHILLES Bilateral 01/30/2018 [facility] ALLERGIES Latex MEDICATIONS dicyclomine (BENTYL) 10 [...] TOPICAL CREAM Agrees to plan Scot Valdez APRN.EDIE documented in this encounterCincinnati Va Medical Center08-24-2022 Miscellaneous Notes* Telephone Encounter - London Mcghee - 02/01/2022 8:34 AM EDT Received ED summary and labs abd pain from [facility]. Placed in provider's inbox for review. Route to MA scanning. documented in this encounterCincinnati Va Medical Center08-23-2022 History of Present illness Narrative* [...] him to the ER. documented in this encounterCincinnati Va Medical Center08-05-2022 Miscellaneous Notes* Telephone Encounter - Kamryn Hooker LPN - 01/13/2022 11:59 AM EDT Received 01/13/2022 from [facility] Physical therapy. Placed in provider's inbox for review. Route to MA scanning Rehabilitation Services discharge summary documented in this encounterCincinnati Va Medical Center06-10-2022 Miscellaneous Notes* Telephone Encounter - Kamryn Hooker LPN - 11/18/2021 1:29 PM EDT Received 11/18/2021 from [facility] Rehabilitation services. Placed in provider's inbox for review. Route to MA for scanning documented in this encounterCincinnati Va Medical Center05-19-2022 Miscellaneous Notes* Telephone Encounter - London Mcghee - 10/27/2021 7:54 AM EDT Received ED summary from [facility]. Placed in provider's inbox for review. Route to MA scanning. documented in this encounterCincinnati Va Medical Center04-22-2022 Hospital Discharge instructions Patient Education [...] may also be helpful. You may use mjet-oxj-fupcoaj pain medicine to control pain, unless another [...] wet, you can dry it with a balance and hairspring assembler on cool setting. You may return [...] foot become cold, blue, numb, or tingly [phone] [employer]. [address] [place] [address], [place] [address]. All rights reserved. This information is not intended as a substitute for professional medical care. Always follow yourhealthcare professional's instructions. Follow Up Care 09/30/2021 21:18:59 With:MIRI MCMAHON, ANANYA MONTENEGRO Address: [address] [place] [address] [place] [address]- [phone] When:2-4 days [facility] 12-10-2021 Hospital Discharge instructions Patient Education 05/20/2021 [...] the ears or bruising around the eyes [phone] [employer]. [address] [place] [address]. All rights reserved. This information is not intended as a substitute for professional medical care. Always follow yourhealthcare professional's instructions. Follow Up Care 05/19/2021 23:59:32 With:Your Doctor Address: When:2-4 days [facility] 06-09-2021 NoteHNO ID: [id number] Author: Amilcar Hernandez APRN.RN INTEGRITY Service: ? Author Type: Nurse Practitioner Type: [...] - S TENDON - ACHILLES Bilateral 01/30/2018 [facility] FAMILY HISTORY Problem Relation Age of [...] providing this service. 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 I reviewed all pertinent data. SIGNATURE: Amilcar Hernandez APRN.RN INTEGRITY PATIENT NAME: Jez Haider DATE: November 17, 2020 TIME: 1:53 [facility]05-25-2021 NoteHNO ID: [id number] Author: Fatemeh Soares LPN Service: ? Author [...] Patient left in good condition. Fatemeh Soares [facility]05-25-2021 NoteHNO ID: [id number] Author: Yves Nguyen MD Service: ? Author [...] - S TENDON - ACHILLES Bilateral 01/30/2018 [facility] Family History Problem Relation Age of [...] proceed. The patient was brought to the [facility] procedure room and positioned in the prone [...] injected in divid (more content not included)... [facility]05-25-2021 NoteHNO ID: [id number] Author: Ashley Huddleston MA Service: ? Author Type: Aluminum Siding Applicator Type: Progress Notes Filed: 11/02/2020 12:46 PM [...] - S TENDON - ACHILLES Bilateral 01/30/2018 [facility] FAMILY HISTORY Problem Relation Age of [...] kg (126 lb) BMI 19.73 kg/m? [facility] NoteProcedure (AGSPINE1) AKBARJEZ ([id number]) 2000 M Date Time Provider Department 11/02/20 [...] - S TENDON - ACHILLES Bilateral 01/30/2018 [facility] FAMILY HISTORY Problem Relation Age of [...] taken for this visit. Physical Exam Ashley HuddlestonIRISH 11/02/2020 12:33 PM Signed Black And White Printer Operator?s Name: Neri Are you on a blood [...] a steroid: no Covid-19 Vaccine: no Ashley HuddlestonIRISH 11/02/2020 12:46 PM Signed Subjective HPI Review [...] - S TENDON - ACHILLES Bilateral 01/30/2018 [facility] FAMILY HISTORY Problem Relation Age of [...] for 24 hours. and (more content not included)...[facility]05-25-2021 NoteHNO ID: [id number] Author: Ashley Huddleston MA Service: ? Author Type: Aluminum Siding Applicator Type: Progress Notes Filed: 11/02/2020 12:46 PM [...] - S TENDON - ACHILLES Bilateral 01/30/2018 [facility] FAMILY HISTORY Problem Relation Age of [...] no vitals taken for this visit. [facility]am[facility]-2021 NoteHNO ID: [id number] Author: Yves Nguyen MD Service: ? Author Type: Physician Type: Progress Notes Filed: 10/18/2020 5:03 AM Note Text: [facility] Initial Evaluation Form CHIEF COMPLAINT: LBP-->BLE Referred by: Lou Vargas [address] [facility] [phone] [facility] October 11, 2020: Jez Haider is a 20 year old male presenting to the office for evaluation and treatment of LBP-->BLE ongoing for past x2-3 years in back and progressively worsening over the past year. Patient saw Dr. Vargas from spine surgery who referred him to here for an evaluation of AYSHA. 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 ?A (more content not included)...[facility]05-03-2021 NoteHNO ID: [id number] Author: Ashley Huddleston MA Service: ? Author Type: Aluminum Siding Applicator Type: Progress Notes Filed: 10/18/2020 5:03 AM [...] - S TENDON - ACHILLES Bilateral 01/30/2018 [facility] FAMILY HISTORY Problem Relation Age of [...] no vitals taken for this visit. [facility]amCentral [facility]03-09-2021 NoteHNO ID: [id number] Author: Lou Vargas Service: ? Author Type: Physician Type: Progress Notes Filed: 08/17/2020 4:24 PM Note Text: NEUROSURGERY FOLLOW UP OFFICE NOTE Lou Vargas MD Date of visit: August 17, 2020 Patient Name: Mr.Preston Thomas Haider Date of : 2000 Current Age: [age] year old Sex: male MRN/E# [id number] Last Office Visit: 07/30/2020 Chief Complaint: Patient [...] - S TENDON - ACHILLES Bilateral 01/30/2018 [facility] FAMILY HISTORY Problem Relation Age of [...] position. ?No significant s (more content not included)...[facility]02-19-2021 NoteHNO ID: [id number] Author: Amy (Public Policy Coordinator Edie) Ranjana Service: ? Author Type: Nurse Practitioner Type: Progress Notes Filed: 07/30/2020 3:16 PM Note Text: NEUROSURGERY CONSULT NOTE Amy Chilel APRN.EDIE Vargas MD Date of visit: July 30, 2020 Patient Name: Mr.Preston Thomas Haider Date of : 2000 Current Age: [age] year old Sex: male MRN/E# [id number] Chief Complaint: Patient presents with: New Patient [...] - S TENDON - ACHILLES Bilateral 01/30/2018 [facility] FAMILY HISTORY Problem Relation Age of [...] IX: Good and e (more content not included)...[facility] Discharge summary Author Jose Randall [facility] January 31, 2023 1:02am Note Date/Time January 31, 2023 1: 00am [facility] Medical Records Department [address] [place] [address] Emergency Department Summary 01/31/23 MR#: [id number] Acct: [id number] Name: JEZ HAIDER Rep #:[id number] : 2000 22 From: Jose Randall DO PCP: Dr. Adam Paiz MD Status:REG ER Location: ED HPI History of Present Illness Chief Complaint: Burn Informant: patient Narrative Narrative: Patient is a 22-year-old male with past medical history of cerebral palsy. He states that he was playing in an mip-bk-ckayj football game a few days ago when he got jammed running a wheel route. He states that he felt pain as soon as he was jammed but was able to continue playing. He states he also developed some burn to the same area. He reports he has been doing ibmu-aip-hnysdnm creams without much relief and secondary to this wanted to be evaluated make sure he did not cause any type of internal injury. [facility] Medical History Cerebral palsy Herniated lumbar disc [...] EXAM Physical Exam Const Vital Signs: 01/31/23 00:21 01/31/23 00:21 Temperature 98 F Temperature Source Temporal [...] ED Muscle Strain, Extremity Prescriptions: New lidocaine-hyalur qy-sqfv-kgfy 2 % spray gel 1 spray topical TID PRN (Reason: pain) Qty: 120 0RF Primary Care Provider: Adam Paiz Referrals: Adam Paiz MD [Primary Care Provider] - Disposition Disposition: Home, Self Care What to do if you have Problems For any increased pain, shortness of breath, bleeding, nausea or vomiting, chestpain, or any unexpected problems, contact your Primary Care Provider. Call [facility] ([phone]) or report to the closest Emergency Room. Call 911 if necessary. 01/31/23 0102 <Electronically signed by Jose Randall DO> Cosigner Signature (if applicable): CC: Dr. Adam Paiz MD ~ Signed [facility] Work Phone: Discharge summary Author Ashvin Durant [facility] July 07, 2023 2:32am Note Date/Time July 07, 2023 2 :31am [facility] Medical Records Department [address] [place] [address] Emergency Department Summary 07/07/23 MR#: [id number] Acct: [id number] Name: JEZ HAIDER Rep #:[id number] : [...] Recent Illness/Hospitalization: No PFSH PFSH Medical History Cerebral palsy Herniated lumbar disc [...] Clarity Cloudy Urine pH 7.0 Ur Specific [place] 1.015 Urine Protein 15 H Urine Glucose [...] your Primary Care Provider. Call [facility] ([phone]) or report to the closest Emergency Room. Call 911 if necessary. 07/07/23 0232 <Electronically signed by Ashvin Durant MD> Cosigner Signature (if applicable): CC: Dr. Adam Paiz MD ~ Signed [facility] Work Phone: Discharge summary Author Saeid Hadley [facility] Note Date/Time November 05, 2024 3:19a m [facility] Medical Records Department [address] [place] [address] Emergency Department Summary 11/05/24 MR#: [id number] Acct: [id number] Name: JEZ HAIDER Rep #:[id number] : [...] History obtained from others: none Consults: none [facility] Narrative: The patient was initially hemodynamically stable, afebrile and nontoxic- appearing. Exam without focus of neurovascular compromise in bilateral lower extremities. I considered the following differential diagnosis: Musculoskeletal strain, rhabdomyolysis I offered a laboratory evaluation to definitively rhabdomyolysis or any sequela. Patient was alert and orient x 3 refused labs at this time. Given he had not tried any ukch-lkd-zulvrmf pain medication I chose to start thereby [...] Discharge home This note was generated with [employer] dictation software. It may contain incorrectwords, spelling, [...] for further outpatient evaluationand management. Print Language: Lebanese Disposition Disposition: Home, Self Care What to do if you have Problems For any increased pain, shortness of breath, bleeding, nausea or vomiting, chestpain, or any unexpected problems, contact your Primary Care Provider. Call [facility] ([phone]) or report to the closest Emergency Room. Call 911 if necessary. 11/05/24318 <Electronically signed by Saeid Hadley DO> Cosigner Signature (if applicable): CC: Dr. Adam Paiz MD ~ Signed [facility] Work Phone: Evaluation + Plan note No data available for this section [facility] Evaluation noteNo assessment information available [facility] Work Phone: Evaluation note* Diagnosis Onset Date Resolution Status Left knee pain acute Patella nicole acute Cerebral palsy chronic [facility] Work Phone: Evaluation note* Diagnosis Generalized abdominal pain- Primary Abdominal pain, generalized [facility] Diagnosis Rash- Primary Rash and other nonspecific skin eruption documented in this encounter [facility] note* Diagnosis Sore throat- Primary Acute pharyngitis documented in this encounter [facility] note* Diagnosis Generalized abdominal pain- Primary Abdominal pain, generalized [facility] Diagnosis Acute cough- Primary documented in this encounter [facility] note* Diagnosis Muscle aches- Primary documented in this encounter [facility] note* Diagnosis Acute pain of right shoulder- Primary Wrist sprain, right, initial encounter documented in this encounter [facility] Work Phone: Evaluation note* Diagnosis Pharyngitis, unspecified etiology- Primary Strep throat Streptococcal sore throat documented in this encounter [facility] note* Diagnosis Strep throat- Primary Streptococcal sore throat Viral URI with cough Acute upper respiratory infections of unspecified site Sore throat Acute pharyngitis documented in this encounter [facility] note* Diagnosis Nausea and vomiting, unspecified vomiting type- Primary Muscle ache Mylagia and myositis, unspecified documented in this encounter [facility] note* Diagnosis Sore throat- Primary Acute pharyngitis Acute non-recurrent streptococcal tonsillitis Myalgia Mylagia and myositis, unspecified [facility]* Diagnosis Viral illness- Primary Unspecified viral infection, in conditions classified elsewhere and of unspecified site [facility] Additional Instructions Plenty of fluids and rest. Warm salt water gargling. Motrin and Tylenol for pain and body aches. Follow-up with your doctor if not improving return if worse.[facility] Work Phone: Hospital Discharge instructions Additional Instructions Follow-up with your primary care physician or the gravity meter observer Dr. Benites soon as possible.[facility] Work Phone: Hospital Discharge instructions* Attachments The following attachments cannot be sent through Care Everywhere. * Abdominal Pain, Adult ED (Lebanese) documented in this encounterSBet[facility]da North Hospitalital Discharge instructions Additional Instructions Wear wrist splint for support. Take ibuprofen or naproxen as directed. Follow-up with your primary care provider. You may need outpatient imaging or referral to a hand specialist for the numbness in your fourth and fifth fingers.[facility] Work Phone: Hospital Discharge instructions Additional Instructions Drink plenty of oral fluids. Follow-up with your primary care provider. Return with new or worsening symptoms.[facility] Work Phone: Hospital Discharge instructions Additional Instructions Thank you for trusting us with your care today! Please take Tylenol (2 pills, 650 mg), ibuprofen (2 pills, 400 mg) every 6 hours as needed for pain and fever control. Please return to the emergency department if your symptoms change or worsen. Please follow with your primary care physician for further outpatient evaluation and management.[facility] Work Phone: Progress note No data available for this section [facility] Reason for referral (narrative)No reason for referral information availableWPike Community Hospital Work Phone: Summary Purpose Family History [...] Documents on File Type Date Recorded Patient Pot Builder Expl anation Advance Directives and Livin g Will 10/06/2018 11:00 PM Advance Directives and Livin g Will 12/16/2018 6:47 PM Documents on File Type Date Recorded Patient Pot Builder Expl anation Advance Directives and Livin g Will 10/06/2018 11:00 PM Advance Directives and Livin g Will 02/07/2019 4:46 AM declined Documents on File Type Date Recorded Patient Pot Builder Expl anation Advance Directives and Livin g Will 10/06/2018 11:00 PM Advance Directives and Livin g Will 04/12/2019 12:10 AM Documents on File Type Date Recorded Patient Pot Builder Expl anation Advance Directives and Livin g Will 10/06/2018 11:00 PM Advance Directives and Livin g Will 04/12/2019 12:10 AM Documents on File Type Date Recorded Patient Pot Builder Expl anation Advance Directives and Livin g Will 10/06/2018 11:00 PM Advance Directives and Livin g Will 06/01/2019 12:00 AM Documents on File Type Date Recorded Patient Pot Builder Expl anation Advance Directives and Livin g Will 10/06/2018 11:00 PM Advance Directives and Livin g Will 12/01/2019 12:00 AM Documents on File Type Date Recorded Patient Pot Builder Expl anation Advance Directives and Livin g Will 10/06/2018 11:00 PM Advance Directives and Livin g Will 02/01/2019 10:17 PM Documents on File Type Date Recorded Patient Pot Builder Expl anation Advance Directive(s) 01/30/2018 10:47 AM Advance Directive(s) 12/12/2017 1:02 AM Advance Directive Response Recorded Date/ Time Living Will No October 26, 2021 1 0:08pm Power of News Gathering Technician No October 26, 2021 10:08pm Advance Directive Response Recorded Date/ Time Living Will No January 30 3:42am Power of News Gathering Technician No January 30 022 3:42am Advance Directive Response Recorded Date/ Time Living Will No January 31 10:20am Power of News Gathering Technician No January 31 022 10:20am Advance Directive Response Recorded Date/ Time Living Will No March 05, 2022 9:23pm Power of News Gathering Technician No February 9:23pm Advance Directive Response Recorded Date/ Time Living Will No March 27 2:09am Power of News Gathering Technician No March 27, 2022 2:09am Advance Directive Response Recorded Date/ Time Living Will No April 05 1:58am Power of News Gathering Technician No April 05, 2022 1:58am Advance Directive Response Recorded Date/ Time Living Will No November 29, 2022 7:45pm Power of News Gathering Technician No November 29 7:45pm Advance Directive Response Recorded Date/ Time Living Will No December 05, 2022 12:14am Power of News Gathering Technician No December 05 12:14am Advance Directive Response Recorded Date/ Time Living Will No January 31 12:21am Power of News Gathering Technician No January 31 023 12:21am Advance Directive Response Recorded Date/ Time Living Will No March 14 10:42pm Power of News Gathering Technician No March 14 023 10:42pm Advance Directive Response Recorded Date/ Time Living Will No July 07 12:20am Power of News Gathering Technician No July 07, 2023 12:20am Advance Directive Response Recorded Date/ Time Living Will No August 15, 2023 9:40pm Power of News Gathering Technician No August 14 9:40pm Advance Directive Response Recorded Date/ Time Living Will No August 21, 2023 4:02am Power of News Gathering Technician No August 20 4:02am Advance Directive Response Recorded Date/ Time Living Will No August 30, 2024 1:06pm Do you have a Healthcare Power of News Gathering Technician? No August 30, 2024 1:06pm Advance Directive Response Recorded Date/ Time Living Will No August 30, 2024 1:06pm Do you have a Healthcare Power of News Gathering Technician? No August 30, 2024 1:06pm Do you have a Healthcare Power of News Gathering Technician? No November 05, 2024 2:55am Advance Directive Response Recorded Date/ Time Do you have a Healthcare Power of News Gathering Technician? No December 18, 2024 6:39am Living Will No August 30, 2024 1:06pm Do you have a Healthcare Power of News Gathering Technician? No August 30, 2024 1:06pm Do you have a Healthcare Power of News Gathering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 30, 2024 Xu Gordon MD Emergency Provider Active Star t: August 30, 2024 End: August 30, 2024 Team Status: Inactive Member Role/Relationship Status Dates Dr. Adam Paiz MD Primary Care Provider Active Start: November 05, 2024 End: November 05, 2024 Dr. Saeid Hadley DO Attending Provider Active Start: November 05, 2024 End: November 05, 2024 Dr. Saeid Hadley DO Emergency Provider Active Start: November 05, 2024 End: November 05, 2024 Team Status: Inactive Member Role/Relationship Status Dates Dr. Adam Paiz MD Primary Care Provider Active Start: November 17, 2024 End: November 17, 2024 Dr. Adam Paiz MD Referring Provider Active Start: November 17, 2024 End: November 17, 2024 Latanya AGUILA PA Attending Provider Active Start: November 17, 2024 End: November 17, 2024 Team Status: Inactive Member Role/Relationship Status Dates Dr. Adam Paiz MD Primary Care Provider Active Start: December 18, 2024 End: December 18, 2024 Dr. Aleksandr Ronquillo DO Emergency Provider Active Start: December 18, 2024 End: December 18, 2024 Goals (unrecognized section and content) Goals [...] Yes 0213 (Given - Provid er: Soni Reardon, MC) FOR RECORDS PERTAINING TO PATIENTS WHO ARE [...] BE BASED ON THE PRIMARY CLINICAL RECORDS. [email or web address] provides no warranty or guarantee of the accuracy or completeness of information in this document.
[2024-12-20 05:40] VITALS: BP 148/70; PULSE 69; RESP 18; TEMP 36.8; O2SAT 98
== END 2024-12-20 05:41 | disposition home or self-care (01) ==
PROVIDERS: Emergency Provider Emergency Medicine; PCP Family Medicine; Visit Provider Emergency Medicine
DX: K59.00 Constipation, unspecified (principal); G80.9 Cerebral palsy, unspecified; R16.0 Hepatomegaly, not elsewhere classified
CPT/HCPCS: 99283

== ENCOUNTER 2025-05-25 12:14 | Emergency (ER) | payer MEDICARE, MEDICAID, SELFPAY ==
[2025-05-25 12:14] VITALS: BP 129/73; PULSE 97; RESP 16; TEMP 36.1; O2SAT 100; BMI 19.0
== END 2025-05-25 13:13 | disposition left against medical advice (07) ==
LOC: ED 13:24
PROVIDERS: PCP Family Medicine
DX: Z00.00 Encounter for general adult medical examination without abnormal findings (principal)